=== PATIENT | female | born 1955 | race Caucasian/White ===

== ENCOUNTER 2018-05-09 02:55 | Inpatient (IN) ==
[2018-05-09] MEDS ORDERED: RAPID SEQUENCE INDUCTION BAG ONE (02:59)
[2018-05-09] MEDS ORDERED: ETOMIDATE 2 MG/ML 20 ML VIAL IV ONE (03:02)
[2018-05-09] MEDS ORDERED: SODIUM CHLORIDE 0.9% 1000ML 2,000 ML IV ONE (03:28)
[2018-05-09] MEDS ORDERED: DKA GOAL RANGE 150-250 mg/dl ONE (03:32)
[2018-05-09] MEDS ORDERED: NYSTATIN CR 15 GM TUBE EXT STA (03:35)
[2018-05-09 03:44] LABS: iSTAT Hemoglobin 11.9 g/dl (12.0-16.0); iSTAT Ionized Calcium 1.22 mmol/l (1.12-1.32)
[2018-05-09 03:47] LABS: INR 1.3 (0.9-1.1); Partial Thromboplastin Ratio 0.8; Partial Thromboplastin Time 21.5 Seconds (21.0-31.0); Prothrombin Time 12.6 Seconds (9.0-12.0)
[2018-05-09] MEDS: INSULIN REGULAR 250 UNITS in SODIUM CHLORIDE 0.9% 247.5 ML IV SCH (03:59)
[2018-05-09 04:00] LABS: Appearance Urine Turbid (Clear); Color Urine Dark Yellow; Epithelial Cell Urine Auto >30 /lpf (0-5); Glucose Urine UA 1+ (Negative); Ketones Urine Trace (Negative); Leukocyte Esterase Urine 1+ (Negative); Nitrite Urine Negative (Negative); Protein Urine 3+ (Negative); Specific Gravity Urine 1.024 (1.000-1.030); Urobilinogen Urine Negative (Negative)
[2018-05-09] MEDS ORDERED: NovoLIN-R BOLUS FROM BAG IV ONE (04:00)
[2018-05-09 04:04] LABS: Alanine Aminotransferase 19 U/L (12-78); Albumin Globulin Ratio 0.5 (0.9-2); Albumin Level 2.2 gm/dl (3.4-5.0); Alkaline Phosphatase 94 U/L (45-117); Aspartate Aminotransferase 27 U/L (15-37); BUN Creatinine Ratio 33.6 (10-20); Bilirubin,Total 0.5 mg/dl (0.2-1); Blood Urea Nitrogen 69 mg/dl (7-18); Calcium 8.6 mg/dl (8.5-10.1); Carbon Dioxide 31 mmol/L (21-32); Chloride 106 mmol/L (98-107); Creatine Kinase 245 U/L (26-192); Est GFR (African American) 29.2; Est GFR (Non-African American) 25.2; Globulin 4.4 gm/dl (2.5-4.0); Glucose 469 mg/dl (70-99); Potassium 5.3 mmol/L (3.5-5.1); Sodium 138 mmol/L (136-145); Total Protein 6.6 gm/dl (6.4-8.2)
[2018-05-09 04:11] LABS: Hematocrit (blood only) 37.2 % (37-47); Hemoglobin 10.5 g/dL (12.0-16.0); Mean Corpuscular Hgb Conc 28.2 g/dL (32-36); Mean Corpuscular Volume 86.5 fL (80-100); Nucleated RBC # (auto) 0.11 K/uL (0-0); Nucleated RBC % (auto) 1.4 %; Platelet Count 27 K/uL (130-400); RDW Coefficient of Variation 18.2 % (11.5-14.5); RDW Standard Deviation 56.9 fL (36.4-46.3); White Blood Count 7.68 K/uL (4.8-10.8)
[2018-05-09 04:12] LABS: Basophils # (auto) 0.01 K/uL (0-0.2); Basophils % (auto) 0.1 %; Eosinophils # (auto) 0.03 K/uL (0-0.5); Eosinophils % (auto) 0.4 %; Hypochromasia Present; Immature Granulocytes # (auto) 0.05 K/uL (0.00-0.02); Immature Granulocytes % (auto) 0.7 %; Lymphocytes # (auto) 0.51 K/uL (1.2-3.4); Lymphocytes % (auto) 6.6 %; Monocytes # (auto) 0.54 K/uL (0.11-0.59); Neutrophils # (auto) 6.54 K/uL (1.4-6.5); Neutrophils % (auto) 85.2 %; Polychromasia 1+
[2018-05-09] MEDS: PROPOFOL 1,000 MG/100 ML VIAL IV SCH ×3 (04:20→17:24)
[2018-05-09 04:24] LABS: Creatine Kinase MB 6.7 ng/ml (0.5-3.6); NT Pro B Type Natriuretic Pept 8775 pg/ml (0-900); Troponin I 0.911 ng/ml (0-0.045)
[2018-05-09 04:39] LABS: Bilirubin Urine Negative (Negative); Ictotest Urine Negative (Negative)
[2018-05-09 04:40] LABS: Calcium Oxalate Crystals Urine Present (None Prsent); Cast Urine Automated >30 /lpf (0-5)
[2018-05-09 04:41] LABS: Bacteria Urine Automated 1+ (Negative)
[2018-05-09] MEDS ORDERED: PIPERACILLIN/TAZOBACTAM 4.5 GM/120 ML BAG IV ONE (04:42)
[2018-05-09] MEDS ORDERED: PIPERACILL/TAZOBAC CONSULT ACTIVE PRN ×2 (04:42→06:23)
[2018-05-09] MEDS ORDERED: DAPTOmycin 600 MG in SYRINGE 0 ML IV ONE (04:42)
[2018-05-09] MEDS ORDERED: IOVERSOL 100ml IV PRN (05:49)
--- NOTE | 2018-05-09 06:22 | Emergency Department Note ---
Entered by Kamran Becker acting as a scribe for History of Present Illness General Chief complaint: Hyperglycemia Source: family and EMS History of Present Illness Provider complaint: Hyperglycemia Onset (ago): hour(s) (About an hour ago) Location: head Pain Consistency: + other (Episodic) Associated symptoms: + confusion and + other (Altered mental status, respiratory issues) The patient is a 62 year old female who presents to the Emergency Room via EMS with an episode of hyperglycemia and respiratory issues that started about an hour prior to arrival, per EMS. Per EMS they were called to the house because she had an altered mental status and upon arrival she had a blood sugar that was 600+. She was also confused when trying to answer questions. Her blood pressure on scene was in the 130s systolic and her pulse rate was in the 70s. En route to the hospital she started going in and out of consciousness as well as some respitatory issues. Her C02 was in the 70s and her O2 sat was in the 80s on C-PAP with 1 albuterol in it. The patient was then intubated before arriving in the ED. En route she was given 30 of Etomidate, 10 of Versed, 100 of Fentanyl, 200 of Bicarb, 10 of Calcium and 550 of fluids. The patient has a history of renal failure, stage four metastatic breast cancer, CHF, and Diabetes. Per the patient's , the patient started getting a little strange around 1999 after eating dinner. He states she checked her blood sugar, which was elevated, but he is not sure if she took her insulin. Around 2229 he reports that she was very out of it and he checked her blood sugar which was 450. He tried to give her insulin but reports when he took the needle out of her, it was bent so he is not sure if she received any of it. She is currently not getting any chemotherapy for her cancer but she is on some other drug for it. He also noted that 2 days ago her [facility] doctor took her off of her Eliquis, Lisinopril and other drugs he did not know the name of because her platelet count is low around 33. He also said that her cancer has spread to her lungs, she has blood clots in both legs, and she has fractures in her shoulder, vertebrae, and ribs. Home Medications Home Medications Medication Instructions Recorded Confirmed Type anastrozole 1 mg PO DAILY 03/05/18 05/09/18 History atenolol 50 mg PO BID 03/05/18 05/09/18 History cholecalciferol (vitamin D3) 2,000 unit PO DAILY 03/05/18 05/09/18 History [Vitamin D3] fexofenadine [Rocio Allergy] 180 mg PO DAILY 03/05/18 05/09/18 History insulin aspart U-100 0 units SUBCUT AC 03/05/18 05/09/18 History insulin glargine [Lantus U-100 22 unit SUBCUT QPM 03/05/18 05/09/18 History Insulin] lorazepam 1 mg PO BID PRN 03/05/18 05/09/18 History oxycodone 5 - 10 mg PO Q6H PRN 03/05/18 05/09/18 History tizanidine 4 mg PO BID 03/05/18 05/09/18 History apixaban [Eliquis] See Label Instructions .ROUTE 03/06/18 05/09/18 Rx .COMPLEX #74 ea dexamethasone [Decadron] 40 mg PO DIRECTED 05/09/18 05/09/18 History turmeric-turmeric root extract 450 mg PO DAILY 05/09/18 05/09/18 History Allergies Allergy/AdvReac Type Severity Reaction Status Date / Time gabapentin AdvReac Hallucinati Verified 05/09/18 03:34 ng Past Med/Surg History Medical History Thrombocytopenia (Chronic) Metastatic breast cancer (Chronic) CKD (chronic kidney disease), stage III (Chronic) ATN (acute tubular necrosis) (Resolved) DM type 2 (diabetes mellitus, type 2) (Chronic) Hyperlipidemia (Chronic) Irritable bowel syndrome (Chronic) Rheumatoid arthritis (Chronic) Osteoarthritis (Chronic) Hypertension (Chronic) Breast cancer metastasized to bone (Inactive) Chronic kidney disease (Inactive) Rheumatoid arthritis (Inactive) Surgical History History of hernia repair (Chronic) Family History Mother Stroke Social History Current Living Situation: Spouse Other Information That Helps Us Care for You: No Feels Safe at Home: Yes Smoking Status: Never smoker Do You Dip or Chew Tobacco: No Second Hand Exposure: No Tobacco Cessation Education Requested by Patient: No Hx Alcohol Use: No Hx Substance Use: No Beliefs That Will Affect Care: None Preferred Language: Kazakh Communication Ability: Effective Review of Systems Unobtainable due to reduced consciousness Physical Exam Vital Signs Vital Signs - 24 hr 05/09/18 02:55 05/09/18 03:00 05/09/18 03:02 Temperature 36.5 C Temperature Source Oral Rectal Temperature Sepsis Recent Fever Within 48 Hours No Sepsis New/Unexplained Change in Mental Status No Sepsis Action Taken by Nursing No Action Required Pulse Rate 66 56 L Pulse Rate [Apical] Pulse Rhythm [Apical] Respiratory Rate 24 Respiratory Effort / Characteristics Respiratory Depth Blood Pressure 108/65 108/65 Blood Pressure [Right Arm] Blood Pressure Mean 79 79 Blood Pressure Mean [Right Arm] Blood Pressure Position [Right Arm] Pulse Oximetry 98 98 88 L Oxygen Delivery Method Ambu-Bag Mechanical Vent Oxygen Flow Rate 15 Fraction of Inspired Oxygen SaO2/FiO2 Ratio 05/09/18 03:07 05/09/18 03:11 05/09/18 03:13 Temperature Temperature Source Rectal Temperature Sepsis Recent Fever Within 48 Hours Sepsis New/Unexplained Change in Mental Status Sepsis Action Taken by Nursing Pulse Rate 72 54 L 62 Pulse Rate [Apical] Pulse Rhythm [Apical] Respiratory Rate 20 20 Respiratory Effort / Characteristics Respiratory Depth Blood Pressure 99/53 L 90/30 L Blood Pressure [Right Arm] Blood Pressure Mean 68 50 Blood Pressure Mean [Right Arm] Blood Pressure Position [Right Arm] Pulse Oximetry 91 98 Oxygen Delivery Method Oxygen Flow Rate Fraction of Inspired Oxygen 100 SaO2/FiO2 Ratio 05/09/18 03:16 05/09/18 03:20 05/09/18 03:21 Temperature Temperature Source Rectal Temperature Sepsis Recent Fever Within 48 Hours Sepsis New/Unexplained Change in Mental Status Sepsis Action Taken by Nursing Pulse Rate 55 L 51 L 51 L Pulse Rate [Apical] Pulse Rhythm [Apical] Respiratory Rate Respiratory Effort / Characteristics Respiratory Depth Blood Pressure 96/55 L 95/59 L Blood Pressure [Right Arm] Blood Pressure Mean 68 71 Blood Pressure Mean [Right Arm] Blood Pressure Position [Right Arm] Pulse Oximetry 98 96 92 Oxygen Delivery Method Oxygen Flow Rate Fraction of Inspired Oxygen SaO2/FiO2 Ratio 05/09/18 03:26 05/09/18 03:31 05/09/18 03:36 Temperature Temperature Source Rectal Temperature Sepsis Recent Fever Within 48 Hours Sepsis New/Unexplained Change in Mental Status Sepsis Action Taken by Nursing Pulse Rate 53 L 53 L 52 L Pulse Rate [Apical] Pulse Rhythm [Apical] Respiratory Rate Respiratory Effort / Characteristics Respiratory Depth Blood Pressure 98/67 L 110/70 112/68 Blood Pressure [Right Arm] Blood Pressure Mean 77 83 82 Blood Pressure Mean [Right Arm] Blood Pressure Position [Right Arm] Pulse Oximetry 98 100 100 Oxygen Delivery Method Oxygen Flow Rate Fraction of Inspired Oxygen SaO2/FiO2 Ratio 05/09/18 03:41 05/09/18 03:46 05/09/18 03:51 Temperature Temperature Source Rectal Temperature Sepsis Recent Fever Within 48 Hours Sepsis New/Unexplained Change in Mental Status Sepsis Action Taken by Nursing Pulse Rate 61 56 L 54 L Pulse Rate [Apical] Pulse Rhythm [Apical] Respiratory Rate 20 Respiratory Effort / Characteristics Respiratory Depth Blood Pressure 135/84 136/82 121/80 Blood Pressure [Right Arm] Blood Pressure Mean 101 100 93 Blood Pressure Mean [Right Arm] Blood Pressure Position [Right Arm] Pulse Oximetry 100 100 Oxygen Delivery Method Oxygen Flow Rate Fraction of Inspired Oxygen SaO2/FiO2 Ratio 05/09/18 03:56 05/09/18 04:01 05/09/18 04:06 Temperature Temperature Source Rectal Temperature Sepsis Recent Fever Within 48 Hours Sepsis New/Unexplained Change in Mental Status Sepsis Action Taken by Nursing Pulse Rate 52 L 52 L 51 L Pulse Rate [Apical] Pulse Rhythm [Apical] Respiratory Rate Respiratory Effort / Characteristics Respiratory Depth Blood Pressure 127/79 153/78 H 131/73 Blood Pressure [Right Arm] Blood Pressure Mean 95 103 92 Blood Pressure Mean [Right Arm] Blood Pressure Position [Right Arm] Pulse Oximetry 100 100 100 Oxygen Delivery Method Oxygen Flow Rate Fraction of Inspired Oxygen SaO2/FiO2 Ratio 05/09/18 04:11 05/09/18 04:16 05/09/18 04:21 Temperature Temperature Source Rectal Temperature Sepsis Recent Fever Within 48 Hours Sepsis New/Unexplained Change in Mental Status Sepsis Action Taken by Nursing Pulse Rate 51 L 50 L 52 L Pulse Rate [Apical] Pulse Rhythm [Apical] Respiratory Rate 20 Respiratory Effort / Characteristics Respiratory Depth Blood Pressure 136/78 131/80 150/80 H Blood Pressure [Right Arm] Blood Pressure Mean 97 97 103 Blood Pressure Mean [Right Arm] Blood Pressure Position [Right Arm] Pulse Oximetry 100 100 100 Oxygen Delivery Method Oxygen Flow Rate Fraction of Inspired Oxygen SaO2/FiO2 Ratio 05/09/18 04:26 05/09/18 04:31 05/09/18 04:36 Temperature Temperature Source Rectal Temperature Sepsis Recent Fever Within 48 Hours Sepsis New/Unexplained Change in Mental Status Sepsis Action Taken by Nursing Pulse Rate 56 L 53 L 52 L Pulse Rate [Apical] Pulse Rhythm [Apical] Respiratory Rate Respiratory Effort / Characteristics Respiratory Depth Blood Pressure 149/78 H 145/86 H 164/87 H Blood Pressure [Right Arm] Blood Pressure Mean 101 105 112 Blood Pressure Mean [Right Arm] Blood Pressure Position [Right Arm] Pulse Oximetry 100 100 100 Oxygen Delivery Method Oxygen Flow Rate Fraction of Inspired Oxygen SaO2/FiO2 Ratio 05/09/18 04:41 05/09/18 04:46 05/09/18 04:51 Temperature Temperature Source Rectal Temperature Sepsis Recent Fever Within 48 Hours Sepsis New/Unexplained Change in Mental Status Sepsis Action Taken by Nursing Pulse Rate 51 L 50 L 51 L Pulse Rate [Apical] Pulse Rhythm [Apical] Respiratory Rate Respiratory Effort / Characteristics Respiratory Depth Blood Pressure 163/92 H 155/89 H 164/85 H Blood Pressure [Right Arm] Blood Pressure Mean 115 111 111 Blood Pressure Mean [Right Arm] Blood Pressure Position [Right Arm] Pulse Oximetry 100 100 100 Oxygen Delivery Method Oxygen Flow Rate Fraction of Inspired Oxygen SaO2/FiO2 Ratio 05/09/18 04:56 05/09/18 05:01 05/09/18 05:06 Temperature Temperature Source Rectal Temperature Sepsis Recent Fever Within 48 Hours Sepsis New/Unexplained Change in Mental Status Sepsis Action Taken by Nursing Pulse Rate 50 L 51 L 50 L Pulse Rate [Apical] Pulse Rhythm [Apical] Respiratory Rate Respiratory Effort / Characteristics Respiratory Depth Blood Pressure 157/85 H 149/83 H 152/85 H Blood Pressure [Right Arm] Blood Pressure Mean 109 105 107 Blood Pressure Mean [Right Arm] Blood Pressure Position [Right Arm] Pulse Oximetry 100 100 100 Oxygen Delivery Method Oxygen Flow Rate Fraction of Inspired Oxygen SaO2/FiO2 Ratio 05/09/18 05:45 05/09/18 06:01 05/09/18 06:07 Temperature 34.8 C L Temperature Source Rectal Rectal Temperature 34.8 C L Sepsis Recent Fever Within 48 Hours Sepsis New/Unexplained Change in Mental Status Sepsis Action Taken by Nursing Pulse Rate 64 51 L Pulse Rate [Apical] 52 L Pulse Rhythm [Apical] Regular Respiratory Rate 20 18 20 Respiratory Effort / Characteristics Mechanically Ventilated Respiratory Depth Normal Blood Pressure 153/99 H Blood Pressure [Right Arm] 184/93 H Blood Pressure Mean 117 Blood Pressure Mean [Right Arm] 123 Blood Pressure Position [Right Arm] Lying Pulse Oximetry 100 97 100 Oxygen Delivery Method Oxygen Flow Rate Fraction of Inspired Oxygen 100 100 SaO2/FiO2 Ratio 100 05/09/18 06:31 05/09/18 07:01 Temperature Temperature Source Rectal Temperature 35.0 C L Sepsis Recent Fever Within 48 Hours Sepsis New/Unexplained Change in Mental Status Sepsis Action Taken by Nursing Pulse Rate 48 L 49 L Pulse Rate [Apical] Pulse Rhythm [Apical] Respiratory Rate 20 Respiratory Effort / Characteristics Respiratory Depth Blood Pressure 130/87 115/75 Blood Pressure [Right Arm] Blood Pressure Mean 101 88 Blood Pressure Mean [Right Arm] Blood Pressure Position [Right Arm] Pulse Oximetry 100 100 Oxygen Delivery Method Oxygen Flow Rate Fraction of Inspired Oxygen SaO2/FiO2 Ratio GENERAL: No distress, Morbidly obese, not following commands, ET tube in place HENT: Normocephalic, atraumatic. Oropharynx unremarkable. EYES: Normal conjunctiva. Sclera non-icteric. NECK: Supple. No nuchal rigidity. FROM. No masses. RESPIRATORY: Clear to auscultation. No wheezes. No rales. Normal respiratory effort. CARDIAC: Normal rate. Normal rhythm. No murmurs. No rubs. Extremities warm and well perfused. Pulses equal. No JVD. GI: Soft, non-distended. No tenderness to palpation. No rebound or guarding. No masses. RECTAL: Deferred. MUSCULOSKELETAL: Atraumatic. Chest examination reveals no tenderness. The back is symmetrical on inspection without obvious abnormality. There is no CVA tenderness to palpation. No joint edema. LOWER EXTREMITIES: Calves are equal size bilaterally and non-tender. No edema. No discoloration. NEURO: Normal sensorium. Arrived sedated with ET tube in place. Procedures Central Line Placement Left IJ: Time Out Performed: Yes Patient Placed on Monitor/Pulse Ox: Yes Prep: mask, gown and gloves Central Line Prep: Povidone-Iodine 1%, Chlorhexidine scrub and sterile drapes applied Ultrasound Used for Placement: Yes Central Line Lumen Inserted: triple Post Procedure: sutured in place, good blood return, all ports aspirated, flushed, capped and sterile dressing applied Post Procedure X-Ray: other (CT scan) Patient Tolerated Procedure: well and no complications Complications: none Course 0255: Past medical records reviewed. The patient was evaluated in room B01, and a complete history and physical examination were performed. 0315: Central line was placed. See procedure note for more information. 0338: I spoke to Dr. Nelda Molina about the patient's case and he is accepting the patient. He said to call the facility technician and inform him on the patient's case. 0416: I spoke to Dr. Santiago Ochoa [facility] Librarian about the patient's case and he said to send her to the ICU. Consultations Consultation #1: I spoke to Dr. Nelda Molina about the patient 's case and he is going to accept the patient. He said to call the facility technician and inform him on the patient's case. Time: 03:38 Consultation #2: I spoke to Dr. Santiago Ochoa [facility] Librarian about the patient's case and he said to send her to the ICU. Time: 04:16 Administered Medications Insulin Human Regular 250 (units/ Sodium Chloride) 250 mls @ 10.1 mls/hr IV .Q24H ADEBAYO; Protocol Stop: 06/08/18 03:44 Last Titration: 05/09/18 07:04 Dose: 10.1 units/hr, 10.1 mls/hr Titration: 05/09/18 06:30 Dose: 10.1 units/hr, 10.1 mls/hr Titration: 05/09/18 05:09 Dose: 8.4 units/hr, 8.4 mls/hr Admin: 05/09/18 03:59 Dose: 6 units/hr, 6 mls/hr Propofol (Diprivan) 1,000 mg in 100 mls @ 14.292 mls/hr IV .Q7H ADEBAYO; Protocol Stop: 05/12/18 04:14 Last Titration: 05/09/18 07:04 Dose: 15 mcg/kg/min, 14.3 mls/hr Titration: 05/09/18 05:23 Dose: 10 mcg/kg/min, 9.5 mls/hr Admin: 05/09/18 04:20 Dose: 5 mcg/kg/min, 4.8 mls/hr Sodium Chloride (Nss 1000ml) 1,000 mls @ 125 mls/hr IV .Q8H ADEBAYO Stop: 06/08/18 06:22 Last Admin: 05/09/18 06:35 Dose: 125 mls/hr Ioversol (Optiray 320 100ml) 100 ml IV ONCE PRN PRN Reason: Interaction Checking Stop: 05/13/18 05:48 Last Admin: 05/09/18 05:49 Dose: 93 ml Discontinued Medications Etomidate (Amidate) Confirm Administered Dose 40 mg IV .STK-MED ONE Stop: 05/09/18 03:03 Last Admin: 05/09/18 06:28 Dose: Not Given Sodium Chloride (Nss 1000ml) 2,000 mls @ 999 mls/hr IV .Q2H1M ONE Stop: 05/09/18 05:28 Last Infusion: 05/09/18 05:44 Dose: 0 mls/hr Infusion: 05/09/18 04:56 Dose: 999 mls/hr Infusion: 05/09/18 03:50 Dose: 500 mls/hr Admin: 05/09/18 03:10 Dose: 999 mls/hr Piperacillin Sod/Tazobactam Sod (Zosyn) 4.5 gm in 120 mls @ 240 mls/hr IV NOW ONE Stop: 05/09/18 05:11 Last Admin: 05/09/18 06:32 Dose: 240 mls/hr Insulin Human Regular (Novolin R Bolus From Bag) 6 units IV ONE ONE Stop: 05/09/18 04:01 Last Admin: 05/09/18 04:05 Dose: 6 units Miscellaneous () Confirm Administered Dose 1 ea .ROUTE .STK-MED ONE Stop: 05/09/18 03:00 Last Admin: 05/09/18 03:21 Dose: 1 ea Miscellaneous (Insulin Protocol Dka Goal Range) 1 ea N/A ONE ONE Stop: 05/09/18 03:33 Last Admin: 05/09/18 04:39 Dose: Not Given Nystatin (Nystatin) 1 appln EXT NOW STA Stop: 05/09/18 03:36 Last Admin: 05/09/18 06:33 Dose: 1 appln Medical Decision Making Differential Diagnosis Differential diagnoses includes but is not limited to toxic, metabolic, infectious, traumatic, cardiac, neurologic, hematologic, psychiatric and inflammatory etiologies. Medical Records Attestation: I reviewed the patient's medical records. Home Medications Current Medication List: was personally reviewed by me Laboratory Data Attestation: I reviewed the patient's lab results. Result diagrams: 05/09/18 03:20 05/09/18 03:20 Lab Results 05/09/18 05/09/18 05/09/18 Range/Units 03:15 03:16 03:20 WBC 7.68 (4.8-10.8) K/uL RBC 4.30 (4.2-5.4) M/uL Hgb 10.5 L (12.0-16.0) g/dL POC Hgb (12.0-16.0) g/dl Hct 37.2 (37-47) % POC Hct (37-47) % MCV 86.5 (80-100) fL MCH 24.4 L (25-34) pg MCHC 28.2 L (32-36) g/dL RDW Std Deviation 56.9 H (36.4-46.3) fL RDW Coeff of Flori 18.2 H (11.5-14.5) % Plt Count 27 L* (130-400) K/uL Immature Gran % (Auto) 0.7 % Neut % (Auto) 85.2 % Lymph % (Auto) 6.6 % Pratt % (Auto) 7.0 % Eos % (Auto) 0.4 % Baso % (Auto) 0.1 % Immature Gran # (Auto) 0.05 H (0.00-0.02) K/uL Neut # (Auto) 6.54 H (1.4-6.5) K/uL Lymph # (Auto) 0.51 L (1.2-3.4) K/uL Pratt # (Auto) 0.54 (0.11-0.59) K/uL Eos # (Auto) 0.03 (0-0.5) K/uL Baso # (Auto) 0.01 (0-0.2) K/uL Absolute Nucleated RBC 0.11 H (0-0) K/uL Nucleated RBC % (auto) 1.4 % Platelet Estimate SIGNIFIC DECREASED (Normal) Polychromasia 1+ Hypochromasia Present PT (9.0-12.0) Seconds INR (0.9-1.1) APTT (21.0-31.0) Seconds PTT Ratio Sample Site POC pH (7.35-7.45) POC pCO2 (35-46) mmHg POC pO2 (80-95) mmHg POC HCO3 (19-24) julian/L POC Base Excess (-9-1.8) julian/L ABG pH (7.35-7.45) ABG pCO2 (35-46) mmHg ABG pO2 (80-95) mm/Hg ABG HCO3 (19-24) mmol/L POC ABG O2 Sat (90-95) % ABG O2 Saturation (90-95) % ABG Base Excess (-9-1.8) mEq/L Robert Test (Pos) Barometric Pressure mm/Hg Oxygen Given O2 Delivery Device POC O2 Rate Minute Ventilation POC FiO2 % Tidal Volume PEEP POC Sodium (135-144) mEq/L Sodium (136-145) mmol/L POC Potassium (3.3-5.0) mEq/L Potassium (3.5-5.1) mmol/L POC Chloride (101-112) mEq/L Chloride (98-107) mmol/L Carbon Dioxide (21-32) mmol/L POC Total CO2 (24-31) mEq/l Anion Gap (3-11) POC Anion Gap (16-25) mmol/L POC BUN (7-18) mg/dl BUN (7-18) mg/dl Creatinine (0.6-1.2) mg/dl POC Creatinine (0.6-1.3) mg/dl Est Cr Clr Drug Dosing Est GFR ( Amer) Est GFR (Non-Af Amer) BUN/Creatinine Ratio (10-20) Glucose (70-99) mg/dl POC Glucose 510 H* (70-99) POC Glucose (other) (70-99) mg/dl Lactate (0.4-2.0) mmol/L Calcium (8.5-10.1) mg/dl POC Ioniz Calcium Glory (1.12-1.32) mmol/l Total Bilirubin (0.2-1) mg/dl AST (15-37) U/L ALT (12-78) U/L Alkaline Phosphatase (45-117) U/L Total Creatine Kinase (26-192) U/L CK-MB (CK-2) (0.5-3.6) ng/ml CK/CKMB % Calc (0-3.0) POC Troponin I (0-0.045) ng/ml Troponin I (0-0.045) ng/ml NT-Pro-B Natriuret Pep (0-900) pg/ml Total Protein (6.4-8.2) gm/dl Albumin (3.4-5.0) gm/dl Globulin (2.5-4.0) gm/dl Albumin/Globulin Ratio (0.9-2) Beta-Hydroxybutyric Acd (0.2-2.81) mg/dl Procalcitonin (0-0.5) ng/ml Urine Color Dark Yellow Urine Appearance Turbid H (Clear) Urine pH 5.0 (4.5-7.5) Ur Specific [place] 1.024 (1.000-1.030) Urine Protein 3+ H (Negative) Urine Glucose (UA) 1+ H (Negative) Urine Ketones Trace H (Negative) Urine Blood 1+ H (Negative) Urine Nitrite Negative (Negative) Urine Bilirubin Negative (Negative) Urine Urobilinogen Negative (Negative) Ur Leukocyte Esterase 1+ H (Negative) Urine WBC (Auto) 10-30 H (0-5) /hpf Urine RBC (Auto) 0-4 (0-4) /hpf U Hyaline Cast (Auto) >30 H (0-5) /lpf U Epithel Cells (Auto) >30 H (0-5) /lpf Urine Bacteria (Auto) 1+ H (Negative) Ur Renal Epithelial Cell Not Reportable Calcium Oxalate Crystal Present H (None Prsent) 05/09/18 05/09/18 05/09/18 Range/Units 03:20 03:20 03:20 WBC (4.8-10.8) K/uL RBC (4.2-5.4) M/uL Hgb (12.0-16.0) g/dL POC Hgb (12.0-16.0) g/dl Hct (37-47) % POC Hct (37-47) % MCV (80-100) fL MCH (25-34) pg MCHC (32-36) g/dL RDW Std Deviation (36.4-46.3) fL RDW Coeff of Flori (11.5-14.5) % Plt Count (130-400) K/uL Immature Gran % (Auto) % Neut % (Auto) % Lymph % (Auto) % Pratt % (Auto) % Eos % (Auto) % Baso % (Auto) % Immature Gran # (Auto) (0.00-0.02) K/uL Neut # (Auto) (1.4-6.5) K/uL Lymph # (Auto) (1.2-3.4) K/uL Pratt # (Auto) (0.11-0.59) K/uL Eos # (Auto) (0-0.5) K/uL Baso # (Auto) (0-0.2) K/uL Absolute Nucleated RBC (0-0) K/uL Nucleated RBC % (auto) % Platelet Estimate (Normal) Polychromasia Hypochromasia PT 12.6 H (9.0-12.0) Seconds INR 1.3 H (0.9-1.1) APTT 21.5 (21.0-31.0) Seconds PTT Ratio 0.8 Sample Site POC pH (7.35-7.45) POC pCO2 (35-46) mmHg POC pO2 (80-95) mmHg POC HCO3 (19-24) julian/L POC Base Excess (-9-1.8) julian/L ABG pH (7.35-7.45) ABG pCO2 (35-46) mmHg ABG pO2 (80-95) mm/Hg ABG HCO3 (19-24) mmol/L POC ABG O2 Sat (90-95) % ABG O2 Saturation (90-95) % ABG Base Excess (-9-1.8) mEq/L Robert Test (Pos) Barometric Pressure mm/Hg Oxygen Given O2 Delivery Device POC O2 Rate Minute Ventilation POC FiO2 % Tidal Volume PEEP POC Sodium (135-144) mEq/L Sodium (136-145) mmol/L POC Potassium (3.3-5.0) mEq/L Potassium (3.5-5.1) mmol/L POC Chloride (101-112) mEq/L Chloride (98-107) mmol/L Carbon Dioxide (21-32) mmol/L POC Total CO2 (24-31) mEq/l Anion Gap (3-11) POC Anion Gap (16-25) mmol/L POC BUN (7-18) mg/dl BUN (7-18) mg/dl Creatinine (0.6-1.2) mg/dl POC Creatinine (0.6-1.3) mg/dl Est Cr Clr Drug Dosing Est GFR ( Amer) Est GFR (Non-Af Amer) BUN/Creatinine Ratio (10-20) Glucose (70-99) mg/dl POC Glucose (70-99) POC Glucose (other) (70-99) mg/dl Lactate 1.4 (0.4-2.0) mmol/L Calcium (8.5-10.1) mg/dl POC Ioniz Calcium Glory (1.12-1.32) mmol/l Total Bilirubin (0.2-1) mg/dl AST (15-37) U/L ALT (12-78) U/L Alkaline Phosphatase (45-117) U/L Total Creatine Kinase (26-192) U/L CK-MB (CK-2) (0.5-3.6) ng/ml CK/CKMB % Calc (0-3.0) POC Troponin I (0-0.045) ng/ml Troponin I (0-0.045) ng/ml NT-Pro-B Natriuret Pep (0-900) pg/ml Total Protein (6.4-8.2) gm/dl Albumin (3.4-5.0) gm/dl Globulin (2.5-4.0) gm/dl Albumin/Globulin Ratio (0.9-2) Beta-Hydroxybutyric Acd (0.2-2.81) mg/dl Procalcitonin 0.22 (0-0.5) ng/ml Urine Color Urine Appearance (Clear) Urine pH (4.5-7.5) Ur Specific [place] (1.000-1.030) Urine Protein (Negative) Urine Glucose (UA) (Negative) Urine Ketones (Negative) Urine Blood (Negative) Urine Nitrite (Negative) Urine Bilirubin (Negative) Urine Urobilinogen (Negative) Ur Leukocyte Esterase (Negative) Urine WBC (Auto) (0-5) /hpf Urine RBC (Auto) (0-4) /hpf U Hyaline Cast (Auto) (0-5) /lpf U Epithel Cells (Auto) (0-5) /lpf Urine Bacteria (Auto) (Negative) Ur Renal Epithelial Cell Calcium Oxalate Crystal (None Prsent) 05/09/18 05/09/1819 Range/Units 03:20 03:20 03:21 WBC (4.8-10.8) K/uL RBC (4.2-5.4) M/uL Hgb (12.0-16.0) g/dL POC Hgb 11.9 L (12.0-16.0) g/dl Hct (37-47) % POC Hct 35 L (37-47) % MCV (80-100) fL MCH (25-34) pg MCHC (32-36) g/dL RDW Std Deviation (36.4-46.3) fL RDW Coeff of Flori (11.5-14.5) % Plt Count (130-400) K/uL Immature Gran % (Auto) % Neut % (Auto) % Lymph % (Auto) % Pratt % (Auto) % Eos % (Auto) % Baso % (Auto) % Immature Gran # (Auto) (0.00-0.02) K/uL Neut # (Auto) (1.4-6.5) K/uL Lymph # (Auto) (1.2-3.4) K/uL Pratt # (Auto) (0.11-0.59) K/uL Eos # (Auto) (0-0.5) K/uL Baso # (Auto) (0-0.2) K/uL Absolute Nucleated RBC (0-0) K/uL Nucleated RBC % (auto) % Platelet Estimate (Normal) Polychromasia Hypochromasia PT (9.0-12.0) Seconds INR (0.9-1.1) APTT (21.0-31.0) Seconds PTT Ratio Sample Site POC pH (7.35-7.45) POC pCO2 (35-46) mmHg POC pO2 (80-95) mmHg POC HCO3 (19-24) julian/L POC Base Excess (-9-1.8) julian/L ABG pH (7.35-7.45) ABG pCO2 (35-46) mmHg ABG pO2 (80-95) mm/Hg ABG HCO3 (19-24) mmol/L POC ABG O2 Sat (90-95) % ABG O2 Saturation (90-95) % ABG Base Excess (-9-1.8) mEq/L Robert Test (Pos) Barometric Pressure mm/Hg Oxygen Given O2 Delivery Device POC O2 Rate Minute Ventilation POC FiO2 % Tidal Volume PEEP POC Sodium 140 (135-144) mEq/L Sodium 138 (136-145) mmol/L POC Potassium 5.3 H (3.3-5.0) mEq/L Potassium 5.3 H (3.5-5.1) mmol/L POC Chloride 104 (101-112) mEq/L Chloride 106 (98-107) mmol/L Carbon Dioxide 31 (21-32) mmol/L POC Total CO2 28 (24-31) mEq/l Anion Gap 1.0 L (3-11) POC Anion Gap 14.0 L (16-25) mmol/L POC BUN 64 H (7-18) mg/dl BUN 69 H (7-18) mg/dl Creatinine 2.06 H (0.6-1.2) mg/dl POC Creatinine 1.7 H (0.6-1.3) mg/dl Est Cr Clr Drug Dosing Not Reportable Est GFR ( Amer) 29.2 Est GFR (Non-Af Amer) 25.2 BUN/Creatinine Ratio 33.6 H (10-20) Glucose 469 H* (70-99) mg/dl POC Glucose (70-99) POC Glucose (other) 472 H* (70-99) mg/dl Lactate (0.4-2.0) mmol/L Calcium 8.6 (8.5-10.1) mg/dl POC Ioniz Calcium Glory 1.22 (1.12-1.32) mmol/l Total Bilirubin 0.5 (0.2-1) mg/dl AST 27 (15-37) U/L ALT 19 (12-78) U/L Alkaline Phosphatase 94 (45-117) U/L Total Creatine Kinase 245 H (26-192) U/L CK-MB (CK-2) 6.7 H (0.5-3.6) ng/ml CK/CKMB % Calc 2.7 (0-3.0) POC Troponin I 0.71 H (0-0.045) ng/ml Troponin I 0.911 H* (0-0.045) ng/ml NT-Pro-B Natriuret Pep 8775 H (0-900) pg/ml Total Protein 6.6 (6.4-8.2) gm/dl Albumin 2.2 L (3.4-5.0) gm/dl Globulin 4.4 H (2.5-4.0) gm/dl Albumin/Globulin Ratio 0.5 L (0.9-2) Beta-Hydroxybutyric Acd 0.98 (0.2-2.81) mg/dl Procalcitonin (0-0.5) ng/ml Urine Color Urine Appearance (Clear) Urine pH (4.5-7.5) Ur Specific [place] (1.000-1.030) Urine Protein (Negative) Urine Glucose (UA) (Negative) Urine Ketones (Negative) Urine Blood (Negative) Urine Nitrite (Negative) Urine Bilirubin (Negative) Urine Urobilinogen (Negative) Ur Leukocyte Esterase (Negative) Urine WBC (Auto) (0-5) /hpf Urine RBC (Auto) (0-4) /hpf U Hyaline Cast (Auto) (0-5) /lpf U Epithel Cells (Auto) (0-5) /lpf Urine Bacteria (Auto) (Negative) Ur Renal Epithelial Cell Calcium Oxalate Crystal (None Prsent) 05/09/18 05/09/18 05/09/18 Range/Units 03:30 04:14 05:01 WBC (4.8-10.8) K/uL RBC (4.2-5.4) M/uL Hgb (12.0-16.0) g/dL POC Hgb (12.0-16.0) g/dl Hct (37-47) % POC Hct (37-47) % MCV (80-100) fL MCH (25-34) pg MCHC (32-36) g/dL RDW Std Deviation (36.4-46.3) fL RDW Coeff of Flori (11.5-14.5) % Plt Count (130-400) K/uL Immature Gran % (Auto) % Neut % (Auto) % Lymph % (Auto) % Pratt % (Auto) % Eos % (Auto) % Baso % (Auto) % Immature Gran # (Auto) (0.00-0.02) K/uL Neut # (Auto) (1.4-6.5) K/uL Lymph # (Auto) (1.2-3.4) K/uL Pratt # (Auto) (0.11-0.59) K/uL Eos # (Auto) (0-0.5) K/uL Baso # (Auto) (0-0.2) K/uL Absolute Nucleated RBC (0-0) K/uL Nucleated RBC % (auto) % Platelet Estimate (Normal) Polychromasia Hypochromasia PT (9.0-12.0) Seconds INR (0.9-1.1) APTT (21.0-31.0) Seconds PTT Ratio Sample Site POC pH (7.35-7.45) POC pCO2 (35-46) mmHg POC pO2 (80-95) mmHg POC HCO3 (19-24) julian/L POC Base Excess (-9-1.8) julian/L ABG pH 7.25 L (7.35-7.45) ABG pCO2 67 H (35-46) mmHg ABG pO2 286 H (80-95) mm/Hg ABG HCO3 29 H (19-24) mmol/L POC ABG O2 Sat (90-95) % ABG O2 Saturation 99.6 H (90-95) % ABG Base Excess 0.4 (-9-1.8) mEq/L Robert Test POS (Pos) Barometric Pressure 728.3 mm/Hg Oxygen Given 100% O2 Delivery Device POC O2 Rate Minute Ventilation POC FiO2 % Tidal Volume PEEP POC Sodium (135-144) mEq/L Sodium (136-145) mmol/L POC Potassium (3.3-5.0) mEq/L Potassium (3.5-5.1) mmol/L POC Chloride (101-112) mEq/L Chloride (98-107) mmol/L Carbon Dioxide (21-32) mmol/L POC Total CO2 (24-31) mEq/l Anion Gap (3-11) POC Anion Gap (16-25) mmol/L POC BUN (7-18) mg/dl BUN (7-18) mg/dl Creatinine (0.6-1.2) mg/dl POC Creatinine (0.6-1.3) mg/dl Est Cr Clr Drug Dosing Est GFR ( Amer) Est GFR (Non-Af Amer) BUN/Creatinine Ratio (10-20) Glucose (70-99) mg/dl POC Glucose 445 H* 447 H* (70-99) POC Glucose (other) (70-99) mg/dl Lactate (0.4-2.0) mmol/L Calcium (8.5-10.1) mg/dl POC Ioniz Calcium Glory (1.12-1.32) mmol/l Total Bilirubin (0.2-1) mg/dl AST (15-37) U/L ALT (12-78) U/L Alkaline Phosphatase (45-117) U/L Total Creatine Kinase (26-192) U/L CK-MB (CK-2) (0.5-3.6) ng/ml CK/CKMB % Calc (0-3.0) POC Troponin I (0-0.045) ng/ml Troponin I (0-0.045) ng/ml NT-Pro-B Natriuret Pep (0-900) pg/ml Total Protein (6.4-8.2) gm/dl Albumin (3.4-5.0) gm/dl Globulin (2.5-4.0) gm/dl Albumin/Globulin Ratio (0.9-2) Beta-Hydroxybutyric Acd (0.2-2.81) mg/dl Procalcitonin (0-0.5) ng/ml Urine Color Urine Appearance (Clear) Urine pH (4.5-7.5) Ur Specific [place] (1.000-1.030) Urine Protein (Negative) Urine Glucose (UA) (Negative) Urine Ketones (Negative) Urine Blood (Negative) Urine Nitrite (Negative) Urine Bilirubin (Negative) Urine Urobilinogen (Negative) Ur Leukocyte Esterase (Negative) Urine WBC (Auto) (0-5) /hpf Urine RBC (Auto) (0-4) /hpf U Hyaline Cast (Auto) (0-5) /lpf U Epithel Cells (Auto) (0-5) /lpf Urine Bacteria (Auto) (Negative) Ur Renal Epithelial Cell Calcium Oxalate Crystal (None Prsent) 05/09/18 05/09/18 Range/Units 06:06 06:29 WBC (4.8-10.8) K/uL RBC (4.2-5.4) M/uL Hgb (12.0-16.0) g/dL POC Hgb (12.0-16.0) g/dl Hct (37-47) % POC Hct (37-47) % MCV (80-100) fL MCH (25-34) pg MCHC (32-36) g/dL RDW Std Deviation (36.4-46.3) fL RDW Coeff of Flori (11.5-14.5) % Plt Count (130-400) K/uL Immature Gran % (Auto) % Neut % (Auto) % Lymph % (Auto) % Pratt % (Auto) % Eos % (Auto) % Baso % (Auto) % Immature Gran # (Auto) (0.00-0.02) K/uL Neut # (Auto) (1.4-6.5) K/uL Lymph # (Auto) (1.2-3.4) K/uL Pratt # (Auto) (0.11-0.59) K/uL Eos # (Auto) (0-0.5) K/uL Baso # (Auto) (0-0.2) K/uL Absolute Nucleated RBC (0-0) K/uL Nucleated RBC % (auto) % Platelet Estimate (Normal) Polychromasia Hypochromasia PT (9.0-12.0) Seconds INR (0.9-1.1) APTT (21.0-31.0) Seconds PTT Ratio Sample Site R Radial POC pH 7.23 L (7.35-7.45) POC pCO2 64 H (35-46) mmHg POC pO2 123 H (80-95) mmHg POC HCO3 28 H (19-24) julian/L POC Base Excess 0.0 (-9-1.8) julian/L ABG pH (7.35-7.45) ABG pCO2 (35-46) mmHg ABG pO2 (80-95) mm/Hg ABG HCO3 (19-24) mmol/L POC ABG O2 Sat 98.0 H (90-95) % ABG O2 Saturation (90-95) % ABG Base Excess (-9-1.8) mEq/L Robert Test NA (Pos) Barometric Pressure mm/Hg Oxygen Given O2 Delivery Device Ventilator POC O2 Rate 20 Minute Ventilation 8.8 POC FiO2 100 % Tidal Volume 500 PEEP 5 POC Sodium (135-144) mEq/L Sodium (136-145) mmol/L POC Potassium (3.3-5.0) mEq/L Potassium (3.5-5.1) mmol/L POC Chloride (101-112) mEq/L Chloride (98-107) mmol/L Carbon Dioxide (21-32) mmol/L POC Total CO2 30 (24-31) mEq/l Anion Gap (3-11) POC Anion Gap (16-25) mmol/L POC BUN (7-18) mg/dl BUN (7-18) mg/dl Creatinine (0.6-1.2) mg/dl POC Creatinine (0.6-1.3) mg/dl Est Cr Clr Drug Dosing Est GFR ( Amer) Est GFR (Non-Af Amer) BUN/Creatinine Ratio (10-20) Glucose (70-99) mg/dl POC Glucose 396 H* (70-99) POC Glucose (other) (70-99) mg/dl Lactate (0.4-2.0) mmol/L Calcium (8.5-10.1) mg/dl POC Ioniz Calcium Glory (1.12-1.32) mmol/l Total Bilirubin (0.2-1) mg/dl AST (15-37) U/L ALT (12-78) U/L Alkaline Phosphatase (45-117) U/L Total Creatine Kinase (26-192) U/L CK-MB (CK-2) (0.5-3.6) ng/ml CK/CKMB % Calc (0-3.0) POC Troponin I (0-0.045) ng/ml Troponin I (0-0.045) ng/ml NT-Pro-B Natriuret Pep (0-900) pg/ml Total Protein (6.4-8.2) gm/dl Albumin (3.4-5.0) gm/dl Globulin (2.5-4.0) gm/dl Albumin/Globulin Ratio (0.9-2) Beta-Hydroxybutyric Acd (0.2-2.81) mg/dl Procalcitonin (0-0.5) ng/ml Urine Color Urine Appearance (Clear) Urine pH (4.5-7.5) Ur Specific [place] (1.000-1.030) Urine Protein (Negative) Urine Glucose (UA) (Negative) Urine Ketones (Negative) Urine Blood (Negative) Urine Nitrite (Negative) Urine Bilirubin (Negative) Urine Urobilinogen (Negative) Ur Leukocyte Esterase (Negative) Urine WBC (Auto) (0-5) /hpf Urine RBC (Auto) (0-4) /hpf U Hyaline Cast (Auto) (0-5) /lpf U Epithel Cells (Auto) (0-5) /lpf Urine Bacteria (Auto) (Negative) Ur Renal Epithelial Cell Calcium Oxalate Crystal (None Prsent) Imaging Data My Impression: X ray results are stated below per my interpretation: Chest: 1 view: No evidence of congestion, PNA, or PTX. ET tube in good position. Radiologist's Impression: Radiology results as stated below per my review and the radiologist's interpretation: CT ANGIOGRAM OF THE CHEST CLINICAL HISTORY: Shortness of breath. Respiratory failure. History of prior DVT. COMPARISON STUDY: 03/05/2018 TECHNIQUE: Following the IV administration of 93 mL of Optiray-320, CT angiogram of the thorax was performed from the thoracic inlet to the lung bases utilizing the pulmonary embolus protocol. Images are reviewed in the axial, sagittal, and coronal planes. IV contrast was administered without complication. MIP imaging was performed. A dose lowering technique was utilized adhering to the principles of ALARA. CT DOSE: FINDINGS: No pathologically enlarged axillary mediastinal or hilar lymph nodes were visualized. There was no evidence of thoracic aortic dilatation. There were no pulmonary artery filling defects to indicate acute pulmonary embolism. There is trace bilateral pleural fluid There is an endotracheal tube positioned 11 mm above the kevin. There is bilateral lower lobe atelectasis/consolidation. There is an area of left upper lobe atelectasis/consolidation. There is diffusely abnormal trabecular pattern of the bone. There is a midthoracic compression fracture. This is likely pathologic. Clinical correlation regards to osseous metastasis is recommended. IMPRESSION: 1. Study limited due to the patient's large body habitus 2. No evidence of acute pulmonary embolism 3. Bilateral lower lobe atelectasis/consolidation. Area of left upper lobe atelectasis/consolidation 4. Diffusely abnormal trabecular pattern of the bones, suspicious for diffuse osseous metastasis. Clinical correlation in this regard is advocated Electronically signed by: Mode Levi M.D. 05/09/2018 6:[address] OF THE ABDOMEN AND PELVIS WITH CONTRAST CLINICAL HISTORY: Altered mental status. COMPARISON STUDY: None. TECHNIQUE: Following IV administration of 93 mL of Optiray-320, axial images of the abdomen and pelvis were obtained from the lung bases to the proximal femurs. Images were reviewed in the axial, sagittal, and coronal planes. IV contrast was administered without complication. Automated exposure control was utilized for the study. A dose lowering technique was utilized adhering to the principles of ALARA. FINDINGS: Please note that the chest CT will be reported separately. Exam is compromised by quantum mottle artifact. No pneumatosis, free air or portal venous gas is present. There is slight nodularity of the liver surface. There is slight gallbladder wall thickening. The spleen, adrenal glands and pancreas are unremarkable. There is no biliary or ductal dilatation. Note is made of a 3.9 cm cyst within the upper pole of the left kidney. There is no evidence for a bowel obstruction. A Ta balloon is present within the bladder which is classic. Ventral hernia contains loops of bowel without resultant bowel obstruction. There is colonic diverticulosis without evidence for acute diverticulitis. The appendix is normal. There is evidence for mild volume overload. There is chronic deformity of both hips with flattening of the femoral heads and marked joint space narrowing with osteophytosis. Visualized skeletal structures are heterogeneous with innumerable sclerotic lesions. IMPRESSION: 1. No bowel obstruction. No free air. 2. Heterogeneity of visualized skeletal structures with innumerable skeletal lesions, predominantly blastic. The findings favor blastic metastatic disease. 3. Evidence for mild volume overload. 4. Colonic diverticulosis without evidence for acute diverticulitis. 5. Bowel containing ventral hernia. Electronically signed by: Raul Rivera M.D. 05/09/2018 6:[address] SCAN OF THE BRAIN WITHOUT IV CONTRAST CLINICAL HISTORY: Change in mental status. COMPARISON STUDY: No priors. TECHNIQUE: Unenhanced axial CT scan of the brain is performed from the vertex to the skull base. A dose lowering technique was utilized adhering to the principles of ALARA. 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 Brain parenchyma: The brain parenchyma is normal in appearance. There is no hemorrhage, mass effect, or evidence of acute territorial ischemia by CT criteria. Contreras-white matter differentiation is preserved. No extra-axial fluid collection is seen. Ventricles, sulci, cisterns: Normal in configuration. Intracranial vasculature: The visualized intracranial vasculature at the skull base is normal in appearance. Calvarium: Unremarkable. Sinuses and mastoids: There is near complete opacification of the left sphenoid sinus. Mild mucosal thickening seen within the frontal and maxillary sinuses with a small air-fluid level in the right. Mucosal thickening is also noted in the ethmoid sinuses. The mastoid air cells are well pneumatized. Orbits: The bony orbits are grossly intact. IMPRESSION: There is no hemorrhage, mass effect, or evidence of acute territorial ischemia by CT criteria. Electronically signed by: Tommy Walter M.D. 05/09/2018 7:07 AM ECG Data Attestation: I personally reviewed and interpreted this ECG as follows: Indication: SOB/dyspnea Rate (beats per minute): 57 Rhythm: sinus bradycardia Findings: + other (Old septal infarct), + PVC (Occasional ) and + RBBB Blood Pressure Blood Pressure Findings: Elevated blood pressure Blood Pressure Disposition: further management by hospitalist LIBORIO Molina This is a 62-year-old female who presents the emergency department after she became unresponsive at home. The patient was intubated by EMS because she was unresponsive and not responding to BiPAP. In addition the patient was hypoxic. Upon arrival to the emergency department the patient is intubated with a single mind in place. A central line was placed as above. The patient was started on antibiotics however has a white blood cell count of 9. The patient was also given 2 units of bicarb as well as calcium for her elevated blood sugar. She was given 2 L of fluid here in the emergency department. Due to the patient's extensive medical history she was sent for a CAT scan of the chest abdomen and pelvis as well as head. Impression & Plan Hyperglycemia, Altered mental status Critical Care Time I have personally spent greater than 90 minutes of critical care time in the direct management of this patient. This includes bedside care, interpretation of diagnostic studies, and testing, discussion with consultants, patient, and family members, and other required patient management activities. This 90 minutes is in excess of all separately billable procedures. Critical Care Time: Yes Total Critical Care Time: 90 Discharge Plan Visit Data *Final* Discharge Date/Time: 05/09/18 05:20 Chief Complaint: Hyperglycemia ED Provider: Celestino Clifford Discharge Problem: Hyperglycemia, Altered mental status Patient Disposition: Admitted As Inpatient Discharge Instructions Interventions: ED Discharge Assessment Last Done: 05/09/18 05:20 The scribe's documentation has been prepared under my direction and personally reviewed by me in its entirety. I confirm that the note above accurately reflects all work, treatment, procedures, and medical decision making performed by me.
[2018-05-09] MEDS ORDERED: MoRPHine SULFATE 4 MG/ML 1 ML CARP\\VIAL IV PRN (06:23)
[2018-05-09] MEDS ORDERED: DC ALL PREVIOUSLY ORDERED DIABETES MEDS ONE (06:23)
[2018-05-09] MEDS ORDERED: METOPROLOL TARTRATE 1 MG/ML VIAL IV PRN (06:23)
[2018-05-09] MEDS ORDERED: INSULIN REGULAR 250 UNITS in SODIUM CHLORIDE 0.9% 247.5 ML IV SCH (06:23)
[2018-05-09] MEDS ORDERED: ICU PROTOCOL FOR HYPERGLYCEMIA PRN (06:23)
[2018-05-09] MEDS ORDERED: LORazepam 0.5 MG/1 ML VIAL IV PRN (06:23)
[2018-05-09] MEDS ORDERED: PHARMACY GLYCEMIC MGMT CONSULT PRN (06:29)
[2018-05-09 06:34] LABS: Allen Test POS (Pos); HCO3 ABG 29 mmol/L (19-24); Oxygen Saturation ABG 99.6 % (90-95); PCO2 ABG 67 mmHg (35-46); PO2 ABG 286 mm/Hg (80-95); pH ABG 7.25 (7.35-7.45)
[2018-05-09] MEDS: SODIUM CHLORIDE 0.9% 1000ML 1,000 ML IV SCH ×2 (06:35→14:54)
--- NOTE | 2018-05-09 06:38 | CT Scan Report ---
CT OF THE ABDOMEN AND PELVIS WITH CONTRAST CLINICAL HISTORY: Altered mental status. COMPARISON STUDY: None. TECHNIQUE: Following IV administration of 93 mL of Optiray-320, axial images of the abdomen and pelvi s were obtained from the lung bases to the proximal femurs. Images were reviewed in the axial, sagitt al, and coronal planes. IV contrast was administered without complication. Automated exposure contro l was utilized for the study. A dose lowering technique was utilized adhering to the principles of A LORENZO. FINDINGS: Please note that the chest CT will be reported separately. Exam is compromised by quantum m ottle artifact. No pneumatosis, free air or portal venous gas is present. There is slight nodularity of the liver surface. There is slight gallbladder wall thickening. The spleen, adrenal glands and morales creas are unremarkable. There is no biliary or ductal dilatation. Note is made of a 3.9 cm cyst withi n the upper pole of the left kidney. There is no evidence for a bowel obstruction. A Ta balloon is present within the bladder which is classic. Ventral hernia contains loops of bowel without resultan t bowel obstruction. There is colonic diverticulosis without evidence for acute diverticulitis. The a ppendix is normal. There is evidence for mild volume overload. There is chronic deformity of both hip s with flattening of the femoral heads and marked joint space narrowing with osteophytosis. Visualize d skeletal structures are heterogeneous with innumerable sclerotic lesions. IMPRESSION: 1. No bowel obstruction. No free air. 2. Heterogeneity of visualized skeletal structures with innumerable skeletal lesions, predominantly b lastic. The findings favor blastic metastatic disease. 3. Evidence for mild volume overload. 4. Colonic diverticulosis without evidence for acute diverticulitis. 5. Bowel containing ventral hernia. Electronically signed by: Raul Rivera M.D. 05/09/2018 6:37 AM
--- NOTE | 2018-05-09 06:38 | CT Scan Report ---
CT ANGIOGRAM OF THE CHEST CLINICAL HISTORY: Shortness of breath. Respiratory failure. History of prior DVT. COMPARISON STUDY: 03/05/2018 TECHNIQUE: Following the IV administration of 93 mL of Optiray-320, CT angiogram of the thorax was pe rformed from the thoracic inlet to the lung bases utilizing the pulmonary embolus protocol. Images ar e reviewed in the axial, sagittal, and coronal planes. IV contrast was administered without complicat ion. MIP imaging was performed. A dose lowering technique was utilized adhering to the principles of ALARA. CT DOSE: FINDINGS: No pathologically enlarged axillary mediastinal or hilar lymph nodes were visualized. There was no evidence of thoracic aortic dilatation. There were no pulmonary artery filling defects to indicate acute pulmonary embolism. There is trace bilateral pleural fluid There is an endotracheal tube positioned 11 mm above the kevin. There is bilateral lower lobe atelec tasis/consolidation. There is an area of left upper lobe atelectasis/consolidation. There is diffusely abnormal trabecular pattern of the bone. There is a midthoracic compression fractu re. This is likely pathologic. Clinical correlation regards to osseous metastasis is recommended. IMPRESSION: 1. Study limited due to the patient's large body habitus 2. No evidence of acute pulmonary embolism 3. Bilateral lower lobe atelectasis/consolidation. Area of left upper lobe atelectasis/consolidation 4. Diffusely abnormal trabecular pattern of the bones, suspicious for diffuse osseous metastasis. Cli nical correlation in this regard is advocated Electronically signed by: Mode Levi M.D. 05/09/2018 6:37 AM
[2018-05-09 06:42] LABS: iSTAT Arterial Blood Gas HCO3 28 meg/L (19-24); iSTAT Carbon Dioxide 30 mEq/l (24-31); iSTAT FiO2 100 %
--- NOTE | 2018-05-09 07:01 | XRay Report ---
XR chest 1V portable CLINICAL HISTORY: Sepsis COMPARISON STUDY: No previous studies for comparison. FINDINGS: The heart is the upper limits of normal in size. There is an endotracheal tube positioned 3 cm above the kevin. There is an area of left superhilar atelectasis/consolidation. There is an area of left lower lobe atelectasis/consolidation. Arthritic changes are present within the shoulders. Th ere is no failure. There are old bilateral rib fractures, possibly pathologic. IMPRESSION: 1. Endotracheal tube 3 cm above the kevin 2. Left superhilar and left lower lung zone atelectasis/consolidation 3. Old bilateral rib fractures, possibly pathologic. 4. No evidence of failure Electronically signed by: Mode Levi M.D. 05/09/2018 7:00 AM
--- NOTE | 2018-05-09 07:08 | CT Scan Report ---
CT SCAN OF THE BRAIN WITHOUT IV CONTRAST CLINICAL HISTORY: Change in mental status. COMPARISON STUDY: No priors. TECHNIQUE: Unenhanced axial CT scan of the brain is performed from the vertex to the skull base. A d ose lowering technique was utilized adhering to the principles of ALARA. 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 Brain parenchyma: The brain parenchyma is normal in appearance. There is no hemorrhage, mass effect, or evidence of acute territorial ischemia by CT criteria. Contreras-white matter differentiation is preser la. No extra-axial fluid collection is seen. Ventricles, sulci, cisterns: Normal in configuration. Intracranial vasculature: The visualized intracranial vasculature at the skull base is normal in appe arance. Calvarium: Unremarkable. Sinuses and mastoids: There is near complete opacification of the left sphenoid sinus. Mild mucosal t hickening seen within the frontal and maxillary sinuses with a small air-fluid level in the right. Mu cosal thickening is also noted in the ethmoid sinuses. The mastoid air cells are well pneumatized. Orbits: The bony orbits are grossly intact. IMPRESSION: There is no hemorrhage, mass effect, or evidence of acute territorial ischemia by CT chi felix. Electronically signed by: Tommy Walter M.D. 05/09/2018 7:07 AM
[2018-05-09 07:19] LABS: BUN Creatinine Ratio 35.8 (10-20); Calcium 8.7 mg/dl (8.5-10.1); Creatinine Clr Calc Pharmacy 45.6 ml/min; Est GFR (African American) 30.2; Est GFR (Non-African American) 26.1; Potassium 5.2 mmol/L (3.5-5.1)
[2018-05-09 07:22] LABS: Troponin I 2.53 ng/ml (0-0.045)
--- NOTE | 2018-05-09 07:37 | History and Physical Report ---
DATE OF ADMISSION: 05/09/2018 CHIEF COMPLAINT: Altered mental status, hyperglycemia. HISTORY OF PRESENT ILLNESS: This is a 62-year-old female with past medical history significant for type 2 diabetes insulin-dependent, history of allergic rhinitis, hypertension, morbid obesity, irritable bowel syndrome, panic disorder, and endometriosis. The patient was diagnosed with metastatic breast cancer, invasive ductal carcinoma grade 1, ER and NH receptor positive on November 2017 with bony metastatic disease and hypercalcemia. She was started on Arimidex 1 mg daily from November 2017 and also started on Xgeva for hypercalcemia every 4 weeks and she was also diagnosed with bilateral lower extremity DVTs. She had a last echo in February and there was no PE on the CAT scan at the time and she was placed on Eliquis as per hematology/oncology recommendations. 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 She recently saw heme/onc on 05/01/2018. At that time, the lab work showed platelets of 43 and heme/onc advised to check labs within a week and to continue Eliquis for now until the labs next week and if the platelets drop less than 30s, to stop the Eliquis and place her on steroids.Patient got labs done in [place] on May 06 and the patient received a call on that platelets were 33 and she needs to be stopped Eliquis and take Decadron 10 mg daily for 4 days, which the patient took Decadron 10 mg daily for 2 days and also stopped the Eliquis. On 05/09/2018 in the evening, sugars were okay at 7:00 as per , but around 9:00, her sugars were running high and she was getting confused on and off. She tried to give extra insulin, but the insulin pen needle seemed to bended and does not know whether she got her insulin or not and the EMS was called and blood sugars were running high she seems to be passed out and her blood pressure was low at that time, she was intubated and brought into the ER. Currently respiration, the patient is status post intubation and sedated with Diprivan and also she was hard stick, so left IJ central line was placed. Labs showed hyperkalemia with potassium of 5.3, platelets are 27, Blood sugars in 400s, but there was no acidosis and procalcitonin level was normal. The patient is not in DKA, BNP is elevated, chest x-ray done, does not look overloaded. She also has echo done in 10/2016, which showed right heart failure with moderately dilated right ventricle and right ventricular pressure overload. She has chronic lower extremity edema since she was diagnosed with DVTs and has some weeping there and some superficial skin ulcers. Lower extremities are slightly erythematous, but her says that they are same for the last few months. says otherwise, her appetite was not that great, Can walk with help of a walker and denied any pain. Denied any chest pain. She has ongoing diarrhea. No fevers or cough. cooks food for her. Apparently, she was doing okay until this happened. Could not get any review of symptoms as the patient is currently intubated. ALLERGIES: GABAPENTIN. PAST MEDICAL HISTORY: As mentioned above. PAST SURGICAL HISTORY: Laparoscopy and hysteroscopy, repair of incisional hernia with lysis of adhesions. MEDICATIONS: The patient is on Decadron 40 mg daily for 4 days, Eliquis 5 mg b.i.d. which is on hold currently, turmeric 450 mg daily, Arimidex 1 mg daily, oxycodone IR 5 mg every 6 hours p.r.n., tizanidine 4 mg b.i.d., atenolol 50 mg b.i.d., vitamin D 2000 units p.o. daily, Rocio 180 mg p.o. daily, Lantus 20 units at bedtime, Ativan 1 mg p.o. b.i.d. p.r.n., insulin aspart 3 units t.i.d. with meals. Additional units as directed per protocol. FAMILY HISTORY: Father had diabetes, hypertension. Mother has hypertension, chronic kidney disease and diabetes. SOCIAL HISTORY: , lives with her . No smoking history. No alcohol history. No drug use. REVIEW OF SYMPTOMS: Currently unobtainable. PHYSICAL EXAMINATION: GENERAL: The patient is currently intubated and sedated, morbidly obese. VITAL SIGNS: Temperature 36.5, pulse 52, respiratory rate 20, blood pressure 150/80, oxygen 100% mechanical vent. HEENT: No pallor, no icterus. Pupils equal, round, and react to light. NECK: Status post left IJ, no neck masses seen. CARDIOVASCULAR: S1, S2 heard, regular rate and rhythm, no murmur, no gallop. RESPIRATORY SYSTEM: Normal AP diameter. No accessory muscle use. No wheezing, no crackles. ABDOMEN: Soft, bowel sounds present. No distention seen. CENTRAL NERVOUS SYSTEM: Currently status post sedation and intubated. EXTREMITIES: Bilateral lower extremity chronic skin changes present with mild erythematous changes and left superficial skin ulcers seen over the left ankle. LABS: WBC 7.6, hemoglobin 10.5, hematocrit 37.2, platelets are 27. PT 12.6, INR 1.3, APTT 21.5. Sodium 138, potassium 5.3, chloride 106, bicarbonate 31, BUN 69, creatinine 2, serum glucose 469, lactate 1.4, calcium 8.6, total bilirubin 0.5, AST 27, ALT 19, alkaline phosphatase 94, total creatine kinase 245, CK-MB 6.7. Troponin I 0.9. BNP 8700. Total protein 6.6. Beta hydroxybutyrate acid 0.9. Procalcitonin 0.2. Urinalysis, positive for leukocyte esterase and ketones. Chest x-ray, no obvious infiltrates or volume overload. ET tubes seen above the kevin. ASSESSMENT AND PLAN: This is a 62-year-old female with history of diabetes insulin-dependent, metastatic breast cancer, recent lower extremity DVTs, chronic thrombocytopenia presumed chronic ITP, recently started on Decadron for thrombocytopenia and also held Eliquis, who was brought in because of altered mental status and unresponsive episode and status post intubated by EMS. 1. Unresponsive episode, altered mental status, encephalopathy most likely secondary to hyperglycemia, possible infection, needs to rule out any brain mets or any bleeding. Await CT of the head and CT of the chest and CT abdomen and pelvis. Currently, status post intubated in the field. Hemodynamically stable, was hypotensive initially got 2 liters of fluid in the ER. Currently blood pressure improved, no elevation of the white count, but her left lower extremity ulcer seen, mild lower extremity erythema changes. Lactic acid is normal. Procalcitonin is normal. Blood sugars running high in 400, but the patient is not in DKA. We will admit to the ICU. Continue ventilator for now. Vent management as per critical care. Critical care notified. We will continue IV fluids at 125 mL per hour. ER started on dapto(not received) and Zosyn, Will continue IV Zosyn. Follow the blood cultures and urine cultures. Continue insulin drip protocol for hyperglycemia. Pharmacy consulted for hyperglycemia. Close monitor. 2. History of chronic thrombocytopenia, presumed ITP as per hematology/oncology. Outpatient labs a few days back showed platelets were 33 and her Eliquis was stopped and she was placed on Decadron 40 mg daily for 4 days, she took it for 2 days. Platelets are 27 today. We will hold the Decadron for hyperglycemia for now and consult hematology/oncology for further recommendations. No obvious signs of bleeding at this time. If there is any bleeding episode or platelets further drops, we will transfuse platelets. 3. Metastatic breast cancer with mets to the bones, diagnosed in November 2017. Currently on Arimidex daily and Xgeva every 4 weeks for hypercalcemia, recently saw heme/onc. Will follow the CT of the head to rule out any mets, may need an MRI of the brain. We will await hematology/oncology recommendations. 4. Anemia. Baseline, her hemoglobin was 12.1 on 05/01/2018, today is 10.5. Await imaging studies for any bleeding episode as the platelets are low and she was on Eliquis. When the patient is stable, we will also check for any stool sample, closely monitor the H and H. 5. Hyperkalemia. potassium 5.3Patient is on insulin, will be following the BMP q. 6 hours. 6. Acute kidney injury on chronic kidney disease stage III, baseline creatinine 1.2-1.4, presents with creatinine of 2, mostly from above, getting fluids. We will follow the labs. 7. Right-sided heart failure, acute. The patient's echo in 2016 showed moderately dilated right ventricle and the right ventricle pressure overload, not on any diuretics at home, currently was hypotensive and came in hyperglycemia, getting fluids. We will monitor for any volume overload. 8. Bilateral lower extremity DVTs, diagnosed in February 2018, on Eliquis, which is held a couple of days ago because of thrombocytopenia, currently getting CT chest to rule out PE. We will consider IVC filter placement. 9. Hypertension. Was hypotensive when came in. Holding atenolol. We will place on IV Lopressor p.r.n. 10. Possible lower extremity cellulitis or infection. Started on IV Zosyn. Follow the response. 11. Mild elevation in troponin. Mostly demand ischemia. Troponin is 0.9. We will follow the EKG, serial cardiac enzymes and echocardiogram, could be from the metabolic causes. 11. Deep venous thrombosis prophylaxis, SCDs for now. 12. Disposition: Close monitor in ICU. Level 1 full code. Total critical care time 60 minutes. MTDD
[2018-05-09 08:03] LABS: iSTAT Allen Test Pass; iSTAT Arterial Blood Gas HCO3 28 meg/L (19-24); iSTAT Carbon Dioxide 30 mEq/l (24-31); iSTAT FiO2 60 %
[2018-05-09] MEDS: INSULIN ASPART 100 UNITS/ML 3 ML PEN SC SCH ×4 (08:40→20:57)
[2018-05-09] MEDS ORDERED: INSULIN ASPART 100 UNITS/ML 3 ML PEN SC SCH (09:00)
--- NOTE | 2018-05-09 09:54 | Cardiology Consultation ---
Date of Consultation May 09, 2018 Assessment & Plan (1) Acute respiratory failure with hypoxia and hypercapnia: Respiratory failure secondary to pneumonia and acute on chronic right- sided heart failure. Ventilator management per ophthalmic technologist. CT results discussed with ophthalmic technologist who is less suspicious of pneumonia given lack of white count and fever, however, suspect mucous plugging. Bronchoscopy is planned at this time. Patient remains borderline hypotensive and bradycardic. Atenolol has been placed on hold. Hypotension also related to treatment with propofol. Patient currently receiving IV fluid at elevated rate, however, due to signs of volume overload, recommend reduction/discontinuation of IV fluid with addition of diuretic therapy as blood pressure allows to improve volume status. Will discuss further with nephrology. (2) Acute on chronic right heart failure: Patient appears volume overloaded with lower extremity as well as abdominal/pannus edema. Per discussion with , edema is a chronic finding. Echocardiogram with evidence of right ventricular pressure and volume overload. Attempt diuresis as tolerated however may consider addition of dobutamine and norepinephrine infusion to improve hemodynamics and RV output. (3) Acute on chronic renal failure: Serial BMP. Nephrology consultation requested. (4) Elevated troponin I level: Secondary to hypoxic /hypercapnic respiratory failure in the setting of possible CAP, mucous plugging, and right-sided heart failure. No left ventricular regional myocardial wall motion abnormalities on echocardiogram. Anticoagulation currently on hold in the setting of thrombocytopenia and ITP. (5) New onset right bundle branch block (RBBB): Suspect secondary to right ventricular pressure/volume overload. (6) Altered mental status: Secondary to hypoxic and hypercapnic respiratory failure, hyperglycemia, possible pneumonia/mucous plugging. (7) Hyperglycemia: Continue insulin infusion. (8) DVT of lower extremity, bilateral: Anticoagulation currently on hold. Consider vascular surgery consultation for placement of IVC filter. Await input from hematology regarding anticoagulation. (9) Thrombocytopenia: No overt signs of bleeding. Follow daily CBC. Hematology consultation pending. History of Present Illness Reason for Consultation: Elevated troponin, ECG changes Requesting Physician: Guy Hoyt MD Attending Physician: Guy Hoyt MD History of Present Illness Complex 62-year-old female presents with confusion and hyperglycemia. Due to decreased level of consciousness she was intubated in the emergency department. Subsequent blood gases demonstrate respiratory acidosis. Carries a history of metastatic breast cancer, diagnosis of bilateral deep venous thrombosis February 2018 and treated with Eliquis, ITP, morbid obesity with presumed obstructive sleep apnea, chronic renal insufficiency with history of hyperkalemia, and diabetes. CTA of the chest performed on admission negative for pulmonary embolus however demonstrating multi lobar pneumonia versus atelectasis. Patient treated with intravenous antibiotics. Recently prescribed Decadron due to drop in her platelet count. ITP managed/followed by hematology. Creatinine elevated on admission with a documented baseline of 1.4-1.6. Mild hyperkalemia noted. Her ECG demonstrates new right bundle branch block and sinus bradycardia. Her troponin is elevated at 2.50. Resting 2D transthoracic echocardiogram performed at the bedside demonstrate normal left ventricular systolic function and wall motion with moderate right ventricular dilatation and dysfunction. Indirect evidence of right ventricular pressure and volume overload. She is currently receiving multiple intravenous therapies including IV normal saline 125 cc/h. present at bedside. He offers history as patient is currently sedated and intubated. States his became confused in the evening. Noted elevated blood sugar for approximately 1 hour prior to summoning EMS. There was no history of chest discomfort or orthopnea. He states his is "full of fluid ". States this is a chronic issue with intermittent lower extremity wheezing. She is not treated with diuretic therapy in the outpatient setting. Allergies Allergy/AdvReac Type Severity Reaction Status Date / Time gabapentin AdvReac Hallucinati Verified 05/09/18 03:34 Home Medications Home Medications Medication Instructions Recorded Confirmed Type anastrozole 1 mg PO DAILY 03/05/18 05/09/18 History atenolol 50 mg PO BID 03/05/18 05/09/18 History cholecalciferol (vitamin D3) 2,000 unit PO DAILY 03/05/18 05/09/18 History [Vitamin D3] fexofenadine [Rocio Allergy] 180 mg PO DAILY 03/05/18 05/09/18 History insulin aspart U-100 0 units SUBCUT AC 03/05/18 05/09/18 History insulin glargine [Lantus U-100 22 unit SUBCUT QPM 03/05/18 05/09/18 History Insulin] lorazepam 1 mg PO BID PRN 03/05/18 05/09/18 History oxycodone 5 - 10 mg PO Q6H PRN 03/05/18 05/09/18 History tizanidine 4 mg PO BID 03/05/18 05/09/18 History apixaban [Eliquis] See Label Instructions .ROUTE 03/06/18 05/09/18 Rx .COMPLEX #74 ea dexamethasone [Decadron] 40 mg PO DIRECTED 05/09/18 05/09/18 History turmeric-turmeric root extract 450 mg PO DAILY 05/09/18 05/09/18 History Patient History Medical History Thrombocytopenia (Chronic) Metastatic breast cancer (Chronic) CKD (chronic kidney disease), stage III (Chronic) ATN (acute tubular necrosis) (Resolved) DM type 2 (diabetes mellitus, type 2) (Chronic) Hyperlipidemia (Chronic) Irritable bowel syndrome (Chronic) Rheumatoid arthritis (Chronic) Osteoarthritis (Chronic) Hypertension (Chronic) Breast cancer metastasized to bone (Inactive) Chronic kidney disease (Inactive) Rheumatoid arthritis (Inactive) Surgical History History of hernia repair (Chronic) Family History Mother Stroke Social History Current Living Situation: Spouse Other Information That Helps Us Care for You: No Feels Safe at Home: Yes Smoking Status: Never smoker Do You Dip or Chew Tobacco: No Second Hand Exposure: No Tobacco Cessation Education Requested by Patient: No Hx Alcohol Use: No Hx Substance Use: No Beliefs That Will Affect Care: None Communication Ability: Effective Review of Systems Pertinent positives noted per HPI which were taken from chart review as well as discussion with . A comprehensive 10 system review could not be pursued further as the patient is sedated and intubated per Physical Exam 2 Vital Signs (Past 24 Hours): Last Vital Signs Temp 35 C L 05/09/18 06:23 Pulse 50 L 05/09/18 08:00 Resp 20 05/09/18 08:00 BP 111/70 05/09/18 07:30 Pulse Ox 100 05/09/18 08:00 Physical Exam: General: Sedated/intubated. NAD. Morbidly obese.. HEENT: Normocephalic. Atraumatic. Conjunctiva pink, no scleral icterus. Neck: No carotid bruits, the carotid upstrokes are brisk. Unable to assess JVD secondary to body habitus. Heart: Regular, bradycardic, distant heart sounds. Normal S-1 and S-2 no S-3 or S-4 gallop. No murmurs or rub appreciated. PMI is not displaced. Lungs: Coarse breath sounds bilaterally. No rales or wheeze. Abdomen: Obese. 1-2+ pitting edema of pannus. Normal bowel sounds. Soft. Nontender. No masses or organomegaly. No abdominal bruits. Extremities: 2+ bilateral pretibial upper leg pitting edema. + Left pretibial ulcer. No clubbing, or cyanosis. Pulses: radial=2/4, posterior tibial=2/4. Neuro: sedated with propofol. Results & Data Laboratory Results Laboratory Results - last 24 hr 05/09/18 05/09/18 05/09/18 03:15 03:16 03:20 WBC 7.68 RBC 4.30 Hgb 10.5 L POC Hgb Hct 37.2 POC Hct MCV 86.5 MCH 24.4 L MCHC 28.2 L RDW Std Deviation 56.9 H RDW Coeff of Flori 18.2 H Plt Count 27 L* Immature Gran % (Auto) 0.7 Neut % (Auto) 85.2 Lymph % (Auto) 6.6 [place] % (Auto) 7.0 Eos % (Auto) 0.4 Baso % (Auto) 0.1 Immature Gran # (Auto) 0.05 H Neut # (Auto) 6.54 H Lymph # (Auto) 0.51 L [place] # (Auto) 0.54 Eos # (Auto) 0.03 Baso # (Auto) 0.01 Absolute Nucleated RBC 0.11 H Nucleated RBC % (auto) 1.4 Platelet Estimate SIGNIFIC DECREASED Polychromasia 1+ Hypochromasia Present PT INR APTT PTT Ratio Sample Site POC pH POC pCO2 POC pO2 POC HCO3 POC Base Excess ABG pH ABG pCO2 ABG pO2 ABG HCO3 POC ABG O2 Sat ABG O2 Saturation ABG Base Excess Robert Test Barometric Pressure Oxygen Given O2 Delivery Device POC O2 Rate Minute Ventilation POC FiO2 Tidal Volume PEEP POC Sodium Sodium POC Potassium Potassium POC Chloride Chloride Carbon Dioxide POC Total CO2 Anion Gap POC Anion Gap POC BUN BUN Creatinine POC Creatinine Est Cr Clr Drug Dosing Est GFR ( Amer) Est GFR (Non-Af Amer) BUN/Creatinine Ratio Glucose POC Glucose 510 H* POC Glucose (other) Lactate Calcium POC Ioniz Calcium Glory Total Bilirubin AST ALT Alkaline Phosphatase Total Creatine Kinase CK-MB (CK-2) CK/CKMB % Calc POC Troponin I Troponin I NT-Pro-B Natriuret Pep Total Protein Albumin Globulin Albumin/Globulin Ratio Beta-Hydroxybutyric Acd Procalcitonin Urine Color Dark Yellow Urine Appearance Turbid H Urine pH 5.0 Ur Specific [place] 1.024 Urine Protein 3+ H Urine Glucose (UA) 1+ H Urine Ketones Trace H Urine Blood 1+ H Urine Nitrite Negative Urine Bilirubin Negative Urine Urobilinogen Negative Ur Leukocyte Esterase 1+ H Urine WBC (Auto) 10-30 H Urine RBC (Auto) 0-4 U Hyaline Cast (Auto) >30 H U Epithel Cells (Auto) >30 H Urine Bacteria (Auto) 1+ H Ur Renal Epithelial Cell Not Reportable Calcium Oxalate Crystal Present H Hepatitis C Ab Screen 05/09/18 05/09/18 05/09/18 03:20 03:20 03:20 WBC RBC Hgb POC Hgb Hct POC Hct MCV MCH MCHC RDW Std Deviation RDW Coeff of Flori Plt Count Immature Gran % (Auto) Neut % (Auto) Lymph % (Auto) [place] % (Auto) Eos % (Auto) Baso % (Auto) Immature Gran # (Auto) Neut # (Auto) Lymph # (Auto) [place] # (Auto) Eos # (Auto) Baso # (Auto) Absolute Nucleated RBC Nucleated RBC % (auto) Platelet Estimate Polychromasia Hypochromasia PT 12.6 H INR 1.3 H APTT 21.5 PTT Ratio 0.8 Sample Site POC pH POC pCO2 POC pO2 POC HCO3 POC Base Excess ABG pH ABG pCO2 ABG pO2 ABG HCO3 POC ABG O2 Sat ABG O2 Saturation ABG Base Excess Robert Test Barometric Pressure Oxygen Given O2 Delivery Device POC O2 Rate Minute Ventilation POC FiO2 Tidal Volume PEEP POC Sodium Sodium POC Potassium Potassium POC Chloride Chloride Carbon Dioxide POC Total CO2 Anion Gap POC Anion Gap POC BUN BUN Creatinine POC Creatinine Est Cr Clr Drug Dosing Est GFR ( Amer) Est GFR (Non-Af Amer) BUN/Creatinine Ratio Glucose POC Glucose POC Glucose (other) Lactate 1.4 Calcium POC Ioniz Calcium Glory Total Bilirubin AST ALT Alkaline Phosphatase Total Creatine Kinase CK-MB (CK-2) CK/CKMB % Calc POC Troponin I Troponin I NT-Pro-B Natriuret Pep Total Protein Albumin Globulin Albumin/Globulin Ratio Beta-Hydroxybutyric Acd Procalcitonin 0.22 Urine Color Urine Appearance Urine pH Ur Specific [place] Urine Protein Urine Glucose (UA) Urine Ketones Urine Blood Urine Nitrite Urine Bilirubin Urine Urobilinogen Ur Leukocyte Esterase Urine WBC (Auto) Urine RBC (Auto) U Hyaline Cast (Auto) U Epithel Cells (Auto) Urine Bacteria (Auto) Ur Renal Epithelial Cell Calcium Oxalate Crystal Hepatitis C Ab Screen 05/09/18 05/09/18 05/09/18 03:20 03:20 03:20 WBC RBC Hgb POC Hgb 11.9 L Hct POC Hct 35 L MCV MCH MCHC RDW Std Deviation RDW Coeff of Flori Plt Count Immature Gran % (Auto) Neut % (Auto) Lymph % (Auto) [place] % (Auto) Eos % (Auto) Baso % (Auto) Immature Gran # (Auto) Neut # (Auto) Lymph # (Auto) [place] # (Auto) Eos # (Auto) Baso # (Auto) Absolute Nucleated RBC Nucleated RBC % (auto) Platelet Estimate Polychromasia Hypochromasia PT INR APTT PTT Ratio Sample Site POC pH POC pCO2 POC pO2 POC HCO3 POC Base Excess ABG pH ABG pCO2 ABG pO2 ABG HCO3 POC ABG O2 Sat ABG O2 Saturation ABG Base Excess Robert Test Barometric Pressure Oxygen Given O2 Delivery Device POC O2 Rate Minute Ventilation POC FiO2 Tidal Volume PEEP POC Sodium 140 Sodium 138 POC Potassium 5.3 H Potassium 5.3 H POC Chloride 104 Chloride 106 Carbon Dioxide 31 POC Total CO2 28 Anion Gap 1.0 L POC Anion Gap 14.0 L POC BUN 64 H BUN 69 H Creatinine 2.06 H POC Creatinine 1.7 H Est Cr Clr Drug Dosing Not Reportable Est GFR ( Amer) 29.2 Est GFR (Non-Af Amer) 25.2 BUN/Creatinine Ratio 33.6 H Glucose 469 H* POC Glucose POC Glucose (other) 472 H* Lactate Calcium 8.6 POC Ioniz Calcium Glory 1.22 Total Bilirubin 0.5 AST 27 ALT 19 Alkaline Phosphatase 94 Total Creatine Kinase 245 H CK-MB (CK-2) 6.7 H CK/CKMB % Calc 2.7 POC Troponin I Troponin I 0.911 H* NT-Pro-B Natriuret Pep 8775 H Total Protein 6.6 Albumin 2.2 L Globulin 4.4 H Albumin/Globulin Ratio 0.5 L Beta-Hydroxybutyric Acd 0.98 Procalcitonin Urine Color Urine Appearance Urine pH Ur Specific [place] Urine Protein Urine Glucose (UA) Urine Ketones Urine Blood Urine Nitrite Urine Bilirubin Urine Urobilinogen Ur Leukocyte Esterase Urine WBC (Auto) Urine RBC (Auto) U Hyaline Cast (Auto) U Epithel Cells (Auto) Urine Bacteria (Auto) Ur Renal Epithelial Cell Calcium Oxalate Crystal Hepatitis C Ab Screen Neg 05/09/18 05/09/18 05/09/18 03:21 03:30 04:14 WBC RBC Hgb POC Hgb Hct POC Hct MCV MCH MCHC RDW Std Deviation RDW Coeff of Flori Plt Count Immature Gran % (Auto) Neut % (Auto) Lymph % (Auto) [place] % (Auto) Eos % (Auto) Baso % (Auto) Immature Gran # (Auto) Neut # (Auto) Lymph # (Auto) [place] # (Auto) Eos # (Auto) Baso # (Auto) Absolute Nucleated RBC Nucleated RBC % (auto) Platelet Estimate Polychromasia Hypochromasia PT INR APTT PTT Ratio Sample Site POC pH POC pCO2 POC pO2 POC HCO3 POC Base Excess ABG pH 7.25 L ABG pCO2 67 H ABG pO2 286 H ABG HCO3 29 H POC ABG O2 Sat ABG O2 Saturation 99.6 H ABG Base Excess 0.4 Robert Test POS Barometric Pressure 728.3 Oxygen Given 100% O2 Delivery Device POC O2 Rate Minute Ventilation POC FiO2 Tidal Volume PEEP POC Sodium Sodium POC Potassium Potassium POC Chloride Chloride Carbon Dioxide POC Total CO2 Anion Gap POC Anion Gap POC BUN BUN Creatinine POC Creatinine Est Cr Clr Drug Dosing Est GFR ( Amer) Est GFR (Non-Af Amer) BUN/Creatinine Ratio Glucose POC Glucose 445 H* POC Glucose (other) Lactate Calcium POC Ioniz Calcium Glory Total Bilirubin AST ALT Alkaline Phosphatase Total Creatine Kinase CK-MB (CK-2) CK/CKMB % Calc POC Troponin I 0.71 H Troponin I NT-Pro-B Natriuret Pep Total Protein Albumin Globulin Albumin/Globulin Ratio Beta-Hydroxybutyric Acd Procalcitonin Urine Color Urine Appearance Urine pH Ur Specific [place] Urine Protein Urine Glucose (UA) Urine Ketones Urine Blood Urine Nitrite Urine Bilirubin Urine Urobilinogen Ur Leukocyte Esterase Urine WBC (Auto) Urine RBC (Auto) U Hyaline Cast (Auto) U Epithel Cells (Auto) Urine Bacteria (Auto) Ur Renal Epithelial Cell Calcium Oxalate Crystal Hepatitis C Ab Screen 05/09/18 05/09/18 05/09/18 05:01 06:06 06:29 WBC RBC Hgb POC Hgb Hct POC Hct MCV MCH MCHC RDW Std Deviation RDW Coeff of Flori Plt Count Immature Gran % (Auto) Neut % (Auto) Lymph % (Auto) [place] % (Auto) Eos % (Auto) Baso % (Auto) Immature Gran # (Auto) Neut # (Auto) Lymph # (Auto) [place] # (Auto) Eos # (Auto) Baso # (Auto) Absolute Nucleated RBC Nucleated RBC % (auto) Platelet Estimate Polychromasia Hypochromasia PT INR APTT PTT Ratio Sample Site R Radial POC pH 7.23 L POC pCO2 64 H POC pO2 123 H POC HCO3 28 H POC Base Excess 0.0 ABG pH ABG pCO2 ABG pO2 ABG HCO3 POC ABG O2 Sat 98.0 H ABG O2 Saturation ABG Base Excess Robert Test NA Barometric Pressure Oxygen Given O2 Delivery Device Ventilator POC O2 Rate 20 Minute Ventilation 8.8 POC FiO2 100 Tidal Volume 500 PEEP 5 POC Sodium Sodium POC Potassium Potassium POC Chloride Chloride Carbon Dioxide POC Total CO2 30 Anion Gap POC Anion Gap POC BUN BUN Creatinine POC Creatinine Est Cr Clr Drug Dosing Est GFR ( Amer) Est GFR (Non-Af Amer) BUN/Creatinine Ratio Glucose POC Glucose 447 H* 396 H* POC Glucose (other) Lactate Calcium POC Ioniz Calcium Glory Total Bilirubin AST ALT Alkaline Phosphatase Total Creatine Kinase CK-MB (CK-2) CK/CKMB % Calc POC Troponin I Troponin I NT-Pro-B Natriuret Pep Total Protein Albumin Globulin Albumin/Globulin Ratio Beta-Hydroxybutyric Acd Procalcitonin Urine Color Urine Appearance Urine pH Ur Specific [place] Urine Protein Urine Glucose (UA) Urine Ketones Urine Blood Urine Nitrite Urine Bilirubin Urine Urobilinogen Ur Leukocyte Esterase Urine WBC (Auto) Urine RBC (Auto) U Hyaline Cast (Auto) U Epithel Cells (Auto) Urine Bacteria (Auto) Ur Renal Epithelial Cell Calcium Oxalate Crystal Hepatitis C Ab Screen 05/09/18 05/09/18 05/09/18 06:30 07:31 07:49 WBC RBC Hgb POC Hgb Hct POC Hct MCV MCH MCHC RDW Std Deviation RDW Coeff of Flori Plt Count Immature Gran % (Auto) Neut % (Auto) Lymph % (Auto) [place] % (Auto) Eos % (Auto) Baso % (Auto) Immature Gran # (Auto) Neut # (Auto) Lymph # (Auto) [place] # (Auto) Eos # (Auto) Baso # (Auto) Absolute Nucleated RBC Nucleated RBC % (auto) Platelet Estimate Polychromasia Hypochromasia PT INR APTT PTT Ratio Sample Site R Radial POC pH 7.22 L POC pCO2 68 H POC pO2 76 L POC HCO3 28 H POC Base Excess 0.0 ABG pH ABG pCO2 ABG pO2 ABG HCO3 POC ABG O2 Sat 92.0 ABG O2 Saturation ABG Base Excess Robert Test Pass Barometric Pressure Oxygen Given O2 Delivery Device Ventilator POC O2 Rate 20 Minute Ventilation 10 POC FiO2 60 Tidal Volume 500 PEEP 5 POC Sodium Sodium 137 POC Potassium Potassium 5.2 H POC Chloride Chloride 105 Carbon Dioxide 27 POC Total CO2 30 Anion Gap 6.0 POC Anion Gap POC BUN BUN 72 H Creatinine 2.00 H POC Creatinine Est Cr Clr Drug Dosing 45.6 Est GFR ( Amer) 30.2 Est GFR (Non-Af Amer) 26.1 BUN/Creatinine Ratio 35.8 H Glucose 389 H* POC Glucose 326 H POC Glucose (other) Lactate Calcium 8.7 POC Ioniz Calcium Glory Total Bilirubin AST ALT Alkaline Phosphatase Total Creatine Kinase CK-MB (CK-2) CK/CKMB % Calc POC Troponin I Troponin I 2.530 H* NT-Pro-B Natriuret Pep Total Protein Albumin Globulin Albumin/Globulin Ratio Beta-Hydroxybutyric Acd 0.91 Procalcitonin Urine Color Urine Appearance Urine pH Ur Specific [place] Urine Protein Urine Glucose (UA) Urine Ketones Urine Blood Urine Nitrite Urine Bilirubin Urine Urobilinogen Ur Leukocyte Esterase Urine WBC (Auto) Urine RBC (Auto) U Hyaline Cast (Auto) U Epithel Cells (Auto) Urine Bacteria (Auto) Ur Renal Epithelial Cell Calcium Oxalate Crystal Hepatitis C Ab Screen 05/09/18 05/09/18 08:33 09:28 WBC RBC Hgb POC Hgb Hct POC Hct MCV MCH MCHC RDW Std Deviation RDW Coeff of Flori Plt Count Immature Gran % (Auto) Neut % (Auto) Lymph % (Auto) [place] % (Auto) Eos % (Auto) Baso % (Auto) Immature Gran # (Auto) Neut # (Auto) Lymph # (Auto) [place] # (Auto) Eos # (Auto) Baso # (Auto) Absolute Nucleated RBC Nucleated RBC % (auto) Platelet Estimate Polychromasia Hypochromasia PT INR APTT PTT Ratio Sample Site POC pH POC pCO2 POC pO2 POC HCO3 POC Base Excess ABG pH ABG pCO2 ABG pO2 ABG HCO3 POC ABG O2 Sat ABG O2 Saturation ABG Base Excess Robert Test Barometric Pressure Oxygen Given O2 Delivery Device POC O2 Rate Minute Ventilation POC FiO2 Tidal Volume PEEP POC Sodium Sodium POC Potassium Potassium POC Chloride Chloride Carbon Dioxide POC Total CO2 Anion Gap POC Anion Gap POC BUN BUN Creatinine POC Creatinine Est Cr Clr Drug Dosing Est GFR ( Amer) Est GFR (Non-Af Amer) BUN/Creatinine Ratio Glucose POC Glucose 359 H* 382 H* POC Glucose (other) Lactate Calcium POC Ioniz Calcium Glory Total Bilirubin AST ALT Alkaline Phosphatase Total Creatine Kinase CK-MB (CK-2) CK/CKMB % Calc POC Troponin I Troponin I NT-Pro-B Natriuret Pep Total Protein Albumin Globulin Albumin/Globulin Ratio Beta-Hydroxybutyric Acd Procalcitonin Urine Color Urine Appearance Urine pH Ur Specific [place] Urine Protein Urine Glucose (UA) Urine Ketones Urine Blood Urine Nitrite Urine Bilirubin Urine Urobilinogen Ur Leukocyte Esterase Urine WBC (Auto) Urine RBC (Auto) U Hyaline Cast (Auto) U Epithel Cells (Auto) Urine Bacteria (Auto) Ur Renal Epithelial Cell Calcium Oxalate Crystal Hepatitis C Ab Screen _ (1) DVT of lower extremity, bilateral Affected thrombotic vein of extremity: femoral Chronicity: acute Qualified Code(s): I82.413 - Acute embolism and thrombosis of femoral vein, bilateral (2) Altered mental status Altered mental status type: unspecified Coma depth: Coma timing: Qualified Code(s): R41.82 - Altered mental status, unspecified
[2018-05-09] MEDS ORDERED: DOBUTamine 500MG / 250ML D5W IV ONE (10:30)
[2018-05-09] MEDS ORDERED: PHARMACY GLYCEMIC MGMT CONSULT STA (10:42)
[2018-05-09] MEDS ORDERED: Heparin IV Standard *NO* Bolus SCH (10:45)
[2018-05-09] MEDS: DOBUTamine / D5W 500 MG/250 ML BAG IV SCH ×2 (10:45→21:19)
[2018-05-09] MEDS: NOREPINEPHRINE BIT INJ 8 MG in DEXTROSE 5% 500 ML IV SCH (10:45)
[2018-05-09] MEDS ORDERED: PANTOprazole 40 MG in SYRINGE 0 ML IV SCH (11:00)
--- NOTE | 2018-05-09 11:29 | Consultation ---
Date of Consultation May 09, 2018 Assessment & Plan (1) DVT of lower extremity, bilateral: At this point she has no repeat study to evaluate her lower extremities. Att this time ordered a bilateral lower extremity venous ultrasound. If she has new clot on this study then a filter to be recommended. If there is no new clot then anticoagulation should be all that is needed. This was discussed with the . He understood that if the new clots were seen in the field to be recommended. If everything was the same as the previous ultrasound and these clots that were there are fairly old and the chance of embolization is markedly decreased. Thank you very much for letting us participate in the care of this patient. Affected thrombotic vein of extremity: femoral Chronicity: acute Qualified Code(s): I82.413 - Acute embolism and thrombosis of femoral vein, bilateral History of Present Illness Reason for Consultation: History of bilateral lower extremity deep venous thrombosis. Attending Physician: Guy Hoyt MD History of Present Illness This is a 62-year-old female who developed deep venous thrombosis of both lower extremities in February of last year. She has been on Eliquis as an anticoagulant since then. She is admitted at this time with ITP and extremely low platelets. She is intubated at this time on a ventilator. She is sedated and not responsive to questions. There is been no new venous study of the lower extremities for any clot propagation done at this time. Allergies Allergy/AdvReac Type Severity Reaction Status Date / Time gabapentin AdvReac Hallucinati Verified 05/09/18 03:34 ng Home Medications Home Medications Medication Instructions Recorded Confirmed Type anastrozole 1 mg PO DAILY 03/05/18 05/09/18 History atenolol 50 mg PO BID 03/05/18 05/09/18 History cholecalciferol (vitamin D3) 2,000 unit PO DAILY 03/05/18 05/09/18 History [Vitamin D3] fexofenadine [Rocio Allergy] 180 mg PO DAILY 03/05/18 05/09/18 History insulin aspart U-100 0 units SUBCUT AC 03/05/18 05/09/18 History insulin glargine [Lantus U-100 22 unit SUBCUT QPM 03/05/18 05/09/18 History Insulin] lorazepam 1 mg PO BID PRN 03/05/18 05/09/18 History oxycodone 5 - 10 mg PO Q6H PRN 03/05/18 05/09/18 History tizanidine 4 mg PO BID 03/05/18 05/09/18 History apixaban [Eliquis] See Label Instructions .ROUTE 03/06/18 05/09/18 Rx .COMPLEX #74 ea dexamethasone [Decadron] 40 mg PO DIRECTED 05/09/18 05/09/18 History turmeric-turmeric root extract 450 mg PO DAILY 05/09/18 05/09/18 History Patient History Medical History Thrombocytopenia (Chronic) Metastatic breast cancer (Chronic) CKD (chronic kidney disease), stage III (Chronic) ATN (acute tubular necrosis) (Resolved) DM type 2 (diabetes mellitus, type 2) (Chronic) Hyperlipidemia (Chronic) Irritable bowel syndrome (Chronic) Rheumatoid arthritis (Chronic) Osteoarthritis (Chronic) Hypertension (Chronic) Breast cancer metastasized to bone (Inactive) Chronic kidney disease (Inactive) Rheumatoid arthritis (Inactive) Surgical History History of hernia repair (Chronic) Family History Mother Stroke Social History Current Living Situation: Spouse Other Information That Helps Us Care for You: No Feels Safe at Home: Yes Smoking Status: Never smoker Do You Dip or Chew Tobacco: No Second Hand Exposure: No Tobacco Cessation Education Requested by Patient: No Hx Alcohol Use: No Hx Substance Use: No Beliefs That Will Affect Care: None Communication Ability: Effective Review of Systems Unobtainable Physical Exam 2 Vital Signs (Past 24 Hours): Last Vital Signs Temp 35 C L 05/09/18 06:23 Pulse 50 L 05/09/18 10:00 Resp 20 05/09/18 08:00 BP 83/47 L 05/09/18 09:31 Pulse Ox 100 05/09/18 10:00 On exam the patient is intubated on a ventilator. She is a morbidly obese. Her lungs are clear. Heart had a regular rate and rhythm at this time. Extremities showed mild edema in the lower extremities. Pulses are intact in the upper and lower extremities.
[2018-05-09] MEDS: DEXAMETHASONE SOD PHOSPHATE 4 MG in SYRINGE 0 ML IV SCH ×2 (11:50→23:34)
[2018-05-09] MEDS: ANASTROZOLE 1 MG TAB PO SCH (12:06)
[2018-05-09] MEDS: PIPERACILLIN/TAZOBACTAM 4.5 GM in DEXTROSE 5% 100 ML IV SCH ×2 (12:41→20:56)
[2018-05-09 12:48] LABS: BUN Creatinine Ratio 39.4 (10-20); Calcium 8.7 mg/dl (8.5-10.1); Creatinine Clr Calc Pharmacy 52.4 ml/min; Est GFR (African American) 35.8; Est GFR (Non-African American) 30.9
[2018-05-09] MEDS: HEPARIN STANDARD DEXTROSE 25,000 UNITS/500 ML IV SCH (12:49)
[2018-05-09 12:56] LABS: Troponin I 3.15 ng/ml (0-0.045)
--- NOTE | 2018-05-09 13:08 | XRay Report ---
KUB CLINICAL HISTORY: Enteric tube placement. FINDINGS: An AP, portable, supine abdominal radiograph is correlated with abdominal CT dated 9. An enteric tube has been placed. The tip projects over the mid to distal stomach. No bowel obstruc tion is identified. No evidence of intraperitoneal free air is seen on this supine image. No abnormal abdominal calcifications are identified. The skeletal structures are osteopenic. Advanced spondyloti c changes noted throughout the spine. There is evidence of diffuse osteoblastic metastatic disease. IMPRESSION: 1. The enteric tube projects over the mid to distal stomach. 2. There is no evidence of bowel obstruction. 3. Changes of diffuse osteoblastic metastatic disease are again noted. Electronically signed by: Tommy Walter M.D. 05/09/2018 1:06 PM
--- NOTE | 2018-05-09 14:21 | Pharmacy Report ---
Glycemic Control Consultation - Date of Service May 09, 2018 - Scope Scope: Glycemic Pharmacist consulted by Dr Lutz on 05.09.18 for glycemic control and to write orders per [facility] inpatient glycemic control protocol - Objective Weight: 158.8 kg Accuchecks BSG (last 24hrs): 05/09/18 05/09/18 05/09/18 03:16 03:20 03:20 Glucose 469 H* POC Glucose 510 H* POC Glucose (other) 472 H* 05/09/18 05/09/18 05/09/18 04:14 05:01 06:06 Glucose POC Glucose 445 H* 447 H* 396 H* POC Glucose (other) 05/09/18 05/09/18 05/09/18 06:30 07:31 08:33 Glucose 389 H* POC Glucose 326 H 359 H* POC Glucose (other) 05/09/18 05/09/18 05/09/18 09:28 10:42 11:32 Glucose POC Glucose 382 H* 334 H 201 H POC Glucose (other) 05/09/18 05/09/18 12:14 12:40 Glucose 216 H POC Glucose 193 H POC Glucose (other) Laboratory Data (last 24hrs): 05/09/18 05/09/18 05/09/18 03:20 06:30 12:14 Potassium 5.3 H 5.2 H 5.0 Carbon Dioxide 31 27 25 Anion Gap 1.0 L 6.0 7.0 Creatinine 2.06 H 2.00 H 1.74 H Est Cr Clr Drug Dosing Not Reportable 45.6 52.4 Beta-Hydroxybutyric Acd 0.98 0.91 - Recent Pertinent Medications Outpatient Anti-diabetic Regimen: * Lantus 22 units SC qPM * Insulin aspart SC AC * A1c = 7.5 % on 03/05/18 The patient is currently receiving: * Insulin drip @ 10 units/hr Risk Factors for Insulin Resistance: * Steroids: dexamethasone 4 mg IV BID * Infection: ?PNA * Pressors: dobutamine, norepinephrine * Diet: NPO * Mechanical Ventilation: YES - Assessment & Plan Assessment & Plan: ASSESSMENT: * 62 yo F admitted unresponsive and intubated, possibly 2nd glycemic crisis. Patient not in DKA (B-OH butyric acid and anion gap wnl) although acidosis noted , likely 2nd respiratory acidosis. HHS a possibility 2nd high BSG >500 mg/dL, osmolality >320, elevated BUN/SCr ratio, and noted both decreased appetite and diarrhea - increasing risk of and data supporting possibly of profound dehydration caused by HHS * Discussed possible need for additional fluid resuscitation with healthcare management consultant ( Dr. Henderson) as patient has only received 2L bolus. He will consider, but also is hesitant to be aggressive 2nd significant right ventricle dilation, currently requiring dobutamine * Insulin drip to continue for now 2nd high rates and now also adding significant steroid dose. Will increase goal range to HHS suggested range. May need to maintain higher goal range for longer than usual 2nd limited ability to fluid resuscitate this patient (which is the best therapy for safely and effectively decreasing BSG's) PLAN FOR INPATIENT GLYCEMIC CONTROL: * IV insulin infusion per severe stress protocol * Goal Range 250 - 350 mg/dl * In the critical care setting, continuous IV insulin infusion has been shown to be the best method for achieving glycemic targets. * Please note that the plan above was derived based on current level of insulin resistance and hospital stress. These recommendations are appropriate for inpatient admission only. Plan of care upon discharge will need to be reassessed to avoid potential outpatient hypo/hyperglycemia. Thank you.
[2018-05-09 14:31] LABS: Hematocrit (blood only) 37.1 % (37-47); Hemoglobin 10.8 g/dL (12.0-16.0); Mean Corpuscular Hgb Conc 29.1 g/dL (32-36); Mean Corpuscular Volume 85.1 fL (80-100); RDW Coefficient of Variation 17.9 % (11.5-14.5); RDW Standard Deviation 55.2 fL (36.4-46.3); Red Blood Count 4.36 M/uL (4.2-5.4); White Blood Count 7.24 K/uL (4.8-10.8)
[2018-05-09 14:41] LABS: Basophils # (auto) 0.02 K/uL (0-0.2); Basophils % (auto) 0.3 %; Eosinophils # (auto) 0.08 K/uL (0-0.5); Eosinophils % (auto) 1.1 %; Immature Granulocytes # (auto) 0.03 K/uL (0.00-0.02); Immature Granulocytes % (auto) 0.4 %; Lymphocytes # (auto) 0.62 K/uL (1.2-3.4); Lymphocytes % (auto) 8.6 %; Monocytes # (auto) 0.23 K/uL (0.11-0.59); Monocytes % (auto) 3.2 %; Neutrophils # (auto) 6.26 K/uL (1.4-6.5); Neutrophils % (auto) 86.4 %; Nucleated RBC # (auto) 0.07 K/uL (0-0); Nucleated RBC % (auto) 0.9 %; Platelet Count 31 K/uL (130-400); Polychromasia 1+
--- NOTE | 2018-05-09 15:09 | Ultrasound Report ---
ULTRASOUND BILATERAL LOWER EXTREMITY VENOUS CLINICAL HISTORY: Deep venous thrombosis. COMPARISON STUDY: Bilateral lower extremity venous ultrasound dated 03/04/2018. TECHNIQUE: Real-time, grayscale, and color Doppler sonography of the deep veins of the right and left lower extremity was performed from the inguinal crease to the calf. The examination is severely degr aded by portable technique, large body habitus, and edema. Compressions could not be performed. FINDINGS: Right lower extremity: Broken flow is seen within the right common femoral vein, ventricles the proxi mal and mid superficial femoral veins. The distal superficial femoral vein and the popliteal vein stephanie wed no significant flow. No flow is identified within the calf vessels. Soft tissue edema is observed . Left lower extremity: There is broken flow seen within the common femoral, superficial femoral, and p opliteal veins. The calf vessels were not visualized due to overlying bandaging material. IMPRESSION: 1. Severely compromised examination. 2. Deep venous thrombosis is identified within both legs. See above. Electronically signed by: Tommy Walter M.D. 05/09/2018 3:08 PM
[2018-05-09] MEDS ORDERED: VECURONIUM BROMIDE 10 MG VIAL IV ONE (15:36)
[2018-05-09] MEDS ORDERED: MIDAZOLAM HCL 5 MG/ML VIAL IV ONE (15:36)
[2018-05-09] MEDS ORDERED: fentaNYL citrate 100 MCG/2 ML CARP IV ONE (15:36)
--- NOTE | 2018-05-09 16:54 | Oncology Consultation ---
Date of Consultation May 09, 2018 Assessment & Plan (1) DVT of lower extremity, bilateral: 62-year-old female, Oncology diagnosis and the treatment: - Right breast cancer, invasive ductal carcinoma, grade 1, ER and [place] receptor positive, Her2/Pauline equivocal by FISH and IHC. (11/22/2017) Bony metastatic disease Hypercalcemia at that time the diagnosis in November 2017. - Presently she is on Xgeva every monthly for hypercalcemia and bony metastases - Regarding breast cancer diagnosis, she is on anastrozole 1 mg once-a-day. As she is not on anything by mouth, we can hold anastrozole for now, we can restart in a once her clinical condition improves. - Thrombocytopenia, immature platelet fraction is around 9.6 on 03/05/2018. 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 Recently she received Decadron 40 mg once-a-day for 4 days which was started on 05/07/2018. No significant improvement of the platelet count noted with the Decadron therapy. She is on intravenous Decadron for the pulmonary problems. With the history of recent DVT and abnormal kidney cancer, I would not suggest intravenous immunoglobulin treatment for thrombocytopenia. We should consider for platelet transfusion as needed (if the platelet count is less than 15,000 or has bleeding complications) - Bilateral lower extremity DVT, noted on 03/05/2018, started her on Eliquis anticoagulant treatment. Because of low platelet count, she was advised to hold Eliquis at this time before this hospitalization. Platelet count was around 40, 000 as of 05/01/2017. Slight drop in the platelet count noted, I agree about restarting anticoagulant treatment intravenous heparin in her case and watch carefully. Will follow-up. Thanks for the considerable Christophe Light MD Hem/Onc History of Present Illness Attending Physician: Guy Hoyt MD 62-year-old female, Oncology diagnosis and the treatment: - Right breast cancer, invasive ductal carcinoma, grade 1, ER and [place] receptor positive, Her2/Pauline equivocal by FISH and IHC. (11/22/2017) Bony metastatic disease Hypercalcemia at that time the diagnosis in November 2017. - Presently she is on Xgeva every monthly for hypercalcemia and bony metastases - Regarding breast cancer diagnosis, she is on anastrozole 1 mg once-a-day. - Thrombocytopenia, immature platelet fraction is around 9.6 on 03/05/2018. 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 Recently she received Decadron 40 mg once-a-day for 4 days which was started on 2289. - Bilateral lower extremity DVT, noted on 03/05/2018, started her on Eliquis anticoagulant treatment. Because of low platelet count, she was advised to hold Eliquis at this time before this hospitalization. Platelet count was around 40, 000 as of 05/01/2017.. Other medical problems: -Hypertension, no evidence of coronary disease in the past - Ventral hernia. - Chronic kidney disease, she follows up with office agent. Serum creatinine was around 1.3 - 1.4 mg/dL. EGFR is around 44 - Severe rheumatoid arthritis and osteoarthritis. She was treated with methotrexate in the past, nowadays she is not on specific treatment for underlying rheumatoid arthritis. She follows with a industrial hire sales assistant in [place]. - Obesity. Her weight is around 260 lb. - Diabetes mellitus, on insulin therapy. - Hyperlipidemia. - History of blood transfusion the past. Now she's admitted in the hospital for altered mental status, confusional status , significantly elevated blood sugar level, acute on chronic respiratory failure , required intubation, I saw her at bedside, her son was also at bedside, reviewed her medical records , discuss the case with the marketing sales supervisor in ICU, no active bleeding from any sites, noticed to to have bilateral lower extremity DVT and so now restarted on anticoagulant treatment with intravenous heparin today. She has increasing bilateral leg edema. She is also on Pressure-support. Allergies Allergy/AdvReac Type Severity Reaction Status Date / Time gabapentin AdvReac Hallucinati Verified 05/09/18 03:34 ng Home Medications Home Medications Medication Instructions Recorded Confirmed Type anastrozole 1 mg PO DAILY 03/05/18 05/09/18 History atenolol 50 mg PO BID 03/05/18 05/09/18 History cholecalciferol (vitamin D3) 2,000 unit PO DAILY 03/05/18 05/09/18 History [Vitamin D3] fexofenadine [Rocio Allergy] 180 mg PO DAILY 03/05/18 05/09/18 History insulin aspart U-100 0 units SUBCUT AC 03/05/18 05/09/18 History insulin glargine [Lantus U-100 22 unit SUBCUT QPM 03/05/18 05/09/18 History Insulin] lorazepam 1 mg PO BID PRN 03/05/18 05/09/18 History oxycodone 5 - 10 mg PO Q6H PRN 03/05/18 05/09/18 History tizanidine 4 mg PO BID 03/05/18 05/09/18 History apixaban [Eliquis] See Label Instructions .ROUTE 03/06/18 05/09/18 Rx .COMPLEX #74 ea dexamethasone [Decadron] 40 mg PO DIRECTED 05/09/18 05/09/18 History turmeric-turmeric root extract 450 mg PO DAILY 05/09/18 05/09/18 History Patient History Medical History Thrombocytopenia (Chronic) Metastatic breast cancer (Chronic) CKD (chronic kidney disease), stage III (Chronic) ATN (acute tubular necrosis) (Resolved) DM type 2 (diabetes mellitus, type 2) (Chronic) Hyperlipidemia (Chronic) Irritable bowel syndrome (Chronic) Rheumatoid arthritis (Chronic) Osteoarthritis (Chronic) Hypertension (Chronic) Breast cancer metastasized to bone (Inactive) Chronic kidney disease (Inactive) Rheumatoid arthritis (Inactive) Surgical History History of hernia repair (Chronic) Family History Mother Stroke Social History Current Living Situation: Spouse Other Information That Helps Us Care for You: No Feels Safe at Home: Yes Smoking Status: Never smoker Do You Dip or Chew Tobacco: No Second Hand Exposure: No Tobacco Cessation Education Requested by Patient: No Hx Alcohol Use: No Hx Substance Use: No Beliefs That Will Affect Care: None Communication Ability: Effective Physical Exam 2 Vital Signs (Past 24 Hours): Last Vital Signs Temp 35.1 C L 05/09/18 16:00 Pulse 54 L 05/09/18 16:00 Resp 24 05/09/18 16:00 BP 133/72 05/09/18 16:00 Pulse Ox 99 05/09/18 16:00 On exam: - Currently intubated, hemodynamically stable,. - HEENT: no icterus, mild pallor noted, - Neck: No palpable cervical lymphadenopathy. Has left internal jugular venous access line. - Abdomen: soft, nontender, no hepatomegaly, no splenomegaly. - No focal neuro deficit. - Extremities: no finger clubbing, bilateral leg edema present.. Results & Data Laboratory Results - WBC 7600, H&H of 10.5/37.2, Platelet count of 27,000 on admission - Repeat platelet count in the afternoon > 31,000. - BUN/creatinine: 69/1.7 - Troponin level 3.1 Diagnostic Findings Bilateral lower extremity doppler evaluation (05/09/2018) - DVT identified in both legs. CT chest with PE protocol (05/09/2018) - No evidence of [place] embolism, bilateral lower lobe atelectatic changes/ consolidation noted. - Bony metastatic noted. CT scan of the abdomen and pelvis (05/09/2018) - Bony metastatic disease - Colonic diverticulosis, no intra-abdominal lymphadenopathy or liver lesions noted. _ (1) DVT of lower extremity, bilateral Affected thrombotic vein of extremity: femoral Chronicity: acute Qualified Code(s): I82.413 - Acute embolism and thrombosis of femoral vein, bilateral
--- NOTE | 2018-05-09 17:17 | Critical Care Consultation ---
Date of Consultation May 09, 2018 Assessment & Plan (1) Acute respiratory failure with hypoxia and hypercapnia: Impression: 1. Acute on chronic hypercapnic respiratory failure. 2. Morbid obesity, currently intubated. 3. Bilateral atelectasis contributing to the above. 4. 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 5. Diabetes mellitus with hyperglycemia, controlled with insulin drip. 6. Breast cancer with metastasis to the bony structures. 7. Hypercalcemia treated with Xgeva as outpatient. 8. Chronic kidney disease, worsening for the past 2 months. 9. Right ventricular failure with severe pulmonary hypertension, not estimated on the echo. 10. History of rheumatoid arthritis. 11. Bradycardia, could be iatrogenic secondary to sedation, however is most likely related to severely dilated RV. 12. Bilateral DVT involving femoral and iliac veins. Age of these DVT is indeterminant. Plan: 1. Continue with ventilator management. 2. Propofol drip for sedation. 3. Start the patient on dobutamine to support the right ventricular failure. 4. Norepinephrine for blood pressure support, in fact the blood pressure went up with dobutamine instead of going down due to improvement in the cardiac output. 5. Although the CAT scan of the chest did not show PE, the dilation in the RV could represent chronic PE which VQ scan would be the ultimate study for it. 6. Continue vap bundle. 7. Place an A-line. 8. Bronchoscopy was done, mucoid impaction noted in the subsegment of the right lower lobe and left lower lobe, sent for culture. 9. Continue broad-spectrum antibiotic, if there is no growth from the bronchoscopy specimen, antibiotics can be changed to target skin ulcers rather than pulmonary source. 10. Ventilator adjustment due to respiratory acidosis. 11. A.m. ABG. 12. Start the patient on heparin drip despite the thrombocytopenia, and ITP, platelets count should be adequate for this patient. Patient does not have a history of hit. 13. Renal consult to Dr. Hicks, family requested. 14. Vascular consult to Dr. Cobb for IVC filter. Appreciated. 15. Ultrasound of the lower extremities was repeated, the report seems comparable to the study done a few hours earlier. 16. Start the patient on heparin drip for DVT. Discussed with Dr. Cobb, agreed to it. 17. Glucose control with insulin drip, appreciate Dana Mcclure, PhD input in that regard. 18. Change IV fluid to 75 mL an hour of normal saline only. It will help her RV failure but I do not want to hyperextend the RV that is already been dilated. 19. Daily labs. 20. GI prophylaxis. 21. Discussed with the in details at the bedside, agreed to the above, patient remains full code. Discussed with the staff in details, critical care time spent with the patient was 60 minutes excluding procedure time. History of Present Illness Reason for Consultation: coma And acute respiratory failure Requesting Physician: Dr. Tamayo Attending Physician: Guy Hoyt MD History of Present Illness Dear Dr. Tamayo: Thank you for the kind referral Mrs. Kimble to critical care service. This is a 62-year-old female with history of morbid obesity, diabetes, diagnosed with metastatic breast cancer in November 2017, treated with Arimidex and Xgeva for hyperglycemia. The patient had also diagnosis of ITP, was treated with Decadron as an outpatient. Recently the patient was noted to have bilateral DVT and started on Eliquis. Which was stopped later. The patient presented 24 hours ago with altered mental status and obtundation, apparently she was DNR but it was revoked, the patient was intubated in the field and brought to the emergency room for further management. The patient was found to be hyperglycemic and started also on insulin. Patient was admitted to the ICU with acute respiratory failure. Her workup including head CT which did not show any intracranial catastrophe, chest CT which showed bilateral infiltrate with atelectasis and mucoid impaction , abdominal CT which did not reveal any catastrophe. The patient labs were noted for acute on chronic renal failure, the patient BUN and creatinine has been higher than her baseline. She did have an echocardiogram which revealed dilated RV. PA pressure was difficult to assess. Repeat ultrasound of the lower extremity showed DVT. Cannot determine the age of the bilateral clots. Review of system was not obtainable, information is obtained from the who was at the bedside. The patient lives with her no children, and according to the , she has been having difficulty ambulating due to lower extremity ulceration with diabetic foot. No fever or constitutional symptoms reported no nausea or vomiting. No diarrhea no abdominal pain. No chest pain. She has not been feeling short of breath. The rest of review of system was not obtainable. The patient is non-smoker, no secondhand exposure to smoking, lives with her . Allergies Allergy/AdvReac Type Severity Reaction Status Date / Time gabapentin AdvReac Hallucinati Verified 05/09/18 03:34 ng Home Medications Home Medications Medication Instructions Recorded Confirmed Type anastrozole 1 mg PO DAILY 03/05/18 05/09/18 History atenolol 50 mg PO BID 03/05/18 05/09/18 History cholecalciferol (vitamin D3) 2,000 unit PO DAILY 03/05/18 05/09/18 History [Vitamin D3] fexofenadine [Rocio Allergy] 180 mg PO DAILY 03/05/18 05/09/18 History insulin aspart U-100 0 units SUBCUT AC 03/05/18 05/09/18 History insulin glargine [Lantus U-100 22 unit SUBCUT QPM 03/05/18 05/09/18 History Insulin] lorazepam 1 mg PO BID PRN 03/05/18 05/09/18 History oxycodone 5 - 10 mg PO Q6H PRN 03/05/18 05/09/18 History tizanidine 4 mg PO BID 03/05/18 05/09/18 History apixaban [Eliquis] See Label Instructions .ROUTE 03/06/18 05/09/18 Rx .COMPLEX #74 ea dexamethasone [Decadron] 40 mg PO DIRECTED 05/09/18 05/09/18 History turmeric-turmeric root extract 450 mg PO DAILY 05/09/18 05/09/18 History Patient History Medical History Thrombocytopenia (Chronic) Metastatic breast cancer (Chronic) CKD (chronic kidney disease), stage III (Chronic) ATN (acute tubular necrosis) (Resolved) DM type 2 (diabetes mellitus, type 2) (Chronic) Hyperlipidemia (Chronic) Irritable bowel syndrome (Chronic) Rheumatoid arthritis (Chronic) Osteoarthritis (Chronic) Hypertension (Chronic) Breast cancer metastasized to bone (Inactive) Chronic kidney disease (Inactive) Rheumatoid arthritis (Inactive) Surgical History History of hernia repair (Chronic) Family History Mother Stroke Social History Current Living Situation: Spouse Other Information That Helps Us Care for You: No Feels Safe at Home: Yes Smoking Status: Never smoker Do You Dip or Chew Tobacco: No Second Hand Exposure: No Tobacco Cessation Education Requested by Patient: No Hx Alcohol Use: No Hx Substance Use: No Beliefs That Will Affect Care: None Communication Ability: Effective Review of Systems Review of system was not obtainable and very limited obtained only from the . Unremarkable except for the above. Physical Exam 2 Vital Signs (Past 24 Hours): Last Vital Signs Temp 35.1 C L 05/09/18 16:00 Pulse 54 L 05/09/18 16:00 Resp 24 05/09/18 16:00 BP 133/72 05/09/18 16:00 Pulse Ox 99 05/09/18 16:00 Physical Exam: The patient is morbidly obese, currently intubated and sedated , does not appear to be in any distress, S1-S2 regular rate and rhythm, bradycardic, blood pressure initially was in the range of 90 responded to dobutamine and currently back up in the range of 180 systolic. Lungs with distant breath sounds, abdomen obese but benign, edema in the periphery. Bilateral skin ulceration noted and surgically wrapped on the left. Neurologically difficult to assess. Pupils are equally reactive. Results & Data Laboratory Results Labs were reviewed including CBC which showed normal leukocytes, platelet count of 27 and down from 63 in February 2018, currently at 31. PTT is 21 and INR is 1.3. ABG of 7.2 2//76/28. CO2 of 25 and BUN/creatinine 69 and 1.74. Glucose in the range of 200. Diagnostic Findings All imaging has been reviewed as mentioned above in the first section.
--- NOTE | 2018-05-09 17:33 | Procedure Note ---
Procedure Note Date of Service May 09, 2018 Note Bronchoscopy was done at the bedside in room 4, indication is bilateral atelectasis in the lower lobes, the patient was already sedated with propofol, monitored in the ICU with ICU style of monitoring, consent obtained from the at the bedside, risk and benefit of the procedure explained in details and agreed to the procedure. The bronchoscope passed through the blue adapter through #7-1/2 ET tube. The patient did not require lidocaine or escalation of sedation. The was present throughout the entire procedure observing, findings as follows: 1. The tip of the ET tube was 3 cm above the kevin. 2. Multiple areas of submucosal hemorrhage was noted. 3. Moderate amount of secretions in the subsegment of the right lower lobe as well as left lower lobe noted. 4. Total of 40 mL of bronchial washes was used and suctioned completely, specimen was sent from the right lower lobe for cultures and Gram stain. 5. Tolerated the procedure very well no immediate complication. Thank you for all involved in the assistance.
--- NOTE | 2018-05-09 17:34 | Procedure Note ---
Procedure Note Date of Service May 09, 2018 Note A line was placed in the right radial area, due to the hypotension, using Seldinger technique, under strict sterile field, the skin was prepped with chlorhexidine, one attempt, the line was placed and secured with one suture, connected to the transducer, a waves were noted on the monitor, no immediate complication, the line was covered with surgical dressing. Tolerated very well. Capillary filling was normal in the hand and fingers post procedure.
[2018-05-09 19:49] LABS: Partial Thromboplastin Ratio 1.8
[2018-05-09 19:53] LABS: BUN Creatinine Ratio 41.4 (10-20); Calcium 8.3 mg/dl (8.5-10.1); Creatinine Clr Calc Pharmacy 58.1 ml/min; Est GFR (African American) 40.5; Potassium 5.2 mmol/L (3.5-5.1)
[2018-05-09 19:59] LABS: Partial Thromboplastin Time 47.1 Seconds (21.0-31.0)
[2018-05-09 20:05] LABS: Troponin I 2.46 ng/ml (0-0.045)
[2018-05-09] MEDS: MICONAZOLE NITRATE POWDER 43 GM EXT SCH (20:56)
[2018-05-10 00:58] LABS: Calcium 8.3 mg/dl (8.5-10.1); Creatinine Clr Calc Pharmacy 58.5 ml/min; Est GFR (African American) 41.2; Est GFR (Non-African American) 35.5; Potassium 5.1 mmol/L (3.5-5.1)
[2018-05-10 01:03] LABS: Troponin I 2.3 ng/ml (0-0.045)
[2018-05-10] MEDS: PROPOFOL 1,000 MG/100 ML VIAL IV SCH ×2 (01:30→07:04)
[2018-05-10] MEDS: HEPARIN STANDARD DEXTROSE 25,000 UNITS/500 ML IV SCH ×2 (03:42→16:52)
[2018-05-10] MEDS: INSULIN REGULAR 250 UNITS in SODIUM CHLORIDE 0.9% 247.5 ML IV SCH (03:58)
[2018-05-10] MEDS: PIPERACILLIN/TAZOBACTAM 4.5 GM in DEXTROSE 5% 100 ML IV SCH ×3 (04:00→20:18)
[2018-05-10 04:53] LABS: BUN Creatinine Ratio 38.8 (10-20); Calcium 8.2 mg/dl (8.5-10.1); Creatinine Clr Calc Pharmacy 60.1 ml/min; Est GFR (African American) 42.5; Est GFR (Non-African American) 36.7; Magnesium 1.8 mg/dl (1.8-2.4); Potassium 5.2 mmol/L (3.5-5.1)
[2018-05-10 04:57] LABS: Partial Thromboplastin Ratio 2.2
[2018-05-10 05:01] LABS: Partial Thromboplastin Time 57.6 Seconds (21.0-31.0)
[2018-05-10] MEDS: NOREPINEPHRINE BIT INJ 8 MG in DEXTROSE 5% 500 ML IV SCH (05:05)
[2018-05-10 05:27] LABS: Hematocrit (blood only) 36.2 % (37-47); Hemoglobin 10.7 g/dL (12.0-16.0); Mean Corpuscular Hgb Conc 29.6 g/dL (32-36); Mean Corpuscular Volume 81.2 fL (80-100); Platelet Count 55 K/uL (130-400); RDW Coefficient of Variation 17.6 % (11.5-14.5); RDW Standard Deviation 51.6 fL (36.4-46.3); Red Blood Count 4.46 M/uL (4.2-5.4); White Blood Count 8.45 K/uL (4.8-10.8)
[2018-05-10 05:27] LABS: iSTAT Arterial Blood Gas HCO3 26 meg/L (19-24); iSTAT Carbon Dioxide 27 mEq/l (24-31); iSTAT FiO2 50 %
[2018-05-10 05:29] LABS: Hypochromasia Present; Immature Granulocytes # (auto) 0.03 K/uL (0.00-0.02); Immature Granulocytes % (auto) 0.4 %; Lymphocytes # (auto) 0.47 K/uL (1.2-3.4); Lymphocytes % (auto) 5.6 %; Monocytes # (auto) 0.17 K/uL (0.11-0.59); Neutrophils # (auto) 7.78 K/uL (1.4-6.5); Polychromasia 1+
[2018-05-10 05:49] LABS: Estimated Average Glucose 252 mg/dl
--- NOTE | 2018-05-10 07:37 | Pharmacy Report ---
Pharmacy Glycemic Short Note 2 - Date of Service May 10, 2018 - Glycemic Short BSG Results (Last 24 hours): 05/09/18 05/09/18 05/09/18 07:31 08:33 09:28 Glucose POC Glucose 326 H 359 H* 382 H* 05/09/18 05/09/18 05/09/18 10:42 11:32 12:14 Glucose 216 H POC Glucose 334 H 201 H 05/09/18 05/09/18 05/09/18 12:40 13:41 14:48 Glucose POC Glucose 193 H 212 H 172 H 05/09/18 05/09/18 05/09/18 15:38 16:56 17:44 Glucose POC Glucose 206 H 174 H 167 H 05/09/18 05/09/18 05/09/18 18:38 19:11 20:59 Glucose 195 H POC Glucose 167 H 196 H 05/09/18 05/10/18 05/10/18 22:53 00:18 00:44 Glucose 182 H POC Glucose 173 H 162 H 05/10/18 05/10/18 05/10/18 02:47 04:21 04:59 Glucose 174 H POC Glucose 151 H 160 H Outpatient Anti-diabetic Regimen: * Lantus 22 units SC qPM * Insulin aspart SC AC * A1c = 7.5 % on 03/05/18 The patient is currently receiving: * Insulin drip @ 6.5 units/hr Risk Factors for Insulin Resistance: * Steroids: dexamethasone 4 mg IV BID * Infection: ?PNA on Zosyn * Pressors: dobutamine, norepinephrine * Diet: NPO * Mechanical Ventilation: YES Assessment & Plan: ASSESSMENT: * 62 yo F admitted unresponsive and intubated, possibly 2nd glycemic crisis. Patient not in DKA (B-OH butyric acid and anion gap wnl) although acidosis noted , likely 2nd respiratory acidosis. HHS a possibility 2nd high BSG >500 mg/dL, osmolality >320, elevated BUN/SCr ratio, and noted both decreased appetite and diarrhea - increasing risk of and data supporting possibly of profound dehydration caused by HHS * Discussed possible need for additional fluid resuscitation with liberal arts and humanities chair ( Dr. Henderson) on 05/09/18 as patient had only received 2L bolus. He will consider , but also is hesitant to be aggressive 2nd significant right ventricle dilation , still at this time requiring dobutamine * Possible surgical intervention today with Dr. Cobb for IVC filter 2nd significant DVTs noted in both legs * Will continue insulin drip at this time 2nd significant insulin requirement ( 156 units/day assuming constant rate) in addition to significant stressors and possible surgical intervention in a critically ill patient * OK to decrease goal range slightly. Will decrease slowly as possible HHS may not have yet resolved 2nd limited ability to fluid resuscitate. Plan to decrease again later today PLAN FOR INPATIENT GLYCEMIC CONTROL: * IV insulin infusion per severe stress protocol * Goal Range 150 - 250 mg/dL for now. OK to decrease goal range to 140-200 mg/ dL tonight * In the critical care setting, continuous IV insulin infusion has been shown to be the best method for achieving glycemic targets.
--- NOTE | 2018-05-10 07:52 | Hospitalist Progress Note ---
Date of Service May 10, 2018 Assessment & Plan (1) Acute respiratory failure with hypoxia and hypercapnia: Acute on chronic hypoxic and hypercapnic respiratory failure. Intubated on vent. No overt pulmonary edema on chest x-ray. No definite pulmonary infiltrates. PE ruled out by CTA. Need to review pulmonary history. May have obesity hypoventilation syndrome, sleep apnea, obstructive airway disease. Vent management / weaning per [facility]. (2) Acute on chronic right heart failure: Echo showed dilated right ventricle with reduced EF. Acute PE ruled out by CTA. (3) Elevated troponin I level: Serum troponin as high as Cardiology consulted. No left ventricular segmental wall motion abnormalities on echo. Elevated troponin could be secondary to respiratory failure or right-sided heart failure. (4) New onset right bundle branch block (RBBB): Attributed to RV strain. (5) DVT of lower extremity, bilateral: Prior history of DVT lower extremities. Had been treated with apixaban, but it was discontinued because of thrombocytopenia. Venous duplex 05/09/18 demonstrated extensive DVT in bilateral lower extremities , including proximal veins. Receiving IV heparin. IVC filter under consideration. (6) Acute kidney injury: CKD III with baseline creatinine of 0.89 on 03/06/18. Creatinine at time of admission 2.06. Acute kidney injury, probably due to respiratory failure and possible other contributing factors. Creatinine today = 1.50. (7) CKD (chronic kidney disease), stage III: As noted above. (8) Altered mental status: CT head without acute findings. Probable encephalopathy secondary to respiratory failure. Now more alert and following commands. (9) Hypertension: Managed with atenolol at home. BP's low in ED. Follow and titrate Rx. (10) DM type 2 (diabetes mellitus, type 2): Managed with insulin at home. Presented with random glucose of 469. Underlying physiologic stressors. Rule out infection. Need to clarify recent steroid use. Hgb A1C = 10.4. Managed with insulin infusion per protocol. Blood glucose this morning = 153. (11) Morbid obesity: Wt 145 kg. BMI 51.6. AHA diet when able to resume oral nutrition. 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 Platelet count at time of admission 27,000. Hematology consulted. Platelet count today = 55,000. (13) Metastatic breast cancer: Invasive ductal carcinoma right breast with skeletal mets and hypercalcemia. Management per Heme / Onc. (14) DVT prophylaxis: Management of acute DVT as discussed above. (15) Discharge planning issues: Critically ill. Discharge disposition to be determined. Primary care follow-up with Dr. Goodwin. Subjective Recheck for multiple problems. Patient seen in her room around 0800. Admitted yesterday morning with altered mental status, respiratory failure, and other problems. Remains intubated. Awake, following commands. Undergoing CPAP/PS trial. Denies any pain. Physical Exam 2 Vital Signs (Past 24 Hours): Last Vital Signs Temp 36.6 C 05/09/18 20:00 Pulse 66 05/10/18 07:00 Resp 27 H 05/10/18 05:28 BP 125/63 05/10/18 07:00 Pulse Ox 95 05/10/18 07:00 Constitutional: + morbidly obese and + mechanically ventilated; no acute distress Eyes: + anicteric sclerae ENMT: Mouth: + oropharynx abnormality (oral ETT, oral GT) Neck: left IJ cath Respiratory: no respiratory distress Auscultation: + rhonchi (few) Cardiovascular: Rate/Rhythm: regular rate and regular rhythm Heart Sounds: no gallop and no murmur Vessels: + JVD Extremities: + edema (2+ pretibial ) Gastrointestinal (Abdomen): Percussion/Palpation: abdomen soft; abdomen nontender Musculoskeletal: Extremities: + lower leg abnormality (waffle boots applied) Skin: + rash (moderate erythema bilat legs) left leg bandaged Neurologic: awake, follows commands Genitourinary: + abnormal external appearance (Ta cath) Results & Data Laboratory Results Laboratory Results - last 24 hr 05/09/18 05/09/18 05/09/18 03:20 06:20 07:49 WBC RBC Hgb Hct MCV MCH MCHC RDW Std Deviation RDW Coeff of Flori Plt Count Immature Gran % (Auto) Neut % (Auto) Lymph % (Auto) Benton % (Auto) Eos % (Auto) Baso % (Auto) Immature Gran # (Auto) Neut # (Auto) Lymph # (Auto) Benton # (Auto) Eos # (Auto) Baso # (Auto) Absolute Nucleated RBC Nucleated RBC % (auto) Platelet Estimate Polychromasia Hypochromasia APTT PTT Ratio Sample Site R Radial POC pH 7.22 L POC pCO2 68 H POC pO2 76 L POC HCO3 28 H POC Total CO2 30 POC Base Excess 0.0 POC ABG O2 Sat 92.0 Robert Test Pass O2 Delivery Device Ventilator POC O2 Rate 20 Minute Ventilation 10 POC FiO2 60 Tidal Volume 500 PEEP 5 Sodium Potassium Chloride Carbon Dioxide Anion Gap BUN Creatinine Est Cr Clr Drug Dosing Est GFR ( Amer) Est GFR (Non-Af Amer) BUN/Creatinine Ratio Glucose POC Glucose Estimat Average Glucose Hemoglobin A1c Calcium Phosphorus Magnesium Troponin I Nasal Screen MRSA (PCR) Negative Hepatitis C Ab Screen Neg 05/09/18 05/09/18 05/09/18 08:33 09:28 10:42 WBC RBC Hgb Hct MCV MCH MCHC RDW Std Deviation RDW Coeff of Lfori Plt Count Immature Gran % (Auto) Neut % (Auto) Lymph % (Auto) Benton % (Auto) Eos % (Auto) Baso % (Auto) Immature Gran # (Auto) Neut # (Auto) Lymph # (Auto) Benton # (Auto) Eos # (Auto) Baso # (Auto) Absolute Nucleated RBC Nucleated RBC % (auto) Platelet Estimate Polychromasia Hypochromasia APTT PTT Ratio Sample Site POC pH POC pCO2 POC pO2 POC HCO3 POC Total CO2 POC Base Excess POC ABG O2 Sat Robert Test O2 Delivery Device POC O2 Rate Minute Ventilation POC FiO2 Tidal Volume PEEP Sodium Potassium Chloride Carbon Dioxide Anion Gap BUN Creatinine Est Cr Clr Drug Dosing Est GFR ( Amer) Est GFR (Non-Af Amer) BUN/Creatinine Ratio Glucose POC Glucose 359 H* 382 H* 334 H Estimat Average Glucose Hemoglobin A1c Calcium Phosphorus Magnesium Troponin I Nasal Screen MRSA (PCR) Hepatitis C Ab Screen 05/09/18 05/09/18 05/09/18 11:32 12:14 12:40 WBC RBC Hgb Hct MCV MCH MCHC RDW Std Deviation RDW Coeff of Flori Plt Count Immature Gran % (Auto) Neut % (Auto) Lymph % (Auto) Benton % (Auto) Eos % (Auto) Baso % (Auto) Immature Gran # (Auto) Neut # (Auto) Lymph # (Auto) Benton # (Auto) Eos # (Auto) Baso # (Auto) Absolute Nucleated RBC Nucleated RBC % (auto) Platelet Estimate Polychromasia Hypochromasia APTT PTT Ratio Sample Site POC pH POC pCO2 POC pO2 POC HCO3 POC Total CO2 POC Base Excess POC ABG O2 Sat Robert Test O2 Delivery Device POC O2 Rate Minute Ventilation POC FiO2 Tidal Volume PEEP Sodium 139 Potassium 5.0 Chloride 107 Carbon Dioxide 25 Anion Gap 7.0 BUN 69 H Creatinine 1.74 H Est Cr Clr Drug Dosing 52.4 Est GFR ( Amer) 35.8 Est GFR (Non-Af Amer) 30.9 BUN/Creatinine Ratio 39.4 H Glucose 216 H POC Glucose 201 H 193 H Estimat Average Glucose Hemoglobin A1c Calcium 8.7 Phosphorus Magnesium Troponin I 3.150 H* Nasal Screen MRSA (PCR) Hepatitis C Ab Screen 05/09/18 05/09/18 05/09/18 13:41 13:54 14:48 WBC 7.24 RBC 4.36 Hgb 10.8 L Hct 37.1 MCV 85.1 MCH 24.8 L MCHC 29.1 L RDW Std Deviation 55.2 H RDW Coeff of Flori 17.9 H Plt Count 31 L Immature Gran % (Auto) 0.4 Neut % (Auto) 86.4 Lymph % (Auto) 8.6 Benton % (Auto) 3.2 Eos % (Auto) 1.1 Baso % (Auto) 0.3 Immature Gran # (Auto) 0.03 H Neut # (Auto) 6.26 Lymph # (Auto) 0.62 L Benton # (Auto) 0.23 Eos # (Auto) 0.08 Baso # (Auto) 0.02 Absolute Nucleated RBC 0.07 H Nucleated RBC % (auto) 0.9 Platelet Estimate SIGNIFIC DECREASED Polychromasia 1+ Hypochromasia APTT PTT Ratio Sample Site POC pH POC pCO2 POC pO2 POC HCO3 POC Total CO2 POC Base Excess POC ABG O2 Sat Robert Test O2 Delivery Device POC O2 Rate Minute Ventilation POC FiO2 Tidal Volume PEEP Sodium Potassium Chloride Carbon Dioxide Anion Gap BUN Creatinine Est Cr Clr Drug Dosing Est GFR ( Amer) Est GFR (Non-Af Amer) BUN/Creatinine Ratio Glucose POC Glucose 212 H 172 H Estimat Average Glucose Hemoglobin A1c Calcium Phosphorus Magnesium Troponin I Nasal Screen MRSA (PCR) Hepatitis C Ab Screen 05/09/18 05/09/18 05/09/18 15:38 16:56 17:44 WBC RBC Hgb Hct MCV MCH MCHC RDW Std Deviation RDW Coeff of Flori Plt Count Immature Gran % (Auto) Neut % (Auto) Lymph % (Auto) Benton % (Auto) Eos % (Auto) Baso % (Auto) Immature Gran # (Auto) Neut # (Auto) Lymph # (Auto) Benton # (Auto) Eos # (Auto) Baso # (Auto) Absolute Nucleated RBC Nucleated RBC % (auto) Platelet Estimate Polychromasia Hypochromasia APTT PTT Ratio Sample Site POC pH POC pCO2 POC pO2 POC HCO3 POC Total CO2 POC Base Excess POC ABG O2 Sat Robert Test O2 Delivery Device POC O2 Rate Minute Ventilation POC FiO2 Tidal Volume PEEP Sodium Potassium Chloride Carbon Dioxide Anion Gap BUN Creatinine Est Cr Clr Drug Dosing Est GFR ( Amer) Est GFR (Non-Af Amer) BUN/Creatinine Ratio Glucose POC Glucose 206 H 174 H 167 H Estimat Average Glucose Hemoglobin A1c Calcium Phosphorus Magnesium Troponin I Nasal Screen MRSA (PCR) Hepatitis C Ab Screen 05/09/18 05/09/18 05/09/18 18:38 19:11 19:11 WBC RBC Hgb Hct MCV MCH MCHC RDW Std Deviation RDW Coeff of Flori Plt Count Immature Gran % (Auto) Neut % (Auto) Lymph % (Auto) Benton % (Auto) Eos % (Auto) Baso % (Auto) Immature Gran # (Auto) Neut # (Auto) Lymph # (Auto) Benton # (Auto) Eos # (Auto) Baso # (Auto) Absolute Nucleated RBC Nucleated RBC % (auto) Platelet Estimate Polychromasia Hypochromasia APTT 47.1 H* PTT Ratio 1.8 Sample Site POC pH POC pCO2 POC pO2 POC HCO3 POC Total CO2 POC Base Excess POC ABG O2 Sat Robert Test O2 Delivery Device POC O2 Rate Minute Ventilation POC FiO2 Tidal Volume PEEP Sodium 138 Potassium 5.2 H Chloride 109 H Carbon Dioxide 28 Anion Gap 1.0 L BUN 65 H Creatinine 1.57 H Est Cr Clr Drug Dosing 58.1 Est GFR ( Amer) 40.5 Est GFR (Non-Af Amer) 35.0 BUN/Creatinine Ratio 41.4 H Glucose 195 H POC Glucose 167 H Estimat Average Glucose Hemoglobin A1c Calcium 8.3 L Phosphorus Magnesium Troponin I 2.460 H* Nasal Screen MRSA (PCR) Hepatitis C Ab Screen 05/09/18 05/09/18 05/10/18 20:59 22:53 00:18 WBC RBC Hgb Hct MCV MCH MCHC RDW Std Deviation RDW Coeff of Flori Plt Count Immature Gran % (Auto) Neut % (Auto) Lymph % (Auto) Benton % (Auto) Eos % (Auto) Baso % (Auto) Immature Gran # (Auto) Neut # (Auto) Lymph # (Auto) Benton # (Auto) Eos # (Auto) Baso # (Auto) Absolute Nucleated RBC Nucleated RBC % (auto) Platelet Estimate Polychromasia Hypochromasia APTT PTT Ratio Sample Site POC pH POC pCO2 POC pO2 POC HCO3 POC Total CO2 POC Base Excess POC ABG O2 Sat Robert Test O2 Delivery Device POC O2 Rate Minute Ventilation POC FiO2 Tidal Volume PEEP Sodium 139 Potassium 5.1 Chloride 109 H Carbon Dioxide 29 Anion Gap 1.0 L BUN 62 H Creatinine 1.54 H Est Cr Clr Drug Dosing 58.5 Est GFR ( Amer) 41.2 Est GFR (Non-Af Amer) 35.5 BUN/Creatinine Ratio 40.0 H Glucose 182 H POC Glucose 196 H 173 H Estimat Average Glucose Hemoglobin A1c Calcium 8.3 L Phosphorus Magnesium Troponin I 2.300 H* Nasal Screen MRSA (PCR) Hepatitis C Ab Screen 05/10/18 05/10/18 05/10/18 00:44 02:47 04:21 WBC 8.45 RBC 4.46 Hgb 10.7 L Hct 36.2 L MCV 81.2 MCH 24.0 L MCHC 29.6 L RDW Std Deviation 51.6 H RDW Coeff of Flori 17.6 H Plt Count 55 L D Immature Gran % (Auto) 0.4 Neut % (Auto) 92.0 Lymph % (Auto) 5.6 Benton % (Auto) 2.0 Eos % (Auto) 0.0 Baso % (Auto) 0.0 Immature Gran # (Auto) 0.03 H Neut # (Auto) 7.78 H Lymph # (Auto) 0.47 L Benton # (Auto) 0.17 Eos # (Auto) 0.00 Baso # (Auto) 0.00 Absolute Nucleated RBC Nucleated RBC % (auto) Platelet Estimate Decreased Polychromasia 1+ Hypochromasia Present APTT PTT Ratio Sample Site POC pH POC pCO2 POC pO2 POC HCO3 POC Total CO2 POC Base Excess POC ABG O2 Sat Robert Test O2 Delivery Device POC O2 Rate Minute Ventilation POC FiO2 Tidal Volume PEEP Sodium Potassium Chloride Carbon Dioxide Anion Gap BUN Creatinine Est Cr Clr Drug Dosing Est GFR ( Amer) Est GFR (Non-Af Amer) BUN/Creatinine Ratio Glucose POC Glucose 162 H 151 H Estimat Average Glucose Hemoglobin A1c Calcium Phosphorus Magnesium Troponin I Nasal Screen MRSA (PCR) Hepatitis C Ab Screen 05/10/18 05/10/18 05/10/18 04:21 04:21 04:21 WBC RBC Hgb Hct MCV MCH MCHC RDW Std Deviation RDW Coeff of Flori Plt Count Immature Gran % (Auto) Neut % (Auto) Lymph % (Auto) Benton % (Auto) Eos % (Auto) Baso % (Auto) Immature Gran # (Auto) Neut # (Auto) Lymph # (Auto) Benton # (Auto) Eos # (Auto) Baso # (Auto) Absolute Nucleated RBC Nucleated RBC % (auto) Platelet Estimate Polychromasia Hypochromasia APTT 57.6 H* PTT Ratio 2.2 Sample Site POC pH POC pCO2 POC pO2 POC HCO3 POC Total CO2 POC Base Excess POC ABG O2 Sat Robert Test O2 Delivery Device POC O2 Rate Minute Ventilation POC FiO2 Tidal Volume PEEP Sodium 138 Potassium 5.2 H Chloride 108 H Carbon Dioxide 27 Anion Gap 3.0 BUN 58 H Creatinine 1.50 H Est Cr Clr Drug Dosing 60.1 Est GFR ( Amer) 42.5 Est GFR (Non-Af Amer) 36.7 BUN/Creatinine Ratio 38.8 H Glucose 174 H POC Glucose Estimat Average Glucose 252 Hemoglobin A1c 10.4 H Calcium 8.2 L Phosphorus 3.0 Magnesium 1.8 Troponin I Nasal Screen MRSA (PCR) Hepatitis C Ab Screen 05/10/18 05/10/18 04:59 05:12 WBC RBC Hgb Hct MCV MCH MCHC RDW Std Deviation RDW Coeff of Flori Plt Count Immature Gran % (Auto) Neut % (Auto) Lymph % (Auto) Benton % (Auto) Eos % (Auto) Baso % (Auto) Immature Gran # (Auto) Neut # (Auto) Lymph # (Auto) Benton # (Auto) Eos # (Auto) Baso # (Auto) Absolute Nucleated RBC Nucleated RBC % (auto) Platelet Estimate Polychromasia Hypochromasia APTT PTT Ratio Sample Site Art Line POC pH 7.40 POC pCO2 41 POC pO2 74 L POC HCO3 26 H POC Total CO2 27 POC Base Excess 1.0 POC ABG O2 Sat 95.0 Robert Test NA O2 Delivery Device Ventilator POC O2 Rate 24 Minute Ventilation 12.0 POC FiO2 50 Tidal Volume 500 PEEP 5 Sodium Potassium Chloride Carbon Dioxide Anion Gap BUN Creatinine Est Cr Clr Drug Dosing Est GFR ( Amer) Est GFR (Non-Af Amer) BUN/Creatinine Ratio Glucose POC Glucose 160 H Estimat Average Glucose Hemoglobin A1c Calcium Phosphorus Magnesium Troponin I Nasal Screen MRSA (PCR) Hepatitis C Ab Screen _ (1) DVT of lower extremity, bilateral Affected thrombotic vein of extremity: femoral Chronicity: acute Qualified Code(s): I82.413 - Acute embolism and thrombosis of femoral vein, bilateral (2) Altered mental status Altered mental status type: unspecified Coma depth: Coma timing: Qualified Code(s): R41.82 - Altered mental status, unspecified
--- NOTE | 2018-05-10 08:05 | Cardiology Progress Note ---
Date of Service May 10, 2018 Assessment & Plan (1) Acute respiratory failure with hypoxia and hypercapnia: Patient currently on CPAP trial. CO2 corrected with ventilator with continued oxygen requirement of 50% FIO2. Cultures via bronchoalveolar lavage pending at this time. Blood cultures negative times 24 hours. Empiric antibiotic therapy continued at this time. Hypotension has resolved with discontinuation of propofol. Patient currently hypertensive via arterial line. (2) Acute on chronic right heart failure: Fluid balance remains positive with 700 cc urine output overnight and 200 cc over the past 2 hours. Urine output improved with intravenous dobutamine infusion. Patient is receiving significant intravenous fluids with multiple infusions at this time. Renal function improving. Recommend begin diuretic therapy, Lasix 40 mg IV every 12. Continue to follow fluid balance, GFR, electrolytes closely. Continue dobutamine for an additional 24 hours however, may reduce dosing to 2.5 mcg/h pending hemodynamic response to diuretic therapy. (3) Acute on chronic renal failure: Creatinine trending downward. Nephrology input appreciated. Assess BMP daily. (4) Elevated troponin I level: Secondary to hypoxic /hypercapnic respiratory failure in the setting of possible CAP, mucous plugging, and right-sided heart failure. No left ventricular regional myocardial wall motion abnormalities on echocardiogram. Troponin trending downward. Patient currently receiving intravenous anticoagulation for bilateral DVT. No evidence of PE per CTA of the chest. (5) New onset right bundle branch block (RBBB): Suspect secondary to right ventricular pressure/volume overload. (6) Altered mental status: Secondary to hypoxic and hypercapnic respiratory failure, hyperglycemia, possible pneumonia/mucous plugging. (7) Hyperglycemia: Continue insulin infusion. (8) DVT of lower extremity, bilateral: Hematology input appreciated. Continue intravenous heparin. Will discuss possible transition to Lovenox secondary to DVT in the presence of malignancy. (9) Thrombocytopenia: Did this morning. No overt signs of bleeding. Follow daily CBC. Subjective Patient seen and examined at the bedside. 700 cc urine output overnight. 200 cc over the past 2 hours. She is on a dobutamine infusion at 5 mcg/hr. awake on CPAP trial. Respiratory rate of 25. She is anxious. Denies pain. No change in peripheral or abdominal edema overnight. Hypertensive currently per arterial line. Troponins trending downward yesterday. Blood cultures negative times 24 hours. Cultures via bronchoalveolar lavage pending peer. PCO2 corrected via ventilator, however, continues to require 50% FiO2. No signs/ symptoms of GI/ blood loss. Hemoglobin stable. Creatinine trending downward. Patient denies pain however cannot offer additional history as she is intubated. No family present at bedside. Review of Systems Unobtainable due to endotracheal tube Physical Exam 2 Vital Signs (Past 24 Hours): Last Vital Signs Temp 36.6 C 05/09/18 20:00 Pulse 66 05/10/18 07:00 Resp 27 H 05/10/18 05:28 BP 125/63 05/10/18 07:00 Pulse Ox 95 05/10/18 07:00 Physical Exam: General: intubated, awake and anxious. NAD. Morbidly obese. HEENT: Normocephalic. Atraumatic. Conjunctiva pink, no scleral icterus. Neck: No carotid bruits, the carotid upstrokes are brisk. Unable to assess JVD secondary to body habitus. Heart: Regular, bradycardic, distant heart sounds. Normal S-1 and S-2 no S-3 or S-4 gallop. No murmurs or rub appreciated. PMI is not displaced. Lungs: Coarse breath sounds bilaterally. No rales or wheeze. Abdomen: Obese. 1-2+ pitting edema of pannus. Normal bowel sounds. Soft. Nontender. No masses or organomegaly. No abdominal bruits. Extremities: 2+ bilateral pretibial upper leg pitting edema. + Left pretibial ulcer. No clubbing, or cyanosis. Pulses: radial=2/4, posterior tibial=2/4. Neuro: Awake and agitated. Moves all extremities. _ (1) Altered mental status Altered mental status type: unspecified Coma depth: Coma timing: Qualified Code(s): R41.82 - Altered mental status, unspecified (2) DVT of lower extremity, bilateral Affected thrombotic vein of extremity: femoral Chronicity: acute Qualified Code(s): I82.413 - Acute embolism and thrombosis of femoral vein, bilateral
--- NOTE | 2018-05-10 08:56 | Communication Note ---
Date of Service: Adam ultrasound of the both lower extremity venous systems were done yesterday. The study is very limited study. However looking at the pictures compared to the previous study of February there does not seem to be a significant difference. The left leg has scattered flow through the femoral veins but there does not appear to be any venous distention. Right lower extremity basically appears to be unchanged from previous. On the CT abdomen pelvis I cannot appreciate any iliac thrombus noted. At this point I would continue anticoagulation. There is no indications for filter placement at the present time. Please call if needed. Thank you very much for letting us participate in the care of this patient.
[2018-05-10] MEDS ORDERED: FUROSEMIDE 60 MG in SYRINGE 0 ML IV ONE (09:00)
--- NOTE | 2018-05-10 09:01 | Nephrology Consultation ---
Date of Consultation May 10, 2018 Assessment & Plan (1) Acute on chronic renal failure: her baseline is hard to quantify w/ the changes in her health and fluid status recently. Had had a baseline 1.3-1.5 creatinine when I last saw her 11/2017 just as BRCA dx 'd; more recently has been 1.0-1.1 but this in status of 20 lb wt gain most of which is likely water; I suspect her baseline euvolemic renal function remains 1.3-1.5 creatinine. diuresing well w/ dobutamine and one lasix dose; fortunately not oliguric; mild hyperkalemia noted; glucose w/ acceptable control ; other chemistries acceptable for now -high risk for worsening renal failure given IV contrast, critical illness, obligate diuretics -monitor mag, calcium, phos, bmp bid -- ordered 1600 chemistries -started lasix 20 mg IV qid and will adjust dose based on vol status, labs Present on Admission?: Yes (2) Acute on chronic right heart failure: in setting of acute on chronic hypercapnic respiratory failure -appreciate cardiology, critical care recs; slight troponin bump noted -follow on dobutamine, lasix Present on Admission?: Yes (3) Metastatic breast cancer: w/ bony mets, hypercalcemia, chronic thrombocytopenia, and chronic volume overload, BL DVT Present on Admission?: Yes (4) Thrombocytopenia: Outpt plts range Present on Admission?: Yes (5) Hypertension: elevated on art line in 200s systolic; goal would be 150s systolic -lasix as above -agree w/ hydralazine and metoprolol as ordered -ensure pain is controlled/addressed Present on Admission?: Yes History of Present Illness Reason for Consultation: KARLIE Requesting Physician: Dr Henderson Attending Physician: Guy Hoyt MD History of Present Illness 63 y/o F whom I'm asked to see for KARLIE. PMH includes CKD 3, BRCA dx'd 11/2017 and w/ bony mets at that time, hypercalcemia managed w/ Xgeva monthly, rheumatoid arthritis and osteoarthritis, DM on insulin, HTN, obesity, DVT dx'd 02/2018, chronic thrombocytopenia possibly chronic ITP. In summer 2016, she did have [facility] admission w/ watery diarrhea, chronic nsaid use and had prerenal KARLEI and presenting creatinine 9.9, managed conservatively. Generally her creatinine had run 1.1-1.4 in early 2018; after BRCA dx, it dropped more to 1.0- 1.1 range, though on 05/01/18 was 1.4. Of note she gained about 20 lb as her creatinine trended down; had 2+ edema at 05/01/18 heme eval. She was admitted here for hyperglycemia (BG at home in 600s) w/ confusion, then LOC, and was intubated en route to hospital. in the ER d/t CA hx, acute respiratory failure she had CT c/a/p w/ IV contrast > no PE seen. She had recently been started on decadron for ITP. her plts at admission were 27; up to 55 this am. Hematology is following. NO DKA at admission; maintained on insulin gtt. currently Her presenting creatinine was 2.1; improved to 1.5 today>> has made 3.7 L urine today. She was found to have acute on chronic R heart failure >> managed on dobutamine gtt and intermittent lasix; had 60 mg IV today x 1. Pt found to have BL DVT of femoral/iliac veins, age indeterminate; vascular does not feel IVC filter indicated. She was extubated earlier today Allergies Allergy/AdvReac Type Severity Reaction Status Date / Time gabapentin AdvReac Hallucinati Verified 05/09/18 03:34 ng Home Medications Home Medications Medication Instructions Recorded Confirmed Type anastrozole 1 mg PO DAILY 03/05/18 05/09/18 History atenolol 50 mg PO BID 03/05/18 05/09/18 History cholecalciferol (vitamin D3) 2,000 unit PO DAILY 03/05/18 05/09/18 History [Vitamin D3] fexofenadine [Rocio Allergy] 180 mg PO DAILY 03/05/18 05/09/18 History insulin aspart U-100 0 units SUBCUT AC 03/05/18 05/09/18 History insulin glargine [Lantus U-100 22 unit SUBCUT QPM 03/05/18 05/09/18 History Insulin] lorazepam 1 mg PO BID PRN 03/05/18 05/09/18 History oxycodone 5 - 10 mg PO Q6H PRN 03/05/18 05/09/18 History tizanidine 4 mg PO BID 03/05/18 05/09/18 History apixaban [Eliquis] See Label Instructions .ROUTE 03/06/18 05/09/18 Rx .COMPLEX #74 ea dexamethasone [Decadron] 40 mg PO DIRECTED 05/09/18 05/09/18 History turmeric-turmeric root extract 450 mg PO DAILY 05/09/18 05/09/18 History Patient History Medical History Thrombocytopenia (Chronic) Metastatic breast cancer (Chronic) CKD (chronic kidney disease), stage III (Chronic) ATN (acute tubular necrosis) (Resolved) DM type 2 (diabetes mellitus, type 2) (Chronic) Hyperlipidemia (Chronic) Irritable bowel syndrome (Chronic) Rheumatoid arthritis (Chronic) Osteoarthritis (Chronic) Hypertension (Chronic) Breast cancer metastasized to bone (Inactive) Chronic kidney disease (Inactive) Rheumatoid arthritis (Inactive) Surgical History History of hernia repair (Chronic) Family History Mother Stroke Social History Current Living Situation: Spouse Other Information That Helps Us Care for You: No Feels Safe at Home: Yes Smoking Status: Never smoker Do You Dip or Chew Tobacco: No Second Hand Exposure: No Tobacco Cessation Education Requested by Patient: No Hx Alcohol Use: No Hx Substance Use: No Beliefs That Will Affect Care: None Communication Ability: Effective Review of Systems Constitutional: + body aches (T spine she states from mets), + fatigue and + weakness Eyes: no worsening vision Ear, Nose, Mouth, Throat: + dry mouth Respiratory: as per Subjective / HPI; no dyspnea Cardiovascular: as per Subjective / HPI and + edema; no chest pain and no syncope Gastrointestinal: no abdominal pain, no vomiting and no diarrhea/loose stools Genitourinary (Female): + urinary frequency and + urinary urgency; no dysuria Musculoskeletal: + joint pain and + myalgia Integumentary: + non-healing lesions (BLE, L >R from tight edema); no rash Neurologic: as per Subjective / HPI, + unsteadiness and + generalized weakness; no confusion (currently) Psychiatric: as per Subjective / HPI; no irritability and no anxiety Endocrine: + fatigue Hematologic / Lymphatic: + easy bleeding and + easy bruising Physical Exam 2 Vital Signs (Past 24 Hours): Last Vital Signs Temp 37.3 C 05/10/18 08:00 Pulse 69 05/10/18 08:30 Resp 22 05/10/18 08:30 BP 136/65 05/10/18 08:30 Pulse Ox 96 05/10/18 08:30 Results & Data Laboratory Results Abnormal lab results 05/09/18 05/09/18 05/09/18 Range/Units 09:28 10:42 11:32 Hgb (12.0-16.0) g/dL Hct (37-47) % MCH (25-34) pg MCHC (32-36) g/dL RDW Std Deviation (36.4-46.3) fL RDW Coeff of Flori (11.5-14.5) % Plt Count (130-400) K/uL Immature Gran # (Auto) (0.00-0.02) K/uL Neut # (Auto) (1.4-6.5) K/uL Lymph # (Auto) (1.2-3.4) K/uL Absolute Nucleated RBC (0-0) K/uL APTT (21.0-31.0) Seconds POC pO2 (80-95) mmHg POC HCO3 (19-24) julian/L Potassium (3.5-5.1) mmol/L Chloride (98-107) mmol/L Anion Gap (3-11) BUN (7-18) mg/dl Creatinine (0.6-1.2) mg/dl BUN/Creatinine Ratio (10-20) Glucose (70-99) mg/dl POC Glucose 382 H* 334 H 201 H (70-99) Hemoglobin A1c (4.5-5.6) % Calcium (8.5-10.1) mg/dl Troponin I (0-0.045) ng/ml 05/09/18 05/09/18 05/09/18 Range/Units 12:14 12:40 13:41 Hgb (12.0-16.0) g/dL Hct (37-47) % MCH (25-34) pg MCHC (32-36) g/dL RDW Std Deviation (36.4-46.3) fL RDW Coeff of Flori (11.5-14.5) % Plt Count (130-400) K/uL Immature Gran # (Auto) (0.00-0.02) K/uL Neut # (Auto) (1.4-6.5) K/uL Lymph # (Auto) (1.2-3.4) K/uL Absolute Nucleated RBC (0-0) K/uL APTT (21.0-31.0) Seconds POC pO2 (80-95) mmHg POC HCO3 (19-24) julian/L Potassium (3.5-5.1) mmol/L Chloride (98-107) mmol/L Anion Gap (3-11) BUN 69 H (7-18) mg/dl Creatinine 1.74 H (0.6-1.2) mg/dl BUN/Creatinine Ratio 39.4 H (10-20) Glucose 216 H (70-99) mg/dl POC Glucose 193 H 212 H (70-99) Hemoglobin A1c (4.5-5.6) % Calcium (8.5-10.1) mg/dl Troponin I 3.150 H* (0-0.045) ng/ml 05/09/18 05/09/18 05/09/18 Range/Units 13:54 14:48 15:38 Hgb 10.8 L (12.0-16.0) g/dL Hct (37-47) % MCH 24.8 L (25-34) pg MCHC 29.1 L (32-36) g/dL RDW Std Deviation 55.2 H (36.4-46.3) fL RDW Coeff of Flori 17.9 H (11.5-14.5) % Plt Count 31 L (130-400) K/uL Immature Gran # (Auto) 0.03 H (0.00-0.02) K/uL Neut # (Auto) (1.4-6.5) K/uL Lymph # (Auto) 0.62 L (1.2-3.4) K/uL Absolute Nucleated RBC 0.07 H (0-0) K/uL APTT (21.0-31.0) Seconds POC pO2 (80-95) mmHg POC HCO3 (19-24) julian/L Potassium (3.5-5.1) mmol/L Chloride (98-107) mmol/L Anion Gap (3-11) BUN (7-18) mg/dl Creatinine (0.6-1.2) mg/dl BUN/Creatinine Ratio (10-20) Glucose (70-99) mg/dl POC Glucose 172 H 206 H (70-99) Hemoglobin A1c (4.5-5.6) % Calcium (8.5-10.1) mg/dl Troponin I (0-0.045) ng/ml 05/09/18 05/09/18 05/09/18 Range/Units 16:56 17:44 18:38 Hgb (12.0-16.0) g/dL Hct (37-47) % MCH (25-34) pg MCHC (32-36) g/dL RDW Std Deviation (36.4-46.3) fL RDW Coeff of Flori (11.5-14.5) % Plt Count (130-400) K/uL Immature Gran # (Auto) (0.00-0.02) K/uL Neut # (Auto) (1.4-6.5) K/uL Lymph # (Auto) (1.2-3.4) K/uL Absolute Nucleated RBC (0-0) K/uL APTT (21.0-31.0) Seconds POC pO2 (80-95) mmHg POC HCO3 (19-24) julian/L Potassium (3.5-5.1) mmol/L Chloride (98-107) mmol/L Anion Gap (3-11) BUN (7-18) mg/dl Creatinine (0.6-1.2) mg/dl BUN/Creatinine Ratio (10-20) Glucose (70-99) mg/dl POC Glucose 174 H 167 H 167 H (70-99) Hemoglobin A1c (4.5-5.6) % Calcium (8.5-10.1) mg/dl Troponin I (0-0.045) ng/ml 05/09/18 05/09/18 05/09/18 Range/Units 19:11 19:11 20:59 Hgb (12.0-16.0) g/dL Hct (37-47) % MCH (25-34) pg MCHC (32-36) g/dL RDW Std Deviation (36.4-46.3) fL RDW Coeff of Flori (11.5-14.5) % Plt Count (130-400) K/uL Immature Gran # (Auto) (0.00-0.02) K/uL Neut # (Auto) (1.4-6.5) K/uL Lymph # (Auto) (1.2-3.4) K/uL Absolute Nucleated RBC (0-0) K/uL APTT 47.1 H* (21.0-31.0) Seconds POC pO2 (80-95) mmHg POC HCO3 (19-24) julian/L Potassium 5.2 H (3.5-5.1) mmol/L Chloride 109 H (98-107) mmol/L Anion Gap 1.0 L (3-11) BUN 65 H (7-18) mg/dl Creatinine 1.57 H (0.6-1.2) mg/dl BUN/Creatinine Ratio 41.4 H (10-20) Glucose 195 H (70-99) mg/dl POC Glucose 196 H (70-99) Hemoglobin A1c (4.5-5.6) % Calcium 8.3 L (8.5-10.1) mg/dl Troponin I 2.460 H* (0-0.045) ng/ml 05/09/18 05/10/18 05/10/18 Range/Units 22:53 00:18 00:44 Hgb (12.0-16.0) g/dL Hct (37-47) % MCH (25-34) pg MCHC (32-36) g/dL RDW Std Deviation (36.4-46.3) fL RDW Coeff of Flori (11.5-14.5) % Plt Count (130-400) K/uL Immature Gran # (Auto) (0.00-0.02) K/uL Neut # (Auto) (1.4-6.5) K/uL Lymph # (Auto) (1.2-3.4) K/uL Absolute Nucleated RBC (0-0) K/uL APTT (21.0-31.0) Seconds POC pO2 (80-95) mmHg POC HCO3 (19-24) julian/L Potassium (3.5-5.1) mmol/L Chloride 109 H (98-107) mmol/L Anion Gap 1.0 L (3-11) BUN 62 H (7-18) mg/dl Creatinine 1.54 H (0.6-1.2) mg/dl BUN/Creatinine Ratio 40.0 H (10-20) Glucose 182 H (70-99) mg/dl POC Glucose 173 H 162 H (70-99) Hemoglobin A1c (4.5-5.6) % Calcium 8.3 L (8.5-10.1) mg/dl Troponin I 2.300 H* (0-0.045) ng/ml 05/10/18 05/10/18 05/10/18 Range/Units 02:47 04:21 04:21 Hgb 10.7 L (12.0-16.0) g/dL Hct 36.2 L (37-47) % MCH 24.0 L (25-34) pg MCHC 29.6 L (32-36) g/dL RDW Std Deviation 51.6 H (36.4-46.3) fL RDW Coeff of Flori 17.6 H (11.5-14.5) % Plt Count 55 L D (130-400) K/uL Immature Gran # (Auto) 0.03 H (0.00-0.02) K/uL Neut # (Auto) 7.78 H (1.4-6.5) K/uL Lymph # (Auto) 0.47 L (1.2-3.4) K/uL Absolute Nucleated RBC (0-0) K/uL APTT (21.0-31.0) Seconds POC pO2 (80-95) mmHg POC HCO3 (19-24) julian/L Potassium 5.2 H (3.5-5.1) mmol/L Chloride 108 H (98-107) mmol/L Anion Gap (3-11) BUN 58 H (7-18) mg/dl Creatinine 1.50 H (0.6-1.2) mg/dl BUN/Creatinine Ratio 38.8 H (10-20) Glucose 174 H (70-99) mg/dl POC Glucose 151 H (70-99) Hemoglobin A1c (4.5-5.6) % Calcium 8.2 L (8.5-10.1) mg/dl Troponin I (0-0.045) ng/ml 05/10/18 05/10/18 05/10/18 Range/Units 04:21 04:21 04:59 Hgb (12.0-16.0) g/dL Hct (37-47) % MCH (25-34) pg MCHC (32-36) g/dL RDW Std Deviation (36.4-46.3) fL RDW Coeff of Flori (11.5-14.5) % Plt Count (130-400) K/uL Immature Gran # (Auto) (0.00-0.02) K/uL Neut # (Auto) (1.4-6.5) K/uL Lymph # (Auto) (1.2-3.4) K/uL Absolute Nucleated RBC (0-0) K/uL APTT 57.6 H* (21.0-31.0) Seconds POC pO2 (80-95) mmHg POC HCO3 (19-24) julian/L Potassium (3.5-5.1) mmol/L Chloride (98-107) mmol/L Anion Gap (3-11) BUN (7-18) mg/dl Creatinine (0.6-1.2) mg/dl BUN/Creatinine Ratio (10-20) Glucose (70-99) mg/dl POC Glucose 160 H (70-99) Hemoglobin A1c 10.4 H (4.5-5.6) % Calcium (8.5-10.1) mg/dl Troponin I (0-0.045) ng/ml 05/10/18 05/10/18 Range/Units 05:12 07:53 Hgb (12.0-16.0) g/dL Hct (37-47) % MCH (25-34) pg MCHC (32-36) g/dL RDW Std Deviation (36.4-46.3) fL RDW Coeff of Flori (11.5-14.5) % Plt Count (130-400) K/uL Immature Gran # (Auto) (0.00-0.02) K/uL Neut # (Auto) (1.4-6.5) K/uL Lymph # (Auto) (1.2-3.4) K/uL Absolute Nucleated RBC (0-0) K/uL APTT (21.0-31.0) Seconds POC pO2 74 L (80-95) mmHg POC HCO3 26 H (19-24) julian/L Potassium (3.5-5.1) mmol/L Chloride (98-107) mmol/L Anion Gap (3-11) BUN (7-18) mg/dl Creatinine (0.6-1.2) mg/dl BUN/Creatinine Ratio (10-20) Glucose (70-99) mg/dl POC Glucose 153 H (70-99) Hemoglobin A1c (4.5-5.6) % Calcium (8.5-10.1) mg/dl Troponin I (0-0.045) ng/ml Diagnostic Findings Chest CT PE protocol 1. Study limited due to the patient's large body habitus 2. No evidence of acute pulmonary embolism 3. Bilateral lower lobe atelectasis/consolidation. Area of left upper lobe atelectasis/consolidation 4. Diffusely abnormal trabecular pattern of the bones, suspicious for diffuse osseous metastasis. Clinical correlation in this regard is advocated CT abd/pelvis w/ con 1. No bowel obstruction. No free air. 2. Heterogeneity of visualized skeletal structures with innumerable skeletal lesions, predominantly blastic. The findings favor blastic metastatic disease. 3. Evidence for mild volume overload. 4. Colonic diverticulosis without evidence for acute diverticulitis. 5. Bowel containing ventral hernia. BLE doppler 1. Severely compromised examination. 2. Deep venous thrombosis is identified within both legs. head ct>> There is no hemorrhage, mass effect, or evidence of acute territorial ischemia by CT criteria. _ (1) Acute on chronic renal failure Acute renal failure type: unspecified Chronic kidney disease stage: stage 3 ( moderate) Qualified Code(s): N17.9 - Acute kidney failure, unspecified; N18.3 - Chronic kidney disease, stage 3 (moderate)
[2018-05-10] MEDS ORDERED: [UNRECOGNIZED DRUG - OTHER] STA (09:11)
--- NOTE | 2018-05-10 09:19 | Critical Care Progress Note ---
Date of Service May 10, 2018 Assessment & Plan (1) Acute respiratory failure with hypoxia and hypercapnia: Impression: 1. Acute on chronic hypercapnic respiratory failure. 2. Morbid obesity, currently intubated. 3. Bilateral atelectasis contributing to the above. 4. 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 5. Diabetes mellitus with hyperglycemia, controlled with insulin drip. 6. Breast cancer with metastasis to the bony structures. 7. Hypercalcemia treated with Xgeva as outpatient. 8. Chronic kidney disease, worsening for the past 2 months. 9. Right ventricular failure with severe pulmonary hypertension, not estimated on the echo. 10. History of rheumatoid arthritis. 11. Bradycardia, could be iatrogenic secondary to sedation, however is most likely related to severely dilated RV. 12. Bilateral DVT involving femoral and iliac veins. Age of these DVT is indeterminant. Plan: 1. Extubate the patient. 2. Discontinue propofol. 3. Continue dobutamine at 5 mics per KG per minute. 4. Discontinue norepinephrine. 5. In review of the venous duplex, and discussed with Dr. Cobb, felt that IVC filter is not needed at this point. We will continue with heparin drip. 6. Continue vap bundle. 7. Keep the A-line for today. 8. Follow the results of bronchoscopy culture. 9. Continue Zosyn. 10. ABG was reviewed and acceptable for extubation. 11. Core measures for ICU stay, patient is already on heparin drip, PPI as well. 12. Thrombocytopenia has been stable. 13. Renal consult to Dr. Hicks, family requested, awaiting input. Renal function is improving. 14. Lasix 1 dose given at 60 mg. 15. Due to severely dilated RV, with dobutamine, likely the forward flow and decrease in PVR with increased the chance for pulmonary edema. 16. Attempts swallow testing at the bedside. 17. Glucose control with insulin drip, appreciate Dana Mcclure, PhD input in that regard. 18. Discontinue IV fluid. 19. Daily labs. 20. Appreciate Dr. Light input from oncology regarding her thrombocytopenia. 21. Discussed with the in details at the bedside, agreed to the above, patient remains full code. 22. Appreciate wound care consult. Discussed with the staff in details, critical care time spent with the patient was 45 minutes excluding procedure time. Subjective The patient was awake, following commands, she tolerated CPAP trial over 2 hours , she denies any pain, no shortness of breath, bothered with the ET tube. Review of system was limited as the patient was still intubated. Physical Exam 2 Vital Signs (Past 24 Hours): Last Vital Signs Temp 37.3 C 05/10/18 08:00 Pulse 69 05/10/18 08:30 Resp 22 05/10/18 08:30 BP 136/65 05/10/18 08:30 Pulse Ox 96 05/10/18 08:30 Physical Exam: Her vital signs are stable, S1-S2 regular rate and rhythm, blood pressure is elevated, lungs are distant breath sounds, abdomen is obese but benign, lower extremity skin changes surgically wrapped. Neurologically appeared nonfocal. Results & Data Laboratory Results Labs showed normal white count, hematocrit of 36 and platelets of 55. Mild left shift. Her PTT was 57 and her ABG was 7.4 0/41/74/20 6/95%. CO2 of 27 and BUN/creatinine 58 and 1.5. Troponin is 2.3. Diagnostic Findings Repeat venous Doppler results were noted, discussed with Dr. Cobb, feels the changes are chronic.
[2018-05-10] MEDS: DOBUTamine / D5W 500 MG/250 ML BAG IV SCH ×2 (09:28→20:31)
[2018-05-10] MEDS ORDERED: INSULIN GLARGINE SOLOSTAR 100 UNITS/ML 3 ML PEN SC ONE ×2 (09:30→21:00)
[2018-05-10] MEDS: INSULIN ASPART 100 UNITS/ML 3 ML PEN SC SCH ×4 (10:21→20:12)
[2018-05-10] MEDS: MICONAZOLE NITRATE POWDER 43 GM EXT SCH ×2 (10:22→20:21)
[2018-05-10] MEDS: [UNRECOGNIZED DRUG - REMARK] SCH ×2 (10:22→16:19)
[2018-05-10] MEDS: HydrALAZINE HCL 20 MG/ML VIAL IV SCH ×4 (11:17→22:47)
[2018-05-10] MEDS ORDERED: dexAMETHasone 4 MG TAB PO SCH (12:00)
[2018-05-10] MEDS: dexAMETHasone 4 MG TAB PO SCH ×2 (13:18→20:19)
[2018-05-10] MEDS: PANTOprazole 40 MG TAB PO SCH (13:18)
[2018-05-10] MEDS: ANASTROZOLE 1 MG TAB PO SCH (13:18)
[2018-05-10] MEDS: METOPROLOL SUCC 25MG EXT REL TAB PO SCH ×2 (13:18→20:20)
[2018-05-10] MEDS: FUROSEMIDE 20 MG in SYRINGE 0 ML IV SCH ×3 (15:18→22:47)
[2018-05-10 16:21] LABS: BUN Creatinine Ratio 33.6 (10-20); Calcium 8.3 mg/dl (8.5-10.1); Creatinine Clr Calc Pharmacy 51.2 ml/min; Est GFR (African American) 37.6; Est GFR (Non-African American) 32.5; Magnesium 1.7 mg/dl (1.8-2.4); Potassium 4.8 mmol/L (3.5-5.1)
[2018-05-10 16:23] LABS: Phosphorus 3.4 mg/dl (2.5-4.9)
[2018-05-10] MEDS ORDERED: [UNRECOGNIZED DRUG - OTHER] ONE (20:00)
[2018-05-10] MEDS: OXYCODONE HCL IR 5 MG TAB (IMMEDIATE RELEASE) PO PRN (23:22)
[2018-05-10] MEDS ORDERED: LORazepam 0.5 MG TAB PO PRN (23:45)
[2018-05-10] MEDS ORDERED: LORazepam 0.5 MG TAB ONE (23:54)
[2018-05-11] MEDS: [UNRECOGNIZED DRUG - REMARK] SCH ×3 (00:59→16:08)
[2018-05-11] MEDS: INSULIN ASPART 100 UNITS/ML 3 ML PEN SC SCH ×6 (02:54→21:41)
[2018-05-11] MEDS: FUROSEMIDE 20 MG in SYRINGE 0 ML IV SCH ×4 (03:40→21:44)
[2018-05-11] MEDS: PIPERACILLIN/TAZOBACTAM 4.5 GM in DEXTROSE 5% 100 ML IV SCH (03:47)
[2018-05-11] MEDS: HydrALAZINE HCL 20 MG/ML VIAL IV SCH ×6 (03:47→21:44)
[2018-05-11] MEDS: OXYCODONE HCL IR 5 MG TAB (IMMEDIATE RELEASE) PO PRN ×2 (04:58→12:07)
[2018-05-11 05:25] LABS: Partial Thromboplastin Ratio 4.5
[2018-05-11 05:27] LABS: BUN Creatinine Ratio 32.8 (10-20); Calcium 8.5 mg/dl (8.5-10.1); Creatinine Clr Calc Pharmacy 49.7 ml/min; Est GFR (African American) 36.3; Est GFR (Non-African American) 31.3; Magnesium 1.7 mg/dl (1.8-2.4); Phosphorus 3.1 mg/dl (2.5-4.9); Potassium 4.3 mmol/L (3.5-5.1)
[2018-05-11 05:45] LABS: Hematocrit (blood only) 36.5 % (37-47); Hemoglobin 10.8 g/dL (12.0-16.0); Mean Corpuscular Hgb Conc 29.6 g/dL (32-36); Mean Corpuscular Volume 79.2 fL (80-100); Platelet Count 71 K/uL (130-400); RDW Coefficient of Variation 17.9 % (11.5-14.5); RDW Standard Deviation 51.1 fL (36.4-46.3); Red Blood Count 4.61 M/uL (4.2-5.4); White Blood Count 7.79 K/uL (4.8-10.8)
[2018-05-11 05:49] LABS: Immature Granulocytes # (auto) 0.04 K/uL (0.00-0.02); Immature Granulocytes % (auto) 0.5 %; Lymphocytes # (auto) 0.42 K/uL (1.2-3.4); Lymphocytes % (auto) 5.4 %; Monocytes # (auto) 0.28 K/uL (0.11-0.59); Monocytes % (auto) 3.6 %; Neutrophils # (auto) 7.05 K/uL (1.4-6.5); Neutrophils % (auto) 90.5 %
[2018-05-11] MEDS ORDERED: INSULIN REGULAR 250 UNITS in SODIUM CHLORIDE 0.9% 247.5 ML IV SCH (06:28)
[2018-05-11] MEDS: INSULIN REGULAR 250 UNITS in SODIUM CHLORIDE 0.9% 247.5 ML IV SCH (06:37)
[2018-05-11] MEDS: DOBUTamine / D5W 500 MG/250 ML BAG IV SCH (06:40)
[2018-05-11] MEDS: HEPARIN STANDARD DEXTROSE 25,000 UNITS/500 ML IV SCH (06:41)
[2018-05-11 06:52] LABS: Partial Thromboplastin Time 117.8 Seconds (21.0-31.0)
[2018-05-11] MEDS: FEXOFENADINE HCL 180 MG TAB PO SCH (07:47)
[2018-05-11] MEDS: dexAMETHasone 4 MG TAB PO SCH ×2 (07:47→20:36)
[2018-05-11] MEDS: ANASTROZOLE 1 MG TAB PO SCH (07:47)
[2018-05-11] MEDS: PANTOprazole 40 MG TAB PO SCH (07:47)
[2018-05-11] MEDS: METOPROLOL SUCC 25MG EXT REL TAB PO SCH ×2 (07:47→20:36)
[2018-05-11] MEDS: MICONAZOLE NITRATE POWDER 43 GM EXT SCH ×2 (07:51→20:36)
[2018-05-11] MEDS ORDERED: INSULIN GLARGINE SOLOSTAR 100 UNITS/ML 3 ML PEN SC ONE (08:00)
--- NOTE | 2018-05-11 08:11 | Pharmacy Report ---
Pharmacy Glycemic Short Note 2 - Date of Service May 11, 2018 - Glycemic Short BSG Results (Last 24 hours): 05/10/18 05/10/18 05/10/18 07:53 10:13 11:06 Glucose POC Glucose 153 H 134 H 123 H 05/10/18 05/10/18 05/10/18 11:57 13:01 14:13 Glucose POC Glucose 117 H 139 H 130 H 05/10/18 05/10/18 05/10/18 15:05 15:48 16:10 Glucose 188 H POC Glucose 162 H 160 H 05/10/18 05/10/18 05/10/18 17:09 17:58 18:57 Glucose POC Glucose 209 H 243 H 276 H 05/10/18 05/10/18 05/10/18 20:02 21:06 22:15 Glucose POC Glucose 287 H 248 H 246 H 05/10/18 05/11/18 05/11/18 23:17 00:02 01:03 Glucose POC Glucose 223 H 217 H 199 H 05/11/18 05/11/18 05/11/18 02:02 03:03 04:06 Glucose POC Glucose 207 H 184 H 189 H 05/11/18 05/11/18 05/11/18 04:48 05:15 06:08 Glucose 163 H POC Glucose 150 H 129 H 05/11/18 07:09 Glucose POC Glucose 145 H Outpatient Anti-diabetic Regimen: * Lantus 22 units SC qPM * Insulin aspart SC AC * A1c = 7.5 % on 03/05/18, increased to 10.4% on 05/10/18 The patient is currently receiving: * Insulin drip @ 6.8 units/hr Risk Factors for Insulin Resistance: * Steroids: dexamethasone 4 mg PO BID * Infection: ?PNA on Zosyn * Pressors: dobutamine * IVF: heparin drip * Diet: T2DM * Mechanical Ventilation: extubated 05/10 AM ASSESSMENT: * 62 yo F admitted on 05/09/18 unresponsive and intubated, possibly 2nd glycemic crisis. Patient not in DKA but HHS a possibility. * Attempted to transition off drip yesterday - Lantus 50 units in AM successfully caused decrease in insulin drip rate from 6.5 to 2.7 units/hr over ~4-5 hours. However, patient was then ordered a diet. She consumed lunch but calculator did not indicate to cover CHO. A significant amount of CHO (61 g) consumed with dinner and was covered with Novolog, but only at a ratio of 8 g CHO/unit per insulin drip calculator. Patient had a small snack overnight of 13 g CHO - covered with 13 units Novolog. * Therefore, do not think the transition from IV to basal/bolus failed 2nd insufficiency of Lantus dosing, but rather insufficient CHO coverage in a patient on dexamethasone 4 mg po BID. * Will continue Lantus at previous dose yesterday * Will pre-select tighter CHO ratio (insulin drip calculator will go to a max of 5 g CHO/unit and this patient likely requires more) * Of note, A1c increased significantly over the last 3 months - per RN (Nikole) , patient's noted significant issues in the previous few weeks prior to admission, likely attributed to initiation of steroids for ITP. A1c is a reflection of BSG control over the previous 3 months, however, the most recent 2 weeks have a more significant impact on the value and therefore this suggests the profound impact of steroids on BSG for this patient * No surgical intervention anticipated with Dr. Cobb for IVC filter despite DVTs noted in both legs as these are considered stable and this time and therefore anticoagulation should be sufficient PLAN FOR INPATIENT GLYCEMIC CONTROL: * Continue insulin drip for now, goal range 140-180 mg/dL * Lantus 50 units SC x1 now. Additional Lantus tonight based on insulin drip rate as follows: * 0 units for drip less than 4 units/hr * 20 units for drip 4 units/hr or greater * Continue Novolog ACHS to cover CHO consumption - ratio *not* determined by calculator but pre-selected as 3 g CHO/unit * Criteria for insulin drip transition (must meet all) * BSG less than 180 mg/dL x2 consecutive checks * Insulin drip rate less than 2 units/hr
[2018-05-11] MEDS: MAGNESIUM OXIDE 400 MG TAB PO SCH ×2 (09:20→20:36)
[2018-05-11] MEDS: APIXABAN 5 MG TABLET PO SCH ×2 (10:50→20:36)
--- NOTE | 2018-05-11 13:01 | Cardiology Progress Note ---
Date of Service May 11, 2018 Assessment & Plan (1) Acute respiratory failure with hypoxia and hypercapnia: Initial respiratory failure likely related to benzodiazepines / narcotic medications, mucous plugging with subsequent hypoxia and CO2 retention. Patient successfully extubated and recovering well. (2) Acute on chronic right heart failure: Negative fluid balance with approximately 6.5 L of urine output. Recommend reducing Lasix to 20 mg every 8 hours. May consider low-dose Aldactone in the future, however, I would not currently during active intravenous diuresis. Wean dobutamine over the next 12 hours. Continue p.o. metoprolol. She will require oral diuretic therapy at the time of discharge to maintain adequate fluid balance. Appreciate nephrology input regarding diuretic therapy. (3) Acute on chronic renal failure: Creatinine mildly elevated today in the setting of significant diuresis. Reduce Lasix as noted above. Nephrology input appreciated. Assess BMP daily. (4) Elevated troponin I level: Secondary to hypoxic /hypercapnic respiratory failure in the setting of possible CAP, mucous plugging, and right-sided heart failure. No left ventricular regional myocardial wall motion abnormalities on echocardiogram. Patient currently receiving intravenous anticoagulation for bilateral DVT. No evidence of PE per CTA of the chest. (5) New onset right bundle branch block (RBBB): Suspect secondary to right ventricular pressure/volume overload. (6) Altered mental status: Secondary to hypoxic and hypercapnic respiratory failure, hyperglycemia, possible pneumonia/mucous plugging. (7) Hyperglycemia: Continue insulin infusion. (8) DVT of lower extremity, bilateral: Hematology input appreciated. IV heparin discontinued and Eliquis restarted. (9) Thrombocytopenia: No overt signs of bleeding. Follow daily CBC. Subjective Patient seen and examined at the bedside. Extubated yesterday without difficulty. She is awake and alert. Fluid balance negative approximately 6.5 L over the past 24 hours. Creatinine trending upward slightly. Is been is present at bedside. Patient denies chest pain or shortness of breath. Chronic back pain controlled however, she is somewhat uncomfortable in her hospital bed. No orthopnea or PND. In general she sleeps in a recliner. She offers no concerns at this time. Eliquis restarted. No signs/symptoms of GI/ blood loss per Review of Systems All systems reviewed & are unremarkable except as noted in HPI & below Physical Exam 2 Vital Signs (Past 24 Hours): Last Vital Signs Temp 36.5 C 01/27/19 08:01 Pulse 65 05/11/18 11:00 Resp 20 05/11/18 11:00 BP 137/65 05/11/18 11:00 Pulse Ox 93 05/11/18 11:00 Physical Exam: General: awake and alert. NAD. Oriented x3. Morbidly obese. HEENT: Normocephalic. Atraumatic. Conjunctiva pink, no scleral icterus. Neck: No carotid bruits, the carotid upstrokes are brisk. Unable to assess JVD secondary to body habitus. Heart: Regular, bradycardic, distant heart sounds. Normal S-1 and S-2 no S-3 or S-4 gallop. No murmurs or rub appreciated. PMI is not displaced. Lungs: Coarse breath sounds bilaterally. No rales or wheeze. Abdomen: Obese. 1-2+ pitting edema of pannus. Normal bowel sounds. Soft. Nontender. No masses or organomegaly. No abdominal bruits. Extremities: 1+ bilateral pretibial upper leg pitting edema. + Left pretibial ulcer. No clubbing, or cyanosis. Pulses: radial=2/4, posterior tibial=2/4. Neuro: Cranial nerves grossly intact. No focal motor deficit. _ (1) DVT of lower extremity, bilateral Affected thrombotic vein of extremity: femoral Chronicity: acute Qualified Code(s): I82.413 - Acute embolism and thrombosis of femoral vein, bilateral (2) Altered mental status Altered mental status type: unspecified Coma depth: Coma timing: Qualified Code(s): R41.82 - Altered mental status, unspecified (3) Acute on chronic renal failure Acute renal failure type: unspecified Chronic kidney disease stage: stage 3 ( moderate) Qualified Code(s): N17.9 - Acute kidney failure, unspecified; N18.3 - Chronic kidney disease, stage 3 (moderate)
--- NOTE | 2018-05-11 13:55 | Nephrology Progress Note ---
Date of Service May 11, 2018 Assessment & Plan (1) Acute on chronic renal failure: her baseline is hard to quantify w/ the changes in her health and fluid status recently. Had had a baseline 1.3-1.5 creatinine when I last saw her 11/2017 just as BRCA dx 'd; more recently has been 1.0-1.1 but this in status of 20 lb wt gain most of which is likely water; I suspect her baseline euvolemic renal function remains 1.3-1.5 creatinine. diuresing VERY well w/ dobutamine and frequent low dose IV lasix>> agree w/ cutting back to 20 mg IV tid now; fortunately not oliguric; mild hyperkalemia noted; glucose w/ acceptable control; other chemistries acceptable for now -creatinine up to 1.7 from 1.5 yesterday AM has been running 1.5-1.7 for 72 hrs ; chemistries acceptable -still remains high risk for worsening renal failure given IV contrast, critical illness, obligate aggressive diuretics -monitor mag, calcium, phos, bmp daily (2) Acute on chronic right heart failure: in setting of acute on chronic hypercapnic respiratory failure -appreciate cardiology, critical care recs; slight troponin bump noted -follow on dobutamine, lasix>> improved today and dobutamine titrated to off through the day (3) Metastatic breast cancer: w/ bony mets, hypercalcemia, chronic thrombocytopenia, and chronic volume overload, BL DVT (4) Thrombocytopenia: Outpt plts range (5) Hypertension: elevated on art line in 200s systolic; goal would be 150s systolic -lasix as above -agree w/ hydralazine and metoprolol as ordered -ensure pain is controlled/addressed Subjective down about 10 kg (bedscales); and down about 8L net negative as of this am. renal function holding steady. seen on rounds this afternoon 1515; pt was improved, up in chair; on RA, gearing up for transfer out of ICU sob improved; ongoing back pain; c/o ongoing poor sleep; no F; tolerating po; no courtney concerns; edema perhaps a bit improved. no palpitations. no n/v/d/c. no rash; LLE wound unchanged. no focal numbness/weakness. Physical Exam 2 Vital Signs (Past 24 Hours): Last Vital Signs Temp 36.5 C 05/11/18 08:01 Pulse 65 05/11/18 11:00 Resp 20 05/11/18 11:00 BP 137/65 05/11/18 11:00 Pulse Ox 93 05/11/18 11:00 Constitutional: well developed, well nourished and + morbidly obese up in chair on RA A& 0 x 3 Eyes: EOM intact bilaterally ENMT: Ears: no external ear abnormality Nose: no external nose abnormality Mouth: + dry oral mucous membranes Neck: no nuchal rigidity Respiratory: normal respiratory effort Auscultation: + diminished lung sounds (but slightly more air mvt today than yesterday on exam) Cardiovascular: Rate/Rhythm: regular rate (HS distant) and regular rhythm Extremities: + edema (2+ distal BLE) Gastrointestinal (Abdomen): Inspection/Auscultation: normal bowel sounds Percussion/Palpation: abdomen soft; abdomen nontender Musculoskeletal: no cyanosis or clubbing, extremities motor strength 5/5 Extremities: strength 5/5 throughout Skin: no rashes, warm and dry + ulcer (LLE wrapped) Neurologic: rios, fluent speech, no tremor Psychiatric: A+Ox3, euthymic affect Genitourinary: courtney present w/ ample light urine Results & Data Laboratory Results Abnormal lab results 05/10/18 05/10/18 05/10/18 Range/Units 21:06 22:15 23:17 Hgb (12.0-16.0) g/dL Hct (37-47) % MCV (80-100) fL MCH (25-34) pg MCHC (32-36) g/dL RDW Std Deviation (36.4-46.3) fL RDW Coeff of Flori (11.5-14.5) % Plt Count (130-400) K/uL Immature Gran # (Auto) (0.00-0.02) K/uL Neut # (Auto) (1.4-6.5) K/uL Lymph # (Auto) (1.2-3.4) K/uL APTT (21.0-31.0) Seconds BUN (7-18) mg/dl Creatinine (0.6-1.2) mg/dl BUN/Creatinine Ratio (10-20) Glucose (70-99) mg/dl POC Glucose 248 H 246 H 223 H (70-99) Magnesium (1.8-2.4) mg/dl 05/11/18 05/11/18 05/11/18 Range/Units 00:02 01:03 02:02 Hgb (12.0-16.0) g/dL Hct (37-47) % MCV (80-100) fL MCH (25-34) pg MCHC (32-36) g/dL RDW Std Deviation (36.4-46.3) fL RDW Coeff of [place] (11.5-14.5) % Plt Count (130-400) K/uL Immature Gran # (Auto) (0.00-0.02) K/uL Neut # (Auto) (1.4-6.5) K/uL Lymph # (Auto) (1.2-3.4) K/uL APTT (21.0-31.0) Seconds BUN (7-18) mg/dl Creatinine (0.6-1.2) mg/dl BUN/Creatinine Ratio (10-20) Glucose (70-99) mg/dl POC Glucose 217 H 199 H 207 H (70-99) Magnesium (1.8-2.4) mg/dl 05/11/18 05/11/18 05/11/18 Range/Units 03:03 04:06 04:48 Hgb 10.8 L (12.0-16.0) g/dL Hct 36.5 L (37-47) % MCV 79.2 L (80-100) fL MCH 23.4 L (25-34) pg MCHC 29.6 L (32-36) g/dL RDW Std Deviation 51.1 H (36.4-46.3) fL RDW Coeff of [place] 17.9 H (11.5-14.5) % Plt Count 71 L (130-400) K/uL Immature Gran # (Auto) 0.04 H (0.00-0.02) K/uL Neut # (Auto) 7.05 H (1.4-6.5) K/uL Lymph # (Auto) 0.42 L (1.2-3.4) K/uL APTT (21.0-31.0) Seconds BUN (7-18) mg/dl Creatinine (0.6-1.2) mg/dl BUN/Creatinine Ratio (10-20) Glucose (70-99) mg/dl POC Glucose 184 H 189 H (70-99) Magnesium (1.8-2.4) mg/dl 05/11/18 05/11/18 05/11/18 Range/Units 04:48 04:48 05:15 Hgb (12.0-16.0) g/dL Hct (37-47) % MCV (80-100) fL MCH (25-34) pg MCHC (32-36) g/dL RDW Std Deviation (36.4-46.3) fL RDW Coeff of [place] (11.5-14.5) % Plt Count (130-400) K/uL Immature Gran # (Auto) (0.00-0.02) K/uL Neut # (Auto) (1.4-6.5) K/uL Lymph # (Auto) (1.2-3.4) K/uL APTT 117.8 H* (21.0-31.0) Seconds BUN 56 H (7-18) mg/dl Creatinine 1.71 H (0.6-1.2) mg/dl BUN/Creatinine Ratio 32.8 H (10-20) Glucose 163 H (70-99) mg/dl POC Glucose 150 H (70-99) Magnesium 1.7 L (1.8-2.4) mg/dl 05/11/18 05/11/18 05/11/18 Range/Units 06:08 07:09 08:06 Hgb (12.0-16.0) g/dL Hct (37-47) % MCV (80-100) fL MCH (25-34) pg MCHC (32-36) g/dL RDW Std Deviation (36.4-46.3) fL RDW Coeff of [place] (11.5-14.5) % Plt Count (130-400) K/uL Immature Gran # (Auto) (0.00-0.02) K/uL Neut # (Auto) (1.4-6.5) K/uL Lymph # (Auto) (1.2-3.4) K/uL APTT (21.0-31.0) Seconds BUN (7-18) mg/dl Creatinine (0.6-1.2) mg/dl BUN/Creatinine Ratio (10-20) Glucose (70-99) mg/dl POC Glucose 129 H 145 H 167 H (70-99) Magnesium (1.8-2.4) mg/dl 05/11/18 05/11/18 05/11/18 Range/Units 09:15 10:17 11:44 Hgb (12.0-16.0) g/dL Hct (37-47) % MCV (80-100) fL MCH (25-34) pg MCHC (32-36) g/dL RDW Std Deviation (36.4-46.3) fL RDW Coeff of [place] (11.5-14.5) % Plt Count (130-400) K/uL Immature Gran # (Auto) (0.00-0.02) K/uL Neut # (Auto) (1.4-6.5) K/uL Lymph # (Auto) (1.2-3.4) K/uL APTT (21.0-31.0) Seconds BUN (7-18) mg/dl Creatinine (0.6-1.2) mg/dl BUN/Creatinine Ratio (10-20) Glucose (70-99) mg/dl POC Glucose 223 H 144 H 128 H (70-99) Magnesium (1.8-2.4) mg/dl 05/11/18 05/11/18 05/11/18 Range/Units 12:46 13:51 15:03 Hgb (12.0-16.0) g/dL Hct (37-47) % MCV (80-100) fL MCH (25-34) pg MCHC (32-36) g/dL RDW Std Deviation (36.4-46.3) fL RDW Coeff of [place] (11.5-14.5) % Plt Count (130-400) K/uL Immature Gran # (Auto) (0.00-0.02) K/uL Neut # (Auto) (1.4-6.5) K/uL Lymph # (Auto) (1.2-3.4) K/uL APTT (21.0-31.0) Seconds BUN (7-18) mg/dl Creatinine (0.6-1.2) mg/dl BUN/Creatinine Ratio (10-20) Glucose (70-99) mg/dl POC Glucose 141 H 153 H 145 H (70-99) Magnesium (1.8-2.4) mg/dl 05/11/18 05/11/18 05/11/18 Range/Units 16:28 17:39 18:28 Hgb (12.0-16.0) g/dL Hct (37-47) % MCV (80-100) fL MCH (25-34) pg MCHC (32-36) g/dL RDW Std Deviation (36.4-46.3) fL RDW Coeff of [place] (11.5-14.5) % Plt Count (130-400) K/uL Immature Gran # (Auto) (0.00-0.02) K/uL Neut # (Auto) (1.4-6.5) K/uL Lymph # (Auto) (1.2-3.4) K/uL APTT (21.0-31.0) Seconds BUN (7-18) mg/dl Creatinine (0.6-1.2) mg/dl BUN/Creatinine Ratio (10-20) Glucose (70-99) mg/dl POC Glucose 124 H 145 H 138 H (70-99) Magnesium (1.8-2.4) mg/dl 05/11/18 05/11/18 05/11/18 Range/Units 19:26 20:05 20:26 Hgb (12.0-16.0) g/dL Hct (37-47) % MCV (80-100) fL MCH (25-34) pg MCHC (32-36) g/dL RDW Std Deviation (36.4-46.3) fL RDW Coeff of [place] (11.5-14.5) % Plt Count (130-400) K/uL Immature Gran # (Auto) (0.00-0.02) K/uL Neut # (Auto) (1.4-6.5) K/uL Lymph # (Auto) (1.2-3.4) K/uL APTT (21.0-31.0) Seconds BUN (7-18) mg/dl Creatinine (0.6-1.2) mg/dl BUN/Creatinine Ratio (10-20) Glucose (70-99) mg/dl POC Glucose 175 H 136 H 122 H (70-99) Magnesium (1.8-2.4) mg/dl 01/27/19 01/27/19 Range/Units 20:43 21:00 Hgb (12.0-16.0) g/dL Hct (37-47) % MCV (80-100) fL MCH (25-34) pg MCHC (32-36) g/dL RDW Std Deviation (36.4-46.3) fL RDW Coeff of [place] (11.5-14.5) % Plt Count (130-400) K/uL Immature Gran # (Auto) (0.00-0.02) K/uL Neut # (Auto) (1.4-6.5) K/uL Lymph # (Auto) (1.2-3.4) K/uL APTT (21.0-31.0) Seconds BUN (7-18) mg/dl Creatinine (0.6-1.2) mg/dl BUN/Creatinine Ratio (10-20) Glucose (70-99) mg/dl POC Glucose 135 H 131 H (70-99) Magnesium (1.8-2.4) mg/dl _ (1) Acute on chronic renal failure Acute renal failure type: unspecified Chronic kidney disease stage: stage 3 ( moderate) Qualified Code(s): N17.9 - Acute kidney failure, unspecified; N18.3 - Chronic kidney disease, stage 3 (moderate)
[2018-05-11] MEDS ORDERED: SILVER NITR/POTASSIUM NITRATE APPLICATOR EXT SCH (14:00)
[2018-05-11] MEDS ORDERED: SILVER NITR/POTASSIUM NITRATE APPLICATOR ONE ×2 (14:27→14:29)
[2018-05-11] MEDS: AMOXICILLIN/CLAVULANATE 875 MG TAB PO SCH (16:32)
--- NOTE | 2018-05-11 17:42 | Hospitalist Progress Note ---
Date of Service May 11, 2018 Assessment & Plan (1) Acute respiratory failure with hypoxia and hypercapnia: Acute on chronic hypoxic and hypercapnic respiratory failure. Intubated on vent. No overt pulmonary edema on chest x-ray. No definite pulmonary infiltrates. PE ruled out by CTA. Nonsmoker. Denies history of COPD or asthma. May have obesity hypoventilation syndrome, sleep apnea, obstructive airway disease. Extubated. Continue trials of BiPAP as tolerated. (2) Acute on chronic right heart failure: Echo showed dilated right ventricle with reduced EF. Acute PE ruled out by CTA. Consider hypoventilation syndrome, sleep apnea, obstructive airway disease, chronic thromboembolic disease. (3) Elevated troponin I level: Serum troponin as high as Cardiology consulted. No left ventricular segmental wall motion abnormalities on echo. Elevated troponin could be secondary to respiratory failure or right-sided heart failure. (4) New onset right bundle branch block (RBBB): Attributed to RV strain. (5) DVT of lower extremity, bilateral: Prior history of DVT lower extremities. Had been treated with apixaban, but it was discontinued because of thrombocytopenia. Venous duplex 05/09/18 demonstrated extensive DVT in bilateral lower extremities , including proximal veins. Received IV heparin; transitioned to apixaban. Vascular Surgery consulted re: consideration of IVC filter. (6) Acute kidney injury: CKD III with baseline creatinine of 0.89 on 03/06/18. Creatinine at time of admission 2.06. Acute kidney injury, probably due to respiratory failure and possible other contributing factors. Nephrology consulted. Creatinine today = 1.71. (7) CKD (chronic kidney disease), stage III: As noted above. (8) Altered mental status: CT head without acute findings. Probable encephalopathy secondary to respiratory failure. Resolved. (9) Hypertension: Managed with atenolol at home. BP's low in ED. Now on metoprolol succinate. Follow and titrate Rx. (10) DM type 2 (diabetes mellitus, type 2): Managed with insulin at home. Presented with random glucose of 469. Underlying physiologic stressors. Rule out infection. Need to clarify recent steroid use. Hgb A1C = 10.4. Pharmacy consulted for glycemic management. Managed with insulin infusion per protocol. (11) Morbid obesity: Wt 145 kg. BMI 51.6. AHA diet when able to resume oral nutrition. 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 Platelet count at time of admission 27,000. Hematology consulted. Platelet count today = 71,000. (13) Metastatic breast cancer: Invasive ductal carcinoma right breast with skeletal mets and hypercalcemia. Management per Heme / Onc. (14) DVT prophylaxis: Management of acute DVT as discussed above. (15) Discharge planning issues: Discharge disposition to be determined. Primary care follow-up with Dr. Goodwin. Subjective Recheck for multiple problems. Patient seen in her room around 1700. Doing much better. Extubated. Tried BiPAP, but did not tolerate it. Weaned of dobutamine. Heparin stopped. Still on insulin drip. No fever. Occasional cough. No chest pain. No nausea or vomiting. No melena or hematochezia. Physical Exam 2 Vital Signs (Past 24 Hours): Last Vital Signs Temp 36.9 C 05/11/18 16:01 Pulse 71 05/11/18 16:01 Resp 23 05/11/18 16:01 BP 130/80 05/11/18 16:01 Pulse Ox 93 05/11/18 16:01 Constitutional: + morbidly obese; no acute distress Eyes: + anicteric sclerae Respiratory: no respiratory distress Auscultation: + rhonchi (few) Cardiovascular: Rate/Rhythm: regular rate and regular rhythm Heart Sounds: no gallop and no murmur Vessels: + JVD Extremities: + edema (2-3+ pretibial) Gastrointestinal (Abdomen): Percussion/Palpation: abdomen soft; abdomen nontender Skin: + rash (moderate erythema bilat legs) Genitourinary: + abnormal external appearance (Ta cath) Results & Data Laboratory Results Laboratory Results - last 24 hr 05/10/18 05/10/18 05/10/18 17:58 18:57 20:02 WBC RBC Hgb Hct MCV MCH MCHC RDW Std Deviation RDW Coeff of Flori Plt Count Immature Gran % (Auto) Neut % (Auto) Lymph % (Auto) [place] % (Auto) Eos % (Auto) Baso % (Auto) Immature Gran # (Auto) Neut # (Auto) Lymph # (Auto) [place] # (Auto) Eos # (Auto) Baso # (Auto) Platelet Estimate APTT PTT Ratio Sodium Potassium Chloride Carbon Dioxide Anion Gap BUN Creatinine Est Cr Clr Drug Dosing Est GFR ( Amer) Est GFR (Non-Af Amer) BUN/Creatinine Ratio Glucose POC Glucose 243 H 276 H 287 H Calcium Phosphorus Magnesium 05/10/18 05/10/18 05/10/18 21:06 22:15 23:17 WBC RBC Hgb Hct MCV MCH MCHC RDW Std Deviation RDW Coeff of Flori Plt Count Immature Gran % (Auto) Neut % (Auto) Lymph % (Auto) [place] % (Auto) Eos % (Auto) Baso % (Auto) Immature Gran # (Auto) Neut # (Auto) Lymph # (Auto) [place] # (Auto) Eos # (Auto) Baso # (Auto) Platelet Estimate APTT PTT Ratio Sodium Potassium Chloride Carbon Dioxide Anion Gap BUN Creatinine Est Cr Clr Drug Dosing Est GFR ( Amer) Est GFR (Non-Af Amer) BUN/Creatinine Ratio Glucose POC Glucose 248 H 246 H 223 H Calcium Phosphorus Magnesium 05/11/18 05/11/18 05/11/18 00:02 01:03 02:02 WBC RBC Hgb Hct MCV MCH MCHC RDW Std Deviation RDW Coeff of Flori Plt Count Immature Gran % (Auto) Neut % (Auto) Lymph % (Auto) [place] % (Auto) Eos % (Auto) Baso % (Auto) Immature Gran # (Auto) Neut # (Auto) Lymph # (Auto) [place] # (Auto) Eos # (Auto) Baso # (Auto) Platelet Estimate APTT PTT Ratio Sodium Potassium Chloride Carbon Dioxide Anion Gap BUN Creatinine Est Cr Clr Drug Dosing Est GFR ( Amer) Est GFR (Non-Af Amer) BUN/Creatinine Ratio Glucose POC Glucose 217 H 199 H 207 H Calcium Phosphorus Magnesium 05/11/18 05/11/18 05/11/18 03:03 04:06 04:48 WBC 7.79 RBC 4.61 Hgb 10.8 L Hct 36.5 L MCV 79.2 L MCH 23.4 L MCHC 29.6 L RDW Std Deviation 51.1 H RDW Coeff of Flori 17.9 H Plt Count 71 L Immature Gran % (Auto) 0.5 Neut % (Auto) 90.5 Lymph % (Auto) 5.4 [place] % (Auto) 3.6 Eos % (Auto) 0.0 Baso % (Auto) 0.0 Immature Gran # (Auto) 0.04 H Neut # (Auto) 7.05 H Lymph # (Auto) 0.42 L [place] # (Auto) 0.28 Eos # (Auto) 0.00 Baso # (Auto) 0.00 Platelet Estimate Decreased APTT PTT Ratio Sodium Potassium Chloride Carbon Dioxide Anion Gap BUN Creatinine Est Cr Clr Drug Dosing Est GFR ( Amer) Est GFR (Non-Af Amer) BUN/Creatinine Ratio Glucose POC Glucose 184 H 189 H Calcium Phosphorus Magnesium 05/11/18 05/11/18 05/11/18 04:48 04:48 05:15 WBC RBC Hgb Hct MCV MCH MCHC RDW Std Deviation RDW Coeff of Flori Plt Count Immature Gran % (Auto) Neut % (Auto) Lymph % (Auto) [place] % (Auto) Eos % (Auto) Baso % (Auto) Immature Gran # (Auto) Neut # (Auto) Lymph # (Auto) [place] # (Auto) Eos # (Auto) Baso # (Auto) Platelet Estimate APTT 117.8 H* PTT Ratio 4.5 Sodium 138 Potassium 4.3 Chloride 104 Carbon Dioxide 29 Anion Gap 5.0 BUN 56 H Creatinine 1.71 H Est Cr Clr Drug Dosing 49.7 Est GFR ( Amer) 36.3 Est GFR (Non-Af Amer) 31.3 BUN/Creatinine Ratio 32.8 H Glucose 163 H POC Glucose 150 H Calcium 8.5 Phosphorus 3.1 Magnesium 1.7 L 05/11/18 05/11/18 05/11/18 06:08 07:09 08:06 WBC RBC Hgb Hct MCV MCH MCHC RDW Std Deviation RDW Coeff of Flori Plt Count Immature Gran % (Auto) Neut % (Auto) Lymph % (Auto) [place] % (Auto) Eos % (Auto) Baso % (Auto) Immature Gran # (Auto) Neut # (Auto) Lymph # (Auto) [place] # (Auto) Eos # (Auto) Baso # (Auto) Platelet Estimate APTT PTT Ratio Sodium Potassium Chloride Carbon Dioxide Anion Gap BUN Creatinine Est Cr Clr Drug Dosing Est GFR ( Amer) Est GFR (Non-Af Amer) BUN/Creatinine Ratio Glucose POC Glucose 129 H 145 H 167 H Calcium Phosphorus Magnesium 05/11/18 05/11/18 05/11/18 09:15 10:17 11:44 WBC RBC Hgb Hct MCV MCH MCHC RDW Std Deviation RDW Coeff of Flori Plt Count Immature Gran % (Auto) Neut % (Auto) Lymph % (Auto) [place] % (Auto) Eos % (Auto) Baso % (Auto) Immature Gran # (Auto) Neut # (Auto) Lymph # (Auto) [place] # (Auto) Eos # (Auto) Baso # (Auto) Platelet Estimate APTT PTT Ratio Sodium Potassium Chloride Carbon Dioxide Anion Gap BUN Creatinine Est Cr Clr Drug Dosing Est GFR ( Amer) Est GFR (Non-Af Amer) BUN/Creatinine Ratio Glucose POC Glucose 223 H 144 H 128 H Calcium Phosphorus Magnesium 05/11/18 05/11/18 05/11/18 12:46 13:51 15:03 WBC RBC Hgb Hct MCV MCH MCHC RDW Std Deviation RDW Coeff of Flori Plt Count Immature Gran % (Auto) Neut % (Auto) Lymph % (Auto) [place] % (Auto) Eos % (Auto) Baso % (Auto) Immature Gran # (Auto) Neut # (Auto) Lymph # (Auto) [place] # (Auto) Eos # (Auto) Baso # (Auto) Platelet Estimate APTT PTT Ratio Sodium Potassium Chloride Carbon Dioxide Anion Gap BUN Creatinine Est Cr Clr Drug Dosing Est GFR ( Amer) Est GFR (Non-Af Amer) BUN/Creatinine Ratio Glucose POC Glucose 141 H 153 H 145 H Calcium Phosphorus Magnesium 05/11/18 05/11/18 16:28 17:39 WBC RBC Hgb Hct MCV MCH MCHC RDW Std Deviation RDW Coeff of Flori Plt Count Immature Gran % (Auto) Neut % (Auto) Lymph % (Auto) [place] % (Auto) Eos % (Auto) Baso % (Auto) Immature Gran # (Auto) Neut # (Auto) Lymph # (Auto) [place] # (Auto) Eos # (Auto) Baso # (Auto) Platelet Estimate APTT PTT Ratio Sodium Potassium Chloride Carbon Dioxide Anion Gap BUN Creatinine Est Cr Clr Drug Dosing Est GFR ( Amer) Est GFR (Non-Af Amer) BUN/Creatinine Ratio Glucose POC Glucose 124 H 145 H Calcium Phosphorus Magnesium _ (1) DVT of lower extremity, bilateral Affected thrombotic vein of extremity: femoral Chronicity: acute Qualified Code(s): I82.413 - Acute embolism and thrombosis of femoral vein, bilateral (2) Altered mental status Altered mental status type: unspecified Coma depth: Coma timing: Qualified Code(s): R41.82 - Altered mental status, unspecified
--- NOTE | 2018-05-11 18:04 | Critical Care Progress Note ---
Date of Service May 11, 2018 Assessment & Plan (1) Acute respiratory failure with hypoxia and hypercapnia: Impression: 1. Acute on chronic hypercapnic respiratory failure. 2. Morbid obesity, currently intubated. 3. Bilateral atelectasis contributing to the above. 4. 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 5. Diabetes mellitus with hyperglycemia, controlled with insulin drip. 6. Breast cancer with metastasis to the bony structures. 7. Hypercalcemia treated with Xgeva as outpatient. 8. Chronic kidney disease, worsening for the past 2 months. 9. Right ventricular failure with severe pulmonary hypertension, not estimated on the echo. 10. History of rheumatoid arthritis. 11. Bradycardia, could be iatrogenic secondary to sedation, however is most likely related to severely dilated RV. 12. Bilateral DVT involving femoral and iliac veins. Age of these DVT is indeterminant. Plan: 1. Continue supportive care. 2. Continue with oxycodone. 3. Taper dobutamine to off. 4. Avoid Ativan. Xanax can be used as needed if necessary. 5. In review of the venous duplex, and discussed with Dr. Cobb, felt that IVC filter is not needed at this point. We will continue with heparin drip. 6. Discontinue A-line. 7. Discontinue Zosyn. 8. Start Augmentin 875 mg p.o. twice daily for total of 7 days including previous days of Zosyn. 9. Occupational and physical therapy. 10. Replace magnesium. 11. Core measures for ICU stay, patient is already on heparin drip, PPI as well. 12. Thrombocytopenia has been stable, decrease the dose of dexamethasone to 2 mg p.o. twice daily.. 13. Renal consult to Dr. Hicks, appreciate their input. Patient was diuresed gently due to her exposure recently to IV contrast. 14. The patient urine output was 7100- balance of about the past 24 hours and tolerated well. 15. Watch for signs of RV failure after stopping dobutamine. The patient has been diuresed appropriately. 16. Oral intake. 17. Glucose control with insulin drip, appreciate Dana Mcclure, PhD input in that regard. 18. Daily labs. 19. Appreciate all consults involved. 20. Discussed with the staff on rounds and details. 21. Discussed with the in details at the bedside, agreed to the above, patient remains full code. 22. Appreciate wound care consult. 23. Appreciate Dr. Hoyt input, acceptance of the patient to regular floor. We will transfer the patient. CCM time was 35 minutes. Subjective Feeling better, urine output is adequate, her BUN and creatinine remained stable , the patient was 7100 mL in negative balance overnight. Overall improving. No new issues and no issues overnight. Physical Exam 2 Vital Signs (Past 24 Hours): Last Vital Signs Temp 36.9 C 05/11/18 16:01 Pulse 71 05/11/18 16:01 Resp 23 05/11/18 16:01 BP 130/80 05/11/18 16:01 Pulse Ox 93 05/11/18 16:01 Physical Exam: Morbidly obese, does not appear to be in any distress, vital signs are stable, 93% on room air, left IJ central line, S1-S2 regular rate and rhythm, distant breath sounds bilaterally, abdomen is obese but benign, edema in the periphery with skin changes noted. Neurologically she is intact. Results & Data Laboratory Results Labs were reviewed which showed normal white count, hematocrit of 36, platelets of 71 improving, PTT of 117. BUN and creatinine 56 and 1.7. Diagnostic Findings No new imaging.
[2018-05-11] MEDS ORDERED: GLUCAGON FOR INJ 1 MG VIAL IM PRN (21:37)
[2018-05-11] MEDS ORDERED: GLUCOSE 40% GEL 15 GM TUBE PO PRN (21:37)
[2018-05-11] MEDS ORDERED: DEXTROSE 50% 50 ML SYRINGE IV PRN (21:37)
[2018-05-11] MEDS ORDERED: CARBOHYDRATES FOR HYPOGLYCEMIA PO PRN (21:37)
[2018-05-11] MEDS ORDERED: GLUCOSE 10 TABS/TUBE PO PRN (21:37)
[2018-05-12] MEDS: INSULIN ASPART 100 UNITS/ML 3 ML PEN SC SCH ×6 (00:05→20:19)
[2018-05-12] MEDS: HydrALAZINE HCL 20 MG/ML VIAL IV SCH ×5 (04:06→20:18)
[2018-05-12] MEDS: FUROSEMIDE 20 MG in SYRINGE 0 ML IV SCH (05:50)
[2018-05-12] MEDS: OXYCODONE HCL IR 5 MG TAB (IMMEDIATE RELEASE) PO PRN (05:51)
[2018-05-12 06:42] LABS: Mean Corpuscular Hgb Conc 30.2 g/dL (32-36)
[2018-05-12 06:51] LABS: Hematocrit (blood only) 35.1 % (37-47); Hemoglobin 10.6 g/dL (12.0-16.0); Mean Corpuscular Volume 79.6 fL (80-100); RDW Coefficient of Variation 17.9 % (11.5-14.5); RDW Standard Deviation 51.4 fL (36.4-46.3); Red Blood Count 4.41 M/uL (4.2-5.4); White Blood Count 7.88 K/uL (4.8-10.8)
--- NOTE | 2018-05-12 07:11 | Nephrology Progress Note ---
Date of Service May 12, 2018 Assessment & Plan (1) Acute on chronic renal failure: her baseline is hard to quantify w/ the changes in her health and fluid status recently. Had had a baseline 1.3-1.5 creatinine when I last saw her 11/2017 just as BRCA dx 'd; more recently has been 1.0-1.1 but this in status of 20 lb wt gain most of which is likely water; I suspect her baseline euvolemic renal function remains 1.3-1.5 creatinine. diuresing VERY well w/ dobutamine and frequent low dose IV lasix>> agree w/ cutting back to 20 mg IV tid now; fortunately not oliguric; mild hyperkalemia noted; glucose w/ acceptable control; other chemistries acceptable for now -creatinine up to 1.7 yesterday; has been running 1.5-1.7 for 72 hrs; chemistries acceptable >> today's labs pending when I saw her and again show creat 1.7 -mag on lower side and will start po mag -still remains high risk for worsening renal failure given IV contrast, critical illness, obligate aggressive diuretics -monitor mag, bmp daily (2) Acute on chronic right heart failure: in setting of acute on chronic hypercapnic respiratory failure -appreciate cardiology recs -lowered iv lasix to 10 mg iv bid (3) Metastatic breast cancer: w/ bony mets, hypercalcemia, chronic thrombocytopenia, and chronic volume overload, BL DVT - pain control per primary svc Subjective seen on rounds this am 0740; ongoing issues w/ pain control lewis T spine. no sob , remains on RA. eating well; no f/c. no sob, no further confusion. edema better. large uop. Physical Exam 2 Vital Signs (Past 24 Hours): Last Vital Signs Temp 37.1 C 05/12/18 04:08 Pulse 58 L 05/12/18 04:08 Resp 19 05/12/18 04:08 BP 150/72 H 05/12/18 04:08 Pulse Ox 95 05/12/18 04:08 Constitutional: well developed, well nourished and + morbidly obese on RA A & 0 x3 Eyes: EOM intact bilaterally ENMT: Ears: no external ear abnormality Nose: no external nose abnormality Mouth: + dry oral mucous membranes Neck: no nuchal rigidity Respiratory: normal respiratory effort Auscultation: + diminished lung sounds (but slightly more air mvt today than yesterday on admission) Cardiovascular: Rate/Rhythm: regular rate (HS distant) and regular rhythm Extremities: + edema (trace distal BLE) Gastrointestinal (Abdomen): Inspection/Auscultation: normal bowel sounds Percussion/Palpation: abdomen soft; abdomen nontender Musculoskeletal: no cyanosis or clubbing, extremities motor strength 5/5 Extremities: strength 5/5 throughout Skin: no rashes, warm and dry + ulcer (LLE wrapped) Neurologic: rios, fluent speech Psychiatric: A+Ox3, euthymic affect Genitourinary: courtney present Results & Data Laboratory Results Abnormal lab results 05/11/18 05/11/18 05/11/18 Range/Units 19:26 20:05 20:26 Hgb (12.0-16.0) g/dL Hct (37-47) % MCV (80-100) fL MCH (25-34) pg MCHC (32-36) g/dL RDW Std Deviation (36.4-46.3) fL RDW Coeff of Flori (11.5-14.5) % Plt Count (130-400) K/uL Immature Gran # (Auto) (0.00-0.02) K/uL Neut # (Auto) (1.4-6.5) K/uL Lymph # (Auto) (1.2-3.4) K/uL BUN (7-18) mg/dl Creatinine (0.6-1.2) mg/dl BUN/Creatinine Ratio (10-20) Glucose (70-99) mg/dl POC Glucose 175 H 136 H 122 H (70-99) Calcium (8.5-10.1) mg/dl Magnesium (1.8-2.4) mg/dl 05/11/18 05/11/18 05/11/18 Range/Units 20:43 21:00 21:19 Hgb (12.0-16.0) g/dL Hct (37-47) % MCV (80-100) fL MCH (25-34) pg MCHC (32-36) g/dL RDW Std Deviation (36.4-46.3) fL RDW Coeff of Flori (11.5-14.5) % Plt Count (130-400) K/uL Immature Gran # (Auto) (0.00-0.02) K/uL Neut # (Auto) (1.4-6.5) K/uL Lymph # (Auto) (1.2-3.4) K/uL BUN (7-18) mg/dl Creatinine (0.6-1.2) mg/dl BUN/Creatinine Ratio (10-20) Glucose (70-99) mg/dl POC Glucose 135 H 131 H 128 H (70-99) Calcium (8.5-10.1) mg/dl Magnesium (1.8-2.4) mg/dl 05/12/18 05/12/18 05/12/18 Range/Units 00:03 04:03 06:07 Hgb 10.6 L (12.0-16.0) g/dL Hct 35.1 L (37-47) % MCV 79.6 L (80-100) fL MCH 24.0 L (25-34) pg MCHC 30.2 L (32-36) g/dL RDW Std Deviation 51.4 H (36.4-46.3) fL RDW Coeff of Flori 17.9 H (11.5-14.5) % Plt Count 83 L (130-400) K/uL Immature Gran # (Auto) 0.03 H (0.00-0.02) K/uL Neut # (Auto) 6.55 H (1.4-6.5) K/uL Lymph # (Auto) 0.88 L (1.2-3.4) K/uL BUN (7-18) mg/dl Creatinine (0.6-1.2) mg/dl BUN/Creatinine Ratio (10-20) Glucose (70-99) mg/dl POC Glucose 147 H 146 H (70-99) Calcium (8.5-10.1) mg/dl Magnesium (1.8-2.4) mg/dl 05/12/18 05/12/18 05/12/18 Range/Units 06:07 07:17 11:39 Hgb (12.0-16.0) g/dL Hct (37-47) % MCV (80-100) fL MCH (25-34) pg MCHC (32-36) g/dL RDW Std Deviation (36.4-46.3) fL RDW Coeff of Flori (11.5-14.5) % Plt Count (130-400) K/uL Immature Gran # (Auto) (0.00-0.02) K/uL Neut # (Auto) (1.4-6.5) K/uL Lymph # (Auto) (1.2-3.4) K/uL BUN 59 H (7-18) mg/dl Creatinine 1.74 H (0.6-1.2) mg/dl BUN/Creatinine Ratio 34.1 H (10-20) Glucose 134 H (70-99) mg/dl POC Glucose 128 H 112 H (70-99) Calcium 7.8 L (8.5-10.1) mg/dl Magnesium 1.6 L (1.8-2.4) mg/dl _ (1) Acute on chronic renal failure Acute renal failure type: unspecified Chronic kidney disease stage: stage 3 ( moderate) Qualified Code(s): N17.9 - Acute kidney failure, unspecified; N18.3 - Chronic kidney disease, stage 3 (moderate)
[2018-05-12 07:14] LABS: BUN Creatinine Ratio 34.1 (10-20); Calcium 7.8 mg/dl (8.5-10.1); Creatinine Clr Calc Pharmacy 49.1 ml/min; Est GFR (African American) 35.5; Est GFR (Non-African American) 30.7; Magnesium 1.6 mg/dl (1.8-2.4); Phosphorus 3.1 mg/dl (2.5-4.9); Potassium 3.9 mmol/L (3.5-5.1)
[2018-05-12 07:15] LABS: Eosinophils # (auto) 0.01 K/uL (0-0.5); Eosinophils % (auto) 0.1 %; Immature Granulocytes # (auto) 0.03 K/uL (0.00-0.02); Immature Granulocytes % (auto) 0.4 %; Lymphocytes # (auto) 0.88 K/uL (1.2-3.4); Lymphocytes % (auto) 11.2 %; Monocytes # (auto) 0.41 K/uL (0.11-0.59); Monocytes % (auto) 5.2 %; Neutrophils # (auto) 6.55 K/uL (1.4-6.5); Neutrophils % (auto) 83.1 %; Platelet Count 83 K/uL (130-400); Tear Drop Cells Occasional
[2018-05-12] MEDS: APIXABAN 5 MG TABLET PO SCH ×2 (08:49→20:15)
[2018-05-12] MEDS: ANASTROZOLE 1 MG TAB PO SCH (08:49)
[2018-05-12] MEDS: PANTOprazole 40 MG TAB PO SCH (08:49)
[2018-05-12] MEDS: FEXOFENADINE HCL 180 MG TAB PO SCH (08:49)
[2018-05-12] MEDS: AMOXICILLIN/CLAVULANATE 875 MG TAB PO SCH ×2 (08:49→17:28)
[2018-05-12] MEDS: dexAMETHasone 4 MG TAB PO SCH ×2 (08:50→20:16)
[2018-05-12] MEDS: METOPROLOL SUCC 25MG EXT REL TAB PO SCH ×2 (08:50→20:17)
[2018-05-12] MEDS: LOPERAMIDE HCL 2 MG CAP PO SCH ×4 (08:58→20:15)
[2018-05-12] MEDS: MICONAZOLE NITRATE POWDER 43 GM EXT SCH ×2 (08:59→22:37)
[2018-05-12] MEDS ORDERED: INSULIN GLARGINE SOLOSTAR 100 UNITS/ML 3 ML PEN SC SCH (09:00)
[2018-05-12] MEDS: MAGNESIUM OXIDE 400 MG TAB PO SCH ×2 (09:18→20:16)
--- NOTE | 2018-05-12 09:58 | Pharmacy Report ---
Pharmacy Glycemic Short Note 2 - Date of Service May 12, 2018 - Glycemic Short BSG Results (Last 24 hours): 05/11/18 05/11/18 05/11/18 10:17 11:44 12:46 Glucose POC Glucose 144 H 128 H 141 H 05/11/18 05/11/18 05/11/18 13:51 15:03 16:28 Glucose POC Glucose 153 H 145 H 124 H 05/11/18 05/11/18 05/11/18 17:39 18:28 19:26 Glucose POC Glucose 145 H 138 H 175 H 05/11/18 05/11/18 05/11/18 20:05 20:26 20:43 Glucose POC Glucose 136 H 122 H 135 H 05/11/18 05/11/18 05/12/18 21:00 21:19 00:03 Glucose POC Glucose 131 H 128 H 147 H 05/12/18 05/12/18 05/12/18 04:03 06:07 07:17 Glucose 134 H POC Glucose 146 H 128 H Outpatient Anti-diabetic Regimen: * Lantus 22 units SC qPM * Insulin aspart SC 3 units with each meal + 2 units for CF 50 once BSG > 150 * A1c = 7.5 % on 03/05/18, increased to 10.4% on 05/10/18 ASSESSMENT: 05/12/18: * Risk factors for insulin resistance have significantly decreased over the past 24 hours; patient extubated, dobutamine drip off, heparin drip off, and dexamethasone dose has been decreased to 2mg PO BID * IV insulin infusion was discontinued yesterday evening. BSG has been well controlled since that time. * Despite improvement in patients clinical condition, I anticipate continued need for aggressive insulin dosing due to continuation of dexamethasone. I will decrease basal insulin ~ 25% to 36 units qAM. This is similar to home dose + stress of 2. * Continue tight control with Novolog. May need to loosen slightly depending on lunch BSG. 04/2718: * 62 yo F admitted on 05/09/18 unresponsive and intubated, possibly 2nd glycemic crisis. Patient not in DKA but HHS a possibility. * Attempted to transition off drip yesterday - Lantus 50 units in AM successfully caused decrease in insulin drip rate from 6.5 to 2.7 units/hr over ~4-5 hours. However, patient was then ordered a diet. She consumed lunch but calculator did not indicate to cover CHO. A significant amount of CHO (61 g) consumed with dinner and was covered with Novolog, but only at a ratio of 8 g CHO/unit per insulin drip calculator. Patient had a small snack overnight of 13 g CHO - covered with 13 units Novolog. * Therefore, do not think the transition from IV to basal/bolus failed 2nd insufficiency of Lantus dosing, but rather insufficient CHO coverage in a patient on dexamethasone 4 mg po BID. * Will continue Lantus at previous dose yesterday * Will pre-select tighter CHO ratio (insulin drip calculator will go to a max of 5 g CHO/unit and this patient likely requires more) * Of note, A1c increased significantly over the last 3 months - per RN (Nikole) , patient's noted significant issues in the previous few weeks prior to admission, likely attributed to initiation of steroids for ITP. A1c is a reflection of BSG control over the previous 3 months, however, the most recent 2 weeks have a more significant impact on the value and therefore this suggests the profound impact of steroids on BSG for this patient * No surgical intervention anticipated with Dr. Cobb for IVC filter despite DVTs noted in both legs as these are considered stable and this time and therefore anticoagulation should be sufficient PLAN FOR INPATIENT GLYCEMIC CONTROL: * Basal Insulin - decrease * Lantus 36 units SQ qAM * Bolus Insulin * Novolog ACHS or q6 for NPO * Goal range: 120 to 160 mg/dL * Correction factor: 10 mg/dL/unit * Carb ratio: 1 unit for every 4 grams of CHO consumed PLAN FOR DISCHARGE: * Significant increase in A1c recently; 7.5 (03/05/18) -> 10.4 % (05/10/18) - likely due to starting steroid therapy for ITP * Outpatient regimen will be dependent on if patient is discharged on steroids
--- NOTE | 2018-05-12 10:58 | Cardiology Progress Note ---
Date of Service May 12, 2018 Assessment & Plan (1) Acute respiratory failure with hypoxia and hypercapnia: Initial respiratory failure likely related to benzodiazepines and narcotic medications in conjunction with mucous plugging with subsequent hypoxia and CO2 retention. Patient successfully extubated and recovering well. She is actively attempting to utilize CPAP at night. Working with respiratory therapy. (2) Acute on chronic right heart failure: Reduce IV Lasix to 20 mg twice daily. Repeat basic metabolic panel in a.m. Dobutamine infusion discontinued. Tolerating low-dose beta-juan therapy. Encouraged patient to attempt to utilize CPAP on a nightly basis. Indications for therapy reviewed. She also require oral diuretic therapy the time of discharge. Likely 10-20 mg of torsemide. Nephrology input appreciated. (3) Acute on chronic renal failure: Creatinine remained stable. Reduce Lasix as noted above. Nephrology input appreciated. Assess BMP daily. (4) Elevated troponin I level: Secondary to hypoxic /hypercapnic respiratory failure in the setting of possible CAP, mucous plugging, and right-sided heart failure. No left ventricular regional myocardial wall motion abnormalities on echocardiogram. (5) New onset right bundle branch block (RBBB): Suspect secondary to right ventricular pressure/volume overload. (6) Altered mental status: Secondary to hypoxic and hypercapnic respiratory failure, hyperglycemia, possible pneumonia/mucous plugging. 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 IV heparin discontinued and Eliquis restarted. (8) Thrombocytopenia: No overt signs of bleeding. Follow daily CBC. Subjective Patient seen and examined at the bedside. Diuresing significantly with IV Lasix. Creatinine remained stable today. Denies chest pain or shortness of breath. No dysrhythmias on telemetry. Edema improved. No signs/symptoms of GI / blood loss. Review of Systems All systems reviewed & are unremarkable except as noted in HPI & below Physical Exam 2 Vital Signs (Past 24 Hours): Last Vital Signs Temp 36.8 C 05/12/18 07:39 Pulse 66 05/12/18 07:39 Resp 20 05/12/18 07:39 BP 146/69 H 05/12/18 07:39 Pulse Ox 93 05/12/18 07:39 Physical Exam: General: awake and alert. NAD. Oriented x3. Morbidly obese. HEENT: Normocephalic. Atraumatic. Conjunctiva pink, no scleral icterus. Neck: No carotid bruits, the carotid upstrokes are brisk. Unable to assess JVD secondary to body habitus. Heart: Regular, bradycardic, distant heart sounds. Normal S-1 and S-2 no S-3 or S-4 gallop. No murmurs or rub appreciated. PMI is not displaced. Lungs: Clear bilateral. No rales, rhonchi, or wheeze. Abdomen : Obese. Normal bowel sounds. Soft. Nontender. No masses or organomegaly. No abdominal bruits. Extremities: Trace to mild bilateral pretibial pitting edema. + Left pretibial ulcer. No clubbing, or cyanosis. Pulses: radial=2/4, posterior tibial=2/4. Neuro: Cranial nerves grossly intact. No focal motor deficit. _ (1) DVT of lower extremity, bilateral Affected thrombotic vein of extremity: femoral Chronicity: acute Qualified Code(s): I82.413 - Acute embolism and thrombosis of femoral vein, bilateral (2) Altered mental status Altered mental status type: unspecified Coma depth: Coma timing: Qualified Code(s): R41.82 - Altered mental status, unspecified (3) Acute on chronic renal failure Acute renal failure type: unspecified Chronic kidney disease stage: stage 3 ( moderate) Qualified Code(s): N17.9 - Acute kidney failure, unspecified; N18.3 - Chronic kidney disease, stage 3 (moderate)
[2018-05-12] MEDS ORDERED: OXYCODONE HCL IR 5 MG TAB (IMMEDIATE RELEASE) PO PRN (11:36)
--- NOTE | 2018-05-12 12:17 | Hospitalist Progress Note ---
Date of Service May 12, 2018 Assessment & Plan (1) Acute respiratory failure with hypoxia and hypercapnia: Acute on chronic hypoxic and hypercapnic respiratory failure. Required intubation and mechanical ventilation. No overt pulmonary edema on chest x-ray. No definite pulmonary infiltrates. PE ruled out by CTA. Nonsmoker. Denies history of COPD or asthma. May have obesity hypoventilation syndrome, sleep apnea, obstructive airway disease. Extubated. Continue trials of BiPAP as tolerated. (2) Acute on chronic right heart failure: Echo showed dilated right ventricle with reduced EF. Acute PE ruled out by CTA. Acute on chronic right ventricular heart failure with reduced EF. Consider hypoventilation syndrome, sleep apnea, obstructive airway disease, chronic thromboembolic disease. (3) Elevated troponin I level: Serum troponin as high as Cardiology consulted. No left ventricular segmental wall motion abnormalities on echo. Elevated troponin could be secondary to respiratory failure or right-sided heart failure. (4) New onset right bundle branch block (RBBB): Attributed to RV strain. (5) DVT of lower extremity, bilateral: Prior history of DVT lower extremities. Had been treated with apixaban, but it was discontinued because of thrombocytopenia. Venous duplex 05/09/18 demonstrated extensive DVT in bilateral lower extremities , including proximal veins. Received IV heparin; transitioned to apixaban. Vascular Surgery consulted re: consideration of IVC filter. It was not recommended. (6) Acute kidney injury: CKD III with baseline creatinine of 0.89 on 03/06/18. Creatinine at time of admission 2.06. Acute kidney injury, probably due to respiratory failure and possible other contributing factors. Nephrology consulted. Creatinine today = 1.74. (7) CKD (chronic kidney disease), stage III: As noted above. (8) Altered mental status: CT head without acute findings. Probable encephalopathy secondary to respiratory failure and metabolic abnormalities. Resolved. (9) Hypertension: Managed with atenolol at home. BP's low in ED. Now on metoprolol succinate. Follow and titrate Rx. (10) DM type 2 (diabetes mellitus, type 2): Managed with insulin at home. Presented with random glucose of 469. Underlying physiologic stressors. Rule out infection. Need to clarify recent steroid use. Hgb A1C = 10.4. Pharmacy consulted for glycemic management. Managed with insulin infusion per protocol and transitioned to SQ insulin. (11) Morbid obesity: Wt 145 kg. BMI 51.6. AHA diet when able to resume oral nutrition. 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 Platelet count at time of admission 27,000. Hematology consulted. Platelet count today = 81,000. (13) Metastatic breast cancer: Invasive ductal carcinoma right breast with skeletal mets and hypercalcemia. Management per Heme / Onc. Severe back pain from skeletal mets. Patient concerned about side efffects from meds, but needs relief of pain. Options discussed. Try oxycodone SR 10 mg BID + oxy IR 5 q 6 hrs PRN + duloxetine 30 mg daily. (14) DVT prophylaxis: Management of acute DVT as discussed above. (15) Discharge planning issues: Discharge disposition to be determined. Primary care follow-up with Dr. Goodwin. Subjective Recheck for multiple problems. Patient seen in her room around 1120. Overall, doing much better. Did not try BiPAP last night. Ongoing severe back pain from metastatic breast Ca. Wants relief of pain, but does not want to be doped up. No fever. Occasional cough. No chest pain. No nausea or vomiting. No melena or hematochezia. Physical Exam 2 Vital Signs (Past 24 Hours): Last Vital Signs Temp 36.8 C 05/12/18 07:39 Pulse 66 05/12/18 07:39 Resp 20 05/12/18 07:39 BP 146/69 H 05/12/18 07:39 Pulse Ox 92 05/12/18 10:45 Constitutional: + morbidly obese; no acute distress Eyes: + anicteric sclerae Respiratory: no respiratory distress Auscultation: + rhonchi (few) Cardiovascular: Rate/Rhythm: regular rate and regular rhythm Heart Sounds: no gallop and no murmur Vessels: + JVD Extremities: + edema (2-3+ pretibial) Gastrointestinal (Abdomen): Percussion/Palpation: abdomen soft; abdomen nontender Skin: + rash (moderate erythema bilat legs) Genitourinary: + abnormal external appearance (Ta cath) Results & Data Laboratory Results Short CBC 05/12/18 Range/Units 06:07 WBC 7.88 (4.8-10.8) K/uL Hgb 10.6 L (12.0-16.0) g/dL Hct 35.1 L (37-47) % Plt Count 83 L (130-400) K/uL BMP 05/12/18 06:07 Sodium 139 Potassium 3.9 Chloride 101 Carbon Dioxide 32 BUN 59 H Creatinine 1.74 H Glucose 134 H Calcium 7.8 L _ (1) DVT of lower extremity, bilateral Affected thrombotic vein of extremity: femoral Chronicity: acute Qualified Code(s): I82.413 - Acute embolism and thrombosis of femoral vein, bilateral (2) Altered mental status Altered mental status type: unspecified Coma depth: Coma timing: Qualified Code(s): R41.82 - Altered mental status, unspecified
[2018-05-12] MEDS: DULOXETINE HCL 30 MG CAP PO SCH (12:46)
[2018-05-12] MEDS: OXYCODONE HCL 10 MG TABCR (OXYCONTIN) PO SCH (12:46)
[2018-05-12] MEDS ORDERED: FUROSEMIDE 20 MG in SYRINGE 0 ML IV SCH (17:00)
[2018-05-12] MEDS: MAGNESIUM CHLORIDE 64MG DELAYED REL TAB PO SCH (20:25)
[2018-05-13] MEDS: HydrALAZINE HCL 20 MG/ML VIAL IV SCH ×5 (00:03→13:16)
[2018-05-13] MEDS: OXYCODONE HCL 10 MG TABCR (OXYCONTIN) PO SCH ×3 (00:05→21:21)
[2018-05-13 07:10] LABS: BUN Creatinine Ratio 41.1 (10-20); Calcium 7.7 mg/dl (8.5-10.1); Creatinine Clr Calc Pharmacy 55.3 ml/min; Est GFR (African American) 42.9; Potassium 4.2 mmol/L (3.5-5.1)
[2018-05-13] MEDS: MAGNESIUM CHLORIDE 64MG DELAYED REL TAB PO SCH ×2 (08:13→21:16)
[2018-05-13] MEDS: dexAMETHasone 4 MG TAB PO SCH ×2 (08:13→21:15)
[2018-05-13] MEDS: FEXOFENADINE HCL 180 MG TAB PO SCH (08:14)
[2018-05-13] MEDS: ANASTROZOLE 1 MG TAB PO SCH (08:14)
[2018-05-13] MEDS: AMOXICILLIN/CLAVULANATE 875 MG TAB PO SCH ×2 (08:14→17:18)
[2018-05-13] MEDS: PANTOprazole 40 MG TAB PO SCH (08:15)
[2018-05-13] MEDS: DULOXETINE HCL 30 MG CAP PO SCH (08:15)
[2018-05-13] MEDS: MICONAZOLE NITRATE POWDER 43 GM EXT SCH ×2 (08:15→21:17)
[2018-05-13] MEDS: METOPROLOL SUCC 25MG EXT REL TAB PO SCH ×2 (08:16→21:21)
[2018-05-13] MEDS: INSULIN ASPART 100 UNITS/ML 3 ML PEN SC SCH ×4 (08:18→21:21)
[2018-05-13] MEDS: APIXABAN 5 MG TABLET PO SCH ×2 (08:19→21:16)
[2018-05-13] MEDS: LOPERAMIDE HCL 2 MG CAP PO SCH ×4 (08:19→21:16)
[2018-05-13] MEDS ORDERED: FUROSEMIDE 10 MG in SYRINGE 0 ML IV SCH ×2 (09:00→17:00)
[2018-05-13] MEDS ORDERED: INSULIN GLARGINE SOLOSTAR 100 UNITS/ML 3 ML PEN SC ONE (09:00)
[2018-05-13] MEDS: SODIUM CHLORIDE 0.65% NA SOLN 45 ML (OCEAN) SCH ×3 (12:44→21:21)
--- NOTE | 2018-05-13 12:57 | Cardiology Progress Note ---
Date of Service May 13, 2018 Assessment & Plan (1) Acute respiratory failure with hypoxia and hypercapnia: s/ VDRF. Clinically improving. Working with respiratory therapy to utilize CPAP. (2) Acute on chronic right heart failure: Appreciate nephrology input. Creatinine down to 1.49 today. Lasix reduced to 10 mg twice daily. We will continue to follow fluid balance, daily weight, GFR, and electrolytes daily. Likely transition to oral torsemide or furosemide for maintenance therapy in the outpatient setting. Continue low- dose beta-juan. (3) Acute on chronic renal failure: Creatinine down to 1.49 today. Reduce Lasix as noted above. Nephrology input appreciated. Assess BMP daily. (4) Elevated troponin I level: Secondary to hypoxic /hypercapnic respiratory failure in the setting of possible CAP, mucous plugging, and right-sided heart failure. No left ventricular regional myocardial wall motion abnormalities on echocardiogram. (5) New onset right bundle branch block (RBBB): Suspect secondary to right ventricular pressure/volume overload. (6) Altered mental status: Secondary to hypoxic and hypercapnic respiratory failure, hyperglycemia, possible pneumonia/mucous plugging. 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 IV heparin discontinued and Eliquis restarted. (8) Thrombocytopenia: No overt signs of bleeding. Platelet count trending upward. Follow daily CBC. Subjective Patient seen and examined at the bedside. Reports an episode of epistaxis overnight. Episode was self-limiting. Notes mild nausea attributed to postnasal drip. Denies chest pain or shortness of breath. Edema improved. Fluid balance markedly negative with significant weight loss since admission. Remains in sinus rhythm on telemetry. Review of Systems All systems reviewed & are unremarkable except as noted in HPI & below Physical Exam 2 Vital Signs (Past 24 Hours): Last Vital Signs Temp 36.5 C 05/13/18 12:20 Pulse 62 05/13/18 12:20 Resp 16 05/13/18 12:20 BP 128/72 05/13/18 12:20 Pulse Ox 95 05/13/18 12:20 Physical Exam: General: awake and alert. NAD. Oriented x3. Morbidly obese. HEENT: Normocephalic. Atraumatic. Conjunctiva pink, no scleral icterus. Neck: No carotid bruits, the carotid upstrokes are brisk. Unable to assess JVD secondary to body habitus. Heart: Regular, bradycardic, distant heart sounds. Normal S-1 and S-2 no S-3 or S-4 gallop. No murmurs or rub appreciated. PMI is not displaced. Lungs: Clear bilateral. No rales, rhonchi, or wheeze. Abdomen : Obese. Normal bowel sounds. Soft. Nontender. No masses or organomegaly. No abdominal bruits. Extremities: Trace to mild bilateral pretibial pitting edema. + Left pretibial ulcer. No clubbing, or cyanosis. Pulses: radial=2/4, posterior tibial=2/4. Neuro: Cranial nerves grossly intact. No focal motor deficit. _ (1) DVT of lower extremity, bilateral Affected thrombotic vein of extremity: femoral Chronicity: acute Qualified Code(s): I82.413 - Acute embolism and thrombosis of femoral vein, bilateral (2) Altered mental status Altered mental status type: unspecified Coma depth: Coma timing: Qualified Code(s): R41.82 - Altered mental status, unspecified (3) Acute on chronic renal failure Acute renal failure type: unspecified Chronic kidney disease stage: stage 3 ( moderate) Qualified Code(s): N17.9 - Acute kidney failure, unspecified; N18.3 - Chronic kidney disease, stage 3 (moderate)
--- NOTE | 2018-05-13 14:22 | Pharmacy Report ---
Pharmacy Glycemic Short Note 2 - Date of Service May 13, 2018 - Glycemic Short BSG Results (Last 24 hours): 05/12/18 05/12/18 05/12/18 16:29 20:18 21:32 Glucose POC Glucose 91 80 118 H 05/13/18 05/13/18 05/13/18 00:04 06:20 07:35 Glucose 129 H POC Glucose 115 H 138 H 05/13/18 11:42 Glucose POC Glucose 119 H Outpatient Anti-diabetic Regimen: * Lantus 22 units SC qPM * Insulin aspart SC 3 units with each meal + 2 units for CF 50 once BSG > 150 * A1c = 7.5 % on 03/05/18, increased to 10.4% on 05/10/18 ASSESSMENT: 05/13/18: * Ms. Kimble continues to take dexamethasone 2mg BID. * She received a total of 68 units of insulin yesterday (36 units of basal) * Pt's fasting bsg is within goal range today. Loosened CF and CR for lunchtime bsg checks to prevent hypoglycemic episode since a few of her bsg's over the past 24 hours have been below goal range. 05/12/18: * Risk factors for insulin resistance have significantly decreased over the past 24 hours; patient extubated, dobutamine drip off, heparin drip off, and dexamethasone dose has been decreased to 2mg PO BID * IV insulin infusion was discontinued yesterday evening. BSG has been well controlled since that time. * Despite improvement in patients clinical condition, I anticipate continued need for aggressive insulin dosing due to continuation of dexamethasone. I will decrease basal insulin ~ 25% to 36 units qAM. This is similar to home dose + stress of 2. * Continue tight control with Novolog. May need to loosen slightly depending on lunch BSG. 04/2718: * 62 yo F admitted on 05/09/18 unresponsive and intubated, possibly 2nd glycemic crisis. Patient not in DKA but HHS a possibility. * Attempted to transition off drip yesterday - Lantus 50 units in AM successfully caused decrease in insulin drip rate from 6.5 to 2.7 units/hr over ~4-5 hours. However, patient was then ordered a diet. She consumed lunch but calculator did not indicate to cover CHO. A significant amount of CHO (61 g) consumed with dinner and was covered with Novolog, but only at a ratio of 8 g CHO/unit per insulin drip calculator. Patient had a small snack overnight of 13 g CHO - covered with 13 units Novolog. * Therefore, do not think the transition from IV to basal/bolus failed 2nd insufficiency of Lantus dosing, but rather insufficient CHO coverage in a patient on dexamethasone 4 mg po BID. * Will continue Lantus at previous dose yesterday * Will pre-select tighter CHO ratio (insulin drip calculator will go to a max of 5 g CHO/unit and this patient likely requires more) * Of note, A1c increased significantly over the last 3 months - per RN (Nikole) , patient's noted significant issues in the previous few weeks prior to admission, likely attributed to initiation of steroids for ITP. A1c is a reflection of BSG control over the previous 3 months, however, the most recent 2 weeks have a more significant impact on the value and therefore this suggests the profound impact of steroids on BSG for this patient * No surgical intervention anticipated with Dr. Cobb for IVC filter despite DVTs noted in both legs as these are considered stable and this time and therefore anticoagulation should be sufficient PLAN FOR INPATIENT GLYCEMIC CONTROL: * Basal Insulin * Lantus 36 units SQ qAM * Bolus Insulin - loosened CF and CR * Novolog ACHS or q6 for NPO * Goal range: 120 to 160 mg/dL * Correction factor: 15 mg/dL/unit * Carb ratio: 1 unit for every 5 grams of CHO consumed PLAN FOR DISCHARGE: * Significant increase in A1c recently; 7.5 (03/05/18) -> 10.4 % (05/10/18) - likely due to starting steroid therapy for ITP * Outpatient regimen will be dependent on if patient is discharged on steroids
--- NOTE | 2018-05-13 16:14 | Nephrology Progress Note ---
Date of Service May 13, 2018 Assessment & Plan (1) Acute on chronic renal failure: her baseline is hard to quantify w/ the changes in her health and fluid status recently. Had had a baseline 1.3-1.5 creatinine when I last saw her 11/2017 just as BRCA dx 'd; more recently has been 1.0-1.1 but this in status of 20 lb wt gain most of which is likely water; I suspect her baseline euvolemic renal function remains 1.3-1.5 creatinine. diuresed VERY well w/ dobutamine and frequent low dose IV lasix -chemistries acceptable for now > cont po mag -daily bmp and mag pls -creatinine has been running 1.5-1.7 for several days; chemistries acceptable > > today's labs at 1.5 creat -wrote tomorrow change to torsemide 20 mg daily from iv lasix bid -remove courtney next 24-48 hrs (2) Acute on chronic right heart failure: in setting of acute on chronic hypercapnic respiratory failure -appreciate cardiology recs - see above re diuretics (3) Metastatic breast cancer: w/ bony mets, hypercalcemia, chronic thrombocytopenia, and chronic volume overload, BL DVT - pain control per primary svc Subjective seen on rounds 1600; on ra, pain better controlled, no sob. feels edema cont to improve, no n, no d; remains w/ courtney Physical Exam 2 Vital Signs (Past 24 Hours): Last Vital Signs Temp 36.6 C 05/13/18 15:38 Pulse 51 L 05/13/18 15:38 Resp 18 05/13/18 15:38 BP 145/73 H 05/13/18 15:38 Pulse Ox 92 05/13/18 15:38 Constitutional: well developed, well nourished and + morbidly obese on RA sitting in bed Eyes: EOM intact bilaterally ENMT: Ears: no external ear abnormality Nose: no external nose abnormality Mouth: + dry oral mucous membranes Neck: no nuchal rigidity Respiratory: normal respiratory effort Auscultation: + diminished lung sounds Cardiovascular: Rate/Rhythm: regular rate (HS distant) and regular rhythm Extremities: + edema (trace distal BLE) Gastrointestinal (Abdomen): Inspection/Auscultation: normal bowel sounds Percussion/Palpation: abdomen soft; abdomen nontender Musculoskeletal: no cyanosis or clubbing, extremities motor strength 5/5 Extremities: strength 5/5 throughout Skin: no rashes, warm and dry + ulcer (LLE wrapped) Neurologic: rios, fluent speech Psychiatric: A+Ox3, euthymic affect Genitourinary: courtney w/ ample light yellow urine Results & Data Laboratory Results Abnormal lab results 05/12/18 05/13/18 05/13/18 Range/Units 21:32 00:04 06:20 BUN 61 H (7-18) mg/dl Creatinine 1.49 H (0.6-1.2) mg/dl BUN/Creatinine Ratio 41.1 H (10-20) Glucose 129 H (70-99) mg/dl POC Glucose 118 H 115 H (70-99) Calcium 7.7 L (8.5-10.1) mg/dl 05/13/18 05/13/18 Range/Units 07:35 11:42 BUN (7-18) mg/dl Creatinine (0.6-1.2) mg/dl BUN/Creatinine Ratio (10-20) Glucose (70-99) mg/dl POC Glucose 138 H 119 H (70-99) Calcium (8.5-10.1) mg/dl _ (1) Acute on chronic renal failure Acute renal failure type: unspecified Chronic kidney disease stage: stage 3 ( moderate) Qualified Code(s): N17.9 - Acute kidney failure, unspecified; N18.3 - Chronic kidney disease, stage 3 (moderate)
--- NOTE | 2018-05-14 03:54 | Hospitalist Progress Note ---
Date of Service May 13, 2018 Assessment & Plan (1) Acute respiratory failure with hypoxia and hypercapnia: Acute on chronic hypoxic and hypercapnic respiratory failure. Required intubation and mechanical ventilation. No overt pulmonary edema on chest x-ray. No definite pulmonary infiltrates. PE ruled out by CTA. Nonsmoker. Denies history of COPD or asthma. May have obesity hypoventilation syndrome, sleep apnea, obstructive airway disease. Extubated. Continue trials of BiPAP as tolerated. (2) Acute on chronic right heart failure: Echo showed dilated right ventricle with reduced EF. Acute PE ruled out by CTA. Acute on chronic right ventricular heart failure with reduced EF. Consider hypoventilation syndrome, sleep apnea, obstructive airway disease, chronic thromboembolic disease. (3) Elevated troponin I level: Serum troponin as high as Cardiology consulted. No left ventricular segmental wall motion abnormalities on echo. Elevated troponin could be secondary to respiratory failure or right-sided heart failure. (4) New onset right bundle branch block (RBBB): Attributed to RV strain. (5) DVT of lower extremity, bilateral: Prior history of DVT lower extremities. Had been treated with apixaban, but it was discontinued because of thrombocytopenia. Venous duplex 05/09/18 demonstrated extensive DVT in bilateral lower extremities , including proximal veins. Received IV heparin; transitioned to apixaban. (6) Acute kidney injury: CKD III with baseline creatinine of 0.89 on 03/06/18. Creatinine at time of admission 2.06. Acute kidney injury, probably due to respiratory failure and possible other contributing factors. Nephrology consulted. Creatinine today = 1.49. (7) CKD (chronic kidney disease), stage III: As noted above. (8) Altered mental status: CT head without acute findings. Probable encephalopathy secondary to respiratory failure and metabolic abnormalities (hyperglycemia, etc). Resolved. (9) Hypertension: Managed with atenolol at home. BP's low in ED. Now on metoprolol succinate. Follow and titrate Rx. (10) DM type 2 (diabetes mellitus, type 2): Managed with insulin at home. Presented with random glucose of 469. Underlying physiologic stressors. Rule out infection. Need to clarify recent steroid use. Hgb A1C = 10.4. Pharmacy consulted for glycemic management. Managed with insulin infusion per protocol and transitioned to SQ insulin. FBS today = 138. (11) Morbid obesity: Wt 145 kg. BMI 51.6. AHA diet when able to resume oral nutrition. 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 Platelet count at time of admission 27,000. Hematology consulted. Platelet count yesterday = 83,000. (13) Metastatic breast cancer: Invasive ductal carcinoma right breast with skeletal mets and hypercalcemia. Management per Heme / Onc. Severe back pain from skeletal mets. Patient concerned about side efffects from meds, but needs relief of pain. Options discussed. Started oxycodone SR 10 mg BID + oxy IR 5 q 6 hrs PRN + duloxetine 30 mg daily. Pain improved. (14) DVT prophylaxis: Management of acute DVT as discussed above. (15) Discharge planning issues: Discharge disposition to be determined. Primary care follow-up with Dr. Goodwin. Heme / Onc follow-up with Dr. Christophe Light. Subjective Recheck for multiple problems. Patient seen in her room around 0935. Back pain better on new regimen. Got some rest last night. No fever. Occasional cough. No SOB. No chest pain. No nausea or vomiting. Chronic loose stools. No melena or hematochezia. Physical Exam 2 Vital Signs (Past 24 Hours): Last Vital Signs Temp 36.4 C L 05/13/18 23:42 Pulse 56 L 05/14/18 00:00 Resp 21 05/13/18 23:42 BP 148/79 H 05/13/18 23:42 Pulse Ox 97 05/13/18 23:42 Constitutional: + morbidly obese; no acute distress Eyes: + anicteric sclerae Respiratory: no respiratory distress Cardiovascular: Rate/Rhythm: regular rate and regular rhythm Heart Sounds: no gallop and no murmur Vessels: + JVD Extremities: + edema (2-3+ pretibial) Gastrointestinal (Abdomen): Percussion/Palpation: abdomen soft; abdomen nontender Skin: + rash (moderate erythema bilat legs) Genitourinary: + abnormal external appearance (Ta cath) Results & Data Laboratory Results [facility] 05/13/18 06:20 Sodium 139 Potassium 4.2 Chloride 103 Carbon Dioxide 31 BUN 61 H Creatinine 1.49 H Glucose 129 H Calcium 7.7 L _ (1) DVT of lower extremity, bilateral Affected thrombotic vein of extremity: femoral Chronicity: acute Qualified Code(s): I82.413 - Acute embolism and thrombosis of femoral vein, bilateral (2) Altered mental status Altered mental status type: unspecified Coma depth: Coma timing: Qualified Code(s): R41.82 - Altered mental status, unspecified
[2018-05-14 05:47] LABS: Mean Corpuscular Hgb Conc 29.5 g/dL (32-36)
[2018-05-14 05:50] LABS: Hematocrit (blood only) 38.6 % (37-47); Hemoglobin 11.4 g/dL (12.0-16.0); Mean Corpuscular Volume 80.9 fL (80-100); RDW Coefficient of Variation 17.7 % (11.5-14.5); RDW Standard Deviation 52.1 fL (36.4-46.3); Red Blood Count 4.77 M/uL (4.2-5.4); White Blood Count 7.28 K/uL (4.8-10.8)
[2018-05-14 06:24] LABS: BUN Creatinine Ratio 42.2 (10-20); Calcium 7.5 mg/dl (8.5-10.1); Creatinine Clr Calc Pharmacy 57.5 ml/min; Est GFR (African American) 45.1; Est GFR (Non-African American) 38.9; Potassium 4.4 mmol/L (3.5-5.1)
[2018-05-14 06:41] LABS: Platelet Count 98 K/uL (130-400)
[2018-05-14] MEDS: INSULIN ASPART 100 UNITS/ML 3 ML PEN SC SCH ×4 (08:22→21:30)
[2018-05-14] MEDS: LOPERAMIDE HCL 2 MG CAP PO SCH ×4 (08:23→21:29)
[2018-05-14] MEDS: PANTOprazole 40 MG TAB PO SCH (08:23)
[2018-05-14] MEDS: METOPROLOL SUCC 25MG EXT REL TAB PO SCH ×2 (08:23→21:32)
[2018-05-14] MEDS: dexAMETHasone 4 MG TAB PO SCH ×2 (08:24→21:31)
[2018-05-14] MEDS: AMOXICILLIN/CLAVULANATE 875 MG TAB PO SCH ×2 (08:24→17:24)
[2018-05-14] MEDS: MAGNESIUM CHLORIDE 64MG DELAYED REL TAB PO SCH ×2 (08:24→21:30)
[2018-05-14] MEDS: APIXABAN 5 MG TABLET PO SCH ×2 (08:24→21:31)
[2018-05-14] MEDS: DULOXETINE HCL 30 MG CAP PO SCH (08:24)
[2018-05-14] MEDS: TORSEMIDE 20 MG TAB PO SCH (08:26)
[2018-05-14] MEDS: FEXOFENADINE HCL 180 MG TAB PO SCH (08:26)
[2018-05-14] MEDS: MICONAZOLE NITRATE POWDER 43 GM EXT SCH ×2 (08:26→21:33)
[2018-05-14] MEDS: ANASTROZOLE 1 MG TAB PO SCH (08:26)
[2018-05-14] MEDS: SODIUM CHLORIDE 0.65% NA SOLN 45 ML (OCEAN) SCH ×4 (08:28→21:29)
[2018-05-14] MEDS: OXYCODONE HCL 10 MG TABCR (OXYCONTIN) PO SCH ×2 (08:30→21:30)
[2018-05-14] MEDS ORDERED: INSULIN GLARGINE SOLOSTAR 100 UNITS/ML 3 ML PEN SC ONE (09:00)
--- NOTE | 2018-05-14 09:13 | Nephrology Progress Note ---
Date of Service May 14, 2018 Assessment & Plan (1) Acute on chronic renal failure: her baseline is hard to quantify w/ the changes in her health and fluid status recently. Had had a baseline 1.3-1.5 creatinine when I last saw her 11/2017 just as BRCA dx 'd; more recently has been 1.0-1.1 but this in status of 20 lb wt gain most of which is likely water; I suspect her baseline euvolemic renal function remains 1.3-1.5 creatinine. diuresed VERY well w/ dobutamine and frequent low dose IV lasix >>at thsi point consider KARLIE resolved and CKD at baseline -chemistries acceptable for now > cont po mag -daily bmp and mag pls -creatinine has been running 1.5-1.7 for several days; chemistries acceptable > > today's labs at 1.4 creat -today started torsemide 20 mg daily -remove courtney next 24-48 hrs -will sign off -would d/c on above torsemide -am working at setting up f/u w/ me in CKD clinic in 4 wks in [facility] [place] or [place] -recommend daily wt, cont FR 1.8L, low Na diet at d/c -recommend weekly bmp x 4 wks after d/c >> pt states will do these at [facility] >>>recommend HF teaching re wts (not sure she can do those at home but pls facilitate if possible), FR, low Na Subjective changed to po diuretics today; courtney still in but to come out soon. no sob, feels edema markedly better willing to get labs as [facility] [place] Physical Exam 2 Vital Signs (Past 24 Hours): Last Vital Signs Temp 36.8 C 05/14/18 04:04 Pulse 63 05/14/18 04:04 Resp 20 05/14/18 04:04 BP 145/82 H 05/14/18 04:04 Pulse Ox 95 05/14/18 04:04 Constitutional: well developed, well nourished and + morbidly obese A&0 x 3 morbidly obese Eyes: EOM intact bilaterally ENMT: Ears: no external ear abnormality Nose: no external nose abnormality Mouth: + dry oral mucous membranes Neck: no nuchal rigidity Respiratory: normal respiratory effort Auscultation: + diminished lung sounds Cardiovascular: Rate/Rhythm: regular rate (HS distant) and regular rhythm Extremities: + edema (trace distal BLE) Gastrointestinal (Abdomen): Inspection/Auscultation: normal bowel sounds Percussion/Palpation: abdomen soft; abdomen nontender Musculoskeletal: no cyanosis or clubbing, extremities motor strength 5/5 Extremities: strength 5/5 throughout Skin: no rashes, warm and dry + ulcer (LLE wrapped) Neurologic: rios fluent speech Psychiatric: A+Ox3, euthymic affect Results & Data Laboratory Results Abnormal lab results 05/13/18 05/13/18 05/13/18 Range/Units 11:42 16:26 20:25 Hgb (12.0-16.0) g/dL MCH (25-34) pg MCHC (32-36) g/dL RDW Std Deviation (36.4-46.3) fL RDW Coeff of Flori (11.5-14.5) % Plt Count (130-400) K/uL BUN (7-18) mg/dl Creatinine (0.6-1.2) mg/dl BUN/Creatinine Ratio (10-20) Glucose (70-99) mg/dl POC Glucose 119 H 281 H 138 H (70-99) Calcium (8.5-10.1) mg/dl 05/14/18 05/14/18 05/14/18 Range/Units 05:32 05:32 07:18 Hgb 11.4 L (12.0-16.0) g/dL MCH 23.9 L (25-34) pg MCHC 29.5 L (32-36) g/dL RDW Std Deviation 52.1 H (36.4-46.3) fL RDW Coeff of Flori 17.7 H (11.5-14.5) % Plt Count 98 L (130-400) K/uL BUN 60 H (7-18) mg/dl Creatinine 1.43 H (0.6-1.2) mg/dl BUN/Creatinine Ratio 42.2 H (10-20) Glucose 130 H (70-99) mg/dl POC Glucose 145 H (70-99) Calcium 7.5 L (8.5-10.1) mg/dl _ (1) Acute on chronic renal failure Acute renal failure type: unspecified Chronic kidney disease stage: stage 3 ( moderate) Qualified Code(s): N17.9 - Acute kidney failure, unspecified; N18.3 - Chronic kidney disease, stage 3 (moderate)
--- NOTE | 2018-05-14 10:37 | Cardiology Progress Note ---
Date of Service May 14, 2018 Assessment & Plan (1) Acute respiratory failure with hypoxia and hypercapnia: s/ VDRF. Clinically improving. Working with respiratory therapy to utilize CPAP QHS. (2) Acute on chronic right heart failure: Creatinine trending downward. Patient transition to oral torsemide. Edema improved with negative fluid balance since admission. Encouraged compliance with CPAP. Continue low-dose beta-juan. Lasix reduced to 10 mg twice daily. We will continue to follow fluid balance, daily weight, GFR, and electrolytes daily. Likely transition to oral torsemide or furosemide for maintenance therapy in the outpatient setting. Continue low-dose beta-juan. (3) Acute on chronic renal failure: Creatinine trending downward. Patient transition to oral diuretic therapy. Nephrology input appreciated. Assess BMP daily. (4) Elevated troponin I level: Secondary to hypoxic /hypercapnic respiratory failure in the setting of possible CAP, mucous plugging, and right-sided heart failure. No left ventricular regional myocardial wall motion abnormalities on echocardiogram. (5) New onset right bundle branch block (RBBB): Suspect secondary to right ventricular pressure/volume overload. (6) DVT of lower extremity, bilateral: Management as per hematology in setting of ITP. IV heparin discontinued and Eliquis restarted. (7) Thrombocytopenia: No overt signs of bleeding. Platelet count trending upward. Follow daily CBC. Subjective Patient seen and examined at the bedside. Voices frustration with her lack of mobility. Ta catheter remains in place. Reports history of urinary incontinence at home. Typically wears absorbent pads. Denies chest pain or shortness of breath. No dysrhythmias on telemetry. No recurrent epistaxis overnight. Tolerating diet and medications. Diuretics transition to oral formulation. Renal function improving. Platelet count trending upward. Review of Systems All systems reviewed & are unremarkable except as noted in HPI & below Physical Exam 2 Vital Signs (Past 24 Hours): Last Vital Signs Temp 36.7 C 05/14/18 10:17 Pulse 71 05/14/18 10:17 Resp 16 05/14/18 10:17 BP 151/73 H 05/14/18 10:17 Pulse Ox 94 05/14/18 10:17 Physical Exam: General: awake and alert. NAD. Oriented x3. Morbidly obese. HEENT: Normocephalic. Atraumatic. Conjunctiva pink, no scleral icterus. Neck: No carotid bruits, the carotid upstrokes are brisk. Unable to assess JVD secondary to body habitus. Heart: Regular, bradycardic, distant heart sounds. Normal S-1 and S-2 no S-3 or S-4 gallop. No murmurs or rub appreciated. PMI is not displaced. Lungs: Clear bilateral. No rales, rhonchi, or wheeze. Abdomen : Obese. Normal bowel sounds. Soft. Nontender. No masses or organomegaly. No abdominal bruits. Extremities: Trace to mild bilateral pretibial pitting edema. + Left pretibial ulcer. No clubbing, or cyanosis. Pulses: radial=2/4, posterior tibial=2/4. Neuro: Cranial nerves grossly intact. No focal motor deficit. _ (1) DVT of lower extremity, bilateral Affected thrombotic vein of extremity: femoral Chronicity: acute Qualified Code(s): I82.413 - Acute embolism and thrombosis of femoral vein, bilateral (2) Acute on chronic renal failure Acute renal failure type: unspecified Chronic kidney disease stage: stage 3 ( moderate) Qualified Code(s): N17.9 - Acute kidney failure, unspecified; N18.3 - Chronic kidney disease, stage 3 (moderate)
--- NOTE | 2018-05-14 20:24 | Hospitalist Progress Note ---
Date of Service May 14, 2018 Assessment & Plan (1) Acute respiratory failure with hypoxia and hypercapnia: Acute on chronic hypoxic and hypercapnic respiratory failure. Required intubation and mechanical ventilation. No overt pulmonary edema on chest x-ray. No definite pulmonary infiltrates. PE ruled out by CTA. Nonsmoker. Denies history of COPD or asthma. May have obesity hypoventilation syndrome, sleep apnea, obstructive airway disease. Extubated. Continue trials of BiPAP as tolerated. (2) Acute on chronic right heart failure: Echo showed dilated right ventricle with reduced EF. Acute PE ruled out by CTA. Acute on chronic right ventricular heart failure with reduced EF. Consider hypoventilation syndrome, sleep apnea, obstructive airway disease, chronic thromboembolic disease. (3) Elevated troponin I level: Serum troponin as high as Cardiology consulted. No left ventricular segmental wall motion abnormalities on echo. Elevated troponin could be secondary to respiratory failure or right-sided heart failure. (4) New onset right bundle branch block (RBBB): Attributed to RV strain. (5) DVT of lower extremity, bilateral: Prior history of DVT lower extremities. Had been treated with apixaban, but it was discontinued because of thrombocytopenia. Venous duplex 05/09/18 demonstrated extensive DVT in bilateral lower extremities , including proximal veins. Received IV heparin; transitioned to apixaban. (6) Acute kidney injury: CKD III with baseline creatinine of 0.89 on 03/06/18. Creatinine at time of admission 2.06. Acute kidney injury, probably due to respiratory failure and possible other contributing factors. Nephrology consulted. Creatinine today = 1.43. (7) CKD (chronic kidney disease), stage III: As noted above. (8) Altered mental status: CT head without acute findings. Probable encephalopathy secondary to respiratory failure and metabolic abnormalities (hyperglycemia, etc). Resolved. (9) Hypertension: Managed with atenolol at home. BP's low in ED. Now on metoprolol succinate. Follow and titrate Rx. (10) DM type 2 (diabetes mellitus, type 2): Managed with insulin at home. Presented with random glucose of 469. Underlying physiologic stressors. Rule out infection. Need to clarify recent steroid use. Hgb A1C = 10.4. Pharmacy consulted for glycemic management. Managed with insulin infusion per protocol and transitioned to SQ insulin. FBS today = 145. (11) Morbid obesity: Wt 145 kg. BMI 51.6. AHA diet when able to resume oral nutrition. 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 Platelet count at time of admission 27,000. Hematology consulted. Platelet count today = 98,000. (13) Metastatic breast cancer: Invasive ductal carcinoma right breast with skeletal mets and hypercalcemia. Management per Heme / Onc. Severe back pain from skeletal mets. Patient concerned about side efffects from meds, but needs relief of pain. Options discussed. Started oxycodone SR 10 mg BID + oxy IR 5 q 6 hrs PRN + duloxetine 30 mg daily. Pain improved. (14) DVT prophylaxis: Management of acute DVT as discussed above. (15) Discharge planning issues: Discharge disposition to be determined. Primary care follow-up with Dr. Goodwin. Heme / Onc follow-up with Dr. Christophe Light. Subjective Recheck for multiple problems. Patient seen in her room around 1640. No new problems. No fever. Occasional cough. No SOB. No chest pain. No nausea or vomiting. Chronic loose stools. No melena or hematochezia. Back pain improved. Physical Exam 2 Vital Signs (Past 24 Hours): Last Vital Signs Temp 36.6 C 05/14/18 19:17 Pulse 66 05/14/18 19:17 Resp 20 05/14/18 19:17 BP 140/75 05/14/18 19:17 Pulse Ox 93 05/14/18 19:17 Constitutional: + morbidly obese; no acute distress Eyes: + anicteric sclerae Respiratory: normal respiratory effort, lungs clear to auscultation no respiratory distress Cardiovascular: Rate/Rhythm: regular rate and regular rhythm Heart Sounds: no gallop and no murmur Vessels: + JVD Extremities: + edema (2-3+ pretibial) Gastrointestinal (Abdomen): Percussion/Palpation: abdomen soft; abdomen nontender Skin: + rash (moderate erythema bilat legs) Genitourinary: + abnormal external appearance (Ta cath) Results & Data Laboratory Results Short CBC 05/14/18 Range/Units 05:32 WBC 7.28 (4.8-10.8) K/uL Hgb 11.4 L (12.0-16.0) g/dL Hct 38.6 (37-47) % Plt Count 98 L (130-400) K/uL BMP 05/14/18 05:32 Sodium 138 Potassium 4.4 Chloride 103 Carbon Dioxide 30 BUN 60 H Creatinine 1.43 H Glucose 130 H Calcium 7.5 L _ (1) DVT of lower extremity, bilateral Affected thrombotic vein of extremity: femoral Chronicity: acute Qualified Code(s): I82.413 - Acute embolism and thrombosis of femoral vein, bilateral (2) Altered mental status Altered mental status type: unspecified Coma depth: Coma timing: Qualified Code(s): R41.82 - Altered mental status, unspecified
[2018-05-15 06:29] LABS: Mean Corpuscular Hgb Conc 29.4 g/dL (32-36)
[2018-05-15 06:33] LABS: Hematocrit (blood only) 39.1 % (37-47); Hemoglobin 11.5 g/dL (12.0-16.0); Mean Corpuscular Volume 82.5 fL (80-100); RDW Coefficient of Variation 17.5 % (11.5-14.5); Red Blood Count 4.74 M/uL (4.2-5.4); White Blood Count 8.96 K/uL (4.8-10.8)
[2018-05-15 07:02] LABS: Platelet Count 111 K/uL (130-400)
[2018-05-15 07:06] LABS: BUN Creatinine Ratio 41.3 (10-20); Calcium 8.1 mg/dl (8.5-10.1); Creatinine Clr Calc Pharmacy 55.2 ml/min; Est GFR (African American) 43.6; Est GFR (Non-African American) 37.6
[2018-05-15] MEDS: INSULIN ASPART 100 UNITS/ML 3 ML PEN SC SCH ×4 (08:13→22:27)
[2018-05-15] MEDS: ANASTROZOLE 1 MG TAB PO SCH (08:14)
[2018-05-15] MEDS: PANTOprazole 40 MG TAB PO SCH (08:14)
[2018-05-15] MEDS: DULOXETINE HCL 30 MG CAP PO SCH (08:14)
[2018-05-15] MEDS: METOPROLOL SUCC 25MG EXT REL TAB PO SCH ×2 (08:14→22:26)
[2018-05-15] MEDS: FEXOFENADINE HCL 180 MG TAB PO SCH (08:15)
[2018-05-15] MEDS: dexAMETHasone 4 MG TAB PO SCH ×2 (08:15→22:26)
[2018-05-15] MEDS: APIXABAN 5 MG TABLET PO SCH ×2 (08:16→22:27)
[2018-05-15] MEDS: MAGNESIUM CHLORIDE 64MG DELAYED REL TAB PO SCH ×2 (08:16→22:27)
[2018-05-15] MEDS: AMOXICILLIN/CLAVULANATE 875 MG TAB PO SCH ×2 (08:16→17:50)
[2018-05-15] MEDS: SODIUM CHLORIDE 0.65% NA SOLN 45 ML (OCEAN) SCH ×4 (08:17→22:28)
[2018-05-15] MEDS: MICONAZOLE NITRATE POWDER 43 GM EXT SCH ×2 (08:17→22:28)
[2018-05-15] MEDS: LOPERAMIDE HCL 2 MG CAP PO SCH ×4 (08:17→22:25)
[2018-05-15] MEDS: TORSEMIDE 20 MG TAB PO SCH (08:17)
[2018-05-15] MEDS: OXYCODONE HCL 10 MG TABCR (OXYCONTIN) PO SCH ×2 (08:18→22:25)
[2018-05-15] MEDS ORDERED: INSULIN GLARGINE SOLOSTAR 100 UNITS/ML 3 ML PEN SC ONE (09:45)
--- NOTE | 2018-05-15 13:50 | Pharmacy Report ---
Pharmacy Glycemic Short Note 2 - Date of Service May 15, 2018 - Glycemic Short BSG Results (Last 24 hours): 05/14/18 05/14/18 05/15/18 16:27 20:37 06:08 Glucose 130 H POC Glucose 120 H 121 H 05/15/18 05/15/18 07:08 11:09 Glucose POC Glucose 123 H 150 H Outpatient Anti-diabetic Regimen: * Lantus 22 units SC qPM * Insulin aspart SC 3 units with each meal + 2 units for CF 50 once BSG > 150 * A1c = 7.5 % on 03/05/18, increased to 10.4% on 05/10/18 ASSESSMENT: BSGs over the previous 24hrs largely euglycemic, [id number]/dL. She required 62 units of insulin yesterday, 05/14/18. Roughly 60/40 basal/bolus. DXM 2mg PO BID continues. Will continue with standing insulin orders. PLAN FOR INPATIENT GLYCEMIC CONTROL: * Basal Insulin * Lantus 36 units SQ qAM * Bolus Insulin - * Novolog ACHS or q6 for NPO * Goal range: 120 to 160 mg/dL * Correction factor: 15 mg/dL/unit * Carb ratio: 1 unit for every 5 grams of CHO consumed PLAN FOR DISCHARGE: * Significant increase in A1c recently; 7.5 (03/05/18) -> 10.4 % (05/10/18) - likely due to starting steroid therapy for ITP * Outpatient regimen will be dependent on if patient is discharged on steroids
--- NOTE | 2018-05-15 20:13 | Hospitalist Progress Note ---
Date of Service May 15, 2018 Assessment & Plan (1) Acute respiratory failure with hypoxia and hypercapnia: Acute on chronic hypoxic and hypercapnic respiratory failure. Required intubation and mechanical ventilation. No overt pulmonary edema on chest x-ray. No definite pulmonary infiltrates. PE ruled out by CTA. Nonsmoker. Denies history of COPD or asthma. May have obesity hypoventilation syndrome, sleep apnea, obstructive airway disease. Extubated. BiPAP attempted, but not tolerated. (2) Acute on chronic right heart failure: Echo showed dilated right ventricle with reduced EF. Acute PE ruled out by CTA. Acute on chronic right ventricular heart failure with reduced EF. Consider hypoventilation syndrome, sleep apnea, obstructive airway disease, chronic thromboembolic disease. Check nocturnal pulse oximetry. Outpatient sleep study recommended. (3) Elevated troponin I level: Serum troponin as high as Cardiology consulted. No left ventricular segmental wall motion abnormalities on echo. Elevated troponin could be secondary to respiratory failure or right-sided heart failure. (4) New onset right bundle branch block (RBBB): Attributed to RV strain. (5) DVT of lower extremity, bilateral: Prior history of DVT lower extremities. Had been treated with apixaban, but it was discontinued because of thrombocytopenia. Venous duplex 05/09/18 demonstrated extensive DVT in bilateral lower extremities , including proximal veins. Received IV heparin; transitioned to apixaban. (6) Acute kidney injury: CKD III with baseline creatinine of 0.89 on 03/06/18. Creatinine at time of admission 2.06. Acute kidney injury, probably due to respiratory failure and possible other contributing factors. Nephrology consulted. Creatinine today = 1.47. (7) CKD (chronic kidney disease), stage III: As noted above. (8) Altered mental status: CT head without acute findings. Probable encephalopathy secondary to respiratory failure and metabolic abnormalities (hyperglycemia, etc). Resolved. (9) Hypertension: Managed with atenolol at home. BP's low in ED. Now on metoprolol succinate. Follow and titrate Rx. (10) DM type 2 (diabetes mellitus, type 2): Managed with insulin at home. Presented with random glucose of 469. Underlying physiologic stressors. Rule out infection. Need to clarify recent steroid use. Hgb A1C = 10.4. Pharmacy consulted for glycemic management. Managed with insulin infusion per protocol and transitioned to SQ insulin. FBS today = 123. (11) Morbid obesity: Wt 145 kg. BMI 51.6. AHA diet when able to resume oral nutrition. 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 Platelet count at time of admission 27,000. Hematology consulted. Platelet count today = 111,000. (13) Metastatic breast cancer: Invasive ductal carcinoma right breast with skeletal mets and hypercalcemia. Management per Heme / Onc. Severe back pain from skeletal mets. Patient concerned about side efffects from meds, but needs relief of pain. Options discussed. Started oxycodone SR 10 mg BID + oxy IR 5 q 6 hrs PRN + duloxetine 30 mg daily. Pain improved. (14) Sinusitis: Noted on CT head. Received IV antibiotics. Transitioned to oral therapy with amoxicillin / clavulanic acid. (15) DVT prophylaxis: Management of acute DVT as discussed above. (16) Discharge planning issues: Discharge disposition to be determined. Primary care follow-up with Dr. Goodwin. Heme / Onc follow-up with Dr. Christophe Light. Subjective Recheck for multiple problems. Patient seen in her room around 1630. Her was visiting. Didn't get much sleep last night. Anxious to go home tomorrow. No fever. Occasional cough. No SOB. No chest pain. No nausea or vomiting. Chronic loose stools. No melena or hematochezia. Back pain improved. Physical Exam 2 Vital Signs (Past 24 Hours): Last Vital Signs Temp 37.0 C 05/15/18 19:37 Pulse 66 05/15/18 19:37 Resp 18 05/15/18 19:37 BP 175/90 H 05/15/18 19:37 Pulse Ox 92 05/15/18 19:37 Constitutional: + morbidly obese; no acute distress Eyes: + anicteric sclerae Respiratory: normal respiratory effort, lungs clear to auscultation no respiratory distress Cardiovascular: Rate/Rhythm: regular rate and regular rhythm Heart Sounds: no gallop and no murmur Vessels: + JVD Extremities: + edema (2-3+ pretibial) Gastrointestinal (Abdomen): Percussion/Palpation: abdomen soft; abdomen nontender Skin: + rash (moderate erythema bilat legs) Genitourinary: + abnormal external appearance (Ta cath) _ (1) DVT of lower extremity, bilateral Affected thrombotic vein of extremity: femoral Chronicity: acute Qualified Code(s): I82.413 - Acute embolism and thrombosis of femoral vein, bilateral (2) Altered mental status Altered mental status type: unspecified Coma depth: Coma timing: Qualified Code(s): R41.82 - Altered mental status, unspecified
[2018-05-16 07:09] LABS: Mean Corpuscular Hgb Conc 29.6 g/dL (32-36)
[2018-05-16 07:30] LABS: Hematocrit (blood only) 37.1 % (37-47); Mean Corpuscular Volume 82.4 fL (80-100); RDW Coefficient of Variation 17.7 % (11.5-14.5); RDW Standard Deviation 52.7 fL (36.4-46.3); White Blood Count 9.37 K/uL (4.8-10.8)
[2018-05-16 07:33] LABS: Platelet Count 107 K/uL (130-400)
[2018-05-16 07:48] LABS: BUN Creatinine Ratio 46.6 (10-20); Calcium 7.4 mg/dl (8.5-10.1); Creatinine Clr Calc Pharmacy 61.2 ml/min; Est GFR (African American) 50.6; Est GFR (Non-African American) 43.6
[2018-05-16] MEDS: MAGNESIUM CHLORIDE 64MG DELAYED REL TAB PO SCH (08:40)
[2018-05-16] MEDS: APIXABAN 5 MG TABLET PO SCH (08:40)
[2018-05-16] MEDS: METOPROLOL SUCC 25MG EXT REL TAB PO SCH (08:40)
[2018-05-16] MEDS: dexAMETHasone 4 MG TAB PO SCH (08:40)
[2018-05-16] MEDS: PANTOprazole 40 MG TAB PO SCH (08:40)
[2018-05-16] MEDS: DULOXETINE HCL 30 MG CAP PO SCH (08:40)
[2018-05-16] MEDS: LOPERAMIDE HCL 2 MG CAP PO SCH ×2 (08:41→13:17)
[2018-05-16] MEDS: FEXOFENADINE HCL 180 MG TAB PO SCH (08:41)
[2018-05-16] MEDS: TORSEMIDE 20 MG TAB PO SCH (08:41)
[2018-05-16] MEDS: AMOXICILLIN/CLAVULANATE 875 MG TAB PO SCH (08:42)
[2018-05-16] MEDS: ANASTROZOLE 1 MG TAB PO SCH (08:42)
[2018-05-16] MEDS: INSULIN ASPART 100 UNITS/ML 3 ML PEN SC SCH ×2 (08:43→13:07)
[2018-05-16] MEDS ORDERED: INSULIN GLARGINE SOLOSTAR 100 UNITS/ML 3 ML PEN SC SCH (09:00)
[2018-05-16] MEDS: SODIUM CHLORIDE 0.65% NA SOLN 45 ML (OCEAN) SCH ×2 (09:20→13:17)
[2018-05-16] MEDS: OXYCODONE HCL 10 MG TABCR (OXYCONTIN) PO SCH (09:20)
[2018-05-16] MEDS: MICONAZOLE NITRATE POWDER 43 GM EXT SCH (09:20)
--- NOTE | 2018-05-16 14:25 | Cardiology Progress Note ---
Date of Service May 16, 2018 Assessment & Plan (1) Acute on chronic right heart failure: Creatinine trending downward. Continue oral torsemide. Consider addition of Aldactone possibly in the outpatient setting pending review of follow-up lab studies. Patient working with respiratory therapy to utilize CPAP. (2) Acute respiratory failure with hypoxia and hypercapnia: Patient admitted with acute hypoxic and hypercapnic respiratory failure in the setting of right heart failure. She has improved significantly with diuretic therapy and medical management. Discussed importance of utilizing CPAP consistently. (3) Acute on chronic renal failure: Creatinine trending downward. (4) Elevated troponin I level: Secondary to hypoxic /hypercapnic respiratory failure in the setting of possible CAP, mucous plugging, and right-sided heart failure. No left ventricular regional myocardial wall motion abnormalities on echocardiogram. (5) DVT of lower extremity, bilateral: Management as per hematology in setting of ITP. IV heparin discontinued and Eliquis restarted. (6) Thrombocytopenia: No overt signs of bleeding. Platelet count remains stable. Appreciate hematology input. Subjective Patient seen and examined at the bedside. Ta catheter remains in place. Patient agreeable to removal of Ta catheter at the time of discharge. Notes a history of urinary incontinence. Denies chest pain or shortness of breath. Continues to diurese. Participating in physical therapy. Offers no new concerns/complaints at this time. Review of Systems All systems reviewed & are unremarkable except as noted in HPI & below Physical Exam 2 Vital Signs (Past 24 Hours): Last Vital Signs Temp 36.6 C 05/16/18 13:25 Pulse 106 H 05/16/18 13:25 Resp 16 05/16/18 13:25 BP 142/75 H 05/16/18 13:25 Pulse Ox 91 05/16/18 13:25 Physical Exam: General: awake and alert. NAD. Oriented x3. Morbidly obese. HEENT: Normocephalic. Atraumatic. Conjunctiva pink, no scleral icterus. Neck: No carotid bruits, the carotid upstrokes are brisk. Unable to assess JVD secondary to body habitus. Heart: Regular, bradycardic, distant heart sounds. Normal S-1 and S-2 no S-3 or S-4 gallop. No murmurs or rub appreciated. PMI is not displaced. Lungs: Clear bilateral. No rales, rhonchi, or wheeze. Abdomen : Obese. Normal bowel sounds. Soft. Nontender. No masses or organomegaly. No abdominal bruits. Extremities: Trace to mild bilateral pretibial pitting edema. + Left pretibial ulcer. No clubbing, or cyanosis. Pulses: radial=2/4, posterior tibial=2/4. Neuro: Cranial nerves grossly intact. No focal motor deficit. _ (1) Acute on chronic renal failure Acute renal failure type: unspecified Chronic kidney disease stage: stage 3 ( moderate) Qualified Code(s): N17.9 - Acute kidney failure, unspecified; N18.3 - Chronic kidney disease, stage 3 (moderate) (2) DVT of lower extremity, bilateral Affected thrombotic vein of extremity: femoral Chronicity: acute Qualified Code(s): I82.413 - Acute embolism and thrombosis of femoral vein, bilateral
--- NOTE | 2018-05-16 15:45 | Hospitalist Progress Note ---
Date of Service May 16, 2018 Assessment & Plan (1) Acute respiratory failure with hypoxia and hypercapnia: Acute on chronic hypoxic and hypercapnic respiratory failure. Required intubation and mechanical ventilation. No overt pulmonary edema on chest x-ray. No definite pulmonary infiltrates. PE ruled out by CTA. Nonsmoker. Denies history of COPD or asthma. May have obesity hypoventilation syndrome, sleep apnea, obstructive airway disease. Extubated. BiPAP attempted, but not tolerated. Nocturnal pulse oximetry demonstrated significant hypoxia- started on O2 2 LPM at night. Outpatient sleep study with CPAP or BiPAP trial recommended. (2) Acute on chronic right heart failure: Echo showed dilated right ventricle with reduced EF. Acute PE ruled out by CTA. Acute on chronic right ventricular heart failure with reduced EF. Consider hypoventilation syndrome, sleep apnea, obstructive airway disease, chronic thromboembolic disease. Nocturnal pulse oximetry demonstrated significant hypoxia- started on O2 2 LPM at night. Outpatient sleep study recommended. (3) Elevated troponin I level: Serum troponin as high as Cardiology consulted. No left ventricular segmental wall motion abnormalities on echo. Elevated troponin could be secondary to respiratory failure or right-sided heart failure. (4) New onset right bundle branch block (RBBB): Attributed to RV strain. (5) DVT of lower extremity, bilateral: Prior history of DVT lower extremities. Had been treated with apixaban, but it was discontinued because of thrombocytopenia. Venous duplex 05/09/18 demonstrated extensive DVT in bilateral lower extremities , including proximal veins. Different perspectives whether or not DVT's at this time were stable or with extension. Vascular Surgery felt that IVC filter not indicated. Received IV heparin; transitioned to apixaban. (6) Acute kidney injury: CKD III with baseline creatinine of 0.89 on 03/06/18. Creatinine at time of admission 2.06. Acute kidney injury, probably due to respiratory failure and possible other contributing factors. Nephrology consulted. Creatinine day of discharge 1.30. (7) CKD (chronic kidney disease), stage III: As noted above. (8) Altered mental status: CT head without acute findings. Probable encephalopathy secondary to respiratory failure and metabolic abnormalities (hyperglycemia, etc). Resolved. (9) Hypertension: Managed with atenolol at home. BP's low in ED. Now on metoprolol succinate. Follow and titrate Rx. (10) DM type 2 (diabetes mellitus, type 2): Managed with insulin at home. Presented with random glucose of 469. Underlying physiologic stressors. Rule out infection. Need to clarify recent steroid use. Hgb A1C = 10.4. Pharmacy consulted for glycemic management. Managed with insulin infusion per protocol and transitioned to SQ insulin. FBS day of discharge 122. (11) Morbid obesity: Wt 145 kg. BMI 51.6. AHA / diabetic diet. 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 Platelet count at time of admission 27,000. Hematology consulted. Platelet count today = 107,000. Discharge on dexamethasone 2 mg daily x 7 days. Follow. (13) Metastatic breast cancer: Invasive ductal carcinoma right breast with skeletal mets and hypercalcemia. Management per Heme / Onc. Severe back pain from skeletal mets. Patient concerned about side efffects from meds, but needs relief of pain. Options discussed. Started oxycodone SR 10 mg BID + oxy IR 5 q 6 hrs PRN + duloxetine 30 mg daily. Pain improved. (14) Sinusitis: Noted on CT head. Received IV antibiotics. Transitioned to oral therapy with amoxicillin / clavulanic acid and completed course of therapy. (15) DVT prophylaxis: Management of acute DVT as discussed above. (16) Discharge planning issues: Discharge to home with home health nursing. Patient requested primary care follow-up with Dr. Larry. Heme / Onc follow-up with Dr. Christophe Light. Follow-up with [facility]. Subjective Recheck for multiple problems. Anxious to go home. No fever. No cough. No SOB. No chest pain. No nausea or vomiting. Chronic loose stools. No melena or hematochezia. Back pain improved. Physical Exam 2 Vital Signs (Past 24 Hours): Last Vital Signs Temp 36.6 C 05/16/18 13:25 Pulse 106 H 05/16/18 13:25 Resp 16 05/16/18 13:25 BP 142/75 H 05/16/18 13:25 Pulse Ox 91 05/16/18 13:25 Constitutional: + morbidly obese; no acute distress Eyes: + anicteric sclerae Respiratory: normal respiratory effort, lungs clear to auscultation no respiratory distress Cardiovascular: Rate/Rhythm: regular rate and regular rhythm Heart Sounds: no gallop and no murmur Vessels: + JVD Extremities: + edema (2-3+ pretibial) Gastrointestinal (Abdomen): Percussion/Palpation: abdomen soft; abdomen nontender _ (1) DVT of lower extremity, bilateral Affected thrombotic vein of extremity: femoral Chronicity: acute Qualified Code(s): I82.413 - Acute embolism and thrombosis of femoral vein, bilateral (2) Altered mental status Altered mental status type: unspecified Coma depth: Coma timing: Qualified Code(s): R41.82 - Altered mental status, unspecified
--- NOTE | 2018-05-19 05:02 | Discharge Summary ---
Date of Service Date of admission: 05/09/18 Date of discharge: 05/16/18 Admission HPI Per Admitting Provider This is a 62-year-old female with past medical history significant for type 2 diabetes insulin-dependent, history of allergic rhinitis, hypertension, morbid obesity, irritable bowel syndrome, panic disorder, and endometriosis. The patient was diagnosed with metastatic breast cancer, invasive ductal carcinoma grade 1, ER and WI receptor positive on November 2017 with bony metastatic disease and hypercalcemia. She was started on Arimidex 1 mg daily from November 2017 and also started on Xgeva for hypercalcemia every 4 weeks and she was also diagnosed with bilateral lower extremity DVTs. She had a last echo in February and there was no PE on the CAT scan at the time and she was placed on Eliquis as per hematology/oncology recommendations. 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 She recently saw heme/onc on 05/01/2018. At that time, the lab work showed platelets of 43 and heme/onc advised to check labs within a week and to continue Eliquis for now until the labs next week and if the platelets drop less than 30s, to stop the Eliquis and place her on steroids.Patient got labs done in [place] on May 06 and the patient received a call on that platelets were 33 and she needs to be stopped Eliquis and take Decadron 10 mg daily for 4 days, which the patient took Decadron 10 mg daily for 2 days and also stopped the Eliquis. On 05/09/2018 in the evening, sugars were okay at 7:00 as per , but around 9:00, her sugars were running high and she was getting confused on and off. She tried to give extra insulin, but the insulin pen needle seemed to bended and does not know whether she got her insulin or not and the EMS was called and blood sugars were running high she seems to be passed out and her blood pressure was low at that time, she was intubated and brought into the ER. Currently respiration, the patient is status post intubation and sedated with Diprivan and also she was hard stick, so left IJ central line was placed. Labs showed hyperkalemia with potassium of 5.3, platelets are 27, Blood sugars in 400s, but there was no acidosis and procalcitonin level was normal. The patient is not in DKA, BNP is elevated, chest x-ray done, does not look overloaded. She also has echo done in 10/2016, which showed right heart failure with moderately dilated right ventricle and right ventricular pressure overload. She has chronic lower extremity edema since she was diagnosed with DVTs and has some weeping there and some superficial skin ulcers. Lower extremities are slightly erythematous, but her says that they are same for the last few months. says otherwise, her appetite was not that great, Can walk with help of a walker and denied any pain. Denied any chest pain. She has ongoing diarrhea. No fevers or cough. cooks food for her. Apparently, she was doing okay until this happened. Could not get any review of symptoms as the patient is currently intubated. Admission Exam Per Admitting Provider GENERAL: The patient is currently intubated and sedated, morbidly obese. VITAL SIGNS: Temperature 36.5, pulse 52, respiratory rate 20, blood pressure 150/80, oxygen 100% mechanical vent. HEENT: No pallor, no icterus. Pupils equal, round, and react to light. NECK: Status post left IJ, no neck masses seen. CARDIOVASCULAR: S1, S2 heard, regular rate and rhythm, no murmur, no gallop. RESPIRATORY SYSTEM: Normal AP diameter. No accessory muscle use. No wheezing, no crackles. ABDOMEN: Soft, bowel sounds present. No distention seen. CENTRAL NERVOUS SYSTEM: Currently status post sedation and intubated. EXTREMITIES: Bilateral lower extremity chronic skin changes present with mild erythematous changes and left superficial skin ulcers seen over the left ankle. Principal Diagnosis acute hypoxic and hypercapneic respiratory failure acute on chronic right-sided CHF altered mental status, metabolic encephalopathy sinusitis possible lower respiratory tract infection DM type 2 with hyperglycemia acute kidney injury metastatic breast Ca with mets to spine DVT bilat lower extremities- present on admission thrombocytopenia nocturnal hypoxia Discharge Data Allergies Allergy/AdvReac Type Severity Reaction Status Date / Time gabapentin AdvReac Hallucinati Verified 05/09/18 03:34 ng Consultations 05/09/18 03:34 ED Decision to Admit Stat 05/09/18 04:17 Consult [employer] Stat 05/09/18 06:23 Consult Case Management - Discharge Planning Routine Consult [employer] Routine 05/09/18 07:41 Consult Cardiology Routine 05/09/18 10:18 Consult Hematology Routine 05/09/18 10:42 Consult Nephrology Routine 05/09/18 11:05 Consult Vascular Surgery Routine Procedures Performed Operation Date: 05/09/18 11:30 <No data on this case meets the specified criteria> Ordered Studies 05/09/18 03:58 CT abd pelvis IV con only Urgent CT angio chest PE protocol Urgent CT head/brain wo con Urgent 05/09/18 11:31 US venous doppler LE Urgent Hospital Course (1) Acute respiratory failure with hypoxia and hypercapnia: Acute on chronic hypoxic and hypercapnic respiratory failure. Required intubation and mechanical ventilation. No overt pulmonary edema on chest x-ray. No definite pulmonary infiltrates. PE ruled out by CTA. Extubated. BiPAP attempted, but not tolerated. Nonsmoker. No history of COPD or asthma. May have obesity hypoventilation syndrome, sleep apnea, obstructive airway disease. Nocturnal pulse oximetry demonstrated significant hypoxia- started on O2 2 LPM at night. Outpatient sleep study with CPAP or BiPAP trial recommended. (2) Acute on chronic right heart failure: Echo showed dilated right ventricle with reduced EF. Acute PE ruled out by CTA. Acute on chronic right ventricular heart failure with reduced EF. Consider hypoventilation syndrome, sleep apnea, obstructive airway disease, chronic thromboembolic disease. Nocturnal pulse oximetry demonstrated significant hypoxia- started on O2 2 LPM at night. Outpatient sleep study recommended. (3) Elevated troponin I level: Serum troponin as high as Cardiology consulted. No left ventricular segmental wall motion abnormalities on echo. Elevated troponin could be secondary to respiratory failure or right-sided heart failure. (4) New onset right bundle branch block (RBBB): Attributed to RV strain. (5) DVT of lower extremity, bilateral: Prior history of DVT lower extremities. Had been treated with apixaban, but it was discontinued because of thrombocytopenia. Venous duplex 05/09/18 demonstrated extensive DVT in bilateral lower extremities , including proximal veins. Different perspectives whether or not DVT's at this time were stable or with extension. Vascular Surgery felt that IVC filter not indicated. Received IV heparin; transitioned to apixaban. (6) Acute kidney injury: CKD III with baseline creatinine of 0.89 on 03/06/18. Creatinine at time of admission 2.06. Acute kidney injury, probably due to respiratory failure and possible other contributing factors. Nephrology consulted. Creatinine day of discharge 1.30. (7) CKD (chronic kidney disease), stage III: As noted above. (8) Altered mental status: CT head without acute findings. Probable encephalopathy secondary to respiratory failure and metabolic abnormalities (hyperglycemia, etc). Resolved. (9) Hypertension: Managed with atenolol at home. BP's low in ED. Now on metoprolol succinate. Follow and titrate Rx. (10) DM type 2 (diabetes mellitus, type 2): Managed with insulin at home. Presented with random glucose of 469. Underlying physiologic stressors. Rule out infection. Need to clarify recent steroid use. Hgb A1C = 10.4. Pharmacy consulted for glycemic management. Managed with insulin infusion per protocol and transitioned to SQ insulin. FBS day of discharge 122. (11) Morbid obesity: Wt 145 kg. BMI 51.6. AHA / diabetic diet. 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 Platelet count at time of admission 27,000. Hematology consulted. Platelet count today = 107,000. Discharge on dexamethasone 2 mg daily x 7 days. Follow. (13) Metastatic breast cancer: Invasive ductal carcinoma right breast with skeletal mets and hypercalcemia. Management per Heme / Onc. Severe back pain from skeletal mets. Patient concerned about side efffects from meds, but needs relief of pain. Options discussed. Started oxycodone SR 10 mg BID + oxy IR 5 q 6 hrs PRN + duloxetine 30 mg daily. Pain improved. (14) Sinusitis: Noted on CT head. Received IV antibiotics. Transitioned to oral therapy with amoxicillin / clavulanic acid and completed course of therapy. (15) DVT prophylaxis: Management of acute DVT as discussed above. (16) Discharge planning issues: Discharge to home with home health nursing. Patient requested primary care follow-up with Dr. Larry. Heme / Onc follow-up with Dr. Christophe Light. Follow-up with [facility]. Total Time Total Time Spent Total Time Spent (In Minutes): 60 Discharge Plan Discharge Items Patient Disposition: Home - Home Health Services Reason For Visit: high blood sugars, confusion, difficulty breathing Discharge Diagnosis: diabetes with high blood sugars from dexamethasone right-sided congestive heart failure breast cancer with back pain low platelet count sinus infection blood clots in legs low oxygen levels while sleeping Condition: Fair Discharge Goals: Decrease discomfort, Improve disease control and Improve function Activity: Resume your previous activity Non-emergency contact: Primary Care Provider and Oncologist Call non-emergency contact if: you have any medication questions, your symptoms worsen and your pain is not controlled Follow-up/Referrals: Kylah Madsen MD, PhD [Physician] - Lucio Larry MD [Physician] - (05/22/2018 11:20 AM Lucio Larry MD General Internal Medicine [facility]) Azael Vallejo DO [Clinical Applications Specialist] - (Office will contact you with appointment.) Christophe Light MD [Family Provider] - Diet: Carb Consistent or DM2 and Heart Healthy Fluids: 1800ml (7 cups) Addtl Provider Instructions: OTHER INSTRUCTIONS: Wear oxygen 2 liters/minute while sleeping. New instructions for Lantus: Take it it the morning. BLOOD SUGAR LANTUS DOSE under 81 none 81-150 24 units 151-200 30 units above 200 36 units Seek medical attention if you have: * temperature above 101 * chest pain or trouble breathing * abdominal pain, nausea, vomiting * diarrhea, dark stools or bloody stools * any unanswered questions or concerns Call 911 if symptoms are severe. Call if you have any questions or problems. My cell # is [phone]. You can also reach a [facility] hospitalist on duty at [facility] 24 hours a day by calling [phone]. INSTRUCTIONS FOR DVT (blood clots in legs): Call your Doctor if you experience any of the following: * Swelling or Pain in your leg * Sudden, continuous pain deep in a muscle * Pain that worsens when you are active or when you stand still for a long time * Chest Pain * Sudden Shortness of Breath * Rapid or pounding heart beat * Fainting * Dizziness * Cough with blood or bloody sputum * Sweating more than normal * Bruises * heavy or uncontrolled bleeding * Blood in your urine, stool or vomit * Black or tarry stools Caring for Your Self at Home: * Avoid sitting, standing or lying down for long periods without moving your legs and feet * When traveling by car, stop to get out and move around at least once every 3 hours * On long airplane, train or bus rides, get up and move around when possible * If you can't get up, wiggle your toes and tighten your calves to keep your blood moving Follow Up: * It is important for you to keep your follow up appointments with your medical provider. Prescriptions: New torsemide 20 mg tablet 20 mg PO DAILY Qty: 30 RF: 5 dexamethasone 2 mg tablet 2 mg PO DAILY Qty: 7 RF: 0 pantoprazole 40 mg tablet,delayed release (DR/EC) 40 mg PO DAILY Qty: 30 RF: 5 duloxetine 30 mg capsule,delayed release(DR/EC) 30 mg PO DAILY Qty: 30 RF: 5 insulin glargine [Lantus Solostar U-100 Insulin] 100 unit/mL (3 mL) insulin pen See Label Instructions .ROUTE .COMPLEX Qty: 15 RF: 5 metoprolol succinate 25 mg capsule,sprinkle,ER 24hr 25 mg PO BID Qty: 60 RF: 5 oxycodone [OxyContin] 10 mg tablet,oral only,ext.rel.12 hr 10 mg PO BID Qty: 60 RF: 0 oxycodone 5 mg tablet 5 mg PO Q6H PRN (Reason: pain, severe) Qty: 60 RF: 0 Continue anastrozole 1 mg tablet 1 mg PO DAILY RF: 0 fexofenadine [Rocio Allergy] 180 mg Tablet 180 mg PO DAILY RF: 0 cholecalciferol (vitamin D3) [Vitamin D3] 2,000 unit Tablet 2,000 unit PO DAILY RF: 0 insulin aspart U-100 100 unit/mL insulin pen subcut AC RF: 0 lorazepam 1 mg Tablet 1 mg PO BID PRN (Reason: Anxiety) RF: 0 apixaban [Eliquis] 5 mg (74 tabs) tablets,dose pack See Label Instructions .ROUTE .COMPLEX Qty: 74 RF: 0 turmeric-turmeric root extract 450-50 mg Capsule 450 mg PO DAILY RF: 0 Discontinued atenolol 50 mg tablet 50 mg PO BID RF: 0 oxycodone 5 mg Tablet 5 - 10 mg PO Q6H PRN (Reason: Pain) RF: 0 tizanidine 4 mg capsule 4 mg PO BID RF: 0 insulin glargine [Lantus U-100 Insulin] 100 unit/mL Solution 22 unit SUBCUT QPM RF: 0 dexamethasone [Decadron] 4 mg Tablet 40 mg PO DIRECTED RF: 0 Stand-Alone Forms: [facility] Discharge Orders: Discharge Order (Routine); Ordered 05/16/18 Ordered By: Guy Hoyt Admission Data Admit Date/Time: 05/09/18 04:50 Attending Provider: Guy Hoyt Admit Provider: Donny Lutz Primary Care Provider: Jean Carlos Goodwin Other Providers: Nicole Henderson ; Donny Lutz ; Sathish Pete ; Christophe Light ; Kylah Madsen ; Jeferson Cobb Service: Telemetry Other Interventions: Discharge Summary Assessment (RN) Last Done: 05/16/18 16:39 DC Date/Time DO NOT enter until pt leaves facility: 05/16/18 17:45
== END 2018-05-16 17:45 | disposition home or self-care (01) | DRG 208 ==
LOC: ED 02:55 → 1E 04:50 → 2S 05-11 20:10
DX: I13.0 Hypertensive heart and chronic kidney disease with heart failure and stage 1 through stage 4 chronic kidney disease, or unspecified chronic kidney disease; R79.89 Other specified abnormal findings of blood chemistry; Z79.4 Long term (current) use of insulin; N18.3 Chronic kidney disease, stage 3 (moderate); E11.65 Type 2 diabetes mellitus with hyperglycemia; J18.9 Pneumonia, unspecified organism; E11.22 Type 2 diabetes mellitus with diabetic chronic kidney disease; I45.10 Unspecified right bundle-branch block; M06.9 Rheumatoid arthritis, unspecified; Z79.899 Other long term (current) drug therapy; J98.11 Atelectasis; J32.9 Chronic sinusitis, unspecified; I50.813 Acute on chronic right heart failure; Z79.01 Long term (current) use of anticoagulants; N17.9 Acute kidney failure, unspecified; J96.22 Acute and chronic respiratory failure with hypercapnia; D64.9 Anemia, unspecified; D69.3 Immune thrombocytopenic purpura; E66.01 Morbid (severe) obesity due to excess calories; I82.413 Acute embolism and thrombosis of femoral vein, bilateral; C50.911 Malignant neoplasm of unspecified site of right female breast; J96.01 Acute respiratory failure with hypoxia; I82.432 Acute embolism and thrombosis of left popliteal vein; G93.41 Metabolic encephalopathy; C79.51 Secondary malignant neoplasm of bone; E87.5 Hyperkalemia; R21 Rash and other nonspecific skin eruption; Z68.42 Body mass index [BMI] 45.0-49.9, adult

== ENCOUNTER 2019-01-06 11:07 | Inpatient (IN) ==
[2019-01-06] MEDS ORDERED: ONDANSETRON INJ 2 MG/ML 2 ML VIAL IV STA (11:52)
[2019-01-06] MEDS ORDERED: HYDROmorphone INJ 0.5 MG/0.5 ML SYR IV ONE (11:52)
[2019-01-06] MEDS ORDERED: ALBUT/IPRATROP 3MG/0.5MG NEB 3 ML VIAL NEB ONE (11:53)
--- NOTE | 2019-01-06 12:09 | XRay Report ---
SINGLE VIEW CHEST CLINICAL HISTORY: Dyspnea. FINDINGS: An AP, portable, upright chest radiograph is compared to chest x-ray and chest CT dated 04/16. The examination is degraded by portable technique and patient rotation. The heart is enlarg ed. The pulmonary vasculature is noncongested. There is chronic elevation of the right hemidiaphragm. Scarring/atelectasis is seen at both lung bases. Is no evidence of superimposed airspace consolidati on or large pleural effusion. No pneumothorax is seen. The skeletal structures are osteopenic. There are are numerous healed bilateral rib fractures. Advanced arthritic change is seen in the shoulders. IMPRESSION: Cardiomegaly with no acute cardiopulmonary abnormality. Electronically signed by: Tommy Walter M.D. 01/06/2019 12:08 PM
[2019-01-06 13:01] LABS: INR 1.1 (0.9-1.1); Partial Thromboplastin Ratio 0.8; Partial Thromboplastin Time 21.1 Seconds (21.0-31.0); Prothrombin Time 11.4 Seconds (9.0-12.0)
[2019-01-06 13:11] LABS: Alanine Aminotransferase 10 U/L (12-78); Aspartate Aminotransferase 17 U/L (15-37); BUN Creatinine Ratio 35.5 (10-20); Blood Urea Nitrogen 53 mg/dl (7-18); Calcium 9.6 mg/dl (8.5-10.1); Carbon Dioxide 25 mmol/L (21-32); Chloride 110 mmol/L (98-107); Est GFR (African American) 43.2; Est GFR (Non-African American) 37.3; Glucose 108 mg/dl (70-99); Potassium 4.4 mmol/L (3.5-5.1); Sodium 142 mmol/L (136-145)
[2019-01-06 13:16] LABS: Albumin Globulin Ratio 0.6 (0.9-2); Alkaline Phosphatase 198 U/L (45-117); Bilirubin,Total 0.5 mg/dl (0.2-1); Creatine Kinase 75 U/L (26-192); Creatine Kinase MB 3.3 ng/ml (0.5-3.6); Globulin 5.4 gm/dl (2.5-4.0); Total Protein 8.4 gm/dl (6.4-8.2); Troponin I < 0.015 ng/ml (0-0.045)
[2019-01-06 13:17] LABS: Basophils # (auto) 0.01 K/uL (0-0.2); Basophils % (auto) 0.3 %; Eosinophils % (auto) 2.9 %; Hematocrit (blood only) 30.1 % (37-47); Hemoglobin 9.3 g/dL (12.0-16.0); Hypochromasia Present; Immature Granulocytes # (auto) 0.12 K/uL (0.00-0.02); Immature Granulocytes % (auto) 3.4 %; Lymphocytes # (auto) 0.71 K/uL (1.2-3.4); Lymphocytes % (auto) 20.4 %; Mean Corpuscular Hemoglobin 24.7 pg (25-34); Mean Corpuscular Hgb Conc 30.9 g/dL (32-36); Mean Corpuscular Volume 79.8 fL (80-100); Monocytes # (auto) 0.19 K/uL (0.11-0.59); Monocytes % (auto) 5.5 %; Neutrophils # (auto) 2.35 K/uL (1.4-6.5); Neutrophils % (auto) 67.5 %; Nucleated RBC # (auto) 0.18 K/uL (0-0); Nucleated RBC % (auto) 5.1 %; Platelet Count 21 K/uL (130-400); Platelet Estimate SIGNIFIC DECREASED (Normal); RDW Coefficient of Variation 19.4 % (11.5-14.5); RDW Standard Deviation 52.2 fL (36.4-46.3); Red Blood Count 3.77 M/uL (4.2-5.4); White Blood Count 3.48 K/uL (4.8-10.8)
[2019-01-06 13:25] LABS: iSTAT Creatinine 1.4 mg/dl (0.6-1.3); iSTAT Hemoglobin 10.5 g/dl (12.0-16.0); iSTAT Ionized Calcium 1.28 mmol/l (1.12-1.32); iSTAT Potassium 4.5 mEq/L (3.3-5.0)
[2019-01-06] MEDS ORDERED: methylPREDNISolone 125 MG/2 ML VIAL IV STA (13:29)
[2019-01-06 14:46] LABS: Reticulocyte % 2.8 % (0.5-2.0); Reticulocytes # 0.11 10^6/uL (0.02-0.10)
--- NOTE | 2019-01-06 15:43 | History & Physical Report ---
Date of Service January 06, 2019 Assessment & Plan (1) Pancytopenia: (2) Metastatic breast cancer: -admit to med/surg -patient sent from Dr. Christophe Light's office for evaluation of pancytopenia -patient with history of metastatic breast cancer; On 12/08, patient was placed on Faslodex injections every 2 weeks and PO Abemaciclib. Unfortunately she did not tolerate the Abemaciclib causing GI complaints. This was discontinued one week ago. -At Dr. Light's office today, labs were checked and hgb 8.8 (down from 12.0), platelets 10K (down from 134k), creat 1.4 (mildly elevated from baseline). Repeat labs in the ED show hgb 9.3, platelets 21K, creat 1.4 -patient not neutropenic -patient also with history of ITP, was discussed with Dr. Light who feels as though pancytopenia is drug induced from recent medication changes, no need for steroids at this time -peripheral smear completed by Dr. Light in his office negative for schistocytes, therefore does not seem to be TTP -given improvement in labs obtained in the ED, no role for PRBC or platelet transfusions; monitor labs closely and provide transfusions if platelets < 10K or if hgb is nearing 7.0 -patient is on Eliquis for history of BLLE DVT, will hold tonight's dose per Dr. Light and reassess after morning labs -CXR negative for actue findings, will rule out other sources of infection with blood cultures, U/A and urine culture; however patient does not appear toxic at this time (3) Hypoxia: (4) Obesity hypoventilation syndrome: (5) TYE (obstructive sleep apnea): -on arrival to the ED, patient was found to be hypoxic on room air at 86% and was placed on 4L via NC -when I entered the room, patient was on room air saturating in the low 90s. Once she began to speak, she occasionally dropped down to the high 80s. Oxygen was reapplied at 2L and patient maintained sats > 92% -CXR clear -patient reports exertional shortness of breath recently and states breathing currently feels "quivery"; she attributes most of this to underlying anxiety and panic -no cough or sputum production, denies chest pain -does not appear volume overloaded on exam -suspect mild hypoxia is due to general deconditioning and underlying TYE and obesity hypoventilation; PE could be considered however patient is on Eliquis for history of BLLE DVT and reports compliance. If she does not improve, CTA chest could be obtained (6) History of DVT (deep vein thrombosis): -holding Eliquis due to pancytopenia (7) Right-sided heart failure: -currently appears euvolemic -only takes torsemide on a PRN basis (8) CKD (chronic kidney disease), stage III: -recent baseline creat ~ 1.2-1.3, labs today show a mild increase to 1.4 -possibly prerenal in nature due to recent vomiting and diarrhea -will hold on IVF for now as patient has had history of profound volume overload in the past -monitor renal functions, avoid nephrotoxic agents when able (9) DM type 2 (diabetes mellitus, type 2): -hgb a1c 7.9 09/2018 -Lantus/Novolog per protocol while hospitalized (10) Hypertension: -BP controlled, continue metoprolol (11) DVT prophylaxis: -SCDs while off Eliquis History of Present Illness Chief Complaint: Sent by oncologist for evaluation of thrombocytopenia Primary Care Provider: Lucio Larry MD 63 year old female who was sent to the ED by outpatient oncologist for evaluation of thrombocytopenia. Patient has history of metastatic breast cancer. On 12/08, patient was placed on Faslodex injections every 2 weeks and PO Abemaciclib. Unfortunately she did not tolerate the Abemaciclib causing GI complaints. This was discontinued one week ago. Patient had severe nausea, vomiting, and diarrhea. Since stopping the medication, these symptoms have resolved. She presented to Dr. Light's office today with complaints of generalized fatigue and shortness of breath. She reports these symptoms started at the same time she started the new medications. She describes her shortness of breath as a "quivering" sensation. She denies chest pain. She attributes some of her shortness of breath to panic and anxiety. She has chronic lower extremity edema and redness which is unchanged from baseline. She does not weigh herself on a daily basis. She chronically sleeps in a recliner. A few days ago she had one nosebleed. This was self limiting. No lightheadedness, dizziness, diaphoresis, or syncopal events. When she was having the vomiting and diarrhea, she was having some BRBPR however attributes that to hemorrhoids. She denies hematemesis, coffee ground emesis, or dark tarry stools. No fevers or chills. She denies urinary symptoms. At Dr. Light's office today, labs were checked and hgb 8.8 (down from 12.0), platelets 10K (down from 134k), creat 1.4 (mildly elevated from baseline). Patient was then sent to the ED for further evaluation. Repeat labs in the ED show hgb 9.3, platelets 21K, creat 1.4. Patient was also found to be hypoxic on room air at 86%. This improved with 4L via NC. When I entered the room, patient was on room air saturating in the low 90s. Once she began to speak, she occasionally dropped down to the high 80s. Oxygen was reapplied at 2L and patient maintained sats > 92%. CXR is clear. Patient was given neb tx, IV Dilaudid, IV solumedrol, and IV Zofran. Allergies Allergy/AdvReac Type Severity Reaction Status Date / Time gabapentin AdvReac Hallucinati Verified 01/06/19 12:34 ng Home Medications Home Medications Medication Instructions Recorded Confirmed Type cholecalciferol (vitamin D3) 2,000 unit PO DAILY 03/05/18 01/06/19 History [Vitamin D3] fexofenadine [Rocio Allergy] 180 mg PO QAM 03/05/18 01/06/19 History insulin aspart U-100 0 units SUBCUT AC 03/05/18 01/06/19 History lorazepam 1 mg PO BID PRN 03/05/18 01/06/19 History insulin glargine [Lantus Solostar See Rx Instructions .ROUTE 05/16/18 01/06/19 Rx U-100 Insulin] .COMPLEX #15 ml metoprolol succinate 25 mg PO BID #60 ea 05/16/18 01/06/19 Rx apixaban [Eliquis] 5 mg PO BID 01/06/19 01/06/19 History denosumab [Xgeva] 120 mg SUBCUT MONTHLY 01/06/19 01/06/19 History duloxetine 60 mg PO DAILY 01/06/19 01/06/19 History fulvestrant [Faslodex] 250 mg IM Q14D 01/06/19 01/06/19 History hydromorphone 2 mg PO Q6H PRN 01/06/19 01/06/19 History hydroxyzine HCl 25 mg PO BID 01/06/19 01/06/19 History omeprazole 20 mg PO BID 01/06/19 01/06/19 History ondansetron HCl 8 mg PO Q8H PRN 01/06/19 01/06/19 History oxycodone [OxyContin] 10 mg PO Q12H 01/06/19 01/06/19 History tizanidine 4 mg PO BID PRN 01/06/19 01/06/19 History topiramate 25 mg PO BID 01/06/19 01/06/19 History torsemide 20 mg PO DAILY PRN 01/06/19 01/06/19 History Past Med/Surg History Medical History TYE (obstructive sleep apnea) (Chronic) Obesity hypoventilation syndrome (Chronic) History of DVT (deep vein thrombosis) (Chronic) Right-sided heart failure (Chronic) Thrombocytopenia (Chronic) Metastatic breast cancer (Chronic) CKD (chronic kidney disease), stage III (Chronic) ATN (acute tubular necrosis) (Resolved) DM type 2 (diabetes mellitus, type 2) (Chronic) Hyperlipidemia (Chronic) Irritable bowel syndrome (Chronic) Rheumatoid arthritis (Chronic) Osteoarthritis (Chronic) Hypertension (Chronic) Breast cancer metastasized to bone (Inactive) Chronic kidney disease (Inactive) Rheumatoid arthritis (Inactive) Surgical History History of hernia repair (Chronic) Family History Mother Stroke Social History Preferred Language: Turkmen Communication Ability: Effective Visual Impairment: No Limitations 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 Beliefs That Will Affect Care: Amish Amish Beliefs: Latter Day Current Living Situation: Spouse Other Information That Helps Us Care for You: No Feels Safe at Home: Yes Safety Concerns: Feels Safe At This Time Smoking Status: Never smoker Second Hand Exposure: No ; Hx Alcohol Use: No Hx Substance Use: No Review of Systems Review of Systems: ROS per HPI, all other systems reviewed and negative Physical Exam Constitutional: WD/WN, vitals as above + obese; no acute distress Eyes: PERRL, conjunctivae normal, anicteric sclerae ENMT: external ear and nose normal, oropharynx normal Respiratory: normal respiratory effort; no respiratory distress Auscultation: + diminished lung sounds Cardiovascular: Rate/Rhythm: regular rate and regular rhythm Vessels: normal peripheral pulses Extremities: + edema (+1-2 pitting edema BLLE (chronic per patient)) Gastrointestinal (Abdomen): normal bowel sounds, soft, nontender, no hepatosplenomegaly Musculoskeletal: no cyanosis or clubbing, extremities motor strength 5/5 Skin: no rashes, warm and dry chronic BLLE erythema noted, no open areas or drainage noted Neurologic: PERRL, EOMI, accommodation nl, no face palsy, no dysarthria Psychiatric: A+Ox3, euthymic affect Results & Data Vital Signs (Past 12 Hours) Vital Signs Temp Pulse Pulse Resp BP BP Pulse Ox 01/06/19 15:00 104 H 22 122/61 95 01/06/19 13:08 78 20 100 01/06/19 12:11 78 18 100 01/06/19 11:52 100 01/06/19 11:13 36.8 C 80 20 157/76 H 96 01/06/19 11:08 86 L Laboratory Results Short CBC 01/06/19 Range/Units 12:10 WBC 3.48 L (4.8-10.8) K/uL Hgb 9.3 L (12.0-16.0) g/dL Hct 30.1 L (37-47) % Plt Count 21 L* (130-400) K/uL BMP 01/06/19 12:10 Sodium 142 Potassium 4.4 Chloride 110 H Carbon Dioxide 25 BUN 53 H Creatinine 1.48 H Glucose 108 H Calcium 9.6 Cardiac Enzymes 01/06/19 Range/Units 12:10 Total Creatine Kinase 75 (26-192) U/L CK-MB (CK-2) 3.3 (0.5-3.6) ng/ml Troponin I < 0.015 (0-0.045) ng/ml Liver Function 01/06/19 Range/Units 12:10 Total Bilirubin 0.5 (0.2-1) mg/dl AST 17 (15-37) U/L ALT 10 L (12-78) U/L Alkaline Phosphatase 198 H (45-117) U/L Albumin 3.0 L (3.4-5.0) gm/dl Diagnostic Findings CXR IMPRESSION: Cardiomegaly with no acute cardiopulmonary abnormality. Code Status & VTE Plan Code Status Patient is a full code as per my discussion with her. VTE Prophylaxis Plan VTE Prophylaxis will be ordered: Yes Supervising Physician Co-Signing Physician Notes I have seen and examined the patient and have discussed the case with the provider above. I agree with the assessment and plan as stated with the following exceptions. Mrs. Kimble has no active bleeding at this time. Exam reveals a stable patient who is mentating well and has no respiratory distress. While in the ER today she had a full on panic attack when laid on her back. She developed some respiratory distress that improved with oxygen, which she uses at night. However, she was quickly able to wean off the oxygen and is doing well. Agree with physical exam findings as listed as above. Cont to monitor overnight and trend CBC in am. Appears well clinically. [place], DO
[2019-01-06] MEDS ORDERED: GLUCOSE 10 TABS/TUBE PO PRN (16:10)
[2019-01-06] MEDS ORDERED: DEXTROSE 50% 50 ML SYRINGE IV PRN (16:10)
[2019-01-06] MEDS ORDERED: GLUCOSE 40% GEL 15 GM TUBE PO PRN (16:10)
[2019-01-06] MEDS ORDERED: GLUCAGON FOR INJ 1 MG VIAL SQ PRN (16:10)
[2019-01-06] MEDS ORDERED: ACETAMINOPHEN 325 MG TAB PO PRN (16:10)
[2019-01-06] MEDS ORDERED: CARBOHYDRATES FOR HYPOGLYCEMIA PO PRN (16:10)
[2019-01-06] MEDS ORDERED: PATIENT'S HEIGHT AND/OR WEIGHT NEEDED SCH (16:45)
[2019-01-06] MEDS: INSULIN ASPART 100 UNITS/ML 3 ML PEN SC SCH ×2 (17:30→21:09)
[2019-01-06] MEDS ORDERED: INFLUENZA ADMINISTRATION CHARGE ONE (18:00)
[2019-01-06 18:26] LABS: Appearance Urine Cloudy (Clear); Bacteria Urine Automated Negative (Negative); Bilirubin Urine Negative (Negative); Blood Urine 3+ (Negative); Color Urine Yellow; Glucose Urine UA Negative (Negative); Ketones Urine Negative (Negative); Leukocyte Esterase Urine 2+ (Negative); Nitrite Urine Negative (Negative); Protein Urine 2+ (Negative); RBC Urine Automated >30 /hpf (0-4); Specific Gravity Urine 1.023 (1.000-1.030); Urobilinogen Urine Negative (Negative); WBC Urine Automated >30 /hpf (0-5)
[2019-01-06] MEDS ORDERED: INSULIN GLARGINE SOLOSTAR 100 UNITS/ML 3 ML PEN SC SCH (21:00)
[2019-01-06] MEDS: cefTRIAXone SODIUM 2,000 MG in DEXTROSE 5% 50 ML IV SCH (21:03)
[2019-01-06] MEDS: OXYCODONE HCL 10 MG TABCR (OXYCONTIN) PO SCH (21:04)
[2019-01-06] MEDS: PANTOprazole 40 MG TAB PO SCH (21:05)
[2019-01-06] MEDS ORDERED: PHARMACY GLYCEMIC MGMT CONSULT PRN (21:05)
[2019-01-06] MEDS: TOPIRAMATE 25 MG TAB PO SCH (21:05)
[2019-01-06] MEDS: METOPROLOL SUCC 25MG EXT REL TAB PO SCH (21:06)
[2019-01-06] MEDS ORDERED: INSULIN GLARGINE SOLOSTAR 100 UNITS/ML 3 ML PEN SC ONE (21:15)
[2019-01-06] MEDS: LORazepam 1 MG TAB PO PRN (23:28)
[2019-01-06] MEDS ORDERED: MICONAZOLE NITRATE POWDER 43 GM EXT PRN (23:33)
[2019-01-07] MEDS: HYDROmorphone HCL 2 MG TAB PO PRN ×2 (00:08→09:06)
[2019-01-07] MEDS: INSULIN ASPART 100 UNITS/ML 3 ML PEN SC SCH ×7 (00:13→23:45)
[2019-01-07] MEDS: TOPIRAMATE 25 MG TAB PO SCH ×2 (07:18→20:37)
[2019-01-07] MEDS: DULOXETINE HCL 60 MG CAP PO SCH (07:18)
[2019-01-07] MEDS: PANTOprazole 40 MG TAB PO SCH ×2 (07:18→20:37)
[2019-01-07] MEDS: METOPROLOL SUCC 25MG EXT REL TAB PO SCH ×2 (07:18→20:37)
[2019-01-07] MEDS: CHOLECALCIFEROL 1,000 UNITS TAB PO SCH (07:18)
[2019-01-07] MEDS: FEXOFENADINE HCL 180 MG TAB PO SCH (07:19)
[2019-01-07] MEDS: OXYCODONE HCL 10 MG TABCR (OXYCONTIN) PO SCH ×2 (07:24→20:37)
[2019-01-07 07:35] LABS: Estimated Average Glucose 217 mg/dl; Hemoglobin A1C 9.2 % (4.5-5.6)
[2019-01-07 07:39] LABS: Hematocrit (blood only) 28.9 % (37-47); Hemoglobin 8.9 g/dL (12.0-16.0); Mean Corpuscular Hemoglobin 24.7 pg (25-34); Mean Corpuscular Hgb Conc 30.8 g/dL (32-36); Mean Corpuscular Volume 80.3 fL (80-100); Nucleated RBC # (auto) 0.24 K/uL (0-0); Nucleated RBC % (auto) 5.2 %; Platelet Count 12 K/uL (130-400); RDW Coefficient of Variation 19.5 % (11.5-14.5); RDW Standard Deviation 51.7 fL (36.4-46.3); White Blood Count 4.69 K/uL (4.8-10.8)
[2019-01-07 07:40] LABS: Basophils # (auto) 0.01 K/uL (0-0.2); Basophils % (auto) 0.2 %; Eosinophils # (auto) 0.02 K/uL (0-0.5); Eosinophils % (auto) 0.4 %; Giant Platelets 2+; Hypochromasia Present; Immature Granulocytes # (auto) 0.11 K/uL (0.00-0.02); Immature Granulocytes % (auto) 2.3 %; Lymphocytes # (auto) 0.52 K/uL (1.2-3.4); Lymphocytes % (auto) 11.1 %; Monocytes # (auto) 0.22 K/uL (0.11-0.59); Monocytes % (auto) 4.7 %; Neutrophils # (auto) 3.81 K/uL (1.4-6.5); Neutrophils % (auto) 81.3 %; Platelet Estimate SIGNIFIC DECREASED (Normal)
[2019-01-07 07:50] LABS: BUN Creatinine Ratio 34.8 (10-20); Calcium 9.1 mg/dl (8.5-10.1); Creatinine Clr Calc Pharmacy 50.4 ml/min; Est GFR (African American) 45.1; Est GFR (Non-African American) 38.9; Potassium 5.2 mmol/L (3.5-5.1)
[2019-01-07 08:25] LABS: Immature Platelet Fraction 20.5 % (0.9-8.3)
[2019-01-07] MEDS ORDERED: PHARMACY GLYCEMIC MGMT CONSULT STA (11:43)
[2019-01-07] MEDS ORDERED: dexAMETHasone 4 MG TAB PO SCH (11:45)
[2019-01-07] MEDS ORDERED: INSULIN GLARGINE SOLOSTAR 100 UNITS/ML 3 ML PEN SC SCH (12:00)
[2019-01-07] MEDS ORDERED: INSULIN GLARGINE SOLOSTAR 100 UNITS/ML 3 ML PEN SC ONE (12:00)
[2019-01-07] MEDS: dexAMETHasone 4 MG TAB PO SCH (12:39)
--- NOTE | 2019-01-07 14:08 | Pharmacy Report ---
Glycemic Control Consultation - Date of Service January 07, 2019 - Scope Scope: Glycemic Pharmacist consulted by Violet MENDOZA on 01/06/19 for glycemic control and to write orders per [facility] inpatient glycemic control protocol - Objective Weight: 119.5 kg Accuchecks BSG (last 24hrs): 01/06/19 01/06/19 01/07/19 20:09 20:12 00:11 Glucose POC Glucose 333 H* 369 H* 296 H 01/07/19 01/07/19 01/07/19 04:50 07:01 07:31 Glucose 183 H POC Glucose 184 H 166 H 01/07/19 11:14 Glucose POC Glucose 177 H Laboratory Data (last 24hrs): 01/07/19 01/07/19 07:01 08:26 Potassium 5.2 H D 4.8 Carbon Dioxide 25 Anion Gap 5.0 Creatinine 1.43 H Est Cr Clr Drug Dosing 50.4 HbA1c: Hemoglobin A1c 9.2 % (4.5-5.6) H 01/07/19 07:01 - Recent Pertinent Medications Outpatient Anti-diabetic Regimen: * Lantus 0-36 units qhs (based on sliding scale) * Novolog 3 units AC + sliding scale insulin for BSG > 150 mg/dL * A1c = 9.2 % (01/07/19) * May be somewhat unreliable due to chronic anemia Risk Factors for Insulin Resistance: * Steroids: Solu-medrol 125 mg IV x 1 given yesterday at 1300. Patient now on dexamethasone 20 mg PO daily. * Infection: Ceftriaxone 2 g IV q24h for UTI - Assessment & Plan Assessment & Plan: ASSESSMENT: * Patient admitted on 01/06/19 for evaluation of pancytopenia * Past medical history includes metastatic breast cancer (receives Faslodex injections q2 weeks), Type 2 DM, obesity, history of DVT, CKD stage 3, right- sided HF, HTN, and TYE. * Patient seemed very unsure of her current Lantus scale that she uses at home and I would say that the numbers she gave us were unreliable - will use previous admission data and weight-based/stressed dosing for now * BSGs elevated yesterday (as high as 369 mg/dL after receiving 125 mg IV methylprednisolone) * Fasting BSG this morning of 166 mg/dL * Dexamethasone 20 mg PO daily x 4 days - expecting BSGs to rise considerably (will cover appropriately) PLAN FOR INPATIENT GLYCEMIC CONTROL: * Basal insulin * Lantus 30 units SQ given with dose of dexamethasone around noon today * Lantus scale for this evening (10 units - <110 mg/dL, 20 units: 110-200 mg/dL, 30 units > 200 mg/dL) * Bolus insulin - will tighten CF and CR while dexamethasone on board and add on overnight checks for tonight * NovoLog per scale ACHS or Q6hrs while NPO * Goal Range: Low 100 mg/dL - High 140 mg/dL * Correction Factor: 15 mg/dL/unit * Nutritional / Prandial insulin per carb ratio of 1 unit per 4 grams CHO consumed * Please note that the plan above was derived based on current level of insulin resistance and hospital stress. These recommendations are appropriate for inpatient admission only. Plan of care upon discharge will need to be reassessed to avoid potential outpatient hypo/hyperglycemia. Thank you.
--- NOTE | 2019-01-07 15:30 | Emergency Department Note ---
Entered by Leonor Tanner acting as a scribe for Celestino Clifford MD History of Present Illness General Chief complaint: Shortness of Breath/Dyspnea Stated complaint: CAN'T BREATHE, BLOOD PLATELETS PROBLEM Time Seen by Provider: 01/06/19 11:44 Source: patient History of Present Illness Provider complaint: shortness of breath Onset (ago): hour(s) (this morning ) Location: chest Maximum Pain Intensity: 7 Relieved By: + other (sitting up ) Exacerbated By: + other (laying down ) Associated symptoms: + other (platelet count of 10,000, purplish sores on her buttocks ) The patient is a 63 year old female who presents to the ED with complaints of an episode of shortness of breath that began this morning. The patient states that she has cancer and was told this morning that her platelet count was 10,000. The patient states that Dr. Light, [facility], told the patient to come to the ED today because of her shortness of breath and platelet count. The patient states that she cannot lay down because she won't be able to breath, so she has to sit straight up. The patient states that she has purplish sores on her buttocks from her new cancer medication that she started 3weeks ago. Home Medications Home Medications Medication Instructions Recorded Confirmed Type cholecalciferol (vitamin D3) 2,000 unit PO DAILY 03/05/18 01/06/19 History [Vitamin D3] fexofenadine [Rocio Allergy] 180 mg PO QAM 03/05/18 01/06/19 History insulin aspart U-100 0 units SUBCUT AC 03/05/18 01/06/19 History lorazepam 1 mg PO BID PRN 03/05/18 01/06/19 History insulin glargine [Lantus Solostar See Rx Instructions .ROUTE 05/16/18 01/06/19 Rx U-100 Insulin] .COMPLEX #15 ml metoprolol succinate 25 mg PO BID #60 ea 05/16/18 01/06/19 Rx apixaban [Eliquis] 5 mg PO BID 01/06/19 01/06/19 History denosumab [Xgeva] 120 mg SUBCUT MONTHLY 01/06/19 01/06/19 History duloxetine 60 mg PO DAILY 01/06/19 01/06/19 History fulvestrant [Faslodex] 250 mg IM Q14D 01/06/19 01/06/19 History hydromorphone 2 mg PO Q6H PRN 01/06/19 01/06/19 History hydroxyzine HCl 25 mg PO BID 01/06/19 01/06/19 History omeprazole 20 mg PO BID 01/06/19 01/06/19 History ondansetron HCl 8 mg PO Q8H PRN 01/06/19 01/06/19 History oxycodone [OxyContin] 10 mg PO Q12H 01/06/19 01/06/19 History tizanidine 4 mg PO BID PRN 01/06/19 01/06/19 History topiramate 25 mg PO BID 01/06/19 01/06/19 History torsemide 20 mg PO DAILY PRN 01/06/19 01/06/19 History Allergies Allergy/AdvReac Type Severity Reaction Status Date / Time gabapentin AdvReac Hallucinati Verified 01/06/19 12:34 ng Past Med/Surg History Medical History TYE (obstructive sleep apnea) (Chronic) Obesity hypoventilation syndrome (Chronic) History of DVT (deep vein thrombosis) (Chronic) Right-sided heart failure (Chronic) Thrombocytopenia (Chronic) Metastatic breast cancer (Chronic) CKD (chronic kidney disease), stage III (Chronic) ATN (acute tubular necrosis) (Resolved) DM type 2 (diabetes mellitus, type 2) (Chronic) Hyperlipidemia (Chronic) Irritable bowel syndrome (Chronic) Rheumatoid arthritis (Chronic) Osteoarthritis (Chronic) Hypertension (Chronic) Breast cancer metastasized to bone (Inactive) Chronic kidney disease (Inactive) Rheumatoid arthritis (Inactive) Surgical History History of hernia repair (Chronic) Family History Mother Stroke Social History Preferred Language: Urdu Communication Ability: Effective Visual Impairment: No Limitations Micro Photographer Required: No Beliefs That Will Affect Care: Roman Catholic Roman Catholic Beliefs: Adventism marital status: Current Living Situation: Spouse Other Information That Helps Us Care for You: No Feels Safe at Home: Yes Safety Concerns: Feels Safe At This Time Smoking Status: Never smoker Second Hand Exposure: No ; Hx Alcohol Use: No Hx Substance Use: No Review of Systems See HPI for pertinent positives & negatives. and A total of 10 systems reviewed and were otherwise negative Physical Exam Vital Signs Vital Signs - 24 hr 01/06/19 11:08 01/06/19 11:13 01/06/19 11:52 Temperature 36.8 C Temperature Source Oral Sepsis Recent Fever Within 48 Hours No Sepsis New/Unexplained Change in Mental Status No Sepsis Action Taken by Nursing No Action Required Oxygen Flow Rate - Titration 4 Pulse Oximetry Post Tiitration 96 Pulse Rate 80 Pulse Rate [Finger] Respiratory Rate 20 Respiratory Effort / Characteristics Non-Labored Spontaneous Respiratory Depth Normal Blood Pressure 157/76 H Blood Pressure Mean 103 Pulse Oximetry 86 L 96 100 Oxygen Delivery Method Room Air Room Air Nasal Cannula Oxygen Flow Rate 0 01/06/19 12:11 Temperature Temperature Source Sepsis Recent Fever Within 48 Hours Sepsis New/Unexplained Change in Mental Status Sepsis Action Taken by Nursing Oxygen Flow Rate - Titration Pulse Oximetry Post Tiitration Pulse Rate Pulse Rate [Finger] 78 Respiratory Rate 18 Respiratory Effort / Characteristics Non-Labored Spontaneous Respiratory Depth Blood Pressure Blood Pressure Mean Pulse Oximetry 100 Oxygen Delivery Method Nasal Cannula Oxygen Flow Rate 4 GENERAL: Awake, alert, well-appearing, in no acute distress HENT: Normocephalic, atraumatic. Oropharynx unremarkable. EYES: Normal conjunctiva. Sclera non-icteric. NECK: Supple. No nuchal rigidity. FROM. No JVD. RESPIRATORY: Wheezes bilaterally. CARDIAC: Regular rate, normal rhythm. Extremities warm and well perfused. Pulses equal. ABDOMEN: Soft, non-distended. No tenderness to palpation. No rebound or guarding. No masses. RECTAL: Deferred. MUSCULOSKELETAL: Chest examination reveals no tenderness. The back is symmetrical on inspection without obvious abnormality. There is no CVA tenderness to palpation. No joint edema. LOWER EXTREMITIES: Calves are equal size bilaterally and non-tender. No edema. No discoloration. NEURO: Normal sensorium. No sensory or motor deficits noted. SKIN: No rash or jaundice noted. Course 1146: Past medical records reviewed. The patient was evaluated in room B2. A complete history and physical exam was performed. 1250: I reevaluated the patient at this time and she stated that she is resting comfortably. I discussed the test results and treatment plan with the patient. She verbally agreed and understood. 1329: I discussed the patient's case with Jacinda Deleon PA-C. She recommended that the patient start steroids and [facility] for further management. 1335: I reevaluated the patient at this time and updated her on the treatment plan. Consultations Consultation #1: I discussed the patient's case with Jacinda Deleon PA-C. She recommended that the patient start steroids and informed me that [facility] to evaluate the patient for further management. Time: 13:29 Administered Medications Dexamethasone (Decadron) 20 mg PO DAILY [facility] Stop: 01/10/19 09:01 Last Admin: 01/07/19 12:39 Dose: 20 mg Documented by: [id number] Duloxetine HCl (Cymbalta) 60 mg PO DAILY [facility] Stop: 02/06/19 08:59 Last Admin: 01/07/19 07:18 Dose: 60 mg Documented by: [id number] Fexofenadine HCl (Rocio) 180 mg PO QAM [facility] Stop: 02/06/19 08:59 Last Admin: 01/07/19 07:19 Dose: 180 mg Documented by: [id number] Hydromorphone HCl (Dilaudid) 2 mg PO Q6H PRN PRN Reason: Pain Stop: 01/20/19 16:09 Last Admin: 01/07/19 09:06 Dose: 2 mg Documented by: [id number] Admin: 01/07/19 00:08 Dose: 2 mg Documented by: [id number] Hydroxyzine HCl (Vistaril) 25 mg PO BID [facility] Stop: 02/05/19 20:59 Last Admin: 01/07/19 07:17 Dose: 25 mg Documented by: [id number] Admin: 01/06/19 21:07 Dose: 25 mg Documented by: [id number] Ceftriaxone Sodium 2,000 mg/ (Dextrose) 70 mls @ 100 mls/hr IV Q24H [facility]; Protocol Stop: 01/11/19 20:59 Last Infusion: 01/06/19 21:50 Dose: 0 mls/hr Documented by: [id number] Admin: 01/06/19 21:03 Dose: 100 mls/hr Documented by: [id number] Insulin Aspart (Novolog Flexpen) 0 units SC ACHS [facility] Stop: 02/05/19 16:29 Last Admin: 01/07/19 12:40 Dose: 10 units Documented by: [id number] Cosigned by: [id number] Admin: 01/07/19 08:04 Dose: 9 units Documented by: [id number] Cosigned by: [id number] Admin: 01/06/19 21:09 Dose: 12 units Documented by: [id number] Cosigned by: [id number] Admin: 01/06/19 17:30 Dose: 6 units Documented by: [id number] Cosigned by: [id number] Lorazepam (Ativan) 1 mg PO BID PRN PRN Reason: Anxiety Stop: 02/05/19 16:09 Last Admin: 01/06/19 23:28 Dose: 1 mg Documented by: [id number] Metoprolol Succinate (Toprol Xl) 25 mg PO BID [facility] Stop: 02/05/19 20:59 Last Admin: 01/07/19 07:18 Dose: 25 mg Documented by: [id number] Admin: 01/06/19 21:06 Dose: 25 mg Documented by: [id number] Miconazole Nitrate (Desenex) 1 appln EXT PRN PRN PRN Reason: Affected Skin Folds Stop: 02/05/19 23:32 Last Admin: 01/07/19 05:06 Dose: 1 appln Documented by: [id number] Oxycodone HCl (Oxycontin) 10 mg PO Q12 [facility] Stop: 01/20/19 20:59 Last Admin: 01/07/19 07:24 Dose: 10 mg Documented by: [id number] Admin: 01/06/19 21:04 Dose: 10 mg Documented by: [id number] Pantoprazole Sodium (Protonix) 40 mg PO BID [facility] Stop: 02/05/19 20:59 Last Admin: 01/07/19 07:18 Dose: 40 mg Documented by: [id number] Admin: 01/06/19 21:05 Dose: 40 mg Documented by: [id number] Topiramate (Topamax) 25 mg PO BID [facility] Stop: 02/05/19 20:59 Last Admin: 01/07/19 07:18 Dose: 25 mg Documented by: [id number] Admin: 01/06/19 21:05 Dose: 25 mg Documented by: [id number] Vitamin D (Vitamin D3) 2,000 units PO DAILY [facility] Stop: 02/06/19 08:59 Last Admin: 01/07/19 07:18 Dose: 2,000 units Documented by: [id number] Discontinued Medications Albuterol (Duoneb) 12 ml NEB ONE ONE Stop: 01/06/19 11:54 Last Admin: 01/06/19 12:08 Dose: 12 ml Documented by: [id number] Dexamethasone (Decadron) 40 mg PO DAILY [facility] Stop: 01/10/19 09:01 Last Admin: 01/07/19 11:58 Dose: Not Given Documented by: [id number] Hydromorphone HCl (Dilaudid) 0.5 mg IV ONE ONE Stop: 01/06/19 11:53 Last Admin: 01/06/19 13:50 Dose: 0.5 mg Documented by: [id number] Insulin Aspart (Novolog Flexpen) 0 units SC TODAY@0000,0400 [facility] Stop: 01/07/19 04:01 Last Admin: 01/07/19 05:06 Dose: 3 units Documented by: [id number] Cosigned by: [id number] Admin: 01/07/19 00:13 Dose: 8 units Documented by: [id number] Cosigned by: [id number] Insulin Glargine (Lantus Solostar Pen) 0 - 15 units SC BID [facility] Stop: 02/05/19 20:59 Last Admin: 01/06/19 21:54 Dose: Not Given Documented by: [id number] Cosigned by: [id number] Insulin Glargine (Lantus Solostar Pen) 40 units SC NOW ONE Stop: 01/06/19 21:16 Last Admin: 01/06/19 21:12 Dose: 40 units Documented by: [id number] Cosigned by: [id number] Insulin Glargine (Lantus Solostar Pen) 30 units SC ONE ONE; Protocol Stop: 01/07/19 12:01 Last Admin: 01/07/19 12:40 Dose: 30 units Documented by: [id number] Cosigned by: [id number] Methylprednisolone (Solumedrol) 125 mg IV NOW STA Stop: 01/06/19 13:30 Last Admin: 01/06/19 13:51 Dose: 125 mg Documented by: [id number] Ondansetron HCl (Zofran) 4 mg IV NOW STA Stop: 01/06/19 11:53 Last Admin: 01/06/19 13:51 Dose: 4 mg Documented by: [id number] Medical Decision Making Differential Diagnosis Differential diagnosis: Etiologies such as infections, reactive airway disease, COPD, pneumonia, pleural effusion, pulmonary edema, ARDS, pneumothorax, CHF, cardiac ischemia, cardiac tamponade, dysrhythmia, anemia, pulmonary embolism, musculoskeletal, gastr ointestinal process, as well as others were entertained. Medical Records Attestation: I reviewed the patient's medical records. Home Medications Current Medication List: was personally reviewed by me Laboratory Data Attestation: I reviewed the patient's lab results. Result diagrams: 01/07/19 07:01 01/07/19 08:26 Lab Results 01/06/19 01/06/19 01/06/19 Range/Units 12:10 12:10 12:10 WBC 3.48 L (4.8-10.8) K/uL RBC 3.77 L (4.2-5.4) M/uL Hgb 9.3 L (12.0-16.0) g/dL POC Hgb (12.0-16.0) g/dl Hct 30.1 L (37-47) % POC Hct (37-47) % MCV 79.8 L (80-100) fL MCH 24.7 L (25-34) pg MCHC 30.9 L (32-36) g/dL RDW Std Deviation 52.2 H (36.4-46.3) fL RDW Coeff of Flori 19.4 H (11.5-14.5) % Plt Count 21 L* (130-400) K/uL Immature Gran % (Auto) 3.4 % Neut % (Auto) 67.5 % Lymph % (Auto) 20.4 % [place] % (Auto) 5.5 % Eos % (Auto) 2.9 % Baso % (Auto) 0.3 % Reticulocyte % (Auto) (0.5-2.0) % Immature Gran # (Auto) 0.12 H (0.00-0.02) K/uL Neut # (Auto) 2.35 (1.4-6.5) K/uL Lymph # (Auto) 0.71 L (1.2-3.4) K/uL [place] # (Auto) 0.19 (0.11-0.59) K/uL Eos # (Auto) 0.10 (0-0.5) K/uL Baso # (Auto) 0.01 (0-0.2) K/uL Reticulocyte # (0.02-0.10) 10^6/uL Absolute Nucleated RBC 0.18 H (0-0) K/uL Nucleated RBC % (auto) 5.1 % Platelet Estimate SIGNIFIC DECREASED (Normal) Hypochromasia Present PT 11.4 (9.0-12.0) Seconds INR 1.1 (0.9-1.1) APTT 21.1 (21.0-31.0) Seconds PTT Ratio 0.8 POC Sodium (135-144) mEq/L Sodium 142 (136-145) mmol/L POC Potassium (3.3-5.0) mEq/L Potassium 4.4 (3.5-5.1) mmol/L POC Chloride (101-112) mEq/L Chloride 110 H (98-107) mmol/L Carbon Dioxide 25 (21-32) mmol/L POC Total CO2 (24-31) mEq/l Anion Gap 7.0 (3-11) POC Anion Gap (16-25) mmol/L POC BUN (7-18) mg/dl BUN 53 H (7-18) mg/dl Creatinine 1.48 H (0.6-1.2) mg/dl POC Creatinine (0.6-1.3) mg/dl Est Cr Clr Drug Dosing Not Reportable Est GFR ( Amer) 43.2 Est GFR (Non-Af Amer) 37.3 BUN/Creatinine Ratio 35.5 H (10-20) Glucose 108 H (70-99) mg/dl POC Glucose (other) (70-99) mg/dl Calcium 9.6 (8.5-10.1) mg/dl POC Ioniz Calcium Glory (1.12-1.32) mmol/l Total Bilirubin 0.5 (0.2-1) mg/dl AST 17 (15-37) U/L ALT 10 L (12-78) U/L Alkaline Phosphatase 198 H (45-117) U/L Total Creatine Kinase 75 (26-192) U/L CK-MB (CK-2) 3.3 (0.5-3.6) ng/ml CK/CKMB % Calc 4.4 H (0-3.0) Troponin I < 0.015 (0-0.045) ng/ml Total Protein 8.4 H (6.4-8.2) gm/dl Albumin 3.0 L (3.4-5.0) gm/dl Globulin 5.4 H (2.5-4.0) gm/dl Albumin/Globulin Ratio 0.6 L (0.9-2) Blood Type Antibody Screen 01/06/19 01/06/19 01/06/19 Range/Units 12:10 12:10 12:54 WBC (4.8-10.8) K/uL RBC (4.2-5.4) M/uL Hgb (12.0-16.0) g/dL POC Hgb 10.5 L (12.0-16.0) g/dl Hct (37-47) % POC Hct 31 L (37-47) % MCV (80-100) fL MCH (25-34) pg MCHC (32-36) g/dL RDW Std Deviation (36.4-46.3) fL RDW Coeff of Flori (11.5-14.5) % Plt Count (130-400) K/uL Immature Gran % (Auto) % Neut % (Auto) % Lymph % (Auto) % [place] % (Auto) % Eos % (Auto) % Baso % (Auto) % Reticulocyte % (Auto) 2.8 H (0.5-2.0) % Immature Gran # (Auto) (0.00-0.02) K/uL Neut # (Auto) (1.4-6.5) K/uL Lymph # (Auto) (1.2-3.4) K/uL [place] # (Auto) (0.11-0.59) K/uL Eos # (Auto) (0-0.5) K/uL Baso # (Auto) (0-0.2) K/uL Reticulocyte # 0.11 H (0.02-0.10) 10^6/uL Absolute Nucleated RBC (0-0) K/uL Nucleated RBC % (auto) % Platelet Estimate (Normal) Hypochromasia PT (9.0-12.0) Seconds INR (0.9-1.1) APTT (21.0-31.0) Seconds PTT Ratio POC Sodium 143 (135-144) mEq/L Sodium (136-145) mmol/L POC Potassium 4.5 (3.3-5.0) mEq/L Potassium (3.5-5.1) mmol/L POC Chloride 108 (101-112) mEq/L Chloride (98-107) mmol/L Carbon Dioxide (21-32) mmol/L POC Total CO2 25 (24-31) mEq/l Anion Gap (3-11) POC Anion Gap 16.0 (16-25) mmol/L POC BUN 48 H (7-18) mg/dl BUN (7-18) mg/dl Creatinine (0.6-1.2) mg/dl POC Creatinine 1.4 H (0.6-1.3) mg/dl Est Cr Clr Drug Dosing Est GFR ( Amer) Est GFR (Non-Af Amer) BUN/Creatinine Ratio (10-20) Glucose (70-99) mg/dl POC Glucose (other) 109 H (70-99) mg/dl Calcium (8.5-10.1) mg/dl POC Ioniz Calcium Glory 1.28 (1.12-1.32) mmol/l Total Bilirubin (0.2-1) mg/dl AST (15-37) U/L ALT (12-78) U/L Alkaline Phosphatase (45-117) U/L Total Creatine Kinase (26-192) U/L CK-MB (CK-2) (0.5-3.6) ng/ml CK/CKMB % Calc (0-3.0) Troponin I (0-0.045) ng/ml Total Protein (6.4-8.2) gm/dl Albumin (3.4-5.0) gm/dl Globulin (2.5-4.0) gm/dl Albumin/Globulin Ratio (0.9-2) Blood Type B Positive Antibody Screen NEGATIVE Imaging Data Radiologist's Impression: Radiology results as stated below per my review and the radiologist's interpretation: SINGLE VIEW CHEST CLINICAL HISTORY: Dyspnea. FINDINGS: An AP, portable, upright chest radiograph is compared to chest x-ray and chest CT dated 05/09/2018. The examination is degraded by portable technique and patient rotation. The heart is enlarged. The pulmonary vasculature is noncongested. There is chronic elevation of the right hemidiaphragm. Scarring/atelectasis is seen at both lung bases. Is no evidence of superimposed airspace consolidation or large pleural effusion. No pneumothorax is seen. The skeletal structures are osteopenic. There are are numerous healed bilateral rib fractures. Advanced arthritic change is seen in the shoulders. IMPRESSION: Cardiomegaly with no acute cardiopulmonary abnormality. Electronically signed by: Tommy Walter M.D. 01/06/2019 12:08 PM ECG Data Attestation: I personally reviewed and interpreted this ECG as follows: Indication: SOB/dyspnea Rate (beats per minute): 72 Rhythm: normal sinus Findings: + RBBB; no ST depression, no ST elevation and no acute ischemic change Blood Pressure Blood Pressure Findings: Elevated blood pressure Blood Pressure Disposition: further management by hospitalist MDM Narrative This is a 63-year-old female who presents emergency department complaining of hypoxia. The patient was sent by her oncologist over concerns this patient is hypoxic. She was pancytopenic. She get received an hour-long breathing treatment here in the emergency department. I did discuss her case with the hospitalist service who agreed to admit the patient. Patient was in agreement with the treatment plan. Impression & Plan CKD (chronic kidney disease), stage III, Pancytopenia, Hypoxia Discharge Plan Visit Data *Final* Discharge Date/Time: 01/06/19 16:06 Chief Complaint: Shortness of Breath/Dyspnea Stated Complaint: CAN'T BREATHE, BLOOD PLATELETS PROBLEM ED Provider: Celestino Clifford Discharge Problem: CKD (chronic kidney disease), stage III, Pancytopenia, Hypoxia Patient Disposition: Admitted As Inpatient Discharge Instructions Interventions: ED Discharge Assessment Last Done: 01/06/19 16:06 The scribe's documentation has been prepared under my direction and personally reviewed by me in its entirety. I confirm that the note above accurately reflects all work, treatment, procedures, and medical decision making performed by me.
--- NOTE | 2019-01-07 17:38 | Hospitalist Progress Note ---
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 Patient did not tolerate Abemaciclib causing GI complaints--discontinued Immature platelet fraction: High Started on Decadron 20 mg daily for 4 days as per oncology Peripheral smear completed by Dr. Light in his office negative for schistocytes, therefore does not seem to be TTP Transfuse PRBCs, platelets as needed Monitor for nosebleed Eliquis for H/O B/L LE DVT--held UTI-POA Urine Cx:E.coli Continue Ceftriaxone Follow-up final cultures (3) Hypoxia: Resolved (4) Obesity hypoventilation syndrome: (5) TYE (obstructive sleep apnea): CXR:Cardiomegaly with no acute cardiopulmonary abnormality. Patient reports exertional shortness of breath recently and states breathing currently feels "quivery"; she attributes most of this to underlying anxiety and panic Hypoxia resolved (6) History of DVT (deep vein thrombosis): holding Eliquis due to pancytopenia, nose bleeding (7) Right-sided heart failure: currently euvolemic Is on Torsemide PRN (8) CKD (chronic kidney disease), stage III: Baseline creatinine ~ 1.2-1.3 Creatinine near baseline Monitor renal function Avoid nephrotoxic agents when able (9) DM type 2 (diabetes mellitus, type 2): hgb a1c 7.9 09/2018 Lantus/Novolog per protocol while hospitalized (10) Hypertension: Stable continue metoprolol (11) DVT prophylaxis: SCDs Re: Nose bleeds, Pancytopenia Subjective Patient is seen and examined at bedside Shortness of breath much improved Had nosebleeds this morning after bumping her nose Discussed with oncology today Plan to give 1 unit platelets today and start her on steroids for ITP Offers no other complaints Review of Systems Review of Systems: All systems reviewed & are unremarkable except as noted in HPI & below Physical Exam Physical Exam: Physical Exam: Vitals signs as noted above General Appearance:Obese, no apparent distress Head: normocephalic, Atraumatic Eyes: normal inspection, EOMI Neck: supple, Trachea midline Respiratory/Chest: Normal breath sounds, CTA Cardiovascular: S1, S2, No murmur Abdomen/GI:Soft, Non tender, Bowel sounds present Extremities/Musculoskelatal:normal inspection, + Leg edema Neurologic/Psych:AAOX3, grossly no focal neurological deficits Skin: normal color, warm Results & Data Vital Signs (Past 12 Hours) Vital Signs Temp Pulse Pulse Resp BP BP BP 01/07/19 15:18 36.5 C 81 18 144/80 H 01/07/19 10:40 36.5 C 78 20 148/81 H 01/07/19 09:30 36.6 C 78 18 164/82 H 01/07/19 09:15 36.6 C 78 20 163/85 H 01/07/19 09:00 36.5 C 73 22 170/72 H 01/07/19 08:42 36.9 C 69 20 176/76 H 01/07/19 07:03 36.7 C 81 18 165/85 H Pulse Ox 01/07/19 15:18 90 01/07/19 10:40 92 01/07/19 09:30 92 01/07/19 09:15 90 01/07/19 09:00 92 01/07/19 08:42 94 01/07/19 07:03 91 Laboratory Results Short CBC 01/07/19 Range/Units 07:01 WBC 4.69 L (4.8-10.8) K/uL Hgb 8.9 L (12.0-16.0) g/dL Hct 28.9 L (37-47) % Plt Count 12 L* (130-400) K/uL BMP 01/07/19 01/07/19 07:01 08:26 Sodium 139 Potassium 5.2 H D 4.8 Chloride 109 H Carbon Dioxide 25 BUN 50 H Creatinine 1.43 H Glucose 183 H Calcium 9.1 Urine 01/06/19 Range/Units 17:53 Urine Color Yellow Urine Appearance Cloudy A (Clear) Urine pH 5.0 (4.5-7.5) Ur Specific [place] 1.023 (1.000-1.030) Urine Protein 2+ H (Negative) Urine Glucose (UA) Negative (Negative)
[2019-01-07] MEDS: cefTRIAXone SODIUM 2,000 MG in DEXTROSE 5% 50 ML IV SCH (20:37)
[2019-01-07] MEDS: INSULIN GLARGINE SOLOSTAR 100 UNITS/ML 3 ML PEN SC SCH (20:38)
[2019-01-07] MEDS: LORazepam 1 MG TAB PO PRN (23:54)
[2019-01-07] MEDS: INFLUENZA VIRUS QUAD VACCINE 0.5 ML SYR IM ONE (23:55)
[2019-01-08] MEDS: INSULIN ASPART 100 UNITS/ML 3 ML PEN SC SCH ×6 (03:46→21:08)
[2019-01-08] MEDS: TOPIRAMATE 25 MG TAB PO SCH ×2 (07:12→20:48)
[2019-01-08] MEDS: METOPROLOL SUCC 25MG EXT REL TAB PO SCH ×2 (07:12→20:48)
[2019-01-08 08:12] LABS: BUN Creatinine Ratio 34.6 (10-20); Est GFR (African American) 44.7; Est GFR (Non-African American) 38.6
[2019-01-08 08:24] LABS: Hemoglobin 9.5 g/dL (12.0-16.0); Mean Corpuscular Hemoglobin 24.5 pg (25-34); Mean Corpuscular Hgb Conc 30.6 g/dL (32-36); Mean Corpuscular Volume 80.1 fL (80-100); Nucleated RBC # (auto) 0.39 K/uL (0-0); Nucleated RBC % (auto) 5.9 %; Platelet Count 17 K/uL (130-400); Platelet Estimate SIGNIFIC DECREASED (Normal); RDW Coefficient of Variation 19.7 % (11.5-14.5); RDW Standard Deviation 52.5 fL (36.4-46.3); Red Blood Count 3.87 M/uL (4.2-5.4); White Blood Count 6.68 K/uL (4.8-10.8)
[2019-01-08] MEDS: dexAMETHasone 4 MG TAB PO SCH (08:25)
[2019-01-08] MEDS: FEXOFENADINE HCL 180 MG TAB PO SCH (08:26)
[2019-01-08] MEDS: CHOLECALCIFEROL 1,000 UNITS TAB PO SCH (08:26)
[2019-01-08] MEDS: PANTOprazole 40 MG TAB PO SCH ×2 (08:26→20:48)
[2019-01-08] MEDS: DULOXETINE HCL 60 MG CAP PO SCH (08:26)
[2019-01-08] MEDS ORDERED: INSULIN GLARGINE SOLOSTAR 100 UNITS/ML 3 ML PEN SC SCH (09:00)
[2019-01-08] MEDS: OXYCODONE HCL 10 MG TABCR (OXYCONTIN) PO SCH ×2 (09:04→20:50)
[2019-01-08] MEDS ORDERED: TIZANIDINE HCL 4 MG TABLET PO PRN (09:05)
[2019-01-08] MEDS ORDERED: TORSEMIDE 10 MG TAB PO PRN (09:05)
--- NOTE | 2019-01-08 09:17 | Pharmacy Report ---
Glycemic Control Progress Note - Date of Service January 08, 2019 - Scope Glycemic Pharmacist consulted for glycemic control to write orders per [facility] inpatient glycemic control protocol. - Objective Accuchecks BSG(last 24 hours):: 01/06/19 01/06/19 01/07/19 16:28 20:04 11:14 Glucose POC Glucose 195 H 400 H* 177 H 01/07/19 01/07/19 01/07/19 16:59 20:08 23:43 Glucose POC Glucose 172 H 211 H 252 H 01/08/19 01/08/19 01/08/19 03:25 07:28 07:33 Glucose 171 H POC Glucose 173 H 181 H HbA1c:: Hemoglobin A1c 9.2 % (4.5-5.6) H 01/07/19 07:01 - Recent Pertinent Medications The patient is currently receiving: * Basal insulin: Lantus 30 units every 12 hours * Correctional Insulin: Novolog Correction per scale ACHS Goal Range: Low 100 mg/dL - High 140 mg/dL Correction Factor: 15 mg/dL/unit * Prandial insulin: Per carb ratio of 1 unit per 4 grams CHO consumed - Outpatient Anti-Diabetic Meds * Lantus 24-36 units qhs (based on sliding scale) (B-150: 24 units,151- 200: 30 units, > 200: 36 units) * Novolog 3 units AC + sliding scale insulin for BSG > 150 mg/dL * A1c = 9.2 % (01/07/19) * May be somewhat unreliable due to chronic anemia - Assessment & Plan ASSESSMENT: * See progress note from 01/07 for more background info, in short: * Pt receiving SQ basal bolus insulin regimen for hyperglycemia secondary to baseline DM (outpatient regimen on hold),stress/infection (EColi UTI on Rocephin IV), steroids (Dexamethasone 20mg PO daily x4 days per oncology, metastatic breast CA). * Patient is currently receiving an average of 114 units of insulin per day * 60 units of basal insulin * 54 units of prandial/correctional insulin * BSGs ranging 166 - 252 mg/dl over the past 24hrs * Changes needed to insulin regimen: * AM Fasting BSG = 181 mg/dl. This is in slightly above goal range for patient based on inpatient targets and co-morbidities, but mostly d/t steroid induced hyperglycemia. Basal dose already doubled from home dose, so no changes in basal at this time. * Post-prandial BSGs are elevated/BSGs rise throughout the day d/t steroids therefore need to tighten CF/CR * Additional notes / comments: Will need to significantly decrease insulin doses as needs decrease after steroids alex off PLAN FOR INPATIENT GLYCEMIC CONTROL: * Basal insulin * Lantus 30 units SQ QAM + 10-30 units HS based on BSG * Bolus insulin * NovoLog per scale ACHS or Q6hrs while NPO * Goal Range: Low 100 mg/dL - High 140 mg/dL * tighten: Correction Factor: 10 mg/dL/unit * tighten: Nutritional / Prandial insulin per carb ratio of 1 unit per 3 grams CHO consumed RECOMMENDATIONS FOR DISCHARGE: * unable to suggest any changes at this time with increased insulin needs on steroids as inpatient. * Please note that the plan above was derived based on current level of insulin resistance and hospital stress. These recommendations are appropriate for inpatient admission only. Plan of care upon discharge will need to be reassessed to avoid potential outpatient hypo/hyperglycemia. Thank you.
[2019-01-08] MEDS: HydrALAZINE 10 MG TAB PO PRN (10:10)
[2019-01-08] MEDS: INFLUENZA VIRUS QUAD VACCINE 0.5 ML SYR IM ONE (12:14)
--- NOTE | 2019-01-08 15:55 | Hospitalist Progress Note ---
Date of Service January 08, 2019 Assessment & Plan (1) Pancytopenia: Antineoplastic chemotherapy induced pancytopenia Monitor CBC Transfuse PRN (2) Metastatic breast cancer: Pancytopenia likely secondary to chemotherapy, ITP H/O metastatic breast cancer On 12/08, patient was started on Faslodex injections every 2 weeks and PO Abemaciclib. Patient did not tolerate Abemaciclib causing GI complaints--discontinued Immature platelet fraction: High Continue Decadron 20 mg daily # 2/4 as per oncology Peripheral smear completed by Dr. Light in his office negative for schistocytes, therefore does not seem to be TTP Transfuse PRBCs, platelets as needed Monitor for nosebleed Eliquis for H/O B/L LE DVT--held UTI-POA Urine Cx: Pansensitive E.coli Continue Ceftriaxone Day#3 Blood cultures: No growth to date (3) Hypoxia: Resolved (4) Obesity hypoventilation syndrome: (5) TYE (obstructive sleep apnea): CXR:Cardiomegaly with no acute cardiopulmonary abnormality. Patient reports exertional shortness of breath recently and states breathing currently feels "quivery"; she attributes most of this to underlying anxiety and panic Hypoxia resolved (6) History of DVT (deep vein thrombosis): holding Eliquis due to pancytopenia, nose bleeding (7) Right-sided heart failure: currently euvolemic Is on Torsemide PRN (8) CKD (chronic kidney disease), stage III: Baseline creatinine ~ 1.2-1.3 Creatinine near baseline Monitor renal function Avoid nephrotoxic agents when able (9) DM type 2 (diabetes mellitus, type 2): hgb a1c 7.9 09/2018 Lantus/Novolog per protocol while hospitalized (10) Hypertension: Stable continue metoprolol (11) DVT prophylaxis: SCDs Re: Nose bleeds, Pancytopenia Subjective Patient is seen and examined at bedside "I feel Gassy" No epistaxis today Platelets improved to 17 K Denies any chest pain, shortness of breath, dizziness, nausea, abdominal pain Offers no other complaints Review of Systems Review of Systems: All systems reviewed & are unremarkable except as noted in HPI & below Physical Exam Physical Exam: Physical Exam: Vitals signs as noted above General Appearance:Obese, no apparent distress Head: normocephalic, Atraumatic Eyes: normal inspection, EOMI Neck: supple, Trachea midline Respiratory/Chest: Normal breath sounds, CTA Cardiovascular: S1, S2, No murmur Abdomen/GI:Soft, Non tender, Bowel sounds present Extremities/Musculoskelatal:normal inspection, + Leg edema Neurologic/Psych:AAOX3, grossly no focal neurological deficits Skin: normal color, warm Results & Data Vital Signs (Past 12 Hours) Vital Signs Temp Pulse Resp BP BP Pulse Ox 01/08/19 15:11 36.6 C 65 18 160/81 H 90 01/08/19 12:19 65 176/81 H 01/08/19 10:10 54 L 191/87 H 01/08/19 07:15 36.3 C L 54 L 20 198/104 H 92 01/08/19 07:11 192/98 H Laboratory Results Short CBC 01/08/19 Range/Units 07:28 WBC 6.68 (4.8-10.8) K/uL Hgb 9.5 L (12.0-16.0) g/dL Hct 31.0 L (37-47) % Plt Count 17 L* (130-400) K/uL BMP 01/08/19 07:28 Sodium 140 Potassium 5.0 Chloride 108 H Carbon Dioxide 27 BUN 50 H Creatinine 1.44 H Glucose 171 H Calcium 9.0
[2019-01-08] MEDS: LORazepam 1 MG TAB PO PRN (20:50)
[2019-01-08] MEDS: INSULIN GLARGINE SOLOSTAR 100 UNITS/ML 3 ML PEN SC SCH ×2 (20:51→21:07)
[2019-01-08] MEDS: cefTRIAXone SODIUM 2,000 MG in DEXTROSE 5% 50 ML IV SCH (20:54)
[2019-01-09 07:10] LABS: Hematocrit (blood only) 30.6 % (37-47); Hemoglobin 9.4 g/dL (12.0-16.0); Mean Corpuscular Hemoglobin 24.9 pg (25-34); Mean Corpuscular Hgb Conc 30.7 g/dL (32-36); Nucleated RBC # (auto) 0.64 K/uL (0-0); Nucleated RBC % (auto) 7.4 %; Platelet Count 17 K/uL (130-400); RDW Coefficient of Variation 19.9 % (11.5-14.5); RDW Standard Deviation 54.3 fL (36.4-46.3); Red Blood Count 3.78 M/uL (4.2-5.4); White Blood Count 8.69 K/uL (4.8-10.8)
[2019-01-09 07:14] LABS: BUN Creatinine Ratio 37.8 (10-20); Calcium 8.7 mg/dl (8.5-10.1); Creatinine Clr Calc Pharmacy 45.9 ml/min; Est GFR (African American) 40.2; Est GFR (Non-African American) 34.7; Potassium 5.3 mmol/L (3.5-5.1)
[2019-01-09] MEDS: INSULIN ASPART 100 UNITS/ML 3 ML PEN SC SCH ×4 (08:20→20:13)
[2019-01-09] MEDS: NovoLIN-N (NPH) PER UNIT CHARGE SQ SCH (08:21)
[2019-01-09] MEDS: DULOXETINE HCL 60 MG CAP PO SCH (08:37)
[2019-01-09] MEDS: OXYCODONE HCL 10 MG TABCR (OXYCONTIN) PO SCH ×2 (08:37→20:17)
[2019-01-09] MEDS: dexAMETHasone 4 MG TAB PO SCH (08:38)
[2019-01-09] MEDS: CHOLECALCIFEROL 1,000 UNITS TAB PO SCH (08:40)
[2019-01-09] MEDS: TOPIRAMATE 25 MG TAB PO SCH ×2 (08:41→20:18)
[2019-01-09] MEDS: FEXOFENADINE HCL 180 MG TAB PO SCH (08:41)
[2019-01-09] MEDS: METOPROLOL SUCC 25MG EXT REL TAB PO SCH ×2 (08:42→20:19)
[2019-01-09] MEDS: PANTOprazole 40 MG TAB PO SCH ×2 (08:42→20:19)
--- NOTE | 2019-01-09 12:08 | Pharmacy Report ---
Glycemic Control Progress Note - Date of Service January 09, 2019 - Scope Glycemic Pharmacist consulted for glycemic control to write orders per [facility] inpatient glycemic control protocol. - Objective Accuchecks BSG(last 24 hours):: 01/08/19 01/08/19 01/09/19 16:24 21:02 06:15 Glucose 146 H POC Glucose 214 H 278 H 01/09/19 07:40 Glucose POC Glucose 140 H HbA1c:: Hemoglobin A1c 9.2 % (4.5-5.6) H 01/07/19 07:01 - Recent Pertinent Medications The patient is currently receiving: * Basal insulin: Lantus 30 units every 12 hours * Correctional Insulin: Novolog Correction per scale ACHS Goal Range: Low 100 mg/dL - High 140 mg/dL Correction Factor: 10 mg/dL/unit * Prandial insulin: Per carb ratio of 1 unit per 3 grams CHO consumed - Outpatient Anti-Diabetic Meds * Lantus 24-36 units qhs (based on sliding scale) (B-150: 24 units,151- 200: 30 units, > 200: 36 units) * Novolog 3 units AC + sliding scale insulin for BSG > 150 mg/dL * A1c = 9.2 % (01/07/19) * May be somewhat unreliable due to chronic anemia - Assessment & Plan ASSESSMENT: * See progress note from 01/07 for more background info, in short: * Pt receiving SQ basal bolus insulin regimen for hyperglycemia secondary to baseline DM (outpatient regimen on hold), stress/infection (E. coli UTI on IV Rocephin), and steroids (Dexamethasone 20mg PO daily x4 days per oncology, metastatic breast CA). * Patient is currently received a total of 136 units of insulin yesterday * 60 units of basal insulin * 76 units of prandial/correctional insulin * BSGs ranging 173 - 278 mg/dl over the past 24hrs * Changes needed to insulin regimen: * AM Fasting BSG at goal = 140 mg/dl. * Post-prandial BSGs are elevated/BSGs rise throughout the day despite tightening CF/CR yesterday. This is most likely secondary to steroid- induced hyperglycemia aligning with the kinetics of dexamethasone * Additional notes / comments: Given elevated BSGs and consistent rise throughout the day, will change AM Lantus to NPH 48 units (0.4 units/kg) given with dexamethasone until the steroid is discontinued PLAN FOR INPATIENT GLYCEMIC CONTROL: * Basal insulin * Add NPH 48 units daily (to be given with dexamethasone) * Continue Lantus 10-30 units SQ HS based on BSG * Bolus insulin * NovoLog per scale ACHS * Goal Range: Low 100 mg/dL - High 140 mg/dL * Continue Correction Factor: 10 mg/dL/unit * Continue Nutritional / Prandial insulin per carb ratio of 1 unit per 3 grams CHO consumed RECOMMENDATIONS FOR DISCHARGE: * unable to suggest any changes at this time with increased insulin needs on steroids as inpatient * Please note that the plan above was derived based on current level of insulin resistance and hospital stress. These recommendations are appropriate for inpatient admission only. Plan of care upon discharge will need to be reassessed to avoid potential outpatient hypo/hyperglycemia. Thank you.
--- NOTE | 2019-01-09 15:24 | Hospitalist Progress Note ---
Date of Service January 09, 2019 Assessment & Plan (1) Pancytopenia: Antineoplastic chemotherapy induced pancytopenia Monitor CBC Transfuse PRN (2) Metastatic breast cancer: Pancytopenia likely secondary to chemotherapy, ITP H/O metastatic breast cancer On 12/08, patient was started on Faslodex injections every 2 weeks and PO Abemaciclib. Patient did not tolerate Abemaciclib causing GI complaints--discontinued Immature platelet fraction: High Continue Decadron 20 mg daily # 3/4 as per oncology Peripheral smear completed by Dr. Light in his office negative for schistocytes, therefore does not seem to be TTP S/P 1 unit platelets treansfusion No recurrence of nosebleed Eliquis for H/O B/L LE DVT--held UTI-POA Urine Cx: Pansensitive E.coli Continue Ceftriaxone Day#4/5 Blood cultures: No growth to date (3) Hypoxia: Resolved (4) Obesity hypoventilation syndrome: (5) TYE (obstructive sleep apnea): CXR:Cardiomegaly with no acute cardiopulmonary abnormality. Patient reports exertional shortness of breath recently and states breathing currently feels "quivery"; she attributes most of this to underlying anxiety and panic Hypoxia resolved (6) History of DVT (deep vein thrombosis): holding Eliquis due to pancytopenia, nose bleeding (7) Right-sided heart failure: currently euvolemic Is on Torsemide PRN (8) CKD (chronic kidney disease), stage III: Baseline creatinine ~ 1.2-1.3 Creatinine near baseline Monitor renal function Avoid nephrotoxic agents when able (9) DM type 2 (diabetes mellitus, type 2): hgb a1c 7.9 09/2018 Lantus/Novolog per protocol while hospitalized (10) Hypertension: Stable continue metoprolol (11) DVT prophylaxis: SCDs Re: Nose bleeds, Pancytopenia Subjective Patient is seen and examined at bedside No significant change from yesterday No recurrence of bleeding Platelets stable at 17 K Discussed with oncology Dr. Light today No plan for platelet transfusion Denies any chest pain, shortness of breath, dizziness, nausea, abdominal pain Review of Systems Review of Systems: All systems reviewed & are unremarkable except as noted in HPI & below Physical Exam Physical Exam: Physical Exam: Vitals signs as noted above General Appearance:Obese, no apparent distress Head: normocephalic, Atraumatic Eyes: normal inspection, EOMI Neck: supple, Trachea midline Respiratory/Chest: Normal breath sounds, CTA Cardiovascular: S1, S2, No murmur Abdomen/GI:Soft, Non tender, Bowel sounds present Extremities/Musculoskelatal:normal inspection, + Leg edema Neurologic/Psych:AAOX3, grossly no focal neurological deficits Skin: normal color, warm Results & Data Vital Signs (Past 12 Hours) Vital Signs Temp Pulse Resp BP BP Pulse Ox 01/09/19 15:02 36.7 C 63 20 165/85 H 93 01/09/19 07:09 36.7 C 65 20 162/83 H 93 Laboratory Results Short CBC 01/09/19 Range/Units 06:15 WBC 8.69 (4.8-10.8) K/uL Hgb 9.4 L (12.0-16.0) g/dL Hct 30.6 L (37-47) % Plt Count 17 L* (130-400) K/uL BMP 01/09/19 01/09/19 06:15 09:52 Sodium 141 Potassium 5.3 H 4.5 D Chloride 108 H Carbon Dioxide 30 BUN 59 H Creatinine 1.57 H Glucose 146 H Calcium 8.7
[2019-01-09] MEDS: INSULIN GLARGINE SOLOSTAR 100 UNITS/ML 3 ML PEN SC SCH (20:12)
[2019-01-09] MEDS: cefTRIAXone SODIUM 2,000 MG in DEXTROSE 5% 50 ML IV SCH (20:26)
[2019-01-09] MEDS: LORazepam 1 MG TAB PO PRN (23:37)
[2019-01-10 07:40] LABS: Calcium 8.7 mg/dl (8.5-10.1); Creatinine Clr Calc Pharmacy 49.7 ml/min; Est GFR (African American) 44.3; Est GFR (Non-African American) 38.2; Potassium 4.5 mmol/L (3.5-5.1)
[2019-01-10] MEDS: METOPROLOL SUCC 25MG EXT REL TAB PO SCH ×2 (07:49→20:54)
[2019-01-10 07:50] LABS: Hematocrit (blood only) 31.9 % (37-47); Hemoglobin 9.7 g/dL (12.0-16.0); Mean Corpuscular Hemoglobin 24.3 pg (25-34); Mean Corpuscular Hgb Conc 30.4 g/dL (32-36); Mean Corpuscular Volume 79.9 fL (80-100); Nucleated RBC # (auto) 0.83 K/uL (0-0); Nucleated RBC % (auto) 9.9 %; Platelet Count 16 K/uL (130-400); Platelet Estimate SIGNIFIC DECREASED (Normal); RDW Coefficient of Variation 20.2 % (11.5-14.5); RDW Standard Deviation 53.8 fL (36.4-46.3); Red Blood Count 3.99 M/uL (4.2-5.4); White Blood Count 8.46 K/uL (4.8-10.8)
[2019-01-10] MEDS: LORazepam 1 MG TAB PO PRN ×2 (07:52→19:45)
[2019-01-10] MEDS: INSULIN ASPART 100 UNITS/ML 3 ML PEN SC SCH ×4 (08:55→20:57)
[2019-01-10] MEDS: CHOLECALCIFEROL 1,000 UNITS TAB PO SCH (08:56)
[2019-01-10] MEDS: dexAMETHasone 4 MG TAB PO SCH (08:56)
[2019-01-10] MEDS: NovoLIN-N (NPH) PER UNIT CHARGE SQ SCH (08:56)
[2019-01-10] MEDS: PANTOprazole 40 MG TAB PO SCH ×2 (08:57→20:53)
[2019-01-10] MEDS: DULOXETINE HCL 60 MG CAP PO SCH (08:57)
[2019-01-10] MEDS: TOPIRAMATE 25 MG TAB PO SCH ×2 (08:57→20:53)
[2019-01-10] MEDS: FEXOFENADINE HCL 180 MG TAB PO SCH (08:58)
[2019-01-10] MEDS ORDERED: NovoLIN-N (NPH) PER UNIT CHARGE SQ SCH (09:00)
[2019-01-10] MEDS: OXYCODONE HCL 10 MG TABCR (OXYCONTIN) PO SCH ×2 (09:02→20:52)
--- NOTE | 2019-01-10 14:25 | Pharmacy Report ---
Pharmacy Glycemic Short Note 2 - Date of Service January 10, 2019 - Glycemic Short BSG Results (Last 24 hours): 01/09/19 01/09/19 01/10/19 16:32 19:53 06:37 Glucose 93 POC Glucose 160 H 177 H 01/10/19 01/10/19 07:33 11:26 Glucose POC Glucose 91 125 H The patient is currently receiving: * Basal insulin: Lantus 10-30 units qHS + NPH 48 units qAM * Correctional Insulin: Novolog Correction per scale ACHS Goal Range: Low 100 mg/dL - High 140 mg/dL Correction Factor: 10 mg/dL/unit * Prandial insulin: Per carb ratio of 1 unit per 3 grams CHO consumed - Outpatient Anti-Diabetic Meds * Lantus 24-36 units qhs (based on sliding scale) (B-150: 24 units,151- 200: 30 units, > 200: 36 units) * Novolog 3 units AC + sliding scale insulin for BSG > 150 mg/dL * A1c = 9.2 % (01/07/19) * May be somewhat unreliable due to chronic anemia ASSESSMENT: * See progress note from 01/07 for more background info, in short: * Pt receiving SQ basal bolus insulin regimen for hyperglycemia secondary to baseline DM (outpatient regimen on hold), stress/infection (E. coli UTI), and steroids (Dexamethasone 20mg PO daily x4 days per oncology, metastatic breast CA). * Patient received a total of 98 units of insulin yesterday * 68 units of basal insulin * 30 units of prandial/correctional insulin * BSGs ranging 140 - 177 mg/dl over the past 24hrs * Changes needed to insulin regimen: * AM Fasting BSG at goal = 91 mg/dl. NPH will be discontinued since patient received last dose of dexamethasone today. May be able to resume home dose of Lantus on 01/11. Will work on transitioning Lantus administration from HS to AM to mimic home regimen. * Post-prandial BSGs have significantly improved over the past 24 hours. I anticipate this trend to continue since dexamethasone therapy is complete. PLAN FOR INPATIENT GLYCEMIC CONTROL: * Basal insulin * Discontinue NPH - last dose given 01/10 AM * Continue Lantus 10-30 units SQ HS based on BSG - will begin transition to qAM dosing on 01/11 * Bolus insulin * NovoLog per scale ACHS * Goal Range: Low 100 mg/dL - High 140 mg/dL * Continue Correction Factor: 10 mg/dL/unit - change to 15 mg/dL/unit on 01/11 * Continue Nutritional / Prandial insulin per carb ratio of 1 unit per 3 grams CHO consumed- change to 1 unit per 5 grams CHO on 01/11 RECOMMENDATIONS FOR DISCHARGE: * unable to suggest any changes at this time with increased insulin needs on steroids as inpatient Thank you.
--- NOTE | 2019-01-10 16:19 | Hospitalist Progress Note ---
Date of Service January 10, 2019 Assessment & Plan (1) Pancytopenia: Antineoplastic chemotherapy induced pancytopenia Monitor CBC Transfuse PRN (2) Metastatic breast cancer: Pancytopenia likely secondary to chemotherapy, ITP H/O metastatic breast cancer On 12/08, patient was started on Faslodex injections every 2 weeks and PO Abemaciclib. Patient did not tolerate Abemaciclib causing GI complaints--discontinued Immature platelet fraction: High Continue Decadron 20 mg daily # 4/ as per oncology Peripheral smear completed by Dr. Light in his office negative for schistocytes, therefore does not seem to be TTP S/P 1 unit platelets transfusion No bleeding issues currently Eliquis for H/O B/L LE DVT--held Monitor CBC UTI-POA Urine Cx: Pansensitive E.coli Continue Ceftriaxone Day#5 Blood cultures: No growth to date (3) Hypoxia: Resolved (4) Obesity hypoventilation syndrome: (5) TYE (obstructive sleep apnea): CXR:Cardiomegaly with no acute cardiopulmonary abnormality. Patient reports exertional shortness of breath recently and states breathing currently feels "quivery"; she attributes most of this to underlying anxiety and panic Hypoxia resolved (6) History of DVT (deep vein thrombosis): holding Eliquis due to pancytopenia, nose bleeding (7) Right-sided heart failure: currently euvolemic Is on Torsemide PRN (8) CKD (chronic kidney disease), stage III: Baseline creatinine ~ 1.2-1.3 Creatinine near baseline Monitor renal function Avoid nephrotoxic agents when able (9) DM type 2 (diabetes mellitus, type 2): hgb a1c 7.9 09/2018 Lantus/Novolog per protocol while hospitalized (10) Hypertension: Stable continue metoprolol (11) DVT prophylaxis: SCDs Re: Nose bleeds, Pancytopenia Code Status Full Code Disposition Patient prefers to be discharged home Subjective Patient is seen and examined at bedside No new complaints No bleeding issues Platelets 16 K today Denies any chest pain, shortness of breath, dizziness, nausea, abdominal pain Had BM today Review of Systems Review of Systems: All systems reviewed & are unremarkable except as noted in HPI & below Physical Exam Physical Exam: Physical Exam: Vitals signs as noted above General Appearance:Obese, no apparent distress Head: normocephalic, Atraumatic Eyes: normal inspection, EOMI Neck: supple, Trachea midline Respiratory/Chest: Normal breath sounds, CTA Cardiovascular: S1, S2, No murmur Abdomen/GI:Soft, Non tender, Bowel sounds present Extremities/Musculoskelatal:normal inspection, + Leg edema Neurologic/Psych:AAOX3, grossly no focal neurological deficits Skin: normal color, warm Results & Data Vital Signs (Past 12 Hours) Vital Signs Temp Pulse Resp BP BP Pulse Ox 01/10/19 14:46 36.7 C 72 20 154/77 H 91 01/10/19 09:09 156/83 H 01/10/19 07:00 36.7 C 65 22 180/91 H 93 Laboratory Results Short CBC 01/10/19 Range/Units 06:37 WBC 8.46 (4.8-10.8) K/uL Hgb 9.7 L (12.0-16.0) g/dL Hct 31.9 L (37-47) % Plt Count 16 L* (130-400) K/uL BMP 01/10/19 06:37 Sodium 141 Potassium 4.5 Chloride 108 H Carbon Dioxide 29 BUN 62 H Creatinine 1.45 H Glucose 93 Calcium 8.7
[2019-01-10] MEDS: cefTRIAXone SODIUM 2,000 MG in DEXTROSE 5% 50 ML IV SCH (20:49)
[2019-01-10] MEDS: INSULIN GLARGINE SOLOSTAR 100 UNITS/ML 3 ML PEN SC SCH (20:55)
[2019-01-11 07:28] LABS: Hemoglobin 10.2 g/dL (12.0-16.0); Mean Corpuscular Hemoglobin 25.1 pg (25-34); Mean Corpuscular Hgb Conc 30.9 g/dL (32-36); Mean Corpuscular Volume 81.1 fL (80-100); Nucleated RBC # (auto) 0.88 K/uL (0-0); Nucleated RBC % (auto) 10.9 %; Platelet Count 12 K/uL (130-400); Platelet Estimate SIGNIFIC DECREASED (Normal); RDW Coefficient of Variation 20.4 % (11.5-14.5); Red Blood Count 4.07 M/uL (4.2-5.4); White Blood Count 8.08 K/uL (4.8-10.8)
[2019-01-11] MEDS: HydrALAZINE 10 MG TAB PO PRN ×2 (07:44→15:01)
[2019-01-11] MEDS: PANTOprazole 40 MG TAB PO SCH ×2 (07:46→20:43)
[2019-01-11] MEDS: DULOXETINE HCL 60 MG CAP PO SCH (09:15)
[2019-01-11] MEDS: METOPROLOL SUCC 25MG EXT REL TAB PO SCH ×2 (09:15→20:43)
[2019-01-11] MEDS: CHOLECALCIFEROL 1,000 UNITS TAB PO SCH (09:15)
[2019-01-11] MEDS: OXYCODONE HCL 10 MG TABCR (OXYCONTIN) PO SCH ×2 (09:15→20:50)
[2019-01-11] MEDS: TOPIRAMATE 25 MG TAB PO SCH ×2 (09:15→20:43)
[2019-01-11] MEDS: FEXOFENADINE HCL 180 MG TAB PO SCH (09:15)
[2019-01-11] MEDS: INSULIN ASPART 100 UNITS/ML 3 ML PEN SC SCH ×4 (09:46→20:42)
[2019-01-11] MEDS: IMMUNE GLOB-GAMUNEX HUMAN 200 ML IV SCH ×3 (12:29→19:05)
[2019-01-11] MEDS ORDERED: GAMUNEX C IV ONE (13:57)
--- NOTE | 2019-01-11 15:10 | Pharmacy Report ---
Pharmacy Glycemic Short Note 2 - Date of Service January 11, 2019 - Glycemic Short BSG Results (Last 24 hours): 01/10/19 01/10/19 01/11/19 16:31 19:51 07:36 POC Glucose 170 H 187 H 68 L* 01/11/19 01/11/19 01/11/19 07:37 08:04 11:56 POC Glucose 64 L* 84 94 The patient is currently receiving: * Basal insulin: Lantus 20 units qHS * Correctional Insulin: Novolog Correction per scale ACHS Goal Range: Low 100 mg/dL - High 140 mg/dL Correction Factor: 15 mg/dL/unit * Prandial insulin: Per carb ratio of 1 unit per 5 grams CHO consumed - Outpatient Anti-Diabetic Meds * Lantus 24-36 units qhs (based on sliding scale) (B-150: 24 units,151- 200: 30 units, > 200: 36 units) * Novolog 3 units AC + sliding scale insulin for BSG > 150 mg/dL * A1c = 9.2 % (01/07/19) * May be somewhat unreliable due to chronic anemia ASSESSMENT: * See progress note from 01/07 for more background info, in short: * Pt receiving SQ basal bolus insulin regimen for hyperglycemia secondary to baseline DM (outpatient regimen on hold), stress/infection (E. coli UTI). Last dose of dexamethasone was administered on 01/10. * Patient received a total of 135 units of insulin yesterday * 68 units of basal insulin * 67 units of prandial/correctional insulin * BSGs ranging 91 - 187 mg/dl over the past 24hrs * Changes needed to insulin regimen: * AM Fasting BSG at goal = 68 mg/dl. Lantus scale will be decreased by ~25%. I held off on transitioning Lantus administration from HS to AM due to morning hypoglycemia. * Post-prandial BSGs remain below goal despite loosening Novolog CF/CR to 27/08 starting this AM. I will further loosen. PLAN FOR INPATIENT GLYCEMIC CONTROL: * Basal insulin * Lantus per scale SQ HS: * 10 units for BSG < 110 * 15 units for BSG 110-180 * 20 units for BSG > 180 * Bolus insulin * NovoLog per scale ACHS * Goal Range: Low 100 mg/dL - High 140 mg/dL * Continue Correction Factor: 20 mg/dL/unit * Continue Nutritional / Prandial insulin per carb ratio of 1 unit per 6 grams CHO consumed * I will add a check at midnight per I suspect BSGs will start to rebound at some point Thank you.
--- NOTE | 2019-01-11 16:21 | Hospitalist Progress Note ---
Date of Service January 11, 2019 Assessment & Plan (1) Pancytopenia: Antineoplastic chemotherapy induced pancytopenia Monitor CBC Transfuse PRN WBC, RBC count improved Platelet count trending down (2) Metastatic breast cancer: Pancytopenia likely secondary to chemotherapy, ITP H/O metastatic breast cancer On 12/08, patient was started on Faslodex injections every 2 weeks and PO Abemaciclib. Patient did not tolerate Abemaciclib causing GI complaints--discontinued Immature platelet fraction: High Decadron 20 mg daily # 4/ as per oncology Peripheral smear completed by Dr. Light in his office negative for schistocytes, therefore does not seem to be TTP S/P 1 unit platelets transfusion No bleeding issues currently Eliquis for H/O B/L LE DVT--held Monitor CBC No improvement of platelet count with steroids Started on IVIGs Day # 1/2 as per Oncology monitor renal function UTI-POA Urine Cx: Pansensitive E.coli Completed Ceftriaxone Day#5/ Blood cultures: No growth to date (3) Hypoxia: Resolved (4) Obesity hypoventilation syndrome: (5) TYE (obstructive sleep apnea): CXR:Cardiomegaly with no acute cardiopulmonary abnormality. Patient reports exertional shortness of breath recently and states breathing currently feels "quivery"; she attributes most of this to underlying anxiety and panic Hypoxia resolved (6) History of DVT (deep vein thrombosis): holding Eliquis due to Thrombocytopenia, anemia, nose bleeding (7) Right-sided heart failure: currently euvolemic Is on Torsemide PRN (8) CKD (chronic kidney disease), stage III: Baseline creatinine ~ 1.2-1.3 Creatinine near baseline Monitor renal function Avoid nephrotoxic agents when able (9) DM type 2 (diabetes mellitus, type 2): hgb a1c 7.9 09/2018 Lantus/Novolog per protocol while hospitalized (10) Hypertension: Stable continue metoprolol (11) DVT prophylaxis: SCDs Re: Nose bleeds, Pancytopenia Code Status Full Code Disposition Patient prefers to be discharged home when stable Subjective Patient is seen and examined at bedside States feeling tired Platelet count trending down No bleeding issues Discussed with Dr.Nilesh Light today --Recommended 2 day course of IVIGs Denies any chest pain, shortness of breath, dizziness, nausea, abdominal pain Review of Systems Review of Systems: All systems reviewed & are unremarkable except as noted in HPI & below Physical Exam Physical Exam: Physical Exam: Vitals signs as noted above General Appearance:Obese, no apparent distress Head: normocephalic, Atraumatic Eyes: normal inspection, EOMI Neck: supple, Trachea midline Respiratory/Chest: Normal breath sounds, CTA Cardiovascular: S1, S2, No murmur Abdomen/GI:Soft, Non tender, Bowel sounds present Extremities/Musculoskelatal:normal inspection, + Leg edema Neurologic/Psych:AAOX3, grossly no focal neurological deficits Skin: normal color, warm Results & Data Vital Signs (Past 12 Hours) Vital Signs Temp Pulse Resp BP BP Pulse Ox 01/11/19 15:43 154/88 H 01/11/19 15:00 36.4 C L 66 20 181/90 H 96 01/11/19 11:33 36.8 C 67 20 165/88 H 94 01/11/19 07:17 36.8 C 66 20 171/90 H 167/79 H 92 Laboratory Results Short CBC 01/11/19 Range/Units 06:20 WBC 8.08 (4.8-10.8) K/uL Hgb 10.2 L (12.0-16.0) g/dL Hct 33.0 L (37-47) % Plt Count 12 L* (130-400) K/uL
[2019-01-11] MEDS: INSULIN GLARGINE SOLOSTAR 100 UNITS/ML 3 ML PEN SC SCH (20:44)
[2019-01-11] MEDS: LORazepam 1 MG TAB PO PRN (22:06)
[2019-01-12] MEDS: HYDROmorphone HCL 2 MG TAB PO PRN (05:00)
[2019-01-12 07:09] LABS: BUN Creatinine Ratio 38.9 (10-20); Calcium 8.2 mg/dl (8.5-10.1); Est GFR (African American) 50.1; Est GFR (Non-African American) 43.2; Potassium 4.3 mmol/L (3.5-5.1)
[2019-01-12 07:13] LABS: Hematocrit (blood only) 30.9 % (37-47); Hemoglobin 9.6 g/dL (12.0-16.0); Mean Corpuscular Hemoglobin 25.1 pg (25-34); Mean Corpuscular Hgb Conc 31.1 g/dL (32-36); Mean Corpuscular Volume 80.9 fL (80-100); Nucleated RBC # (auto) 0.41 K/uL (0-0); Nucleated RBC % (auto) 8.1 %; Platelet Count 19 K/uL (130-400); Platelet Estimate SIGNIFIC DECREASED (Normal); RDW Coefficient of Variation 20.8 % (11.5-14.5); RDW Standard Deviation 56.9 fL (36.4-46.3); Red Blood Count 3.82 M/uL (4.2-5.4)
[2019-01-12] MEDS: TOPIRAMATE 25 MG TAB PO SCH ×2 (08:33→20:33)
[2019-01-12] MEDS: PANTOprazole 40 MG TAB PO SCH ×2 (08:33→20:33)
[2019-01-12] MEDS: DULOXETINE HCL 60 MG CAP PO SCH (08:33)
[2019-01-12] MEDS: OXYCODONE HCL 10 MG TABCR (OXYCONTIN) PO SCH ×2 (08:33→20:30)
[2019-01-12] MEDS: METOPROLOL SUCC 25MG EXT REL TAB PO SCH ×2 (08:33→20:33)
[2019-01-12] MEDS: FEXOFENADINE HCL 180 MG TAB PO SCH (08:33)
[2019-01-12] MEDS: CHOLECALCIFEROL 1,000 UNITS TAB PO SCH (08:33)
[2019-01-12] MEDS: INSULIN ASPART 100 UNITS/ML 3 ML PEN SC SCH ×4 (08:35→21:16)
--- NOTE | 2019-01-12 10:35 | Pharmacy Report ---
Pharmacy Glycemic Short Note 2 - Date of Service January 12, 2019 - Glycemic Short BSG Results (Last 24 hours): 01/11/19 01/11/19 01/11/19 11:56 15:55 20:18 Glucose POC Glucose 94 104 H 99 01/12/19 01/12/19 06:16 07:40 Glucose 62 L POC Glucose 72 The patient is currently receiving: * Basal insulin: Lantus 20 units qHS * Correctional Insulin: Novolog Correction per scale ACHS Goal Range: Low 100 mg/dL - High 140 mg/dL Correction Factor: 15 mg/dL/unit * Prandial insulin: Per carb ratio of 1 unit per 5 grams CHO consumed - Outpatient Anti-Diabetic Meds * Lantus 24-36 units qhs (based on sliding scale) (B-150: 24 units,151- 200: 30 units, > 200: 36 units) * Novolog 3 units AC + sliding scale insulin for BSG > 150 mg/dL * A1c = 9.2 % (01/07/19) * May be somewhat unreliable due to chronic anemia ASSESSMENT: * See progress note from 01/07 for more background info, in short: * Recently finished course of ceftriaxone for UTI (last dose 01/11/19) * Last dose of dexamethasone 20 mg PO daily on 01/10/19 * Insulin needs significantly reduced since discontinuation of dexamethasone * Patient received a total of 24 units of insulin yesterday * 10 units of basal insulin * 14 units of prandial/correctional insulin * BSGs ranging 62-104 mg/dl over the past 24hrs * Changes needed to insulin regimen: * AM Fasting BSG at goal = 72 mg/dl. Received 10 units of Lantus last evening. * Post-prandial BSGs remain below goal despite loosening Novolog CF/CR to 20/6. Will further loosen. PLAN FOR INPATIENT GLYCEMIC CONTROL: * Basal insulin: Lantus per scale SQ HS * BSG < 110 MG/DL: 5 units * BSG 110 MG/DL OR ABOVE: 10 units * Bolus insulin - loosen * NovoLog per scale ACHS * Goal Range: Low 100 mg/dL - High 140 mg/dL * Continue Correction Factor: 25 mg/dL/unit * Continue Nutritional / Prandial insulin per carb ratio of 1 unit per 8 grams CHO consumed Thank you.
[2019-01-12] MEDS: IMMUNE GLOB-GAMUNEX HUMAN 200 ML IV SCH ×3 (13:08→18:21)
[2019-01-12] MEDS ORDERED: GAMUNEX C IV ONE (13:57)
--- NOTE | 2019-01-12 17:45 | Hospitalist Progress Note ---
Date of Service January 12, 2019 Assessment & Plan (1) Pancytopenia: Antineoplastic chemotherapy induced pancytopenia Monitor CBC Transfuse PRN WBC, RBC count improved Platelet count slowly improving after starting IVIG's (2) Metastatic breast cancer: Pancytopenia likely secondary to chemotherapy, ITP H/O metastatic breast cancer On 12/08, patient was started on Faslodex injections every 2 weeks and PO Abemaciclib. Patient did not tolerate Abemaciclib causing GI complaints--discontinued Immature platelet fraction: High Decadron 20 mg daily # 4/4 as per oncology Peripheral smear completed by Dr. Light in his office negative for schistocytes, therefore does not seem to be TTP S/P 1 unit platelets transfusion No bleeding issues currently Eliquis for H/O B/L LE DVT--held No improvement of platelet count with steroids Continue IVIGs Day # 2/2 as per Oncology monitor renal function--stable Continue to monitor CBC UTI-POA Urine Cx: Pansensitive E.coli Completed Ceftriaxone Day#5/ Blood cultures: No growth to date (3) Hypoxia: Resolved (4) Obesity hypoventilation syndrome: (5) TYE (obstructive sleep apnea): CXR:Cardiomegaly with no acute cardiopulmonary abnormality. Patient reports exertional shortness of breath recently and states breathing currently feels "quivery"; she attributes most of this to underlying anxiety and panic Hypoxia resolved (6) History of DVT (deep vein thrombosis): holding Eliquis due to Thrombocytopenia, anemia, nose bleeding (7) Right-sided heart failure: currently euvolemic Is on Torsemide PRN (8) CKD (chronic kidney disease), stage III: Baseline creatinine ~ 1.2-1.3 Creatinine near baseline Monitor renal function Avoid nephrotoxic agents when able (9) DM type 2 (diabetes mellitus, type 2): hgb a1c 7.9 09/2018 Lantus/Novolog per protocol while hospitalized (10) Hypertension: Stable continue metoprolol (11) DVT prophylaxis: SCDs Re: Nose bleeds, Pancytopenia Code Status Full Code Disposition Patient prefers to be discharged home when stable Subjective Patient is seen and examined at bedside Feels much better today Platelet count slowly improving Plan to give immunoglobulins today No new complaints No bleeding issues Denies any chest pain, shortness of breath, dizziness, nausea, abdominal pain Review of Systems Review of Systems: All systems reviewed & are unremarkable except as noted in HPI & below Physical Exam Physical Exam: Physical Exam: Vitals signs as noted above General Appearance:Obese, no apparent distress Head: normocephalic, Atraumatic Eyes: normal inspection, EOMI Neck: supple, Trachea midline Respiratory/Chest: Normal breath sounds, CTA Cardiovascular: S1, S2, No murmur Abdomen/GI:Soft, Non tender, Bowel sounds present Extremities/Musculoskelatal:normal inspection, + Leg edema Neurologic/Psych:AAOX3, grossly no focal neurological deficits Skin: normal color, warm Results & Data Vital Signs (Past 12 Hours) Vital Signs Temp Pulse Resp BP Pulse Ox 01/12/19 15:00 36.4 C L 66 18 149/82 H 96 01/12/19 07:46 36.8 C 60 16 160/84 H 91 Laboratory Results Short CBC 01/12/19 Range/Units 06:16 WBC 5.00 (4.8-10.8) K/uL Hgb 9.6 L (12.0-16.0) g/dL Hct 30.9 L (37-47) % Plt Count 19 L* D (130-400) K/uL BMP 01/12/19 06:16 Sodium 139 Potassium 4.3 Chloride 104 Carbon Dioxide 28 BUN 51 H Creatinine 1.31 H Glucose 62 L Calcium 8.2 L
[2019-01-12] MEDS: LORazepam 1 MG TAB PO PRN (19:46)
[2019-01-12] MEDS ORDERED: INSULIN GLARGINE SOLOSTAR 100 UNITS/ML 3 ML PEN SC SCH (21:00)
[2019-01-12 23:54] VITALS: O2SAT 94
[2019-01-13 07:13] VITALS: BP 134/77; PULSE 65; TEMP 98.4
[2019-01-13 07:17] LABS: Mean Corpuscular Hgb Conc 31.2 g/dL (32-36); Nucleated RBC % (auto) 8.5 %
[2019-01-13 07:20] LABS: BUN Creatinine Ratio 39.1 (10-20); Calcium 8.3 mg/dl (8.5-10.1); Est GFR (African American) 47.9; Est GFR (Non-African American) 41.3; Potassium 4.8 mmol/L (3.5-5.1)
[2019-01-13 07:23] LABS: Hematocrit (blood only) 31.1 % (37-47); Hemoglobin 9.7 g/dL (12.0-16.0); Mean Corpuscular Hemoglobin 25.4 pg (25-34); Mean Corpuscular Volume 81.4 fL (80-100); Platelet Count 24 K/uL (130-400); Platelet Estimate SIGNIFIC DECREASED (Normal); RDW Coefficient of Variation 20.9 % (11.5-14.5); RDW Standard Deviation 57.5 fL (36.4-46.3); Red Blood Count 3.82 M/uL (4.2-5.4); White Blood Count 3.58 K/uL (4.8-10.8)
[2019-01-13] MEDS: DULOXETINE HCL 60 MG CAP PO SCH (08:53)
[2019-01-13] MEDS: METOPROLOL SUCC 25MG EXT REL TAB PO SCH (08:53)
[2019-01-13] MEDS: INSULIN ASPART 100 UNITS/ML 3 ML PEN SC SCH ×2 (08:53→12:29)
[2019-01-13] MEDS: CHOLECALCIFEROL 1,000 UNITS TAB PO SCH (08:54)
[2019-01-13] MEDS: TOPIRAMATE 25 MG TAB PO SCH (08:54)
[2019-01-13] MEDS: FEXOFENADINE HCL 180 MG TAB PO SCH (08:54)
[2019-01-13] MEDS: PANTOprazole 40 MG TAB PO SCH (08:54)
[2019-01-13] MEDS: OXYCODONE HCL 10 MG TABCR (OXYCONTIN) PO SCH (09:00)
[2019-01-13] MEDS ORDERED: APIXABAN 5 MG TABLET PO SCH (11:30)
--- NOTE | 2019-01-13 12:36 | Hospitalist Progress Note ---
Date of Service January 13, 2019 Assessment & Plan (1) Pancytopenia: Antineoplastic chemotherapy induced pancytopenia Monitor CBC Transfuse PRN WBC, RBC count improved Platelet count improved to 24K after IVIG's (2) Metastatic breast cancer: Pancytopenia likely secondary to chemotherapy, ITP H/O metastatic breast cancer On 12/08, patient was started on Faslodex injections every 2 weeks and PO Abemaciclib. Patient did not tolerate Abemaciclib causing GI complaints--discontinued Immature platelet fraction: High Decadron 20 mg daily # 4/ as per oncology Peripheral smear completed by Dr. Light in his office negative for schistocytes, therefore does not seem to be TTP S/P 1 unit platelets transfusion No bleeding issues currently Eliquis for H/O B/L LE DVT--held No improvement of platelet count with steroids Completed IVIGs Day # 2/ as per Oncology monitor renal function--stable Continue to monitor CBC Ok to resume Anticoagulation as per Oncology UTI-POA Urine Cx: Pansensitive E.coli Completed Ceftriaxone Day#5/ Blood cultures: No growth to date (3) Hypoxia: Resolved (4) Obesity hypoventilation syndrome: (5) TYE (obstructive sleep apnea): CXR:Cardiomegaly with no acute cardiopulmonary abnormality. Patient reports exertional shortness of breath recently and states breathing currently feels "quivery"; she attributes most of this to underlying anxiety and panic Hypoxia resolved (6) History of DVT (deep vein thrombosis): Resume Eliquis today (7) Right-sided heart failure: currently euvolemic Is on Torsemide PRN (8) CKD (chronic kidney disease), stage III: Baseline creatinine ~ 1.2-1.3 Creatinine near baseline Monitor renal function Avoid nephrotoxic agents when able (9) DM type 2 (diabetes mellitus, type 2): hgb a1c 7.9 09/2018 Lantus/Novolog per protocol while hospitalized (10) Hypertension: Stable continue metoprolol (11) DVT prophylaxis: Eliquis resumed Code Status Full Code Disposition Plan to discharge home today Subjective Patient is seen and examined at bedside No new complaints Platelet count improved to 24K Discussed with Oncology Dr.Nilesh Light Today--Ok to discharge, can resume anticoagulation Completed immunoglobulins therapy No bleeding issues Denies any chest pain, shortness of breath, dizziness, nausea, abdominal pain Review of Systems Review of Systems: All systems reviewed & are unremarkable except as noted in HPI & below Physical Exam Physical Exam: Physical Exam: Vitals signs as noted above General Appearance:Obese, no apparent distress Head: normocephalic, Atraumatic Eyes: normal inspection, EOMI Neck: supple, Trachea midline Respiratory/Chest: Normal breath sounds, CTA Cardiovascular: S1, S2, No murmur Abdomen/GI:Soft, Non tender, Bowel sounds present Extremities/Musculoskelatal:normal inspection, + Leg edema Neurologic/Psych:AAOX3, grossly no focal neurological deficits Skin: normal color, warm Results & Data Vital Signs (Past 12 Hours) Vital Signs Temp Pulse Resp BP Pulse Ox 01/13/19 07:12 36.9 C 65 16 134/77 94 Laboratory Results Short CBC 01/13/19 Range/Units 06:08 WBC 3.58 L (4.8-10.8) K/uL Hgb 9.7 L (12.0-16.0) g/dL Hct 31.1 L (37-47) % Plt Count 24 L* (130-400) K/uL BMP 01/13/19 06:08 Sodium 139 Potassium 4.8 Chloride 103 Carbon Dioxide 29 BUN 53 H Creatinine 1.36 H Glucose 120 H Calcium 8.3 L
--- NOTE | 2019-01-13 12:48 | Pharmacy Report ---
Pharmacy Glycemic Short Note 2 - Date of Service January 13, 2019 - Glycemic Short BSG Results (Last 24 hours): 01/12/19 01/12/19 01/13/19 16:24 20:49 06:08 Glucose 120 H POC Glucose 112 H 113 H 01/13/19 01/13/19 07:41 11:45 Glucose POC Glucose 112 H 145 H The patient is currently receiving: * Basal insulin: Lantus 10 units qHS * Correctional Insulin: Novolog Correction per scale ACHS Goal Range: Low 100 mg/dL - High 140 mg/dL Correction Factor: 25 mg/dL/unit * Prandial insulin: Per carb ratio of 1 unit per 8 grams CHO consumed - Outpatient Anti-Diabetic Meds * Lantus 24-36 units qhs (based on sliding scale) (B-150: 24 units,151- 200: 30 units, > 200: 36 units) * Novolog 3 units AC + sliding scale insulin for BSG > 150 mg/dL * A1c = 9.2 % (01/07/19) * May be somewhat unreliable due to chronic anemia ASSESSMENT: 01/13 * Maite received 10 units of basal (2nd daily dose of this) and 10 units of bolus insulin yesterday * No changes to causes of insulin resistance * AM fasting improved but may be trending upwards now. Will adjust scale for Lantus to provide additional if BSGs remain above goal. * Postprandial BSGs in range. No adjustments to bolus insulin indicated. 01/12 * See progress note from 01/07 for more background info, in short: * Recently finished course of ceftriaxone for UTI (last dose 01/11/19) * Last dose of dexamethasone 20 mg PO daily on 01/10/19 * Insulin needs significantly reduced since discontinuation of dexamethasone * Patient received a total of 24 units of insulin yesterday * 10 units of basal insulin * 14 units of prandial/correctional insulin * BSGs ranging 62-104 mg/dl over the past 24hrs * Changes needed to insulin regimen: * AM Fasting BSG at goal = 72 mg/dl. Received 10 units of Lantus last evening. * Post-prandial BSGs remain below goal despite loosening Novolog CF/CR to 20/6. Will further loosen. PLAN FOR INPATIENT GLYCEMIC CONTROL: * Basal insulin: Lantus per scale SQ HS * BSG < 110 MG/DL: 5 units * BSG 110 - 140 MG/DL: 10 units * BSG ABOVE 140 MG/DL: 13 units * Bolus insulin - no change * NovoLog per scale ACHS * Goal Range: Low 100 mg/dL - High 140 mg/dL * Continue Correction Factor: 25 mg/dL/unit * Continue Nutritional / Prandial insulin per carb ratio of 1 unit per 8 grams CHO consumed Discharge Recommendations: * If patient will not be discharged on steroids, recommend for patient to cont inue with outpatient regimen * A1c = 9.2% on 01/07/19 is somewhat unreliable d/t anemia. Patient reported to CDE that BSG values on meter are typically in range. Thank you.
--- NOTE | 2019-01-13 12:50 | Discharge Summary ---
Date of Service January 13, 2019 Admission HPI Per Admitting Provider 63 year old female who was sent to the ED by outpatient oncologist for evaluation of thrombocytopenia. Patient has history of metastatic breast cancer. On 12/08, patient was placed on Faslodex injections every 2 weeks and PO Abemaciclib. Unfortunately she did not tolerate the Abemaciclib causing GI complaints. This was discontinued one week ago. Patient had severe nausea, vomiting, and diarrhea. Since stopping the medication, these symptoms have resolved. She presented to Dr. Light's office today with complaints of generalized fatigue and shortness of breath. She reports these symptoms started at the same time she started the new medications. She describes her shortness of breath as a "quivering" sensation. She denies chest pain. She attributes some of her shortness of breath to panic and anxiety. She has chronic lower extremity edema and redness which is unchanged from baseline. She does not weigh herself on a daily basis. She chronically sleeps in a recliner. A few days ago she had one nosebleed. This was self limiting. No lightheadedness, dizziness, diaphoresis, or syncopal events. When she was having the vomiting and diarrhea, she was having some BRBPR however attributes that to hemorrhoids. She denies hematemesis, coffee ground emesis, or dark tarry stools. No fevers or chills. She denies urinary symptoms. At Dr. Light's office today, labs were checked and hgb 8.8 (down from 12.0), platelets 10K (down from 134k), creat 1.4 (mildly elevated from baseline). Patient was then sent to the ED for further evaluation. Repeat labs in the ED show hgb 9.3, platelets 21K, creat 1.4. Patient was also found to be hypoxic on room air at 86%. This improved with 4L via NC. When I entered the room, patient was on room air saturating in the low 90s. Once she began to speak, she occasionally dropped down to the high 80s. Oxygen was reapplied at 2L and patient maintained sats > 92%. CXR is clear. Patient was given neb tx, IV Dilaudid, IV solumedrol, and IV Zofran. Admission Exam Per Admitting Provider Constitutional: WD/WN, vitals as above + obese; no acute distress Eyes: PERRL, conjunctivae normal, anicteric sclerae ENMT: external ear and nose normal, oropharynx normal Respiratory: normal respiratory effort; no respiratory distress Auscultation: + diminished lung sounds Cardiovascular: Rate/Rhythm: regular rate and regular rhythm Vessels: normal peripheral pulses Extremities: + edema (+1-2 pitting edema BLLE (chronic per patient)) Gastrointestinal (Abdomen): normal bowel sounds, soft, nontender, no hepatosplenomegaly Musculoskeletal: no cyanosis or clubbing, extremities motor strength 5/5 Skin: no rashes, warm and dry chronic BLLE erythema noted, no open areas or drainage noted Neurologic: PERRL, EOMI, accommodation nl, no face palsy, no dysarthria Psychiatric: A+Ox3, euthymic affect Principal Diagnosis Pancytopenia Urinary tract infection Metastatic breast cancer Discharge Data Allergies Allergy/AdvReac Type Severity Reaction Status Date / Time gabapentin AdvReac Hallucinati Verified 01/06/19 12:34 ng Consultations 01/06/19 13:29 ED Decision to Admit Stat 01/06/19 16:10 Consult Case Management - Discharge Planning Routine Procedures Performed CXR: Cardiomegaly with no acute cardiopulmonary abnormality. Hospital Course (1) Pancytopenia: Antineoplastic chemotherapy induced pancytopenia Monitor CBC Transfuse PRN WBC, RBC count improved Platelet count improved to 24K after IVIG's (2) Metastatic breast cancer: Pancytopenia likely secondary to chemotherapy, ITP H/O metastatic breast cancer On 12/08, patient was started on Faslodex injections every 2 weeks and PO Abemaciclib. Patient did not tolerate Abemaciclib causing GI complaints--discontinued Immature platelet fraction: High Decadron 20 mg daily # 4/4 as per oncology Peripheral smear completed by Dr. Light in his office negative for schistocytes, therefore does not seem to be TTP S/P 1 unit platelets transfusion No bleeding issues currently Eliquis for H/O B/L LE DVT--held No improvement of platelet count with steroids Completed IVIGs Day # 2/2 as per Oncology monitor renal function--stable Continue to monitor CBC Ok to resume Anticoagulation as per Oncology UTI-POA Urine Cx: Pansensitive E.coli Completed Ceftriaxone Day#5/ Blood cultures: No growth to date (3) Hypoxia: Resolved (4) Obesity hypoventilation syndrome: (5) TYE (obstructive sleep apnea): CXR:Cardiomegaly with no acute cardiopulmonary abnormality. Patient reports exertional shortness of breath recently and states breathing currently feels "quivery"; she attributes most of this to underlying anxiety and panic Hypoxia resolved (6) History of DVT (deep vein thrombosis): Resume Eliquis today (7) Right-sided heart failure: currently euvolemic Is on Torsemide PRN (8) CKD (chronic kidney disease), stage III: Baseline creatinine ~ 1.2-1.3 Creatinine near baseline Monitor renal function Avoid nephrotoxic agents when able (9) DM type 2 (diabetes mellitus, type 2): hgb a1c 7.9 09/2018 Lantus/Novolog per protocol while hospitalized (10) Hypertension: Stable continue metoprolol (11) DVT prophylaxis: Eliquis resumed Code Status Full Code Disposition Plan to discharge home today Total Time Total Time Spent Total Time Spent (In Minutes): 40 minutes Total Time Includes: Examination of the Patient, Discharge Planning, Medication Reconciliation, Communication With Other Providers and Other Discharge Plan Discharge Items Patient Disposition: Home - Self-Care Reason For Visit: PANCYTOPENIA,HYPOXIA Discharge Diagnosis: Pancytopenia Urinary tract infection Metastatic breast cancer Activity: Resume your previous activity Exercise/Sports: Gradually increase as tolerated Non-emergency contact: Primary Care Provider and Oncologist Call non-emergency contact if: you have any medication questions, your symptoms worsen, your pain is not controlled, your pain is worsening, your pain is unusual for you, your pain is concerning for you and you have a fever Follow-up/Referrals: Lucio Larry MD [Primary Care Provider] - Diet: Carb Consistent or DM2 and Heart Healthy Addtl Attending Provider Instructions: Follow-up with your primary care physician Dr. Larry on January 19, 2019 11:45 AM Follow-up with your oncologist Dr. Christophe Light in 1 week with blood test as advised Seek immediate medical attention if your symptoms reoccur or worsen Pending Studies at Discharge: No Stand-Alone Forms: My [employer] Medications and DC Order Prescriptions: Continued fexofenadine [Rocio Allergy] 180 mg Tablet 180 mg PO QAM RF: 0 cholecalciferol (vitamin D3) [Vitamin D3] 2,000 unit Tablet 2,000 unit PO DAILY RF: 0 insulin aspart U-100 100 unit/mL insulin pen subcut AC RF: 0 lorazepam 1 mg Tablet 1 mg PO BID PRN (Reason: Anxiety) RF: 0 ondansetron HCl 8 mg tablet 8 mg PO Q8H PRN (Reason: Nausea) RF: 0 hydromorphone 2 mg tablet 2 mg PO Q6H PRN (Reason: Pain) RF: 0 omeprazole 20 mg capsule,delayed release(DR/EC) 20 mg PO BID RF: 0 tizanidine 4 mg capsule 4 mg PO BID PRN (Reason: Muscle Spasm) RF: 0 oxycodone [OxyContin] 10 mg tablet,oral only,ext.rel.12 hr 10 mg PO Q12H RF: 0 topiramate 25 mg tablet 25 mg PO BID RF: 0 hydroxyzine HCl 25 mg tablet 25 mg PO BID RF: 0 Eliquis 5 mg tablet 5 mg PO BID RF: 0 duloxetine 60 mg capsule,delayed release(DR/EC) 60 mg PO DAILY RF: 0 Xgeva 120 mg/1.7 mL (70 mg/mL) Solution 120 mg SUBCUT MONTHLY RF: 0 torsemide 20 mg tablet 20 mg PO DAILY PRN (Reason: Edema) RF: 0 fulvestrant [Faslodex] 250 mg/5 mL Syringe 250 mg IM Q14D RF: 0 Lantus Solostar U-100 Insulin 100 unit/mL (3 mL) insulin pen See Rx Instructions .ROUTE .COMPLEX Qty: 15 RF: 5 metoprolol succinate 25 mg capsule,sprinkle,ER 24hr 25 mg PO BID Qty: 60 RF: 5 Discharge Orders: Discharge Order (Routine); Ordered 01/13/19 Ordered By: Dylan Sam Admission Data Admit Date/Time: 01/06/19 14:21 Attending Provider: Dylan Sam Admit Provider: Sandi Kat Primary Care Provider: Lucio Larry Other Providers: Sandi Kat Other Interventions: Discharge Summary Assessment (RN) Last Done: 01/13/19 12:53 DC Date/Time DO NOT enter until pt leaves facility: 01/13/19 13:58
== END 2019-01-13 13:58 | disposition home or self-care (01) | DRG 809 ==
LOC: ED 11:07 → SUATTDRO 14:21 → 2W 14:21

== ENCOUNTER 2019-02-05 16:02 | Inpatient (IN) ==
--- NOTE | 2019-02-05 16:38 | XRay Report ---
XR chest 1V portable CLINICAL HISTORY: 63 years-old Female presenting with Dyspnea. TECHNIQUE: Portable upright AP view of the chest was obtained. COMPARISON: 01/06/2019. FINDINGS: Atherosclerosis of the aortic arch. Cardiac silhouette enlarged. Elevated right hemidiaphragm as on p rior. Coarsened lung markings with mildly prominent pulmonary vasculature. Chronic blunting of the ri ght costophrenic angle. No new focal opacity. No pneumothorax. Multiple old rib fractures noted bilat erally. Advanced degenerative changes of the glenohumeral joints. Suspected bilateral chronic rotator cuff tears. Upper abdomen normal. IMPRESSION: 1. Cardiomegaly with mild volume overload. No advanced congestive change or pulmonary edema. 2. Chronically low lung volume on the right with elevated right hemidiaphragm. 3. Possible trace right pleural effusion or chronic change. This is similar to prior exam. 4. Chronic bilateral rib fractures. Electronically signed by: Adithya Simeon M.D. 02/05/2019 4:36 PM
[2019-02-05 17:40] LABS: INR 1.1 (0.9-1.1); Partial Thromboplastin Ratio 0.9; Partial Thromboplastin Time 23.6 Seconds (21.0-31.0)
[2019-02-05 17:47] LABS: Alanine Aminotransferase 11 U/L (12-78); Albumin Level 2.6 gm/dl (3.4-5.0); Aspartate Aminotransferase 30 U/L (15-37); BUN Creatinine Ratio 24.1 (10-20); Blood Urea Nitrogen 32 mg/dl (7-18); Calcium 8.6 mg/dl (8.5-10.1); Carbon Dioxide 29 mmol/L (21-32); Chloride 109 mmol/L (98-107); Est GFR (African American) 49.6; Est GFR (Non-African American) 42.8; Glucose 125 mg/dl (70-99); Magnesium 1.9 mg/dl (1.8-2.4); Sodium 141 mmol/L (136-145)
[2019-02-05 17:56] LABS: Albumin Globulin Ratio 0.5 (0.9-2); Alkaline Phosphatase 118 U/L (45-117); Bilirubin,Total 0.5 mg/dl (0.2-1); Hematocrit (blood only) 27.6 % (37-47); Hemoglobin 7.8 g/dL (12.0-16.0); Mean Corpuscular Hemoglobin 25.3 pg (25-34); Mean Corpuscular Hgb Conc 28.3 g/dL (32-36); Mean Corpuscular Volume 89.6 fL (80-100); NT Pro B Type Natriuretic Pept 4339 pg/ml (0-900); Nucleated RBC # (auto) 1.01 K/uL (0-0); Nucleated RBC % (auto) 17.5 %; Platelet Count 25 K/uL (130-400); RDW Coefficient of Variation 24.5 % (11.5-14.5); RDW Standard Deviation 77.7 fL (36.4-46.3); Red Blood Count 3.08 M/uL (4.2-5.4); Total Protein 7.6 gm/dl (6.4-8.2); Troponin I 0.016 ng/ml (0-0.045); White Blood Count 5.79 K/uL (4.8-10.8)
[2019-02-05 17:57] LABS: Anisocytosis Present; Basophilic Stippling 1+; Basophils % (auto) 3.5 %; Eosinophils # (auto) 0.19 K/uL (0-0.5); Eosinophils % (auto) 3.3 %; Hypochromasia Present; Immature Granulocytes # (auto) 0.15 K/uL (0.00-0.02); Immature Granulocytes % (auto) 2.6 %; Lymphocytes # (auto) 0.58 K/uL (1.2-3.4); Monocytes % (auto) 6.9 %; Neutrophils # (auto) 4.27 K/uL (1.4-6.5); Neutrophils % (auto) 73.7 %; Platelet Estimate SIGNIFIC DECREASED (Normal); Polychromasia 1+
[2019-02-05] MEDS ORDERED: FUROSEMIDE 60 MG in SYRINGE 0 ML IV ONE (19:27)
[2019-02-05 19:56] LABS: Base Excess ABG 0.3 mEq/L (-9-1.8); HCO3 ABG 28 mmol/L (19-24); Oxygen Saturation ABG 89.9 % (90-95); PCO2 ABG 67 mmHg (35-46); PO2 ABG 77 mm/Hg (80-95); pH ABG 7.24 (7.35-7.45)
[2019-02-05 19:58] LABS: Allen Test POS (Pos)
[2019-02-05] MEDS ORDERED: ALBUT/IPRATROP 3MG/0.5MG NEB 3 ML VIAL NEB STA (20:03)
--- NOTE | 2019-02-05 20:03 | History & Physical Report ---
Date of Service February 05, 2019 Assessment & Plan (1) Encephalopathy: Encephalopathy at home Patient currently mentating better at the ER as per . Multifactorial : Hypoxemic, hypercapnic respiratory failure secondary to probable OHS (patient still has to go for a sleep study) and pulmonary congestion, hx chronic right- sided heart failure Complicated UTI possible sepsis Hyperammonemia ? Undiagnosed NAFLD cirrhosis Home narcotics, antihistaminics contributory hypertension, stable DM 2 insulin requiring, suboptimal control as of recent hemoglobin A1c of 9.2 last December 2018 metastatic right breast cancer ongoing chemotherapy, some progression on recent outpatient PET scans chronic ITP as per records Acute on chronic anemia, patient denies overt bleed history DVT on Eliquis rheumatoid arthritis as per records PCU BIPAP (patient willing to try) Diuretic Rx Strict I/Os, daily weights, CHF education Cardio consult RE right-sided heart failure Pulmonary consult RE hypercapnic respiratory failure, prob OHS Outpatient sleep study Follow urine cultures, IV Ceftriaxone Transfuse PRBC if hemoglobin less than 7 and/or patient still short of breath post Lasix administration Lactulose, liver ultrasound, GI consult for hyperammonemia Hold [id number] narcotics, antihistaminics, neuropsychotropic meds for sedation confusion basal insulin, ISS BG goal 142 and 18 PT OT eval DVT prophylaxis. Eliquis Full code Total critical care time was 45 minutes. History of Present Illness Chief Complaint: Confusion, shortness of breath Primary Care Provider: Lucio Larry MD History obtained from patient, family, and records. Medical history significant for chronic right-sided heart failure, nocturnal hypoxemia as per records (prob OHS, BIPAP intolerance as per records), hypertension, hyperlipidemia, DM 2 insulin requiring, metastatic right breast cancer ongoing chemotherapy, chronic ITP as per records, history DVT on Eliquis, chronic anemia (baseline hemoglobin 8-9), rheumatoid arthritis as per records, chronic pain on narcotics. Recent confinement last month for pancytopenia, E. coli UTI. This morning patient noted by to be confused. Using the TV remote control as a telephone as per . Patient noted to be disoriented. Patient complaining of shortness of breath, fluid retention. Denies headache. No chest pain. Patient with dry cough, chills. Denies abdominal pain. No dysuria symptoms. At the ER, O2 sats noted to be 80s on room air. Patient mentation currently improved as per . 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 Allergies Allergy/AdvReac Type Severity Reaction Status Date / Time gabapentin AdvReac Hallucinati Verified 02/05/19 17:00 ng Home Medications Home Medications Medication Instructions Recorded Confirmed Type cholecalciferol (vitamin D3) 2,000 unit PO QAM 03/05/18 02/05/19 History [Vitamin D3] fexofenadine [Rocio Allergy] 180 mg PO QAM 03/05/18 02/05/19 History insulin aspart U-100 0 units SUBCUT AC 03/05/18 02/05/19 History lorazepam 1 mg PO BID PRN 03/05/18 02/05/19 History Lantus Solostar U-100 Insulin See Rx Instructions .ROUTE 05/16/18 02/05/19 Rx .COMPLEX #15 ml metoprolol succinate 25 mg PO BID #60 ea 05/16/18 02/05/19 Rx Eliquis 5 mg PO BID 01/06/19 02/05/19 History Xgeva 120 mg SUBCUT MONTHLY 01/06/19 02/05/19 History duloxetine 60 mg PO QAM 01/06/19 02/05/19 History fulvestrant [Faslodex] 250 mg IM Q14D 01/06/19 02/05/19 History hydromorphone 2 mg PO Q6H PRN 01/06/19 02/05/19 History hydroxyzine HCl 25 mg PO BID 01/06/19 02/05/19 History omeprazole 20 mg PO BID 01/06/19 02/05/19 History ondansetron HCl 8 mg PO Q8H PRN 01/06/19 02/05/19 History oxycodone [OxyContin] 10 mg PO Q12H 01/06/19 02/05/19 History tizanidine 4 mg PO BID PRN 01/06/19 02/05/19 History topiramate 25 mg PO BID 01/06/19 02/05/19 History torsemide 20 mg PO DAILY PRN 01/06/19 02/05/19 History Past Med/Surg History Medical History TYE (obstructive sleep apnea) (Chronic) Obesity hypoventilation syndrome (Chronic) History of DVT (deep vein thrombosis) (Chronic) Right-sided heart failure (Chronic) Thrombocytopenia (Chronic) Metastatic breast cancer (Chronic) CKD (chronic kidney disease), stage III (Chronic) ATN (acute tubular necrosis) (Resolved) DM type 2 (diabetes mellitus, type 2) (Chronic) Hyperlipidemia (Chronic) Irritable bowel syndrome (Chronic) Rheumatoid arthritis (Chronic) Osteoarthritis (Chronic) Hypertension (Chronic) Breast cancer metastasized to bone (Inactive) Chronic kidney disease (Inactive) Rheumatoid arthritis (Inactive) Surgical History History of hernia repair (Chronic) Family History Mother Stroke Social History Preferred Language: [place] Communication Ability: Effective Visual Impairment: No Limitations Control Valve Technician Required: No Beliefs That Will Affect Care: None marital status: Current Living Situation: Spouse Other Information That Helps Us Care for You: No Feels Safe at Home: Yes Safety Concerns: Feels Safe At This Time Smoking Status: Never smoker Second Hand Exposure: No ; Hx Alcohol Use: No Hx Substance Use: No Review of Systems Review of Systems: As per HPI, all 10 systems reviewed, all other ROS negative Physical Exam Physical Exam: GENERAL: uncomfortable, min respiratory distress, episodic abdominal breathing, obese, sitting on a wheelchair SKIN: Pallor, warm, ecchymosis right forearm HEENT: Pale palpebral conjunctivae, no ptosis, dry buccal mucosa, nasal cannula in place NECK : Supple, short neck, no tenderness CHEST : Decreased breath sounds, bibasilar crackles, no tenderness HEART : RRR, no obvious murmurs ABDOMEN: Marked distention, nontender EXTREMITIES : Bilateral LE swelling, minimal LE tenderness, no other conspicuous deformities noted NEUROLOGIC : Coherent, no facial asymmetry, no other gross focality Results & Data Vital Signs (Past 12 Hours) Vital Signs Temp Pulse Pulse Resp BP BP Pulse Ox 02/05/19 20:00 79 18 101/79 94 02/05/19 18:30 77 19 122/59 L 93 02/05/19 18:00 74 20 122/68 95 02/05/19 17:30 73 33 H 123/70 98 02/05/19 17:17 86 25 H 128/55 L 98 02/05/19 17:05 99 H 26 H 97 02/05/19 16:07 36.8 C 99 H 26 H 133/55 L 84 L Laboratory Results Laboratory Results WBC 5.79 K/uL (4.8-10.8) 02/05/19 17:15 RBC 3.08 M/uL (4.2-5.4) L 02/05/19 17:15 Hgb 7.8 g/dL (12.0-16.0) L 02/05/19 17:15 Hct 27.6 % (37-47) L 02/05/19 17:15 MCV 89.6 fL (80-100) 02/05/19 17:15 MCH 25.3 pg (25-34) 02/05/19 17:15 MCHC 28.3 g/dL (32-36) L 02/05/19 17:15 RDW Std Deviation 77.7 fL (36.4-46.3) H 02/05/19 17:15 RDW Coeff of [place]i 24.5 % (11.5-14.5) H 02/05/19 17:15 Plt Count 25 K/uL (130-400) L* 02/05/19 17:15 Immature Gran % (Auto) 2.6 % 02/05/19 17:15 Neut % (Auto) 73.7 % 02/05/19 17:15 Lymph % (Auto) 10.0 % 02/05/19 17:15 [place] % (Auto) 6.9 % 02/05/19 17:15 Eos % (Auto) 3.3 % 02/05/19 17:15 Baso % (Auto) 3.5 % 02/05/19 17:15 Immature Gran # (Auto) 0.15 K/uL (0.00-0.02) H 02/05/19 17:15 Neut # (Auto) 4.27 K/uL (1.4-6.5) 02/05/19 17:15 Lymph # (Auto) 0.58 K/uL (1.2-3.4) L 02/05/19 17:15 [place] # (Auto) 0.40 K/uL (0.11-0.59) 02/05/19 17:15 Eos # (Auto) 0.19 K/uL (0-0.5) 02/05/19 17:15 Baso # (Auto) 0.20 K/uL (0-0.2) 02/05/19 17:15 Absolute Nucleated RBC 1.01 K/uL (0-0) H 02/05/19 17:15 Nucleated RBC % (auto) 17.5 % 02/05/19 17:15 Platelet Estimate SIGNIFIC DECREASED (Normal) 02/05/19 17:15 Polychromasia 1+ 02/05/19 17:15 Hypochromasia Present 02/05/19 17:15 Basophilic Stippling 1+ 02/05/19 17:15 Anisocytosis Present 02/05/19 17:15 PT 11.0 Seconds (9.0-12.0) 02/05/19 17:15 INR 1.1 (0.9-1.1) 02/05/19 17:15 APTT 23.6 Seconds (21.0-31.0) 02/05/19 17:15 PTT Ratio 0.9 02/05/19 17:15 ABG pH 7.24 (7.35-7.45) L 02/05/19 19:37 ABG pCO2 67 mmHg (35-46) H 02/05/19 19:37 ABG pO2 77 mm/Hg (80-95) L 02/05/19 19:37 ABG HCO3 28 mmol/L (19-24) H 02/05/19 19:37 ABG O2 Saturation 89.9 % (90-95) L 02/05/19 19:37 ABG Base Excess 0.3 mEq/L (-9-1.8) 02/05/19 19:37 Robert Test POS (Pos) 02/05/19 19:37 Barometric Pressure 737.7 mm/Hg 02/05/19 19:37 Oxygen Given 4L O2 02/05/19 19:37 Sodium 141 mmol/L (136-145) 02/05/19 17:15 Potassium 5.0 mmol/L (3.5-5.1) 02/05/19 17:15 Chloride 109 mmol/L (98-107) H 02/05/19 17:15 Carbon Dioxide 29 mmol/L (21-32) 02/05/19 17:15 Anion Gap 3.0 (3-11) 02/05/19 17:15 BUN 32 mg/dl (7-18) H 02/05/19 17:15 Creatinine 1.32 mg/dl (0.6-1.2) H 02/05/19 17:15 Est Cr Clr Drug Dosing Not Reportable 02/05/19 17:15 Est GFR ( Amer) 49.6 02/05/19 17:15 Est GFR (Non-Af Amer) 42.8 02/05/19 17:15 BUN/Creatinine Ratio 24.1 (10-20) H 02/05/19 17:15 Glucose 125 mg/dl (70-99) H 02/05/19 17:15 Calcium 8.6 mg/dl (8.5-10.1) 02/05/19 17:15 Magnesium 1.9 mg/dl (1.8-2.4) 02/05/19 17:15 Total Bilirubin 0.5 mg/dl (0.2-1) 02/05/19 17:15 AST 30 U/L (15-37) 02/05/19 17:15 ALT 11 U/L (12-78) L 02/05/19 17:15 Alkaline Phosphatase 118 U/L (45-117) H 02/05/19 17:15 Troponin I 0.016 ng/ml (0-0.045) 02/05/19 17:15 NT-Pro-B Natriuret Pep 4339 pg/ml (0-900) H 02/05/19 17:15 Total Protein 7.6 gm/dl (6.4-8.2) 02/05/19 17:15 Albumin 2.6 gm/dl (3.4-5.0) L 02/05/19 17:15 Globulin 5.0 gm/dl (2.5-4.0) H 02/05/19 17:15 Albumin/Globulin Ratio 0.5 (0.9-2) L 02/05/19 17:15 Specimen Hemolysis 02/05/19 17:15 Diagnostic Findings Chest x-ray : 1. Cardiomegaly with mild volume overload. No advanced congestive change or pulmonary edema. 2. Chronically low lung volume on the right with elevated right hemidiaphragm. 3. Possible trace right pleural effusion or chronic change. This is similar to prior exam. 4. Chronic bilateral rib fractures. EKG as per my interpretation : Rate 90, NSR, normal axis, RBBB, T wave inversion inferior leads
[2019-02-05] MEDS ORDERED: FUROSEMIDE 40 MG/4 ML VIAL IV ONE (20:30)
[2019-02-05] MEDS ORDERED: GLUCAGON FOR INJ 1 MG VIAL SQ PRN (20:57)
[2019-02-05] MEDS ORDERED: GLUCOSE 40% GEL 15 GM TUBE PO PRN (20:57)
[2019-02-05] MEDS ORDERED: PROMETHAZINE HCL 12.5 MG in SODIUM CHLORIDE 0.9% 50 ML IV PRN (20:57)
[2019-02-05] MEDS ORDERED: HYDROmorphone HCL 2 MG TAB PO PRN (20:57)
[2019-02-05] MEDS ORDERED: CARBOHYDRATES FOR HYPOGLYCEMIA PO PRN (20:57)
[2019-02-05] MEDS ORDERED: NITROGLYCERIN SL 0.4 MG/TAB TAB SL PRN (20:57)
[2019-02-05] MEDS ORDERED: DEXTROSE 50% 50 ML SYRINGE IV PRN (20:57)
[2019-02-05] MEDS ORDERED: ACETAMINOPHEN 325 MG TAB PO PRN (20:57)
[2019-02-05] MEDS ORDERED: GLUCOSE 10 TABS/TUBE PO PRN (20:57)
[2019-02-05 21:48] LABS: Influenza A virus by PCR Neg for Influ A (Neg); Influenza B virus by PCR Neg for Influ B (Neg)
[2019-02-05 22:12] LABS: Appearance Urine Cloudy (Clear); Bacteria Urine Automated 4+ (Negative); Bilirubin Urine Negative (Negative); Blood Urine Trace (Negative); Color Urine Yellow; Glucose Urine UA Negative (Negative); Ketones Urine Negative (Negative); Leukocyte Esterase Urine 1+ (Negative); Nitrite Urine Negative (Negative); Protein Urine 1+ (Negative); RBC Urine Automated 0-4 /hpf (0-4); Specific Gravity Urine 1.017 (1.000-1.030); Urobilinogen Urine Negative (Negative); WBC Urine Automated >30 /hpf (0-5)
[2019-02-05] MEDS: TOPIRAMATE 25 MG TAB PO SCH (22:13)
[2019-02-05] MEDS: OXYCODONE HCL 10 MG TABCR (OXYCONTIN) PO SCH (22:13)
[2019-02-05] MEDS: guaiFENesin 600 MG TABCR PO SCH (22:14)
[2019-02-05] MEDS: APIXABAN 5 MG TABLET PO SCH (22:14)
[2019-02-05] MEDS: METOPROLOL SUCC 25MG EXT REL TAB PO SCH (22:14)
[2019-02-05] MEDS: PANTOprazole 40 MG TAB PO SCH (22:15)
--- NOTE | 2019-02-05 22:16 | Ultrasound Report ---
US abdomen ltd ascites CLINICAL HISTORY: Abdominal distention. Evaluate for ascites. COMPARISON STUDY: PET/CT May 21, 2018. FINDINGS: No ascites was identified within the abdomen or pelvis. Evaluation was suboptimal due to di fficulty positioning. IMPRESSION: Technically difficult exam but no ascites identified within the abdomen or pelvis. Electronically signed by: Raul Rivera M.D. 02/05/2019 10:15 PM
[2019-02-05] MEDS: INSULIN ASPART 100 UNITS/ML 3 ML PEN SC SCH (22:23)
[2019-02-05] MEDS ORDERED: LACTULOSE SYRUP 30 GM/45 ML UDP PO ONE (22:30)
--- NOTE | 2019-02-05 22:30 | Emergency Department Note ---
Entered by Latoya Craft acting as a scribe for History of Present Illness General Chief complaint: Confusion Stated complaint: CONFUSED Source: patient and family History of Present Illness Onset (ago): hour(s) 8 Location: head (Confusion) Pain Consistency: + intermittent Maximum Pain Intensity: 8 Quality: + other (Confusion) Relieved By: not by rest Exacerbated By: + other ( low platelet count ) Associated symptoms: + confusion, + shortness of breath and + other (Positive edema to lower extremities. Negative slurred speech.); no cough and no weakness Treatments prior to arrival: other (oxygen 2L nasal cannula) The patient is a 63 year old female presenting to the Emergency Department complaining of intermittent confusion starting 8 hours ago. The patients reports that the patient woke up this morning and was very confused. He states that the patient did not know she was confused and was using the television remote as a phone. He explains that the patient took a nap which didnt help as she woke up still confused. He notes that the patients confusion occurred while her platelet count was low. He adds that the patient has stage 4 breast cancer. The patient reports that she was confused earlier today. She states that she has been short of breath. She explains that she normally uses 2L supplemental oxygen via nasal cannula at night but that she has been using it during the day. She notes that her legs are more swelled than normal. She adds that she regularly takes Eliquis. The patient reports that she was diagnosed with breast cancer 1.5 years ago. She states that she has not received any chemotherapy treatments because her platelet counts have been consistently low. She notes that she has been experiencing these symptoms for about 1 year which has been preventing her from beginning chemotherapy. She adds that she follows with Dr. Kuldeep Otero Oncologist. The patients denies that the patient was slurring her speech. The patient denies extremity weakness, cough and rhinorrhea. Home Medications Home Medications Medication Instructions Recorded Confirmed Type cholecalciferol (vitamin D3) 2,000 unit PO QAM 03/05/18 02/05/19 History [Vitamin D3] fexofenadine [Rocio Allergy] 180 mg PO QAM 03/05/18 02/05/19 History insulin aspart U-100 0 units SUBCUT AC 03/05/18 02/05/19 History lorazepam 1 mg PO BID PRN 03/05/18 02/05/19 History Lantus Solostar U-100 Insulin See Rx Instructions .ROUTE 05/16/18 02/05/19 Rx .COMPLEX #15 ml metoprolol succinate 25 mg PO BID #60 ea 05/16/18 02/05/19 Rx Eliquis 5 mg PO BID 01/06/19 02/05/19 History Xgeva 120 mg SUBCUT MONTHLY 01/06/19 02/05/19 History duloxetine 60 mg PO QAM 01/06/19 02/05/19 History fulvestrant [Faslodex] 250 mg IM Q14D 01/06/19 02/05/19 History hydromorphone 2 mg PO Q6H PRN 01/06/19 02/05/19 History hydroxyzine HCl 25 mg PO BID 01/06/19 02/05/19 History omeprazole 20 mg PO BID 01/06/19 02/05/19 History ondansetron HCl 8 mg PO Q8H PRN 01/06/19 02/05/19 History oxycodone [OxyContin] 10 mg PO Q12H 01/06/19 02/05/19 History tizanidine 4 mg PO BID PRN 01/06/19 02/05/19 History topiramate 25 mg PO BID 01/06/19 02/05/19 History torsemide 20 mg PO DAILY PRN 01/06/19 02/05/19 History Allergies Allergy/AdvReac Type Severity Reaction Status Date / Time gabapentin AdvReac Hallucinati Verified 02/05/19 17:00 ng Past Med/Surg History Medical History TYE (obstructive sleep apnea) (Chronic) Obesity hypoventilation syndrome (Chronic) History of DVT (deep vein thrombosis) (Chronic) Right-sided heart failure (Chronic) Thrombocytopenia (Chronic) Metastatic breast cancer (Chronic) CKD (chronic kidney disease), stage III (Chronic) ATN (acute tubular necrosis) (Resolved) DM type 2 (diabetes mellitus, type 2) (Chronic) Hyperlipidemia (Chronic) Irritable bowel syndrome (Chronic) Rheumatoid arthritis (Chronic) Osteoarthritis (Chronic) Hypertension (Chronic) Breast cancer metastasized to bone (Inactive) Chronic kidney disease (Inactive) Rheumatoid arthritis (Inactive) Surgical History History of hernia repair (Chronic) Family History Mother Stroke Social History Preferred Language: Mauritian Communication Ability: Effective Visual Impairment: No Limitations Campus Monitor Required: No Beliefs That Will Affect Care: None marital status: Current Living Situation: Spouse Other Information That Helps Us Care for You: No Feels Safe at Home: Yes Safety Concerns: Feels Safe At This Time Smoking Status: Never smoker Second Hand Exposure: No ; Hx Alcohol Use: No Hx Substance Use: No Review of Systems See HPI for pertinent positives & negatives. and A total of 10 systems reviewed and were otherwise negative Physical Exam Vital Signs Vital Signs - 24 hr 02/05/19 16:07 02/05/19 17:05 02/05/19 17:17 Temperature 36.8 C Temperature Source Oral Sepsis Recent Fever Within 48 Hours No Sepsis New/Unexplained Change in Mental Status No Sepsis Action Taken by Nursing No Action Required Pulse Rate 99 H 99 H 86 Pulse Rate [Apical] Pulse Rate from SpO2 Sensor 86 Pulse Rhythm Regular Respiratory Rate 26 H 26 H 25 H Respiratory Effort / Characteristics Non-Labored Spontaneous Blood Pressure 133/55 L 128/55 L Blood Pressure [Left Arm] Blood Pressure Mean 81 79 Blood Pressure Mean [Left Arm] Blood Pressure Position Sitting Pulse Oximetry 84 L 97 98 Oxygen Delivery Method Room Air Nasal Cannula Nasal Cannula Oxygen Flow Rate 4 02/05/19 17:30 02/05/19 18:00 02/05/19 18:30 Temperature Temperature Source Sepsis Recent Fever Within 48 Hours Sepsis New/Unexplained Change in Mental Status Sepsis Action Taken by Nursing Pulse Rate 73 74 77 Pulse Rate [Apical] Pulse Rate from SpO2 Sensor 74 74 75 Pulse Rhythm Respiratory Rate 33 H 20 19 Respiratory Effort / Characteristics Blood Pressure 123/70 122/68 122/59 L Blood Pressure [Left Arm] Blood Pressure Mean 87 86 80 Blood Pressure Mean [Left Arm] Blood Pressure Position Pulse Oximetry 98 95 93 Oxygen Delivery Method Nasal Cannula Nasal Cannula Nasal Cannula Oxygen Flow Rate 02/05/19 20:00 Temperature Temperature Source Sepsis Recent Fever Within 48 Hours Sepsis New/Unexplained Change in Mental Status Sepsis Action Taken by Nursing Pulse Rate Pulse Rate [Apical] 79 Pulse Rate from SpO2 Sensor Pulse Rhythm Respiratory Rate 18 Respiratory Effort / Characteristics Blood Pressure Blood Pressure [Left Arm] 101/79 Blood Pressure Mean Blood Pressure Mean [Left Arm] 86 Blood Pressure Position Pulse Oximetry 94 Oxygen Delivery Method Nasal Cannula Oxygen Flow Rate 3 GENERAL: Morbidly obese, sitting up in chair. Dyspnic at conversation. Currently on 4L supplemental oxygen. Alert, no distress, non-toxic. EYE EXAM: normal conjunctiva. OROPHARYNX: no exudate, no erythema, lips, buccal mucosa, and tongue normal and mucous membranes are moist NECK: supple, no nuchal rigidity, no adenopathy, non-tender LUNGS: Poor air movement, diminished bilaterally. Distant sounds. Clear to auscultation. Normal chest wall mechanics HEART: no murmurs, S1 normal and S2 normal ABDOMEN: abdomen soft, non-tender, normo-active bowel sounds, no masses, no rebound or guarding. BACK: Back is symmetrical on inspection and there is no deformity, no midline tenderness, no CVA tenderness. SKIN: no rashes and no bruising UPPER EXTREMITIES: upper extremities are grossly normal. LOWER EXTREMITIES: Pitting edema bilaterally, left leg larger than right. NEURO EXAM: Normal sensorium, cranial nerves II-XII grossly intact, normal speech, no gross weakness of arms, no gross weakness of legs. Course ED COURSE: Vital signs were reviewed and showed hypoxia, hypotension. The patients medical record was reviewed The above diagnostic studies were performed and reviewed. ED treatments and interventions as stated above. 1618: The patient was evaluated in room C5. A complete history and physical examination was performed. 1857: I reevaluated the patient at this time. I updated her. 1901: I discussed the patients case with Dr. Nereida JOHN hospitalist. She will evaluated the patient for further management. 1909: Upon reevaluation, I discussed my findings with the patient and her who both understand and agrees with the treatment plan. Based on the patients age, coexisting illnesses, exam and lab findings the decision to treat as an inpatient was made. The patient remained stable while under my care. The patient will be evaluated for further management. Administered Medications Apixaban (Eliquis) 5 mg PO BID [facility] Stop: 03/07/19 21:44 Last Admin: 02/05/19 22:14 Dose: 5 mg Documented by: [id number] Guaifenesin (Mucinex) 600 mg PO Q12 [facility] Stop: 03/07/19 21:44 Last Admin: 02/05/19 22:14 Dose: 600 mg Documented by: [id number] Hydroxyzine HCl (Vistaril) 25 mg PO BID [facility] Stop: 03/07/19 20:59 Last Admin: 02/05/19 22:14 Dose: 25 mg Documented by: [id number] Insulin Aspart (Novolog Flexpen) 0 units SC ACHS [facility] Stop: 03/07/19 20:59 Last Admin: 02/05/19 22:23 Dose: Not Given Documented by: [id number] Cosigned by: [id number] Metoprolol Succinate (Toprol Xl) 25 mg PO BID [facility] Stop: 03/07/19 21:44 Last Admin: 02/05/19 22:14 Dose: 25 mg Documented by: [id number] Oxycodone HCl (Oxycontin) 10 mg PO Q12 [facility] Stop: 02/19/19 21:29 Last Admin: 02/05/19 22:13 Dose: 10 mg Documented by: [id number] Pantoprazole Sodium (Protonix) 40 mg PO BID [facility]; Protocol Stop: 03/07/19 21:44 Last Admin: 02/05/19 22:15 Dose: Not Given Documented by: [id number] Topiramate (Topamax) 25 mg PO BID [facility] Stop: 03/07/19 21:44 Last Admin: 02/05/19 22:13 Dose: 25 mg Documented by: [id number] Discontinued Medications Albuterol (Duoneb) 3 ml NEB NOW STA Stop: 02/05/19 20:04 Last Admin: 02/05/19 20:24 Dose: 3 ml Documented by: [id number] Furosemide (Lasix) 60 mg IV ONE ONE Stop: 02/05/19 20:31 Last Admin: 02/05/19 21:38 Dose: 60 mg Documented by: [id number] Medical Decision Making Differential Diagnosis Differential diagnoses includes but is not limited to pneumonia, bronchitis, COPD/Asthma exacerbation, pneumothorax, pulmonary embolism, congestive heart failure, acute coronary syndrome Medical Records Attestation: I reviewed the patient's medical records. Home Medications Current Medication List: was personally reviewed by me Laboratory Data Attestation: I reviewed the patient's lab results. Result diagrams: 02/05/19 17:15 02/05/19 17:15 Lab Results 02/05/19 02/05/19 02/05/19 Range/Units 17:15 17:15 17:15 WBC 5.79 (4.8-10.8) K/uL RBC 3.08 L (4.2-5.4) M/uL Hgb 7.8 L (12.0-16.0) g/dL Hct 27.6 L (37-47) % MCV 89.6 (80-100) fL MCH 25.3 (25-34) pg MCHC 28.3 L (32-36) g/dL RDW Std Deviation 77.7 H (36.4-46.3) fL RDW Coeff of Flori 24.5 H (11.5-14.5) % Plt Count 25 L* (130-400) K/uL Immature Gran % (Auto) 2.6 % Neut % (Auto) 73.7 % Lymph % (Auto) 10.0 % [place] % (Auto) 6.9 % Eos % (Auto) 3.3 % Baso % (Auto) 3.5 % Immature Gran # (Auto) 0.15 H (0.00-0.02) K/uL Neut # (Auto) 4.27 (1.4-6.5) K/uL Lymph # (Auto) 0.58 L (1.2-3.4) K/uL [place] # (Auto) 0.40 (0.11-0.59) K/uL Eos # (Auto) 0.19 (0-0.5) K/uL Baso # (Auto) 0.20 (0-0.2) K/uL Absolute Nucleated RBC 1.01 H (0-0) K/uL Nucleated RBC % (auto) 17.5 % Platelet Estimate SIGNIFIC DECREASED (Normal) Polychromasia 1+ Hypochromasia Present Basophilic Stippling 1+ Anisocytosis Present PT 11.0 (9.0-12.0) Seconds INR 1.1 (0.9-1.1) APTT 23.6 (21.0-31.0) Seconds PTT Ratio 0.9 ABG pH (7.35-7.45) ABG pCO2 (35-46) mmHg ABG pO2 (80-95) mm/Hg ABG HCO3 (19-24) mmol/L ABG O2 Saturation (90-95) % ABG Base Excess (-9-1.8) mEq/L Robert Test (Pos) Barometric Pressure mm/Hg Oxygen Given Sodium 141 (136-145) mmol/L Potassium 5.0 (3.5-5.1) mmol/L Chloride 109 H (98-107) mmol/L Carbon Dioxide 29 (21-32) mmol/L Anion Gap 3.0 (3-11) BUN 32 H (7-18) mg/dl Creatinine 1.32 H (0.6-1.2) mg/dl Est Cr Clr Drug Dosing Not Reportable Est GFR ( Amer) 49.6 Est GFR (Non-Af Amer) 42.8 BUN/Creatinine Ratio 24.1 H (10-20) Glucose 125 H (70-99) mg/dl Calcium 8.6 (8.5-10.1) mg/dl Magnesium 1.9 (1.8-2.4) mg/dl Total Bilirubin 0.5 (0.2-1) mg/dl AST 30 (15-37) U/L ALT 11 L (12-78) U/L Alkaline Phosphatase 118 H (45-117) U/L Ammonia (11-32) umol/L Troponin I 0.016 (0-0.045) ng/ml NT-Pro-B Natriuret Pep 4339 H (0-900) pg/ml Total Protein 7.6 (6.4-8.2) gm/dl Albumin 2.6 L (3.4-5.0) gm/dl Globulin 5.0 H (2.5-4.0) gm/dl Albumin/Globulin Ratio 0.5 L (0.9-2) Specimen Hemolysis Blood Type Antibody Screen 02/05/19 02/05/19 02/05/19 Range/Units 19:37 19:37 19:37 WBC (4.8-10.8) K/uL RBC (4.2-5.4) M/uL Hgb (12.0-16.0) g/dL Hct (37-47) % MCV (80-100) fL MCH (25-34) pg MCHC (32-36) g/dL RDW Std Deviation (36.4-46.3) fL RDW Coeff of Flori (11.5-14.5) % Plt Count (130-400) K/uL Immature Gran % (Auto) % Neut % (Auto) % Lymph % (Auto) % [place] % (Auto) % Eos % (Auto) % Baso % (Auto) % Immature Gran # (Auto) (0.00-0.02) K/uL Neut # (Auto) (1.4-6.5) K/uL Lymph # (Auto) (1.2-3.4) K/uL [place] # (Auto) (0.11-0.59) K/uL Eos # (Auto) (0-0.5) K/uL Baso # (Auto) (0-0.2) K/uL Absolute Nucleated RBC (0-0) K/uL Nucleated RBC % (auto) % Platelet Estimate (Normal) Polychromasia Hypochromasia Basophilic Stippling Anisocytosis PT (9.0-12.0) Seconds INR (0.9-1.1) APTT (21.0-31.0) Seconds PTT Ratio ABG pH 7.24 L (7.35-7.45) ABG pCO2 67 H (35-46) mmHg ABG pO2 77 L (80-95) mm/Hg ABG HCO3 28 H (19-24) mmol/L ABG O2 Saturation 89.9 L (90-95) % ABG Base Excess 0.3 (-9-1.8) mEq/L Robert Test POS (Pos) Barometric Pressure 737.7 mm/Hg Oxygen Given 4L O2 Sodium (136-145) mmol/L Potassium (3.5-5.1) mmol/L Chloride (98-107) mmol/L Carbon Dioxide (21-32) mmol/L Anion Gap (3-11) BUN (7-18) mg/dl Creatinine (0.6-1.2) mg/dl Est Cr Clr Drug Dosing Est GFR ( Amer) Est GFR (Non-Af Amer) BUN/Creatinine Ratio (10-20) Glucose (70-99) mg/dl Calcium (8.5-10.1) mg/dl Magnesium (1.8-2.4) mg/dl Total Bilirubin (0.2-1) mg/dl AST (15-37) U/L ALT (12-78) U/L Alkaline Phosphatase (45-117) U/L Ammonia 78.0 H (11-32) umol/L Troponin I (0-0.045) ng/ml NT-Pro-B Natriuret Pep (0-900) pg/ml Total Protein (6.4-8.2) gm/dl Albumin (3.4-5.0) gm/dl Globulin (2.5-4.0) gm/dl Albumin/Globulin Ratio (0.9-2) Specimen Hemolysis Blood Type B Positive Antibody Screen NEGATIVE Imaging Data Radiologist's Impression: Radiology results as stated below per my review and the radiologist's interpretation: XR chest 1V portable CLINICAL HISTORY: 63 years-old Female presenting with Dyspnea. TECHNIQUE: Portable upright AP view of the chest was obtained. COMPARISON: 01/06/2019. FINDINGS: Atherosclerosis of the aortic arch. Cardiac silhouette enlarged. Elevated right hemidiaphragm as on prior. Coarsened lung markings with mildly prominent pulmonary vasculature. Chronic blunting of the right costophrenic angle. No new focal opacity. No pneumothorax. Multiple old rib fractures noted bilaterally. Advanced degenerative changes of the glenohumeral joints. Suspected bilateral chronic rotator cuff tears. Upper abdomen normal. IMPRESSION: 1. Cardiomegaly with mild volume overload. No advanced congestive change or pulmonary edema. 2. Chronically low lung volume on the right with elevated right hemidiaphragm. 3. Possible trace right pleural effusion or chronic change. This is similar to prior exam. 4. Chronic bilateral rib fractures. Electronically signed by: Adithya Simeon M.D. 02/05/2019 4:36 PM ECG Data Attestation: I personally reviewed and interpreted this ECG as follows: Indication: SOB/dyspnea Rate (beats per minute): 87 Rhythm: sinus rhythm Findings: + other (Normal axis.), + RBBB, + ST depression (in septal leads.) and + T-wave inversion Comparison ECG Date: from (01/06/19) Change: no significant change Blood Pressure Blood Pressure Findings: Low blood pressure Blood Pressure Disposition: further management by hospitalist LIBORIO Narrative Patient is a 63-year-old female who presents the ER with a past medical history of stage IV breast cancer and ITP followed by Dr. Light for confusion. Family member notes that the patient has been intermittently confused for about 20 to 30 minutes following sleeping twice today. On my exam patient is completely neurologically intact and appropriate. Significant other notes that she is at her baseline. Vital show that she is hypoxic at 84% on room air. She is instructed to wear oxygen just at night. She does take her 10 a inhibitor and has not forgot any doses. IV was established blood work was obtained showed a hemoglobin of 7.8 which is close to previous of 9. Platelet count was low at 25 consistent with previous and slightly improved. INR was unremarkable. BMP with mild acidosis. LFTs were unremarkable. BNP was slightly elevated at 4000. UA was negative. Discussed with patient BiPAP but she notes that she will not wear anything with a mask over her face. Patient will not wear CPAP at night. Did not perform a CT of her head as she is completely neurologically intact and oriented I do favor this secondary to hypoxia. Did not pursue PE any further as she is taking 10 a inhibitor. Chest x-ray appears to be not significantly changed from previous without any focal infiltrate. Patient was updated bedside discussed with hospitalist for observation. Impression & Plan Hypoxia, Thrombocytopenia, AMS (altered mental status), Anemia Critical Care Time Critical Care Time: Yes Total Critical Care Time: 30 I have personally spent 30 minutes of critical care time in the direct management of this patient. This includes bedside care, interpretation of diagnostic studies, and testing, discussion with consultants, patient, and family members, and other required patient management activities. This 30 minutes is in excess of all separately billable procedures. Discharge Plan Visit Data *Final* Discharge Date/Time: 02/05/19 20:30 Chief Complaint: Confusion Stated Complaint: CONFUSED ED Provider: Ifeanyi Cope Discharge Problem: Hypoxia, Thrombocytopenia, AMS (altered mental status), Anemia Patient Disposition: Admitted As Inpatient Discharge Instructions Interventions: ED Discharge Assessment Last Done: 02/05/19 20:30 Discharge Problem: AMS (altered mental status) Qualifiers: Altered mental status type: unspecified Qualified Code(s): R41.82 - Altered mental status, unspecified Anemia Qualifiers: Anemia type: unspecified type Qualified Code(s): D64.9 - Anemia, unspecified The scribe's documentation has been prepared under my direction and personally reviewed by me in its entirety. I confirm that the note above accurately reflects all work, treatment, procedures, and medical decision making performed by me.
[2019-02-05] MEDS: LORazepam 1 MG TAB PO PRN (22:49)
[2019-02-06 00:06] LABS: iSTAT Allen Test Pass; iSTAT Arterial Blood Gas HCO3 28 meg/L (19-24); iSTAT Arterial Blood Gas pCO2 61 mmHg (35-46); iSTAT Arterial Blood Gas pH 7.27 (7.35-7.45); iSTAT Arterial Blood Gas pO2 60 mmHg (80-95); iSTAT Carbon Dioxide 30 mEq/l (24-31); iSTAT Site R Radial
[2019-02-06 00:15] LABS: BUN Creatinine Ratio 23.4 (10-20); Calcium 8.6 mg/dl (8.5-10.1); Creatinine Clr Calc Pharmacy 58.3 ml/min; Est GFR (African American) 50.1; Est GFR (Non-African American) 43.2; Potassium 3.9 mmol/L (3.5-5.1)
[2019-02-06 06:19] LABS: Hematocrit (blood only) 25.5 % (37-47); Hemoglobin 7.3 g/dL (12.0-16.0); Mean Corpuscular Hemoglobin 25.7 pg (25-34); Mean Corpuscular Hgb Conc 28.6 g/dL (32-36); Mean Corpuscular Volume 89.8 fL (80-100); Nucleated RBC # (auto) 0.77 K/uL (0-0); Nucleated RBC % (auto) 15.5 %; Platelet Count 19 K/uL (130-400); RDW Coefficient of Variation 24.3 % (11.5-14.5); RDW Standard Deviation 77.4 fL (36.4-46.3); Red Blood Count 2.84 M/uL (4.2-5.4); White Blood Count 4.96 K/uL (4.8-10.8)
[2019-02-06 06:22] LABS: Anisocytosis Present; Basophilic Stippling 1+; Basophils # (auto) 0.12 K/uL (0-0.2); Basophils % (auto) 2.4 %; Eosinophils # (auto) 0.15 K/uL (0-0.5); Giant Platelets 2+; Hypochromasia Present; Immature Granulocytes # (auto) 0.17 K/uL (0.00-0.02); Immature Granulocytes % (auto) 3.4 %; Lymphocytes # (auto) 0.62 K/uL (1.2-3.4); Lymphocytes % (auto) 12.5 %; Monocytes # (auto) 0.44 K/uL (0.11-0.59); Monocytes % (auto) 8.9 %; Neutrophils # (auto) 3.46 K/uL (1.4-6.5); Neutrophils % (auto) 69.8 %; Platelet Estimate SIGNIFIC DECREASED (Normal); Polychromasia 1+; Tear Drop Cells 1+
[2019-02-06] MEDS ORDERED: FUROSEMIDE 60 MG in SYRINGE 0 ML IV ONE ×2 (06:32→08:00)
[2019-02-06] MEDS: cefTRIAXone SODIUM 2,000 MG in DEXTROSE 5% 50 ML IV SCH (08:20)
[2019-02-06] MEDS: LACTULOSE SYRUP 30 GM/45 ML UDP PO SCH ×3 (08:21→21:04)
[2019-02-06] MEDS: APIXABAN 5 MG TABLET PO SCH ×2 (08:21→21:04)
[2019-02-06] MEDS: DULOXETINE HCL 60 MG CAP PO SCH (08:21)
[2019-02-06] MEDS: PANTOprazole 40 MG TAB PO SCH ×2 (08:21→21:05)
[2019-02-06] MEDS: FEXOFENADINE HCL 180 MG TAB PO SCH (08:22)
[2019-02-06] MEDS: METOPROLOL SUCC 25MG EXT REL TAB PO SCH ×2 (08:22→21:05)
[2019-02-06] MEDS: TOPIRAMATE 25 MG TAB PO SCH ×2 (08:22→21:06)
[2019-02-06] MEDS: guaiFENesin 600 MG TABCR PO SCH ×2 (08:22→21:05)
[2019-02-06] MEDS: OXYCODONE HCL 10 MG TABCR (OXYCONTIN) PO SCH ×2 (08:24→21:10)
[2019-02-06] MEDS: INSULIN GLARGINE SOLOSTAR 100 UNITS/ML 3 ML PEN SQ SCH ×2 (08:25→21:13)
--- NOTE | 2019-02-06 11:59 | Cardiology Consultation ---
Date of Consultation February 06, 2019 Assessment & Plan (1) Respiratory failure with hypoxia and hypercapnia: (2) Hypoxia: (3) Thrombocytopenia: (4) AMS (altered mental status): (5) Anemia: (6) TYE (obstructive sleep apnea): (7) Obesity hypoventilation syndrome: (8) Metastatic breast cancer: I do not believe there is clear or any immediate cardiac problems that need evaluation or treatment. The patient is currently hemodynamically stable. Today during my interview she was alert and oriented in no acute distress. History of Present Illness Attending Physician: Dylan Sam MD History of Present Illness This is a 63-year-old female with a history of obesity, sleep apnea and chronic right heart failure who is being treated for metastatic breast cancer. She had mental status changes and was brought to the hospital where she was found to have a low blood counts with pancytopenia and hypoxia.. Her symptoms as well as blood dyscrasia are most likely due to the antineoplastic treatment. She has no current cardiac complaints. She denies progressive shortness of breath. She said no chest pain she has had no heart palpitations or tachycardia. Past medical history: 1. Chronic compensated diastolic and right-sided heart failure 2. Obesity with TYE 3. Chronic renal insufficiency 4. Right-sided breast cancer with bony metastatic disease 5. 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 DM-2 Allergies Allergy/AdvReac Type Severity Reaction Status Date / Time gabapentin AdvReac Hallucinati Verified 02/05/19 17:00 ng Home Medications Home Medications Medication Instructions Recorded Confirmed Type cholecalciferol (vitamin D3) 2,000 unit PO QAM 03/05/18 02/05/19 History [Vitamin D3] fexofenadine [Rocio Allergy] 180 mg PO QAM 03/05/18 02/05/19 History insulin aspart U-100 0 units SUBCUT AC 03/05/18 02/05/19 History lorazepam 1 mg PO BID PRN 03/05/18 02/05/19 History Lantus Solostar U-100 Insulin See Rx Instructions .ROUTE 05/16/18 02/05/19 Rx .COMPLEX #15 ml metoprolol succinate 25 mg PO BID #60 ea 05/16/18 02/05/19 Rx Eliquis 5 mg PO BID 01/06/19 02/05/19 History Xgeva 120 mg SUBCUT MONTHLY 01/06/19 02/05/19 History duloxetine 60 mg PO QAM 01/06/19 02/05/19 History fulvestrant [Faslodex] 250 mg IM Q14D 01/06/19 02/05/19 History hydromorphone 2 mg PO Q6H PRN 01/06/19 02/05/19 History hydroxyzine HCl 25 mg PO BID 01/06/19 02/05/19 History omeprazole 20 mg PO BID 01/06/19 02/05/19 History ondansetron HCl 8 mg PO Q8H PRN 01/06/19 02/05/19 History oxycodone [OxyContin] 10 mg PO Q12H 01/06/19 02/05/19 History tizanidine 4 mg PO BID PRN 01/06/19 02/05/19 History topiramate 25 mg PO BID 01/06/19 02/05/19 History torsemide 20 mg PO DAILY PRN 01/06/19 02/05/19 History Patient History Medical History TYE (obstructive sleep apnea) (Chronic) Obesity hypoventilation syndrome (Chronic) History of DVT (deep vein thrombosis) (Chronic) Right-sided heart failure (Chronic) Thrombocytopenia (Chronic) Metastatic breast cancer (Chronic) CKD (chronic kidney disease), stage III (Chronic) ATN (acute tubular necrosis) (Resolved) DM type 2 (diabetes mellitus, type 2) (Chronic) Hyperlipidemia (Chronic) Irritable bowel syndrome (Chronic) Rheumatoid arthritis (Chronic) Osteoarthritis (Chronic) Hypertension (Chronic) Breast cancer metastasized to bone (Inactive) Chronic kidney disease (Inactive) Rheumatoid arthritis (Inactive) Surgical History History of hernia repair (Chronic) Family History Mother Stroke Social History Preferred Language: Latvian Communication Ability: Effective Visual Impairment: No Limitations Automobile Accessories Installer Required: No Beliefs That Will Affect Care: None marital status: Current Living Situation: Spouse Other Information That Helps Us Care for You: No Feels Safe at Home: Yes Safety Concerns: Feels Safe At This Time Smoking Status: Never smoker Second Hand Exposure: No ; Hx Alcohol Use: No Hx Substance Use: No Review of Systems Review of Systems: All systems reviewed & are unremarkable except as noted in HPI & below Nothing additional to add Physical Exam Physical Exam: General: no acute distress and stated age Head: normocephalic, no masses, lesions, tenderness or abnormalities Eyes: conjunctiva are pink and non-injected, sclera clear Neck: supple, no adenopathy, no bruits, normal jugular venous pulse, no hepatojugular reflux Chest: normal shape and normal respiratory effort Lungs: clear to auscultation and percussion Cardiac Exam: - regular rate & rhythm, no murmurs gallops or rubs - normal S1, normal S2 Pulses: 2(+) throughout Abdomen: abdomen soft, non-tender, no abnormal masses and no hepatosplenomegaly Musculoskeletal: no gait disturbance, no joint inflammation, no deforming arthritis Extremities: no edema and no cyanosis Neuro: grossly normal exam Results & Data Vital Signs (Past 12 Hours) Vital Signs Temp Pulse Pulse Resp BP Pulse Ox 02/06/19 07:30 36.4 C L 71 22 136/80 91 02/06/19 03:34 36.4 C L 67 24 144/81 H 100 02/06/19 03:00 64 20 99 Laboratory Results Laboratory Results - last 24 hr 02/05/19 02/05/19 02/05/19 17:15 17:15 17:15 WBC 5.79 RBC 3.08 L Hgb 7.8 L Hct 27.6 L MCV 89.6 MCH 25.3 MCHC 28.3 L RDW Std Deviation 77.7 H RDW Coeff of Flori 24.5 H Plt Count 25 L* Immature Gran % (Auto) 2.6 Neut % (Auto) 73.7 Lymph % (Auto) 10.0 Alexander % (Auto) 6.9 Eos % (Auto) 3.3 Baso % (Auto) 3.5 Immature Gran # (Auto) 0.15 H Neut # (Auto) 4.27 Lymph # (Auto) 0.58 L Alexander # (Auto) 0.40 Eos # (Auto) 0.19 Baso # (Auto) 0.20 Absolute Nucleated RBC 1.01 H Nucleated RBC % (auto) 17.5 Platelet Estimate SIGNIFIC DECREASED Giant Platelets Polychromasia 1+ Hypochromasia Present Basophilic Stippling 1+ Anisocytosis Present Tear Drop Cells PT 11.0 INR 1.1 APTT 23.6 PTT Ratio 0.9 Sample Site POC pH POC pCO2 POC pO2 POC HCO3 POC Total CO2 POC Base Excess ABG pH ABG pCO2 ABG pO2 ABG HCO3 POC ABG O2 Sat ABG O2 Saturation ABG Base Excess Robert Test Barometric Pressure Oxygen Given O2 Delivery Device Sodium 141 Potassium 5.0 Chloride 109 H Carbon Dioxide 29 Anion Gap 3.0 BUN 32 H Creatinine 1.32 H Est Cr Clr Drug Dosing Not Reportable Est GFR ( Amer) 49.6 Est GFR (Non-Af Amer) 42.8 BUN/Creatinine Ratio 24.1 H Glucose 125 H POC Glucose Calcium 8.6 Magnesium 1.9 Total Bilirubin 0.5 AST 30 ALT 11 L Alkaline Phosphatase 118 H Ammonia Troponin I 0.016 NT-Pro-B Natriuret Pep 4339 H Total Protein 7.6 Albumin 2.6 L Globulin 5.0 H Albumin/Globulin Ratio 0.5 L Specimen Hemolysis Urine Color Urine Appearance Urine pH Ur Specific [place] Urine Protein Urine Glucose (UA) Urine Ketones Urine Blood Urine Nitrite Urine Bilirubin Urine Urobilinogen Ur Leukocyte Esterase Urine WBC (Auto) Urine RBC (Auto) U Hyaline Cast (Auto) U Epithel Cells (Auto) Urine Bacteria (Auto) Hepatitis C Ab Screen Influenza Type A (PCR) Influenza Type B (PCR) Blood Type Antibody Screen 02/05/19 02/05/19 02/05/19 19:37 19:37 19:37 WBC RBC Hgb Hct MCV MCH MCHC RDW Std Deviation RDW Coeff of Flori Plt Count Immature Gran % (Auto) Neut % (Auto) Lymph % (Auto) Alexander % (Auto) Eos % (Auto) Baso % (Auto) Immature Gran # (Auto) Neut # (Auto) Lymph # (Auto) Alexander # (Auto) Eos # (Auto) Baso # (Auto) Absolute Nucleated RBC Nucleated RBC % (auto) Platelet Estimate Giant Platelets Polychromasia Hypochromasia Basophilic Stippling Anisocytosis Tear Drop Cells PT INR APTT PTT Ratio Sample Site POC pH POC pCO2 POC pO2 POC HCO3 POC Total CO2 POC Base Excess ABG pH 7.24 L ABG pCO2 67 H ABG pO2 77 L ABG HCO3 28 H POC ABG O2 Sat ABG O2 Saturation 89.9 L ABG Base Excess 0.3 Robert Test POS Barometric Pressure 737.7 Oxygen Given 4L O2 O2 Delivery Device Sodium Potassium Chloride Carbon Dioxide Anion Gap BUN Creatinine Est Cr Clr Drug Dosing Est GFR ( Amer) Est GFR (Non-Af Amer) BUN/Creatinine Ratio Glucose POC Glucose Calcium Magnesium Total Bilirubin AST ALT Alkaline Phosphatase Ammonia 78.0 H Troponin I NT-Pro-B Natriuret Pep Total Protein Albumin Globulin Albumin/Globulin Ratio Specimen Hemolysis Urine Color Urine Appearance Urine pH Ur Specific [place] Urine Protein Urine Glucose (UA) Urine Ketones Urine Blood Urine Nitrite Urine Bilirubin Urine Urobilinogen Ur Leukocyte Esterase Urine WBC (Auto) Urine RBC (Auto) U Hyaline Cast (Auto) U Epithel Cells (Auto) Urine Bacteria (Auto) Hepatitis C Ab Screen Influenza Type A (PCR) Influenza Type B (PCR) Blood Type B Positive Antibody Screen NEGATIVE 02/05/19 02/05/19 02/05/19 20:58 21:05 21:40 WBC RBC Hgb Hct MCV MCH MCHC RDW Std Deviation RDW Coeff of Flori Plt Count Immature Gran % (Auto) Neut % (Auto) Lymph % (Auto) Alexander % (Auto) Eos % (Auto) Baso % (Auto) Immature Gran # (Auto) Neut # (Auto) Lymph # (Auto) Alexander # (Auto) Eos # (Auto) Baso # (Auto) Absolute Nucleated RBC Nucleated RBC % (auto) Platelet Estimate Giant Platelets Polychromasia Hypochromasia Basophilic Stippling Anisocytosis Tear Drop Cells PT INR APTT PTT Ratio Sample Site POC pH POC pCO2 POC pO2 POC HCO3 POC Total CO2 POC Base Excess ABG pH ABG pCO2 ABG pO2 ABG HCO3 POC ABG O2 Sat ABG O2 Saturation ABG Base Excess Robert Test Barometric Pressure Oxygen Given O2 Delivery Device Sodium Potassium Chloride Carbon Dioxide Anion Gap BUN Creatinine Est Cr Clr Drug Dosing Est GFR ( Amer) Est GFR (Non-Af Amer) BUN/Creatinine Ratio Glucose POC Glucose 112 H Calcium Magnesium Total Bilirubin AST ALT Alkaline Phosphatase Ammonia Troponin I NT-Pro-B Natriuret Pep Total Protein Albumin Globulin Albumin/Globulin Ratio Specimen Hemolysis Urine Color Yellow Urine Appearance Cloudy A Urine pH 5.0 Ur Specific [place] 1.017 Urine Protein 1+ H Urine Glucose (UA) Negative Urine Ketones Negative Urine Blood Trace H Urine Nitrite Negative Urine Bilirubin Negative Urine Urobilinogen Negative Ur Leukocyte Esterase 1+ H Urine WBC (Auto) >30 H Urine RBC (Auto) 0-4 U Hyaline Cast (Auto) 5-10 H U Epithel Cells (Auto) 10-20 H Urine Bacteria (Auto) 4+ H Hepatitis C Ab Screen Influenza Type A (PCR) Neg for Influ A Influenza Type B (PCR) Neg for Influ B Blood Type Antibody Screen 02/05/19 02/05/19 02/05/19 23:36 23:36 23:55 WBC RBC Hgb Hct MCV MCH MCHC RDW Std Deviation RDW Coeff of Flori Plt Count Immature Gran % (Auto) Neut % (Auto) Lymph % (Auto) Alexander % (Auto) Eos % (Auto) Baso % (Auto) Immature Gran # (Auto) Neut # (Auto) Lymph # (Auto) Alexander # (Auto) Eos # (Auto) Baso # (Auto) Absolute Nucleated RBC Nucleated RBC % (auto) Platelet Estimate Giant Platelets Polychromasia Hypochromasia Basophilic Stippling Anisocytosis Tear Drop Cells PT INR APTT PTT Ratio Sample Site R Radial POC pH 7.27 L POC pCO2 61 H POC pO2 60 L POC HCO3 28 H POC Total CO2 30 POC Base Excess 1.0 ABG pH ABG pCO2 ABG pO2 ABG HCO3 POC ABG O2 Sat 86.0 L ABG O2 Saturation ABG Base Excess Robert Test Pass Barometric Pressure Oxygen Given O2 Delivery Device Cannula Sodium 144 Potassium 3.9 D Chloride 109 H Carbon Dioxide 30 Anion Gap 5.0 BUN 31 H Creatinine 1.31 H Est Cr Clr Drug Dosing 58.3 Est GFR ( Amer) 50.1 Est GFR (Non-Af Amer) 43.2 BUN/Creatinine Ratio 23.4 H Glucose 157 H POC Glucose Calcium 8.6 Magnesium Total Bilirubin AST ALT Alkaline Phosphatase Ammonia Troponin I NT-Pro-B Natriuret Pep Total Protein Albumin Globulin Albumin/Globulin Ratio Specimen Hemolysis Urine Color Urine Appearance Urine pH Ur Specific [place] Urine Protein Urine Glucose (UA) Urine Ketones Urine Blood Urine Nitrite Urine Bilirubin Urine Urobilinogen Ur Leukocyte Esterase Urine WBC (Auto) Urine RBC (Auto) U Hyaline Cast (Auto) U Epithel Cells (Auto) Urine Bacteria (Auto) Hepatitis C Ab Screen Neg Influenza Type A (PCR) Influenza Type B (PCR) Blood Type Antibody Screen 02/06/19 02/06/19 02/06/19 05:37 05:37 05:37 WBC 4.96 RBC 2.84 L Hgb 7.3 L Hct 25.5 L MCV 89.8 MCH 25.7 MCHC 28.6 L RDW Std Deviation 77.4 H RDW Coeff of Flori 24.3 H Plt Count 19 L* Immature Gran % (Auto) 3.4 Neut % (Auto) 69.8 Lymph % (Auto) 12.5 Alexander % (Auto) 8.9 Eos % (Auto) 3.0 Baso % (Auto) 2.4 Immature Gran # (Auto) 0.17 H Neut # (Auto) 3.46 Lymph # (Auto) 0.62 L Alexander # (Auto) 0.44 Eos # (Auto) 0.15 Baso # (Auto) 0.12 Absolute Nucleated RBC 0.77 H Nucleated RBC % (auto) 15.5 Platelet Estimate SIGNIFIC DECREASED Giant Platelets 2+ Polychromasia 1+ Hypochromasia Present Basophilic Stippling 1+ Anisocytosis Present Tear Drop Cells 1+ PT INR APTT PTT Ratio Sample Site POC pH POC pCO2 POC pO2 POC HCO3 POC Total CO2 POC Base Excess ABG pH ABG pCO2 ABG pO2 ABG HCO3 POC ABG O2 Sat ABG O2 Saturation ABG Base Excess Robert Test Barometric Pressure Oxygen Given O2 Delivery Device Sodium Potassium Chloride Carbon Dioxide Anion Gap BUN Creatinine Est Cr Clr Drug Dosing Est GFR ( Amer) Est GFR (Non-Af Amer) BUN/Creatinine Ratio Glucose POC Glucose Calcium Magnesium Total Bilirubin AST ALT Alkaline Phosphatase Ammonia 76.0 H Troponin I < 0.015 NT-Pro-B Natriuret Pep Total Protein Albumin Globulin Albumin/Globulin Ratio Specimen Hemolysis Urine Color Urine Appearance Urine pH Ur Specific [place] Urine Protein Urine Glucose (UA) Urine Ketones Urine Blood Urine Nitrite Urine Bilirubin Urine Urobilinogen Ur Leukocyte Esterase Urine WBC (Auto) Urine RBC (Auto) U Hyaline Cast (Auto) U Epithel Cells (Auto) Urine Bacteria (Auto) Hepatitis C Ab Screen Influenza Type A (PCR) Influenza Type B (PCR) Blood Type Antibody Screen 02/06/19 07:26 WBC RBC Hgb Hct MCV MCH MCHC RDW Std Deviation RDW Coeff of Flori Plt Count Immature Gran % (Auto) Neut % (Auto) Lymph % (Auto) Alexander % (Auto) Eos % (Auto) Baso % (Auto) Immature Gran # (Auto) Neut # (Auto) Lymph # (Auto) Alexander # (Auto) Eos # (Auto) Baso # (Auto) Absolute Nucleated RBC Nucleated RBC % (auto) Platelet Estimate Giant Platelets Polychromasia Hypochromasia Basophilic Stippling Anisocytosis Tear Drop Cells PT INR APTT PTT Ratio Sample Site POC pH POC pCO2 POC pO2 POC HCO3 POC Total CO2 POC Base Excess ABG pH ABG pCO2 ABG pO2 ABG HCO3 POC ABG O2 Sat ABG O2 Saturation ABG Base Excess Robert Test Barometric Pressure Oxygen Given O2 Delivery Device Sodium Potassium Chloride Carbon Dioxide Anion Gap BUN Creatinine Est Cr Clr Drug Dosing Est GFR ( Amer) Est GFR (Non-Af Amer) BUN/Creatinine Ratio Glucose POC Glucose 149 H Calcium Magnesium Total Bilirubin AST ALT Alkaline Phosphatase Ammonia Troponin I NT-Pro-B Natriuret Pep Total Protein Albumin Globulin Albumin/Globulin Ratio Specimen Hemolysis Urine Color Urine Appearance Urine pH Ur Specific [place] Urine Protein Urine Glucose (UA) Urine Ketones Urine Blood Urine Nitrite Urine Bilirubin Urine Urobilinogen Ur Leukocyte Esterase Urine WBC (Auto) Urine RBC (Auto) U Hyaline Cast (Auto) U Epithel Cells (Auto) Urine Bacteria (Auto) Hepatitis C Ab Screen Influenza Type A (PCR) Influenza Type B (PCR) Blood Type Antibody Screen Medications Administered Current Inpatient Medications Acetaminophen (Tylenol) 650 mg PO Q4H PRN PRN Reason: Pain or Fever Stop: 03/07/19 20:56 Apixaban (Eliquis) 5 mg PO BID [facility] Stop: 03/07/19 21:44 Last Admin: 02/06/19 08:21 Dose: 5 mg Documented by: Dextrose (Dextrose 50%) 25 - 50 ml IV UD PRN; Protocol PRN Reason: Hypoglycemia Protocol Stop: 03/07/19 20:56 Duloxetine HCl (Cymbalta) 60 mg PO QAM [facility] Stop: 03/08/19 08:59 Last Admin: 02/06/19 08:21 Dose: 60 mg Documented by: Fexofenadine HCl (Rocio) 180 mg PO QAM [facility] Stop: 03/08/19 08:59 Last Admin: 02/06/19 08:22 Dose: 180 mg Documented by: Glucagon (Glucagen) 1 mg SQ UD PRN; Protocol PRN Reason: Hypoglycemia Protocol Stop: 03/07/19 20:56 Glucose (Glucose 40%) 15 - 30 gm PO UD PRN; Protocol PRN Reason: Hypoglycemia Protocol Stop: 03/07/19 20:56 Glucose (Dex4 Glucose) 4 - 8 tabs PO UD PRN; Protocol PRN Reason: Hypoglycemia Protocol Stop: 03/07/19 20:56 Guaifenesin (Mucinex) 600 mg PO Q12 [facility] Stop: 03/07/19 21:44 Last Admin: 02/06/19 08:22 Dose: 600 mg Documented by: Hydromorphone HCl (Dilaudid) 2 mg PO Q6H PRN PRN Reason: Pain Stop: 02/19/19 20:56 Hydroxyzine HCl (Vistaril) 25 mg PO BID [facility] Stop: 03/07/19 20:59 Last Admin: 02/06/19 08:21 Dose: 25 mg Documented by: Promethazine HCl 12.5 mg/ (Sodium Chloride) 50.5 mls @ 202 mls/hr IV Q6H PRN PRN Reason: Nausea And Vomiting Stop: 03/07/19 20:56 Ceftriaxone Sodium 2,000 mg/ (Dextrose) 70 mls @ 100 mls/hr IV Q24H [facility]; Protocol Stop: 02/16/19 06:59 Last Infusion: 02/06/19 09:02 Dose: Infused Documented by: Insulin Aspart (Novolog Flexpen) 0 units SC ACHS [facility] Stop: 03/07/19 20:59 Last Admin: 02/05/19 22:23 Dose: Not Given Documented by: Insulin Glargine (Lantus Solostar Pen) 5 units SQ BID [facility] Stop: 03/08/19 08:59 Last Admin: 02/06/19 08:25 Dose: 5 units Documented by: Lactulose (Chronulac) 30 gm PO TID [facility] Stop: 03/08/19 08:59 Last Admin: 02/06/19 08:21 Dose: 30 gm Documented by: Lorazepam (Ativan) 1 mg PO BID PRN PRN Reason: Anxiety Stop: 03/07/19 20:56 Last Admin: 02/05/19 22:49 Dose: 1 mg Documented by: Metoprolol Succinate (Toprol Xl) 25 mg PO BID [facility] Stop: 03/07/19 21:44 Last Admin: 02/06/19 08:22 Dose: 25 mg Documented by: Miscellaneous (Carbohydrates For Hypoglycemia) 15 - 30 gm PO UD PRN PRN Reason: Hypoglycemia Treatment Stop: 03/07/19 20:56 Nitroglycerin (Nitrostat) 0.4 mg SL UD PRN PRN Reason: Chest Pain Stop: 03/07/19 20:56 Oxycodone HCl (Oxycontin) 10 mg PO Q12 [facility] Stop: 02/19/19 21:29 Last Admin: 02/06/19 08:24 Dose: 10 mg Documented by: Pantoprazole Sodium (Protonix) 40 mg PO BID [facility]; Protocol Stop: 03/07/19 21:44 Last Admin: 02/06/19 08:21 Dose: 40 mg Documented by: Topiramate (Topamax) 25 mg PO BID [facility] Stop: 03/07/19 21:44 Last Admin: 02/06/19 08:22 Dose: 25 mg Documented by: (1) Anemia Anemia type: unspecified type Qualified Code(s): D64.9 - Anemia, unspecified (2) AMS (altered mental status) Altered mental status type: unspecified Qualified Code(s): R41.82 - Altered mental status, unspecified
--- NOTE | 2019-02-06 13:13 | Gastrointestinal Consultation ---
Date of Consultation February 06, 2019 Assessment & Plan (1) AMS (altered mental status): (2) Metastatic breast cancer: (3) Hyperammonemia: Pt is a 63 y/o female admitted for confusion now resolved noted to have mildly elevated ammonia level. Hx of R breast ca w bony and possibly liver mets. Previous CT showed nodularity of liver, LFTs and INR normal. She has ITP (plt in 20s) and had been started recently on Rituxan. On exam she is AAOx 3, and cites that she had mild confusion at times w Rituxan previously. ? elevated ammonia related to mild cirrhosis vs renal insufficiency vs med (Topamax). Discussed at length w her about possible workup including obtaining serologies, further imaging studies to r/o cirrhosis; and additional maintenance for liver disease care. She is however not interested in pursuing any further workup for possible liver disease and wants to focus on her breast ca treatment at this time. GI to sign off; pls recall prn Supervising Physician Co-Signing Physician Notes I have personally seen and examined the patient with REJI Pate. Her note reflects my exam and findings. I agree with her impression and plan. I do not think liver disease is significantly contributing to her current disease state given metastatic disease. Discussed with as well at bedside. Rashid Yeager M.D. History of Present Illness Reason for Consultation: Hyperammonemia Requesting Physician: Dr. Baldomero Merino Attending Physician: Dr. Rashid Yeager History of Present Illness Pt is a 63 y/o female who was admitted yesterday for confusion and also noted to have elevated ammonia level of 78. She is AAOx3 today, able to provide me full history. She has R breast ca w bony and possible now liver mets based on her latest PET scan. She had been on Xgeva and Abemaciclib, and recently started on Rituxam for ITP. She does report intermittent confusion at times following Rituxan administration. Her current platelets are around 20. H/H 7/25, Hgb baseline 9. She had some nose bleeds which had resolved but denies any other signs of bleeds including hematoma, hematuria, rectal bleeding, black tarry stools. Previous CT abd/pelvis done in April that her liver appear slightly nodular. LFTs normal. INR 1.1 Allergies Allergy/AdvReac Type Severity Reaction Status Date / Time gabapentin AdvReac Hallucinati Verified 02/05/19 17:00 ng Home Medications Home Medications Medication Instructions Recorded Confirmed Type cholecalciferol (vitamin D3) 2,000 unit PO QAM 03/05/18 02/05/19 History [Vitamin D3] fexofenadine [Rocio Allergy] 180 mg PO QAM 03/05/18 02/05/19 History insulin aspart U-100 0 units SUBCUT AC 03/05/18 02/05/19 History lorazepam 1 mg PO BID PRN 03/05/18 02/05/19 History Lantus Solostar U-100 Insulin See Rx Instructions .ROUTE 05/16/18 02/05/19 Rx .COMPLEX #15 ml metoprolol succinate 25 mg PO BID #60 ea 05/16/18 02/05/19 Rx Eliquis 5 mg PO BID 01/06/19 02/05/19 History Xgeva 120 mg SUBCUT MONTHLY 01/06/19 02/05/19 History duloxetine 60 mg PO QAM 01/06/19 02/05/19 History fulvestrant [Faslodex] 250 mg IM Q14D 01/06/19 02/05/19 History hydromorphone 2 mg PO Q6H PRN 01/06/19 02/05/19 History hydroxyzine HCl 25 mg PO BID 01/06/19 02/05/19 History omeprazole 20 mg PO BID 01/06/19 02/05/19 History ondansetron HCl 8 mg PO Q8H PRN 01/06/19 02/05/19 History oxycodone [OxyContin] 10 mg PO Q12H 01/06/19 02/05/19 History tizanidine 4 mg PO BID PRN 01/06/19 02/05/19 History topiramate 25 mg PO BID 01/06/19 02/05/19 History torsemide 20 mg PO DAILY PRN 01/06/19 02/05/19 History Patient History Medical History TYE (obstructive sleep apnea) (Chronic) Obesity hypoventilation syndrome (Chronic) History of DVT (deep vein thrombosis) (Chronic) Right-sided heart failure (Chronic) Thrombocytopenia (Chronic) Metastatic breast cancer (Chronic) CKD (chronic kidney disease), stage III (Chronic) ATN (acute tubular necrosis) (Resolved) DM type 2 (diabetes mellitus, type 2) (Chronic) Hyperlipidemia (Chronic) Irritable bowel syndrome (Chronic) Rheumatoid arthritis (Chronic) Osteoarthritis (Chronic) Hypertension (Chronic) Breast cancer metastasized to bone (Inactive) Chronic kidney disease (Inactive) Rheumatoid arthritis (Inactive) Surgical History History of hernia repair (Chronic) Family History Mother Stroke Social History Preferred Language: Turkish Communication Ability: Effective Visual Impairment: No Limitations Blood Bank Technologist Required: No Beliefs That Will Affect Care: None marital status: Current Living Situation: Spouse Other Information That Helps Us Care for You: No Feels Safe at Home: Yes Safety Concerns: Feels Safe At This Time Smoking Status: Never smoker Second Hand Exposure: No ; Hx Alcohol Use: No Hx Substance Use: No Review of Systems Review of Systems: All systems reviewed & are unremarkable except as noted in HPI & below Physical Exam Constitutional: + obese, well groomed, cooperative and comfortable Eyes: PERRL, conjunctivae normal, anicteric sclerae ENMT: external ear and nose normal, oropharynx normal Respiratory: no respiratory distress and does not use accessory muscles Auscultation: + diminished lung sounds Cardiovascular: RRR, no murmur, no edema Gastrointestinal (Abdomen): Percussion/Palpation: abdomen soft; abdomen nontender large pannus Skin: no rashes, warm and dry no jaundice Neurologic: Motor/Sensory: no asterixis Psychiatric: A+Ox3, euthymic affect Lymphatic: Generalized leg edema Results & Data Vital Signs (Past 12 Hours) Vital Signs Temp Pulse Pulse Resp BP Pulse Ox 02/06/19 11:59 36.9 C 66 22 145/75 H 94 02/06/19 07:30 36.4 C L 71 22 136/80 91 02/06/19 03:34 36.4 C L 67 24 144/81 H 100 02/06/19 03:00 64 20 99 (1) AMS (altered mental status) Altered mental status type: unspecified Qualified Code(s): R41.82 - Altered mental status, unspecified
[2019-02-06] MEDS: INSULIN ASPART 100 UNITS/ML 3 ML PEN SC SCH ×4 (14:43→21:13)
--- NOTE | 2019-02-06 15:19 | Pulmonary Consultation ---
Date of Consultation February 06, 2019 Assessment & Plan (1) Respiratory failure with hypoxia and hypercapnia: 63yo female with a PMHx significant for morbid obesity with possible TYE/obesity hypoventilation syndrome, metastatic breast cancer, CHF with pulmonary hypertension, idiopathic thrombocytopenic purpura (ITP) on Rituxan therapy, chronic DVT on Eliquis, RA and DMII currently treated with insulin. Pulmonology was consulted for her acute hypercapnic respiratory failure. Acute hypercapnic respiratory failure -ABG with what appears to be an acute on chronic respiratory acidosis -Pt morbidly obese, no definite dx of TYE/Obesity hypoventilation syndrome which is likely contributing. -uses O2 at night, no Hx of CPAP/BiPAP use at night as pt states she is claustrophobic -currently on opiates and benzos chronically for Hx of metastatic breast cancer which can cause a decrease in respiratory drive. -can consider CT scan of the head for possible metastatic disease to the brain or an intracerebral bleed/subdural hematoma that can also cause the hypercapnic respiratory failure. -can benefit from CPAP/BiPAP at night given chronic component CHF with Pulmonary Hypertension -currently appears to be volume overloaded secondary to diastolic heart failure -can consider IV diuresis with strict Is &Os Hyperammonemia -Ammonia levels increased with normal liver enzymes -could be a possible sideeffect of her Rituxan use (published reports) -Or could be due to nutmeg liver or possible cardiac cirrhosis -It is noted that GI is consulted as well. Thank you for this consult. Please see my attending physician's addendum for further instructions. (2) Hyperammonemia: (3) Encephalopathy: (4) Acute hypercapnic respiratory failure: (5) Acute hypoxemic respiratory failure: Supervising Physician Co-Signing Physician Notes Patient seen and examined with resident/physician Dr. Sher and I agree with her assessment and plan aside for any additions/exceptions noted: Patient has a history of stage IV metastatic breast cancer, morbid obesity, likely obesity hypoventilation syndrome and sleep apnea, secondary pulmonary hypertension (due to WHO class II and III pulmonary hypertension), CKD, chronic DVT on apixaban and history of ITP on Rituxan therapy who presented to the hospital with acute hypercapnic respiratory failure and hypoxemia. She does note that she wears oxygen at night. She appears to have severe volume overload likely related to diastolic heart failure and secondary pulmonary hypertension. Recommend IV diuresis with close monitoring of input and output. She also appears to have an elevated ammonia and I wonder if she has an underlying cirrhosis. There are published studies of Rituxan causing hyperammonemia. Although, I think the more likely culprit in her case may be a cardiac cirrhosis. Gastroenterology is involved and apparently the patient declined further work-up of her hyperammonemia at this time. Certainly the current opiates, benzos and metabolic issues that she has may have caused a decrease in her respiratory drive and a subsequent hypercapnic respiratory failure. I would also recommend a possible CT scan to evaluate for metastatic disease and to rule out any chronic subdural hematoma which can lead to altered sensorium. However, I do think this is less likely given that she is nonfocal on exam. She likely does have a chronic component of hypercapnia given her chronically elevated bicarb of 30 and she would benefit from BiPAP. She says she is extremely claustrophobic and would not want to wear CPAP or BiPAP at this present time. I offered her the option of wearing a mask during the day to help her get acquainted with noninvasive ventilation and she said that she will consider this. Lastly, but perhaps most importantly, she is severely morbidly obese and I think many of her issues are exacerbated by her underlying obesity. Certainly her respiratory failure is multifactorial as well given her underlying anemia, stage IV metastatic cancer, morbid obesity and underlying heart failure. Pulmonary will follow patient peripherally. Thank you for the consult. History of Present Illness Attending Physician: Dylan Sam MD History of Present Illness Pt is a 63yo female with a PMHx significant for metastatic breast cancer, idiopathic thrombocytopenic purpura (ITP), RA and DMII currently treated with insulin who had hypoxia and hypercapnia. States she was diagnosed with breast cancer last year, and has been on Rituxan and hormone therapy. States she has never been diagnosed with TYE but used CPAP for the first time last night after being sedated, as she would not be able to tolerate it otherwise as she is claustrophobic. States she has always been obese, with recent weight loss since being diagnosed with breast cancer. Has never smoked, denies chronic alcoholic use. Has a history of DVT currently on Eliquis. States she has used steroids in the past for her ITP but it put her in a diabetic coma. Allergies Allergy/AdvReac Type Severity Reaction Status Date / Time gabapentin AdvReac Hallucinati Verified 02/05/19 17:00 ng Home Medications Home Medications Medication Instructions Recorded Confirmed Type cholecalciferol (vitamin D3) 2,000 unit PO QAM 03/05/18 02/05/19 History [Vitamin D3] fexofenadine [Rocio Allergy] 180 mg PO QAM 03/05/18 02/05/19 History insulin aspart U-100 0 units SUBCUT AC 03/05/18 02/05/19 History lorazepam 1 mg PO BID PRN 03/05/18 02/05/19 History Lantus Solostar U-100 Insulin See Rx Instructions .ROUTE 05/16/18 02/05/19 Rx .COMPLEX #15 ml metoprolol succinate 25 mg PO BID #60 ea 05/16/18 02/05/19 Rx Eliquis 5 mg PO BID 01/06/19 02/05/19 History Xgeva 120 mg SUBCUT MONTHLY 01/06/19 02/05/19 History duloxetine 60 mg PO QAM 01/06/19 02/05/19 History fulvestrant [Faslodex] 250 mg IM Q14D 01/06/19 02/05/19 History hydromorphone 2 mg PO Q6H PRN 01/06/19 02/05/19 History hydroxyzine HCl 25 mg PO BID 01/06/19 02/05/19 History omeprazole 20 mg PO BID 01/06/19 02/05/19 History ondansetron HCl 8 mg PO Q8H PRN 01/06/19 02/05/19 History oxycodone [OxyContin] 10 mg PO Q12H 01/06/19 02/05/19 History tizanidine 4 mg PO BID PRN 01/06/19 02/05/19 History topiramate 25 mg PO BID 01/06/19 02/05/19 History torsemide 20 mg PO DAILY PRN 01/06/19 02/05/19 History Patient History Medical History TYE (obstructive sleep apnea) (Chronic) Obesity hypoventilation syndrome (Chronic) History of DVT (deep vein thrombosis) (Chronic) Right-sided heart failure (Chronic) Thrombocytopenia (Chronic) Metastatic breast cancer (Chronic) CKD (chronic kidney disease), stage III (Chronic) ATN (acute tubular necrosis) (Resolved) DM type 2 (diabetes mellitus, type 2) (Chronic) Hyperlipidemia (Chronic) Irritable bowel syndrome (Chronic) Rheumatoid arthritis (Chronic) Osteoarthritis (Chronic) Hypertension (Chronic) Breast cancer metastasized to bone (Inactive) Chronic kidney disease (Inactive) Rheumatoid arthritis (Inactive) Surgical History History of hernia repair (Chronic) Family History Mother Stroke Social History Preferred Language: [place] Communication Ability: Effective Visual Impairment: No Limitations 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: No Beliefs That Will Affect Care: None marital status: Current Living Situation: Spouse Other Information That Helps Us Care for You: No Feels Safe at Home: Yes Safety Concerns: Feels Safe At This Time Smoking Status: Never smoker Second Hand Exposure: No ; Hx Alcohol Use: No Hx Substance Use: No Review of Systems Constitutional: + chills, + fatigue, + anorexia, + weight loss and + insomnia; no fever Eyes: no worsening vision Ear, Nose, Mouth, Throat: + sore throat; no nasal congestion Respiratory: + dyspnea on exertion and + snoring; no cough and no dyspnea Cardiovascular: + edema; no chest pain and no palpitations Gastrointestinal: no abdominal pain, no nausea, no vomiting and no constipation Genitourinary: + dysuria Musculoskeletal: + back pain, + joint pain and + stiffness Integumentary: no rash Neurologic: + tingling and + numbness; no headache(s) and no confusion Endocrine: + fatigue Hematologic / Lymphatic: + easy bruising Physical Exam Physical Exam: General: Alert, oriented. No acute distress, sitting up in chair. Skin: scratch noted on upper abdomen from cat Psych: Appropriate mood and affect Neuro: No gross deficits, CN II-XII grossly intact, some UE weakness. HEENT: NC/AT Chest: Nontender to palpation. CV: RRR, Normal s1, s2. No murmurs appreciated Resp: Breath sounds clear bilaterally but decreased, no increased effort of breathing. No crackles/rhonchi/rales. Abdomen: Soft, nontender. No guarding. Extremities: ++ edema in lower extremities bilaterally. Results & Data Vital Signs (Past 12 Hours) Vital Signs Temp Pulse Resp BP BP Pulse Ox 02/06/19 15:16 36.5 C 68 23 117/70 94 02/06/19 11:59 36.9 C 66 22 145/75 H 94 02/06/19 07:30 36.4 C L 71 22 136/80 91 02/06/19 03:34 36.4 C L 67 24 144/81 H 100 Laboratory Results Laboratory Results - last 24 hr 02/05/19 02/05/19 02/05/19 17:15 17:15 17:15 WBC 5.79 RBC 3.08 L Hgb 7.8 L Hct 27.6 L MCV 89.6 MCH 25.3 MCHC 28.3 L RDW Std Deviation 77.7 H RDW Coeff of Flori 24.5 H Plt Count 25 L* Immature Gran % (Auto) 2.6 Neut % (Auto) 73.7 Lymph % (Auto) 10.0 [place] % (Auto) 6.9 Eos % (Auto) 3.3 Baso % (Auto) 3.5 Immature Gran # (Auto) 0.15 H Neut # (Auto) 4.27 Lymph # (Auto) 0.58 L [place] # (Auto) 0.40 Eos # (Auto) 0.19 Baso # (Auto) 0.20 Absolute Nucleated RBC 1.01 H Nucleated RBC % (auto) 17.5 Platelet Estimate SIGNIFIC DECREASED Giant Platelets Polychromasia 1+ Hypochromasia Present Basophilic Stippling 1+ Anisocytosis Present Tear Drop Cells PT 11.0 INR 1.1 APTT 23.6 PTT Ratio 0.9 Sample Site POC pH POC pCO2 POC pO2 POC HCO3 POC Total CO2 POC Base Excess ABG pH ABG pCO2 ABG pO2 ABG HCO3 POC ABG O2 Sat ABG O2 Saturation ABG Base Excess Robert Test Barometric Pressure Oxygen Given O2 Delivery Device Sodium 141 Potassium 5.0 Chloride 109 H Carbon Dioxide 29 Anion Gap 3.0 BUN 32 H Creatinine 1.32 H Est Cr Clr Drug Dosing Not Reportable Est GFR ( Amer) 49.6 Est GFR (Non-Af Amer) 42.8 BUN/Creatinine Ratio 24.1 H Glucose 125 H POC Glucose Calcium 8.6 Magnesium 1.9 Total Bilirubin 0.5 AST 30 ALT 11 L Alkaline Phosphatase 118 H Ammonia Troponin I 0.016 NT-Pro-B Natriuret Pep 4339 H Total Protein 7.6 Albumin 2.6 L Globulin 5.0 H Albumin/Globulin Ratio 0.5 L Specimen Hemolysis Urine Color Urine Appearance Urine pH Ur Specific Thompson Urine Protein Urine Glucose (UA) Urine Ketones Urine Blood Urine Nitrite Urine Bilirubin Urine Urobilinogen Ur Leukocyte Esterase Urine WBC (Auto) Urine RBC (Auto) U Hyaline Cast (Auto) U Epithel Cells (Auto) Urine Bacteria (Auto) Hepatitis C Ab Screen Influenza Type A (PCR) Influenza Type B (PCR) Blood Type Antibody Screen 02/05/19 02/05/19 02/05/19 19:37 19:37 19:37 WBC RBC Hgb Hct MCV MCH MCHC RDW Std Deviation RDW Coeff of Flori Plt Count Immature Gran % (Auto) Neut % (Auto) Lymph % (Auto) [place] % (Auto) Eos % (Auto) Baso % (Auto) Immature Gran # (Auto) Neut # (Auto) Lymph # (Auto) [place] # (Auto) Eos # (Auto) Baso # (Auto) Absolute Nucleated RBC Nucleated RBC % (auto) Platelet Estimate Giant Platelets Polychromasia Hypochromasia Basophilic Stippling Anisocytosis Tear Drop Cells PT INR APTT PTT Ratio Sample Site POC pH POC pCO2 POC pO2 POC HCO3 POC Total CO2 POC Base Excess ABG pH 7.24 L ABG pCO2 67 H ABG pO2 77 L ABG HCO3 28 H POC ABG O2 Sat ABG O2 Saturation 89.9 L ABG Base Excess 0.3 Robert Test POS Barometric Pressure 737.7 Oxygen Given 4L O2 O2 Delivery Device Sodium Potassium Chloride Carbon Dioxide Anion Gap BUN Creatinine Est Cr Clr Drug Dosing Est GFR ( Amer) Est GFR (Non-Af Amer) BUN/Creatinine Ratio Glucose POC Glucose Calcium Magnesium Total Bilirubin AST ALT Alkaline Phosphatase Ammonia 78.0 H Troponin I NT-Pro-B Natriuret Pep Total Protein Albumin Globulin Albumin/Globulin Ratio Specimen Hemolysis Urine Color Urine Appearance Urine pH Ur Specific Thompson Urine Protein Urine Glucose (UA) Urine Ketones Urine Blood Urine Nitrite Urine Bilirubin Urine Urobilinogen Ur Leukocyte Esterase Urine WBC (Auto) Urine RBC (Auto) U Hyaline Cast (Auto) U Epithel Cells (Auto) Urine Bacteria (Auto) Hepatitis C Ab Screen Influenza Type A (PCR) Influenza Type B (PCR) Blood Type B Positive Antibody Screen NEGATIVE 1002/05/19 02/05/19 20:58 21:05 21:40 WBC RBC Hgb Hct MCV MCH MCHC RDW Std Deviation RDW Coeff of Flori Plt Count Immature Gran % (Auto) Neut % (Auto) Lymph % (Auto) [place] % (Auto) Eos % (Auto) Baso % (Auto) Immature Gran # (Auto) Neut # (Auto) Lymph # (Auto) [place] # (Auto) Eos # (Auto) Baso # (Auto) Absolute Nucleated RBC Nucleated RBC % (auto) Platelet Estimate Giant Platelets Polychromasia Hypochromasia Basophilic Stippling Anisocytosis Tear Drop Cells PT INR APTT PTT Ratio Sample Site POC pH POC pCO2 POC pO2 POC HCO3 POC Total CO2 POC Base Excess ABG pH ABG pCO2 ABG pO2 ABG HCO3 POC ABG O2 Sat ABG O2 Saturation ABG Base Excess Robert Test Barometric Pressure Oxygen Given O2 Delivery Device Sodium Potassium Chloride Carbon Dioxide Anion Gap BUN Creatinine Est Cr Clr Drug Dosing Est GFR ( Amer) Est GFR (Non-Af Amer) BUN/Creatinine Ratio Glucose POC Glucose 112 H Calcium Magnesium Total Bilirubin AST ALT Alkaline Phosphatase Ammonia Troponin I NT-Pro-B Natriuret Pep Total Protein Albumin Globulin Albumin/Globulin Ratio Specimen Hemolysis Urine Color Yellow Urine Appearance Cloudy A Urine pH 5.0 Ur Specific Thompson 1.017 Urine Protein 1+ H Urine Glucose (UA) Negative Urine Ketones Negative Urine Blood Trace H Urine Nitrite Negative Urine Bilirubin Negative Urine Urobilinogen Negative Ur Leukocyte Esterase 1+ H Urine WBC (Auto) >30 H Urine RBC (Auto) 0-4 U Hyaline Cast (Auto) 5-10 H U Epithel Cells (Auto) 10-20 H Urine Bacteria (Auto) 4+ H Hepatitis C Ab Screen Influenza Type A (PCR) Neg for Influ A Influenza Type B (PCR) Neg for Influ B Blood Type Antibody Screen 02/05/19 02/05/19 02/05/19 23:36 23:36 23:55 WBC RBC Hgb Hct MCV MCH MCHC RDW Std Deviation RDW Coeff of Flori Plt Count Immature Gran % (Auto) Neut % (Auto) Lymph % (Auto) [place] % (Auto) Eos % (Auto) Baso % (Auto) Immature Gran # (Auto) Neut # (Auto) Lymph # (Auto) [place] # (Auto) Eos # (Auto) Baso # (Auto) Absolute Nucleated RBC Nucleated RBC % (auto) Platelet Estimate Giant Platelets Polychromasia Hypochromasia Basophilic Stippling Anisocytosis Tear Drop Cells PT INR APTT PTT Ratio Sample Site R Radial POC pH 7.27 L POC pCO2 61 H POC pO2 60 L POC HCO3 28 H POC Total CO2 30 POC Base Excess 1.0 ABG pH ABG pCO2 ABG pO2 ABG HCO3 POC ABG O2 Sat 86.0 L ABG O2 Saturation ABG Base Excess Robert Test Pass Barometric Pressure Oxygen Given O2 Delivery Device Cannula Sodium 144 Potassium 3.9 D Chloride 109 H Carbon Dioxide 30 Anion Gap 5.0 BUN 31 H Creatinine 1.31 H Est Cr Clr Drug Dosing 58.3 Est GFR ( Amer) 50.1 Est GFR (Non-Af Amer) 43.2 BUN/Creatinine Ratio 23.4 H Glucose 157 H POC Glucose Calcium 8.6 Magnesium Total Bilirubin AST ALT Alkaline Phosphatase Ammonia Troponin I NT-Pro-B Natriuret Pep Total Protein Albumin Globulin Albumin/Globulin Ratio Specimen Hemolysis Urine Color Urine Appearance Urine pH Ur Specific [place] Urine Protein Urine Glucose (UA) Urine Ketones Urine Blood Urine Nitrite Urine Bilirubin Urine Urobilinogen Ur Leukocyte Esterase Urine WBC (Auto) Urine RBC (Auto) U Hyaline Cast (Auto) U Epithel Cells (Auto) Urine Bacteria (Auto) Hepatitis C Ab Screen Neg Influenza Type A (PCR) Influenza Type B (PCR) Blood Type Antibody Screen 02/06/19 02/06/19 02/06/19 05:37 05:37 05:37 WBC 4.96 RBC 2.84 L Hgb 7.3 L Hct 25.5 L MCV 89.8 MCH 25.7 MCHC 28.6 L RDW Std Deviation 77.4 H RDW Coeff of Flori 24.3 H Plt Count 19 L* Immature Gran % (Auto) 3.4 Neut % (Auto) 69.8 Lymph % (Auto) 12.5 [place] % (Auto) 8.9 Eos % (Auto) 3.0 Baso % (Auto) 2.4 Immature Gran # (Auto) 0.17 H Neut # (Auto) 3.46 Lymph # (Auto) 0.62 L [place] # (Auto) 0.44 Eos # (Auto) 0.15 Baso # (Auto) 0.12 Absolute Nucleated RBC 0.77 H Nucleated RBC % (auto) 15.5 Platelet Estimate SIGNIFIC DECREASED Giant Platelets 2+ Polychromasia 1+ Hypochromasia Present Basophilic Stippling 1+ Anisocytosis Present Tear Drop Cells 1+ PT INR APTT PTT Ratio Sample Site POC pH POC pCO2 POC pO2 POC HCO3 POC Total CO2 POC Base Excess ABG pH ABG pCO2 ABG pO2 ABG HCO3 POC ABG O2 Sat ABG O2 Saturation ABG Base Excess Robert Test Barometric Pressure Oxygen Given O2 Delivery Device Sodium Potassium Chloride Carbon Dioxide Anion Gap BUN Creatinine Est Cr Clr Drug Dosing Est GFR ( Amer) Est GFR (Non-Af Amer) BUN/Creatinine Ratio Glucose POC Glucose Calcium Magnesium Total Bilirubin AST ALT Alkaline Phosphatase Ammonia 76.0 H Troponin I < 0.015 NT-Pro-B Natriuret Pep Total Protein Albumin Globulin Albumin/Globulin Ratio Specimen Hemolysis Urine Color Urine Appearance Urine pH Ur Specific [place] Urine Protein Urine Glucose (UA) Urine Ketones Urine Blood Urine Nitrite Urine Bilirubin Urine Urobilinogen Ur Leukocyte Esterase Urine WBC (Auto) Urine RBC (Auto) U Hyaline Cast (Auto) U Epithel Cells (Auto) Urine Bacteria (Auto) Hepatitis C Ab Screen Influenza Type A (PCR) Influenza Type B (PCR) Blood Type Antibody Screen 02/06/19 02/06/19 07:26 11:16 WBC RBC Hgb Hct MCV MCH MCHC RDW Std Deviation RDW Coeff of Flori Plt Count Immature Gran % (Auto) Neut % (Auto) Lymph % (Auto) [place] % (Auto) Eos % (Auto) Baso % (Auto) Immature Gran # (Auto) Neut # (Auto) Lymph # (Auto) [place] # (Auto) Eos # (Auto) Baso # (Auto) Absolute Nucleated RBC Nucleated RBC % (auto) Platelet Estimate Giant Platelets Polychromasia Hypochromasia Basophilic Stippling Anisocytosis Tear Drop Cells PT INR APTT PTT Ratio Sample Site POC pH POC pCO2 POC pO2 POC HCO3 POC Total CO2 POC Base Excess ABG pH ABG pCO2 ABG pO2 ABG HCO3 POC ABG O2 Sat ABG O2 Saturation ABG Base Excess Robert Test Barometric Pressure Oxygen Given O2 Delivery Device Sodium Potassium Chloride Carbon Dioxide Anion Gap BUN Creatinine Est Cr Clr Drug Dosing Est GFR ( Amer) Est GFR (Non-Af Amer) BUN/Creatinine Ratio Glucose POC Glucose 149 H 184 H Calcium Magnesium Total Bilirubin AST ALT Alkaline Phosphatase Ammonia Troponin I NT-Pro-B Natriuret Pep Total Protein Albumin Globulin Albumin/Globulin Ratio Specimen Hemolysis Urine Color Urine Appearance Urine pH Ur Specific [place] Urine Protein Urine Glucose (UA) Urine Ketones Urine Blood Urine Nitrite Urine Bilirubin Urine Urobilinogen Ur Leukocyte Esterase Urine WBC (Auto) Urine RBC (Auto) U Hyaline Cast (Auto) U Epithel Cells (Auto) Urine Bacteria (Auto) Hepatitis C Ab Screen Influenza Type A (PCR) Influenza Type B (PCR) Blood Type Antibody Screen Medications Administered Home Medications cholecalciferol (vitamin D3) [Vitamin D3] 2,000 unit PO QAM 03/05/18 [History Confirmed 02/05/19] fexofenadine [Rocio Allergy] 180 mg PO QAM 03/05/18 [History Confirmed 02/05/19] insulin aspart U-100 0 units SUBCUT AC 03/05/18 [History Confirmed 02/05/19] lorazepam 1 mg PO BID PRN 03/05/18 [History Confirmed 02/05/19] Lantus Solostar U-100 Insulin See Rx Instructions .ROUTE .COMPLEX #15 ml 05/16/18 [Rx Confirmed 02/05/19] metoprolol succinate 25 mg PO BID #60 ea 05/16/18 [Rx Confirmed 02/05/19] Eliquis 5 mg PO BID 01/06/19 [History Confirmed 02/05/19] Xgeva 120 mg SUBCUT MONTHLY 01/06/19 [History Confirmed 02/05/19] duloxetine 60 mg PO QAM 01/06/19 [History Confirmed 02/05/19] fulvestrant [Faslodex] 250 mg IM Q14D 01/06/19 [History Confirmed 02/05/19] hydromorphone 2 mg PO Q6H PRN 01/06/19 [History Confirmed 02/05/19] hydroxyzine HCl 25 mg PO BID 01/06/19 [History Confirmed 02/05/19] omeprazole 20 mg PO BID 01/06/19 [History Confirmed 02/05/19] ondansetron HCl 8 mg PO Q8H PRN 01/06/19 [History Confirmed 02/05/19] oxycodone [OxyContin] 10 mg PO Q12H 01/06/19 [History Confirmed 02/05/19] tizanidine 4 mg PO BID PRN 01/06/19 [History Confirmed 02/05/19] topiramate 25 mg PO BID 01/06/19 [History Confirmed 02/05/19] torsemide 20 mg PO DAILY PRN 01/06/19 [History Confirmed 02/05/19] Active Medications Acetaminophen (Tylenol) 650 mg PO Q4H PRN PRN Reason: Pain or Fever Stop: 03/07/19 20:56 Apixaban (Eliquis) 5 mg PO BID [facility] Stop: 03/07/19 21:44 Last Admin: 02/06/19 08:21 Dose: 5 mg Documented by: Dextrose (Dextrose 50%) 25 - 50 ml IV UD PRN; Protocol PRN Reason: Hypoglycemia Protocol Stop: 03/07/19 20:56 Duloxetine HCl (Cymbalta) 60 mg PO QAM [facility] Stop: 03/08/19 08:59 Last Admin: 02/06/19 08:21 Dose: 60 mg Documented by: Fexofenadine HCl (Rocio) 180 mg PO QAM [facility] Stop: 03/08/19 08:59 Last Admin: 02/06/19 08:22 Dose: 180 mg Documented by: Glucagon (Glucagen) 1 mg SQ UD PRN; Protocol PRN Reason: Hypoglycemia Protocol Stop: 03/07/19 20:56 Glucose (Glucose 40%) 15 - 30 gm PO UD PRN; Protocol PRN Reason: Hypoglycemia Protocol Stop: 03/07/19 20:56 Glucose (Dex4 Glucose) 4 - 8 tabs PO UD PRN; Protocol PRN Reason: Hypoglycemia Protocol Stop: 03/07/19 20:56 Guaifenesin (Mucinex) 600 mg PO Q12 [facility] Stop: 03/07/19 21:44 Last Admin: 02/06/19 08:22 Dose: 600 mg Documented by: Hydromorphone HCl (Dilaudid) 2 mg PO Q6H PRN PRN Reason: Pain Stop: 02/19/19 20:56 Hydroxyzine HCl (Vistaril) 25 mg PO BID [facility] Stop: 03/07/19 20:59 Last Admin: 02/06/19 08:21 Dose: 25 mg Documented by: Promethazine HCl 12.5 mg/ (Sodium Chloride) 50.5 mls @ 202 mls/hr IV Q6H PRN PRN Reason: Nausea And Vomiting Stop: 03/07/19 20:56 Ceftriaxone Sodium 2,000 mg/ (Dextrose) 70 mls @ 100 mls/hr IV Q24H [facility]; Protocol Stop: 02/16/19 06:59 Last Infusion: 02/06/19 09:02 Dose: Infused Documented by: Insulin Aspart (Novolog Flexpen) 0 units SC ACHS [facility] Stop: 03/07/19 20:59 Last Admin: 02/06/19 14:44 Dose: Not Given Documented by: Insulin Glargine (Lantus Solostar Pen) 5 units SQ BID [facility] Stop: 03/08/19 08:59 Last Admin: 02/06/19 08:25 Dose: 5 units Documented by: Lactulose (Chronulac) 30 gm PO TID [facility] Stop: 03/08/19 08:59 Last Admin: 02/06/19 14:44 Dose: Not Given Documented by: Lorazepam (Ativan) 1 mg PO BID PRN PRN Reason: Anxiety Stop: 03/07/19 20:56 Last Admin: 02/05/19 22:49 Dose: 1 mg Documented by: Metoprolol Succinate (Toprol Xl) 25 mg PO BID [facility] Stop: 03/07/19 21:44 Last Admin: 02/06/19 08:22 Dose: 25 mg Documented by: Miscellaneous (Carbohydrates For Hypoglycemia) 15 - 30 gm PO UD PRN PRN Reason: Hypoglycemia Treatment Stop: 03/07/19 20:56 Nitroglycerin (Nitrostat) 0.4 mg SL UD PRN PRN Reason: Chest Pain Stop: 03/07/19 20:56 Oxycodone HCl (Oxycontin) 10 mg PO Q12 [facility] Stop: 02/19/19 21:29 Last Admin: 02/06/19 08:24 Dose: 10 mg Documented by: Pantoprazole Sodium (Protonix) 40 mg PO BID [facility]; Protocol Stop: 03/07/19 21:44 Last Admin: 02/06/19 08:21 Dose: 40 mg Documented by: Topiramate (Topamax) 25 mg PO BID [facility] Stop: 03/07/19 21:44 Last Admin: 02/06/19 08:22 Dose: 25 mg Documented by: PG Care Time/CCT Total # of Minutes Spent Total Time Spent with Patient: Total time spent is greater than 50% in coordination of care (as documented) at patient's floor/unit and/or counseling patient: Resident Activity Tracking Resident Involvement: Resident Care Provided Care Provided: Adult Hospital Medicine
--- NOTE | 2019-02-06 16:34 | Hospitalist Progress Note ---
Date of Service February 06, 2019 Assessment & Plan (1) Encephalopathy: Metabolic encephalopathy Likely multifactorial--hypercapnia/Hypoxia, hyperammonemia, rule out UTI Mental status improved Hold narcotic medications for exacerbation Acute respiratory failure with hypoxia, hypercapnia Acute on chronic respiratory acidosis Likely muti-factorial: Acute Diastolic heart failure, pulmonary hypertension, likely has sleep apnea, OHS --CXR:Cardiomegaly with mild volume overload. No advanced congestive change or pulmonary edema. Chronically low lung volume on the right with elevated right hemidiaphragm. Possible trace right pleural effusion or chronic change. This is similar to prior exam. Chronic bilateral rib fractures. -Given IV diuretics -Monitor volume status -Appreciate pulmonology, cardiology input -Supplemental oxygen as needed -Use BIPAP/CPAP QHS if patient tolerates -Needs outpatient sleep study Complicated UTI Possible sepsis Urine Culture:Pending Continue Ceftriaxone Patient denies dysuria Hyperammonemia DD: Cirrhosis, Secondary to Topomax, ? due to Rituxan therapy Continue lactulose LFTs within normal limits Appreciate GI Input Patient currently not interested in further evaluation for possible liver disease Hypertension Stable Continue Metoprolol DM II Hb A1C: 9.2 Dec 2018 Continue ISS, Glargine Monitor BGs Metastatic breast cancer: Anemia of chronic disease Thrombocytopenia, H/O ITP Ongoing chemotherapy No active bleeding Transfuse PRBC, platelets as needed Discussed with oncology Dr. Light today LDH, reticulocyte count, anemia work-up ordered H/O DVT: On Eliquis CKD III Baseline creatinine ~ 1.2-1.3 Creatinine at baseline Renal function Avoid nephrotoxic agents as able DVT Px: On Eliquis Code Status Full code Disposition PT/OT prior to discharge Subjective Patient is seen and examined at bedside More alert, awake this morning Reports diarrhea secondary to lactulose States shortness of breath is better Denies any chest pain, nausea, abdominal pain, dizziness, dysuria Offers no other complaints Review of Systems Review of Systems: All systems reviewed & are unremarkable except as noted in HPI & below Physical Exam Physical Exam: Physical Exam: Vitals signs as noted above General Appearance:Obese, no apparent distress Head: normocephalic, Atraumatic Eyes: normal inspection, EOMI Neck: supple, Trachea midline Respiratory/Chest: Normal breath sounds, CTA Cardiovascular: S1, S2, No murmur Abdomen/GI:Soft, Non tender, Bowel sounds present Extremities/Musculoskelatal:normal inspection, B/L LE edema Neurologic/Psych:AAOX3, grossly no focal neurological deficits Skin: normal color, warm Results & Data Vital Signs (Past 12 Hours) Vital Signs Temp Pulse Resp BP BP Pulse Ox 02/06/19 15:16 36.5 C 68 23 117/70 94 02/06/19 11:59 36.9 C 66 22 145/75 H 94 02/06/19 07:30 36.4 C L 71 22 136/80 91 Laboratory Results Short CBC 02/05/19 02/06/19 Range/Units 17:15 05:37 WBC 5.79 4.96 (4.8-10.8) K/uL Hgb 7.8 L 7.3 L (12.0-16.0) g/dL Hct 27.6 L 25.5 L (37-47) % Plt Count 25 L* 19 L* (130-400) K/uL BMP 02/05/19 02/05/19 17:15 23:36 Sodium 141 144 Potassium 5.0 3.9 D Chloride 109 H 109 H Carbon Dioxide 29 30 BUN 32 H 31 H Creatinine 1.32 H 1.31 H Glucose 125 H 157 H Calcium 8.6 8.6 Cardiac Enzymes 02/05/19 02/06/19 Range/Units 17:15 05:37 Troponin I 0.016 < 0.015 (0-0.045) ng/ml Liver Function 02/05/19 Range/Units 17:15 Total Bilirubin 0.5 (0.2-1) mg/dl AST 30 (15-37) U/L ALT 11 L (12-78) U/L Alkaline Phosphatase 118 H (45-117) U/L Albumin 2.6 L (3.4-5.0) gm/dl Urine 02/05/19 Range/Units 21:40 Urine Color Yellow Urine Appearance Cloudy A (Clear) Urine pH 5.0 (4.5-7.5) Ur Specific [place] 1.017 (1.000-1.030) Urine Protein 1+ H (Negative) Urine Glucose (UA) Negative (Negative)
[2019-02-06] MEDS: LORazepam 1 MG TAB PO PRN (21:19)
[2019-02-07] MEDS ORDERED: CALCIUM CARBONATE 500 MG CHEWABLE TAB PO PRN (02:05)
[2019-02-07 07:33] LABS: BUN Creatinine Ratio 25.1 (10-20); Calcium 8.5 mg/dl (8.5-10.1); Creatinine Clr Calc Pharmacy 53.1 ml/min; Est GFR (African American) 45.1; Est GFR (Non-African American) 38.9; Potassium 4.4 mmol/L (3.5-5.1)
[2019-02-07 07:37] LABS: Ferritin 338.6 ng/ml (8-388)
[2019-02-07 07:46] LABS: Hematocrit (blood only) 26.3 % (37-47); Hemoglobin 7.5 g/dL (12.0-16.0); Mean Corpuscular Hemoglobin 25.7 pg (25-34); Mean Corpuscular Hgb Conc 28.5 g/dL (32-36); Mean Corpuscular Volume 90.1 fL (80-100); Nucleated RBC # (auto) 0.58 K/uL (0-0); Nucleated RBC % (auto) 11.6 %; Platelet Count 23 K/uL (130-400); RDW Coefficient of Variation 23.8 % (11.5-14.5); RDW Standard Deviation 76.1 fL (36.4-46.3); Red Blood Count 2.92 M/uL (4.2-5.4); White Blood Count 5.01 K/uL (4.8-10.8)
[2019-02-07 07:47] LABS: Platelet Estimate SIGNIFIC DECREASED (Normal); Reticulocyte % 4.9 % (0.5-2.0); Reticulocytes # 0.14 10^6/uL (0.02-0.10)
[2019-02-07 08:22] LABS: Folate (Folic Acid) 6.75 ng/ml (>5.38)
[2019-02-07] MEDS: FEXOFENADINE HCL 180 MG TAB PO SCH (08:33)
[2019-02-07] MEDS: cefTRIAXone SODIUM 2,000 MG in DEXTROSE 5% 50 ML IV SCH (08:33)
[2019-02-07] MEDS: PANTOprazole 40 MG TAB PO SCH ×2 (08:33→21:15)
[2019-02-07] MEDS: OXYCODONE HCL 10 MG TABCR (OXYCONTIN) PO SCH ×2 (08:33→21:15)
[2019-02-07] MEDS: METOPROLOL SUCC 25MG EXT REL TAB PO SCH ×2 (08:33→21:15)
[2019-02-07] MEDS: LACTULOSE SYRUP 30 GM/45 ML UDP PO SCH ×3 (08:34→21:14)
[2019-02-07] MEDS: TOPIRAMATE 25 MG TAB PO SCH ×2 (08:34→21:17)
[2019-02-07] MEDS: DULOXETINE HCL 60 MG CAP PO SCH (08:34)
[2019-02-07] MEDS: guaiFENesin 600 MG TABCR PO SCH ×2 (08:34→21:15)
[2019-02-07] MEDS: APIXABAN 5 MG TABLET PO SCH ×2 (08:34→21:14)
[2019-02-07] MEDS: INSULIN ASPART 100 UNITS/ML 3 ML PEN SC SCH ×4 (08:38→21:18)
[2019-02-07] MEDS: INSULIN GLARGINE SOLOSTAR 100 UNITS/ML 3 ML PEN SQ SCH ×2 (08:45→21:18)
--- NOTE | 2019-02-07 13:57 | Cardiology Progress Note ---
Date of Service February 07, 2019 Assessment & Plan (1) Respiratory failure with hypoxia and hypercapnia: (2) Hypoxia: (3) Thrombocytopenia: (4) AMS (altered mental status): (5) Anemia: (6) TYE (obstructive sleep apnea): (7) Obesity hypoventilation syndrome: (8) Metastatic breast cancer: The patient is comfortable and stable. On telemetry her rhythm is stable. From a cardiac standpoint I do not believe any additional cardiac testing is indicated. Subjective The patient is sleeping comfortably in a chair. Her is there today and I answered all questions. Review of Systems Review of Systems: Unobtainable due to cognitive status Physical Exam Physical Exam: General: no acute distress and stated age Head: normocephalic, no masses, lesions, tenderness or abnormalities Eyes: conjunctiva are pink and non-injected, sclera clear Neck: supple, no adenopathy, no bruits, normal jugular venous pulse, no hepatojugular reflux Chest: normal shape and normal respiratory effort Lungs: clear to auscultation and percussion Cardiac Exam: - regular rate & rhythm, no murmurs gallops or rubs - normal S1, normal S2 Pulses: 2(+) throughout Abdomen: abdomen soft, non-tender, no abnormal masses and no hepatosplenomegaly Musculoskeletal: no gait disturbance, no joint inflammation, no deforming arthritis Extremities: no edema and no cyanosis Neuro: grossly normal exam Results & Data Vital Signs (Past 12 Hours) Vital Signs Temp Pulse Pulse Resp BP BP Pulse Ox 02/07/19 11:38 36.5 C 64 20 117/68 90 02/07/19 08:00 56 L 02/07/19 07:37 36.4 C L 67 18 108/61 96 02/07/19 05:05 36.4 C L 56 L 18 109/62 96 Laboratory Results Laboratory Results - last 24 hr 02/06/19 02/06/19 02/06/19 11:16 16:41 21:13 WBC RBC Hgb Hct MCV MCH MCHC RDW Std Deviation RDW Coeff of Flori Plt Count Reticulocyte % (Auto) Reticulocyte # Absolute Nucleated RBC Nucleated RBC % (auto) Platelet Estimate Sodium Potassium Chloride Carbon Dioxide Anion Gap BUN Creatinine Est Cr Clr Drug Dosing Est GFR ( Amer) Est GFR (Non-Af Amer) BUN/Creatinine Ratio Glucose POC Glucose 184 H 155 H 145 H Calcium Iron Ferritin Ammonia Lactate Dehydrogenase Vitamin B12 Folate 02/07/19 02/07/19 02/07/19 07:06 07:06 07:06 WBC 5.01 RBC 2.92 L Hgb 7.5 L Hct 26.3 L MCV 90.1 MCH 25.7 MCHC 28.5 L RDW Std Deviation 76.1 H RDW Coeff of Flori 23.8 H Plt Count 23 L* Reticulocyte % (Auto) 4.9 H Reticulocyte # 0.14 H Absolute Nucleated RBC 0.58 H Nucleated RBC % (auto) 11.6 Platelet Estimate SIGNIFIC DECREASED Sodium 142 Potassium 4.4 Chloride 107 Carbon Dioxide 33 H Anion Gap 2.0 L BUN 36 H Creatinine 1.43 H Est Cr Clr Drug Dosing 53.1 Est GFR ( Amer) 45.1 Est GFR (Non-Af Amer) 38.9 BUN/Creatinine Ratio 25.1 H Glucose 139 H POC Glucose Calcium 8.5 Iron 77 Ferritin 338.6 Ammonia Lactate Dehydrogenase 443 H Vitamin B12 Folate 02/07/19 02/07/19 02/07/19 07:06 07:06 07:40 WBC RBC Hgb Hct MCV MCH MCHC RDW Std Deviation RDW Coeff of Flori Plt Count Reticulocyte % (Auto) Reticulocyte # Absolute Nucleated RBC Nucleated RBC % (auto) Platelet Estimate Sodium Potassium Chloride Carbon Dioxide Anion Gap BUN Creatinine Est Cr Clr Drug Dosing Est GFR ( Amer) Est GFR (Non-Af Amer) BUN/Creatinine Ratio Glucose POC Glucose 146 H Calcium Iron Ferritin Ammonia 50.0 H Lactate Dehydrogenase Vitamin B12 817 Folate 6.75 02/07/19 11:25 WBC RBC Hgb Hct MCV MCH MCHC RDW Std Deviation RDW Coeff of Flori Plt Count Reticulocyte % (Auto) Reticulocyte # Absolute Nucleated RBC Nucleated RBC % (auto) Platelet Estimate Sodium Potassium Chloride Carbon Dioxide Anion Gap BUN Creatinine Est Cr Clr Drug Dosing Est GFR ( Amer) Est GFR (Non-Af Amer) BUN/Creatinine Ratio Glucose POC Glucose 170 H Calcium Iron Ferritin Ammonia Lactate Dehydrogenase Vitamin B12 Folate Medications Administered Current Inpatient Medications Acetaminophen (Tylenol) 650 mg PO Q4H PRN PRN Reason: Pain or Fever Stop: 03/07/19 20:56 Apixaban (Eliquis) 5 mg PO BID [facility] Stop: 03/07/19 21:44 Last Admin: 02/07/19 08:34 Dose: 5 mg Documented by: Calcium Carbonate (Tums) 500 mg PO Q6H PRN PRN Reason: Heartburn Stop: 03/09/19 02:04 Last Admin: 02/07/19 02:11 Dose: 500 mg Documented by: Dextrose (Dextrose 50%) 25 - 50 ml IV UD PRN; Protocol PRN Reason: Hypoglycemia Protocol Stop: 03/07/19 20:56 Duloxetine HCl (Cymbalta) 60 mg PO QAM [facility] Stop: 03/08/19 08:59 Last Admin: 02/07/19 08:34 Dose: 60 mg Documented by: Fexofenadine HCl (Rocio) 180 mg PO QAM [facility] Stop: 03/08/19 08:59 Last Admin: 02/07/19 08:33 Dose: 180 mg Documented by: Glucagon (Glucagen) 1 mg SQ UD PRN; Protocol PRN Reason: Hypoglycemia Protocol Stop: 03/07/19 20:56 Glucose (Glucose 40%) 15 - 30 gm PO UD PRN; Protocol PRN Reason: Hypoglycemia Protocol Stop: 03/07/19 20:56 Glucose (Dex4 Glucose) 4 - 8 tabs PO UD PRN; Protocol PRN Reason: Hypoglycemia Protocol Stop: 03/07/19 20:56 Guaifenesin (Mucinex) 600 mg PO Q12 [facility] Stop: 03/07/19 21:44 Last Admin: 02/07/19 08:34 Dose: 600 mg Documented by: Hydromorphone HCl (Dilaudid) 2 mg PO Q6H PRN PRN Reason: Pain Stop: 02/19/19 20:56 Hydroxyzine HCl (Vistaril) 25 mg PO BID [facility] Stop: 03/07/19 20:59 Last Admin: 02/07/19 08:34 Dose: 25 mg Documented by: Promethazine HCl 12.5 mg/ (Sodium Chloride) 50.5 mls @ 202 mls/hr IV Q6H PRN PRN Reason: Nausea And Vomiting Stop: 03/07/19 20:56 Ceftriaxone Sodium 2,000 mg/ (Dextrose) 70 mls @ 100 mls/hr IV Q24H [facility]; Protocol Stop: 02/16/19 06:59 Last Infusion: 02/07/19 09:45 Dose: Infused Documented by: Insulin Aspart (Novolog Flexpen) 0 units SC ACHS [facility] Stop: 03/07/19 20:59 Last Admin: 02/07/19 12:12 Dose: 4 units Documented by: Insulin Glargine (Lantus Solostar Pen) 5 units SQ BID [facility] Stop: 03/08/19 08:59 Last Admin: 02/07/19 08:45 Dose: 5 units Documented by: Lactulose (Chronulac) 30 gm PO TID [facility] Stop: 03/08/19 08:59 Last Admin: 02/07/19 13:27 Dose: Not Given Documented by: Lorazepam (Ativan) 1 mg PO BID PRN PRN Reason: Anxiety Stop: 03/07/19 20:56 Last Admin: 02/06/19 21:19 Dose: 1 mg Documented by: Metoprolol Succinate (Toprol Xl) 25 mg PO BID [facility] Stop: 03/07/19 21:44 Last Admin: 02/07/19 08:33 Dose: 25 mg Documented by: Miscellaneous (Carbohydrates For Hypoglycemia) 15 - 30 gm PO UD PRN PRN Reason: Hypoglycemia Treatment Stop: 03/07/19 20:56 Nitroglycerin (Nitrostat) 0.4 mg SL UD PRN PRN Reason: Chest Pain Stop: 03/07/19 20:56 Oxycodone HCl (Oxycontin) 10 mg PO Q12 [facility] Stop: 02/19/19 21:29 Last Admin: 02/07/19 08:33 Dose: 10 mg Documented by: Pantoprazole Sodium (Protonix) 40 mg PO BID [facility]; Protocol Stop: 03/07/19 21:44 Last Admin: 02/07/19 08:33 Dose: 40 mg Documented by: Topiramate (Topamax) 25 mg PO BID [facility] Stop: 03/07/19 21:44 Last Admin: 02/07/19 08:34 Dose: 25 mg Documented by: (1) AMS (altered mental status) Altered mental status type: unspecified Qualified Code(s): R41.82 - Altered mental status, unspecified (2) Anemia Anemia type: unspecified type Qualified Code(s): D64.9 - Anemia, unspecified
--- NOTE | 2019-02-07 17:10 | Hospitalist Progress Note ---
Date of Service February 07, 2019 Assessment & Plan (1) Encephalopathy: Metabolic encephalopathy Likely multifactorial--hypercapnia/Hypoxia, hyperammonemia, rule out UTI Hold narcotic medications for excess sedation Mental status seems to be back to baseline Acute respiratory failure with hypoxia, hypercapnia Acute on chronic respiratory acidosis Likely muti-factorial: Acute Diastolic heart failure, pulmonary hypertension, likely has sleep apnea, OHS --CXR:Cardiomegaly with mild volume overload. No advanced congestive change or pulmonary edema. Chronically low lung volume on the right with elevated right hemidiaphragm. Possible trace right pleural effusion or chronic change. This is similar to prior exam. Chronic bilateral rib fractures. -Received IV diuretics -Monitor volume status -Appreciate pulmonology, cardiology input -Supplemental oxygen as needed -Use BIPAP/CPAP QHS if patient tolerates -Resume home p.o. diuretics -Needs outpatient sleep study -Appreciate cardiology input Complicated UTI Possible sepsis Urine Culture: E. coli, sensitivities pending Continue Ceftriaxone Patient denies dysuria Hyperammonemia DD: Cirrhosis, Secondary to Topomax, ? due to Rituxan therapy Continue lactulose LFTs within normal limits Appreciate GI Input Patient currently not interested in further evaluation for possible liver disease Ammonia levels trending down Hypertension Stable Continue Metoprolol DM II Hb A1C: 9.2 Dec 2018 Continue ISS, Glargine Monitor BGs Metastatic breast cancer: Anemia of chronic disease Thrombocytopenia, H/O ITP Ongoing chemotherapy No active bleeding Transfuse PRBC, platelets as needed Discussed with oncology Dr. Light LDH, reticulocyte count mildly elevated Normal folate, vitamin B levels No transfusion or steroids needed currently as per oncology H/O DVT: On Eliquis CKD III Baseline creatinine ~ 1.2-1.3 Creatinine at baseline Renal function Avoid nephrotoxic agents as able DVT Px: On Eliquis Code Status Full code Disposition PT/OT prior to discharge Subjective Patient is seen and examined at bedside Mental status seems to be back to baseline Offers no new complaints today Ammonia levels trending down Discussed with oncology Dr. Light today Denies any chest pain, SOB, nausea, abdominal pain, dizziness, dysuria Review of Systems Review of Systems: All systems reviewed & are unremarkable except as noted in HPI & below Physical Exam Physical Exam: Physical Exam: Vitals signs as noted above General Appearance:Obese, no apparent distress Head: normocephalic, Atraumatic Eyes: normal inspection, EOMI Neck: supple, Trachea midline Respiratory/Chest: Normal breath sounds, CTA Cardiovascular: S1, S2, No murmur Abdomen/GI:Soft, Non tender, Bowel sounds present Extremities/Musculoskelatal:normal inspection, B/L LE edema Neurologic/Psych:AAOX3, grossly no focal neurological deficits Skin: normal color, warm Results & Data Vital Signs (Past 12 Hours) Vital Signs Temp Pulse Pulse Resp BP Pulse Ox 02/07/19 16:00 36.3 C L 60 20 119/77 96 02/07/19 11:38 36.5 C 64 20 117/68 90 02/07/19 08:00 56 L 02/07/19 07:37 36.4 C L 67 18 108/61 96 Laboratory Results Short CBC 02/07/19 Range/Units 07:06 WBC 5.01 (4.8-10.8) K/uL Hgb 7.5 L (12.0-16.0) g/dL Hct 26.3 L (37-47) % Plt Count 23 L* (130-400) K/uL BMP 02/07/19 07:06 Sodium 142 Potassium 4.4 Chloride 107 Carbon Dioxide 33 H BUN 36 H Creatinine 1.43 H Glucose 139 H Calcium 8.5
[2019-02-07] MEDS: LORazepam 1 MG TAB PO PRN (21:15)
[2019-02-08 07:22] LABS: Hematocrit (blood only) 27.1 % (37-47); Hemoglobin 7.8 g/dL (12.0-16.0); Mean Corpuscular Hemoglobin 25.6 pg (25-34); Mean Corpuscular Hgb Conc 28.8 g/dL (32-36); Mean Corpuscular Volume 88.9 fL (80-100); Nucleated RBC # (auto) 0.82 K/uL (0-0); Platelet Count 25 K/uL (130-400); Platelet Estimate Decreased (Normal); RDW Coefficient of Variation 23.5 % (11.5-14.5); RDW Standard Deviation 74.8 fL (36.4-46.3); Red Blood Count 3.05 M/uL (4.2-5.4); White Blood Count 5.11 K/uL (4.8-10.8)
[2019-02-08 07:24] LABS: Calcium 8.5 mg/dl (8.5-10.1); Creatinine Clr Calc Pharmacy 54.6 ml/min; Est GFR (African American) 46.6; Est GFR (Non-African American) 40.2; Potassium 4.3 mmol/L (3.5-5.1)
[2019-02-08] MEDS: FEXOFENADINE HCL 180 MG TAB PO SCH (08:22)
[2019-02-08] MEDS: guaiFENesin 600 MG TABCR PO SCH ×2 (08:23→21:06)
[2019-02-08] MEDS: DULOXETINE HCL 60 MG CAP PO SCH (08:23)
[2019-02-08] MEDS: LACTULOSE SYRUP 30 GM/45 ML UDP PO SCH ×3 (08:23→21:03)
[2019-02-08] MEDS: APIXABAN 5 MG TABLET PO SCH (08:23)
[2019-02-08] MEDS: METOPROLOL SUCC 25MG EXT REL TAB PO SCH ×2 (08:23→21:04)
[2019-02-08] MEDS: TOPIRAMATE 25 MG TAB PO SCH ×2 (08:24→21:04)
[2019-02-08] MEDS: TORSEMIDE 10 MG TAB PO SCH (08:24)
[2019-02-08] MEDS: PANTOprazole 40 MG TAB PO SCH ×2 (08:24→21:05)
[2019-02-08] MEDS: INSULIN GLARGINE SOLOSTAR 100 UNITS/ML 3 ML PEN SQ SCH ×2 (08:25→21:06)
[2019-02-08] MEDS: INSULIN ASPART 100 UNITS/ML 3 ML PEN SC SCH ×4 (08:27→21:07)
[2019-02-08] MEDS: cefTRIAXone SODIUM 2,000 MG in DEXTROSE 5% 50 ML IV SCH (08:30)
[2019-02-08] MEDS: OXYCODONE HCL 10 MG TABCR (OXYCONTIN) PO SCH ×2 (08:30→21:03)
--- NOTE | 2019-02-08 17:05 | Hospitalist Progress Note ---
Date of Service February 08, 2019 Assessment & Plan (1) Encephalopathy: Metabolic encephalopathy Likely multifactorial--hypercapnia/Hypoxia, hyperammonemia, rule out UTI Hold narcotic medications for excess sedation Mental status seems to be back to baseline We will check nocturnal oximetry to assess oxygen requirement Needs 2 step prior to discharge Acute respiratory failure with hypoxia, hypercapnia Acute on chronic respiratory acidosis Likely muti-factorial: Acute Diastolic heart failure, pulmonary hypertension, likely has sleep apnea, OHS --CXR:Cardiomegaly with mild volume overload. No advanced congestive change or pulmonary edema. Chronically low lung volume on the right with elevated right hemidiaphragm. Possible trace right pleural effusion or chronic change. This is similar to prior exam. Chronic bilateral rib fractures. -Received IV diuretics -Monitor volume status -Appreciate pulmonology, cardiology input -Supplemental oxygen as needed -Use BIPAP/CPAP QHS if patient tolerates -Resumed home p.o. diuretics -Needs outpatient sleep study -Appreciate cardiology input Complicated UTI Possible sepsis Urine Culture: Pansensitive E. coli Continue Ceftriaxone Patient denies dysuria Hyperammonemia DD: Cirrhosis, Secondary to Topomax, ? due to Rituxan therapy Continue lactulose LFTs within normal limits Appreciate GI Input Patient currently not interested in further evaluation for possible liver disease Ammonia levels trending down Recheck ammonia levels in a.m. Hypertension Stable Continue Metoprolol DM II Hb A1C: 9.2 Dec 2018 Continue ISS, Glargine Monitor BGs Metastatic breast cancer: Anemia of chronic disease Thrombocytopenia, H/O ITP Ongoing chemotherapy No active bleeding Transfuse PRBC, platelets as needed Discussed with oncology Dr. Light LDH, reticulocyte count mildly elevated Normal folate, vitamin B levels No transfusion or steroids needed currently as per oncology Monitor CBC H/O DVT: On Eliquis CKD III Baseline creatinine ~ 1.2-1.3 Creatinine at baseline Renal function Avoid nephrotoxic agents as able DVT Px: On Eliquis Code Status Full code Disposition PT/OT prior to discharge Subjective Patient is seen and examined at bedside " I feel Raspy" No confusion today Denies any chest pain, SOB, nausea, abdominal pain, dizziness, dysuria States sleeping better while hospitalized when compared at home due to unclear reasons Review of Systems Review of Systems: All systems reviewed & are unremarkable except as noted in HPI & below Physical Exam Physical Exam: Physical Exam: Vitals signs as noted above General Appearance:Obese, no apparent distress Head: normocephalic, Atraumatic Eyes: normal inspection, EOMI Neck: supple, Trachea midline Respiratory/Chest: Normal breath sounds, CTA Cardiovascular: S1, S2, No murmur Abdomen/GI:Soft, Non tender, Bowel sounds present Extremities/Musculoskelatal:normal inspection, B/L LE edema Neurologic/Psych:AAOX3, grossly no focal neurological deficits Skin: normal color, warm Results & Data Vital Signs (Past 12 Hours) Vital Signs Temp Pulse Resp BP BP Pulse Ox 02/08/19 15:25 36.7 C 63 20 109/70 96 02/08/19 11:43 36.7 C 95 H 20 117/64 92 02/08/19 07:54 36.6 C 68 20 106/63 91 Laboratory Results Short CBC 02/08/19 Range/Units 06:16 WBC 5.11 (4.8-10.8) K/uL Hgb 7.8 L (12.0-16.0) g/dL Hct 27.1 L (37-47) % Plt Count 25 L* (130-400) K/uL BMP 02/08/19 06:16 Sodium 142 Potassium 4.3 Chloride 106 Carbon Dioxide 31 BUN 35 H Creatinine 1.39 H Glucose 125 H Calcium 8.5
[2019-02-08] MEDS: APIXABAN 2.5 MG TAB PO SCH (21:03)
[2019-02-09] MEDS: cefTRIAXone SODIUM 2,000 MG in DEXTROSE 5% 50 ML IV SCH (06:21)
[2019-02-09 07:45] LABS: Hemoglobin 7.5 g/dL (12.0-16.0); Mean Corpuscular Hemoglobin 25.6 pg (25-34); Mean Corpuscular Hgb Conc 28.8 g/dL (32-36); Mean Corpuscular Volume 88.7 fL (80-100); Nucleated RBC # (auto) 1.21 K/uL (0-0); Nucleated RBC % (auto) 18.2 %; Platelet Count 28 K/uL (130-400); RDW Coefficient of Variation 23.2 % (11.5-14.5); RDW Standard Deviation 73.5 fL (36.4-46.3); Red Blood Count 2.93 M/uL (4.2-5.4); White Blood Count 6.67 K/uL (4.8-10.8)
[2019-02-09 07:47] LABS: Platelet Estimate SIGNIFIC DECREASED (Normal)
[2019-02-09] MEDS: INSULIN ASPART 100 UNITS/ML 3 ML PEN SC SCH ×4 (07:51→20:27)
[2019-02-09] MEDS: FEXOFENADINE HCL 180 MG TAB PO SCH (07:52)
[2019-02-09] MEDS: TOPIRAMATE 25 MG TAB PO SCH ×2 (07:52→20:26)
[2019-02-09] MEDS: INSULIN GLARGINE SOLOSTAR 100 UNITS/ML 3 ML PEN SQ SCH ×2 (07:52→20:26)
[2019-02-09] MEDS: guaiFENesin 600 MG TABCR PO SCH ×2 (07:52→20:27)
[2019-02-09] MEDS: PANTOprazole 40 MG TAB PO SCH ×2 (07:53→20:27)
[2019-02-09] MEDS: DULOXETINE HCL 60 MG CAP PO SCH (07:53)
[2019-02-09] MEDS: METOPROLOL SUCC 25MG EXT REL TAB PO SCH ×2 (07:53→20:26)
[2019-02-09] MEDS: TORSEMIDE 10 MG TAB PO SCH (07:53)
[2019-02-09] MEDS: APIXABAN 2.5 MG TAB PO SCH (07:53)
[2019-02-09] MEDS: OXYCODONE HCL 10 MG TABCR (OXYCONTIN) PO SCH ×2 (07:55→20:26)
[2019-02-09] MEDS: LACTULOSE SYRUP 30 GM/45 ML UDP PO SCH ×3 (07:56→20:25)
--- NOTE | 2019-02-09 11:02 | Pulmonology Progress Note ---
Date of Service February 09, 2019 Assessment & Plan (1) Acute on chronic respiratory failure with hypoxia and hypercapnia: Multifactorial which includes underlying TYE/ OHS undiagnosed and patient on Chronic opioides for her metastatic breast Ca Patient doing better after using BiPAP. Although the patient is not compliant with BiPAP. The reason she gives that she is claustrophobic. She is willing to use BiPAP when I explained the importance of using it. Looking at the bicarb of 31 and arterial PaCO2 of 61 patient likely has TYE with a component of OHS, patient's BMI is 42. Patient needs outpatient sleep study. Patient is on home O2. Keep O2 saturation between 88 to 92%. Needs to lose weight with diet and exercise. Importance of doing it expanded the patient. No further recommendations from pulmonary perspective. Needs sleep study as an outpatient set up as soon as possible. Pulmonary follow-up. Recall if needed. Present on Admission?: Yes (2) Pulmonary hypertension: Type II - III with underlying diastolic CHF Diuresis as tolerated. (3) Obesity hypoventilation syndrome: Treatment as above (4) TYE (obstructive sleep apnea): Treatment as above (5) Encephalopathy: Resolved Present on Admission?: Yes (6) Thrombocytopenia: Patient has history of chronic ITP on rituximab (7) Metastatic breast cancer: (8) History of DVT (deep vein thrombosis): History of chronic DVT on apixaban Subjective Patient seen and examined at bedside. No acute distress, no adverse events overnight. Patient is awake alert oriented x3. Answering all the questions appropriately. Denies any shortness of breath, no chest pain, no cough, no headache, no nausea or vomiting. Tolerating diet. Patient has not been using BiPAP overnight. Was saturating 97% on 2 L nasal cannula at rest. Went down to 1 L. Maintain O2 saturation between 90 to 92%. Importance of using BiPAP whenever she is asleep explained to the patient. Review of Systems Review of Systems: All systems reviewed & are unremarkable except as noted in HPI & below Physical Exam Physical Exam: Constitutional: No acute distress HEENT: EOMI, PERRLA Respiratory system: Minimally decreased air entry bilaterally, mild crackles lower lobes, no wheeze, no rhonchi CVS: S1-S2 positive, no murmurs or gallops, Accentuated P2 Abdomen: Soft, nontender, nondistended, positive bowel sounds x4, Obese Extremities: +2 pulses bilaterally radialis/ dorsalis pedis, +1 pitting bilater al lower extremity edema, no cyanosis Neuro: Awake alert oriented x3 Psych: Normal mood and affect ENMT: Mallampati Class: IV Lymphatic: no cervical or axillary lymphadenopathy Results & Data Vital Signs (Past 12 Hours) Vital Signs Temp Pulse Pulse Resp BP BP Pulse Ox 02/09/19 07:46 36.8 C 57 L 20 114/69 99 02/09/19 05:15 55 L 02/09/19 04:35 36.5 C 58 L 20 107/61 95 02/08/19 23:46 36.6 C 57 L 18 119/76 96 Pulse Ox 02/09/19 07:46 02/09/19 05:15 98 02/09/19 04:35 02/08/19 23:46 Laboratory Results 02/09/19 07:13 02/08/19 06:16 PG Care Time/CCT Total # of Minutes Spent Total Time Spent with Patient: Total time spent is greater than 50% in coordination of care (as documented) at patient's floor/unit and/or counseling patient:
--- NOTE | 2019-02-09 17:50 | Hospitalist Progress Note ---
Date of Service February 09, 2019 Assessment & Plan (1) Encephalopathy: Metabolic encephalopathy--Resolved Likely multifactorial--hypercapnia/Hypoxia, hyperammonemia, UTI Hold narcotic medications for excess sedation Mental status seems to be back to baseline On Home O2L 2 liters at bedtime Nocturnal oximetry on 2 liters: No desaturation Titrate oxygen to keep sats between 88 to 92% Needs outpatient sleep study Continue BiPAP if patient tolerates (As patient is claustrophobic) Acute respiratory failure with hypoxia, hypercapnia Acute on chronic respiratory acidosis Likely muti-factorial: Acute Diastolic heart failure, pulmonary hypertension, likely has sleep apnea, OHS --CXR:Cardiomegaly with mild volume overload. No advanced congestive change or pulmonary edema. Chronically low lung volume on the right with elevated right hemidiaphragm. Possible trace right pleural effusion or chronic change. This is similar to prior exam. Chronic bilateral rib fractures. -Received IV diuretics -Monitor volume status -Appreciate pulmonology, cardiology input -Supplemental oxygen as needed -Use BIPAP/CPAP QHS if patient tolerates -Resumed home p.o. diuretics -Needs outpatient sleep study -Appreciate cardiology input Complicated UTI Possible sepsis Urine Culture: Pansensitive E. coli Continue Ceftriaxone Patient denies dysuria Hyperammonemia DD: Cirrhosis, Secondary to [place], ? due to Rituxan therapy Continue lactulose LFTs within normal limits Appreciate GI Input Patient currently not interested in further evaluation for possible liver disease Ammonia levels trended down May need Liver MRI as outpatient (Claustrophobic--Needs Open MRI) if patient agrees Hypertension Stable Continue Metoprolol DM II Hb A1C: 9.2 Dec 2018 Continue ISS, Glargine Monitor BGs Metastatic breast cancer: Anemia of chronic disease Thrombocytopenia, H/O ITP Ongoing chemotherapy No active bleeding Transfuse PRBC, platelets as needed Discussed with oncology Dr. Light LDH, reticulocyte count mildly elevated Normal folate, vitamin B levels No transfusion or steroids needed currently as per oncology Monitor CBC Needs FU with Oncology upon discharge Depression Worsening as per family Request psychiatry evaluation Continue Cymbalta, Topiramate Consulted psychiatry for input H/O DVT: On Eliquis CKD III Baseline creatinine ~ 1.2-1.3 Creatinine at baseline Renal function Avoid nephrotoxic agents as able DVT Px: On Eliquis Code Status Full code Disposition Refuses rehab placement Subjective Patient is seen and examined at bedside States feeling depressed secondary to cancer diagnosis Discussed in detail with patient and family at bedside Denies any chest pain, shortness of breath, cough, nausea, vomiting, abdominal pain Did not desaturate on 2 L of nasal cannula on nocturnal oximetry study Mental status back to baseline Titrate oxygen to keep sats between 80 to 92% Review of Systems Review of Systems: All systems reviewed & are unremarkable except as noted in HPI & below Physical Exam Physical Exam: Physical Exam: Vitals signs as noted above General Appearance:Obese, no apparent distress Head: normocephalic, Atraumatic Eyes: normal inspection, EOMI Neck: supple, Trachea midline Respiratory/Chest: Normal breath sounds, CTA Cardiovascular: S1, S2, No murmur Abdomen/GI:Soft, Non tender, Bowel sounds present Extremities/Musculoskelatal:normal inspection, B/L LE edema Neurologic/Psych:AAOX3, grossly no focal neurological deficits Skin: normal color, warm Results & Data Vital Signs (Past 12 Hours) Vital Signs Temp Pulse Pulse Resp BP BP Pulse Ox 02/09/19 11:54 36.7 C 61 20 99/65 L 92 02/09/19 07:46 36.8 C 57 L 20 114/69 99 02/09/19 05:15 55 L 02/09/19 04:35 36.5 C 58 L 20 107/61 95 Pulse Ox 02/09/19 11:54 02/09/19 07:46 02/09/19 05:15 98 02/09/19 04:35 Laboratory Results Short CBC 02/09/19 Range/Units 07:13 WBC 6.67 (4.8-10.8) K/uL Hgb 7.5 L (12.0-16.0) g/dL Hct 26.0 L (37-47) % Plt Count 28 L* (130-400) K/uL
[2019-02-09] MEDS: APIXABAN 5 MG TABLET PO SCH (20:26)
[2019-02-10 06:03] LABS: Mean Corpuscular Hgb Conc 29.8 g/dL (32-36)
[2019-02-10 06:12] LABS: Hematocrit (blood only) 25.5 % (37-47); Hemoglobin 7.6 g/dL (12.0-16.0); Mean Corpuscular Hemoglobin 25.8 pg (25-34); Mean Corpuscular Volume 86.4 fL (80-100); Nucleated RBC # (auto) 0.94 K/uL (0-0); Nucleated RBC % (auto) 14.5 %; Platelet Count 27 K/uL (130-400); RDW Coefficient of Variation 22.6 % (11.5-14.5); RDW Standard Deviation 70.2 fL (36.4-46.3); Red Blood Count 2.95 M/uL (4.2-5.4); White Blood Count 6.47 K/uL (4.8-10.8)
[2019-02-10 06:32] LABS: Platelet Estimate Decreased (Normal)
[2019-02-10] MEDS: cefTRIAXone SODIUM 2,000 MG in DEXTROSE 5% 50 ML IV SCH (06:36)
[2019-02-10] MEDS: FEXOFENADINE HCL 180 MG TAB PO SCH (08:13)
[2019-02-10] MEDS: DULOXETINE HCL 60 MG CAP PO SCH (08:14)
[2019-02-10] MEDS: LACTULOSE SYRUP 30 GM/45 ML UDP PO SCH (08:14)
[2019-02-10] MEDS: TORSEMIDE 10 MG TAB PO SCH (08:15)
[2019-02-10] MEDS: APIXABAN 5 MG TABLET PO SCH (08:15)
[2019-02-10] MEDS: guaiFENesin 600 MG TABCR PO SCH (08:16)
[2019-02-10] MEDS: PANTOprazole 40 MG TAB PO SCH (08:16)
[2019-02-10] MEDS: TOPIRAMATE 25 MG TAB PO SCH (08:17)
[2019-02-10] MEDS: METOPROLOL SUCC 25MG EXT REL TAB PO SCH (08:17)
--- NOTE | 2019-02-10 08:22 | Psychiatric Consultation ---
Date of Consultation February 10, 2019 Impression / Recommendations Impression 63-year-old female admitted medically on 02/05/2019 after presenting to the ED upon recommendation from family. Patient was reportedly confused and complaining of shortness of breath. Medical admission was recommended for treatment of encephalopathy, complicated UTI with possible sepsis, and other complicated medical concerns. Psychiatric consultation is requested to evaluate patient for worsening depression, in context of multiple situational stressors and diagnosis of metastatic breast cancer. Patient admits to worsening mood and increased anxiety over what she reports today the last month. She is able to verbalize multiple situational stressors she feels may be contributing to her current mood. Patient denies significant psychiatric history, and has no prior inpatient psychiatric admissions. She is on multiple medications for anxiety including hydroxyzine and lorazepam. Patient is also prescribed duloxetine 60 mg daily, which she states was initiated for management of chronic pain. Reviewed recommendations for outpatient therapy as well as consideration to make medication adjustments to target mood and anxiety. Patient is agreeable with our service initiating referrals for outpatient therapy, but states she is not interested in medication adjustments at this time. She verbalizes concern about interactions with her complex medication regimen, and feels that titration of multiple medications may have contributed to her confusion and presentation. Patient is agreeable to initiating outpatient treatment with therapy, and will consider medications to target mood and anxiety if necessary in the future. Patient denies suicidal ideation, hallucinations, and other signs of acute psychosis. Inpatient psychiatric admission is not indicated at this time. Patient denies other acute needs from our service. We appreciate the opportunity to participate in the care of this patient. Dr. Shahana Pat was directly involved in review and discussion of the patient's case and participated in medical decision making regarding treatment recommendations. PLAN: 02/10 - Continue current medication regimen with regard to psychiatric medications; pt declines medication adjustments at this time - Would discourage routine use of lorazepam given known drug-drug interactions with narcotic pain medications, and risk of respiratory depression and confusion in the elderly population, this concern should be communicated to outpatient providers as well - Will initiate referrals for outpatient therapy, patient willing to have counseling to discuss her mood-related concerns and situational stressors - Pt denies SI/HI, A/V hallucinations, acute psychosis; no criteria to suggest inpatient psychiatric admission is warranted - Discharge planning per primary team Risk Factors Assessment Do You Have Access To A Gun?: No Psych History Identifying Data 63-year-old female admitted medically on 02/05/2019 after presenting to the ED with confusion and shortness of breath. Patient was admitted medically for treatment of multifactorial encephalopathy likely related to complicated UTI, hypoxemia, and metastatic breast cancer with reported changes in treatment regimen. Psychiatric consultation was requested to evaluate patient for "depression, H/O metastatic cancer." Information is gathered from hospital documentation and the patient herself, the combination of which is considered to be reliable. Chief Complaint "Why am I here...? Good questions..." History of Present Illness Maite Kimble (Sandy) is a 63-year-old female admitted medically on 02/05/2019 due to concerns of confusion and shortness of breath. Hospital documentation suggests the patient was brought to the emergency room after her was concerned that she was using the TV remote as a telephone, and demonstrating other bizarre behaviors. Past medical history significant for right-sided heart failure, hypoxemia, hypertension, hyperlipidemia, history of DVT, chronic anemia, chronic ITP, rheumatoid arthritis, other chronic pain, type 2 diabetes, and breast cancer with reported metastasis. Patient is being treated medically for multifactorial encephalopathy, with other findings consistent with complicated UTI. Psychiatric consultation was requested to evaluate patient for depression, given history of cancer diagnosis. Patient's case was reviewed and discussed with psychiatric nurse liaison and supervising psychiatrist. Patient is cooperative with psychiatric evaluation. She admits that she had been demonstrating confusion prior to her admission, and when asked what brought her to the hospital she states "good question..." According to the patient's report, she had been "getting a little goofy" at home after new chemotherapy medications were implemented. Patient states that her platelets were low and she was still having "issues." The patient admits that when confusion returned, her got concerned and "noticed I was talking goofy and brought me here." The patient admits that she feels her condition has been improving drastically over the course of her admission. It was reviewed with the patient that we were asked to evaluate mood and anxiety, to determine if there were any recommendations we could make in her treatment. Patient admits that her mood has been "not good, and had a lot of things going on." She shares with this provider that she is in a significant amount of pain due to multiple spinal fractures and history of rheumatoid arthritis. She states she was diagnosed with breast cancer "a year ago in November." Other situational stressors since that time include placing her mother, who has been diagnosed with Alzheimer's, and a nursing facility. Her mother passing in March 2018, the of her dog, and water damage to her property resulting in a drawn out lawsuit. Patient states that she feels as though she has not processed the of her mother, and has been pushing off grieving certain stressors due to the busyness of her current life. Patient states "I am fighting a lot of little demons here on and off." The patient also confides in this provider that she, personally, does not wish to continue with treatment for her cancer diagnosis. Patient states that she has a living and supportive , "we are each other's every things." The patient states that if it were up to her she would decline ongoing treatment; however, she continues to fight for her . Patient states, "being in the hospital is just a bump in the road, I get that. But to me this is a pain in the a. It is just something I have to do." The patient shares with this provider that she has not previously received counseling on an outpatient basis, but would be highly interested in considering this at this time. She states that her current prescription for duloxetine was initiated in order to treat chronic pain, and that she has not noticed considerable benefit in mood or anxiety since initiating the medication back in May. Patient states that while the stressors have been difficult, she is not interested in medication adjustments to target her mood or anxiety at this time. Patient states "I do not want any more drugs, and happy being where I met with medications." Patient was encouraged to consider medication adjustments if mood does not improve after she initiates outpatient therapy. She is willing to consider medication options at that time, but not presently. Depressive symptoms reported by the patient include low mood, decreased energy, anhedonia, guilt related to her mother's passing, and occasional feelings of helplessness. Patient denies suicidal ideation or any history thereof. She states she has not had significant psychiatric treatment in the past, and denies inpatient psychiatric admissions previously. Patient denies any prior suicide attempts or self-injurious behaviors. Pt denies HI, A/V hallucinations, paranoia, yesica/hypomania, other symptoms more suggestive of a bipolar presentation, OCD, PTSD, eating disorder, and other specific psychiatric symptoms. Past Psychiatric History Previous Psych History: Denies Current Psychiatric Diagnosis: Recent depressed mood Outpatient Services: No current outpatient psychiatric providers. As needed anxiety medications are reportedly prescribed by her PCP. Previous Psych Admissions: Denies Do You Have Access To A Gun?: No History of Previous Suicide Attempt: No Past Medication Trials: Per hospital documentation: 1. Cymbalta - initiated for pain 2. Ativan 3. Vistaril 4. Gabapentin Allergies Allergy/AdvReac Type Severity Reaction Status Date / Time gabapentin AdvReac Hallucinati Verified 02/05/19 17:00 ng Home Medications Home Medications Medication Instructions Recorded Confirmed Type cholecalciferol (vitamin D3) 2,000 unit PO QAM 03/05/18 02/05/19 History [Vitamin D3] fexofenadine [Rocio Allergy] 180 mg PO QAM 03/05/18 02/05/19 History insulin aspart U-100 0 units SUBCUT AC 03/05/18 02/05/19 History lorazepam 1 mg PO BID PRN 03/05/18 02/05/19 History Lantus Solostar U-100 Insulin See Rx Instructions .ROUTE 05/16/18 02/05/19 Rx .COMPLEX #15 ml metoprolol succinate 25 mg PO BID #60 ea 05/16/18 02/05/19 Rx Eliquis 5 mg PO BID 01/06/19 02/05/19 History Xgeva 120 mg SUBCUT MONTHLY 01/06/19 02/05/19 History duloxetine 60 mg PO QAM 01/06/19 02/05/19 History fulvestrant [Faslodex] 250 mg IM Q14D 01/06/19 02/05/19 History hydromorphone 2 mg PO Q6H PRN 01/06/19 02/05/19 History hydroxyzine HCl 25 mg PO BID 01/06/19 02/05/19 History omeprazole 20 mg PO BID 01/06/19 02/05/19 History ondansetron HCl 8 mg PO Q8H PRN 01/06/19 02/05/19 History oxycodone [OxyContin] 10 mg PO Q12H 01/06/19 02/05/19 History tizanidine 4 mg PO BID PRN 01/06/19 02/05/19 History topiramate 25 mg PO BID 01/06/19 02/05/19 History torsemide 20 mg PO DAILY PRN 01/06/19 02/05/19 History Family History Patient denies known family history of mental health conditions. Substance Abuse History Patient denies any significant use of tobacco products or alcohol. Denies use of illicit substances. 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) Marital Status: Number Of Children: None Beliefs That Will Affect Care: Tenriism (Restorationism) History of Legal Problems: Denies Psychological Trauma History Comment: Denies Patient History Medical History TYE (obstructive sleep apnea) (Chronic) Obesity hypoventilation syndrome (Chronic) History of DVT (deep vein thrombosis) (Chronic) Right-sided heart failure (Chronic) Thrombocytopenia (Chronic) Metastatic breast cancer (Chronic) CKD (chronic kidney disease), stage III (Chronic) ATN (acute tubular necrosis) (Resolved) DM type 2 (diabetes mellitus, type 2) (Chronic) Hyperlipidemia (Chronic) Irritable bowel syndrome (Chronic) Rheumatoid arthritis (Chronic) Osteoarthritis (Chronic) Hypertension (Chronic) Breast cancer metastasized to bone (Inactive) Chronic kidney disease (Inactive) Rheumatoid arthritis (Inactive) Surgical History History of hernia repair (Chronic) Family History Mother Stroke Social History Preferred Language: Indonesian Communication Ability: Effective Visual Impairment: No Limitations Business Analyst Required: No Beliefs That Will Affect Care: Tenriism (Restorationism) Tenriism Beliefs: Baptist marital status: Current Living Situation: Spouse Other Information That Helps Us Care for You: No Feels Safe at Home: Yes Safety Concerns: Feels Safe At This Time Smoking Status: Never smoker Second Hand Exposure: No ; Hx Alcohol Use: No Hx Substance Use: No Physical Exam Psychiatric: Orientation: alert, oriented x 3 and cooperative Apperance: appropriately dressed, appropriately groomed and appeared stated age Obese appearing female, seated in no acute distress. Patient is appropriately dressed for setting, wearing a hospital gown. Hair is mildly unkempt, but styled in a bun with a black hair accessory. Patient mildly malodorous; however, level of hygiene and grooming appear adequate. Eye Contact: good eye contact Motor Behavior: no abnormal motor movements and + psychomotor agitation (Shaking leg for most of encounter, observed while sitting in chair) Speech: normal rate/rhythm/volume of speech Affect: euthymic affect (Not appearing overtly depressed, smiling and brightening appropriately) Mood: + depressed mood ("Not good, I have had a lot going on") and + anxious mood Thought Process: goal directed thought process, clear/coherent thought process and thought association intact Thought Content: reality based without delusions; no hopelessness (Episodic hopelessness related to physical deterioration) Suicidal Thoughts: denies suicidal thoughts, denies suicidal plan and denies suicidal intent Homicidal Thoughts: denies homicidal thoughts Hallucinations: no auditory hallucinations and no visual hallucinations Cognition: remote memory grossly intact, attention grossly intact and language grossly intact Insight: good insight Judgement: good judgement Vital Signs (Past 24 Hours): Last Vital Signs Temp 36.7 C 02/10/19 07:38 Pulse 63 02/10/19 07:38 Resp 18 02/10/19 07:38 BP 130/74 02/10/19 07:38 Pulse Ox 96 02/10/19 07:38 Review of Systems Constitutional: denied Cardiovascular: denied Respiratory: denied Gastrointestinal: reports nausea, recent episodes of diarrhea Neurological: denied Musculoskeletal: reports diffuse muscular and joint pain; significant back pain Psychiatric: denies symptoms other than stated above Total of at least 10 systems reviewed, pertinent positives as above and in HPI. Results & Data Medications Administered Apixaban (Eliquis) 5 mg PO BID [facility] Stop: 03/11/19 20:59 Last Admin: 02/10/19 08:15 Dose: 5 mg Documented by: [id number] Admin: 02/09/19 20:26 Dose: 5 mg Documented by: [id number] Calcium Carbonate (Tums) 500 mg PO Q6H PRN PRN Reason: Heartburn Stop: 03/09/19 02:04 Last Admin: 02/07/19 02:11 Dose: 500 mg Documented by: [id number] Duloxetine HCl (Cymbalta) 60 mg PO QAM [facility] Stop: 03/08/19 08:59 Last Admin: 02/10/19 08:14 Dose: 60 mg Documented by: [id number] Admin: 02/09/19 07:53 Dose: 60 mg Documented by: [id number] Admin: 02/08/19 08:23 Dose: 60 mg Documented by: [id number] Admin: 02/07/19 08:34 Dose: 60 mg Documented by: [id number] Admin: 02/06/19 08:21 Dose: 60 mg Documented by: [id number] Fexofenadine HCl (Rocio) 180 mg PO QAM [facility] Stop: 03/08/19 08:59 Last Admin: 02/10/19 08:13 Dose: 180 mg Documented by: [id number] Admin: 02/09/19 07:52 Dose: 180 mg Documented by: [id number] Admin: 02/08/19 08:22 Dose: 180 mg Documented by: [id number] Admin: 02/07/19 08:33 Dose: 180 mg Documented by: [id number] Admin: 02/06/19 08:22 Dose: 180 mg Documented by: [id number] Guaifenesin (Mucinex) 600 mg PO Q12 [facility] Stop: 03/07/19 21:44 Last Admin: 02/10/19 08:16 Dose: 600 mg Documented by: [id number] Admin: 02/09/19 20:27 Dose: 600 mg Documented by: [id number] Admin: 02/09/19 07:52 Dose: 600 mg Documented by: [id number] Admin: 02/08/19 21:06 Dose: 600 mg Documented by: [id number] Admin: 02/08/19 08:23 Dose: 600 mg Documented by: [id number] Admin: 02/07/19 21:15 Dose: 600 mg Documented by: [id number] Admin: 02/07/19 08:34 Dose: 600 mg Documented by: [id number] Admin: 02/06/19 21:05 Dose: 600 mg Documented by: [id number] Admin: 02/06/19 08:22 Dose: 600 mg Documented by: [id number] Admin: 02/05/19 22:14 Dose: 600 mg Documented by: [id number] Hydroxyzine HCl (Vistaril) 25 mg PO BID [facility] Stop: 03/07/19 20:59 Last Admin: 02/10/19 08:17 Dose: 25 mg Documented by: [id number] Admin: 02/09/19 20:26 Dose: 25 mg Documented by: [id number] Admin: 02/09/19 07:52 Dose: 25 mg Documented by: [id number] Admin: 02/08/19 21:04 Dose: 25 mg Documented by: [id number] Admin: 02/08/19 08:25 Dose: 25 mg Documented by: [id number] Admin: 02/07/19 21:18 Dose: 25 mg Documented by: [id number] Admin: 02/07/19 08:34 Dose: 25 mg Documented by: [id number] Admin: 02/06/19 21:07 Dose: 25 mg Documented by: [id number] Admin: 02/06/19 08:21 Dose: 25 mg Documented by: [id number] Admin: 02/05/19 22:14 Dose: 25 mg Documented by: [id number] Ceftriaxone Sodium 2,000 mg/ (Dextrose) 70 mls @ 100 mls/hr IV Q24H [facility]; Protocol Stop: 02/16/19 06:59 Last Infusion: 02/10/19 07:18 Dose: 0 mls/hr Documented by: [id number] Admin: 02/10/19 06:36 Dose: 100 mls/hr Documented by: [id number] Infusion: 02/09/19 07:17 Dose: 0 mls/hr Documented by: [id number] Admin: 02/09/19 06:21 Dose: 100 mls/hr Documented by: [id number] Infusion: 02/08/19 09:20 Dose: 0 mls/hr Documented by: [id number] Admin: 02/08/19 08:30 Dose: 100 mls/hr Documented by: [id number] Infusion: 02/07/19 09:45 Dose: 0 mls/hr Documented by: [id number] Admin: 02/07/19 08:33 Dose: 100 mls/hr Documented by: [id number] Infusion: 02/06/19 09:02 Dose: 0 mls/hr Documented by: [id number] Admin: 02/06/19 08:20 Dose: 100 mls/hr Documented by: [id number] Insulin Aspart (Novolog Flexpen) 0 units SC ACHS [facility] Stop: 03/07/19 20:59 Last Admin: 02/09/19 20:27 Dose: Not Given Documented by: [id number] Cosigned by: [id number] Admin: 02/09/19 17:07 Dose: Not Given Documented by: [id number] Cosigned by: [id number] Admin: 02/09/19 12:04 Dose: 1 units Documented by: [id number] Cosigned by: [id number] Admin: 02/09/19 07:51 Dose: 4 units Documented by: [id number] Cosigned by: [id number] Admin: 02/08/19 21:07 Dose: Not Given Documented by: [id number] Cosigned by: [id number] Admin: 02/08/19 17:22 Dose: 4 units Documented by: [id number] Cosigned by: [id number] Admin: 02/08/19 12:17 Dose: 1 units Documented by: [id number] Cosigned by: [id number] Admin: 02/08/19 08:27 Dose: 3 units Documented by: [id number] Cosigned by: [id number] Admin: 02/07/19 21:18 Dose: Not Given Documented by: [id number] Cosigned by: [id number] Admin: 02/07/19 17:11 Dose: 4 units Documented by: [id number] Cosigned by: [id number] Admin: 02/07/19 12:12 Dose: 4 units Documented by: [id number] Cosigned by: [id number] Admin: 02/07/19 08:38 Dose: 3 units Documented by: [id number] Cosigned by: [id number] Admin: 02/06/19 21:13 Dose: Not Given Documented by: [id number] Cosigned by: [id number] Admin: 02/06/19 17:20 Dose: 3 units Documented by: [id number] Cosigned by: [id number] Admin: 02/06/19 14:44 Dose: Not Given Documented by: [id number] Admin: 02/06/19 14:43 Dose: Not Given Documented by: [id number] Cosigned by: [id number] Admin: 02/05/19 22:23 Dose: Not Given Documented by: [id number] Cosigned by: [id number] Insulin Glargine (Lantus Solostar Pen) 5 units SQ BID [facility] Stop: 03/08/19 08:59 Last Admin: 02/09/19 20:26 Dose: 5 units Documented by: [id number] Cosigned by: [id number] Admin: 02/09/19 07:52 Dose: 5 units Documented by: [id number] Cosigned by: [id number] Admin: 02/08/19 21:06 Dose: 5 units Documented by: [id number] Cosigned by: [id number] Admin: 02/08/19 08:25 Dose: 5 units Documented by: [id number] Cosigned by: [id number] Admin: 02/07/19 21:18 Dose: 5 units Documented by: [id number] Cosigned by: [id number] Admin: 02/07/19 08:45 Dose: 5 units Documented by: [id number] Cosigned by: [id number] Admin: 02/06/19 21:13 Dose: 5 units Documented by: [id number] Cosigned by: [id number] Admin: 02/06/19 08:25 Dose: 5 units Documented by: [id number] Cosigned by: [id number] Lactulose (Chronulac) 30 gm PO TID [facility] Stop: 03/08/19 08:59 Last Admin: 02/10/19 08:14 Dose: Not Given Documented by: [id number] Admin: 02/09/19 20:25 Dose: 30 gm Documented by: [id number] Admin: 02/09/19 13:34 Dose: Not Given Documented by: [id number] Admin: 02/09/19 07:56 Dose: Not Given Documented by: [id number] Admin: 02/08/19 21:03 Dose: Not Given Documented by: [id number] Admin: 02/08/19 13:24 Dose: Not Given Documented by: [id number] Admin: 02/08/19 08:23 Dose: Not Given Documented by: [id number] Admin: 02/07/19 21:14 Dose: Not Given Documented by: [id number] Admin: 02/07/19 13:27 Dose: Not Given Documented by: [id number] Admin: 02/07/19 08:34 Dose: Not Given Documented by: [id number] Admin: 02/06/19 21:04 Dose: Not Given Documented by: [id number] Admin: 02/06/19 14:44 Dose: Not Given Documented by: [id number] Admin: 02/06/19 08:21 Dose: 30 gm Documented by: [id number] Lorazepam (Ativan) 1 mg PO BID PRN PRN Reason: Anxiety Stop: 03/07/19 20:56 Last Admin: 02/07/19 21:15 Dose: 1 mg Documented by: [id number] Admin: 02/06/19 21:19 Dose: 1 mg Documented by: [id number] Admin: 02/05/19 22:49 Dose: 1 mg Documented by: [id number] Metoprolol Succinate (Toprol Xl) 25 mg PO BID [facility] Stop: 03/07/19 21:44 Last Admin: 02/10/19 08:17 Dose: 25 mg Documented by: [id number] Admin: 02/09/19 20:26 Dose: 25 mg Documented by: [id number] Admin: 02/09/19 07:53 Dose: 25 mg Documented by: [id number] Admin: 02/08/19 21:04 Dose: 25 mg Documented by: [id number] Admin: 02/08/19 08:23 Dose: 25 mg Documented by: [id number] Admin: 02/07/19 21:15 Dose: 25 mg Documented by: [id number] Admin: 02/07/19 08:33 Dose: 25 mg Documented by: [id number] Admin: 02/06/19 21:05 Dose: 25 mg Documented by: [id number] Admin: 02/06/19 08:22 Dose: 25 mg Documented by: [id number] Admin: 02/05/19 22:14 Dose: 25 mg Documented by: [id number] Oxycodone HCl (Oxycontin) 10 mg PO Q12 [facility] Stop: 02/19/19 21:29 Last Admin: 02/09/19 20:26 Dose: 10 mg Documented by: [id number] Admin: 02/09/19 07:55 Dose: 10 mg Documented by: [id number] Admin: 02/08/19 21:03 Dose: 10 mg Documented by: [id number] Admin: 02/08/19 08:30 Dose: 10 mg Documented by: [id number] Admin: 02/07/19 21:15 Dose: 10 mg Documented by: [id number] Admin: 02/07/19 08:33 Dose: 10 mg Documented by: [id number] Admin: 02/06/19 21:10 Dose: 10 mg Documented by: [id number] Admin: 02/06/19 08:24 Dose: 10 mg Documented by: [id number] Admin: 02/05/19 22:13 Dose: 10 mg Documented by: [id number] Pantoprazole Sodium (Protonix) 40 mg PO BID [facility]; Protocol Stop: 03/07/19 21:44 Last Admin: 02/10/19 08:16 Dose: 40 mg Documented by: [id number] Admin: 02/09/19 20:27 Dose: 40 mg Documented by: [id number] Admin: 02/09/19 07:53 Dose: 40 mg Documented by: [id number] Admin: 02/08/19 21:05 Dose: 40 mg Documented by: [id number] Admin: 02/08/19 08:24 Dose: 40 mg Documented by: [id number] Admin: 02/07/19 21:15 Dose: 40 mg Documented by: [id number] Admin: 02/07/19 08:33 Dose: 40 mg Documented by: [id number] Admin: 02/06/19 21:05 Dose: 40 mg Documented by: [id number] Admin: 02/06/19 08:21 Dose: 40 mg Documented by: [id number] Admin: 02/05/19 22:15 Dose: Not Given Documented by: [id number] Topiramate (Topamax) 25 mg PO BID [facility] Stop: 03/07/19 21:44 Last Admin: 02/10/19 08:17 Dose: 25 mg Documented by: [id number] Admin: 02/09/19 20:26 Dose: 25 mg Documented by: [id number] Admin: 02/09/19 07:52 Dose: 25 mg Documented by: [id number] Admin: 02/08/19 21:04 Dose: 25 mg Documented by: [id number] Admin: 02/08/19 08:24 Dose: 25 mg Documented by: [id number] Admin: 02/07/19 21:17 Dose: 25 mg Documented by: [id number] Admin: 02/07/19 08:34 Dose: 25 mg Documented by: [id number] Admin: 02/06/19 21:06 Dose: 25 mg Documented by: [id number] Admin: 02/06/19 08:22 Dose: 25 mg Documented by: [id number] Admin: 02/05/19 22:13 Dose: 25 mg Documented by: [id number] Torsemide (Demadex) 20 mg PO DAILY [facility] Stop: 03/10/19 08:59 Last Admin: 02/10/19 08:15 Dose: 20 mg Documented by: [id number] Admin: 02/09/19 07:53 Dose: 20 mg Documented by: [id number] Admin: 02/08/19 08:24 Dose: 20 mg Documented by: [id number] Vitamin D (Vitamin D3) 2,000 units PO QAM [facility] Stop: 03/12/19 08:59 Last Admin: 02/10/19 08:17 Dose: 2,000 units Documented by: [id number] Coding Level of Care Code 12664 [facility] Intl Hosp Care Lvl 3
[2019-02-10] MEDS: OXYCODONE HCL 10 MG TABCR (OXYCONTIN) PO SCH (08:23)
[2019-02-10] MEDS: INSULIN ASPART 100 UNITS/ML 3 ML PEN SC SCH ×2 (08:23→12:56)
[2019-02-10] MEDS: INSULIN GLARGINE SOLOSTAR 100 UNITS/ML 3 ML PEN SQ SCH (08:26)
[2019-02-10] MEDS ORDERED: CHOLECALCIFEROL 1,000 UNITS TAB PO SCH (09:00)
--- NOTE | 2019-02-10 10:22 | Pulmonology Progress Note ---
Date of Service February 10, 2019 Assessment & Plan (1) Acute on chronic respiratory failure with hypoxia and hypercapnia: Multifactorial which includes underlying TYE/ OHS undiagnosed and patient on Chronic opioides for her metastatic breast Ca Patient doing better after using BiPAP. She is tolerating it well now. Patient is claustrophobic but she is willing to use BiPAP when I explained the importance of using it. Looking at the bicarb of 31 and arterial PaCO2 of 61 patient likely has TYE with a component of OHS, patient's BMI is 42. Patient needs outpatient sleep study. Patient is on home O2. Keep O2 saturation between 88 to 92%. Needs to lose weight with diet and exercise. Importance of doing it expanded the patient. No further recommendations from pulmonary perspective. Needs sleep study as an outpatient set up as soon as possible. Pulmonary follow-up. (2) Pulmonary hypertension: Type II - III with underlying diastolic CHF Diuresis as tolerated. (3) Obesity hypoventilation syndrome: Treatment as above (4) TYE (obstructive sleep apnea): Treatment as above (5) Encephalopathy: Resolved (6) Thrombocytopenia: Patient has history of chronic ITP on rituximab (7) Metastatic breast cancer: (8) History of DVT (deep vein thrombosis): History of chronic DVT on apixaban Subjective Patient seen and examined at bedside. No acute distress. Awake alert oriented x3. Complaint of diarrhea overnight. Denies any chest pain, no shortness of breath, no cough, no headache, no nausea or vomiting. Patient used BiPAP overnight. Says that she was able to tolerate it well. Review of Systems Review of Systems: All systems reviewed & are unremarkable except as noted in HPI & below Physical Exam Physical Exam: Constitutional: No acute distress HEENT: EOMI, PERRLA, Mallampati 4 Respiratory system: Minimally decreased air entry bilaterally, mild crackles lower lobes, no wheeze, no rhonchi CVS: S1-S2 positive, no murmurs or gallops, Accentuated P2 Abdomen: Soft, nontender, nondistended, positive bowel sounds x4, Obese Extremities: +2 pulses bilaterally radialis/ dorsalis pedis, +1 pitting bilateral lower extremity edema, no cyanosis Neuro: Awake alert oriented x3 Psych: Normal mood and affect ENMT: Mallampati Class: IV Lymphatic: no cervical or axillary lymphadenopathy Results & Data Vital Signs (Past 12 Hours) Vital Signs Temp Pulse Pulse Resp BP Pulse Ox 10/29/19 07:38 36.7 C 63 18 130/74 96 02/09/19 22:49 62 12 92 02/10/19 05:42 02/08/19 06:16 PG Care Time/CCT Total # of Minutes Spent Total Time Spent with Patient: Total time spent is greater than 50% in coordination of care (as documented) at patient's floor/unit and/or counseling patient:
[2019-02-10] MEDS ORDERED: LACTOBACILLUS ACIDOPHILUS (FLORANEX) TAB PO SCH (12:00)
--- NOTE | 2019-02-10 15:15 | Hospitalist Progress Note ---
Date of Service February 10, 2019 Assessment & Plan (1) Encephalopathy: Metabolic encephalopathy--Resolved Likely multifactorial--hypercapnia/Hypoxia, hyperammonemia, UTI Hold narcotic medications for excess sedation Mental status seems to be back to baseline On Home O2L 2 liters at bedtime Nocturnal oximetry on 2 liters: No desaturation Titrate oxygen to keep sats between 88 to 92% Needs outpatient sleep study Continue BiPAP if patient tolerates (As patient is claustrophobic) Acute respiratory failure with hypoxia, hypercapnia Acute on chronic respiratory acidosis Likely muti-factorial: Acute Diastolic heart failure, pulmonary hypertension, likely has sleep apnea, OHS --CXR:Cardiomegaly with mild volume overload. No advanced congestive change or pulmonary edema. Chronically low lung volume on the right with elevated right hemidiaphragm. Possible trace right pleural effusion or chronic change. This is similar to prior exam. Chronic bilateral rib fractures. -Received IV diuretics -Monitor volume status -Appreciate pulmonology, cardiology input -Supplemental oxygen as needed -Use BIPAP/CPAP QHS if patient tolerates -Continue home diuretics -Needs outpatient sleep study -Appreciate cardiology input Complicated UTI Possible sepsis Urine Culture: Pansensitive E. coli Completed Ceftriaxone course Patient denies dysuria Hyperammonemia DD: Cirrhosis, Secondary to Topomax, ? due to Rituxan therapy Continue lactulose LFTs within normal limits Appreciate GI Input Patient currently not interested in further evaluation for possible liver disease Ammonia levels trended down May need Liver MRI as outpatient (Claustrophobic--Needs Open MRI) if patient agrees Hypertension Stable Continue Metoprolol DM II Hb A1C: 9.2 Dec 2018 Continue ISS, Glargine Monitor BGs Metastatic breast cancer: Anemia of chronic disease Thrombocytopenia, H/O ITP Ongoing chemotherapy No active bleeding Transfuse PRBC, platelets as needed Discussed with oncology Dr. Light LDH, reticulocyte count mildly elevated Normal folate, vitamin B levels No transfusion or steroids needed currently as per oncology Monitor CBC Needs FU with Oncology upon discharge Depression Worsening as per family Continue Cymbalta, Topiramate Appreciate psychiatry input And to discontinue benzos given risk for respiratory depression (Patient is off benzos while hospitalization) Patient currently prefers not to adjust home antipsychotics Needs follow-up with psychiatry upon discharge H/O DVT: On Eliquis CKD III Baseline creatinine ~ 1.2-1.3 Creatinine at baseline Renal function Avoid nephrotoxic agents as able DVT Px: On Eliquis Code Status Full code Disposition Refuses rehab placement Plan to discharge home today Subjective Patient is seen and examined at bedside Reports having diarrhea overnight secondary to her lactulose Weaned her off off oxygen--saturating 92% on room air Eager to get discharged Denies any chest pain, shortness of breath, cough, nausea, vomiting, abdominal pain Review of Systems Review of Systems: All systems reviewed & are unremarkable except as noted in HPI & below Physical Exam Physical Exam: Physical Exam: Vitals signs as noted above General Appearance:Obese, no apparent distress Head: normocephalic, Atraumatic Eyes: normal inspection, EOMI Neck: supple, Trachea midline Respiratory/Chest: Normal breath sounds, CTA Cardiovascular: S1, S2, No murmur Abdomen/GI:Soft, Non tender, Bowel sounds present Extremities/Musculoskelatal:normal inspection, B/L LE edema Neurologic/Psych:AAOX3, grossly no focal neurological deficits Skin: normal color, warm Results & Data Vital Signs (Past 12 Hours) Vital Signs Temp Pulse Resp BP Pulse Ox 02/10/19 11:27 96 02/10/19 07:38 36.7 C 63 18 130/74 96 Laboratory Results Short CBC 02/10/19 Range/Units 05:42 WBC 6.47 (4.8-10.8) K/uL Hgb 7.6 L (12.0-16.0) g/dL Hct 25.5 L (37-47) % Plt Count 27 L* (130-400) K/uL
[2019-02-10 15:31] VITALS: BP 129/83; PULSE 79; TEMP 98.2; O2SAT 93
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
== END 2019-02-10 17:06 | disposition home or self-care (01) | DRG 871 ==
LOC: ED 16:02 → 2S 20:12 → 4W 02-09 15:46

== ENCOUNTER 2019-03-24 11:17 | Inpatient (IN) ==
[~2019-03-24 11:17] MED LIST: KETAMINE HCL INJ 50 MG/ML 10 ML VIAL IV ONE; SUCCINYLCHOLINE CHLORIDE 20 MG/ML 10 ML VIAL IV ONE
[2019-03-24 12:48] LABS: INR 1.2 (0.9-1.1); Partial Thromboplastin Time 27.6 Seconds (21.0-31.0); Prothrombin Time 11.7 Seconds (9.0-12.0)
[2019-03-24] MEDS ORDERED: SODIUM CHLORIDE 0.9% 250 ML IV PRN ×2 (12:49→13:14)
[2019-03-24 12:54] LABS: Alanine Aminotransferase 9 U/L (12-78); Albumin Level 2.4 gm/dl (3.4-5.0); Aspartate Aminotransferase 23 U/L (15-37); BUN Creatinine Ratio 35.5 (10-20); Blood Urea Nitrogen 41 mg/dl (7-18); Calcium 9.7 mg/dl (8.5-10.1); Carbon Dioxide 28 mmol/L (21-32); Chloride 108 mmol/L (98-107); Creatinine Clr Calc Pharmacy 65.2 ml/min; Est GFR (African American) 58.6; Est GFR (Non-African American) 50.6; Glucose 184 mg/dl (70-99); Magnesium 1.6 mg/dl (1.8-2.4); Sodium 142 mmol/L (136-145)
[2019-03-24] MEDS ORDERED: MoRPHine SULFATE 4 MG/ML 1 ML CARP\\VIAL IV STA (12:54)
[2019-03-24] MEDS ORDERED: ACETAMINOPHEN 1,000 MG/100 ML VIAL IV STA (12:54)
[2019-03-24] MEDS ORDERED: MAGNESIUM SULFATE / D5W 1 GM/100 ML BAG IV ONE (12:56)
[2019-03-24 12:59] LABS: Albumin Globulin Ratio 0.5 (0.9-2); Alkaline Phosphatase 121 U/L (45-117); Bilirubin,Total 0.5 mg/dl (0.2-1); Globulin 4.6 gm/dl (2.5-4.0); Mean Corpuscular Hgb Conc 29.9 g/dL (32-36); Phosphorus 3.5 mg/dl (2.5-4.9); Troponin I < 0.015 ng/ml (0-0.045)
[2019-03-24 13:01] LABS: Hematocrit (blood only) 18.7 % (37-47); Hemoglobin 5.6 g/dL (12.0-16.0); Mean Corpuscular Hemoglobin 25.1 pg (25-34); Mean Corpuscular Volume 83.9 fL (80-100); Nucleated RBC # (auto) 0.65 K/uL (0-0); Nucleated RBC % (auto) 9.6 %; Platelet Count 15 K/uL (130-400); RDW Coefficient of Variation 20.2 % (11.5-14.5); RDW Standard Deviation 61.4 fL (36.4-46.3); Red Blood Count 2.23 M/uL (4.2-5.4); White Blood Count 6.75 K/uL (4.8-10.8)
[2019-03-24 13:02] LABS: Anisocytosis Present; Basophils # (auto) 0.04 K/uL (0-0.2); Basophils % (auto) 0.6 %; Eosinophils # (auto) 0.13 K/uL (0-0.5); Eosinophils % (auto) 1.9 %; Immature Granulocytes # (auto) 0.37 K/uL (0.00-0.02); Immature Granulocytes % (auto) 5.5 %; Lymphocytes # (auto) 0.67 K/uL (1.2-3.4); Lymphocytes % (auto) 9.9 %; Monocytes # (auto) 0.33 K/uL (0.11-0.59); Monocytes % (auto) 4.9 %; Neutrophils # (auto) 5.21 K/uL (1.4-6.5); Neutrophils % (auto) 77.2 %; Platelet Estimate SIGNIFIC DECREASED (Normal); Polychromasia 1+; Spherocytes 1+; Tear Drop Cells 1+
[2019-03-24 13:22] LABS: Fibrinogen 717 mg/dl (184-400)
[2019-03-24] MEDS ORDERED: TXA 10% Non-IV Routes 100 MG/ML VIAL ONE (13:28)
[2019-03-24] MEDS ORDERED: ONDANSETRON INJ 2 MG/ML 2 ML VIAL ONE (13:41)
[2019-03-24] MEDS ORDERED: PROCHLORPERAZINE 1 ML IV ONE (13:44)
[2019-03-24] MEDS ORDERED: ONDANSETRON INJ 2 MG/ML 2 ML VIAL IV STA (13:47)
[2019-03-24] MEDS ORDERED: AMPICILLIN/SULBACTAM SOD 3,000 MG in 0.9 % SODIUM CHLORIDE 100 ML IV STA (16:42)
--- NOTE | 2019-03-24 17:31 | History & Physical Report ---
Date of Service March 24, 2019 Assessment & Plan (1) Acute on chronic respiratory failure with hypoxia and hypercapnia: (2) Epistaxis: (3) Severe anemia: (4) Thrombocythemia: This is a 63-year-old female who has significant past medical history of metastatic breast cancer to bone, T2 DM, HLD, obesity hypoventilation syndrome, right heart failure, chronic ITP, history of DVT anticoagulated on Eliquis, rheumatoid arthritis, depression who presents to ED at the recommendation of Dr. Light hematology oncology secondary to abnormal labs and epistaxis. In ED a nasal packing was placed trans-examic acid and bleeding has ceased. She did have a posterior pharynx blood clot that was removed by ENT. In ED patient remained hemodynamically stable. Her H&H was 5.6 and 18.7 with platelet count of 15 BUN/creatinine 41 and 1.15, glucose 184, alk phos 121, albumin 2.4, corrected calcium 11.2, mag 1.7 She is currently being transfused 2 units PRBC. admit to PCU Transfuse PRBC and pack of platelets trend cbc monitor volume status closely Per ENT DO NOT REMOVE NASAL PACKING until Hct > 30L and PLT > 100 at that time ENT will remove dressing and determine next course of action Hold Eliquis continue IV unasyn for prophylaxis (5) CKD (chronic kidney disease), stage III: Baseline creatinine 1.4 BUN/creatinine 41 and 1.15 Prerenal likely in setting of hypovolemia Follow BMP (6) Metastatic breast cancer: Metastatic breast cancer to bone, lung Follows Dr. Light Receiving Xgeva and Faslodex -treatments held today given thrombocytopenia oxycodone for metastatic pain - verified in pdmp (7) Right-sided heart failure: Chronic right sided heart failure Echo 09/04/2018 revealed normal LVEF, grade 1 diastolic dysfunction, right ventricular cavity dilated with diffuse right ventricular hypokinesis Monitor volume status closely given transfusion Patient prescribed O2 2 L at home daily weight strict I and O (8) TYE (obstructive sleep apnea): CPAP/BiPAP at bedtime Currently unable to tolerate given nasal packing Continue oxygen via oxygen mask (9) DM type 2 (diabetes mellitus, type 2): 01/07/19 A1c 9.2 Lantus/NovoLog per protocol Repeat A1c in a.m. (10) History of DVT (deep vein thrombosis): History of DVT and also with hypercoagulable state given metastatic carcinoma Hold Eliquis in setting of severe anemia and thrombocytopenia (11) Rheumatoid arthritis: Patient takes oxycodone 5 mg every 4 hours Verified with PDMP (12) DVT prophylaxis: SCD/TEDS Contraindicated in setting of severe anemia, thrombocytopenia Hold Eliquis Disposition: Admit to PCU Follow-up: PCP Dr. Larry upon discharge Patient was seen and examined in collaboration with Dr. Kat, please see addendum History of Present Illness Chief Complaint: Referred by hematology/oncology secondary to epistaxis and abnormal labs. Primary Care Provider: Lucio Larry MD This is a 63-year-old female who has significant past medical history of metastatic breast cancer to bone, T2 DM, HLD, obesity hypoventilation syndrome, right heart failure, chronic ITP, history of DVT anticoagulated on Eliquis, rheumatoid arthritis, depression who presents to ED at the recommendation of Dr. Light hematology oncology secondary to abnormal labs and epistaxis. For the past 2 weeks she has been having off and on nose bleeds, one lasting for 5 hours. She sought tx at [facility] and was able to get bleeding to stop. Further complains of SOB at rest, TOMAS on exertion, dizziness, nausea. Denies fever but is always cold. Denies sweats, syncope, chest pain, hemoptysis, emesis, diarrhea, melena, hematochezia. Complains of chronic arthralgias. She was seen today at Dr. Light's office and was found to be hypoxic in the 70s. She required oxygen at 3 L via NC. Because of hypoxia and low platelets she was referred to ED. Her last nosebleed was yesterday. In ED a nasal packing was placed trans-examined acid and bleeding has ceased. She did have a posterior pharynx blood clot that was removed by ENT. In ED patient remained hemodynamically stable. Her H&H was 5.6 and 18.7 with platelet count of 15 BUN/creatinine 41 and 1.15, glucose 184, alk phos 121, albumin 2.4, corrected calcium 11.2, mag 1.7 She is currently being transfused 2 units PRBC. Allergies Allergy/AdvReac Type Severity Reaction Status Date / Time gabapentin AdvReac Hallucinati Verified 03/24/19 14:13 ng Home Medications Home Medications Medication Instructions Recorded Confirmed Type fexofenadine [Rocio Allergy] 180 mg PO QAM 03/05/18 03/24/19 History Lantus Solostar U-100 Insulin See Rx Instructions .ROUTE 05/16/18 03/24/19 Rx .COMPLEX #15 ml metoprolol succinate 25 mg PO BID #60 ea 05/16/18 03/24/19 Rx Eliquis 5 mg PO BID 01/06/19 03/24/19 History Xgeva 120 mg SUBCUT MONTHLY 01/06/19 03/24/19 History fulvestrant [Faslodex] 250 mg IM Q14D 01/06/19 03/24/19 History hydroxyzine HCl 25 mg PO BID 01/06/19 03/24/19 History omeprazole 20 mg PO BID 01/06/19 03/24/19 History torsemide 20 mg PO DAILY PRN 01/06/19 03/24/19 History insulin aspart U-100 [Novolog 0 unit SUBCUT UD 03/24/19 03/24/19 History Flexpen U-100 Insulin] oxycodone 5 mg PO Q4 03/24/19 03/24/19 History Past Med/Surg History Medical History ATN (acute tubular necrosis) (Resolved) Breast cancer metastasized to bone (Inactive) Chronic kidney disease (Inactive) CKD (chronic kidney disease), stage III (Chronic) DM type 2 (diabetes mellitus, type 2) (Chronic) History of DVT (deep vein thrombosis) (Chronic) Hyperlipidemia (Chronic) Hypertension (Chronic) Irritable bowel syndrome (Chronic) Metastatic breast cancer (Chronic) Obesity hypoventilation syndrome (Chronic) TYE (obstructive sleep apnea) (Chronic) Osteoarthritis (Chronic) Rheumatoid arthritis (Inactive) Rheumatoid arthritis (Chronic) Right-sided heart failure (Chronic) Thrombocytopenia (Chronic) Surgical History History of hernia repair (Chronic) Family History Mother Stroke Diabetes Father Diabetes Social History Preferred Language: Slovak Communication Ability: Effective Visual Impairment: No Limitations Hatchery Man Required: No Beliefs That Will Affect Care: Faith Faith Beliefs: Christianity marital status: Current Living Situation: Spouse Other Information That Helps Us Care for You: No Feels Safe at Home: Yes Safety Concerns: Feels Safe At This Time Smoking Status: Never smoker Second Hand Exposure: No ; Hx Alcohol Use: No Hx Substance Use: No Review of Systems Review of Systems: All systems reviewed & are unremarkable except as noted in HPI & below Physical Exam Physical Exam: Constitutional: WD/WN, unkempt, vitals as above, NAD, sitting up in bed, pleasant, conversing easily Head: Normocephalic, Atraumatic Eyes: PERRL, conjunctivae normal, anicteric sclerae ENMT: external ear WN, Nose with nasal packing in place, oxymask in place due to unable to place NC, oropharynx normal Neck: trachea midline, no thyromegaly normal visual inspection Respiratory: normal respiratory effort, lungs clear to auscultation, no wheeze, rales, rhonchi. Normal insp/exp effort, no accessory muscle use Cardiovascular: RRR, no murmur, trace lower ext edema with venous stasis changes Vessels: no JVD or carotid bruit Chest: normal inspection of chest Abdomen: normal bowel sounds, soft, nontender, no hepatosplenomegaly Musculoskeletal: no cyanosis or clubbing, extremities motor strength 5/5 Skin: no rashes, warm and dry normal turgor Neurologic: PERRL, EOMI, accommodation nl, no face palsy, no dysarthria CN's II-XI intact bilaterally and moves all extremities Psychiatric: A+Ox3, euthymic affect Lymphatic: no cervical or axillary lymphadenopathy : deferred Results & Data Vital Signs (Past 12 Hours) Vital Signs Temp Pulse Pulse Resp BP BP Pulse Ox 03/24/19 17:20 36.6 C 76 25 H 135/85 98 03/24/19 17:15 36.5 C 82 22 136/76 98 03/24/19 17:10 72 22 100 03/24/19 17:01 83 20 136/76 98 03/24/19 17:00 36.4 C L 73 25 H 136/76 99 03/24/19 16:59 36.4 C L 72 22 136/76 98 03/24/19 16:50 78 22 99 03/24/19 16:47 79 27 H 135/74 98 03/24/19 16:44 36.7 C 99 H 25 H 135/74 98 03/24/19 16:40 72 25 H 100 03/24/19 16:30 74 18 99 03/24/19 16:29 36.5 C 80 20 127/77 100 03/24/19 16:27 36.5 C 76 21 129/77 100 03/24/19 16:20 80 18 99 03/24/19 16:12 36.5 C 84 18 132/73 98 03/24/19 16:10 80 20 100 03/24/19 16:01 86 19 132/73 94 03/24/19 16:00 86 17 92 03/24/19 15:50 80 23 100 03/24/19 15:40 83 25 H 99 03/24/19 15:33 36.5 C 83 20 125/68 100 03/24/19 15:32 36.5 C 82 22 125/68 100 03/24/19 15:31 85 22 97 03/24/19 15:30 85 20 125/68 96 03/24/19 15:20 80 15 100 03/24/19 15:10 78 22 99 03/24/19 15:03 36.5 C 83 19 154/76 H 96 03/24/19 15:01 90 19 98 03/24/19 15:00 83 16 154/76 H 03/24/19 14:50 92 H 23 03/24/19 14:48 36.6 C 93 H 20 125/70 96 03/24/19 14:46 93 H 19 03/24/19 14:45 36.5 C 89 19 125/70 97 03/24/19 14:40 91 H 18 03/24/19 14:33 82 22 127/67 97 03/24/19 14:31 103 H 17 90 03/24/19 14:30 36.6 C 93 H 20 125/70 97 03/24/19 14:25 97 H 23 135/67 93 03/24/19 14:24 36.6 C 95 H 20 135/67 99 03/24/19 14:20 108 H 21 92 03/24/19 14:13 36.6 C 88 16 138/82 98 03/24/19 14:10 89 25 H 95 03/24/19 14:01 94 H 21 03/24/19 14:00 87 22 138/82 97 03/24/19 13:50 88 22 96 03/24/19 13:40 81 20 90 03/24/19 13:30 87 14 88 L 03/24/19 13:20 83 25 H 95 03/24/19 13:10 86 23 96 03/24/19 13:01 79 26 H 100 03/24/19 13:00 83 19 156/78 H 100 03/24/19 12:50 84 15 03/24/19 12:42 87 23 132/107 H 99 03/24/19 12:40 86 20 03/24/19 12:37 95 03/24/19 12:30 87 31 H 03/24/19 12:20 84 26 H 03/24/19 12:10 86 27 H 03/24/19 12:07 94 03/24/19 12:01 86 26 H 134/65 100 03/24/19 12:00 83 22 96 03/24/19 11:50 86 23 99 03/24/19 11:40 88 26 H 98 03/24/19 11:31 36.5 C 87 20 137/61 93 03/24/19 11:30 85 18 158/77 H 95 03/24/19 11:25 84 24 137/61 96 Laboratory Results Short CBC 03/24/19 Range/Units 12:13 WBC 6.75 (4.8-10.8) K/uL Hgb 5.6 L* (12.0-16.0) g/dL Hct 18.7 L* (37-47) % Plt Count 15 L* (130-400) K/uL BMP 03/24/19 12:13 Sodium 142 Potassium 4.0 Chloride 108 H Carbon Dioxide 28 BUN 41 H Creatinine 1.15 Glucose 184 H Calcium 9.7 Cardiac Enzymes 03/24/19 Range/Units 12:13 Troponin I < 0.015 (0-0.045) ng/ml Liver Function 03/24/19 Range/Units 12:13 Total Bilirubin 0.5 (0.2-1) mg/dl AST 23 (15-37) U/L ALT 9 L (12-78) U/L Alkaline Phosphatase 121 H (45-117) U/L Albumin 2.4 L (3.4-5.0) gm/dl ECG Rate (beats per minute): 80 Rhythm: normal sinus Code Status & VTE Plan Code Status Full Code VTE Prophylaxis Plan VTE Prophylaxis will be ordered: No Reason for no VTE drug order: Contraindicated Supervising Physician Co-Signing Physician Notes I have seen and examined the patient and have discussed the case with the provider above. I agree with the assessment and plan as stated with the following exceptions. 63 yo F with metastatic breast cancer presents with acute blood loss anemia 2/2 severe epistaxis with recurrence today. She was seen by Dr. Marcelino today in the ER and she said he pulled a large blood clot from the back of her nose. She is currently packed in the R nare with a TXA-soaked rocket and has no active bleeding with some blood on the gauze. She is feeling less short of breath than on arrival after 3 units of blood and 1 pack of platelets, however, still isn't breathing at baseline with the packing in place. She does report feeling better generally. She is requesting a courtney and some food which was ordered. On exam she is obese and in NAD, oriented and mentating clearly. Lungs are CTAB with no increased respiratory effort. CV exam reveals normal S1/2 without murmurs. No pitting edema. Regular rate and rhythm. Abdomen is protuberant but soft and nontender. Extremities are warm and well- perfused. Repeat H/H is 8.7/28 and her repeat PLT count is 15. Will plan to transfuse two more packs of platelets overnight for goal >100K. Watch closely for volume overload. She has a h/o heart failure and is on torsemide which has been held in setting of acute bleed. Would consider updated her Oncologist, Dr. Christophe Light [place], [place]
--- NOTE | 2019-03-24 19:47 | Emergency Department Note ---
Entered by Courtney Ramsay acting as a scribe for Faisal Navarro MD History of Present Illness General Chief complaint: Abnormal Labs/Diagnostic Testing Time Seen by Provider: 03/24/19 12:11 Source: patient History of Present Illness Provider complaint: low blood count Onset (ago): day(s) 1 Pain Consistency: + constant Maximum Pain Intensity: 4 Quality: + other (low levels ) Relieved By: + none Exacerbated By: + other (cancer ) Associated symptoms: + denies other symptoms The patient is a 63 y/o female who presents to the emergency department for alize luation of constant low blood level that began a day ago. The patient states that she has been turning black and blue very easily recently. She notes that she is on Eliquis for blood clots for metastatic stage 4 cancer. They note that the patient is currently a little short of breath because she wears oxygen at home but did not have any for the drive over. The family notes that blood platelet levels are at 16 currently. The patient reports that she believes this is normal with her cancer and she is used to the symptoms. The patient denies hematemesis, and any other symptoms. Home Medications Home Medications Medication Instructions Recorded Confirmed Type fexofenadine [Rocio Allergy] 180 mg PO QAM 03/05/18 03/24/19 History Lantus Solostar U-100 Insulin See Rx Instructions .ROUTE 05/16/18 03/24/19 Rx .COMPLEX #15 ml metoprolol succinate 25 mg PO BID #60 ea 05/16/18 03/24/19 Rx Eliquis 5 mg PO BID 01/06/19 03/24/19 History Xgeva 120 mg SUBCUT MONTHLY 01/06/19 03/24/19 History fulvestrant [Faslodex] 250 mg IM Q14D 01/06/19 03/24/19 History hydroxyzine HCl 25 mg PO BID 01/06/19 03/24/19 History omeprazole 20 mg PO BID 01/06/19 03/24/19 History torsemide 20 mg PO DAILY PRN 01/06/19 03/24/19 History insulin aspart U-100 [Novolog 0 unit SUBCUT UD 03/24/19 03/24/19 History Flexpen U-100 Insulin] oxycodone 5 mg PO Q4 03/24/19 03/24/19 History Allergies Allergy/AdvReac Type Severity Reaction Status Date / Time gabapentin AdvReac Hallucinati Verified 03/24/19 14:13 ng Past Med/Surg History Medical History ATN (acute tubular necrosis) (Resolved) Breast cancer metastasized to bone (Inactive) Chronic kidney disease (Inactive) CKD (chronic kidney disease), stage III (Chronic) DM type 2 (diabetes mellitus, type 2) (Chronic) History of DVT (deep vein thrombosis) (Chronic) Hyperlipidemia (Chronic) Hypertension (Chronic) Irritable bowel syndrome (Chronic) Metastatic breast cancer (Chronic) Obesity hypoventilation syndrome (Chronic) TYE (obstructive sleep apnea) (Chronic) Osteoarthritis (Chronic) Rheumatoid arthritis (Inactive) Rheumatoid arthritis (Chronic) Right-sided heart failure (Chronic) Thrombocytopenia (Chronic) Surgical History History of hernia repair (Chronic) Family History Mother Stroke Diabetes Father Diabetes Social History Preferred Language: Kyrgyz Communication Ability: Effective Visual Impairment: No Limitations Keysmith Required: No Beliefs That Will Affect Care: Oriental Orthodox Oriental Orthodox Beliefs: Gnosticism marital status: Current Living Situation: Spouse Other Information That Helps Us Care for You: No Feels Safe at Home: Yes Safety Concerns: Feels Safe At This Time Smoking Status: Never smoker Second Hand Exposure: No ; Hx Alcohol Use: No Hx Substance Use: No Review of Systems See HPI for pertinent positives & negatives. and A total of 10 systems reviewed and were otherwise negative Physical Exam Vital Signs Vital Signs - 24 hr 03/24/19 14:40 03/24/19 14:45 03/24/19 14:46 Temperature 36.5 C Temperature Source Oral Pulse Rate 91 H 89 93 H Pulse Rate [Apical] Pulse Rate from SpO2 Sensor Respiratory Rate 18 19 19 Respiratory Effort / Characteristics Respiratory Depth Blood Pressure 125/70 Blood Pressure [Right Arm] Blood Pressure Mean 90 Blood Pressure Mean [Right Arm] Blood Pressure Position Pulse Oximetry 97 Oxygen Delivery Method Oxygen Flow Rate 03/24/19 14:48 03/24/19 14:50 03/24/19 15:00 Temperature 36.6 C Temperature Source Oral Pulse Rate 93 H 92 H 83 Pulse Rate [Apical] Pulse Rate from SpO2 Sensor Respiratory Rate 20 23 16 Respiratory Effort / Characteristics Respiratory Depth Blood Pressure 125/70 154/76 H Blood Pressure [Right Arm] Blood Pressure Mean 88 96 Blood Pressure Mean [Right Arm] Blood Pressure Position Pulse Oximetry 96 Oxygen Delivery Method Oxygen Flow Rate 03/24/19 15:01 03/24/19 15:03 03/24/19 15:10 Temperature 36.5 C Temperature Source Oral Pulse Rate 90 83 78 Pulse Rate [Apical] Pulse Rate from SpO2 Sensor 88 77 Respiratory Rate 19 19 22 Respiratory Effort / Characteristics Respiratory Depth Blood Pressure 154/76 H Blood Pressure [Right Arm] Blood Pressure Mean 102 Blood Pressure Mean [Right Arm] Blood Pressure Position Pulse Oximetry 98 96 99 Oxygen Delivery Method Oxygen Flow Rate 4 03/24/19 15:20 03/24/19 15:30 03/24/19 15:31 Temperature Temperature Source Pulse Rate 80 85 85 Pulse Rate [Apical] Pulse Rate from SpO2 Sensor 80 84 83 Respiratory Rate 15 20 22 Respiratory Effort / Characteristics Respiratory Depth Blood Pressure 125/68 Blood Pressure [Right Arm] Blood Pressure Mean 80 Blood Pressure Mean [Right Arm] Blood Pressure Position Pulse Oximetry 100 96 97 Oxygen Delivery Method Oxygen Flow Rate 03/24/19 15:32 03/24/19 15:33 03/24/19 15:40 Temperature 36.5 C 36.5 C Temperature Source Oral Oral Pulse Rate 82 83 83 Pulse Rate [Apical] Pulse Rate from SpO2 Sensor 84 Respiratory Rate 22 20 25 H Respiratory Effort / Characteristics Respiratory Depth Blood Pressure 125/68 125/68 Blood Pressure [Right Arm] Blood Pressure Mean 87 87 Blood Pressure Mean [Right Arm] Blood Pressure Position Sitting Pulse Oximetry 100 100 99 Oxygen Delivery Method Oxygen Flow Rate 03/24/19 15:50 03/24/19 16:00 03/24/19 16:01 Temperature Temperature Source Pulse Rate 80 86 86 Pulse Rate [Apical] Pulse Rate from SpO2 Sensor 80 87 84 Respiratory Rate 23 17 19 Respiratory Effort / Characteristics Respiratory Depth Blood Pressure 132/73 Blood Pressure [Right Arm] Blood Pressure Mean 103 Blood Pressure Mean [Right Arm] Blood Pressure Position Pulse Oximetry 100 92 94 Oxygen Delivery Method Oxygen Flow Rate 03/24/19 16:10 03/24/19 16:12 03/24/19 16:20 Temperature 36.5 C Temperature Source Oral Pulse Rate 80 80 Pulse Rate [Apical] 84 Pulse Rate from SpO2 Sensor 80 79 Respiratory Rate 20 18 18 Respiratory Effort / Characteristics Non-Labored Respiratory Depth Normal Blood Pressure Blood Pressure [Right Arm] 132/73 Blood Pressure Mean Blood Pressure Mean [Right Arm] 92 Blood Pressure Position Pulse Oximetry 100 98 99 Oxygen Delivery Method Oxymask Oxygen Flow Rate 03/24/19 16:27 03/24/19 16:29 03/24/19 16:30 Temperature 36.5 C 36.5 C Temperature Source Oral Oral Pulse Rate 76 80 74 Pulse Rate [Apical] Pulse Rate from SpO2 Sensor 77 79 Respiratory Rate 21 20 18 Respiratory Effort / Characteristics Respiratory Depth Blood Pressure 129/77 127/77 Blood Pressure [Right Arm] Blood Pressure Mean 90 93 Blood Pressure Mean [Right Arm] Blood Pressure Position Pulse Oximetry 100 100 99 Oxygen Delivery Method Oxygen Flow Rate 03/24/19 16:40 Temperature Temperature Source Pulse Rate 72 Pulse Rate [Apical] Pulse Rate from SpO2 Sensor 73 Respiratory Rate 25 H Respiratory Effort / Characteristics Respiratory Depth Blood Pressure Blood Pressure [Right Arm] Blood Pressure Mean Blood Pressure Mean [Right Arm] Blood Pressure Position Pulse Oximetry 100 Oxygen Delivery Method Oxygen Flow Rate GENERAL: Awake, alert, chronically ill-appearing, in no distress. bmi 41.9. HENT: Normocephalic, atraumatic. Oropharynx with dry mucous membranes and otherwise unremarkable. On initial exam no epistaxis or evidence thereof. During ED observation developed active epistaxis of right nare. Upon removal of clots, brisk bleeding resumed from right nare from unidentifiable source with drainage posteriorly in pharynx. EYES: Normal conjunctiva. Sclera non-icteric. NECK: Supple. No nuchal rigidity. FROM. No JVD. RESPIRATORY: Diminished breath sounds at the bases. otherwise clear. CARDIAC: Regular rate, normal rhythm. Extremities warm and well perfused. Pulses equal. ABDOMEN: Soft, non-distended. No tenderness to palpation. No rebound or guarding. No masses. Scant ecchymosis of abdominal wall without significant tend erness. No palpable large hematomas though limited by body habits. RECTAL: Deferred. MUSCULOSKELETAL: Chest examination reveals no tenderness. The back is symmetrical on inspection without obvious abnormality. There is no CVA tenderness to palpation. No joint edema. LOWER EXTREMITIES: Calves are equal size bilaterally and non-tender. No edema. No discoloration. NEURO: Normal sensorium. No sensory or motor deficits noted. SKIN: Mild pallor. No rash or jaundice noted. Procedures Epistaxis Control Time Out Performed: Yes Nostril: right Nose Prepped With: other (TXA) Direct Inspection: yes and unable to visualize Clots Removed by: blowing nose, suction and manually Cautery Used: none Device Inserted: nasal tampon (soaked with TXA.) Patient Tolerated Procedure: well Complications: other (none) Course Course 1220: Past medical records reviewed. The patient was evaluated in room B09. A complete history and physical exam was performed. We discussed the risks and benefits of a blood transfusion and the patient verbally agreed. 1415: The patient is experiencing another nose bleed. After throughout suctions and remove in the clots, the right nostril is still bleeding. Seems at hemostasis after a TXA soaked rhino rocket. 1551: I spoke with Dr. Viv JOHN ENT. 1605: I spoke with the blood bank. 1436: I spoke with Dr. De Santiago hospitalist. She will evaluate for further management. Administered Medications Fexofenadine HCl (Rocio) 180 mg PO QAM ADEBAYO Stop: 04/24/19 08:59 Last Admin: 03/25/19 10:44 Dose: 180 mg Documented by: [id number] Hydroxyzine HCl (Vistaril) 25 mg PO BID ADEBAYO Stop: 04/23/19 20:59 Last Admin: 03/25/19 10:44 Dose: 25 mg Documented by: [id number] Admin: 03/24/19 21:45 Dose: 25 mg Documented by: [id number] Ampicillin Sodium/Sulbactam Sodium 3,000 mg/ Sodium Chloride 108 mls @ 216 mls/hr IV Q6H ADEBAYO Stop: 03/27/19 01:59 Last Admin: 03/25/19 14:27 Dose: 216 mls/hr Documented by: [id number] Infusion: 03/25/19 09:10 Dose: 0 mls/hr Documented by: [id number] Admin: 03/25/19 08:39 Dose: 216 mls/hr Documented by: [id number] Infusion: 03/25/19 02:05 Dose: 0 mls/hr Documented by: [id number] Admin: 03/25/19 01:35 Dose: 216 mls/hr Documented by: [id number] Insulin Aspart (Novolog Flexpen) 0 units SC ACHS ADEBAYO Stop: 04/23/19 20:59 Last Admin: 03/25/19 12:58 Dose: 4 units Documented by: [id number] Cosigned by: [id number] Admin: 03/25/19 09:46 Dose: 1 units Documented by: [id number] Cosigned by: [id number] Admin: 03/24/19 21:45 Dose: 4 units Documented by: [id number] Cosigned by: [id number] Insulin Glargine (Lantus Solostar Pen) 0 - 20 units SC BID [facility]; Protocol Stop: 04/23/19 20:59 Last Admin: 03/25/19 08:42 Dose: 20 units Documented by: [id number] Cosigned by: [id number] Admin: 03/24/19 21:47 Dose: Not Given Documented by: [id number] Cosigned by: [id number] Metoprolol Succinate (Toprol Xl) 25 mg PO BID [facility] Stop: 04/23/19 20:59 Last Admin: 03/25/19 10:44 Dose: 25 mg Documented by: [id number] Admin: 03/24/19 21:45 Dose: 25 mg Documented by: [id number] Ondansetron HCl (Zofran) 4 mg IV Q6H PRN PRN Reason: Nausea Stop: 04/23/19 19:56 Last Admin: 03/25/19 07:59 Dose: 4 mg Documented by: [id number] Oxycodone HCl (Roxicodone Immediate Rel) 5 mg PO Q4H PRN PRN Reason: Pain Stop: 04/07/19 20:27 Last Admin: 03/25/19 01:34 Dose: 5 mg Documented by: [id number] Admin: 03/24/19 20:46 Dose: 5 mg Documented by: [id number] Pantoprazole Sodium (Protonix) 40 mg PO BID [facility] Stop: 04/23/19 20:59 Last Admin: 03/25/19 10:44 Dose: 40 mg Documented by: [id number] Admin: 03/24/19 21:45 Dose: 40 mg Documented by: [id number] Discontinued Medications Acetaminophen (Ofirmev) 1,000 mg in 100 mls @ 400 mls/hr IV NOW STA Stop: 03/24/19 13:08 Last Infusion: 03/24/19 13:27 Dose: 0 mls/hr Documented by: [id number] Admin: 03/24/19 13:11 Dose: 400 mls/hr Documented by: [id number] Magnesium Sulfate/Dextrose (Magnesium Sulfate / D5w) 1 gm in 100 mls @ 100 mls/hr IV ONE ONE Stop: 03/24/19 13:55 Last Infusion: 03/24/19 14:32 Dose: 0 mls/hr Documented by: [id number] Admin: 03/24/19 13:11 Dose: 100 mls/hr Documented by: [id number] Prochlorperazine (Compazine) 1 mls @ 1 mls/min IV ONE ONE Stop: 03/24/19 13:45 Last Admin: 03/24/19 13:48 Dose: Not Given Documented by: [id number] Ampicillin Sodium/Sulbactam Sodium 3,000 mg/ Sodium Chloride 108 mls @ 200 mls/hr IV NOW STA; Protocol Stop: 03/24/19 17:14 Last Infusion: 03/24/19 21:52 Dose: 0 mls/hr Documented by: [id number] Admin: 03/24/19 20:18 Dose: 200 mls/hr Documented by: [id number] Morphine Sulfate (Morphine Sulfate) 4 mg IV NOW STA Stop: 03/24/19 12:55 Last Admin: 03/24/19 13:43 Dose: 4 mg Documented by: [id number] Ondansetron HCl (Zofran) Confirm Administered Dose 4 mg .ROUTE .STK-MED ONE Stop: 03/24/19 13:42 Last Admin: 03/24/19 13:42 Dose: 4 mg Documented by: [id number] Ondansetron HCl (Zofran) 4 mg IV NOW STA Stop: 03/24/19 13:48 Last Admin: 03/24/19 13:48 Dose: 4 mg Documented by: [id number] Oxymetazoline HCl (Afrin 0.05%) 2 sprays KORTNEY NOW ONE Stop: 03/25/19 08:32 Last Admin: 03/25/19 09:08 Dose: 2 sprays Documented by: [id number] Oxymetazoline HCl (Afrin 0.05%) 1 sprays NA NOW ONE Stop: 03/25/19 09:13 Last Admin: 03/25/19 10:44 Dose: 1 sprays Documented by: [id number] Tranexamic Acid (Tranexamic Acid 10% Non-Iv Routes) 500 mg NA ONE ONE Stop: 03/24/19 13:29 Last Admin: 03/24/19 14:11 Dose: 500 mg Documented by: [id number] Critical Care Time Critical Care Time: Yes Total Critical Care Time: 95 I have personally spent greater than 95 minutes of critical care time in the direct management of this patient. This includes bedside care, interpretation of diagnostic studies, and testing, discussion with consultants, patient, and family members, and other required patient management activities. This 95 minutes is in excess of all separately billable procedures. Medical Decision Making Differential Diagnosis Differential includes acute coronary syndrome, myocardial infarction, CVA, TIA, anemia, infection, pneumonia, UTI, pyelonephritis, poor nutrition, dehydration, electrolyte disturbance,hypoglycemia. Medical Records Attestation: I reviewed the patient's medical records. Home Medications Current Medication List: was personally reviewed by me Laboratory Data Attestation: I reviewed the patient's lab results. Result diagrams: 03/25/19 06:32 03/25/19 09:52 Lab Results 03/24/19 03/24/19 03/24/19 Range/Units 12:13 12:13 12:13 WBC 6.75 (4.8-10.8) K/uL RBC 2.23 L (4.2-5.4) M/uL Hgb 5.6 L* (12.0-16.0) g/dL Hct 18.7 L* (37-47) % MCV 83.9 (80-100) fL MCH 25.1 (25-34) pg MCHC 29.9 L (32-36) g/dL RDW Std Deviation 61.4 H (36.4-46.3) fL RDW Coeff of [place] 20.2 H (11.5-14.5) % Plt Count 15 L* (130-400) K/uL Immature Gran % (Auto) 5.5 % Neut % (Auto) 77.2 % Lymph % (Auto) 9.9 % [place] % (Auto) 4.9 % Eos % (Auto) 1.9 % Baso % (Auto) 0.6 % Immature Gran # (Auto) 0.37 H (0.00-0.02) K/uL Neut # (Auto) 5.21 (1.4-6.5) K/uL Lymph # (Auto) 0.67 L (1.2-3.4) K/uL [place] # (Auto) 0.33 (0.11-0.59) K/uL Eos # (Auto) 0.13 (0-0.5) K/uL Baso # (Auto) 0.04 (0-0.2) K/uL Absolute Nucleated RBC 0.65 H (0-0) K/uL Nucleated RBC % (auto) 9.6 % Platelet Estimate SIGNIFIC DECREASED (Normal) Polychromasia 1+ Anisocytosis Present Spherocytes 1+ Tear Drop Cells 1+ PT 11.7 (9.0-12.0) Seconds INR 1.2 H (0.9-1.1) APTT 27.6 (21.0-31.0) Seconds PTT Ratio 1.0 Fibrinogen (184-400) mg/dl Sodium 142 (136-145) mmol/L Potassium 4.0 (3.5-5.1) mmol/L Chloride 108 H (98-107) mmol/L Carbon Dioxide 28 (21-32) mmol/L Anion Gap 7.0 (3-11) BUN 41 H (7-18) mg/dl Creatinine 1.15 (0.6-1.2) mg/dl Est Cr Clr Drug Dosing 65.2 ml/min Est GFR ( Amer) 58.6 Est GFR (Non-Af Amer) 50.6 BUN/Creatinine Ratio 35.5 H (10-20) Glucose 184 H (70-99) mg/dl Calcium 9.7 (8.5-10.1) mg/dl Phosphorus 3.5 (2.5-4.9) mg/dl Magnesium 1.6 L (1.8-2.4) mg/dl Total Bilirubin 0.5 (0.2-1) mg/dl AST 23 (15-37) U/L ALT 9 L (12-78) U/L Alkaline Phosphatase 121 H (45-117) U/L Troponin I < 0.015 (0-0.045) ng/ml Total Protein 7.0 (6.4-8.2) gm/dl Albumin 2.4 L (3.4-5.0) gm/dl Globulin 4.6 H (2.5-4.0) gm/dl Albumin/Globulin Ratio 0.5 L (0.9-2) Hepatitis C Ab Screen (Neg) Blood Type Antibody Screen Crossmatch 03/24/19 03/24/19 03/24/19 Range/Units 12:13 12:13 12:15 WBC (4.8-10.8) K/uL RBC (4.2-5.4) M/uL Hgb (12.0-16.0) g/dL Hct (37-47) % MCV (80-100) fL MCH (25-34) pg MCHC (32-36) g/dL RDW Std Deviation (36.4-46.3) fL RDW Coeff of Flori (11.5-14.5) % Plt Count (130-400) K/uL Immature Gran % (Auto) % Neut % (Auto) % Lymph % (Auto) % [place] % (Auto) % Eos % (Auto) % Baso % (Auto) % Immature Gran # (Auto) (0.00-0.02) K/uL Neut # (Auto) (1.4-6.5) K/uL Lymph # (Auto) (1.2-3.4) K/uL [place] # (Auto) (0.11-0.59) K/uL Eos # (Auto) (0-0.5) K/uL Baso # (Auto) (0-0.2) K/uL Absolute Nucleated RBC (0-0) K/uL Nucleated RBC % (auto) % Platelet Estimate (Normal) Polychromasia Anisocytosis Spherocytes Tear Drop Cells PT (9.0-12.0) Seconds INR (0.9-1.1) APTT (21.0-31.0) Seconds PTT Ratio Fibrinogen 717 H (184-400) mg/dl Sodium (136-145) mmol/L Potassium (3.5-5.1) mmol/L Chloride (98-107) mmol/L Carbon Dioxide (21-32) mmol/L Anion Gap (3-11) BUN (7-18) mg/dl Creatinine (0.6-1.2) mg/dl Est Cr Clr Drug Dosing ml/min Est GFR ( Amer) Est GFR (Non-Af Amer) BUN/Creatinine Ratio (10-20) Glucose (70-99) mg/dl Calcium (8.5-10.1) mg/dl Phosphorus Cancelled (2.5-4.9) mg/dl Magnesium Cancelled (1.8-2.4) mg/dl Total Bilirubin (0.2-1) mg/dl AST (15-37) U/L ALT (12-78) U/L Alkaline Phosphatase (45-117) U/L Troponin I (0-0.045) ng/ml Total Protein (6.4-8.2) gm/dl Albumin (3.4-5.0) gm/dl Globulin (2.5-4.0) gm/dl Albumin/Globulin Ratio (0.9-2) Hepatitis C Ab Screen (Neg) Blood Type B Positive Antibody Screen NEGATIVE Crossmatch See Detail 03/24/19 Range/Units 12:24 WBC (4.8-10.8) K/uL RBC (4.2-5.4) M/uL Hgb (12.0-16.0) g/dL Hct (37-47) % MCV (80-100) fL MCH (25-34) pg MCHC (32-36) g/dL RDW Std Deviation (36.4-46.3) fL RDW Coeff of Flori (11.5-14.5) % Plt Count (130-400) K/uL Immature Gran % (Auto) % Neut % (Auto) % Lymph % (Auto) % [place] % (Auto) % Eos % (Auto) % Baso % (Auto) % Immature Gran # (Auto) (0.00-0.02) K/uL Neut # (Auto) (1.4-6.5) K/uL Lymph # (Auto) (1.2-3.4) K/uL [place] # (Auto) (0.11-0.59) K/uL Eos # (Auto) (0-0.5) K/uL Baso # (Auto) (0-0.2) K/uL Absolute Nucleated RBC (0-0) K/uL Nucleated RBC % (auto) % Platelet Estimate (Normal) Polychromasia Anisocytosis Spherocytes Tear Drop Cells PT (9.0-12.0) Seconds INR (0.9-1.1) APTT (21.0-31.0) Seconds PTT Ratio Fibrinogen (184-400) mg/dl Sodium (136-145) mmol/L Potassium (3.5-5.1) mmol/L Chloride (98-107) mmol/L Carbon Dioxide (21-32) mmol/L Anion Gap (3-11) BUN (7-18) mg/dl Creatinine (0.6-1.2) mg/dl Est Cr Clr Drug Dosing ml/min Est GFR ( Amer) Est GFR (Non-Af Amer) BUN/Creatinine Ratio (10-20) Glucose (70-99) mg/dl Calcium (8.5-10.1) mg/dl Phosphorus (2.5-4.9) mg/dl Magnesium (1.8-2.4) mg/dl Total Bilirubin (0.2-1) mg/dl AST (15-37) U/L ALT (12-78) U/L Alkaline Phosphatase (45-117) U/L Troponin I (0-0.045) ng/ml Total Protein (6.4-8.2) gm/dl Albumin (3.4-5.0) gm/dl Globulin (2.5-4.0) gm/dl Albumin/Globulin Ratio (0.9-2) Hepatitis C Ab Screen Neg (Neg) Blood Type Antibody Screen Crossmatch ECG Data Attestation: I personally reviewed and interpreted this ECG as follows: Indication: + weakness Rate (beats per minute): 80 Rhythm: + normal sinus ECG Intervals/blocks: + Right Bundle branch block ECG ST segments: no ST elevation ECG Findings: + Other (no acute ischemia, QTC 468, QRS 138 ); no PACs and no PVCs Comparison ECG Date: from (02/06/19) Change: no significant change Blood Pressure Blood Pressure Findings: Elevated blood pressure Blood Pressure Disposition: Referred to patients primary care provider MDM Narrative The patient is a pleasant 63-year-old woman with a past medical history of metastatic breast cancer, stage IV on Faslodex, history of PE/DVT on Eliquis, history of thrombocytopenia possibly related to bone marrow infiltrative process versus ITP with recent baseline of platelets 10-30K presents emergency department for evaluation after having outpatient blood work showing severe anemia with hemoglobin of 5 in the setting of having epistaxis several days ago where she reports she was seen at [place] emergency department and was treated conservatively with nasal clamp and subsequent resolution of her nosebleed per HPI. Patient reports she did not have blood work at that time but was instructed to follow-up to get her blood work checked. Arrival the patient is chronically ill-appearing but no acute distress, afebrile stable vital signs. The patient does appear fatigued and pale. Initially the patient had no epistaxis however during her ED observation she spontaneously did develop a recurrence of her epistaxis in her right nare. Evaluation after clearing of clots with suction did not reveal a source that was visible anteriorly. The patient was treated with atomized TXA followed by TXA saturated rhino rocket with subsequent good effect and slow intermittent bloody use eventually resolving upon treatment with 3 units PRBCs and 1 unit platelets. EKG without overt acute ischemia. WBC within normal limits. H/H5 0.6/18.7 and platelets 15 in the setting of the patient's metastatic disease and recent epistaxis. INR 1.2. Fibrinogen 700. Chemistry without acidosis. Creatinine within normal limits however BUN is elevated at 41 similar to prior. Troponin negative/undetectable. Case was discussed with ENT on-call, Dr. Nam. Given patient's epistaxis is likely related to her TCP in the setting of her Elquis, reason for transfer would be if we did not have available blood products if patient were to need them. I did discuss with her blood bank and while we are currently without available platelets after the patient's use of her first unit ordered and use of the a second available unit for another patient -an order was confirmed to be delivered at 8 PM tonight. Moreover the blood bank can obtain platelets emergently if needed within 2 hours. Thus, given the patient has been steadily improving and is hemodynamically stable we did agree to admit the patient here for further management. Viv did arrive to evaluate the patient at the bedside. Eliquis to be held and Rhinorocket to remain until H/H and TCP improved. Unasyn ordered for abx ppx. Case was discussed with Dr. Kat, [facility] hospitalist, who will evaluate the patient for admission. Impression & Plan Epistaxis, Severe anemia, Thrombocythemia, Metastatic disease Discharge Plan Visit Data *Final* Discharge Date/Time: 03/24/19 18:18 Chief Complaint: Abnormal Labs/Diagnostic Testing ED Provider: Faisal Navarro Discharge Problem: Epistaxis, Severe anemia, Thrombocythemia, Metastatic disease Patient Disposition: Admitted As Inpatient Discharge Instructions Interventions: ED Discharge Assessment Last Done: 03/24/19 18:18 The scribe's documentation has been prepared under my direction and personally reviewed by me in its entirety. I confirm that the note above accurately reflects all work, treatment, procedures, and medical decision making performed by me.
[2019-03-24] MEDS ORDERED: CONSULT PHARMACY STA (19:57)
[2019-03-24] MEDS ORDERED: DEXTROSE 50% 50 ML SYRINGE IV PRN (19:57)
[2019-03-24] MEDS ORDERED: GLUCOSE 40% GEL 15 GM TUBE PO PRN (19:57)
[2019-03-24] MEDS ORDERED: GLUCOSE 10 TABS/TUBE PO PRN (19:57)
[2019-03-24] MEDS ORDERED: ONDANSETRON INJ 2 MG/ML 2 ML VIAL IV PRN (19:57)
[2019-03-24] MEDS ORDERED: CARBOHYDRATES FOR HYPOGLYCEMIA PO PRN (19:57)
[2019-03-24] MEDS ORDERED: GLUCAGON FOR INJ 1 MG VIAL SQ PRN (19:57)
[2019-03-24 20:31] LABS: Hematocrit (blood only) 27.8 % (37-47); Hemoglobin 8.7 g/dL (12.0-16.0); Mean Corpuscular Hemoglobin 26.8 pg (25-34); Mean Corpuscular Hgb Conc 31.3 g/dL (32-36); Mean Corpuscular Volume 85.5 fL (80-100); Nucleated RBC # (auto) 0.62 K/uL (0-0); Nucleated RBC % (auto) 9.9 %; Platelet Count 16 K/uL (130-400); Platelet Estimate SIGNIFIC DECREASED (Normal); RDW Coefficient of Variation 17.3 % (11.5-14.5); RDW Standard Deviation 53.7 fL (36.4-46.3); Red Blood Count 3.25 M/uL (4.2-5.4); White Blood Count 6.31 K/uL (4.8-10.8)
[2019-03-24] MEDS ORDERED: AMPICILLIN/SULBACTAM CONSULT ACTIVE PRN ×2 (20:45→21:00)
[2019-03-24] MEDS: OXYCODONE HCL IR 5 MG TAB (IMMEDIATE RELEASE) PO PRN (20:46)
[2019-03-24] MEDS: PANTOprazole 40 MG TAB PO SCH (21:45)
[2019-03-24] MEDS: INSULIN ASPART 100 UNITS/ML 3 ML PEN SC SCH (21:45)
[2019-03-24] MEDS: METOPROLOL SUCC 25MG EXT REL TAB PO SCH (21:45)
[2019-03-24] MEDS: INSULIN GLARGINE SOLOSTAR 100 UNITS/ML 3 ML PEN SC SCH (21:47)
--- NOTE | 2019-03-24 22:38 | Consultation Report ---
DATE OF CONSULTATION: 03/24/2019 OTOLARYNGOLOGY HEAD AND NECK SURGERY EMERGENCY ROOM CONSULTATION I have been asked by Dr. Faisal Navarro in the Emergency Room to evaluate this patient with severe right-sided epistaxis. The patient has a history of metastatic breast carcinoma to the lungs, bone, and possibly the liver and has had a several-week history of intermittent right greater than left, epistaxis and in fact went to the [facility] last week with severe epistaxis and she reports that she did not receive any meaningful care and did not have any laboratory examinations performed at that time. She was noted today to have severe thrombocytopenia with a platelet count of 15 and anemic with a hematocrit of 18.7. In addition, she has a history of ITP and is also on Eliquis for history of pulmonary emboli, likely related to her underlying malignancy. Dr. Navarro was able to stop the bleeding with what he said was a Rapid Rhino balloon soaked in TXA, but it does not look like a balloon, but rather a pack that might be Merocel. She states that the bleeding has improved, but she is still oozing and also feels as if there is a large clot within the back of her throat. She also has a history of morbid obesity and pickwickian syndrome, type 2 diabetes mellitus, dyslipidemia, right heart failure, deep venous thrombosis, rheumatoid arthritis, and depression. She is followed by Dr. Christophe Light in hematology/oncology. She was typed and crossed for 3 units of packed red blood cells as well as 1 pack of platelets and these are hanging while I am seeing her. She currently denies any lightheadedness, dizziness, shortness of breath, or chest pain. She is fatigued and is also asking when she can eat because she has not eaten since yesterday. ALLERGIES: GABAPENTIN WHICH CAUSES HALLUCINATIONS. MEDICATIONS: Eliquis, Rocio, Faslodex, hydroxyzine, insulin, metoprolol, omeprazole, oxycodone, torsemide, Xgeva, vitamin D3, duloxetine, hydromorphone p.r.n., Zofran p.r.n., OxyContin ER, tizanidine, and topiramate. PAST MEDICAL HISTORY: As above. PAST SURGICAL HISTORY: Status post ventral hernia repair x2. FAMILY HISTORY: Noncontributory. No bleeding disorders or malignant hyperthermia. SOCIAL HISTORY: The patient is accompanied by her . She denies any smoking history. She denies any alcohol abuse or illicit drug use. REVIEW OF SYSTEMS: The patient has had the above-mentioned right greater than left, epistaxis. She has some fatigue. She denies any lightheadedness, shortness of breath, or chest pain. She does have some gagging and feels as if she is choking on a blood clot. PHYSICAL EXAMINATION: GENERAL: This is a morbidly obese white elderly female in no acute distress who is very pale in her appearance. HEENT: She has what appears to be a Merocel pack in place with a string hanging down in front of her mouth. The pack is in place and there is only mild oozing, but no active bleeding. The left nasal cavity shows no bleeding. Bilateral external auditory canals and tympanic membranes are clear. Oral cavity and oropharyngeal examination reveals a large clot that is hanging down into the hypopharynx and abutting the base of her tongue and this was removed using a bayonet forceps. After removal of the large blood clot, she did not have any further bleeding posteriorly. NECK: Reveals no neck lymphadenopathy or thyroid nodularity, although it is difficult due to her obesity. Her trachea is midline. NEUROLOGIC: She is awake and alert and oriented x3. Cranial nerves II-XII are grossly intact. LABORATORY DATA: Laboratory examinations revealed the above-mentioned thrombocytopenia with a platelet count of 15 and anemia with a hematocrit of 18.7. IMPRESSION AND RECOMMENDATIONS: A 63-year-old female with metastatic breast cancer and thrombocytopenia related to her chemotherapy treatment as well as her ITP, who is also on anticoagulation for deep venous thrombosis and possible pulmonary emboli, whose right-sided epistaxis is currently controlled with some sort of packed mix with TXA. I have discussed this with Sandra Coppola, a physician embroidery assistant with [facility] and recommend that they try to get her hematocrit to 30 and her platelet count to 100,000 if possible and also hold her Eliquis. Once she meets these parameters, then I will likely remove the right-sided nasal packing and see if there is anything else I can do to stop the epistaxis. The patient and her as well as Valeria Coppola are in agreement with this plan. I will continue to monitor this patient with her blood work daily and then come back in to remove the once she meets the above-mentioned parameters or gets close to those parameters. If you have any questions regarding this consultation, if you need any further assistance, please do not hesitate to contact me.
[2019-03-25] MEDS: OXYCODONE HCL IR 5 MG TAB (IMMEDIATE RELEASE) PO PRN ×3 (01:34→22:48)
[2019-03-25] MEDS: AMPICILLIN/SULBACTAM SOD 3,000 MG in 0.9 % SODIUM CHLORIDE 100 ML IV SCH ×4 (01:35→20:02)
[2019-03-25 07:39] LABS: BUN Creatinine Ratio 31.1 (10-20); Calcium 9.8 mg/dl (8.5-10.1); Creatinine Clr Calc Pharmacy 67.1 ml/min; Est GFR (African American) 60.5; Est GFR (Non-African American) 52.2; Magnesium 1.9 mg/dl (1.8-2.4); Potassium 4.6 mmol/L (3.5-5.1)
[2019-03-25] MEDS ORDERED: OXYMETAZOLINE 0.05% 30 ML BTL NAE ONE (08:31)
[2019-03-25] MEDS: INSULIN GLARGINE SOLOSTAR 100 UNITS/ML 3 ML PEN SC SCH ×2 (08:42→20:58)
--- NOTE | 2019-03-25 09:08 | Hospitalist Progress Note ---
Date of Service March 25, 2019 Assessment & Plan (1) Acute on chronic respiratory failure with hypoxia and hypercapnia: (2) Epistaxis: (3) Severe anemia: (4) Thrombocythemia: This is a 63-year-old female who has significant past medical history of metastatic breast cancer to bone, T2 DM, HLD, obesity hypoventilation syndrome, right heart failure, chronic ITP, history of DVT anticoagulated on Eliquis, rheumatoid arthritis, depression who presents to ED at the recommendation of Dr. Light hematology oncology secondary to abnormal labs and epistaxis. In ED a nasal packing was placed trans-examic acid and bleeding has ceased. She did have a posterior pharynx blood clot that was removed by ENT. RN reported another clot today-Rec notifying ENT In ED patient remained hemodynamically stable. Her H&H was 5.6 and 18.7 with platelet count of 15 BUN/creatinine 41 and 1.15, glucose 184, alk phos 121, albumin 2.4, corrected calcium 11.2, mag 1.7 She was transfused 2 units PRBC. Keep in PCU Transfuse PRBC and pack of platelets trend cbc monitor volume status closely Per ENT DO NOT REMOVE NASAL PACKING until Hct > 30L and PLT > 100 at that time ENT will remove dressing and determine next course of action Hold Eliquis continue IV unasyn for prophylaxis (5) CKD (chronic kidney disease), stage III: Follow BMP (6) Metastatic breast cancer: Metastatic breast cancer to bone, lung Follows Dr. Light Receiving Xgeva and Faslodex -treatments held given thrombocytopenia oxycodone for metastatic pain - verified in pdmp (7) Right-sided heart failure: Chronic right sided heart failure Echo 09/04/2018 revealed normal LVEF, grade 1 diastolic dysfunction, right ventricular cavity dilated with diffuse right ventricular hypokinesis Monitor volume status closely given transfusion Patient prescribed O2 2 L at home daily weight strict I and O (8) TYE (obstructive sleep apnea): CPAP/BiPAP at bedtime Currently unable to tolerate given nasal packing Continue oxygen via oxygen mask (9) DM type 2 (diabetes mellitus, type 2): 01/07/19 A1c 9.2 Lantus/NovoLog per protocol Repeat A1c in a.m. (10) History of DVT (deep vein thrombosis): History of DVT and also with hypercoagulable state given metastatic carcinoma Hold Eliquis in setting of severe anemia and thrombocytopenia (11) Rheumatoid arthritis: Patient takes oxycodone 5 mg every 4 hours Verified with PDMP (12) DVT prophylaxis: SCD/TEDS Contraindicated in setting of severe anemia, thrombocytopenia Hold Eliquis Disposition: PCU Follow-up: PCP Dr. Larry upon discharge labs checked ROS-No Headache, No Visual Changes, No Nausea, No Vomiting, No Fever, No Chills, No Neck Pain or Stiffness, No Chest Pain, No Palpitations, No SOB, No TOMAS, No Cough, No Sputum, No Wheezing, No Abdominal Pain, No Diarrhea, No Hematemesis, No Hemoptysis, No Unexpected Weight Loss, No Flank pain, No Melena, No Hematochezia, No Frequency, No Urgency, No Burning, No Hematuria, No Rashes, No Diaphoresis. Appetite is Normal Physical Exam Gen-AAO x 3, NAD, Afebrile, Obese Head-NCAT, EOMI, PERRLA, Anicteric Sclera, No Posterior Pharyngeal Erythema, nasal Packing in Place Neck-Supple, No JVD, No Thyromegaly, No Masses, No LAD, No Bruits Lungs-Clear to Auscultation Bilaterally, No Rales, No Rhonchi, No Wheezing, No Crepitus Chest-No S4, +S1, +S2, No S3, No Murmurs, No Rubs, No Gallops, No Ectopy Abdomen-Soft, Bowel Sounds Present, Non Tender, Non Distended, No Hepatomegaly, No Splenomegaly, No Palpable Masses, No Rebound, No Rigidity, No Guarding Musculoskeletal-Full Range of Motion Bilaterally, No CVAT Extremities-No Cyanosis, No Clubbing, No Edema Nuero-Cranial Nerves II-XII grossly intact, Motor WNL, DTRs WNL, Strength WNL, Non Focal Psych-Normal Mood Results & Data Vital Signs (Past 12 Hours) Vital Signs Temp Pulse Pulse Resp BP BP Pulse Ox 03/25/19 04:38 36.8 C 84 18 149/79 H 89 L 03/25/19 01:23 36.4 C L 78 20 135/76 96 03/25/19 00:25 36.6 C 78 18 129/61 95 03/25/19 00:00 84 03/24/19 23:55 36.8 C 86 20 124/62 96 03/24/19 23:42 36.8 C 78 20 121/71 97 03/24/19 23:15 36.8 C 82 20 123/74 97 03/24/19 22:00 36.6 C 86 23 143/75 H 100 03/24/19 21:45 36.7 C 90 18 132/77 97 03/24/19 21:27 36.5 C 86 22 134/75 100
[2019-03-25] MEDS ORDERED: OXYMETAZOLINE 0.05% 30 ML BTL ONE (09:12)
[2019-03-25 09:43] LABS: Hematocrit (blood only) 28.8 % (37-47); Hemoglobin 8.8 g/dL (12.0-16.0); Mean Corpuscular Hemoglobin 26.9 pg (25-34); Mean Corpuscular Hgb Conc 30.6 g/dL (32-36); Mean Corpuscular Volume 88.1 fL (80-100); Nucleated RBC # (auto) 0.94 K/uL (0-0); Nucleated RBC % (auto) 13.3 %; Platelet Count 32 K/uL (130-400); RDW Coefficient of Variation 17.8 % (11.5-14.5); RDW Standard Deviation 57.1 fL (36.4-46.3); Red Blood Count 3.27 M/uL (4.2-5.4); White Blood Count 7.05 K/uL (4.8-10.8)
[2019-03-25 09:46] LABS: Anisocytosis Present; Basophilic Stippling 1+; Basophils # (auto) 0.07 K/uL (0-0.2); Eosinophils # (auto) 0.21 K/uL (0-0.5); Immature Granulocytes # (auto) 0.45 K/uL (0.00-0.02); Immature Granulocytes % (auto) 6.4 %; Lymphocytes # (auto) 0.34 K/uL (1.2-3.4); Lymphocytes % (auto) 4.8 %; Monocytes # (auto) 0.34 K/uL (0.11-0.59); Monocytes % (auto) 4.8 %; Neutrophils # (auto) 5.64 K/uL (1.4-6.5); Platelet Estimate SIGNIFIC DECREASED (Normal); Polychromasia 1+
[2019-03-25] MEDS: INSULIN ASPART 100 UNITS/ML 3 ML PEN SC SCH ×4 (09:46→20:59)
[2019-03-25 10:31] LABS: Albumin Level 2.4 gm/dl (3.4-5.0); BUN Creatinine Ratio 30.1 (10-20); Calcium 9.1 mg/dl (8.5-10.1); Creatinine Clr Calc Pharmacy 63.2 ml/min; Est GFR (African American) 56.3; Est GFR (Non-African American) 48.5; Potassium 5.1 mmol/L (3.5-5.1)
[2019-03-25 10:34] LABS: Albumin Globulin Ratio 0.5 (0.9-2); Bilirubin,Total 0.5 mg/dl (0.2-1); Globulin 4.9 gm/dl (2.5-4.0); Total Protein 7.3 gm/dl (6.4-8.2)
[2019-03-25] MEDS: PANTOprazole 40 MG TAB PO SCH ×2 (10:44→19:57)
[2019-03-25] MEDS: METOPROLOL SUCC 25MG EXT REL TAB PO SCH ×2 (10:44→19:57)
[2019-03-25] MEDS: FEXOFENADINE HCL 180 MG TAB PO SCH (10:44)
[2019-03-25 11:40] LABS: Estimated Average Glucose 120 mg/dl; Hemoglobin A1C 5.8 % (4.5-5.6)
--- NOTE | 2019-03-25 11:56 | Progress Note ---
DATE: 03/25/2019 HISTORY OF PRESENT ILLNESS: I saw this patient yesterday in the Emergency Room in consultation for severe right-sided epistaxis associated with thrombocytopenia. She was doing well up until this morning where her nurse called me and stated that she started to have some more bleeding with an estimated blood loss of 5-10 mL. I was in the middle of operating at our surgery center and I asked the nurse to administer Afrin nasal spray 2 sprays in each nostril and hold pressure until I could get there. As soon as I was done with my case, I went to go see the patient. Upon coming to the patient's room, she had a large clot within her oral cavity and oropharynx, which was suctioned and removed using bayonet forceps. This clot was approximately 1-2 cups in volume. Her previous placed packed by Dr. Navarro in the Emergency Room was shelter out and therefore this was removed. Direct pressure was applied to the nasal cavity for 5 minutes. After allowing adequate time for hemostasis, the pressure was relieved and the patient's right nasal cavity was suctioned. It appeared that the patient was bleeding from the right anterior septum briskly. Topical lidocaine and Afrin were administered to the right nasal cavity and pressure applied. After allowing adequate time for vasoconstriction and anesthesia, attempts at cauterizing the anterior septum were undertaken, but because of the patient's thrombocytopenia, hemostasis could not be achieved. Therefore, an 8 cm Merocel sponge was placed into the right nasal cavity and then expanded using topical lidocaine and Afrin. This resulted in cessation of the bleeding. Her oral cavity and oropharynx were inspected after this place of this pack and there was no further bloody postnasal drip. The patient tolerated the procedure well and the total estimated blood loss was 50 mL. I did discuss this case with Dr. Sena who is the hospitalist of the day. I recommended that he needs to further administer platelets to get her platelet count hopefully above 100,000 and also consider another 1 unit of packed red blood cells to try to get her hematocrit to 30. Once these parameters are met, I will try to take out this pack. Anticipated total time of the pack being in place will be 2-5 days, depending on her blood counts. If you need any further assistance regarding this patient, please do not hesitate to contact me.
[2019-03-25] MEDS ORDERED: MoRPHine SULFATE 2 MG/ML CARP IV PRN (15:59)
[2019-03-25 17:21] LABS: Hematocrit (blood only) 28.9 % (37-47); Hemoglobin 8.7 g/dL (12.0-16.0)
[2019-03-26 00:54] LABS: Hematocrit (blood only) 28.5 % (37-47); Hemoglobin 8.5 g/dL (12.0-16.0)
[2019-03-26] MEDS: AMPICILLIN/SULBACTAM SOD 3,000 MG in 0.9 % SODIUM CHLORIDE 100 ML IV SCH ×4 (01:57→19:52)
[2019-03-26 04:27] LABS: Base Excess ABG -1.8 mEq/L (-9-1.8); HCO3 ABG 32 mmol/L (19-24); PCO2 ABG 131 mmHg (35-46); PO2 ABG 83 mm/Hg (80-95)
[2019-03-26 04:31] LABS: Allen Test POS (Pos)
[2019-03-26] MEDS ORDERED: RAPID SEQUENCE INDUCTION BAG ONE (04:38)
[2019-03-26 04:40] LABS: Mean Corpuscular Hgb Conc 29.3 g/dL (32-36)
[2019-03-26] MEDS ORDERED: KETAMINE HCL INJ 50 MG/ML 10 ML VIAL ONE (04:46)
[2019-03-26 04:48] LABS: Alanine Aminotransferase 14 U/L (12-78); Albumin Level 2.6 gm/dl (3.4-5.0); Aspartate Aminotransferase 36 U/L (15-37); BUN Creatinine Ratio 28.2 (10-20); Blood Urea Nitrogen 41 mg/dl (7-18); Calcium 8.7 mg/dl (8.5-10.1); Carbon Dioxide 35 mmol/L (21-32); Chloride 107 mmol/L (98-107); Creatinine Clr Calc Pharmacy 51.8 ml/min; Est GFR (African American) 44.3; Est GFR (Non-African American) 38.2; Glucose 191 mg/dl (70-99); Magnesium 2.1 mg/dl (1.8-2.4); Potassium 5.3 mmol/L (3.5-5.1); Sodium 141 mmol/L (136-145)
[2019-03-26 04:53] LABS: Albumin Globulin Ratio 0.5 (0.9-2); Alkaline Phosphatase 136 U/L (45-117); Bilirubin,Total 0.5 mg/dl (0.2-1); Total Protein 7.6 gm/dl (6.4-8.2); Troponin I < 0.015 ng/ml (0-0.045)
[2019-03-26] MEDS ORDERED: ALBUT/IPRATROP 3MG/0.5MG NEB 3 ML VIAL NEB STA (04:53)
[2019-03-26] MEDS ORDERED: PROPOFOL 1,000 MG/100 ML VIAL IV PRN (04:56)
[2019-03-26 05:00] LABS: Hematocrit (blood only) 28.3 % (37-47); Hemoglobin 8.3 g/dL (12.0-16.0); Mean Corpuscular Hemoglobin 26.3 pg (25-34); Mean Corpuscular Volume 89.6 fL (80-100); RDW Standard Deviation 59.4 fL (36.4-46.3); Red Blood Count 3.16 M/uL (4.2-5.4); White Blood Count 9.07 K/uL (4.8-10.8)
[2019-03-26 05:01] LABS: Basophils # (auto) 0.05 K/uL (0-0.2); Basophils % (auto) 0.6 %; Eosinophils % (auto) 2.2 %; Hypochromasia Present; Immature Granulocytes # (auto) 0.65 K/uL (0.00-0.02); Immature Granulocytes % (auto) 7.2 %; Lymphocytes # (auto) 0.43 K/uL (1.2-3.4); Lymphocytes % (auto) 4.7 %; Monocytes % (auto) 6.6 %; Neutrophils # (auto) 7.14 K/uL (1.4-6.5); Neutrophils % (auto) 78.7 %; Nucleated RBC # (auto) 0.88 K/uL (0-0); Nucleated RBC % (auto) 9.7 %; Platelet Count 36 K/uL (130-400); Platelet Estimate SIGNIFIC DECREASED (Normal); Polychromasia 1+
--- NOTE | 2019-03-26 05:13 | Emergency Department Note ---
ED Visit Note Was called emergently to bedside by Dr. linette chamberlain and adán from the ICU for intubation. Patient has thrombocytopenia with platelets of 7 and epistaxis with packing in place and was found to be unresponsive. CO2 was 130. Recent potassium was slightly elevated at 5.5. EXAM: GENERAL: Ill-appearing lying in bed, nasal packing in place BiPAP in place EYE EXAM: normal conjunctiva OROPHARYNX: Dry blood in posterior pharynx with poor dentition NECK: supple, no nuchal rigidity, no adenopathy, non-tender LUNGS: Coarse bilaterally normal chest wall mechanics HEART: no murmurs, S1 normal and S2 normal ABDOMEN: Obese and nontender UPPER EXTREMITIES: upper extremities are grossly normal. NEURO EXAM: Awakens to loud voice and soft sternal rub oriented to person not place and falls asleep extremely quickly Patient does awake to sternal rub she falls back asleep quickly and becomes fairly obtunded. With her CO2 of 130 pH 7.0 and her being a full code per report decision was made at bedside emergently to intubate her. Chose ketamine in light of the recent epistaxis as she was already packed for GERD any additi onal bleeding would not occur and due to her body habitus this would give me a partial look at the airway without paralyzation. Succs was used in light of the potassium at 5.3 in case we ran into any significant difficulty with bleeding secondary to the low platelets although I favor unlikely with the packing. EM PROCEDURE NOTE - Endotracheal Intubation PROCEDURE NOTE: Informed consent was not obtained by the patient as she was obtunded. Verify Correct Patient: yes Procedure: Endotracheal intubation Indication: Airway protection/hypercarbic respiratory failure The procedure was done emergently. Description of the Procedure: The patient was seen and properly identified. The patient was pre-oxygenated and intubated after rapid sequence induction with meds: Succinylcholine and ketamine. Intubation was performed using a curved blade and a 8.0 cuffed endotracheal tube. The tube was visualized going through the cords and secured with the 25cm rosibel at the lips. The patient had good bilateral breath sounds in the axillae with good chest rise. Proper ET tube placement was confirmed by end tidal CO2 detector. The patient tolerated the procedure well. Chest x-ray confirmed positioning and tube was pulled back to 25 cm. .
--- NOTE | 2019-03-26 05:25 | Critical Care Consultation ---
Date of Consultation March 26, 2019 Assessment & Plan (1) Acute on chronic respiratory failure with hypoxia and hypercapnia: Reason Critically Ill: 63-year-old female initially admitted for epistaxis who developed hypoxic hypercapnic respiratory failure requiring intubation Epistaxispatient currently has bilateral nasal packings, no longer bleeding -Received platelet and RBC infusions -ENT managing, will follow up recs -Per ENT do not remove nasal packing until hematocrit greater than 30 and platelet greater than 100 -Holding Eliquis Neuro - Altered mental statuslikely attributed to hypercapnia versus hyperammonemia, CO2 130 on blood gas, ammonia 120 -CT head negative for acute process -Patient mental status improved with correction of CO2 and now following commands, see respiratory management below -Started on lactulose 4 times daily -Continue to monitor Cardiac - Chronic right-sided heart failureecho on 09/04 showed normal EF with grade 1 diastolic dysfunction right ventricular cavity dilated with diffuse right ventricular hypokinesis -Patient currently subsequently moved (from -Is on 2 L O2 at home -Strict I's and O's, daily weights -Avoid volume overload History of DVT, was on Eliquis now holding for epistaxis Respiratory - Hypoxic hypercapnic respiratory failurepatient became significantly hypercapnic with CO2 of 130 and pH of 7.00 and was obtunded, was intubated -Per history, patient wears BiPAP at night for OHS and TYE and is chronically on 2 L O2, was unable to wear on this admission due to nasal packing and epistaxis -CXR showed no obvious infiltrates -Vent settings AC VC 24/380/5/60 percent, repeat AB.23/73/108/30; we will continue to trend ABGs and adjust vent -Continue nebs, pulmonary toilet GI - N.p.o. RENAL/LYTES - KARLIE on CKDcreatinine elevated 1.45 this a.m., baseline 1.12 -Would caution with fluid resuscitation given diagnosis of heart failure in the setting of acute respiratory failure Avoid nephrotoxins -Monitor creatinine with routine BMPs -Strict I's and O's - Foleystrict I's and O's ENDO - DM type IIcontinue glargine/aspart -ICU hyperglycemic protocol Metastatic breast cancermetastatic breast cancer to bone and lung -patient follows Dr. Light, receiving Xgeva and Faslodex but currently holding due to thrombocytopenia HEME - Thrombocytopenialast platelet count 36, patient received multiple platelet transfusions -Patient not currently bleeding, will trend and transfuse if necessary Anemialikely attributed to cancer versus acute blood loss in the setting of epistaxis -H&H stable this a.m., continue to trend and transfuse if necessary ID - Prophylactic IV Unasyn LINES/IV ACCESS - Peripheral IVs, ETT DVT PROPHYLAXIS - SCDs, holding anticoagulation for epistaxis I have personally spent 60 minutes of critical care time in the direct management of this patient. This is a life/limb threatening event. This includes time spent evaluating patient, direct bedside care, chart review, placing orders, interpretation of diagnostic studies, discussion with consultants, thaddeus gar, and family members, as well as other required patient management activities. This time is exclusive of all separately billable procedures, and teaching time and separate from and in addition to any other critical care service time. Thank you for allowing us to participate in the care of this patient. Please refer to my attending physician's documentation for any further recommendations. (2) Hyperammonemia: (3) Thrombocytopenia: (4) Anemia: (5) Obesity hypoventilation syndrome: (6) Metastatic breast cancer: (7) CKD (chronic kidney disease), stage III: (8) DM type 2 (diabetes mellitus, type 2): (9) Epistaxis: Supervising Physician Co-Signing Physician Notes Dr. Meléndez was the resident-physician during care of patient. I separately evaluated patient for crook portions of the history and the exam. I was present during the critical portion of medical decision making, and I discussed the case with the resident. I generally agree with the findings and plan except for any additions/exceptions noted. This is a 63-year-old female with a past complex medical history including OHS/TYE, metastatic breast cancer to the bone, idiopathic thrombocytopenic purpura, CKD and secondary pulmonary hypertension (WHO group II and III) who is here in the hospital due to epistaxis and subsequent hypercapnic respiratory failure. This morning she was extremely agitated on a short trial of spontaneous breathing trial and began to desaturate. We will diurese her today with 40 mg of twice daily IV Lasix as her BNP was profoundly elevated and she is giving the appearance of volume overload. We will keep an eye on her kidney function as she does have CKD and her creatinine has creeped up a little bit. Continue her on Unasyn for the nasal packing that she had earlier in the admission related to her epistaxis and thrombocytopenia. She is status post platelet transfusion. Appreciate ENTs assistance. She does have a mildly elevated pro-Donnie as well which will repeat tomorrow. Urine and blood cultures have been ordered as well. She is to continue on the ventilator at this time with a repeat spontaneous breathing trial tomorrow. If we extubate her, we will likely extubate her to BiPAP directly. I have personally spent 35 minutes of critical care time in the direct management of this patient. This is a life/limb threatening event. This includes time spent evaluating patient, direct bedside care, chart review, placing orders, interpretation of diagnostic studies, discussion with consultants, patient, and/or family members regarding treatment decisions, as well as other required patient management activities. This time is exclusive of all separately billable procedures, and teaching time and separate from and in addition to any other critical care service time. History of Present Illness Attending Physician: Frandy Sena DO History of Present Illness Patient is a 63-year-old female with history of metastatic breast cancer to bones and lung, chronic right-sided heart failure, OHS, CKD, DM type II who presented on 03/24 for epistaxis requiring packing. She was thrombocytopenic and anemic and was transfused with platelets and RBCs. Patient was unable to wear her BiPAP due to nasal packing and risk for rebleeding. Last night I was contacted by the primary team was concerned that the patient was no longer arousing to stimulation. An ABG revealed that the patient's CO2 was 130 with pH of 7.00. Patient was temporarily placed on a BiPAP and transported to the ICU where she was intubated. Repeat gas following intubation was significantly improved and patient has since begun to arouse and follows commands. She was taken for CT of head which was negative for acute process. Ammonia level was found to be elevated at 120 patient started on lactulose. Patient to remain in ICU for now for further management. Allergies Allergy/AdvReac Type Severity Reaction Status Date / Time gabapentin AdvReac Hallucinati Verified 03/24/19 14:13 ng Home Medications Home Medications Medication Instructions Recorded Confirmed Type fexofenadine [Rocio Allergy] 180 mg PO QAM 03/05/18 03/24/19 History Lantus Solostar U-100 Insulin See Rx Instructions .ROUTE 02/01/19 12/10/19 Rx .COMPLEX #15 ml metoprolol succinate 25 mg PO BID #60 ea 05/16/18 03/24/19 Rx Eliquis 5 mg PO BID 01/06/19 03/24/19 History Xgeva 120 mg SUBCUT MONTHLY 01/06/19 03/24/19 History fulvestrant [Faslodex] 250 mg IM Q14D 01/06/19 03/24/19 History hydroxyzine HCl 25 mg PO BID 01/06/19 03/24/19 History omeprazole 20 mg PO BID 01/06/19 03/24/19 History torsemide 20 mg PO DAILY PRN 01/06/19 03/24/19 History insulin aspart U-100 [Novolog 0 unit SUBCUT UD 03/24/19 03/24/19 History Flexpen U-100 Insulin] oxycodone 5 mg PO Q4 03/24/19 03/24/19 History Patient History Medical History ATN (acute tubular necrosis) (Resolved) Breast cancer metastasized to bone (Inactive) Chronic kidney disease (Inactive) CKD (chronic kidney disease), stage III (Chronic) DM type 2 (diabetes mellitus, type 2) (Chronic) History of DVT (deep vein thrombosis) (Chronic) Hyperlipidemia (Chronic) Hypertension (Chronic) Irritable bowel syndrome (Chronic) Metastatic breast cancer (Chronic) Obesity hypoventilation syndrome (Chronic) TYE (obstructive sleep apnea) (Chronic) Osteoarthritis (Chronic) Rheumatoid arthritis (Inactive) Rheumatoid arthritis (Chronic) Right-sided heart failure (Chronic) Thrombocytopenia (Chronic) Surgical History History of hernia repair (Chronic) Family History Mother Stroke Diabetes Father Diabetes Social History Preferred Language: Nigerien Communication Ability: Effective Visual Impairment: No Limitations Contract Administrator Required: No Beliefs That Will Affect Care: Advent Advent Beliefs: Scientology marital status: Current Living Situation: Spouse Other Information That Helps Us Care for You: No Feels Safe at Home: Yes Safety Concerns: Feels Safe At This Time Smoking Status: Never smoker Second Hand Exposure: No ; Hx Alcohol Use: No Hx Substance Use: No Review of Systems Review of Systems: Unobtainable due to cognitive status and Unobtainable due to endotracheal tube Physical Exam Eyes: PERRL, conjunctivae normal, anicteric sclerae ENMT: external ear and nose normal, oropharynx normal Neck: trachea midline, no thyromegaly Respiratory: symmetric chest movement Auscultation: + rhonchi Cardiovascular: Rate/Rhythm: regular rate and regular rhythm Heart Sounds: normal S1 and normal S2 Vessels: no JVD Extremities: normal capillary refill; no edema Gastrointestinal (Abdomen): Abdomen obese, normoactive bowel sounds Neurologic: PERRLA, symmetrical movement, no facial palsy, obtunded Psychiatric: Unable to assess Genitourinary: Indwelling Ta catheter present Results & Data Vital Signs (Past 12 Hours) Vital Signs Temp Pulse Pulse Resp BP Pulse Ox 03/26/19 03:27 35.9 C L 76 22 125/68 77 L 03/25/19 22:56 36.5 C 85 26 H 126/69 91 03/25/19 19:54 36.8 C 77 18 143/77 H 92 03/25/19 18:57 94 H Coding Level of Care Code Critical Care 1st 30-74 mins Diagnoses Acute on chronic respiratory failure with hypoxia and hypercapnia J96.21; J96.22 Hyperammonemia E72.20 Thrombocytopenia D69.6 Anemia D64.9 Anemia type: unspecified type Obesity hypoventilation syndrome E66.2 Metastatic breast cancer C50.919 CKD (chronic kidney disease), stage III N18.3 DM type 2 (diabetes mellitus, type 2) E11.9 Epistaxis R04.0 Time Spent (min) 35 (1) Anemia Anemia type: unspecified type Qualified Code(s): D64.9 - Anemia, unspecified
[2019-03-26 05:34] LABS: iSTAT Arterial Blood Gas HCO3 30 meg/L (19-24); iSTAT Arterial Blood Gas pCO2 73 mmHg (35-46); iSTAT Arterial Blood Gas pH 7.23 (7.35-7.45); iSTAT Arterial Blood Gas pO2 108 mmHg (80-95); iSTAT Carbon Dioxide 32 mEq/l (24-31); iSTAT FiO2 60 %; iSTAT Site L Radial
--- NOTE | 2019-03-26 06:18 | XRay Report ---
XR KUB/Abdomen 1 view CLINICAL HISTORY: OG tube tube position COMPARISON STUDY: 05/09/2018 FINDINGS: Nasogastric tube placed in the gastric antrum. IMPRESSION: Nasogastric tube placed in the gastric antrum The above report was generated using voice recognition software. It may contain grammatical, syntax or spelling errors. Electronically signed by: Pratik Mora M.D. 03/26/2019 6:17 AM
--- NOTE | 2019-03-26 06:18 | CT Scan Report ---
CT head/brain wo con CT DOSE: 821.00 mGycm HISTORY: Mental status change Altered mental status TECHNIQUE: Multiaxial CT images of the head were performed without the use of intravenous contrast. A dose lowering technique was utilized adhering to the principles of ALARA. Comparison: 05/09/2018 Findings: Moderate mucosal thickening of the maxillary sinuses. Edematous changes the nasal turbinate s. Tubes within the oropharynx suggesting probable endotracheal tube and nasogastric tube. The calvarium and skull base are intact. The ventricles and sulci are within normal limits. There is no mass, hematoma, midline shift, or acute infarct. Impression: 1. No acute intracranial abnormality. 2. Extracranial soft tissue edema. The above report was generated using voice recognition software. It may contain grammatical, syntax or spelling errors. Electronically signed by: Pratik Mora M.D. 03/26/2019 6:16 AM
--- NOTE | 2019-03-26 06:27 | XRay Report ---
XR chest 1V portable CLINICAL HISTORY: intubation tube position COMPARISON STUDY: 02/05/2019 FINDINGS: Endotracheal tube 3 cm above the kevin. Mild cardiac enlargement. Prominent pulmonary vasculature. Probable subsegmental atelectasis right base. IMPRESSION: 1. Endotracheal tube 3 cm above the kevin. 2. Atelectasis right base. Multiple old bilateral rib fractures. The above report was generated using voice recognition software. It may contain grammatical, syntax or spelling errors. Electronically signed by: Pratik Mora M.D. 03/26/2019 6:26 AM
[2019-03-26] MEDS: INSULIN ASPART 100 UNITS/ML 3 ML PEN SC SCH ×4 (07:50→23:50)
[2019-03-26] MEDS: LACTULOSE SYRUP 30 GM/45 ML UDP PO SCH ×4 (07:52→20:25)
[2019-03-26] MEDS: FEXOFENADINE HCL 180 MG TAB PO SCH (07:52)
[2019-03-26] MEDS: PANTOprazole 40 MG TAB PO SCH (07:53)
[2019-03-26] MEDS: METOPROLOL SUCC 25MG EXT REL TAB PO SCH (07:53)
[2019-03-26] MEDS: INSULIN GLARGINE SOLOSTAR 100 UNITS/ML 3 ML PEN SC SCH ×2 (07:57→20:25)
[2019-03-26] MEDS: fentaNYL DRIP 1,250 MCG/250 ML BAG IV SCH ×2 (08:20→19:51)
[2019-03-26] MEDS ORDERED: FENTANYL BOLUS FROM BAG IV PRN (08:40)
--- NOTE | 2019-03-26 09:33 | Hospitalist Progress Note ---
Date of Service March 26, 2019 Assessment & Plan (1) Respiratory failure requiring intubation: (2) Acute on chronic respiratory failure with hypoxia and hypercapnia: (3) Epistaxis: (4) Severe anemia: (5) Thrombocythemia: This is a 63-year-old female who has significant past medical history of metastatic breast cancer to bone, T2 DM, HLD, obesity hypoventilation syndrome, right heart failure, chronic ITP, history of DVT anticoagulated on Eliquis, rheumatoid arthritis, depression who presents to ED at the recommendation of Dr. Light hematology oncology secondary to abnormal labs and epistaxis. In ED a nasal packing was placed trans-examic acid and bleeding has ceased. She did have a posterior pharynx blood clot that was removed by ENT. RN reported another clot today-Rec notifying ENT In ED patient remained hemodynamically stable. Her H&H was 5.6 and 18.7 with platelet count of 15 BUN/creatinine 41 and 1.15, glucose 184, alk phos 121, albumin 2.4, corrected calcium 11.2, mag 1.7 She was transfused 2 units PRBC. Keep in ICU-Patient was intubated this am sec to High NH3 and PCO2-Was unable to wear BIPAP sec to nasal packing so her PCO2 lexy Transfuse PRBC and pack of platelets as needed trend cbc monitor volume status closely Per ENT DO NOT REMOVE NASAL PACKING until Hct > 30L and PLT > 100 at that time ENT will remove dressing and determine next course of action Hold Eliquis continue IV unasyn for prophylaxis (6) CKD (chronic kidney disease), stage III: Follow BMP (7) Metastatic breast cancer: Metastatic breast cancer to bone, lung Follows Dr. Light Receiving Xgeva and Faslodex -treatments held given thrombocytopenia oxycodone for metastatic pain - verified in pdmp (8) Right-sided heart failure: Chronic right sided heart failure Echo 09/04/2018 revealed normal LVEF, grade 1 diastolic dysfunction, right ventricular cavity dilated with diffuse right ventricular hypokinesis Monitor volume status closely given transfusion Patient prescribed O2 2 L at home daily weight strict I and O (9) Hyperammonemia: Lactulose per critical care (10) TYE (obstructive sleep apnea): CPAP/BiPAP at bedtime if able when extubated Currently unable to tolerate given nasal packing Continue oxygen via oxygen mask (11) DM type 2 (diabetes mellitus, type 2): 01/07/19 A1c 9.2 Lantus/NovoLog per protocol Repeat A1c in a.m. (12) History of DVT (deep vein thrombosis): History of DVT and also with hypercoagulable state given metastatic carcinoma Hold Eliquis in setting of severe anemia and thrombocytopenia (13) Rheumatoid arthritis: Patient takes oxycodone 5 mg every 4 hours Verified with PDMP (14) DVT prophylaxis: SCD/TEDS Contraindicated in setting of severe anemia, thrombocytopenia Hold Eliquis Disposition: Vented in ICU Follow-up: PCP Dr. Larry upon discharge labs checked ROS-Intubate Physical Exam Gen-Awake and Alert, NAD, Afebrile, Obese Head-NCAT, EOMI, PERRLA, Anicteric Sclera, No Posterior Pharyngeal Erythema, nasal Packing in Place c blood Neck-Supple, No JVD, No Thyromegaly, No Masses, No LAD, No Bruits Lungs-Clear to Auscultation Bilaterally, No Rales, No Rhonchi, No Wheezing, No Crepitus Chest-No S4, +S1, +S2, No S3, No Murmurs, No Rubs, No Gallops, No Ectopy Abdomen-Soft, Bowel Sounds Present, Non Tender, Non Distended, No Hepatomegaly, No Splenomegaly, No Palpable Masses, No Rebound, No Rigidity, No Guarding Musculoskeletal-Full Range of Motion Bilaterally, No CVAT Extremities-No Cyanosis, No Clubbing, No Edema Nuero-Cranial Nerves II-XII grossly intact, Motor WNL, DTRs WNL, Strength WNL, Non Focal Psych-Normal Mood Results & Data Vital Signs (Past 12 Hours) Vital Signs Temp Pulse Pulse Resp BP BP Pulse Ox 03/26/19 09:10 64 97 03/26/19 09:00 68 93 03/26/19 08:50 67 95 03/26/19 08:43 67 135/77 96 03/26/19 08:40 70 95 03/26/19 08:33 71 135/77 96 03/26/19 08:30 71 97 03/26/19 08:24 70 141/82 H 96 03/26/19 08:20 66 97 03/26/19 08:14 84/56 L 96 03/26/19 08:10 91 03/26/19 08:00 69 95 03/26/19 07:50 71 95 03/26/19 07:43 71 159/85 H 94 03/26/19 07:40 37.1 C 71 98 03/26/19 07:31 71 92 03/26/19 07:29 76 122/61 93 03/26/19 07:20 66 25 H 94 03/26/19 07:13 71 93/87 L 94 03/26/19 07:10 68 92 03/26/19 07:00 66 92 03/26/19 06:32 69 72/54 L 89 L 03/26/19 06:31 66 93 03/26/19 06:29 67 65/45 L 91 03/26/19 06:20 67 72/54 L 92 03/26/19 06:15 66 92 03/26/19 06:10 66 92 03/26/19 06:03 61 90/56 L 95 03/26/19 05:54 66 03/26/19 05:20 148/83 H 98 03/26/19 05:18 133/77 99 03/26/19 05:15 63 129/83 98 03/26/19 05:10 64 24 98 03/26/19 05:05 61 108/74 99 03/26/19 05:02 60 22 119/73 99 03/26/19 05:00 62 22 114/69 99 03/26/19 04:57 60 21 106/65 99 03/26/19 04:55 58 L 13 104/58 L 99 03/26/19 04:52 63 19 105/62 100 03/26/19 04:50 29 H 107/67 99 03/26/19 04:47 71 16 149/89 H 99 03/26/19 04:46 67 03/26/19 04:30 67 03/26/19 04:15 71 03/26/19 04:00 74 03/26/19 03:45 71 03/26/19 03:30 74 03/26/19 03:27 35.9 C L 76 22 125/68 77 L 03/26/19 03:15 74 03/26/19 03:00 75 03/26/19 02:45 78 03/26/19 02:30 75 03/26/19 02:15 61 03/26/19 02:00 72 03/26/19 01:45 68 03/26/19 01:30 65 03/26/19 01:15 71 03/26/19 01:00 74 03/26/19 00:45 69 03/26/19 00:30 71 03/26/19 00:15 67 03/26/19 00:00 71 03/25/19 23:45 73 03/25/19 23:30 77 03/25/19 23:15 65 03/25/19 23:00 73 03/25/19 22:56 36.5 C 85 26 H 126/69 91 03/25/19 22:45 75 03/25/19 22:30 76 03/25/19 22:15 76 03/25/19 22:00 73 03/25/19 21:45 72 03/25/19 21:30 76
[2019-03-26 09:43] LABS: Appearance Urine Clear (Clear); Bacteria Urine Automated Negative (Negative); Bilirubin Urine Negative (Negative); Blood Urine 2+ (Negative); Color Urine Yellow; Epithelial Cell Urine Auto 20-30 /lpf (0-5); Glucose Urine UA Negative (Negative); Ketones Urine Negative (Negative); Leukocyte Esterase Urine 1+ (Negative); Nitrite Urine Negative (Negative); Protein Urine 2+ (Negative); Specific Gravity Urine 1.019 (1.000-1.030); Urobilinogen Urine Negative (Negative); pH Urine 5.5 (4.5-7.5)
[2019-03-26] MEDS: DEXMEDETOMIDINE HCL 200 MCG in SODIUM CHLORIDE 0.9% 48 ML IV SCH ×3 (09:51→23:36)
[2019-03-26] MEDS ORDERED: ICU ELECTROLYTE REPLACEMENT PROTOCOL PRN (11:28)
[2019-03-26] MEDS ORDERED: PEPTAMEN INTENSE VHP 1.0 CAL 1,000 ML BAG OG SCH (11:30)
[2019-03-26 14:20] LABS: iSTAT Allen Test Pass; iSTAT Arterial Blood Gas HCO3 28 meg/L (19-24); iSTAT Arterial Blood Gas pCO2 44 mmHg (35-46); iSTAT Arterial Blood Gas pH 7.42 (7.35-7.45); iSTAT Arterial Blood Gas pO2 52 mmHg (80-95); iSTAT Carbon Dioxide 30 mEq/l (24-31); iSTAT FiO2 60 %; iSTAT Site R Radial
--- NOTE | 2019-03-26 14:43 | XRay Report ---
XR chest 1V portable CLINICAL HISTORY: hypoxia dyspnea COMPARISON STUDY: 03/26/2019 4:50 AM FINDINGS: Endotracheal tube 1 cm above the kevin. This should be pulled back. Mild stable cardiac en largement. Persistent prominence of the pulmonary vasculature. Multiple bilateral old rib fractures. Potential small developing parenchymal infiltrate right base IMPRESSION: 1. Endotracheal tube 1 cm above the kevin. This should be pulled back. 2. Nasogastric tube placed inferior to the diaphragm within the stomach. 3. Interval small parenchymal infiltrate right base The above report was generated using voice recognition software. It may contain grammatical, syntax or spelling errors. Electronically signed by: Pratik Mora M.D. 03/26/2019 2:42 PM
[2019-03-26] MEDS: METOPROLOL TARTRATE 25 MG TAB PO SCH (20:26)
[2019-03-26] MEDS: LANSOPRAZOLE 30 MG SOLTAB NG SCH (20:26)
[2019-03-26] MEDS: FUROSEMIDE 40 MG in SYRINGE 0 ML IV SCH (20:27)
[2019-03-27] MEDS: AMPICILLIN/SULBACTAM SOD 3,000 MG in 0.9 % SODIUM CHLORIDE 100 ML IV SCH ×4 (02:10→20:58)
[2019-03-27 04:33] LABS: Mean Corpuscular Hgb Conc 30.5 g/dL (32-36); Nucleated RBC # (auto) 0.21 K/uL (0-0); Nucleated RBC % (auto) 3.7 %
[2019-03-27 04:39] LABS: Hematocrit (blood only) 23.9 % (37-47); Hemoglobin 7.3 g/dL (12.0-16.0); Mean Corpuscular Hemoglobin 26.3 pg (25-34); RDW Coefficient of Variation 17.6 % (11.5-14.5); RDW Standard Deviation 55.2 fL (36.4-46.3); Red Blood Count 2.78 M/uL (4.2-5.4); White Blood Count 5.67 K/uL (4.8-10.8)
[2019-03-27 04:46] LABS: INR 1.2 (0.9-1.1); Prothrombin Time 12.4 Seconds (9.0-12.0)
[2019-03-27 04:54] LABS: BUN Creatinine Ratio 28.6 (10-20); Calcium 9.1 mg/dl (8.5-10.1); Creatinine Clr Calc Pharmacy 52.9 ml/min; Est GFR (African American) 45.4; Est GFR (Non-African American) 39.2; Magnesium 1.8 mg/dl (1.8-2.4); Phosphorus 2.7 mg/dl (2.5-4.9); Potassium 3.4 mmol/L (3.5-5.1)
[2019-03-27] MEDS: INSULIN ASPART 100 UNITS/ML 3 ML PEN SC SCH ×4 (05:19→21:40)
[2019-03-27] MEDS ORDERED: POTASSIUM CHLORIDE 20 MEQ/15 ML UDC PO STA (05:28)
[2019-03-27 05:29] LABS: Basophils # (auto) 0.01 K/uL (0-0.2); Basophils % (auto) 0.2 %; Eosinophils # (auto) 0.07 K/uL (0-0.5); Eosinophils % (auto) 1.2 %; Giant Platelets 1+; Hypochromasia Present; Immature Granulocytes # (auto) 0.27 K/uL (0.00-0.02); Immature Granulocytes % (auto) 4.8 %; Lymphocytes # (auto) 0.58 K/uL (1.2-3.4); Lymphocytes % (auto) 10.2 %; Microcytosis Present; Monocytes # (auto) 0.32 K/uL (0.11-0.59); Monocytes % (auto) 5.6 %; Neutrophils # (auto) 4.42 K/uL (1.4-6.5); Platelet Count 31 K/uL (130-400); Platelet Estimate SIGNIFIC DECREASED (Normal); Tear Drop Cells 1+
[2019-03-27 06:01] LABS: iSTAT Arterial Blood Gas HCO3 32 meg/L (19-24); iSTAT Arterial Blood Gas pCO2 38 mmHg (35-46); iSTAT Arterial Blood Gas pH 7.53 (7.35-7.45); iSTAT Arterial Blood Gas pO2 189 mmHg (80-95); iSTAT Carbon Dioxide 33 mEq/l (24-31); iSTAT FiO2 60 %; iSTAT Site L Radial
--- NOTE | 2019-03-27 07:43 | XRay Report ---
XR chest 1V portable CLINICAL HISTORY: f/u COMPARISON STUDY: 03/26/2019 FINDINGS: There is an endotracheal tube with its tip within 1 cm above the kevin. There is a nasogas tric tube which passes into the stomach. There are old bilateral rib deformities. There is mild centr al vascular prominence. There is no lobar consolidation. Several apparent nodular foci likely corresp ond to old rib fractures. There are increased basilar markings, atelectatic versus inflammatory.[ IMPRESSION: Stable findings. The endotracheal tube remains within 1 cm above the kevin. Electronically signed by: Mode Levi M.D. 03/27/2019 7:41 AM
--- NOTE | 2019-03-27 07:43 | Critical Care Progress Note ---
Date of Service March 27, 2019 Assessment & Plan (1) Admitted to intensive care unit: Reason Critically Ill: 63-year-old female initially admitted for epistaxis who developed hypoxic hypercapnic respiratory failure requiring intubation Epistaxispatient currently has bilateral nasal packings, no longer bleeding -Received platelet and RBC infusions -hgb: 8.3-> 7.3 consider transfusion -daily cbc -PLT: 35->31 consider transfusion -ENT managing, will follow up recs -Per ENT do not remove nasal packing until hematocrit greater than 30 and platelet greater than 100 -or 3-5 days -Holding Eliquis Neuro - Altered mental statuslikely attributed to hypercapnia versus hyperammonemia, CO2 130 on blood gas, ammonia 120 -CT head negative for acute process -Patient mental status improved with correction of CO2 and now following commands, see respiratory management below -Started on lactulose 4 times daily -ammonia improving -120->52 Cardiac - Chronic right-sided heart failureecho on 09/04 showed normal EF with grade 1 diastolic dysfunction right ventricular cavity dilated with diffuse right ventricular hypokinesis -Is on 2 L O2 at home -Strict I's and O's, daily weights -Avoid volume overload - holding mtp 2/2 precedex History of DVT, was on Eliquis now holding for epistaxis Respiratory - Hypoxic hypercapnic respiratory failurepatient became significantly hypercapnic with CO2 of 130 and pH of 7.00 and was obtunded, was intubated -Per history, patient wears BiPAP at night for OHS and TYE and is chronically on 2 L O2, was unable to wear on this admission due to nasal packing and epistaxis -CXR showed no obvious infiltrates -passed sbt successfully weaned from vent -Continue nebs, pulmonary toilet -placed on precedex for agitation, wean as tolerated -IV lasix 40mg bid GI - N.p.o. RENAL/LYTES - KARLIE on CKDcreatinine elevated 1.45 this a.m., baseline 1.12 -CR: 1.45->1.42 -Would caution with fluid resuscitation given diagnosis of heart failure in the setting of acute respiratory failure Avoid nephrotoxins -Monitor creatinine with routine BMPs -Strict I's and O's - Foleystrict I's and O's ENDO - DM type IIcontinue glargine/aspart -ICU hyperglycemic protocol Metastatic breast cancermetastatic breast cancer to bone and lung -patient follows Dr. Light, receiving Xgeva and Faslodex but currently holding due to thrombocytopenia HEME - Thrombocytopenialast platelet count 36, patient received multiple platelet transfusions -Patient not currently bleeding, will trend and transfuse if necessary Anemialikely attributed to cancer versus acute blood loss in the setting of epistaxis -H&H down trending repeat at noon t/c transfusion ID - Prophylactic IV Unasyn LINES/IV ACCESS - Peripheral IVs, ETT DVT PROPHYLAXIS - SCDs, holding anticoagulation for epistaxis Thank you for allowing us to participate in the care of this patient. Please refer to my attending physician's documentation for any further recommendations. (2) Respiratory failure requiring intubation: (3) Hyperammonemia: (4) Metastatic disease: (5) Thrombocythemia: (6) Severe anemia: (7) Epistaxis: (8) Pulmonary hypertension: (9) Acute on chronic respiratory failure with hypoxia and hypercapnia: (10) TYE (obstructive sleep apnea): (11) Obesity hypoventilation syndrome: (12) Pancytopenia: (13) History of DVT (deep vein thrombosis): (14) Right-sided heart failure: (15) CKD (chronic kidney disease), stage III: (16) ATN (acute tubular necrosis): (17) DM type 2 (diabetes mellitus, type 2): Supervising Physician Co-Signing Physician Notes Dr. Meléndez was the resident-physician during care of patient. I separately evaluated patient for crook portions of the history and the exam. I was present during the critical portion of medical decision making, and I discussed the case with the resident. I generally agree with the findings and plan except for any additions/exceptions noted. Patient is doing better today after IV diuresis with Lasix twice daily. She is doing well on a spontaneous breathing trial today. She is currently on 7/5 on pressure support. We will extubate her today. We will continue diuresis. Her sodium is creeping up we will increase free water flushes if she is unable to take p.o. Her procalcitonin is improving. She is currently on Unasyn which was for prophylaxis given her ENT nasal packing. The bleeding appears to be adequately controlled. Her platelet count remains low and will continue to be low given her history of ITP and malignancy. We will discuss with ENT with regards to removing the nasal packing. Continue lactulose given her history of hyperammonemia likely cirrhosis. We are holding her metoprolol tartrate in the setting of her being on Precedex. She does have a history of DVT, but given the very recent epistaxis we will hold on anticoagulation at this time. I have personally spent 35 minutes of critical care time in the direct management of this patient. This is a life/limb threatening event. This includes time spent evaluating patient, direct bedside care, chart review, placing orders, interpretation of diagnostic studies, discussion with consultants, patient, and/or family members regarding treatment decisions, as well as other required patient management activities. This time is exclusive of all separately billable procedures, and teaching time and separate from and in addition to any other critical care service time. Subjective Patient laying in bed intubated in no acute distress. Nursing reports no acute events overnight. Patient continues to improve from a respiratory standpoint, passed spontaneous breathing trial plan to wean from ventilator later today. Patient has been receiving tube feeds, voiding, stooling, sleeping. No acute concerns at present, all questions answered. Physical Exam Physical Exam: Eyes: PERRL, conjunctivae normal, anicteric sclerae ENMT: external ear and nose normal, oropharynx normal Neck: trachea midline, no thyromegaly Respiratory: symmetric chest movement Auscultation: + rhonchi Cardiovascular: Rate/Rhythm: regular rate and regular rhythm Heart Sounds: normal S1 and normal S2 Vessels: no JVD Extremities: normal capillary refill; no edema Gastrointestinal (Abdomen): Abdomen obese, normoactive bowel sounds Neurologic: PERRLA, symmetrical movement, no facial palsy, Genitourinary: Indwelling Ta catheter present Results & Data Vital Signs (Past 12 Hours) Vital Signs Temp Pulse Resp BP Pulse Ox 03/27/19 06:00 54 L 22 136/75 99 03/27/19 05:00 57 L 138/72 100 03/27/19 04:00 36.8 C 64 134/69 100 03/27/19 03:34 22 03/27/19 02:03 55 L 03/27/19 02:00 52 L 133/71 100 03/27/19 01:00 55 L 117/65 100 03/27/19 00:00 37.7 C H 63 145/76 H 100 03/26/19 23:45 60 22 100 03/26/19 23:00 54 L 129/71 100 03/26/19 22:20 60 22 99 03/26/19 22:15 56 L 119/69 100 03/26/19 22:00 58 L 127/70 100 03/26/19 21:45 60 146/77 H 100 03/26/19 21:30 60 152/84 H 100 03/26/19 21:01 54 L 100 03/26/19 21:00 53 L 138/74 100 03/26/19 20:01 37.7 C H 54 L 100 Laboratory Results 03/27/19 03/27/19 03/27/19 Range/Units 11:45 05:48 04:25 WBC (4.8-10.8) K/uL RBC (4.2-5.4) M/uL Hgb (12.0-16.0) g/dL Hct (37-47) % MCV (80-100) fL MCH (25-34) pg MCHC (32-36) g/dL RDW Std Deviation (36.4-46.3) fL RDW Coeff of Flori (11.5-14.5) % Plt Count (130-400) K/uL Immature Gran % (Auto) % Neut % (Auto) % Lymph % (Auto) % [place] % (Auto) % Eos % (Auto) % Baso % (Auto) % Immature Gran # (Auto) (0.00-0.02) K/uL Neut # (Auto) (1.4-6.5) K/uL Lymph # (Auto) (1.2-3.4) K/uL [place] # (Auto) (0.11-0.59) K/uL Eos # (Auto) (0-0.5) K/uL Baso # (Auto) (0-0.2) K/uL Absolute Nucleated RBC (0-0) K/uL Nucleated RBC % (auto) % Platelet Estimate (Normal) Giant Platelets Hypochromasia Microcytosis Tear Drop Cells PT (9.0-12.0) Seconds INR (0.9-1.1) Sample Site L Radial POC pH 7.53 H* (7.35-7.45) POC pCO2 38 (35-46) mmHg POC pO2 189 H (80-95) mmHg POC HCO3 32 H (19-24) julian/L POC Total CO2 33 H (24-31) mEq/l POC Base Excess 9.0 H (-9-1.8) julian/L POC ABG O2 Sat 100.0 H (90-95) % Robert Test NA O2 Delivery Device Ventilator POC O2 Rate 22 Minute Ventilation 9.8 POC FiO2 60 % Tidal Volume 380 PEEP 10 Sodium (136-145) mmol/L Potassium (3.5-5.1) mmol/L Chloride (98-107) mmol/L Carbon Dioxide (21-32) mmol/L Anion Gap (3-11) BUN (7-18) mg/dl Creatinine (0.6-1.2) mg/dl Est Cr Clr Drug Dosing ml/min Est GFR ( Amer) Est GFR (Non-Af Amer) BUN/Creatinine Ratio (10-20) Glucose (70-99) mg/dl POC Glucose 185 H (70-99) Calcium (8.5-10.1) mg/dl Phosphorus (2.5-4.9) mg/dl Magnesium (1.8-2.4) mg/dl Ammonia 52.0 H (11-32) umol/L Procalcitonin (0-0.5) ng/ml Nasal Screen MRSA (PCR) (Negative) 03/27/19 03/27/19 03/27/19 Range/Units 04:25 04:25 04:25 WBC 5.67 (4.8-10.8) K/uL RBC 2.78 L (4.2-5.4) M/uL Hgb 7.3 L (12.0-16.0) g/dL Hct 23.9 L (37-47) % MCV 86.0 (80-100) fL MCH 26.3 (25-34) pg MCHC 30.5 L (32-36) g/dL RDW Std Deviation 55.2 H (36.4-46.3) fL RDW Coeff of Flori 17.6 H (11.5-14.5) % Plt Count 31 L (130-400) K/uL Immature Gran % (Auto) 4.8 % Neut % (Auto) 78.0 % Lymph % (Auto) 10.2 % [place] % (Auto) 5.6 % Eos % (Auto) 1.2 % Baso % (Auto) 0.2 % Immature Gran # (Auto) 0.27 H (0.00-0.02) K/uL Neut # (Auto) 4.42 (1.4-6.5) K/uL Lymph # (Auto) 0.58 L (1.2-3.4) K/uL [place] # (Auto) 0.32 (0.11-0.59) K/uL Eos # (Auto) 0.07 (0-0.5) K/uL Baso # (Auto) 0.01 (0-0.2) K/uL Absolute Nucleated RBC 0.21 H (0-0) K/uL Nucleated RBC % (auto) 3.7 % Platelet Estimate SIGNIFIC DECREASED (Normal) Giant Platelets 1+ Hypochromasia Present Microcytosis Present Tear Drop Cells 1+ PT 12.4 H (9.0-12.0) Seconds INR 1.2 H (0.9-1.1) Sample Site POC pH (7.35-7.45) POC pCO2 (35-46) mmHg POC pO2 (80-95) mmHg POC HCO3 (19-24) julian/L POC Total CO2 (24-31) mEq/l POC Base Excess (-9-1.8) julian/L POC ABG O2 Sat (90-95) % Robert Test O2 Delivery Device POC O2 Rate Minute Ventilation POC FiO2 % Tidal Volume PEEP Sodium (136-145) mmol/L Potassium (3.5-5.1) mmol/L Chloride (98-107) mmol/L Carbon Dioxide (21-32) mmol/L Anion Gap (3-11) BUN (7-18) mg/dl Creatinine (0.6-1.2) mg/dl Est Cr Clr Drug Dosing ml/min Est GFR ( Amer) Est GFR (Non-Af Amer) BUN/Creatinine Ratio (10-20) Glucose (70-99) mg/dl POC Glucose (70-99) Calcium (8.5-10.1) mg/dl Phosphorus (2.5-4.9) mg/dl Magnesium (1.8-2.4) mg/dl Ammonia (11-32) umol/L Procalcitonin 0.48 (0-0.5) ng/ml Nasal Screen MRSA (PCR) (Negative) 12/13/19 12/12/19 12/12/19 Range/Units 04:25 23:39 17:32 WBC (4.8-10.8) K/uL RBC (4.2-5.4) M/uL Hgb (12.0-16.0) g/dL Hct (37-47) % MCV (80-100) fL MCH (25-34) pg MCHC (32-36) g/dL RDW Std Deviation (36.4-46.3) fL RDW Coeff of Flori (11.5-14.5) % Plt Count (130-400) K/uL Immature Gran % (Auto) % Neut % (Auto) % Lymph % (Auto) % [place] % (Auto) % Eos % (Auto) % Baso % (Auto) % Immature Gran # (Auto) (0.00-0.02) K/uL Neut # (Auto) (1.4-6.5) K/uL Lymph # (Auto) (1.2-3.4) K/uL [place] # (Auto) (0.11-0.59) K/uL Eos # (Auto) (0-0.5) K/uL Baso # (Auto) (0-0.2) K/uL Absolute Nucleated RBC (0-0) K/uL Nucleated RBC % (auto) % Platelet Estimate (Normal) Giant Platelets Hypochromasia Microcytosis Tear Drop Cells PT (9.0-12.0) Seconds INR (0.9-1.1) Sample Site POC pH (7.35-7.45) POC pCO2 (35-46) mmHg POC pO2 (80-95) mmHg POC HCO3 (19-24) julian/L POC Total CO2 (24-31) mEq/l POC Base Excess (-9-1.8) julian/L POC ABG O2 Sat (90-95) % Robert Test O2 Delivery Device POC O2 Rate Minute Ventilation POC FiO2 % Tidal Volume PEEP Sodium 148 H (136-145) mmol/L Potassium 3.4 L D (3.5-5.1) mmol/L Chloride 113 H (98-107) mmol/L Carbon Dioxide 29 (21-32) mmol/L Anion Gap 6.0 (3-11) BUN 41 H (7-18) mg/dl Creatinine 1.42 H (0.6-1.2) mg/dl Est Cr Clr Drug Dosing 52.9 ml/min Est GFR ( Amer) 45.4 Est GFR (Non-Af Amer) 39.2 BUN/Creatinine Ratio 28.6 H (10-20) Glucose 158 H (70-99) mg/dl POC Glucose 171 H 143 H (70-99) Calcium 9.1 (8.5-10.1) mg/dl Phosphorus 2.7 (2.5-4.9) mg/dl Magnesium 1.8 (1.8-2.4) mg/dl Ammonia (11-32) umol/L Procalcitonin (0-0.5) ng/ml Nasal Screen MRSA (PCR) (Negative) 03/26/19 03/26/19 03/26/19 Range/Units 14:05 11:58 06:10 WBC (4.8-10.8) K/uL RBC (4.2-5.4) M/uL Hgb (12.0-16.0) g/dL Hct (37-47) % MCV (80-100) fL MCH (25-34) pg MCHC (32-36) g/dL RDW Std Deviation (36.4-46.3) fL RDW Coeff of Flori (11.5-14.5) % Plt Count (130-400) K/uL Immature Gran % (Auto) % Neut % (Auto) % Lymph % (Auto) % [place] % (Auto) % Eos % (Auto) % Baso % (Auto) % Immature Gran # (Auto) (0.00-0.02) K/uL Neut # (Auto) (1.4-6.5) K/uL Lymph # (Auto) (1.2-3.4) K/uL [place] # (Auto) (0.11-0.59) K/uL Eos # (Auto) (0-0.5) K/uL Baso # (Auto) (0-0.2) K/uL Absolute Nucleated RBC (0-0) K/uL Nucleated RBC % (auto) % Platelet Estimate (Normal) Giant Platelets Hypochromasia Microcytosis Tear Drop Cells PT (9.0-12.0) Seconds INR (0.9-1.1) Sample Site R Radial POC pH 7.42 (7.35-7.45) POC pCO2 44 (35-46) mmHg POC pO2 52 L (80-95) mmHg POC HCO3 28 H (19-24) julian/L POC Total CO2 30 (24-31) mEq/l POC Base Excess 4.0 H (-9-1.8) julian/L POC ABG O2 Sat 87.0 L (90-95) % Robert Test Pass O2 Delivery Device Ventilator POC O2 Rate 22 Minute Ventilation 8.4 POC FiO2 60 % Tidal Volume 380 PEEP 10 Sodium (136-145) mmol/L Potassium (3.5-5.1) mmol/L Chloride (98-107) mmol/L Carbon Dioxide (21-32) mmol/L Anion Gap (3-11) BUN (7-18) mg/dl Creatinine (0.6-1.2) mg/dl Est Cr Clr Drug Dosing ml/min Est GFR ( Amer) Est GFR (Non-Af Amer) BUN/Creatinine Ratio (10-20) Glucose (70-99) mg/dl POC Glucose 153 H (70-99) Calcium (8.5-10.1) mg/dl Phosphorus (2.5-4.9) mg/dl Magnesium (1.8-2.4) mg/dl Ammonia (11-32) umol/L Procalcitonin (0-0.5) ng/ml Nasal Screen MRSA (PCR) Negative (Negative) Medications Administered Current Inpatient Medications Acetaminophen (Tylenol) 650 mg PO Q4H PRN PRN Reason: Pain or Fever Stop: 04/23/19 19:56 Dextrose (Dextrose 50%) 25 - 50 ml IV UD PRN; Protocol PRN Reason: Hypoglycemia Protocol Stop: 04/23/19 19:56 Fentanyl Citrate (Fentanyl Bolus From Bag) 25 mcg IV ONE PRN PRN Reason: pain/sedation on vent Glucagon (Glucagen) 1 mg SQ UD PRN; Protocol PRN Reason: Hypoglycemia Protocol Stop: 04/23/19 19:56 Glucose (Dex4 Glucose) 4 - 8 tabs PO UD PRN; Protocol PRN Reason: Hypoglycemia Protocol Stop: 04/23/19 19:56 Glucose (Glucose 40%) 15 - 30 gm PO UD PRN; Protocol PRN Reason: Hypoglycemia Protocol Stop: 04/23/19 19:56 Ampicillin Sodium/Sulbactam Sodium 3,000 mg/ Sodium Chloride 108 mls @ 216 mls/hr IV Q6H [facility] Stop: 04/01/19 01:59 Last Infusion: 03/27/19 09:05 Dose: Infused Documented by: Fentanyl Citrate (Fentanyl Drip) 1,250 mcg in 250 mls @ 20 mls/hr IV .[id number] [facility]; Protocol Stop: 04/09/19 08:39 Last Titration: 03/27/19 10:26 Dose: Infused Documented by: Dexmedetomidine HCl 200 mcg/ (Sodium Chloride) 50 mls @ 5.89 mls/hr IV .Q8H30M [facility]; Protocol Stop: 03/30/19 09:37 Last Admin: 03/27/19 08:37 Dose: 0.2 mcg/kg/hr, 5.9 mls/hr Documented by: Furosemide 40 mg/ Syringe 4 mls @ 4 mls/min IV BID [facility] Stop: 04/25/19 20:59 Last Admin: 03/27/19 08:34 Dose: 4 mls/min Documented by: Famotidine 20 mg/ Syringe 5 mls @ 2.5 mls/min IV BID [facility] Stop: 04/26/19 09:14 Last Admin: 03/27/19 10:22 Dose: 2.5 mls/min Documented by: Insulin Aspart (Novolog Flexpen) 0 units SC Q6 [facility] Stop: 04/25/19 11:59 Last Admin: 03/27/19 05:19 Dose: Not Given Documented by: Insulin Glargine (Lantus Solostar Pen) 0 - 20 units SC BID [facility]; Protocol Stop: 04/23/19 20:59 Last Admin: 03/27/19 08:36 Dose: 10 units Documented by: Lactulose (Chronulac) 30 gm PO QID [facility] Stop: 04/25/19 08:59 Last Admin: 03/27/19 08:29 Dose: 30 gm Documented by: Lansoprazole (Prevacid) 30 mg NG BID [facility] Stop: 04/25/19 20:59 Last Admin: 03/27/19 08:30 Dose: 30 mg Documented by: Metoprolol Tartrate (Lopressor) 25 mg PO BID [facility] Stop: 04/25/19 20:59 Last Admin: 03/27/19 08:42 Dose: Not Given Documented by: Miscellaneous (Carbohydrates For Hypoglycemia) 15 - 30 gm PO UD PRN PRN Reason: Hypoglycemia Protocol Stop: 04/23/19 19:56 Miscellaneous (Icu Electrolyte Replacement Protocol) 1 ea N/A UD PRN PRN Reason: for e-lyte repletion Stop: 04/02/19 11:27 Miscellaneous Information (Ampicillin/Sulbactam Consult) 1 ea N/A UD PRN PRN Reason: Consult Stop: 04/23/19 20:59 Nutritional Formula (Peptamen Intense Vhp 1.0 Donnie) 1,000 ml OG .CONTINUOUS [facility]; Protocol Stop: 04/25/19 11:29 Last Admin: 03/26/19 16:09 Dose: 1,000 ml Documented by: Oxycodone HCl (Roxicodone) 5 mg NG Q4H PRN PRN Reason: pain Stop: 04/10/19 09:51 Resident Activity Tracking Resident Involvement: Resident Care Provided Care Provided: Adult Hospital Medicine (ICU)
[2019-03-27] MEDS: LACTULOSE SYRUP 30 GM/45 ML UDP PO SCH ×4 (08:29→20:59)
[2019-03-27] MEDS: LANSOPRAZOLE 30 MG SOLTAB NG SCH ×2 (08:30→21:00)
[2019-03-27] MEDS: METOPROLOL TARTRATE 25 MG TAB PO SCH ×4 (08:30→20:59)
[2019-03-27] MEDS: FUROSEMIDE 40 MG in SYRINGE 0 ML IV SCH ×2 (08:34→21:54)
[2019-03-27] MEDS: INSULIN GLARGINE SOLOSTAR 100 UNITS/ML 3 ML PEN SC SCH ×2 (08:36→21:39)
[2019-03-27] MEDS: DEXMEDETOMIDINE HCL 200 MCG in SODIUM CHLORIDE 0.9% 48 ML IV SCH (08:37)
[2019-03-27] MEDS: FAMOTIDINE 20 MG in SYRINGE 3 ML IV SCH ×2 (10:22→21:00)
--- NOTE | 2019-03-27 10:39 | Hospitalist Progress Note ---
Date of Service March 27, 2019 Assessment & Plan (1) Respiratory failure requiring intubation: (2) Acute on chronic respiratory failure with hypoxia and hypercapnia: (3) Epistaxis: (4) Severe anemia: (5) Thrombocythemia: This is a 63-year-old female who has significant past medical history of metastatic breast cancer to bone, T2 DM, HLD, obesity hypoventilation syndrome, right heart failure, chronic ITP, history of DVT anticoagulated on Eliquis, rheumatoid arthritis, depression who presents to ED at the recommendation of Dr. Light hematology oncology secondary to abnormal labs and epistaxis. In ED a nasal packing was placed trans-examic acid and bleeding has ceased. She did have a posterior pharynx blood clot that was removed by ENT. RN reported another clot today-Rec notifying ENT In ED patient remained hemodynamically stable. Her H&H was 5.6 and 18.7 with platelet count of 15 BUN/creatinine 41 and 1.15, glucose 184, alk phos 121, albumin 2.4, corrected calcium 11.2, mag 1.7 She was transfused 2 units PRBC. Keep in ICU-Patient still intubated. Was unable to wear BIPAP sec to nasal packing so her PCO2 lexy Transfuse PRBC and pack of platelets as needed trend cbc monitor volume status closely Per ENT DO NOT REMOVE NASAL PACKING until Hct > 30L and PLT > 100 at that time ENT will remove dressing and determine next course of action Hold Eliquis continue IV unasyn for prophylaxis (6) CKD (chronic kidney disease), stage III: Follow BMP (7) Metastatic breast cancer: Metastatic breast cancer to bone, lung Follows Dr. Light Receiving Xgeva and Faslodex -treatments held given thrombocytopenia oxycodone for metastatic pain - verified in pdmp (8) Right-sided heart failure: Chronic right sided heart failure Echo 09/04/2018 revealed normal LVEF, grade 1 diastolic dysfunction, right ventricular cavity dilated with diffuse right ventricular hypokinesis Monitor volume status closely given transfusion Patient prescribed O2 2 L at home daily weight strict I and O (9) Hyperammonemia: Lactulose per critical care (10) TYE (obstructive sleep apnea): CPAP/BiPAP at bedtime if able when extubated Currently unable to tolerate given nasal packing Continue oxygen via oxygen mask (11) DM type 2 (diabetes mellitus, type 2): 9/25/19 A1c 9.2 Lantus/NovoLog per protocol Repeat A1c in a.m. (12) History of DVT (deep vein thrombosis): History of DVT and also with hypercoagulable state given metastatic carcinoma Hold Eliquis in setting of severe anemia and thrombocytopenia (13) Rheumatoid arthritis: Patient takes oxycodone 5 mg every 4 hours Verified with PDMP (14) DVT prophylaxis: SCD/TEDS Contraindicated in setting of severe anemia, thrombocytopenia Hold Eliquis Disposition: Vented in ICU Follow-up: PCP Dr. Larry upon discharge labs checked ROS-Intubated Physical Exam Gen-Awake and Alert, NAD, Afebrile, Obese Head-NCAT, EOMI, PERRLA, Anicteric Sclera, No Posterior Pharyngeal Erythema, nasal Packing in Place c blood Neck-Supple, No JVD, No Thyromegaly, No Masses, No LAD, No Bruits Lungs-Clear to Auscultation Bilaterally, No Rales, No Rhonchi, No Wheezing, No Crepitus Chest-No S4, +S1, +S2, No S3, No Murmurs, No Rubs, No Gallops, No Ectopy Abdomen-Soft, Bowel Sounds Present, Non Tender, Non Distended, No Hepatomegaly, No Splenomegaly, No Palpable Masses, No Rebound, No Rigidity, No Guarding Musculoskeletal-Full Range of Motion Bilaterally, No CVAT Extremities-No Cyanosis, No Clubbing, No Edema Nuero-Cranial Nerves II-XII grossly intact, Motor WNL, DTRs WNL, Strength WNL, Non Focal Psych-Normal Mood Results & Data Vital Signs (Past 12 Hours) Vital Signs Temp Pulse Resp BP Pulse Ox 03/27/19 09:35 65 17 95 03/27/19 08:07 54 L 22 100 03/27/19 06:00 54 L 22 136/75 99 03/27/19 05:00 57 L 138/72 100 03/27/19 04:00 36.8 C 64 134/69 100 03/27/19 03:34 22 03/27/19 02:03 55 L 03/27/19 02:00 52 L 133/71 100 03/27/19 01:00 55 L 117/65 100 03/27/19 00:00 37.7 C H 63 145/76 H 100 03/26/19 23:45 60 22 100 03/26/19 23:00 54 L 129/71 100
--- NOTE | 2019-03-27 10:52 | Billing Data ---
Date of Service March 27, 2019 Coding Level of Care Code Critical Care 1st 30-74 mins Time Spent (min) 35
[2019-03-27 13:25] LABS: Hematocrit (blood only) 26.6 % (37-47); Hemoglobin 8.2 g/dL (12.0-16.0); Mean Corpuscular Hemoglobin 26.6 pg (25-34); Mean Corpuscular Volume 86.4 fL (80-100); RDW Coefficient of Variation 17.8 % (11.5-14.5); RDW Standard Deviation 55.2 fL (36.4-46.3); Red Blood Count 3.08 M/uL (4.2-5.4); White Blood Count 6.62 K/uL (4.8-10.8)
[2019-03-27 13:27] LABS: Anisocytosis Present; Basophils # (auto) 0.03 K/uL (0-0.2); Basophils % (auto) 0.5 %; Eosinophils # (auto) 0.11 K/uL (0-0.5); Eosinophils % (auto) 1.7 %; Lymphocytes # (auto) 0.63 K/uL (1.2-3.4); Lymphocytes % (auto) 9.5 %; Mean Corpuscular Hgb Conc 30.8 g/dL (32-36); Monocytes # (auto) 0.42 K/uL (0.11-0.59); Monocytes % (auto) 6.3 %; Neutrophils # (auto) 5.03 K/uL (1.4-6.5); Nucleated RBC # (auto) 0.18 K/uL (0-0); Nucleated RBC % (auto) 2.7 %; Platelet Count 36 K/uL (130-400); Platelet Estimate SIGNIFIC DECREASED (Normal); Polychromasia 1+; Spherocytes 1+
[2019-03-27] MEDS ORDERED: Nursing to Pharmacy Communication ONE (14:19)
--- NOTE | 2019-03-27 15:19 | Progress Note ---
DATE: 03/27/2019 HEAD AND NECK SURGERY CONSULTATION FOLLOWUP NOTE HISTORY OF PRESENT ILLNESS: I saw the patient in her ICU bed today. I last saw her on 03/25/2019 where I placed an 8 cm right Merocel sponge into her right nasal cavity after the pack that was placed in the Emergency Room by the Emergency Room physician, Dr. Faisal Navarro, was snf out and the patient started bleeding. Since she had that pack placed, she has not had any significant bleeding despite having thrombocytopenia. The next evening, she developed some shortness of breath and elevated CO2 and required intubation and ICU transfer. This is likely due to her pickwickian syndrome. She is now extubated and is accompanied by her at the bedside. I am not sure why, but several notes in the electronic medical records state that she has bilateral nasal packing. This is absolutely not the case as she has only a Merocel sponge on the right hand side. Of note, unilateral nasal packing will not result in an hypoxic event. She has received several units of packed red blood cells and platelets, but her most recent laboratory examination reveals that she is still anemic with a hematocrit of 26.6 and also thrombocytopenic with a platelet count of 36. PHYSICAL EXAMINATION: On examination, her right Merocel sponge is in place and there is no significant bleeding. She has gauze over her nose and there is only a small amount of dried blood present. Oral cavity and oropharyngeal examination does not reveal any bloody postnasal drip. She is morbidly obese and she is tachypneic. Once again, I would recommend transfusion with packed red blood cells as well as platelets. Ideally, I wanted her hematocrit to be 30 or above and her platelet count to be 100,000 or above, but I understand that her platelet count might not get to this level, I would at least like it to be 50,000 and her hematocrit 30 before entertaining removal of her current pack. I will continue to monitor her labs and we will remove her pack once these parameters are met. If you have any questions regarding this patient's care, please do not hesitate to contact me.
[2019-03-27] MEDS: OXYCODONE HCL SOLN 5 MG/5 ML UDC NG PRN ×2 (16:05→20:38)
[2019-03-27] MEDS ORDERED: METOPROLOL TARTRATE 1 MG/ML VIAL IV STA (17:22)
[2019-03-27] MEDS ORDERED: METOPROLOL TARTRATE 1 MG/ML VIAL IV ONE (17:24)
[2019-03-27 17:31] LABS: BUN Creatinine Ratio 26.8 (10-20); Calcium 10.2 mg/dl (8.5-10.1); Creatinine Clr Calc Pharmacy 52.8 ml/min; Est GFR (African American) 45.4; Est GFR (Non-African American) 39.2; Potassium 3.6 mmol/L (3.5-5.1)
[2019-03-27] MEDS ORDERED: NURSING DECISION MEDICATION ONE (19:56)
[2019-03-27] MEDS: LEVALBUTEROL HCL 0.63 MG/3 ML NEB NEB PRN (20:43)
[2019-03-28] MEDS: OXYCODONE HCL SOLN 5 MG/5 ML UDC NG PRN ×6 (00:44→20:54)
[2019-03-28] MEDS: LEVALBUTEROL HCL 0.63 MG/3 ML NEB NEB PRN ×6 (00:47→21:12)
[2019-03-28] MEDS: AMPICILLIN/SULBACTAM SOD 3,000 MG in 0.9 % SODIUM CHLORIDE 100 ML IV SCH ×4 (02:57→20:55)
[2019-03-28] MEDS: LACTULOSE SYRUP 30 GM/45 ML UDP PO SCH ×4 (07:28→20:55)
[2019-03-28] MEDS: METOPROLOL TARTRATE 25 MG TAB PO SCH ×2 (07:31→20:56)
[2019-03-28] MEDS: FAMOTIDINE 20 MG in SYRINGE 3 ML IV SCH ×2 (07:31→20:57)
[2019-03-28] MEDS: INSULIN GLARGINE SOLOSTAR 100 UNITS/ML 3 ML PEN SC SCH ×2 (07:31→20:58)
[2019-03-28] MEDS: LANSOPRAZOLE 30 MG SOLTAB NG SCH ×2 (07:31→20:56)
[2019-03-28] MEDS: INSULIN ASPART 100 UNITS/ML 3 ML PEN SC SCH ×4 (07:31→20:58)
[2019-03-28 07:32] LABS: BUN Creatinine Ratio 26.9 (10-20); Creatinine Clr Calc Pharmacy 56.8 ml/min; Est GFR (African American) 49.6; Est GFR (Non-African American) 42.8; Magnesium 1.5 mg/dl (1.8-2.4); Potassium 3.2 mmol/L (3.5-5.1)
[2019-03-28] MEDS: FUROSEMIDE 40 MG in SYRINGE 0 ML IV SCH ×2 (07:32→20:56)
[2019-03-28 07:36] LABS: Phosphorus 4.3 mg/dl (2.5-4.9)
--- NOTE | 2019-03-28 07:50 | Hospitalist Progress Note ---
Date of Service March 28, 2019 Assessment & Plan (1) Respiratory failure requiring intubation: (2) Acute on chronic respiratory failure with hypoxia and hypercapnia: (3) Epistaxis: (4) Severe anemia: (5) Thrombocythemia: This is a 63-year-old female who has significant past medical history of metastatic breast cancer to bone, T2 DM, HLD, obesity hypoventilation syndrome, right heart failure, chronic ITP, history of DVT anticoagulated on Eliquis, rheumatoid arthritis, depression who presents to ED at the recommendation of Dr. Light hematology oncology secondary to abnormal labs and epistaxis. In ED a nasal packing was placed trans-examic acid and bleeding has ceased. She did have a posterior pharynx blood clot that was removed by ENT. RN reported another clot today-Rec notifying ENT In ED patient remained hemodynamically stable. Her H&H was 5.6 and 18.7 with platelet count of 15 BUN/creatinine 41 and 1.15, glucose 184, alk phos 121, albumin 2.4, corrected calcium 11.2, mag 1.7 She was transfused 2 units PRBC. Now in PCU-Patient Extubated. Was unable to wear BIPAP sec to nasal packing so her PCO2 lexy Transfuse PRBC and pack of platelets as needed trend cbc monitor volume status closely Per ENT DO NOT REMOVE NASAL PACKING until Hct > 30L and PLT > 100 at that time ENT will remove dressing and determine next course of action Hold Eliquis continue IV unasyn for prophylaxis (6) CKD (chronic kidney disease), stage III: Follow BMP (7) Metastatic breast cancer: Metastatic breast cancer to bone, lung Follows Dr. Light Receiving Xgeva and Faslodex -treatments held given thrombocytopenia oxycodone for metastatic pain - verified in pdmp (8) Right-sided heart failure: Chronic right sided heart failure Echo 09/04/2018 revealed normal LVEF, grade 1 diastolic dysfunction, right ventricular cavity dilated with diffuse right ventricular hypokinesis Monitor volume status closely given transfusion Patient prescribed O2 2 L at home daily weight strict I and O (9) Hyperammonemia: Lactulose per critical care (10) TYE (obstructive sleep apnea): CPAP/BiPAP at bedtime if able when extubated Currently unable to tolerate given nasal packing Continue oxygen via oxygen mask (11) DM type 2 (diabetes mellitus, type 2): 01/07/19 A1c 9.2 Lantus/NovoLog per protocol Repeat A1c in a.m. (12) History of DVT (deep vein thrombosis): History of DVT and also with hypercoagulable state given metastatic carcinoma Hold Eliquis in setting of severe anemia and thrombocytopenia (13) Rheumatoid arthritis: Patient takes oxycodone 5 mg every 4 hours Verified with PDMP (14) DVT prophylaxis: SCD/TEDS Contraindicated in setting of severe anemia, thrombocytopenia Hold Eliquis Disposition: DC When Stable, ENT in office after DC Follow-up: PCP Dr. Larry upon discharge labs checked ROS-No Headache, No Visual Changes, No Nausea, No Vomiting, No Fever, No Chills, No Neck Pain or Stiffness, No Chest Pain, No Palpitations, No SOB, No TOMAS, No Cough, No Sputum, No Wheezing, No Abdominal Pain, No Diarrhea, No Hematemesis, No Hemoptysis, No Unexpected Weight Loss, No Flank pain, No Melena, No Hematochezia, No Frequency, No Urgency, No Burning, No Hematuria, No Rashes, No Diaphoresis. Appetite is Normal Physical Exam Gen-AAO x 3, NAD, Afebrile, Nasal Packed Head-NCAT, EOMI, PERRLA, Anicteric Sclera, No Posterior Pharyngeal Erythema Neck-Supple, No JVD, No Thyromegaly, No Masses, No LAD, No Bruits Lungs-Clear to Auscultation Bilaterally, No Rales, No Rhonchi, No Wheezing, No Crepitus Chest-No S4, +S1, +S2, No S3, No Murmurs, No Rubs, No Gallops, No Ectopy Abdomen-Soft, Bowel Sounds Present, Non Tender, Non Distended, No Hepatomegaly, No Splenomegaly, No Palpable Masses, No Rebound, No Rigidity, No Guarding Musculoskeletal-Full Range of Motion Bilaterally, No CVAT Extremities-No Cyanosis, No Clubbing, No Edema Nuero-Cranial Nerves II-XII grossly intact, Motor WNL, DTRs WNL, Strength WNL, Non Focal Psych-Normal Mood Results & Data Vital Signs (Past 12 Hours) Vital Signs Temp Pulse Pulse Resp BP BP Pulse Ox 03/28/19 07:09 36.4 C L 75 20 145/76 H 95 03/28/19 04:40 69 22 98 03/28/19 03:05 36.6 C 69 22 142/76 H 97 03/28/19 00:47 77 22 90 03/27/19 23:45 36.6 C 108 H 22 130/83 99 03/27/19 20:44 113 H 24 90 03/27/19 19:57 36.7 C 125 H 22 116/75 98
[2019-03-28] MEDS ORDERED: POTASSIUM CHLORIDE 20 MEQ TABCR PO STA (09:54)
[2019-03-28] MEDS: MAGNESIUM OXIDE 400 MG TAB PO SCH ×2 (12:02→20:56)
[2019-03-29] MEDS: OXYCODONE HCL SOLN 5 MG/5 ML UDC NG PRN ×6 (00:57→22:23)
[2019-03-29] MEDS: AMPICILLIN/SULBACTAM SOD 3,000 MG in 0.9 % SODIUM CHLORIDE 100 ML IV SCH ×4 (01:00→19:36)
[2019-03-29] MEDS: LEVALBUTEROL HCL 0.63 MG/3 ML NEB NEB PRN ×6 (01:03→21:52)
[2019-03-29] MEDS: LACTULOSE SYRUP 30 GM/45 ML UDP PO SCH ×4 (07:25→21:16)
[2019-03-29] MEDS: LANSOPRAZOLE 30 MG SOLTAB NG SCH ×2 (07:26→21:21)
[2019-03-29] MEDS: MAGNESIUM OXIDE 400 MG TAB PO SCH ×3 (07:26→21:20)
[2019-03-29] MEDS: METOPROLOL TARTRATE 25 MG TAB PO SCH ×2 (07:27→21:20)
[2019-03-29] MEDS: POTASSIUM CHLORIDE 20 MEQ/15 ML UDC PO SCH ×2 (07:31→21:17)
[2019-03-29] MEDS: FUROSEMIDE 40 MG in SYRINGE 0 ML IV SCH ×2 (07:58→21:20)
[2019-03-29] MEDS: INSULIN ASPART 100 UNITS/ML 3 ML PEN SC SCH ×4 (07:58→21:21)
[2019-03-29] MEDS: INSULIN GLARGINE SOLOSTAR 100 UNITS/ML 3 ML PEN SC SCH ×2 (07:59→21:18)
[2019-03-29 08:19] LABS: Calcium 9.8 mg/dl (8.5-10.1); Creatinine Clr Calc Pharmacy 59.9 ml/min; Est GFR (Non-African American) 45.7; Hematocrit (blood only) 25.6 % (37-47); Hemoglobin 7.8 g/dL (12.0-16.0); Magnesium 1.5 mg/dl (1.8-2.4); Mean Corpuscular Hemoglobin 26.5 pg (25-34); Mean Corpuscular Hgb Conc 30.5 g/dL (32-36); Mean Corpuscular Volume 87.1 fL (80-100); Nucleated RBC # (auto) 0.68 K/uL (0-0); Nucleated RBC % (auto) 11.6 %; Phosphorus 4.6 mg/dl (2.5-4.9); Platelet Count 23 K/uL (130-400); Platelet Estimate SIGNIFIC DECREASED (Normal); Potassium 3.8 mmol/L (3.5-5.1); RDW Coefficient of Variation 17.5 % (11.5-14.5); RDW Standard Deviation 55.3 fL (36.4-46.3); Red Blood Count 2.94 M/uL (4.2-5.4); White Blood Count 5.93 K/uL (4.8-10.8)
--- NOTE | 2019-03-29 08:40 | Ears,Nose,Throat Progress Note ---
Date of Service March 29, 2019 Results & Data Vital Signs (Past 12 Hours) Vital Signs Temp Pulse Resp BP Pulse Ox 03/29/19 07:00 36.5 C 69 19 153/69 H 97 03/29/19 04:59 65 18 93 03/29/19 03:59 36.7 C 68 20 146/76 H 94 03/29/19 01:05 66 20 98 03/29/19 00:12 36.6 C 65 20 155/79 H 99 03/28/19 21:14 69 18 99
--- NOTE | 2019-03-29 09:09 | Progress Note ---
DATE: 03/29/2019 This patient's laboratory examination this morning shows a hematocrit of 25.6 and a platelet count of 23. Despite asking for transfusion of packed red blood cells and platelets, I do not believe that this patient has received this in reviewing the patient's chart. Of note, I have made the recommendation that I would like the patient's hematocrit to be 30 and the platelet count to be at least 50 before consideration of removal of her right Merocel pack. I humbly asked the hospital team to transfuse this patient packed red blood cells and platelets so that this patient can have her right nasal pack removed safely.
[2019-03-29] MEDS: FAMOTIDINE 20 MG in SYRINGE 3 ML IV SCH ×2 (09:12→21:19)
[2019-03-29] MEDS ORDERED: FUROSEMIDE 80 MG in SYRINGE 0 ML IV ONE (14:45)
[2019-03-30] MEDS: AMPICILLIN/SULBACTAM SOD 3,000 MG in 0.9 % SODIUM CHLORIDE 100 ML IV SCH ×4 (02:08→20:08)
[2019-03-30] MEDS: OXYCODONE HCL SOLN 5 MG/5 ML UDC NG PRN ×4 (03:16→20:07)
[2019-03-30] MEDS: LEVALBUTEROL HCL 0.63 MG/3 ML NEB NEB PRN ×4 (03:42→18:03)
--- NOTE | 2019-03-30 07:22 | Hospitalist Progress Note ---
Date of Service March 30, 2019 Assessment & Plan (1) Respiratory failure requiring intubation: (2) Acute on chronic respiratory failure with hypoxia and hypercapnia: (3) Epistaxis: (4) Severe anemia: (5) Thrombocythemia: This is a 63-year-old female who has significant past medical history of metastatic breast cancer to bone, T2 DM, HLD, obesity hypoventilation syndrome, right heart failure, chronic ITP, history of DVT anticoagulated on Eliquis, rheumatoid arthritis, depression who presents to ED at the recommendation of Dr. Light hematology oncology secondary to abnormal labs and epistaxis. In ED a nasal packing was placed trans-examic acid and bleeding has ceased. She did have a posterior pharynx blood clot that was removed by ENT. RN reported another clot today-Rec notifying ENT In ED patient remained hemodynamically stable. Her H&H was 5.6 and 18.7 with platelet count of 15 BUN/creatinine 41 and 1.15, glucose 184, alk phos 121, albumin 2.4, corrected calcium 11.2, mag 1.7 She was transfused 2 units PRBC. Now in PCU-Patient Extubated. Was unable to wear BIPAP sec to nasal packing so her PCO2 lexy Transfuse PRBC and pack of platelets as needed trend cbc monitor volume status closely Per ENT DO NOT REMOVE NASAL PACKING until Hct > 30L and PLT > 100 at that time ENT will remove dressing and determine next course of action Hold Sharyn Need 2 units of Platelets 03/29, Became SOB and was given 80 IV Lasix continue IV Unasyn for prophylaxis stop on 03/31 (6) CKD (chronic kidney disease), stage III: Follow BMP (7) Metastatic breast cancer: Metastatic breast cancer to bone, lung Follows Dr. Light Receiving Xgeva and Faslodex -treatments held given thrombocytopenia oxycodone for metastatic pain - verified in pdmp (8) Right-sided heart failure: Chronic right sided heart failure Echo 09/04/2018 revealed normal LVEF, grade 1 diastolic dysfunction, right ventricular cavity dilated with diffuse right ventricular hypokinesis Monitor volume status closely given transfusion Patient prescribed O2 2 L at home daily weight strict I and O (9) Hyperammonemia: Lactulose per critical care (10) TYE (obstructive sleep apnea): CPAP/BiPAP at bedtime if able when extubated Currently unable to tolerate given nasal packing Continue oxygen via oxygen mask (11) DM type 2 (diabetes mellitus, type 2): 01/07/19 A1c 9.2 Lantus/NovoLog per protocol Repeat A1c in a.m. (12) History of DVT (deep vein thrombosis): History of DVT and also with hypercoagulable state given metastatic carcinoma Hold Eliquis in setting of severe anemia and thrombocytopenia (13) Rheumatoid arthritis: Patient takes oxycodone 5 mg every 4 hours Verified with PDMP (14) DVT prophylaxis: SCD/TEDS Contraindicated in setting of severe anemia, thrombocytopenia Hold Eliquis Disposition: DC When Stable, ENT in office after DC Follow-up: PCP Dr. Larry upon discharge labs checked ROS-No Headache, No Visual Changes, No Nausea, No Vomiting, No Fever, No Chills, No Neck Pain or Stiffness, No Chest Pain, No Palpitations, No SOB, No TOMAS, No Cough, No Sputum, No Wheezing, No Abdominal Pain, No Diarrhea, No Hematemesis, No Hemoptysis, No Unexpected Weight Loss, No Flank pain, No Melena, No Hematochezia, No Frequency, No Urgency, No Burning, No Hematuria, No Rashes, No Diaphoresis. Appetite is Normal Physical Exam Gen-AAO x 3, NAD, Afebrile, Nasal Packed Head-NCAT, EOMI, PERRLA, Anicteric Sclera, No Posterior Pharyngeal Erythema Neck-Supple, No JVD, No Thyromegaly, No Masses, No LAD, No Bruits Lungs-Clear to Auscultation Bilaterally, No Rales, No Rhonchi, No Wheezing, No Crepitus Chest-No S4, +S1, +S2, No S3, No Murmurs, No Rubs, No Gallops, No Ectopy Abdomen-Soft, Bowel Sounds Present, Non Tender, Non Distended, No Hepatomegaly, No Splenomegaly, No Palpable Masses, No Rebound, No Rigidity, No Guarding Musculoskeletal-Full Range of Motion Bilaterally, No CVAT Extremities-No Cyanosis, No Clubbing, No Edema Nuero-Cranial Nerves II-XII grossly intact, Motor WNL, DTRs WNL, Strength WNL, Non Focal Psych-Normal Mood Results & Data Vital Signs (Past 12 Hours) Vital Signs Temp Pulse Pulse Resp BP Pulse Ox 03/30/19 07:13 68 18 94 03/30/19 07:08 36.6 C 75 22 170/81 H 95 03/30/19 05:22 36.6 C 67 20 159/83 H 94 03/30/19 03:42 67 20 90 03/29/19 23:45 88 03/29/19 23:28 36.5 C 81 22 164/75 H 96 03/29/19 21:52 83 22 90
[2019-03-30 07:43] LABS: Nucleated RBC # (auto) 0.64 K/uL (0-0); Nucleated RBC % (auto) 9.9 %
[2019-03-30 07:55] LABS: Hematocrit (blood only) 26.3 % (37-47); Hemoglobin 7.7 g/dL (12.0-16.0); Mean Corpuscular Hemoglobin 25.9 pg (25-34); Mean Corpuscular Hgb Conc 29.3 g/dL (32-36); Mean Corpuscular Volume 88.6 fL (80-100); RDW Coefficient of Variation 17.2 % (11.5-14.5); RDW Standard Deviation 55.3 fL (36.4-46.3); Red Blood Count 2.97 M/uL (4.2-5.4); White Blood Count 6.24 K/uL (4.8-10.8)
[2019-03-30 08:05] LABS: Platelet Count 46 K/uL (130-400); Platelet Estimate Decreased (Normal)
[2019-03-30] MEDS: FUROSEMIDE 40 MG in SYRINGE 0 ML IV SCH (08:27)
[2019-03-30] MEDS: LACTULOSE SYRUP 30 GM/45 ML UDP PO SCH (08:27)
[2019-03-30 08:28] LABS: BUN Creatinine Ratio 18.1 (10-20); Calcium 10.6 mg/dl (8.5-10.1); Creatinine Clr Calc Pharmacy 54.7 ml/min; Est GFR (African American) 47.5; Est GFR (Non-African American) 40.9; Magnesium 1.7 mg/dl (1.8-2.4); Phosphorus 3.9 mg/dl (2.5-4.9); Potassium 3.8 mmol/L (3.5-5.1)
[2019-03-30] MEDS: POTASSIUM CHLORIDE 20 MEQ/15 ML UDC PO SCH ×2 (08:28→19:37)
[2019-03-30] MEDS: INSULIN ASPART 100 UNITS/ML 3 ML PEN SC SCH ×4 (08:30→21:11)
[2019-03-30] MEDS: INSULIN GLARGINE SOLOSTAR 100 UNITS/ML 3 ML PEN SC SCH ×2 (08:31→21:11)
[2019-03-30] MEDS: MAGNESIUM OXIDE 400 MG TAB PO SCH ×3 (08:31→19:38)
[2019-03-30] MEDS: LANSOPRAZOLE 30 MG SOLTAB NG SCH ×2 (08:31→19:38)
[2019-03-30] MEDS: METOPROLOL TARTRATE 25 MG TAB PO SCH ×2 (08:31→20:07)
[2019-03-30] MEDS: FAMOTIDINE 20 MG in SYRINGE 3 ML IV SCH ×2 (08:36→20:08)
[2019-03-30 09:54] LABS: Base Excess ABG 22.8 mEq/L (-9-1.8); HCO3 ABG 50 mmol/L (19-24); PCO2 ABG 72 mmHg (35-46); PO2 ABG 74 mm/Hg (80-95); pH ABG 7.46 (7.35-7.45)
[2019-03-30 09:55] LABS: Allen Test Pos (Pos)
[2019-03-30] MEDS: LACTULOSE SYRUP 30 GM/45 ML UDP PO ONE ×2 (11:19→11:28)
--- NOTE | 2019-03-30 14:02 | Consultation Report ---
DATE OF CONSULTATION: 03/30/2019 HISTORY OF PRESENT ILLNESS: The patient was seen at her bedside today. Despite numerous progress notes asking for blood transfusion, the patient did not receive any packed red blood cells, but she did receive 2 units of platelets and her platelet count went from 23-46. Her hematocrit is stable at 26.3. I made the decision to remove her right nasal pack. The dressing and pack were removed. Pressure was applied for 5 minutes and there was no bleeding. There was no bloody postnasal drip. To ensure no further bleeding, Fibrillar was placed into the right nasal cavity along the septum. This material is absorbable and will come out on its own or be absorbed over time. Since this patient is no longer bleeding, I will sign off on this consultation. I would like to see the patient back in my office in approximately 2 weeks after discharge. Please note that I am no longer dispersion mixer this week. If she has any recurrent, severe epistaxis that requires ENT attention, you will need to call the cook barbecue dispersion mixer for this week. CESAR
[2019-03-30] MEDS: LACTULOSE SYRUP 10 GM/15 ML BTL 473 ML PO SCH ×2 (15:06→19:37)
[2019-03-30] MEDS ORDERED: FUROSEMIDE 60 MG in SYRINGE 0 ML IV ONE (16:59)
[2019-03-30] MEDS: AMLODIPINE BESYLATE 5 MG TAB PO SCH (19:36)
[2019-03-30] MEDS: FUROSEMIDE 60 MG in SYRINGE 0 ML IV SCH (20:08)
[2019-03-30] MEDS: ACETAMINOPHEN 325 MG TAB PO PRN (21:20)
[2019-03-31] MEDS: OXYCODONE HCL SOLN 5 MG/5 ML UDC NG PRN ×5 (00:18→20:10)
[2019-03-31] MEDS: AMPICILLIN/SULBACTAM SOD 3,000 MG in 0.9 % SODIUM CHLORIDE 100 ML IV SCH ×2 (02:35→08:34)
[2019-03-31] MEDS: PROMETHAZINE HCL 12.5 MG in SODIUM CHLORIDE 0.9% 50 ML IV PRN ×2 (03:34→10:25)
[2019-03-31] MEDS: ACETAMINOPHEN 325 MG TAB PO PRN ×2 (04:33→20:10)
[2019-03-31 07:22] LABS: Mean Corpuscular Hgb Conc 29.8 g/dL (32-36); Nucleated RBC # (auto) 0.39 K/uL (0-0); Nucleated RBC % (auto) 6.6 %
[2019-03-31] MEDS: LEVALBUTEROL HCL 0.63 MG/3 ML NEB NEB PRN ×2 (07:25→11:09)
--- NOTE | 2019-03-31 07:29 | Hospitalist Progress Note ---
Date of Service March 31, 2019 Assessment & Plan (1) Respiratory failure requiring intubation: (2) Acute on chronic respiratory failure with hypoxia and hypercapnia: (3) Epistaxis: (4) Severe anemia: (5) Thrombocythemia: This is a 63-year-old female who has significant past medical history of metastatic breast cancer to bone, T2 DM, HLD, obesity hypoventilation syndrome, right heart failure, chronic ITP, history of DVT anticoagulated on Eliquis, rheumatoid arthritis, depression who presents to ED at the recommendation of Dr. Light hematology oncology secondary to abnormal labs and epistaxis. In ED a nasal packing was placed trans-examic acid and bleeding has ceased. She did have a posterior pharynx blood clot that was removed by ENT. RN reported another clot today-Rec notifying ENT In ED patient remained hemodynamically stable. Her H&H was 5.6 and 18.7 with platelet count of 15 BUN/creatinine 41 and 1.15, glucose 184, alk phos 121, albumin 2.4, corrected calcium 11.2, mag 1.7 She was transfused 2 units PRBC. Now in PCU-Patient Extubated. Was unable to wear BIPAP sec to nasal packing so her PCO2 lexy Transfuse PRBC and pack of platelets as needed trend cbc monitor volume status closely On 03/30 Fr Viv-ENT removed the packing, Fibrillar was placed into the right nasal cavity along the septum. This material is absorbable and will come out on its own or be absorbed over time. Since this patient is no longer bleeding, I will sign off on this consultation. I would like to see the patient back in my office in approximately 2 weeks after discharge. Hold Eliquis Needed 2 units of Platelets 03/29, Became SOB and was given 80 IV Lasix continue IV Unasyn stopped on 03/31 (6) CKD (chronic kidney disease), stage III: Follow BMP (7) Metastatic breast cancer: Metastatic breast cancer to bone, lung Follows Dr. Light Receiving Xgeva and Faslodex -treatments held given thrombocytopenia oxycodone for metastatic pain - verified in pdmp (8) Right-sided heart failure: Chronic right sided heart failure Echo 09/04/2018 revealed normal LVEF, grade 1 diastolic dysfunction, right ventricular cavity dilated with diffuse right ventricular hypokinesis Monitor volume status closely given transfusion Patient prescribed O2 2 L at home daily weight strict I and O (9) Hyperammonemia: Lactulose per critical care (10) TYE (obstructive sleep apnea): CPAP/BiPAP at bedtime if able when extubated Currently unable to tolerate given nasal packing Continue oxygen via oxygen mask (11) DM type 2 (diabetes mellitus, type 2): 01/07/19 A1c 9.2 Lantus/NovoLog per protocol Repeat A1c in a.m. (12) History of DVT (deep vein thrombosis): History of DVT and also with hypercoagulable state given metastatic carcinoma Hold Eliquis in setting of severe anemia and thrombocytopenia (13) Rheumatoid arthritis: Patient takes oxycodone 5 mg every 4 hours Verified with PDMP (14) DVT prophylaxis: SCD/TEDS Contraindicated in setting of severe anemia, thrombocytopenia Hold Eliquis Disposition: DC in 2-3 days if bleeding stopped and stable, Send home on O2, ENT in office after 2 weeks after DC with Dr Nam, call ENT director of labor relations if any issues. Follow-up: PCP Dr. Larry upon discharge labs checked ROS-No Headache, No Visual Changes, No Nausea, No Vomiting, No Fever, No Chills, No Neck Pain or Stiffness, No Chest Pain, No Palpitations, No SOB, No TOMAS, No Cough, No Sputum, No Wheezing, No Abdominal Pain, No Diarrhea, No Hematemesis, No Hemoptysis, No Unexpected Weight Loss, No Flank pain, No Melena, No Hematochezia, No Frequency, No Urgency, No Burning, No Hematuria, No Rashes, No Diaphoresis. Appetite is Normal Physical Exam Gen-AAO x 3, NAD, Afebrile, Nasal Packing out, obese Head-NCAT, EOMI, PERRLA, Anicteric Sclera, No Posterior Pharyngeal Erythema Neck-Supple, No JVD, No Thyromegaly, No Masses, No LAD, No Bruits Lungs-Clear to Auscultation Bilaterally, No Rales, No Rhonchi, No Wheezing, No Crepitus Chest-No S4, +S1, +S2, No S3, No Murmurs, No Rubs, No Gallops, No Ectopy Abdomen-Soft, Bowel Sounds Present, Non Tender, Non Distended, No Hepatomegaly, No Splenomegaly, No Palpable Masses, No Rebound, No Rigidity, No Guarding Musculoskeletal-Full Range of Motion Bilaterally, No CVAT Extremities-No Cyanosis, No Clubbing, mild Edema Nuero-Cranial Nerves II-XII grossly intact, Motor WNL, DTRs WNL, Strength WNL, Non Focal Psych-Normal Mood Results & Data Vital Signs (Past 12 Hours) Vital Signs Temp Pulse Pulse Resp BP Pulse Ox 03/31/19 07:27 83 18 90 03/31/19 02:47 75 22 98 03/31/19 00:00 36.6 C 75 20 145/76 H 92 03/30/19 23:18 36.7 C 75 20 136/82 98 03/30/19 21:48 78 22 97
[2019-03-31 07:32] LABS: Hematocrit (blood only) 29.9 % (37-47); Hemoglobin 8.9 g/dL (12.0-16.0); Mean Corpuscular Hemoglobin 26.3 pg (25-34); Mean Corpuscular Volume 88.2 fL (80-100); RDW Coefficient of Variation 17.4 % (11.5-14.5); RDW Standard Deviation 55.6 fL (36.4-46.3); Red Blood Count 3.39 M/uL (4.2-5.4); White Blood Count 5.93 K/uL (4.8-10.8)
[2019-03-31 07:33] LABS: INR 1.2 (0.9-1.1); Prothrombin Time 11.8 Seconds (9.0-12.0)
[2019-03-31 07:46] LABS: Platelet Count 44 K/uL (130-400)
[2019-03-31 07:47] LABS: Platelet Estimate SIGNIFIC DECREASED (Normal)
[2019-03-31 07:56] LABS: Albumin Globulin Ratio 0.6 (0.9-2); Albumin Level 2.7 gm/dl (3.4-5.0); BUN Creatinine Ratio 19.5 (10-20); Calcium 10.4 mg/dl (8.5-10.1); Creatinine Clr Calc Pharmacy 41.7 ml/min; Est GFR (African American) 36.6; Est GFR (Non-African American) 31.5; Globulin 4.7 gm/dl (2.5-4.0); Magnesium 1.8 mg/dl (1.8-2.4); Potassium 3.6 mmol/L (3.5-5.1); Total Protein 7.4 gm/dl (6.4-8.2)
[2019-03-31 08:06] LABS: Phosphorus 3.3 mg/dl (2.5-4.9)
[2019-03-31] MEDS: AMLODIPINE BESYLATE 5 MG TAB PO SCH (08:28)
[2019-03-31] MEDS: LANSOPRAZOLE 30 MG SOLTAB NG SCH ×2 (08:28→20:13)
[2019-03-31] MEDS: MAGNESIUM OXIDE 400 MG TAB PO SCH ×3 (08:29→20:11)
[2019-03-31] MEDS: FUROSEMIDE 60 MG in SYRINGE 0 ML IV SCH (08:29)
[2019-03-31] MEDS: INSULIN ASPART 100 UNITS/ML 3 ML PEN SC SCH ×4 (08:30→20:24)
[2019-03-31] MEDS: LACTULOSE SYRUP 10 GM/15 ML BTL 473 ML PO SCH ×3 (08:31→20:11)
[2019-03-31] MEDS: INSULIN GLARGINE SOLOSTAR 100 UNITS/ML 3 ML PEN SC SCH ×2 (08:31→20:24)
[2019-03-31] MEDS: POTASSIUM CHLORIDE 20 MEQ/15 ML UDC PO SCH ×2 (08:31→20:11)
[2019-03-31] MEDS: FAMOTIDINE 20 MG in SYRINGE 3 ML IV SCH ×2 (09:11→20:12)
[2019-03-31] MEDS: METOPROLOL TARTRATE 25 MG TAB PO SCH (09:11)
[2019-03-31 09:23] LABS: Base Excess ABG 25.1 mEq/L (-9-1.8); HCO3 ABG 50 mmol/L (19-24); Oxygen Saturation ABG 91.6 % (90-95); PCO2 ABG 54 mmHg (35-46); PO2 ABG 63 mm/Hg (80-95)
[2019-03-31 09:35] LABS: Allen Test Pos (Pos); pH ABG 7.58 (7.35-7.45)
[2019-03-31] MEDS ORDERED: dilTIAZem HCl 5 MG/ML 5 ML VIAL IV ONE (09:43)
[2019-03-31] MEDS ORDERED: SODIUM CHLORIDE 0.9% 1000ML 250 ML IV ONE (09:47)
[2019-03-31] MEDS ORDERED: dilTIAZem HCl 5 MG/ML 5 ML VIAL IV STA ×3 (09:50→10:25)
[2019-03-31] MEDS: dilTIAZem HCL 125 MG in DEXTROSE 5% 100 ML IV SCH (10:24)
--- NOTE | 2019-03-31 10:30 | Pulmonology Progress Note ---
Date of Service March 31, 2019 Assessment & Plan (1) Acute on chronic respiratory failure with hypoxia and hypercapnia: --Respiratory status patient is back at baseline. Patient has complex metabolic alkalosis likely secondary to diuretic use on top of compensation for chronic hypercapnia, chronic respiratory acidosis secondary likely OHS plus central component secondary to use of opioid for her pain. Today's ABG shows pH of 7.58/54/63/91.6% on 2 L nasal cannula Recommend holding furosemide and starting acetazolamide 250 mg twice daily for total of 6 doses which will help with the metabolic alkalosis that the patient has and improve her central drive. Can resume furosemide after acetazolamide dose has concluded Careful with diuresis given that the patient has pulmonary hypertension type II --TYE/OHS Continue with BiPAP 12/8 with 40% FiO2 nightly and as needed shortness of breath Patient is unsure of her CPAP settings at home. Patient will need a backup rate for her CPAP/BiPAP at home given that she takes opioids for her pain. 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 No acute distress, no adverse events overnight. Patient denies any shortness of breath. No chest pain, no headache, no nausea or vomiting. Patient said that she used her CPAP overnight. Eating well. Denies any epistaxis. No hemoptysis. Patient was saturating 92% on 2 L nasal cannula with heart rate of 89 at rest at the time of examination. Patient states that she was recently diagnosed with TYE and was provided with sleep apnea machine 2 weeks ago she has been using it but not as advised approximately 4 hours a day. Importance of using it more than 5 hours whenever sleep continues to be explained to the patient. Review of Systems Review of Systems: All systems reviewed & are unremarkable except as noted in HPI & below Physical Exam Physical Exam: Constitutional: No acute distress HEENT: EOMI, PERRLA Respiratory system: Decreased air entry bilaterally, mild crackles bilateral lower lobes, no wheeze, no rhonchi CVS: S1-S2 positive, no murmurs or gallops, accentuated P2 Abdomen: Soft, nontender, nondistended, positive bowel sounds x4 Extremities: +2 pulses bilaterally radialis/ dorsalis pedis, no cyanosis, no edema-pruning of the skin bilateral lower extremity appreciated Neuro: Awake alert oriented x3 Psych: Normal mood and affect G/U: No Ta Skin: no rashes, warm and dry Lymphatic: no cervical or axillary lymphadenopathy Results & Data Vital Signs (Past 12 Hours) Vital Signs Temp Pulse Pulse Resp BP Pulse Ox 03/31/19 08:00 130 H 20 03/31/19 07:27 83 18 90 03/31/19 06:58 36.7 C 74 20 154/76 H 91 03/31/19 02:47 75 22 98 03/31/19 00:00 36.6 C 75 20 145/76 H 92 03/30/19 23:18 36.7 C 75 20 136/82 98 03/31/19 07:13 03/31/19 07:13 PG Care Time/CCT Total # of Minutes Spent Total Time Spent with Patient: Total time spent is greater than 50% in coordination of care (as documented) at patient's floor/unit and/or counseling patient:
[2019-03-31] MEDS: NSS + 20MEQ KCL 20 MEQ/1,000 ML BAG IV SCH ×2 (11:24→20:00)
[2019-03-31] MEDS ORDERED: METOPROLOL SUCC 25MG EXT REL TAB PO STA (12:32)
--- NOTE | 2019-03-31 14:05 | Cardiology Consultation ---
Date of Consultation March 31, 2019 Assessment & Plan (1) Atrial fibrillation with rapid ventricular response: Patient currently hemodynamically stable but heart rates fast IV diltiazem infusing Will increase beta-juan dosing continue IV diltiazem If any hemodynamic instability or failure to control consider urgent cardioversion Patient with acute contraindications anticoagulation as noted We will review recent echocardiogram Supplement potassium and fluids as already planned (2) TYE treated with BiPAP: (3) Respiratory failure requiring intubation: (4) Thrombocythemia: (5) Epistaxis: (6) Right-sided heart failure: History of Present Illness Reason for Consultation: Atrial fibrillation with rapid response Requesting Physician: Dr Sena Attending Physician: Frandy Sena, DO History of Present Illness Patient is a complex 63-year-old female with ongoing and chronic medical issues as listed below lapsed into atrial fibrillation earlier today with rapid response. Chronic medical issues include 1. Chronic right heart failure with preserved LV systolic function 2. Obstructive sleep apnea/obesity hypoventilation treated with BiPAP 3. Chronic renal insufficiency 4. Hypertension 5. Breast carcinoma with metastases to bone and hepatic 6. Chronic thrombocytopenia 7. Past DVT previously on anticoagulation with Eliquis Patient admitted currently due to severe epistaxis and subsequently developed acute on chronic respiratory failure requiring transient intubation. Patient is an recovery phase and gradually improving however this morning lapsed into atrial fibrillation with rapid response She is referred now for further evaluation Patient notes dyspnea but is unaware of tachypalpitations. Notes no syncope or near syncope. Notes no prior history of neurologic complaints TIA or stroke. Anticoagulation currently contraindicated due to multiple issues including recent life-threatening epistaxis and thrombocytopenia Patient mildly nauseated. She has received IV diltiazem with some slowing of heart rates. Allergies Allergy/AdvReac Type Severity Reaction Status Date / Time gabapentin AdvReac Hallucinati Verified 03/24/19 14:13 ng Home Medications Home Medications Medication Instructions Recorded Confirmed Type fexofenadine [Rocio Allergy] 180 mg PO QAM 03/05/18 03/24/19 History Lantus Solostar U-100 Insulin See Rx Instructions .ROUTE 05/16/18 03/24/19 Rx .COMPLEX #15 ml metoprolol succinate 25 mg PO BID #60 ea 05/16/18 03/24/19 Rx Eliquis 5 mg PO BID 01/06/19 03/24/19 History Xgeva 120 mg SUBCUT MONTHLY 01/06/19 03/24/19 History fulvestrant [Faslodex] 250 mg IM Q14D 01/06/19 03/24/19 History hydroxyzine HCl 25 mg PO BID 01/06/19 03/24/19 History omeprazole 20 mg PO BID 01/06/19 03/24/19 History torsemide 20 mg PO DAILY PRN 01/06/19 03/24/19 History insulin aspart U-100 [Novolog 0 unit SUBCUT UD 03/24/19 03/24/19 History Flexpen U-100 Insulin] oxycodone 5 mg PO Q4 03/24/19 03/24/19 History Patient History Medical History ATN (acute tubular necrosis) (Resolved) Breast cancer metastasized to bone (Inactive) Chronic kidney disease (Inactive) CKD (chronic kidney disease), stage III (Chronic) DM type 2 (diabetes mellitus, type 2) (Chronic) History of DVT (deep vein thrombosis) (Chronic) Hyperlipidemia (Chronic) Hypertension (Chronic) Irritable bowel syndrome (Chronic) Metastatic breast cancer (Chronic) Obesity hypoventilation syndrome (Chronic) TYE (obstructive sleep apnea) (Chronic) Osteoarthritis (Chronic) Rheumatoid arthritis (Inactive) Rheumatoid arthritis (Chronic) Right-sided heart failure (Chronic) Thrombocytopenia (Chronic) Surgical History History of hernia repair (Chronic) Family History Mother Stroke Diabetes Father Diabetes Social History Preferred Language: Greek Communication Ability: Effective Visual Impairment: No Limitations Manager Integrity Required: No Beliefs That Will Affect Care: Gnosticist Gnosticist Beliefs: Restorationist marital status: Current Living Situation: Spouse Other Information That Helps Us Care for You: No Feels Safe at Home: Yes Safety Concerns: Feels Safe At This Time Smoking Status: Never smoker Second Hand Exposure: No ; Hx Alcohol Use: No Hx Substance Use: No Review of Systems Review of Systems: All systems reviewed & are unremarkable except as noted in HPI & below Physical Exam Constitutional: + ill appearing Tachycardic but in no acute distress Eyes: PERRL, conjunctivae normal, anicteric sclerae ENMT: external ear and nose normal, oropharynx normal Neck: + thick neck Respiratory: Auscultation: + diminished lung sounds Cardiovascular: Rate/Rhythm: + tachycardic and + irregularly irregular Heart Sounds: normal S1 and normal S2 Vessels: no JVD Extremities: no edema Gastrointestinal (Abdomen): normal bowel sounds, soft, nontender, no hepatosplenomegaly Skin: no rashes, warm and dry Psychiatric: A+Ox3, euthymic affect Results & Data Vital Signs (Past 12 Hours) Vital Signs Temp Pulse Pulse Resp BP Pulse Ox 03/31/19 11:36 130 H 03/31/19 11:09 105 H 20 95 03/31/19 10:51 36.5 C 96 H 24 120/74 96 03/31/19 10:25 151 H 108/71 03/31/19 08:00 130 H 20 03/31/19 07:27 83 18 90 03/31/19 06:58 36.7 C 74 20 154/76 H 91 03/31/19 02:47 75 22 98 Laboratory Results Laboratory Results - last 24 hr 03/30/19 03/30/19 03/31/19 16:12 20:35 07:05 WBC RBC Hgb Hct MCV MCH MCHC RDW Std Deviation RDW Coeff of Flori Plt Count Absolute Nucleated RBC Nucleated RBC % (auto) Platelet Estimate PT INR ABG pH ABG pCO2 ABG pO2 ABG HCO3 ABG O2 Saturation ABG Base Excess Robert Test Barometric Pressure Oxygen Given Sodium Potassium Chloride Carbon Dioxide Anion Gap BUN Creatinine Est Cr Clr Drug Dosing Est GFR ( Amer) Est GFR (Non-Af Amer) BUN/Creatinine Ratio Glucose POC Glucose 154 H 223 H 199 H Calcium Phosphorus Magnesium Total Bilirubin AST ALT Alkaline Phosphatase Ammonia Total Protein Albumin Globulin Albumin/Globulin Ratio 03/31/19 03/31/19 03/31/19 07:13 07:13 07:13 WBC 5.93 RBC 3.39 L Hgb 8.9 L Hct 29.9 L MCV 88.2 MCH 26.3 MCHC 29.8 L RDW Std Deviation 55.6 H RDW Coeff of Flori 17.4 H Plt Count 44 L Absolute Nucleated RBC 0.39 H Nucleated RBC % (auto) 6.6 Platelet Estimate SIGNIFIC DECREASED PT 11.8 INR 1.2 H ABG pH ABG pCO2 ABG pO2 ABG HCO3 ABG O2 Saturation ABG Base Excess Robert Test Barometric Pressure Oxygen Given Sodium 140 Potassium 3.6 Chloride 91 L Carbon Dioxide 48 H* Anion Gap 2.0 L BUN 33 H Creatinine 1.70 H D Est Cr Clr Drug Dosing 41.7 Est GFR ( Amer) 36.6 Est GFR (Non-Af Amer) 31.5 BUN/Creatinine Ratio 19.5 Glucose 151 H POC Glucose Calcium 10.4 H Phosphorus 3.3 Magnesium 1.8 Total Bilirubin 1.0 AST 43 H ALT 14 Alkaline Phosphatase 126 H Ammonia Total Protein 7.4 Albumin 2.7 L Globulin 4.7 H Albumin/Globulin Ratio 0.6 L 03/31/19 03/31/19 03/31/19 07:13 09:13 11:12 WBC RBC Hgb Hct MCV MCH MCHC RDW Std Deviation RDW Coeff of Flori Plt Count Absolute Nucleated RBC Nucleated RBC % (auto) Platelet Estimate PT INR ABG pH 7.58 H* ABG pCO2 54 H ABG pO2 63 L ABG HCO3 50 H ABG O2 Saturation 91.6 ABG Base Excess 25.1 H Robert Test Pos Barometric Pressure 725.8 Oxygen Given 2L Sodium Potassium Chloride Carbon Dioxide Anion Gap BUN Creatinine Est Cr Clr Drug Dosing Est GFR ( Amer) Est GFR (Non-Af Amer) BUN/Creatinine Ratio Glucose POC Glucose 173 H Calcium Phosphorus Magnesium Total Bilirubin AST ALT Alkaline Phosphatase Ammonia 47.0 H Total Protein Albumin Globulin Albumin/Globulin Ratio
[2019-03-31] MEDS: acetaZOLAMIDE 250 MG TAB PO SCH (20:11)
[2019-03-31] MEDS: METOPROLOL SUCC 25MG EXT REL TAB PO SCH (20:12)
[2019-03-31] MEDS ORDERED: acetaZOLAMIDE 250 MG in DEXTROSE 5% 100 ML IV SCH (21:00)
[2019-04-01] MEDS: OXYCODONE HCL SOLN 5 MG/5 ML UDC NG PRN ×3 (00:10→20:33)
[2019-04-01] MEDS: ACETAMINOPHEN 325 MG TAB PO PRN ×3 (00:11→20:33)
[2019-04-01] MEDS: OLANZapine 10 MG/2.1 ML SDV IM PRN (00:12)
[2019-04-01] MEDS: dilTIAZem HCL 125 MG in DEXTROSE 5% 100 ML IV SCH (03:32)
[2019-04-01] MEDS: NSS + 20MEQ KCL 20 MEQ/1,000 ML BAG IV SCH (03:33)
[2019-04-01 06:31] LABS: Albumin Level 2.5 gm/dl (3.4-5.0); BUN Creatinine Ratio 19.9 (10-20); Bilirubin,Total 0.8 mg/dl (0.2-1); Calcium 9.9 mg/dl (8.5-10.1); Creatinine Clr Calc Pharmacy 41.5 ml/min; Est GFR (African American) 36.3; Est GFR (Non-African American) 31.3; Globulin 4.6 gm/dl (2.5-4.0); Total Protein 7.1 gm/dl (6.4-8.2)
[2019-04-01 07:50] LABS: Mean Corpuscular Hgb Conc 29.5 g/dL (32-36); Nucleated RBC # (auto) 0.43 K/uL (0-0); Nucleated RBC % (auto) 6.9 %
[2019-04-01 07:55] LABS: Hematocrit (blood only) 27.5 % (37-47); Hemoglobin 8.1 g/dL (12.0-16.0); Mean Corpuscular Volume 88.1 fL (80-100); RDW Standard Deviation 56.4 fL (36.4-46.3); Red Blood Count 3.12 M/uL (4.2-5.4); White Blood Count 6.26 K/uL (4.8-10.8)
[2019-04-01 08:12] LABS: Basophils # (auto) 0.08 K/uL (0-0.2); Basophils % (auto) 1.3 %; Eosinophils # (auto) 0.29 K/uL (0-0.5); Eosinophils % (auto) 4.6 %; Immature Granulocytes # (auto) 0.27 K/uL (0.00-0.02); Immature Granulocytes % (auto) 4.3 %; Monocytes # (auto) 0.37 K/uL (0.11-0.59); Monocytes % (auto) 5.9 %; Neutrophils # (auto) 4.75 K/uL (1.4-6.5); Neutrophils % (auto) 75.9 %; Platelet Count 30 K/uL (130-400)
[2019-04-01] MEDS: INSULIN ASPART 100 UNITS/ML 3 ML PEN SC SCH ×4 (08:33→20:38)
[2019-04-01] MEDS: METOPROLOL SUCC 25MG EXT REL TAB PO SCH (08:34)
[2019-04-01] MEDS: acetaZOLAMIDE 250 MG TAB PO SCH ×2 (08:34→20:34)
[2019-04-01] MEDS: MAGNESIUM OXIDE 400 MG TAB PO SCH ×3 (08:34→20:35)
[2019-04-01] MEDS: LACTULOSE SYRUP 10 GM/15 ML BTL 473 ML PO SCH ×3 (08:35→20:32)
[2019-04-01] MEDS: POTASSIUM CHLORIDE 20 MEQ/15 ML UDC PO SCH ×2 (08:35→20:32)
[2019-04-01] MEDS: INSULIN GLARGINE SOLOSTAR 100 UNITS/ML 3 ML PEN SC SCH ×2 (08:35→20:36)
[2019-04-01] MEDS: LANSOPRAZOLE 30 MG SOLTAB NG SCH ×2 (08:36→20:35)
[2019-04-01] MEDS: FAMOTIDINE 20 MG in SYRINGE 3 ML IV SCH ×2 (08:38→20:58)
[2019-04-01] MEDS: AMLODIPINE BESYLATE 5 MG TAB PO SCH (09:36)
--- NOTE | 2019-04-01 09:59 | Pulmonology Progress Note ---
Date of Service April 01, 2019 Assessment & Plan (1) Acute on chronic respiratory failure with hypoxia and hypercapnia: --Respiratory status patient is back at baseline. Patient has complex metabolic alkalosis likely secondary to diuretic use on top of compensation for chronic hypercapnia, chronic respiratory acidosis secondary likely OHS plus central component secondary to use of opioid for her pain. Today's ABG shows pH of 7.58/54/63/91.6% on 2 L nasal cannula Furosemide on hold, currently on acetazolamide 250 mg twice daily for total of 6 doses which will help with the metabolic alkalosis that the patient has and improve her central drive. Can resume furosemide after acetazolamide dose has concluded Judicious diuresis given that the patient has pulmonary hypertension type II No further intervention from pulmonary perspective. Recall if needed. --TYE/OHS Continue with BiPAP 03/22 with 40% FiO2 nightly and as needed shortness of breath Patient is unsure of her CPAP settings at home. Patient will need a backup rate for her CPAP/BiPAP at home given that she takes opioids for her pain. Patient has nasal pillow CPAP at home. For the time being recommend full-face CPAP given that the patient had epistaxis. Use humidified oxygen. 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 No acute distress, no adverse events overnight. Patient had new onset A. fib with RVR yesterday in the afternoon. Right now is rate controlled. Cardiology following. Patient states that she is feeling much better. Shortness of breath is improved. Denies any chest pain. No palpitations. Urinating well. Patient has a Ta catheter in place. No epistaxis, no hemoptysis. Complains of stuffy nose. Used BiPAP overnight. At the time of examination patient was saturating 92% on 4 L nasal cannula with heart rate of 79 at rest. Review of Systems Review of Systems: All systems reviewed & are unremarkable except as noted in HPI & below Physical Exam Physical Exam: Constitutional: No acute distress HEENT: EOMI, PERRLA Respiratory system: Decreased air entry bilaterally, mild crackles bilateral lower lobes, no wheeze, no rhonchi CVS: S1-S2 positive, no murmurs or gallops, accentuated P2, irregular Abdomen: Soft, nontender, nondistended, positive bowel sounds x4 Extremities: +2 pulses bilaterally radialis/ dorsalis pedis, no cyanosis, no edema-pruning of the skin bilateral lower extremity appreciated Neuro: Awake alert oriented x3 Psych: Normal mood and affect G/U: Positive Ta Skin: no rashes, warm and dry Lymphatic: no cervical or axillary lymphadenopathy Results & Data Vital Signs (Past 12 Hours) Vital Signs Temp Pulse Pulse Resp BP Pulse Ox 04/01/19 07:10 36.5 C 74 26 H 190/73 H 99 04/01/19 04:02 36.6 C 71 21 135/81 98 04/01/19 03:40 72 19 98 03/31/19 23:03 36.7 C 71 18 137/77 98 03/31/19 22:19 75 26 H 98 04/01/19 07:29 04/01/19 05:38 PG Care Time/CCT Total # of Minutes Spent Total Time Spent with Patient: Total time spent is greater than 50% in coordination of care (as documented) at patient's floor/unit and/or counseling patient:
[2019-04-01 10:04] LABS: Phosphorus 3.6 mg/dl (2.5-4.9)
[2019-04-01 11:41] LABS: Albumin Globulin Ratio 0.5 (0.9-2)
[2019-04-01] MEDS ORDERED: METOPROLOL SUCC 25MG EXT REL TAB PO STA (11:42)
--- NOTE | 2019-04-01 11:50 | Hospitalist Progress Note ---
Date of Service April 01, 2019 Assessment & Plan (1) Epistaxis: (1) Respiratory failure requiring intubation: (2) Acute on chronic respiratory failure with hypoxia and hypercapnia: (3) Epistaxis: (4) Severe anemia: (5) Thrombocythemia: per Dr. Sena's notes: This is a 63-year-old female who has significant past medical history of metastatic breast cancer to bone, T2 DM, HLD, obesity hypoventilation syndrome, right heart failure, chronic ITP, history of DVT anticoagulated on Eliquis, rheumatoid arthritis, depression who presents to ED at the recommendation of Dr. Light hematology oncology secondary to abnormal labs and epistaxis. In ED a nasal packing was placed trans-examic acid and bleeding has ceased. She did have a posterior pharynx blood clot that was removed by ENT. RN reported another clot today-Rec notifying ENT In ED patient remained hemodynamically stable. Her H&H was 5.6 and 18.7 with platelet count of 15 BUN/creatinine 41 and 1.15, glucose 184, alk phos 121, albumin 2.4, corrected calcium 11.2, mag 1.7 She was transfused 2 units PRBC. On 03/30 Fr Viv-ENT removed the packing, Fibrillar was placed into the right nasal cavity along the septum. This material is absorbable and will come out on its own or be absorbed over time. Ff up approximately 2 weeks after discharge. Held Eliquis, Needed 2 units of Platelets 03/29, IV Unasyn stopped on 03/31 -- no recurrence of epistaxis -- continue to monitor New-onset atrial fibrillation --Resolved Back to sinus rhythm Diltiazem drip discontinued, continue metoprolol succinate 50 mg p.o. twice a day Anticoagulation indicated Cardiology consult appreciated (6) CKD (chronic kidney disease), stage III: Stable (7) Metastatic breast cancer: As per Dr. Sena's notes: Metastatic breast cancer to bone, lung Follows Dr. Light Receiving Xgeva and Faslodex -treatments held given thrombocytopenia oxycodone for metastatic pain - verified in pdmp (8) Right-sided heart failure: Chronic right sided heart failure Echo 09/04/2018 revealed normal LVEF, grade 1 diastolic dysfunction, right ventricular cavity dilated with diffuse right ventricular hypokinesis Monitor volume status closely given transfusion Patient prescribed O2 2 L at home --Lasix held secondary to alkalosis Acetazolamide twice a day to be given times x6 days, then resume Lasix (9) Hyperammonemia: Lactulose (10) TYE (obstructive sleep apnea): per Pulmonary SVC:Patient will need a backup rate for her CPAP/BiPAP at home given that she takes opioids for her pain. Patient has nasal pillow CPAP at home. For the time being recommend full-face CPAP given that the patient had epistaxis. Use humidified oxygen. (11) DM type 2 (diabetes mellitus, type 2): 01/07/19 A1c 9.2 Lantus/NovoLog per protocol Repeat A1c 5.8 (12) History of DVT (deep vein thrombosis): History of DVT and also with hypercoagulable state given metastatic carcinoma Hold Eliquis in setting of severe anemia and thrombocytopenia (13) Rheumatoid arthritis: Patient takes oxycodone 5 mg every 4 hours Verified with PDMP (14) DVT prophylaxis: SCD/TEDS Contraindicated in setting of severe anemia, thrombocytopenia Hold Eliquis Disposition: will need portable home on O2, ENT in office after 2 weeks after DC with Dr Nam Subjective Follow-up for epistaxis, atrial fibrillation Seen sitting up in bed, comfortable, in good spirits She feels improved Denies chest pain, palpitations, dizziness, shortness of breath No recurrence of epistaxis for the past 2 days No other symptoms Review of Systems Review of Systems: All systems reviewed & are unremarkable except as noted in HPI & below Physical Exam Physical Exam: General- oriented x 3, not in distress, speaks in sentences with no effort or accessory muscle use Head- atraumatic Nose-no signs of bleeding Eyes- PERRL, EOMI, anicteric ENT- oropharynx clear Neck- supple, no JVD, no adenopathy, no thyromegaly; carotids +2/2, no bruits appreciated Lungs- clear to auscultation bilaterally, no rales/wheezes Heart- normal rate, regular rhythm; no murmur, no gallop, no rub appreciated Abdomen- normal bowel sounds, nondistended, soft, nontender, no masses or hepatosplenomegaly Extremities- no pretibial edema, no calf tenderness; peripheral pulses intact Neuro- alert, oriented x 3; CN 2-12 grossly intact; motor 5/5 bilaterally;sensation 100% on all extremities; no other gross focal neurologic deficits Skin- warm & dry Results & Data Vital Signs (Past 12 Hours) Vital Signs Temp Pulse Pulse Resp BP Pulse Ox 04/01/19 11:21 36.5 C 72 20 156/81 H 94 04/01/19 07:10 36.5 C 74 26 H 190/73 H 99 04/01/19 04:02 36.6 C 71 21 135/81 98 04/01/19 03:40 72 19 98 Laboratory Results Laboratory Results - last 24 hr 03/31/19 04/01/19 04/01/19 20:23 05:38 05:38 WBC Cancelled RBC Cancelled Hgb Cancelled Hct Cancelled MCV Cancelled MCH Cancelled MCHC Cancelled RDW Std Deviation Cancelled RDW Coeff of Flori Cancelled Plt Count Cancelled MPV Cancelled Immature Gran % (Auto) Cancelled Neut % (Auto) Cancelled Lymph % (Auto) Cancelled [place] % (Auto) Cancelled Eos % (Auto) Cancelled Baso % (Auto) Cancelled Immature Gran # (Auto) Cancelled Neut # (Auto) Cancelled Lymph # (Auto) Cancelled [place] # (Auto) Cancelled Eos # (Auto) Cancelled Baso # (Auto) Cancelled Absolute Nucleated RBC Cancelled Nucleated RBC % (auto) Cancelled Neutrophils % (Manual) Cancelled Band Neutrophils % Cancelled Lymphocytes % (Manual) Cancelled Prolymphocyte % Cancelled Reactive Lymphs % (Man) Cancelled Monocytes % (Manual) Cancelled Eosinophils % (Manual) Cancelled Basophils % (Manual) Cancelled Metamyelocytes % (Man) Cancelled Myelocytes % (Man) Cancelled Promyelocytes % (Man) Cancelled Blast Cells % (Manual) Cancelled Plasma Cell % (Manual) Cancelled Other Cells % Cancelled Nucleated RBC % Cancelled Neutrophils # (Manual) Cancelled Band Neutrophils # Cancelled Total Absolute Neuts Cancelled Lymphocytes # (Manual) Cancelled Prolymphocyte # Cancelled Reactive Lymphs # Cancelled Total Abs Lymphocytes Cancelled Monocytes # (Manual) Cancelled Eosinophils # (Manual) Cancelled Basophils # (Manual) Cancelled Metamyelocytes # (Man) Cancelled Myelocytes # (Manual) Cancelled Promyelocytes # (Man) Cancelled Blast Cells # (Man) Cancelled Plasma Cell # (Manual) Cancelled Other Cells # Cancelled Nucleated RBCs # (Man) Cancelled Hypersegmented Neuts Cancelled Hyposegmented Neuts Cancelled Hypogranular Neuts Cancelled Large Granular Lymphs Cancelled # Lrg Granular Lymphs Cancelled Hairy Cells Cancelled Smudge Cells Cancelled Toxic Granulation Cancelled Toxic Vacuolation Cancelled Dohle Bodies Cancelled Redd Rods Cancelled Platelet Estimate Cancelled Hypogranular Platelets Cancelled Clumped Platelets Cancelled Giant Platelets Cancelled Platelet Satelliting Cancelled RBC Morphology Cancelled Polychromasia Cancelled Hypochromasia Cancelled Poikilocytosis Cancelled Basophilic Stippling Cancelled Anisocytosis Cancelled Microcytosis Cancelled Macrocytosis Cancelled Spherocytes Cancelled Pappenheimer Bodies Cancelled Sickle Cells Cancelled Target Cells Cancelled Tear Drop Cells Cancelled Ovalocytes Cancelled Stomatocytes Cancelled [place] Bodies Cancelled Echinocytes Cancelled Acanthocytes (Spur) Cancelled Rouleaux Cancelled RBC Agglutinates Cancelled Schistocytes Cancelled RBC Morph Comment Cancelled Sezary Cell Cancelled Sodium 141 Potassium 4.0 Chloride 96 L Carbon Dioxide 41 H* Anion Gap 4.0 BUN 34 H Creatinine 1.71 H Est Cr Clr Drug Dosing 41.5 Est GFR ( Amer) 36.3 Est GFR (Non-Af Amer) 31.3 BUN/Creatinine Ratio 19.9 Glucose 144 H POC Glucose 182 H Calcium 9.9 Phosphorus 3.6 Magnesium 2.0 Total Bilirubin 0.8 AST 178 H ALT 17 Alkaline Phosphatase 132 H Ammonia Total Protein 7.1 Albumin 2.5 L Globulin 4.6 H Albumin/Globulin Ratio 0.5 L 04/01/19 04/01/19 04/01/19 05:42 07:08 07:29 WBC 6.26 RBC 3.12 L Hgb 8.1 L Hct 27.5 L MCV 88.1 MCH 26.0 MCHC 29.5 L RDW Std Deviation 56.4 H RDW Coeff of Flori 18.0 H Plt Count 30 L MPV Immature Gran % (Auto) 4.3 Neut % (Auto) 75.9 Lymph % (Auto) 8.0 [place] % (Auto) 5.9 Eos % (Auto) 4.6 Baso % (Auto) 1.3 Immature Gran # (Auto) 0.27 H Neut # (Auto) 4.75 Lymph # (Auto) 0.50 L [place] # (Auto) 0.37 Eos # (Auto) 0.29 Baso # (Auto) 0.08 Absolute Nucleated RBC 0.43 H Nucleated RBC % (auto) 6.9 Neutrophils % (Manual) Band Neutrophils % Lymphocytes % (Manual) Prolymphocyte % Reactive Lymphs % (Man) Monocytes % (Manual) Eosinophils % (Manual) Basophils % (Manual) Metamyelocytes % (Man) Myelocytes % (Man) Promyelocytes % (Man) Blast Cells % (Manual) Plasma Cell % (Manual) Other Cells % Nucleated RBC % Neutrophils # (Manual) Band Neutrophils # Total Absolute Neuts Lymphocytes # (Manual) Prolymphocyte # Reactive Lymphs # Total Abs Lymphocytes Monocytes # (Manual) Eosinophils # (Manual) Basophils # (Manual) Metamyelocytes # (Man) Myelocytes # (Manual) Promyelocytes # (Man) Blast Cells # (Man) Plasma Cell # (Manual) Other Cells # Nucleated RBCs # (Man) Hypersegmented Neuts Hyposegmented Neuts Hypogranular Neuts Large Granular Lymphs # Lrg Granular Lymphs Hairy Cells Smudge Cells Toxic Granulation Toxic Vacuolation Dohle Bodies Redd Rods Platelet Estimate Hypogranular Platelets Clumped Platelets Giant Platelets Platelet Satelliting RBC Morphology Polychromasia Hypochromasia Poikilocytosis Basophilic Stippling Anisocytosis Microcytosis Macrocytosis Spherocytes Pappenheimer Bodies Sickle Cells Target Cells Tear Drop Cells Ovalocytes Stomatocytes [place] Bodies Echinocytes Acanthocytes (Spur) Rouleaux RBC Agglutinates Schistocytes RBC Morph Comment Sezary Cell Sodium Potassium Chloride Carbon Dioxide Anion Gap BUN Creatinine Est Cr Clr Drug Dosing Est GFR ( Amer) Est GFR (Non-Af Amer) BUN/Creatinine Ratio Glucose POC Glucose 162 H Calcium Phosphorus Magnesium Total Bilirubin AST ALT Alkaline Phosphatase Ammonia 33.0 H Total Protein Albumin Globulin Albumin/Globulin Ratio 04/01/19 04/01/19 11:16 16:06 WBC RBC Hgb Hct MCV MCH MCHC RDW Std Deviation RDW Coeff of Flori Plt Count MPV Immature Gran % (Auto) Neut % (Auto) Lymph % (Auto) [place] % (Auto) Eos % (Auto) Baso % (Auto) Immature Gran # (Auto) Neut # (Auto) Lymph # (Auto) [place] # (Auto) Eos # (Auto) Baso # (Auto) Absolute Nucleated RBC Nucleated RBC % (auto) Neutrophils % (Manual) Band Neutrophils % Lymphocytes % (Manual) Prolymphocyte % Reactive Lymphs % (Man) Monocytes % (Manual) Eosinophils % (Manual) Basophils % (Manual) Metamyelocytes % (Man) Myelocytes % (Man) Promyelocytes % (Man) Blast Cells % (Manual) Plasma Cell % (Manual) Other Cells % Nucleated RBC % Neutrophils # (Manual) Band Neutrophils # Total Absolute Neuts Lymphocytes # (Manual) Prolymphocyte # Reactive Lymphs # Total Abs Lymphocytes Monocytes # (Manual) Eosinophils # (Manual) Basophils # (Manual) Metamyelocytes # (Man) Myelocytes # (Manual) Promyelocytes # (Man) Blast Cells # (Man) Plasma Cell # (Manual) Other Cells # Nucleated RBCs # (Man) Hypersegmented Neuts Hyposegmented Neuts Hypogranular Neuts Large Granular Lymphs # Lrg Granular Lymphs Hairy Cells Smudge Cells Toxic Granulation Toxic Vacuolation Dohle Bodies Redd Rods Platelet Estimate Hypogranular Platelets Clumped Platelets Giant Platelets Platelet Satelliting RBC Morphology Polychromasia Hypochromasia Poikilocytosis Basophilic Stippling Anisocytosis Microcytosis Macrocytosis Spherocytes Pappenheimer Bodies Sickle Cells Target Cells Tear Drop Cells Ovalocytes Stomatocytes [place] Bodies Echinocytes Acanthocytes (Spur) Rouleaux RBC Agglutinates Schistocytes RBC Morph Comment Sezary Cell Sodium Potassium Chloride Carbon Dioxide Anion Gap BUN Creatinine Est Cr Clr Drug Dosing Est GFR ( Amer) Est GFR (Non-Af Amer) BUN/Creatinine Ratio Glucose POC Glucose 236 H 228 H Calcium Phosphorus Magnesium Total Bilirubin AST ALT Alkaline Phosphatase Ammonia Total Protein Albumin Globulin Albumin/Globulin Ratio
[2019-04-01] MEDS ORDERED: MICONAZOLE NITRATE POWDER 43 GM EXT PRN (13:08)
--- NOTE | 2019-04-01 13:24 | Cardiology Progress Note ---
Date of Service April 01, 2019 Assessment & Plan (1) Atrial fibrillation with rapid ventricular response: Patient spontaneously converted to sinus rhythm yesterday. Combination of diltiazem and oral metoprolol helpful in acute setting along with fluid and potassium replacement Anticoagulation remains contraindicated Plan: Discontinue IV diltiazem altogether Increased metoprolol succinate to 50 mg p.o. twice daily Continue to be active in treating obstructive sleep apnea Diuretics currently remain on hold appropriately (2) TYE treated with BiPAP: (3) Respiratory failure requiring intubation: (4) Thrombocythemia: (5) Epistaxis: (6) Right-sided heart failure: Subjective Patient seen and examined, chart, medications, telemetry reviewed. No acute cardiac complaints today spontaneously converted to sinus rhythm yesterday afternoon. Diltiazem drip being weaned Physical Exam Constitutional: + morbidly obese Eyes: PERRL, conjunctivae normal, anicteric sclerae ENMT: external ear and nose normal, oropharynx normal Neck: trachea midline, no thyromegaly Respiratory: Auscultation: + diminished lung sounds Cardiovascular: Rate/Rhythm: regular rate and regular rhythm Heart Sounds: normal S1 and normal S2; no gallop Vessels: normal carotid upstroke; no JVD Extremities: + edema (Minimal edema with chronic stasis changes) Gastrointestinal (Abdomen): Obese with large panniculus Results & Data Vital Signs (Past 12 Hours) Vital Signs Temp Pulse Pulse Resp BP Pulse Ox 04/01/19 11:21 36.5 C 72 20 156/81 H 94 04/01/19 07:10 36.5 C 74 26 H 190/73 H 99 04/01/19 04:02 36.6 C 71 21 135/81 98 04/01/19 03:40 72 19 98 Laboratory Results Laboratory Results - last 24 hr 03/31/19 03/31/19 04/01/19 16:39 20:23 05:38 WBC RBC Hgb Hct MCV MCH MCHC RDW Std Deviation RDW Coeff of Flori Plt Count MPV Immature Gran % (Auto) Neut % (Auto) Lymph % (Auto) [place] % (Auto) Eos % (Auto) Baso % (Auto) Immature Gran # (Auto) Neut # (Auto) Lymph # (Auto) [place] # (Auto) Eos # (Auto) Baso # (Auto) Absolute Nucleated RBC Nucleated RBC % (auto) Neutrophils % (Manual) Band Neutrophils % Lymphocytes % (Manual) Prolymphocyte % Reactive Lymphs % (Man) Monocytes % (Manual) Eosinophils % (Manual) Basophils % (Manual) Metamyelocytes % (Man) Myelocytes % (Man) Promyelocytes % (Man) Blast Cells % (Manual) Plasma Cell % (Manual) Other Cells % Nucleated RBC % Neutrophils # (Manual) Band Neutrophils # Total Absolute Neuts Lymphocytes # (Manual) Prolymphocyte # Reactive Lymphs # Total Abs Lymphocytes Monocytes # (Manual) Eosinophils # (Manual) Basophils # (Manual) Metamyelocytes # (Man) Myelocytes # (Manual) Promyelocytes # (Man) Blast Cells # (Man) Plasma Cell # (Manual) Other Cells # Nucleated RBCs # (Man) Hypersegmented Neuts Hyposegmented Neuts Hypogranular Neuts Large Granular Lymphs # Lrg Granular Lymphs Hairy Cells Smudge Cells Toxic Granulation Toxic Vacuolation Dohle Bodies Erdd Rods Platelet Estimate Hypogranular Platelets Clumped Platelets Giant Platelets Platelet Satelliting RBC Morphology Polychromasia Hypochromasia Poikilocytosis Basophilic Stippling Anisocytosis Microcytosis Macrocytosis Spherocytes Pappenheimer Bodies Sickle Cells Target Cells Tear Drop Cells Ovalocytes Stomatocytes Gonzalez-[place] Bodies Echinocytes Acanthocytes (Spur) Rouleaux RBC Agglutinates Schistocytes RBC Morph Comment Sezary Cell Sodium 141 Potassium 4.0 Chloride 96 L Carbon Dioxide 41 H* Anion Gap 4.0 BUN 34 H Creatinine 1.71 H Est Cr Clr Drug Dosing 41.5 Est GFR ( Amer) 36.3 Est GFR (Non-Af Amer) 31.3 BUN/Creatinine Ratio 19.9 Glucose 144 H POC Glucose 223 H 182 H Calcium 9.9 Phosphorus 3.6 Magnesium 2.0 Total Bilirubin 0.8 AST 178 H ALT 17 Alkaline Phosphatase 132 H Ammonia Total Protein 7.1 Albumin 2.5 L Globulin 4.6 H Albumin/Globulin Ratio 0.5 L 04/01/19 04/01/19 04/01/19 05:38 05:42 07:08 WBC Cancelled RBC Cancelled Hgb Cancelled Hct Cancelled MCV Cancelled MCH Cancelled MCHC Cancelled RDW Std Deviation Cancelled RDW Coeff of Flori Cancelled Plt Count Cancelled MPV Cancelled Immature Gran % (Auto) Cancelled Neut % (Auto) Cancelled Lymph % (Auto) Cancelled [place] % (Auto) Cancelled Eos % (Auto) Cancelled Baso % (Auto) Cancelled Immature Gran # (Auto) Cancelled Neut # (Auto) Cancelled Lymph # (Auto) Cancelled [place] # (Auto) Cancelled Eos # (Auto) Cancelled Baso # (Auto) Cancelled Absolute Nucleated RBC Cancelled Nucleated RBC % (auto) Cancelled Neutrophils % (Manual) Cancelled Band Neutrophils % Cancelled Lymphocytes % (Manual) Cancelled Prolymphocyte % Cancelled Reactive Lymphs % (Man) Cancelled Monocytes % (Manual) Cancelled Eosinophils % (Manual) Cancelled Basophils % (Manual) Cancelled Metamyelocytes % (Man) Cancelled Myelocytes % (Man) Cancelled Promyelocytes % (Man) Cancelled Blast Cells % (Manual) Cancelled Plasma Cell % (Manual) Cancelled Other Cells % Cancelled Nucleated RBC % Cancelled Neutrophils # (Manual) Cancelled Band Neutrophils # Cancelled Total Absolute Neuts Cancelled Lymphocytes # (Manual) Cancelled Prolymphocyte # Cancelled Reactive Lymphs # Cancelled Total Abs Lymphocytes Cancelled Monocytes # (Manual) Cancelled Eosinophils # (Manual) Cancelled Basophils # (Manual) Cancelled Metamyelocytes # (Man) Cancelled Myelocytes # (Manual) Cancelled Promyelocytes # (Man) Cancelled Blast Cells # (Man) Cancelled Plasma Cell # (Manual) Cancelled Other Cells # Cancelled Nucleated RBCs # (Man) Cancelled Hypersegmented Neuts Cancelled Hyposegmented Neuts Cancelled Hypogranular Neuts Cancelled Large Granular Lymphs Cancelled # Lrg Granular Lymphs Cancelled Hairy Cells Cancelled Smudge Cells Cancelled Toxic Granulation Cancelled Toxic Vacuolation Cancelled Dohle Bodies Cancelled Redd Rods Cancelled Platelet Estimate Cancelled Hypogranular Platelets Cancelled Clumped Platelets Cancelled Giant Platelets Cancelled Platelet Satelliting Cancelled RBC Morphology Cancelled Polychromasia Cancelled Hypochromasia Cancelled Poikilocytosis Cancelled Basophilic Stippling Cancelled Anisocytosis Cancelled Microcytosis Cancelled Macrocytosis Cancelled Spherocytes Cancelled Pappenheimer Bodies Cancelled Sickle Cells Cancelled Target Cells Cancelled Tear Drop Cells Cancelled Ovalocytes Cancelled Stomatocytes Cancelled Gonzalez-[place] Bodies Cancelled Echinocytes Cancelled Acanthocytes (Spur) Cancelled Rouleaux Cancelled RBC Agglutinates Cancelled Schistocytes Cancelled RBC Morph Comment Cancelled Sezary Cell Cancelled Sodium Potassium Chloride Carbon Dioxide Anion Gap BUN Creatinine Est Cr Clr Drug Dosing Est GFR ( Amer) Est GFR (Non-Af Amer) BUN/Creatinine Ratio Glucose POC Glucose 162 H Calcium Phosphorus Magnesium Total Bilirubin AST ALT Alkaline Phosphatase Ammonia 33.0 H Total Protein Albumin Globulin Albumin/Globulin Ratio 04/01/19 04/01/19 07:29 11:16 WBC 6.26 RBC 3.12 L Hgb 8.1 L Hct 27.5 L MCV 88.1 MCH 26.0 MCHC 29.5 L RDW Std Deviation 56.4 H RDW Coeff of Flori 18.0 H Plt Count 30 L MPV Immature Gran % (Auto) 4.3 Neut % (Auto) 75.9 Lymph % (Auto) 8.0 [place] % (Auto) 5.9 Eos % (Auto) 4.6 Baso % (Auto) 1.3 Immature Gran # (Auto) 0.27 H Neut # (Auto) 4.75 Lymph # (Auto) 0.50 L [place] # (Auto) 0.37 Eos # (Auto) 0.29 Baso # (Auto) 0.08 Absolute Nucleated RBC 0.43 H Nucleated RBC % (auto) 6.9 Neutrophils % (Manual) Band Neutrophils % Lymphocytes % (Manual) Prolymphocyte % Reactive Lymphs % (Man) Monocytes % (Manual) Eosinophils % (Manual) Basophils % (Manual) Metamyelocytes % (Man) Myelocytes % (Man) Promyelocytes % (Man) Blast Cells % (Manual) Plasma Cell % (Manual) Other Cells % Nucleated RBC % Neutrophils # (Manual) Band Neutrophils # Total Absolute Neuts Lymphocytes # (Manual) Prolymphocyte # Reactive Lymphs # Total Abs Lymphocytes Monocytes # (Manual) Eosinophils # (Manual) Basophils # (Manual) Metamyelocytes # (Man) Myelocytes # (Manual) Promyelocytes # (Man) Blast Cells # (Man) Plasma Cell # (Manual) Other Cells # Nucleated RBCs # (Man) Hypersegmented Neuts Hyposegmented Neuts Hypogranular Neuts Large Granular Lymphs # Lrg Granular Lymphs Hairy Cells Smudge Cells Toxic Granulation Toxic Vacuolation Dohle Bodies Redd Rods Platelet Estimate Hypogranular Platelets Clumped Platelets Giant Platelets Platelet Satelliting RBC Morphology Polychromasia Hypochromasia Poikilocytosis Basophilic Stippling Anisocytosis Microcytosis Macrocytosis Spherocytes Pappenheimer Bodies Sickle Cells Target Cells Tear Drop Cells Ovalocytes Stomatocytes Gonzalez-[place] Bodies Echinocytes Acanthocytes (Spur) Rouleaux RBC Agglutinates Schistocytes RBC Morph Comment Sezary Cell Sodium Potassium Chloride Carbon Dioxide Anion Gap BUN Creatinine Est Cr Clr Drug Dosing Est GFR ( Amer) Est GFR (Non-Af Amer) BUN/Creatinine Ratio Glucose POC Glucose 236 H Calcium Phosphorus Magnesium Total Bilirubin AST ALT Alkaline Phosphatase Ammonia Total Protein Albumin Globulin Albumin/Globulin Ratio
[2019-04-01] MEDS ORDERED: METOPROLOL SUCC 50MG EXT REL TAB PO SCH (17:00)
[2019-04-01 20:20] LABS: Allen Test Pos (Pos); Base Excess ABG 10.8 mEq/L (-9-1.8); HCO3 ABG 37 mmol/L (19-24); PCO2 ABG 58 mmHg (35-46); PO2 ABG 64 mm/Hg (80-95); pH ABG 7.42 (7.35-7.45)
[2019-04-01] MEDS: ENOXAPARIN INJ 40 MG/0.4 ML SYR SQ SCH (20:41)
[2019-04-02] MEDS ORDERED: NALOXONE HCL 0.4 MG/1 ML VIAL/CARP IV STA (00:32)
[2019-04-02 01:07] LABS: Base Excess ABG 5.9 mEq/L (-9-1.8); HCO3 ABG 31 mmol/L (19-24); PCO2 ABG 46 mmHg (35-46); PO2 ABG 82 mm/Hg (80-95); pH ABG 7.44 (7.35-7.45)
[2019-04-02 01:09] LABS: Allen Test POS (Pos)
[2019-04-02 01:25] LABS: Albumin Globulin Ratio 0.5 (0.9-2); Albumin Level 2.4 gm/dl (3.4-5.0); BUN Creatinine Ratio 20.1 (10-20); Bilirubin,Total 0.5 mg/dl (0.2-1); Calcium 9.7 mg/dl (8.5-10.1); Creatinine Clr Calc Pharmacy 41.6 ml/min; Est GFR (African American) 36.3; Est GFR (Non-African American) 31.3; Globulin 4.6 gm/dl (2.5-4.0); Magnesium 2.3 mg/dl (1.8-2.4); Phosphorus 4.1 mg/dl (2.5-4.9); Potassium 4.7 mmol/L (3.5-5.1)
[2019-04-02 01:31] LABS: Hematocrit (blood only) 27.8 % (37-47); Hemoglobin 8.2 g/dL (12.0-16.0); Mean Corpuscular Hemoglobin 26.2 pg (25-34); Mean Corpuscular Hgb Conc 29.5 g/dL (32-36); Mean Corpuscular Volume 88.8 fL (80-100); Nucleated RBC # (auto) 0.54 K/uL (0-0); Nucleated RBC % (auto) 7.1 %; Platelet Count 24 K/uL (130-400); RDW Standard Deviation 56.8 fL (36.4-46.3); Red Blood Count 3.13 M/uL (4.2-5.4); White Blood Count 7.55 K/uL (4.8-10.8)
[2019-04-02 01:33] LABS: Basophils # (auto) 0.06 K/uL (0-0.2); Basophils % (auto) 0.8 %; Eosinophils # (auto) 0.33 K/uL (0-0.5); Eosinophils % (auto) 4.4 %; Lymphocytes # (auto) 0.77 K/uL (1.2-3.4); Lymphocytes % (auto) 10.2 %; Monocytes # (auto) 0.57 K/uL (0.11-0.59); Monocytes % (auto) 7.5 %; Neutrophils # (auto) 5.52 K/uL (1.4-6.5); Neutrophils % (auto) 73.1 %; Platelet Estimate SIGNIFIC DECREASED (Normal); Polychromasia 1+; Spherocytes 1+; Tear Drop Cells Occasional
[2019-04-02 02:18] LABS: Appearance Urine Clear (Clear); Bilirubin Urine Negative (Negative); Blood Urine Negative (Negative); Glucose Urine UA Negative (Negative); Ketones Urine Negative (Negative); Leukocyte Esterase Urine Negative (Negative); Nitrite Urine Negative (Negative); Urobilinogen Urine Negative (Negative); pH Urine >= 9.0 (4.5-7.5)
[2019-04-02 02:19] LABS: Color Urine Yellow
[2019-04-02 02:20] LABS: Protein Urine Negative (Negative); Sulfosalicylic Acid Urine Negative (Negative)
[2019-04-02 02:22] LABS: Bacteria Urine Negative (Negative); Epithelial Cell Urine 0-5 /lpf (0-5); Hyaline Casts Urine 0-5 /lpf (0-5); RBC Urine 0-4 /hpf (0-4); WBC Urine 0-5 /hpf (0-5)
[2019-04-02] MEDS ORDERED: METOPROLOL SUCC 50MG EXT REL TAB PO SCH (03:00)
[2019-04-02] MEDS ORDERED: ALBUMIN 25% 50 ML IV ONE ×2 (03:18→04:48)
[2019-04-02] MEDS ORDERED: METOPROLOL TARTRATE 1 MG/ML VIAL IV STA (03:58)
[2019-04-02] MEDS: OLANZapine 10 MG/2.1 ML SDV IM PRN (04:02)
[2019-04-02] MEDS ORDERED: DIGOXIN 250 MCG in SYRINGE 9 ML IV ONE (05:00)
[2019-04-02] MEDS: LACTULOSE SYRUP 10 GM/15 ML BTL 473 ML PO SCH ×3 (08:17→20:24)
[2019-04-02] MEDS: POTASSIUM CHLORIDE 20 MEQ/15 ML UDC PO SCH ×2 (08:17→20:42)
[2019-04-02] MEDS: AMLODIPINE BESYLATE 5 MG TAB PO SCH (08:17)
[2019-04-02] MEDS: acetaZOLAMIDE 250 MG TAB PO SCH ×3 (08:17→20:35)
[2019-04-02] MEDS: MAGNESIUM OXIDE 400 MG TAB PO SCH ×3 (08:17→20:38)
[2019-04-02] MEDS: METOPROLOL SUCC 50MG EXT REL TAB PO SCH ×3 (08:18→16:32)
[2019-04-02] MEDS: LANSOPRAZOLE 30 MG SOLTAB NG SCH ×2 (08:18→20:38)
[2019-04-02] MEDS: INSULIN ASPART 100 UNITS/ML 3 ML PEN SC SCH ×4 (08:19→20:37)
[2019-04-02] MEDS: INSULIN GLARGINE SOLOSTAR 100 UNITS/ML 3 ML PEN SC SCH ×2 (08:20→20:35)
[2019-04-02] MEDS: FAMOTIDINE 20 MG in SYRINGE 3 ML IV SCH ×2 (08:29→20:41)
[2019-04-02] MEDS ORDERED: OXYCODONE HCL SOLN 5 MG/5 ML UDC NG PRN (11:35)
--- NOTE | 2019-04-02 11:54 | Hospitalist Progress Note ---
Date of Service April 02, 2019 Assessment & Plan (1) Epistaxis: (1) Respiratory failure requiring intubation: (2) Acute on chronic respiratory failure with hypoxia and hypercapnia: (3) Epistaxis: (4) Severe anemia: (5) Thrombocythemia: per Dr. Sena's notes: This is a 63-year-old female who has significant past medical history of metastatic breast cancer to bone, T2 DM, HLD, obesity hypoventilation syndrome, right heart failure, chronic ITP, history of DVT anticoagulated on Eliquis, rheumatoid arthritis, depression who presents to ED at the recommendation of Dr. Light hematology oncology secondary to abnormal labs and epistaxis. In ED a nasal packing was placed trans-examic acid and bleeding has ceased. She did have a posterior pharynx blood clot that was removed by ENT. RN reported another clot today-Rec notifying ENT In ED patient remained hemodynamically stable. Her H&H was 5.6 and 18.7 with platelet count of 15 BUN/creatinine 41 and 1.15, glucose 184, alk phos 121, albumin 2.4, corrected calcium 11.2, mag 1.7 She was transfused 2 units PRBC. On 03/30 Fr Viv-ENT removed the packing, Fibrillar was placed into the right nasal cavity along the septum. This material is absorbable and will come out on its own or be absorbed over time. Ff up approximately 2 weeks after discharge. Held Eliquis, Needed 2 units of Platelets 03/29, IV Unasyn stopped on 03/31 -- discussed with Education Diagnostician/Oncologist Dr. Light- recommend to resume anticoagulation given history of BL DVT last year and cancer discussed with ENT Dr. Coles- ok to start Lovenox 40mg SC -- no recurrence of epistaxis since starting Lovenox 04/01/19 Plt 24k -- continue to monitor New-onset atrial fibrillation --recurred overnight Back to sinus rhythm Diltiazem drip discontinued, continue metoprolol succinate 50 mg p.o. twice a day full anticoagulation contraindicated Cardiology consult appreciated Encephalopathy, secondary to Elevated Ammonia, likely from Liver Mets -- NH4 increased patient agreed to take Lactulose overnight (+) BMs ammonia improved to 44, will repeat this afternoon -- ABG: no respiratory acidosis, on Bipap -- also received Zyprexa early AM -- will continue to monitor (6) CKD (chronic kidney disease), stage III: Stable (7) Metastatic breast cancer: As per Dr. Sena's notes: Metastatic breast cancer to bone, lung Follows Dr. Light Receiving Xgeva and Faslodex -treatments held given thrombocytopenia oxycodone for metastatic pain - verified in pdmp (8) Right-sided heart failure: Chronic right sided heart failure Echo 09/04/2018 revealed normal LVEF, grade 1 diastolic dysfunction, right ventricular cavity dilated with diffuse right ventricular hypokinesis Monitor volume status closely given transfusion Patient prescribed O2 2 L at home --Lasix held secondary to alkalosis Acetazolamide twice a day to be given times x 6 days, then resume Lasix appears to be euvolemic today (9) Hyperammonemia: Lactulose management noted above (10) TYE (obstructive sleep apnea): per Pulmonary SVC: Patient will need a backup rate for her CPAP/BiPAP at home given that she takes opioids for her pain. Patient has nasal pillow CPAP at home. For the time being recommend full-face CPAP given that the patient had epistaxis. Use humidified oxygen. (11) DM type 2 (diabetes mellitus, type 2): 01/07/19 A1c 9.2 Lantus/NovoLog per protocol Repeat A1c 5.8 (12) History of DVT (deep vein thrombosis): History of DVT and also with hypercoagulable state given metastatic carcinoma Hold Eliquis in setting of severe anemia and thrombocytopenia -- discussed with Oncologist and ENT- recommend Lovenox 40mg SC daily (13) Rheumatoid arthritis: Patient takes oxycodone 5 mg every 4 hours Verified with PDMP -- decreasedto q8h for now (14) DVT prophylaxis: SCD/TEDS Contraindicated in setting of severe anemia, thrombocytopenia Hold Eliquis -- Lovenox started Disposition: pending evaluation and management of altered mental status, elevated ammonia, A fib, monitoring of epistaxis and thrombocytopenia while on lovenox: in progress will need portable home on O2, ENT in office after 2 weeks after DC with Dr Nam Subjective ff up for epistaxis, etc. events overnight noted apparently, patient was found to be lethargic, received Narcan, became restless, noted to be tachycardic, in early AM was in A fib RVR, received Metoprolol and Digoxin, also given Zyprexa patient has been on Bipap since this AM, mostly sleeping, opens eye to verbal stimuli, (+) BMs back to SR no other signs/symptoms noted Review of Systems Review of Systems: All systems reviewed & are unremarkable except as noted in HPI & below Physical Exam Physical Exam: General- drowsy, not in distress, on Bipap, no accessory muscle use Eyes- anicteric Neck- no JVD Lungs- clear breath sounds bilaterally, no rales/wheezes Heart- normal rate, regular rhythm; no murmurs Abdomen- normal bowel sounds, nondistended, soft, nontender Extremities- no pretibial edema, no calf tenderness Neuro- drowsy Skin- warm & dry Results & Data Vital Signs (Past 12 Hours) Vital Signs Temp Pulse Pulse Resp BP BP BP 04/02/19 10:51 36.8 C 62 24 134/69 04/02/19 08:24 79 24 04/02/19 07:05 36.6 C 75 20 145/80 H 04/02/19 05:57 122 H 04/02/19 04:29 123 H 105/69 04/02/19 04:10 139 H 103/66 04/02/19 04:09 139 H 103/66 04/02/19 04:04 70 26 H 04/02/19 03:53 37.2 C 04/02/19 03:46 149 H 122/85 04/02/19 03:10 120 H 98/64 L 04/02/19 00:45 36.9 C 91 H 18 129/74 Pulse Ox 04/02/19 10:51 100 04/02/19 08:24 99 04/02/19 07:05 100 04/02/19 05:57 04/02/19 04:29 04/02/19 04:10 04/02/19 04:09 04/02/19 04:04 96 04/02/19 03:53 99 04/02/19 03:46 04/02/19 03:10 04/02/19 00:45 96 Laboratory Results Laboratory Results - last 24 hr 04/01/19 04/01/19 04/01/19 11:16 16:06 18:09 WBC RBC Hgb Hct MCV MCH MCHC RDW Std Deviation RDW Coeff of Flori Plt Count Immature Gran % (Auto) Neut % (Auto) Lymph % (Auto) [place] % (Auto) Eos % (Auto) Baso % (Auto) Immature Gran # (Auto) Neut # (Auto) Lymph # (Auto) [place] # (Auto) Eos # (Auto) Baso # (Auto) Absolute Nucleated RBC Nucleated RBC % (auto) Platelet Estimate Polychromasia Spherocytes Tear Drop Cells ABG pH ABG pCO2 ABG pO2 ABG HCO3 ABG O2 Saturation ABG Base Excess Robert Test Barometric Pressure Oxygen Given Sodium Potassium Chloride Carbon Dioxide Anion Gap BUN Creatinine Est Cr Clr Drug Dosing Est GFR ( Amer) Est GFR (Non-Af Amer) BUN/Creatinine Ratio Glucose POC Glucose 236 H 228 H 205 H Calcium Phosphorus Magnesium Total Bilirubin AST ALT Alkaline Phosphatase Ammonia Total Protein Albumin Globulin Albumin/Globulin Ratio Urine Color Urine Appearance Urine pH Ur Specific [place] Urine Protein Urine Glucose (UA) Urine Ketones Urine Blood Urine Nitrite Urine Bilirubin Urine Urobilinogen Ur Leukocyte Esterase Urine RBC Urine WBC Ur Epithelial Cells Urine Bacteria Hyaline Casts 04/01/19 04/01/19 04/01/19 19:34 19:34 19:56 WBC RBC Hgb Hct MCV MCH MCHC RDW Std Deviation RDW Coeff of Flori Plt Count Immature Gran % (Auto) Neut % (Auto) Lymph % (Auto) [place] % (Auto) Eos % (Auto) Baso % (Auto) Immature Gran # (Auto) Neut # (Auto) Lymph # (Auto) [place] # (Auto) Eos # (Auto) Baso # (Auto) Absolute Nucleated RBC Nucleated RBC % (auto) Platelet Estimate Polychromasia Spherocytes Tear Drop Cells ABG pH Cancelled ABG pCO2 Cancelled ABG pO2 Cancelled ABG HCO3 Cancelled ABG O2 Saturation Cancelled ABG Base Excess Cancelled Robert Test Cancelled Barometric Pressure Cancelled Oxygen Given Cancelled Sodium Potassium Chloride Carbon Dioxide Anion Gap BUN Creatinine Est Cr Clr Drug Dosing Est GFR ( Amer) Est GFR (Non-Af Amer) BUN/Creatinine Ratio Glucose POC Glucose 231 H Calcium Phosphorus Magnesium Total Bilirubin AST ALT Alkaline Phosphatase Ammonia 55.0 H Total Protein Albumin Globulin Albumin/Globulin Ratio Urine Color Urine Appearance Urine pH Ur Specific [place] Urine Protein Urine Glucose (UA) Urine Ketones Urine Blood Urine Nitrite Urine Bilirubin Urine Urobilinogen Ur Leukocyte Esterase Urine RBC Urine WBC Ur Epithelial Cells Urine Bacteria Hyaline Casts 04/01/19 04/02/19 04/02/19 20:10 00:39 00:54 WBC 7.55 RBC 3.13 L Hgb 8.2 L Hct 27.8 L MCV 88.8 MCH 26.2 MCHC 29.5 L RDW Std Deviation 56.8 H RDW Coeff of Flori 18.0 H Plt Count 24 L* Immature Gran % (Auto) 4.0 Neut % (Auto) 73.1 Lymph % (Auto) 10.2 [place] % (Auto) 7.5 Eos % (Auto) 4.4 Baso % (Auto) 0.8 Immature Gran # (Auto) 0.30 H Neut # (Auto) 5.52 Lymph # (Auto) 0.77 L [place] # (Auto) 0.57 Eos # (Auto) 0.33 Baso # (Auto) 0.06 Absolute Nucleated RBC 0.54 H Nucleated RBC % (auto) 7.1 Platelet Estimate SIGNIFIC DECREASED Polychromasia 1+ Spherocytes 1+ Tear Drop Cells Occasional ABG pH 7.42 ABG pCO2 58 H ABG pO2 64 L ABG HCO3 37 H ABG O2 Saturation 90.0 ABG Base Excess 10.8 H Robert Test Pos Barometric Pressure 735.0 Oxygen Given 2 Sodium Potassium Chloride Carbon Dioxide Anion Gap BUN Creatinine Est Cr Clr Drug Dosing Est GFR ( Amer) Est GFR (Non-Af Amer) BUN/Creatinine Ratio Glucose POC Glucose 288 H Calcium Phosphorus Magnesium Total Bilirubin AST ALT Alkaline Phosphatase Ammonia Total Protein Albumin Globulin Albumin/Globulin Ratio Urine Color Urine Appearance Urine pH Ur Specific [place] Urine Protein Urine Glucose (UA) Urine Ketones Urine Blood Urine Nitrite Urine Bilirubin Urine Urobilinogen Ur Leukocyte Esterase Urine RBC Urine WBC Ur Epithelial Cells Urine Bacteria Hyaline Casts 04/02/19 04/02/19 04/02/19 00:54 00:54 00:54 WBC RBC Hgb Hct MCV MCH MCHC RDW Std Deviation RDW Coeff of Flori Plt Count Immature Gran % (Auto) Neut % (Auto) Lymph % (Auto) [place] % (Auto) Eos % (Auto) Baso % (Auto) Immature Gran # (Auto) Neut # (Auto) Lymph # (Auto) [place] # (Auto) Eos # (Auto) Baso # (Auto) Absolute Nucleated RBC Nucleated RBC % (auto) Platelet Estimate Polychromasia Spherocytes Tear Drop Cells ABG pH 7.44 ABG pCO2 46 ABG pO2 82 ABG HCO3 31 H ABG O2 Saturation 94.0 ABG Base Excess 5.9 H Robert Test POS Barometric Pressure 736.5 Oxygen Given 4L Sodium 139 Potassium 4.7 D Chloride 103 Carbon Dioxide 34 H Anion Gap 2.0 L BUN 34 H Creatinine 1.71 H Est Cr Clr Drug Dosing 41.6 Est GFR ( Amer) 36.3 Est GFR (Non-Af Amer) 31.3 BUN/Creatinine Ratio 20.1 H Glucose 262 H POC Glucose Calcium 9.7 Phosphorus 4.1 Magnesium 2.3 Total Bilirubin 0.5 AST 127 H ALT 15 Alkaline Phosphatase 143 H Ammonia 44.0 H Total Protein 7.0 Albumin 2.4 L Globulin 4.6 H Albumin/Globulin Ratio 0.5 L Urine Color Urine Appearance Urine pH Ur Specific [place] Urine Protein Urine Glucose (UA) Urine Ketones Urine Blood Urine Nitrite Urine Bilirubin Urine Urobilinogen Ur Leukocyte Esterase Urine RBC Urine WBC Ur Epithelial Cells Urine Bacteria Hyaline Casts 04/02/19 04/02/19 04/02/19 01:40 07:13 10:54 WBC RBC Hgb Hct MCV MCH MCHC RDW Std Deviation RDW Coeff of Flori Plt Count Immature Gran % (Auto) Neut % (Auto) Lymph % (Auto) [place] % (Auto) Eos % (Auto) Baso % (Auto) Immature Gran # (Auto) Neut # (Auto) Lymph # (Auto) [place] # (Auto) Eos # (Auto) Baso # (Auto) Absolute Nucleated RBC Nucleated RBC % (auto) Platelet Estimate Polychromasia Spherocytes Tear Drop Cells ABG pH ABG pCO2 ABG pO2 ABG HCO3 ABG O2 Saturation ABG Base Excess Robert Test Barometric Pressure Oxygen Given Sodium Potassium Chloride Carbon Dioxide Anion Gap BUN Creatinine Est Cr Clr Drug Dosing Est GFR ( Amer) Est GFR (Non-Af Amer) BUN/Creatinine Ratio Glucose POC Glucose 220 H 191 H Calcium Phosphorus Magnesium Total Bilirubin AST ALT Alkaline Phosphatase Ammonia Total Protein Albumin Globulin Albumin/Globulin Ratio Urine Color Yellow Urine Appearance Clear Urine pH >= 9.0 H Ur Specific [place] 1.010 Urine Protein Negative Urine Glucose (UA) Negative Urine Ketones Negative Urine Blood Negative Urine Nitrite Negative Urine Bilirubin Negative Urine Urobilinogen Negative Ur Leukocyte Esterase Negative Urine RBC 0-4 Urine WBC 0-5 Ur Epithelial Cells 0-5 Urine Bacteria Negative Hyaline Casts 0-5
--- NOTE | 2019-04-02 13:07 | Cardiology Progress Note ---
Date of Service April 02, 2019 Assessment & Plan (1) Atrial fibrillation with rapid ventricular response: Patient spontaneously converted to sinus rhythm yesterday. Combination of diltiazem and oral metoprolol helpful in acute setting along with fluid and potassium replacement Anticoagulation remains contraindicated Patient last evening had transient atrial fibrillation in the setting of multiple interventions as noted Remains in sinus rhythm this morning Would recommend continuing Toprol 50 mg twice per day Treat underlying medical issue (2) TYE treated with BiPAP: (3) Respiratory failure requiring intubation: (4) Thrombocythemia: (5) Epistaxis: (6) Right-sided heart failure: Subjective Patient seen and examined, chart, medications, telemetry reviewed. Events of prior evening noted. Patient last evening more somnolent and received Narcan. Shortly after arrival developed tachycardia and transient atrial fibrillation which spontaneously converted to sinus rhythm. This morning patient will arouse but very drowsy remains on BiPAP Was able to take morning medication Physical Exam Constitutional: + ill appearing and + morbidly obese BiPAP in place Eyes: PERRL, conjunctivae normal, anicteric sclerae ENMT: external ear and nose normal, oropharynx normal Neck: trachea midline, no thyromegaly + thick neck Respiratory: Auscultation: + diminished lung sounds Cardiovascular: Rate/Rhythm: regular rate and regular rhythm Heart Sounds: normal S1 and normal S2; no gallop Vessels: normal carotid upstroke; no JVD Extremities: + edema (Minimal edema with chronic stasis changes) Gastrointestinal (Abdomen): normal bowel sounds, soft, nontender, no hepatosplenomegaly Skin: no rashes, warm and dry Psychiatric: A+Ox3, euthymic affect Results & Data Vital Signs (Past 12 Hours) Vital Signs Temp Pulse Pulse Resp BP BP BP 04/02/19 11:59 71 27 H 04/02/19 10:51 36.8 C 62 24 134/69 04/02/19 08:24 79 24 04/02/19 07:05 36.6 C 75 20 145/80 H 04/02/19 05:57 122 H 04/02/19 04:29 123 H 105/69 04/02/19 04:10 139 H 103/66 04/02/19 04:09 139 H 103/66 04/02/19 04:04 70 26 H 04/02/19 03:53 37.2 C 04/02/19 03:46 149 H 122/85 04/02/19 03:10 120 H 98/64 L Pulse Ox 04/02/19 11:59 99 04/02/19 10:51 100 04/02/19 08:24 99 04/02/19 07:05 100 04/02/19 05:57 04/02/19 04:29 04/02/19 04:10 04/02/19 04:09 04/02/19 04:04 96 04/02/19 03:53 99 04/02/19 03:46 04/02/19 03:10
--- NOTE | 2019-04-02 14:49 | CT Scan Report ---
HEAD CT NONCONTRAST CT DOSE: 841.54 mGy.cm HISTORY: altered mental status, r/o bleed TECHNIQUE: Multiaxial CT images of the head were performed without the use of intravenous contrast. A utomated exposure control was utilized for this study. A dose lowering technique was utilized adheri ng to the principles of ALARA. Comparison: Head CT 03/26/2019. Findings: Mild mucosal thickening within the right maxillary sinus. The mastoid air cells are clear. Mild motion artifact. Small focus of encephalomalacia within the left occipital lobe, unchanged. This is consistent with an old infarct. The calvarium and skull base are intact. The ventricles and sulci are within normal limits. There is no mass, hematoma, midline shift, or acute infarct. Impression: Motion artifact. No definite acute intracranial abnormality. ACT 112: Negative or not required by law. Electronically signed by: Marlon Lopez M.D. 04/02/2019 2:48 PM
[2019-04-02] MEDS: OXYCODONE HCL SOLN 5 MG/5 ML UDC NG PRN (20:31)
[2019-04-02] MEDS: RIFAXIMIN 550 MG TABLET PO SCH (20:34)
[2019-04-02] MEDS: ENOXAPARIN INJ 40 MG/0.4 ML SYR SQ SCH (20:50)
[2019-04-03] MEDS: OXYCODONE HCL SOLN 5 MG/5 ML UDC NG PRN (03:17)
[2019-04-03] MEDS: LANSOPRAZOLE 30 MG SOLTAB NG SCH ×2 (08:04→22:12)
[2019-04-03] MEDS: RIFAXIMIN 550 MG TABLET PO SCH ×2 (08:04→22:11)
[2019-04-03] MEDS: acetaZOLAMIDE 250 MG TAB PO SCH (08:04)
[2019-04-03] MEDS: AMLODIPINE BESYLATE 5 MG TAB PO SCH (08:04)
[2019-04-03] MEDS: MAGNESIUM OXIDE 400 MG TAB PO SCH ×2 (08:04→12:10)
[2019-04-03] MEDS: METOPROLOL SUCC 50MG EXT REL TAB PO SCH ×2 (08:05→17:07)
[2019-04-03] MEDS: INSULIN GLARGINE SOLOSTAR 100 UNITS/ML 3 ML PEN SC SCH ×2 (08:05→22:58)
[2019-04-03] MEDS: POTASSIUM CHLORIDE 20 MEQ/15 ML UDC PO SCH (08:06)
[2019-04-03] MEDS: INSULIN ASPART 100 UNITS/ML 3 ML PEN SC SCH ×4 (08:07→22:04)
[2019-04-03] MEDS: LACTULOSE SYRUP 10 GM/15 ML BTL 473 ML PO SCH ×3 (08:08→22:01)
[2019-04-03] MEDS: FAMOTIDINE 20 MG in SYRINGE 3 ML IV SCH (08:11)
[2019-04-03 08:24] LABS: BUN Creatinine Ratio 22.6 (10-20); Calcium 10.7 mg/dl (8.5-10.1); Creatinine Clr Calc Pharmacy 40.4 ml/min; Est GFR (African American) 35.1; Est GFR (Non-African American) 30.2; Potassium 4.5 mmol/L (3.5-5.1)
[2019-04-03 09:23] LABS: Basophils # (auto) 0.04 K/uL (0-0.2); Basophils % (auto) 0.6 %; Eosinophils # (auto) 0.15 K/uL (0-0.5); Eosinophils % (auto) 2.1 %; Hematocrit (blood only) 28.2 % (37-47); Hemoglobin 8.2 g/dL (12.0-16.0); Hypochromasia Present; Immature Granulocytes # (auto) 0.15 K/uL (0.00-0.02); Immature Granulocytes % (auto) 2.1 %; Lymphocytes # (auto) 0.78 K/uL (1.2-3.4); Lymphocytes % (auto) 11.1 %; Mean Corpuscular Hemoglobin 25.5 pg (25-34); Mean Corpuscular Hgb Conc 29.1 g/dL (32-36); Mean Corpuscular Volume 87.9 fL (80-100); Monocytes # (auto) 0.54 K/uL (0.11-0.59); Monocytes % (auto) 7.7 %; Neutrophils # (auto) 5.35 K/uL (1.4-6.5); Neutrophils % (auto) 76.4 %; Nucleated RBC % (auto) 5.7 %; Platelet Count 21 K/uL (130-400); RDW Standard Deviation 56.8 fL (36.4-46.3); Red Blood Count 3.21 M/uL (4.2-5.4); White Blood Count 7.01 K/uL (4.8-10.8)
--- NOTE | 2019-04-03 09:47 | Hospitalist Progress Note ---
Date of Service April 03, 2019 Assessment & Plan (1) Epistaxis: (1) Respiratory failure requiring intubation: (2) Acute on chronic respiratory failure with hypoxia and hypercapnia: (3) Epistaxis: (4) Severe anemia: (5) Thrombocythemia: per Dr. Sena's notes: This is a 63-year-old female who has significant past medical history of metastatic breast cancer to bone, T2 DM, HLD, obesity hypoventilation syndrome, right heart failure, chronic ITP, history of DVT anticoagulated on Eliquis, rheumatoid arthritis, depression who presents to ED at the recommendation of Dr. Light hematology oncology secondary to abnormal labs and epistaxis. In ED a nasal packing was placed trans-examic acid and bleeding has ceased. She did have a posterior pharynx blood clot that was removed by ENT. RN reported another clot today-Rec notifying ENT In ED patient remained hemodynamically stable. Her H&H was 5.6 and 18.7 with platelet count of 15 BUN/creatinine 41 and 1.15, glucose 184, alk phos 121, albumin 2.4, corrected calcium 11.2, mag 1.7 She was transfused 2 units PRBC. On 03/30 Fr Viv-ENT removed the packing, Fibrillar was placed into the right nasal cavity along the septum. This material is absorbable and will come out on its own or be absorbed over time. Ff up approximately 2 weeks after discharge. Held Eliquis, Needed 2 units of Platelets 03/29, IV Unasyn stopped on 03/31 -- discussed with Basting Cleaner/Oncologist Dr. Light- recommend to resume anticoagulation given history of BL DVT last year and cancer discussed with ENT Dr. Coles- ok to start Lovenox 40mg SC -- no recurrence of epistaxis since starting Lovenox 04/01/19 Plt 21k- will continue to monitor -- continue to monitor New-onset atrial fibrillation --at around 430pm, back to a fib in RVR 120s Diltiazem IV push ordered, continue metoprolol succinate 50 mg p.o. twice a day -- K 4.5 -- continue to monitor full anticoagulation contraindicated Cardiology consult appreciated Encephalopathy, secondary to Elevated Ammonia, likely from Liver Mets -- NH4 increased Rifaximin added to Lactulose -- Nh4 improved to 30 -- ABG: no respiratory acidosis, on Bipap -- improving GI consulted (6) CKD (chronic kidney disease), stage III: Stable (7) Metastatic breast cancer: As per Dr. Sena's notes: Metastatic breast cancer to bone, lung Follows Dr. Light Receiving Xgeva and Faslodex -treatments held given thrombocytopenia oxycodone for metastatic pain - verified in pdmp (8) Right-sided heart failure: Chronic right sided heart failure Echo 09/04/2018 revealed normal LVEF, grade 1 diastolic dysfunction, right ventricular cavity dilated with diffuse right ventricular hypokinesis Monitor volume status closely given transfusion Patient prescribed O2 2 L at home --Lasix held secondary to alkalosis transitioned to Acetazolamide twice a day , received x 3 days, now discontinu ed as patient appears euvolemic continue to monitor (9) Hyperammonemia: Lactulose management noted above (10) TYE (obstructive sleep apnea): per Pulmonary SVC: Patient will need a backup rate for her CPAP/BiPAP at home given that she takes opioids for her pain. Patient has nasal pillow CPAP at home. For the time being recommend full-face CPAP given that the patient had epistaxis. Use humidified oxygen. (11) DM type 2 (diabetes mellitus, type 2): 01/07/19 A1c 9.2 Lantus/NovoLog per protocol Repeat A1c 5.8 -- Pharmacy consulted (12) History of DVT (deep vein thrombosis): History of DVT and also with hypercoagulable state given metastatic carcinoma Hold Eliquis in setting of severe anemia and thrombocytopenia -- discussed with Oncologist and ENT- recommend Lovenox 40mg SC daily (13) Rheumatoid arthritis: Patient takes oxycodone 5 mg every 4 hours Verified with PDMP -- decreased to q8h for now (14) DVT prophylaxis: SCD/TEDS Contraindicated in setting of severe anemia, thrombocytopenia Hold Eliquis -- Lovenox 40mg SC daily Disposition: pending evaluation and management of altered mental status, elevated ammonia, A fib, monitoring of epistaxis and thrombocytopenia while on lovenox: in progress will need portable home on O2, ENT in office after 2 weeks after DC with Dr Nam Subjective ff up for epistaxis, a fib seen resting in bed, comfortable alert, oriented x 2, answers most questions appropriately states she feels ok overall denies shortness of breath, palpitations, chest pain, dizziness no other symptoms Review of Systems Review of Systems: All systems reviewed & are unremarkable except as noted in HPI & below Physical Exam Physical Exam: General- oriented x 2, not in distress, speaks in sentences with no effort or accessory muscle use Eyes- anicteric Neck- no JVD Lungs- clear breath sounds bilaterally, no rales Heart- normal rate, regular rhythm; no murmurs Abdomen- normal bowel sounds, nondistended, soft, nontender Extremities- no pretibial edema, no calf tenderness Neuro- alert, oriented x 3; no gross focal neurologic deficits Skin- warm & dry Results & Data Vital Signs (Past 12 Hours) Vital Signs Temp Pulse Pulse Pulse Resp BP Pulse Ox 04/03/19 07:18 36.8 C 78 20 121/70 97 04/03/19 05:36 89 22 99 04/03/19 04:08 77 04/03/19 03:28 91 H 26 H 98 04/03/19 03:08 36.4 C L 83 24 125/72 04/03/19 00:09 81 04/02/19 23:25 37 C 83 20 123/76 95 04/02/19 23:16 88 31 H 88 L 04/02/19 23:03 89 04/02/19 22:20 87 Laboratory Results Laboratory Results - last 24 hr 04/02/19 04/03/19 04/03/19 20:25 07:22 07:45 WBC 7.01 RBC 3.21 L Hgb 8.2 L Hct 28.2 L MCV 87.9 MCH 25.5 MCHC 29.1 L RDW Std Deviation 56.8 H RDW Coeff of Flori 18.0 H Plt Count 21 L* Immature Gran % (Auto) 2.1 Neut % (Auto) 76.4 Lymph % (Auto) 11.1 [place] % (Auto) 7.7 Eos % (Auto) 2.1 Baso % (Auto) 0.6 Immature Gran # (Auto) 0.15 H Neut # (Auto) 5.35 Lymph # (Auto) 0.78 L [place] # (Auto) 0.54 Eos # (Auto) 0.15 Baso # (Auto) 0.04 Absolute Nucleated RBC 0.40 H Nucleated RBC % (auto) 5.7 Hypochromasia Present Sodium Potassium Chloride Carbon Dioxide Anion Gap BUN Creatinine Est Cr Clr Drug Dosing Est GFR ( Amer) Est GFR (Non-Af Amer) BUN/Creatinine Ratio Glucose POC Glucose 243 H 159 H Calcium Ammonia 04/03/19 04/03/19 04/03/19 07:45 07:49 11:18 WBC RBC Hgb Hct MCV MCH MCHC RDW Std Deviation RDW Coeff of Flori Plt Count Immature Gran % (Auto) Neut % (Auto) Lymph % (Auto) [place] % (Auto) Eos % (Auto) Baso % (Auto) Immature Gran # (Auto) Neut # (Auto) Lymph # (Auto) [place] # (Auto) Eos # (Auto) Baso # (Auto) Absolute Nucleated RBC Nucleated RBC % (auto) Hypochromasia Sodium 139 Potassium 4.5 Chloride 104 Carbon Dioxide 32 Anion Gap 3.0 BUN 40 H Creatinine 1.76 H Est Cr Clr Drug Dosing 40.4 Est GFR ( Amer) 35.1 Est GFR (Non-Af Amer) 30.2 BUN/Creatinine Ratio 22.6 H Glucose 141 H POC Glucose 185 H Calcium 10.7 H Ammonia 30.5 04/03/19 16:18 WBC RBC Hgb Hct MCV MCH MCHC RDW Std Deviation RDW Coeff of Flori Plt Count Immature Gran % (Auto) Neut % (Auto) Lymph % (Auto) [place] % (Auto) Eos % (Auto) Baso % (Auto) Immature Gran # (Auto) Neut # (Auto) Lymph # (Auto) [place] # (Auto) Eos # (Auto) Baso # (Auto) Absolute Nucleated RBC Nucleated RBC % (auto) Hypochromasia Sodium Potassium Chloride Carbon Dioxide Anion Gap BUN Creatinine Est Cr Clr Drug Dosing Est GFR ( Amer) Est GFR (Non-Af Amer) BUN/Creatinine Ratio Glucose POC Glucose 241 H Calcium Ammonia
--- NOTE | 2019-04-03 10:04 | Gastrointestinal Consultation ---
Date of Consultation April 03, 2019 Assessment & Plan (1) Hyperammonemia: 63 year old female w/ history of metastatic breast CA admitted w/ nose bleed to the ICU, intubated secondary to acute on chronic respiratory failure, ongoing cardiac concerns w/ transient atrial fibrillation noted to be disoriented, confused w/ elevated ammonia level. Appears she has received appropriate therapy w/ lactulose, ammonia levels downtrended and pt is awake, alert and oriented answering questions appropriately this AM. Previous CT showed nodularity of liver, LFTs and INR unremarkable, thrombocytopenia w/ known ITP. DDX discussed: elevated ammonia related to cirrhosis vs renal insufficiency vs med induced (was previously on Topamax unclear if still using). Discussed at length w her about possible workup including obtaining serologies, further imaging studies to r/o cirrhosis; and additional maintenance for liver disease care. She is however not interested in pursuing any further workup for possible liver disease and wants to focus on her breast ca treatment at this time which I find reasonable. No plan for EGD for variceal screening Can obtain MELD labs every 6 months HCC screen w/ AFP and ABD US every 6 months Low NA diet, less than 2 grams Less than 2 grams of tylenol containing products No ETOH Lactulose titrated to 2-4 BMs daily Will sign off. Please call with any acute changes, questions or concerns. Present on Admission?: Yes Supervising Physician Co-Signing Physician Notes I have personally seen and examined the patient with REJI Childress. Her note reflects my exam and findings. I agree with her impression and plan. Titrate lactulose to about 3-4 BMs daily even as out patient. Rashid Yeager M.D. History of Present Illness Reason for Consultation: elevated ammonia Requesting Physician: Sanjay Attending Physician: Randy Grace MD History of Present Illness 63 year old female w/ history of Pt is a R breast ca w bony & liver mets on Xgeva and Abemaciclib, recently started on Rituxam for ITP who presented through the ED w/ severe nose bleed and was admitted through the ICU, intubate secondary to acute on chronic respiratory failure with hypoxia and hypercapnia. GI asked to evaluate for elevated ammonia level. She is sitting upright in bed, just finished getting cleaned up by staff. She awake, alert and oriented to person, place. She had originally been disoriented to time but later corrected herself and was able to verify the corrent month, year and upcoming holidays. She denies any abd pain. No nausea, vomiting. Is hungry. Moving bowels - denies nay black or bloody stools. Previous CT abd/pelvis done in April that her liver appear slightly nodular. Ammonia 120 LFTs w/ normal Tbili but AST/ALKP elevation. INR 1.2 PLT 21 Allergies Allergy/AdvReac Type Severity Reaction Status Date / Time gabapentin AdvReac Hallucinati Verified 03/24/19 14:13 ng Home Medications Home Medications Medication Instructions Recorded Confirmed Type fexofenadine [Rocio Allergy] 180 mg PO QAM 03/05/18 03/24/19 History Lantus Solostar U-100 Insulin See Rx Instructions .ROUTE 05/16/18 03/24/19 Rx .COMPLEX #15 ml metoprolol succinate 25 mg PO BID #60 ea 05/16/18 03/24/19 Rx Eliquis 5 mg PO BID 01/06/19 03/24/19 History Xgeva 120 mg SUBCUT MONTHLY 01/06/19 03/24/19 History fulvestrant [Faslodex] 250 mg IM Q14D 01/06/19 03/24/19 History hydroxyzine HCl 25 mg PO BID 01/06/19 03/24/19 History omeprazole 20 mg PO BID 01/06/19 03/24/19 History torsemide 20 mg PO DAILY PRN 01/06/19 03/24/19 History insulin aspart U-100 [Novolog 0 unit SUBCUT UD 03/24/19 03/24/19 History Flexpen U-100 Insulin] oxycodone 5 mg PO Q4 03/24/19 03/24/19 History Patient History Medical History ATN (acute tubular necrosis) (Resolved) Breast cancer metastasized to bone (Inactive) Chronic kidney disease (Inactive) CKD (chronic kidney disease), stage III (Chronic) DM type 2 (diabetes mellitus, type 2) (Chronic) History of DVT (deep vein thrombosis) (Chronic) Hyperlipidemia (Chronic) Hypertension (Chronic) Irritable bowel syndrome (Chronic) Metastatic breast cancer (Chronic) Obesity hypoventilation syndrome (Chronic) TYE (obstructive sleep apnea) (Chronic) Osteoarthritis (Chronic) Rheumatoid arthritis (Inactive) Rheumatoid arthritis (Chronic) Right-sided heart failure (Chronic) Thrombocytopenia (Chronic) Surgical History History of hernia repair (Chronic) Family History Mother Stroke Diabetes Father Diabetes Social History Preferred Language: Macedonian Communication Ability: Effective Visual Impairment: No Limitations Financial Advisor Trainee Required: No Beliefs That Will Affect Care: Rastafarian Rastafarian Beliefs: Mandaeism marital status: Current Living Situation: Spouse Other Information That Helps Us Care for You: No Feels Safe at Home: Yes Safety Concerns: Feels Safe At This Time Smoking Status: Never smoker Second Hand Exposure: No ; Hx Alcohol Use: No Hx Substance Use: No Review of Systems Constitutional: + weakness; no chills and no fatigue Respiratory: no cough and no dyspnea Cardiovascular: no chest pain Gastrointestinal: no abdominal pain, no vomiting, no blood in stools and no melena Physical Exam Constitutional: + obese; no acute distress and not ill appearing Neck: trachea midline Respiratory: normal respiratory effort Cardiovascular: Rate/Rhythm: regular rate Gastrointestinal (Abdomen): Inspection/Auscultation: normal bowel sounds Percussion/Palpation: abdomen soft; abdomen nontender and no guarding Skin: no rashes, warm and dry Results & Data Vital Signs (Past 12 Hours) Vital Signs Temp Pulse Pulse Pulse Resp BP Pulse Ox 04/03/19 07:18 36.8 C 78 20 121/70 97 04/03/19 05:36 89 22 99 04/03/19 04:08 77 04/03/19 03:28 91 H 26 H 98 04/03/19 03:08 36.4 C L 83 24 125/72 04/03/19 00:09 81 04/02/19 23:25 37 C 83 20 123/76 95 04/02/19 23:16 88 31 H 88 L 04/02/19 23:03 89 04/02/19 22:20 87 Laboratory Results 04/03/19 04/03/19 04/03/19 Range/Units 07:49 07:45 07:45 WBC 7.01 (4.8-10.8) K/uL RBC 3.21 L (4.2-5.4) M/uL Hgb 8.2 L (12.0-16.0) g/dL Hct 28.2 L (37-47) % MCV 87.9 (80-100) fL MCH 25.5 (25-34) pg MCHC 29.1 L (32-36) g/dL RDW Std Deviation 56.8 H (36.4-46.3) fL RDW Coeff of Flori 18.0 H (11.5-14.5) % Plt Count 21 L* (130-400) K/uL Immature Gran % (Auto) 2.1 % Neut % (Auto) 76.4 % Lymph % (Auto) 11.1 % [place] % (Auto) 7.7 % Eos % (Auto) 2.1 % Baso % (Auto) 0.6 % Immature Gran # (Auto) 0.15 H (0.00-0.02) K/uL Neut # (Auto) 5.35 (1.4-6.5) K/uL Lymph # (Auto) 0.78 L (1.2-3.4) K/uL [place] # (Auto) 0.54 (0.11-0.59) K/uL Eos # (Auto) 0.15 (0-0.5) K/uL Baso # (Auto) 0.04 (0-0.2) K/uL Absolute Nucleated RBC 0.40 H (0-0) K/uL Nucleated RBC % (auto) 5.7 % Hypochromasia Present Sodium 139 (136-145) mmol/L Potassium 4.5 (3.5-5.1) mmol/L Chloride 104 (98-107) mmol/L Carbon Dioxide 32 (21-32) mmol/L Anion Gap 3.0 (3-11) BUN 40 H (7-18) mg/dl Creatinine 1.76 H (0.6-1.2) mg/dl Est Cr Clr Drug Dosing 40.4 ml/min Est GFR ( Amer) 35.1 Est GFR (Non-Af Amer) 30.2 BUN/Creatinine Ratio 22.6 H (10-20) Glucose 141 H (70-99) mg/dl POC Glucose (70-99) Calcium 10.7 H (8.5-10.1) mg/dl Ammonia 30.5 (11-32) umol/L 04/03/19 04/02/19 04/02/19 Range/Units 07:22 20:25 16:27 WBC (4.8-10.8) K/uL RBC (4.2-5.4) M/uL Hgb (12.0-16.0) g/dL Hct (37-47) % MCV (80-100) fL MCH (25-34) pg MCHC (32-36) g/dL RDW Std Deviation (36.4-46.3) fL RDW Coeff of [place]i (11.5-14.5) % Plt Count (130-400) K/uL Immature Gran % (Auto) % Neut % (Auto) % Lymph % (Auto) % [place] % (Auto) % Eos % (Auto) % Baso % (Auto) % Immature Gran # (Auto) (0.00-0.02) K/uL Neut # (Auto) (1.4-6.5) K/uL Lymph # (Auto) (1.2-3.4) K/uL [place] # (Auto) (0.11-0.59) K/uL Eos # (Auto) (0-0.5) K/uL Baso # (Auto) (0-0.2) K/uL Absolute Nucleated RBC (0-0) K/uL Nucleated RBC % (auto) % Hypochromasia Sodium (136-145) mmol/L Potassium (3.5-5.1) mmol/L Chloride (98-107) mmol/L Carbon Dioxide (21-32) mmol/L Anion Gap (3-11) BUN (7-18) mg/dl Creatinine (0.6-1.2) mg/dl Est Cr Clr Drug Dosing ml/min Est GFR ( Amer) Est GFR (Non-Af Amer) BUN/Creatinine Ratio (10-20) Glucose (70-99) mg/dl POC Glucose 159 H 243 H 229 H (70-99) Calcium (8.5-10.1) mg/dl Ammonia (11-32) umol/L 04/02/19 04/02/19 Range/Units 12:35 10:54 WBC (4.8-10.8) K/uL RBC (4.2-5.4) M/uL Hgb (12.0-16.0) g/dL Hct (37-47) % MCV (80-100) fL MCH (25-34) pg MCHC (32-36) g/dL RDW Std Deviation (36.4-46.3) fL RDW Coeff of [place]i (11.5-14.5) % Plt Count (130-400) K/uL Immature Gran % (Auto) % Neut % (Auto) % Lymph % (Auto) % [place] % (Auto) % Eos % (Auto) % Baso % (Auto) % Immature Gran # (Auto) (0.00-0.02) K/uL Neut # (Auto) (1.4-6.5) K/uL Lymph # (Auto) (1.2-3.4) K/uL [place] # (Auto) (0.11-0.59) K/uL Eos # (Auto) (0-0.5) K/uL Baso # (Auto) (0-0.2) K/uL Absolute Nucleated RBC (0-0) K/uL Nucleated RBC % (auto) % Hypochromasia Sodium (136-145) mmol/L Potassium (3.5-5.1) mmol/L Chloride (98-107) mmol/L Carbon Dioxide (21-32) mmol/L Anion Gap (3-11) BUN (7-18) mg/dl Creatinine (0.6-1.2) mg/dl Est Cr Clr Drug Dosing ml/min Est GFR ( Amer) Est GFR (Non-Af Amer) BUN/Creatinine Ratio (10-20) Glucose (70-99) mg/dl POC Glucose 191 H (70-99) Calcium (8.5-10.1) mg/dl Ammonia 44.0 H (11-32) umol/L
--- NOTE | 2019-04-03 12:28 | Cardiology Progress Note ---
Date of Service April 03, 2019 Assessment & Plan (1) Atrial fibrillation with rapid ventricular response: Patient now in sinus rhythm and maintaining sinus rhythm Would continue Toprol-XL 50 mg twice per day (metoprolol succinate) Anticoagulation contraindicated Patient improved with rehydration after aggressive diuresis. Would use caution with diuretics may ultimately need resumption of far future. Renal function is improving right heart failure appears compensated We will sign off at this time contact with any questions (2) TYE treated with BiPAP: (3) Respiratory failure requiring intubation: (4) Thrombocythemia: (5) Epistaxis: (6) Right-sided heart failure: Subjective Patient seen and examined, chart, medications, telemetry reviewed. She is remained in sinus rhythm past 24 hours no further atrial arrhythmias Today sitting out of bed in chair more alert no acute respiratory distress Physical Exam Constitutional: + morbidly obese; no acute distress Eyes: PERRL, conjunctivae normal, anicteric sclerae ENMT: external ear and nose normal, oropharynx normal Neck: trachea midline, no thyromegaly + thick neck Respiratory: Auscultation: + diminished lung sounds Cardiovascular: Rate/Rhythm: regular rate and regular rhythm Heart Sounds: normal S1 and normal S2; no gallop Vessels: normal carotid upstroke; no JVD Extremities: + edema (Minimal edema with chronic stasis changes) Gastrointestinal (Abdomen): normal bowel sounds, soft, nontender, no hepatosplenomegaly Skin: no rashes, warm and dry Psychiatric: A+Ox3, euthymic affect Results & Data Vital Signs (Past 12 Hours) Vital Signs Temp Pulse Pulse Pulse Resp BP Pulse Ox 04/03/19 10:56 36.9 C 73 19 111/67 99 04/03/19 10:00 83 04/03/19 07:18 36.8 C 78 20 121/70 97 04/03/19 05:36 89 22 99 04/03/19 04:08 77 04/03/19 03:28 91 H 26 H 98 04/03/19 03:08 36.4 C L 83 24 125/72 Laboratory Results Laboratory Results - last 24 hr 04/02/19 04/02/19 04/02/19 12:35 16:27 20:25 WBC RBC Hgb Hct MCV MCH MCHC RDW Std Deviation RDW Coeff of Flori Plt Count Immature Gran % (Auto) Neut % (Auto) Lymph % (Auto) [place] % (Auto) Eos % (Auto) Baso % (Auto) Immature Gran # (Auto) Neut # (Auto) Lymph # (Auto) [place] # (Auto) Eos # (Auto) Baso # (Auto) Absolute Nucleated RBC Nucleated RBC % (auto) Hypochromasia Sodium Potassium Chloride Carbon Dioxide Anion Gap BUN Creatinine Est Cr Clr Drug Dosing Est GFR ( Amer) Est GFR (Non-Af Amer) BUN/Creatinine Ratio Glucose POC Glucose 229 H 243 H Calcium Ammonia 44.0 H 04/03/19 04/03/19 04/03/19 07:22 07:45 07:45 WBC 7.01 RBC 3.21 L Hgb 8.2 L Hct 28.2 L MCV 87.9 MCH 25.5 MCHC 29.1 L RDW Std Deviation 56.8 H RDW Coeff of [place]i 18.0 H Plt Count 21 L* Immature Gran % (Auto) 2.1 Neut % (Auto) 76.4 Lymph % (Auto) 11.1 [place] % (Auto) 7.7 Eos % (Auto) 2.1 Baso % (Auto) 0.6 Immature Gran # (Auto) 0.15 H Neut # (Auto) 5.35 Lymph # (Auto) 0.78 L [place] # (Auto) 0.54 Eos # (Auto) 0.15 Baso # (Auto) 0.04 Absolute Nucleated RBC 0.40 H Nucleated RBC % (auto) 5.7 Hypochromasia Present Sodium 139 Potassium 4.5 Chloride 104 Carbon Dioxide 32 Anion Gap 3.0 BUN 40 H Creatinine 1.76 H Est Cr Clr Drug Dosing 40.4 Est GFR ( Amer) 35.1 Est GFR (Non-Af Amer) 30.2 BUN/Creatinine Ratio 22.6 H Glucose 141 H POC Glucose 159 H Calcium 10.7 H Ammonia 04/03/19 04/03/19 07:49 11:18 WBC RBC Hgb Hct MCV MCH MCHC RDW Std Deviation RDW Coeff of Flori Plt Count Immature Gran % (Auto) Neut % (Auto) Lymph % (Auto) [place] % (Auto) Eos % (Auto) Baso % (Auto) Immature Gran # (Auto) Neut # (Auto) Lymph # (Auto) [place] # (Auto) Eos # (Auto) Baso # (Auto) Absolute Nucleated RBC Nucleated RBC % (auto) Hypochromasia Sodium Potassium Chloride Carbon Dioxide Anion Gap BUN Creatinine Est Cr Clr Drug Dosing Est GFR ( Amer) Est GFR (Non-Af Amer) BUN/Creatinine Ratio Glucose POC Glucose 185 H Calcium Ammonia 30.5
[2019-04-03] MEDS ORDERED: dilTIAZem HCl 5 MG/ML 5 ML VIAL IV STA ×2 (16:35→18:35)
[2019-04-03] MEDS ORDERED: dilTIAZem HCl 5 MG/ML 5 ML VIAL IV ONE (16:39)
[2019-04-03] MEDS ORDERED: PHARMACY GLYCEMIC MGMT CONSULT SCH (16:47)
[2019-04-03] MEDS: ACETAMINOPHEN 325 MG TAB PO PRN (17:11)
[2019-04-03] MEDS ORDERED: dilTIAZem HCL 125 MG in DEXTROSE 5% 100 ML IV SCH (18:45)
[2019-04-03 19:22] LABS: BUN Creatinine Ratio 23.4 (10-20); Calcium 10.2 mg/dl (8.5-10.1); Creatinine Clr Calc Pharmacy 38.4 ml/min; Est GFR (Non-African American) 28.5; Magnesium 2.7 mg/dl (1.8-2.4); Potassium 4.8 mmol/L (3.5-5.1)
--- NOTE | 2019-04-03 19:48 | XRay Report ---
XR chest 1V portable HISTORY: 63 years-old Female hypoxia acute shortness of breath COMPARISON: Chest radiograph 03/27/2019 TECHNIQUE: Portable AP view of the chest FINDINGS: Cardiac silhouette is enlarged, unchanged. Interval extubation. Moderate hemidiaphragmatic elevation is new from comparison.. Linear left basilar predominant opacities suggest atelectasis. No pneumothor ax or overt pulmonary edema. No large pleural effusion. Multiple bilateral rib fractures redemonstrat ed, most of which are likely chronic. Fractures of the posterolateral left ribs possibly subacute. De generative changes of the shoulders and spine. IMPRESSION: 1. Status post extubation. 2. New moderate right hemidiaphragmatic elevation. Correlate clinically to exclude atelectasis with m ucous plugging 3. Linear left basilar predominant densities suggest atelectasis. ACT 112: Negative or not required by law. The above report was generated using voice recognition software. It may contain grammatical, syntax o r spelling errors. Electronically signed by: Vin Titus M.D. 04/03/2019 7:47 PM
[2019-04-03] MEDS: ACETYLCYSTEINE 10% INHAL SOLN 4 ML **DISPENSED BY RESP. INH SCH (20:38)
[2019-04-03] MEDS: LEVALBUTEROL HCL 0.63 MG/3 ML NEB NEB PRN (20:38)
[2019-04-03] MEDS: ENOXAPARIN INJ 40 MG/0.4 ML SYR SQ SCH (22:06)
[2019-04-04] MEDS: INSULIN ASPART 100 UNITS/ML 3 ML PEN SC SCH ×7 (00:15→20:42)
[2019-04-04 06:44] LABS: Hematocrit (blood only) 25.4 % (37-47); Hemoglobin 7.5 g/dL (12.0-16.0); Mean Corpuscular Hemoglobin 25.8 pg (25-34); Mean Corpuscular Hgb Conc 29.5 g/dL (32-36); Mean Corpuscular Volume 87.3 fL (80-100); Nucleated RBC # (auto) 0.53 K/uL (0-0); Nucleated RBC % (auto) 7.8 %; Platelet Count 17 K/uL (130-400); Red Blood Count 2.91 M/uL (4.2-5.4); White Blood Count 6.79 K/uL (4.8-10.8)
[2019-04-04] MEDS: LEVALBUTEROL HCL 0.63 MG/3 ML NEB NEB PRN ×2 (06:56→19:21)
[2019-04-04] MEDS: ACETYLCYSTEINE 10% INHAL SOLN 4 ML **DISPENSED BY RESP. INH SCH ×2 (06:57→19:20)
[2019-04-04 06:59] LABS: ALC (manual) 0.53 K/uL (1.2-3.4); Basophils # (manual) 0.12 K/uL (0-0.2); Basophils % (manual) 1.7 %; Lymphocytes # (manual) 0.53 K/uL (1.2-3.4); Lymphocytes % (manual) 7.8 %; Monocytes # (manual) 0.47 K/uL (0.11-0.59); Monocytes % (manual) 6.9 %; Myelocytes # (manual) 0.18 K/uL (0-0); Myelocytes % (manual) 2.6 %; Spherocytes 1+
[2019-04-04 07:06] LABS: BUN Creatinine Ratio 25.7 (10-20); Calcium 10.3 mg/dl (8.5-10.1); Creatinine Clr Calc Pharmacy 36.9 ml/min; Est GFR (African American) 31.4; Est GFR (Non-African American) 27.1; Potassium 4.5 mmol/L (3.5-5.1)
[2019-04-04] MEDS ORDERED: SODIUM CHLORIDE 0.9% 250 ML IV PRN ×2 (07:33→07:52)
--- NOTE | 2019-04-04 08:19 | Pulmonology Progress Note ---
Date of Service April 04, 2019 Assessment & Plan (1) Acute on chronic respiratory failure with hypoxia and hypercapnia: -- I was recalled overnight as patient was needing more oxygen. On chest x-ray from 04/03/19 it was found that patient has elevated right hemidiaphragm which was more than on previous x-rays. It has to be noted that CXR was poor inspiratory effort. Chest PT, inhaled Mucomyst and keeping patient on the left side along with incentive spirometry was ordered. Chest x-ray from today although poor inspiratory effort shows improvement in aeration on the right side. Although patient was lethargic and somnolent at the time of examination. Ordered a stat ABG and asked the nurse to put her on BiPAP. When supplying oxygen to the patient recommend keeping O2 saturation between 80 to 92% as over her oxygenation is not good for the patient given she is hyp ercapnic. Patient was given total 6 doses of Acetazolamide for her metabolic alkalosis which has significantly improved. Recommend titrating down on diuresis. --TYE/OHS Continue with BiPAP 14/10 with 40% FiO2 nightly and as needed shortness of breath Patient is unsure of her CPAP settings at home. Patient will need a backup rate for her CPAP/BiPAP at home given that she takes opioids for her pain. Patient has nasal pillow CPAP at home. For the time being recommend full-face CPAP given that the patient had epistaxis. Use humidified oxygen. 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 No acute distress. Patient is lethargic at the time of examination. She does respond to questions appropriately on awakening her. As per the nurse who was at bedside patient used BiPAP overnight. Patient denies any chest pain, no nausea or vomiting. Appetite good. No more epistaxis. Was called overnight as patient was requiring more oxygen chest x-ray was done overnight which showed elevated right hemidiaphragm. Chest x-ray from last night reviewed personally it is an expiratory film with elevation of the right hemidiaphragm appreciated more than usual. Review of Systems Review of Systems: All systems reviewed & are unremarkable except as noted in HPI & below Physical Exam Physical Exam: Constitutional: No acute distress HEENT: EOMI, PERRLA Respiratory system: Decreased air entry bilaterally, minimal crackles bilateral lower lobes, no wheeze, no rhonchi CVS: S1-S2 positive, no murmurs or gallops, accentuated P2, irregular Abdomen: Soft, nontender, nondistended, positive bowel sounds x4 Extremities: +2 pulses bilaterally radialis/ dorsalis pedis, no cyanosis, no edema-pruning of the skin bilateral lower extremity appreciated Neuro: Somnolent but answering questions on awakening her Psych: Normal mood and affect G/U: Positive Ta Skin: no rashes, warm and dry Lymphatic: no cervical or axillary lymphadenopathy Results & Data Vital Signs (Past 12 Hours) Vital Signs Temp Pulse Pulse Resp BP Pulse Ox 04/04/19 07:30 36.5 C 74 28 H 155/80 H 98 04/04/19 07:00 79 26 H 98 04/04/19 06:59 79 26 H 98 04/04/19 05:17 69 28 H 96 04/04/19 05:04 36.9 C 61 20 100/75 91 04/04/19 01:16 78 26 H 98 04/04/19 00:00 74 04/03/19 23:23 36.7 C 69 24 130/77 98 04/03/19 22:39 76 24 96 04/03/19 20:44 77 16 97 04/04/19 06:20 04/04/19 06:20 PG Care Time/CCT Total # of Minutes Spent Total Time Spent with Patient: Total time spent is greater than 50% in coordination of care (as documented) at patient's floor/unit and/or counseling patient:
[2019-04-04] MEDS: FAMOTIDINE 20 MG TAB PO SCH ×2 (08:26→09:29)
[2019-04-04] MEDS: RIFAXIMIN 550 MG TABLET PO SCH ×4 (08:26→20:35)
[2019-04-04] MEDS: LACTULOSE SYRUP 10 GM/15 ML BTL 473 ML PO SCH ×2 (08:26→12:00)
[2019-04-04] MEDS: AMLODIPINE BESYLATE 5 MG TAB PO SCH ×3 (08:28→13:13)
[2019-04-04] MEDS: METOPROLOL SUCC 50MG EXT REL TAB PO SCH ×4 (08:28→17:25)
[2019-04-04] MEDS: LANSOPRAZOLE 30 MG SOLTAB NG SCH ×3 (08:28→20:35)
--- NOTE | 2019-04-04 08:33 | XRay Report ---
XR chest 1V portable CLINICAL HISTORY: 63 years-old Female presenting with hypoxia, r hemidiaphragm elevation. TECHNIQUE: Portable upright AP view of the chest was obtained. COMPARISON: 04/03/2019. FINDINGS: Cardiac silhouette mildly enlarged. Mildly low lung volumes with persistent elevation of the right he midiaphragm. Bandlike opacity in the paramediastinal left lung base as on prior. No new focal opacity . No large effusion or pneumothorax. Advanced degenerative changes of the shoulders. Multiple old rib deformities are suspected. Several external leads overlie the left upper quadrant to grating evaluat ion in this region. IMPRESSION: 1. Stable examination. Left basilar atelectasis suspected in the setting of mildly low lung volumes. ACT 112: Negative or not required by law. Electronically signed by: Adithya Simeon M.D. 04/04/2019 8:32 AM
[2019-04-04] MEDS ORDERED: INSULIN GLARGINE SOLOSTAR 100 UNITS/ML 3 ML PEN SC ONE (09:00)
[2019-04-04 09:30] LABS: Allen Test Pos (Pos); Base Excess ABG 2.9 mEq/L (-9-1.8); HCO3 ABG 29 mmol/L (19-24); PCO2 ABG 54 mmHg (35-46); PO2 ABG 89 mm/Hg (80-95); pH ABG 7.35 (7.35-7.45)
[2019-04-04] MEDS: ACETAMINOPHEN 325 MG TAB PO PRN (13:13)
--- NOTE | 2019-04-04 13:40 | Cardiology Progress Note ---
Date of Service April 04, 2019 Assessment & Plan (1) Atrial fibrillation with rapid ventricular response: Patient now in sinus rhythm and maintaining sinus rhythm Would continue Toprol-XL 50 mg twice per day (metoprolol succinate) Anticoagulation contraindicated Patient improved with rehydration after aggressive diuresis. Would use caution with diuretics may ultimately need resumption of far future. Renal function is improving right heart failure appears compensated (2) TYE treated with BiPAP: Distant distant but patient remains a full code with underlying metastatic breast carcinoma and I believe poor overall prognosis. We will ask our palliative care team for their assistance with goal management with family. (3) Respiratory failure requiring intubation: (4) Thrombocythemia: (5) Epistaxis: (6) Right-sided heart failure: Subjective Patient seen and examined, on BiPAP and unarousable. Events of last evening reviewed transient episodes of atrial fibrillation with successful conversion to normal sinus rhythm. Telemetry reviewed: Sustained atrial fibrillation overnight, now in normal sinus rhythm. Review of Systems Review of Systems: Unobtainable due to reduced consciousness Physical Exam Physical Exam: General: Unarousable on BiPAP. No acute distress HEENT: Normocephalic, atraumatic. Pupils equal, round and reactive to light and accommodation. Extraocular muscles are intact. Anicteric sclera. Moist mucous membranes. Neck: No JVD. No bruit. Cardiovascular: Regular. Positive S-4. Normal S-1 and S-2. No S-3. No murmurs or rubs. Pulmonary: Poor air movement diffusely. Abdomen: Bowel sounds x 4, soft. No rebound, guarding or tenderness. No organomegaly. Extremities: No clubbing, cyanosis or edema. +2 pedal pulses bilaterally. Skin: Warm and dry. Results & Data Vital Signs (Past 12 Hours) Vital Signs Temp Pulse Pulse Resp BP BP Pulse Ox 04/04/19 12:50 36.7 C 80 24 128/78 98 04/04/19 12:21 36.7 C 73 24 115/72 100 04/04/19 12:02 36.7 C 74 24 115/71 100 04/04/19 11:55 36.8 C 73 24 120/74 100 04/04/19 11:47 36.8 C 66 24 119/73 98 04/04/19 11:21 36.8 C 76 24 126/77 99 04/04/19 11:04 71 30 H 99 04/04/19 10:46 76 24 131/76 99 04/04/19 10:10 36.7 C 72 24 126/75 98 04/04/19 09:35 36.7 C 62 24 133/78 98 04/04/19 09:21 36.6 C 74 22 126/76 98 04/04/19 09:06 36.4 C L 82 24 119/72 99 04/04/19 08:49 36.4 C L 80 24 105/62 98 04/04/19 08:37 77 30 H 98 04/04/19 07:30 36.5 C 74 28 H 155/80 H 98 04/04/19 07:00 79 26 H 98 04/04/19 06:59 79 26 H 98 04/04/19 05:17 69 28 H 96 04/04/19 05:04 36.9 C 61 20 100/75 91
--- NOTE | 2019-04-04 14:24 | Pharmacy Report ---
Glycemic Control Progress Note - Date of Service April 04, 2019 - Scope Glycemic Pharmacist consulted for glycemic control to write orders per [facility] inpatient glycemic control protocol. - Objective Accuchecks BSG(last 24 hours):: 04/03/19 04/03/19 04/03/19 16:18 18:53 20:15 Glucose 241 H POC Glucose 241 H 294 H 04/04/19 04/04/19 04/04/19 00:01 03:54 06:20 Glucose 192 H POC Glucose 231 H 200 H 04/04/19 04/04/19 07:32 11:19 Glucose POC Glucose 227 H 176 H HbA1c:: Hemoglobin A1c 5.8 % (4.5-5.6) H 03/25/19 06:32 - Recent Pertinent Medications The patient is currently receiving: * Basal insulin: Lantus 10-20 units every 12 hours * Correctional Insulin: Novolog Correction per scale ACHS Goal Range: Low 120 mg/dL - High 160 mg/dL Correction Factor: 20 mg/dL/unit * Prandial insulin: Per carb ratio of 1 unit per 7 grams CHO consumed - Outpatient Anti-Diabetic Meds LANTUS 0-36 UNITS DAILY + NOVOLOG - Assessment & Plan ASSESSMENT: * See progress note from 04/03/19 for more background info, in short: * Pt receiving SQ basal bolus insulin regimen for hyperglycemia secondary to baseline DM (outpatient regimen on hold). * Patient is currently receiving an average of 60 units of insulin per day * 30 units of basal insulin * 30 units of prandial/correctional insulin * BSGs ranging 159 - 294 mg/dl over the past 24hrs * Changes needed to insulin regimen: * AM Fasting BSG = 227 mg/dl. This is above goal range for patient based on inpatient targets and co-morbidities. Therefore Basal insulin will be increased. Patient received 30 units yesterday with additional 5 units overnight. Give 25 units this morning. Plan for 15 units if BSG less than 140 mg/dL (indicating concerning decrease in BSG) or 20 units if above. Total dose today range from 40-45 units. * Post-prandial BSGs are elevated. CF/CR tightened yesterday at dinner and blood sugars trended down from breakfast to lunch so monitor. * Total daily dose = 70-80 units. PLAN FOR INPATIENT GLYCEMIC CONTROL: * INCREASING Lantus to 25 units SQ x1 then 20 units SQ BID (15 units if blood sugar under 140 mg/dL) * Continuing correction factor of 20 mg/dl/unit * Continuing carb ratio of 1 unit per 7 grams CHO consumed * Continuing goal range of Low 120 mg/dL - High 160 mg/dL * Please note that the plan above was derived based on current level of insulin resistance and hospital stress. These recommendations are appropriate for inpatient admission only. Plan of care upon discharge will need to be reassessed to avoid potential outpatient hypo/hyperglycemia. Thank you.
[2019-04-04 17:20] LABS: Nucleated RBC % (auto) 7.4 %
[2019-04-04] MEDS: OXYCODONE HCL SOLN 5 MG/5 ML UDC NG PRN (17:34)
[2019-04-04 17:57] LABS: Hematocrit (blood only) 26.6 % (37-47); Hemoglobin 8.1 g/dL (12.0-16.0); Mean Corpuscular Hemoglobin 26.5 pg (25-34); Mean Corpuscular Hgb Conc 30.5 g/dL (32-36); Mean Corpuscular Volume 86.9 fL (80-100); Platelet Count 39 K/uL (130-400); RDW Coefficient of Variation 17.3 % (11.5-14.5); RDW Standard Deviation 54.2 fL (36.4-46.3); Red Blood Count 3.06 M/uL (4.2-5.4); White Blood Count 8.09 K/uL (4.8-10.8)
[2019-04-04 17:58] LABS: ALC (manual) 1.29 K/uL (1.2-3.4); ANC (manual) 6.23 K/uL (1.4-6.5); Basophils # (manual) 0.07 K/uL (0-0.2); Basophils % (manual) 0.9 %; Eosinophils # (manual) 0.07 K/uL (0-0.5); Eosinophils % (manual) 0.9 %; Lymphocytes # (manual) 1.29 K/uL (1.2-3.4); Lymphocytes % (manual) 15.9 %; Monocytes # (manual) 0.28 K/uL (0.11-0.59); Monocytes % (manual) 3.5 %; Myelocytes # (manual) 0.15 K/uL (0-0); Myelocytes % (manual) 1.8 %; Neutrophils # (manual) 6.23 K/uL (1.4-6.5); Platelet Estimate Decreased (Normal); Polychromasia 1+
--- NOTE | 2019-04-04 19:30 | Hospitalist Progress Note ---
Date of Service April 04, 2019 Assessment & Plan (1) Epistaxis: (1) Respiratory failure requiring intubation: (2) Acute on chronic respiratory failure with hypoxia and hypercapnia: (3) Epistaxis: (4) Severe anemia: (5) Thrombocythemia: per Dr. Sena's notes: This is a 63-year-old female who has significant past medical history of metastatic breast cancer to bone, T2 DM, HLD, obesity hypoventilation syndrome, right heart failure, chronic ITP, history of DVT anticoagulated on Eliquis, rheumatoid arthritis, depression who presents to ED at the recommendation of Dr. Light hematology oncology secondary to abnormal labs and epistaxis. In ED a nasal packing was placed trans-examic acid and bleeding has ceased. She did have a posterior pharynx blood clot that was removed by ENT. RN reported another clot today-Rec notifying ENT In ED patient remained hemodynamically stable. Her H&H was 5.6 and 18.7 with platelet count of 15 BUN/creatinine 41 and 1.15, glucose 184, alk phos 121, albumin 2.4, corrected calcium 11.2, mag 1.7 She was transfused 2 units PRBC. On 03/30 Fr Viv-ENT removed the packing, Fibrillar was placed into the right nasal cavity along the septum. This material is absorbable and will come out on its own or be absorbed over time. Ff up approximately 2 weeks after discharge. Held Eliquis, Needed 2 units of Platelets 03/29, IV Unasyn stopped on 03/31 -- discussed with [employer] Inspector/Oncologist Dr. Light- recommend to resume anticoagulation given history of BL DVT last year and cancer discussed with ENT Dr. Coles- ok to start Lovenox 40mg SC -- no recurrence of epistaxis since starting Lovenox 04/01/19 Plt 17k, 1 unit plt transfused -- continue to monitor Anemia -- Hg 7 -- 1 unit PRBC ordered New-onset atrial fibrillation -- converted to SR off Diltiazem drip continue metoprolol succinate 50 mg p.o. twice a day -- K 4.5 -- continue to monitor full anticoagulation contraindicated Cardiology consult appreciated Encephalopathy, secondary to Elevated Ammonia, likely from Liver Mets -- NH4 increased Rifaximin added to Lactulose -- Nh4 55 but mental status improved -- ABG: no respiratory acidosis, on Bipap -- improving GI consulted patient adamantly declines lactulose, will d/c for now and observe while on Rifaximin (6) CKD (chronic kidney disease), stage III: Stable (7) Metastatic breast cancer: As per Dr. Sena's notes: Metastatic breast cancer to bone, lung Follows Dr. Light Receiving Xgeva and Faslodex -treatments held given thrombocytopenia oxycodone for metastatic pain - verified in pdmp (8) Right-sided heart failure: Chronic right sided heart failure Echo 09/04/2018 revealed normal LVEF, grade 1 diastolic dysfunction, right ventricular cavity dilated with diffuse right ventricular hypokinesis Monitor volume status closely given transfusion Patient prescribed O2 2 L at home --Lasix held secondary to alkalosis transitioned to Acetazolamide twice a day , received x 3 days, now discontinued as patient appears euvolemic continue to monitor (9) Hyperammonemia: management noted above (10) TYE (obstructive sleep apnea): per Pulmonary SVC: Patient will need a backup rate for her CPAP/BiPAP at home given that she takes opioids for her pain. Patient has nasal pillow CPAP at home. For the time being recommend full-face CPAP given that the patient had epistaxis. Use humidified oxygen. (11) DM type 2 (diabetes mellitus, type 2): 01/07/19 A1c 9.2 Lantus/NovoLog per protocol Repeat A1c 5.8 -- Pharmacy consulted (12) History of DVT (deep vein thrombosis): History of DVT and also with hypercoagulable state given metastatic carcinoma Hold Eliquis in setting of severe anemia and thrombocytopenia -- discussed with Oncologist and ENT- recommend Lovenox 40mg SC daily (13) Rheumatoid arthritis: Patient takes oxycodone 5 mg every 4 hours Verified with PDMP -- decreased to q8h for now (14) DVT prophylaxis: SCD/TEDS Contraindicated in setting of severe anemia, thrombocytopenia Hold Eliquis -- Lovenox 40mg SC daily Disposition: pending evaluation and management of altered mental status, elevated ammonia, A fib, monitoring of epistaxis and thrombocytopenia while on lovenox: in progress will need portable home on O2, ENT in office after 2 weeks after DC with Dr Nam Subjective ff up for epistaxis, thrombocytopenia, elevated ammonia, etc. seen in AM, lethargic but not in distress re-evaluated in the afternoon, sitting up, alert, oriented x 3, answers questions appropriately denies shortness of breath, chest pain, palpitations no bleeding no other symptoms Review of Systems Review of Systems: All systems reviewed & are unremarkable except as noted in HPI & below Physical Exam Physical Exam: General- oriented x 2, not in distress, speaks in sentences with no effort or accessory muscle use Eyes- anicteric Neck- no JVD Lungs- clear breath sounds bilaterally Heart- normal rate, regular rhythm; no murmurs Abdomen- normal bowel sounds, nondistended, soft, nontender Extremities- no pretibial edema, no calf tenderness Neuro- alert, oriented x 2; no gross focal neurologic deficits Skin- warm & dry Results & Data Vital Signs (Past 12 Hours) Vital Signs Temp Pulse Pulse Resp BP BP Pulse Ox 04/04/19 19:21 87 19 99 04/04/19 18:00 93 04/04/19 14:59 36.6 C 79 20 106/66 89 L 04/04/19 14:03 90 04/04/19 13:50 36.9 C 77 20 131/51 L 90 04/04/19 12:50 36.7 C 80 24 128/78 98 04/04/19 12:21 36.7 C 73 24 115/72 100 04/04/19 12:02 36.7 C 74 24 115/71 100 04/04/19 11:55 36.8 C 73 24 120/74 100 04/04/19 11:47 36.8 C 66 24 119/73 98 04/04/19 11:21 36.8 C 76 24 126/77 99 04/04/19 11:04 71 30 H 99 04/04/19 10:46 76 24 131/76 99 04/04/19 10:10 36.7 C 72 24 126/75 98 04/04/19 09:35 36.7 C 62 24 133/78 98 04/04/19 09:21 36.6 C 74 22 126/76 98 04/04/19 09:06 36.4 C L 82 24 119/72 99 04/04/19 08:49 36.4 C L 80 24 105/62 98 04/04/19 08:37 77 30 H 98 04/04/19 07:30 36.5 C 74 28 H 155/80 H 98 Laboratory Results Laboratory Results - last 24 hr 04/03/19 04/04/19 04/04/19 20:15 00:01 03:54 WBC RBC Hgb Hct MCV MCH MCHC RDW Std Deviation RDW Coeff of Flori Plt Count Absolute Nucleated RBC Nucleated RBC % (auto) Neutrophils % (Manual) Lymphocytes % (Manual) Monocytes % (Manual) Eosinophils % (Manual) Basophils % (Manual) Myelocytes % (Man) Neutrophils # (Manual) Total Absolute Neuts Lymphocytes # (Manual) Total Abs Lymphocytes Monocytes # (Manual) Eosinophils # (Manual) Basophils # (Manual) Myelocytes # (Manual) Platelet Estimate Polychromasia Spherocytes ABG pH ABG pCO2 ABG pO2 ABG HCO3 ABG O2 Saturation ABG Base Excess Robert Test Barometric Pressure Oxygen Given Sodium Potassium Chloride Carbon Dioxide Anion Gap BUN Creatinine Est Cr Clr Drug Dosing Est GFR ( Amer) Est GFR (Non-Af Amer) BUN/Creatinine Ratio Glucose POC Glucose 294 H 231 H 200 H Calcium Ammonia Blood Type Antibody Screen Crossmatch 04/04/19 04/04/19 04/04/19 06:20 06:20 06:24 WBC 6.79 RBC 2.91 L Hgb 7.5 L Hct 25.4 L MCV 87.3 MCH 25.8 MCHC 29.5 L RDW Std Deviation 56.0 H RDW Coeff of Flori 18.0 H Plt Count 17 L* Absolute Nucleated RBC 0.53 H Nucleated RBC % (auto) 7.8 Neutrophils % (Manual) 81.0 Lymphocytes % (Manual) 7.8 Monocytes % (Manual) 6.9 Eosinophils % (Manual) Basophils % (Manual) 1.7 Myelocytes % (Man) 2.6 Neutrophils # (Manual) 5.50 Total Absolute Neuts 5.50 Lymphocytes # (Manual) 0.53 L Total Abs Lymphocytes 0.53 L Monocytes # (Manual) 0.47 Eosinophils # (Manual) Basophils # (Manual) 0.12 Myelocytes # (Manual) 0.18 H Platelet Estimate Polychromasia Spherocytes 1+ ABG pH ABG pCO2 ABG pO2 ABG HCO3 ABG O2 Saturation ABG Base Excess Robert Test Barometric Pressure Oxygen Given Sodium 138 Potassium 4.5 Chloride 107 Carbon Dioxide 29 Anion Gap 2.0 L BUN 50 H Creatinine 1.93 H Est Cr Clr Drug Dosing 36.9 Est GFR ( Amer) 31.4 Est GFR (Non-Af Amer) 27.1 BUN/Creatinine Ratio 25.7 H Glucose 192 H POC Glucose Calcium 10.3 H Ammonia 51.0 H Blood Type Antibody Screen Crossmatch 04/04/19 04/04/19 04/04/19 07:32 08:03 09:17 WBC RBC Hgb Hct MCV MCH MCHC RDW Std Deviation RDW Coeff of Flori Plt Count Absolute Nucleated RBC Nucleated RBC % (auto) Neutrophils % (Manual) Lymphocytes % (Manual) Monocytes % (Manual) Eosinophils % (Manual) Basophils % (Manual) Myelocytes % (Man) Neutrophils # (Manual) Total Absolute Neuts Lymphocytes # (Manual) Total Abs Lymphocytes Monocytes # (Manual) Eosinophils # (Manual) Basophils # (Manual) Myelocytes # (Manual) Platelet Estimate Polychromasia Spherocytes ABG pH 7.35 ABG pCO2 54 H ABG pO2 89 ABG HCO3 29 H ABG O2 Saturation 96.0 H ABG Base Excess 2.9 H Robert Test Pos Barometric Pressure 743.6 Oxygen Given 30% Sodium Potassium Chloride Carbon Dioxide Anion Gap BUN Creatinine Est Cr Clr Drug Dosing Est GFR ( Amer) Est GFR (Non-Af Amer) BUN/Creatinine Ratio Glucose POC Glucose 227 H Calcium Ammonia Blood Type B Positive Antibody Screen NEGATIVE Crossmatch See Detail 04/04/19 04/04/19 04/04/19 11:19 16:13 17:03 WBC 8.09 RBC 3.06 L Hgb 8.1 L Hct 26.6 L MCV 86.9 MCH 26.5 MCHC 30.5 L RDW Std Deviation 54.2 H RDW Coeff of Flori 17.3 H Plt Count 39 L D Absolute Nucleated RBC 0.60 H Nucleated RBC % (auto) 7.4 Neutrophils % (Manual) 77.0 Lymphocytes % (Manual) 15.9 Monocytes % (Manual) 3.5 Eosinophils % (Manual) 0.9 Basophils % (Manual) 0.9 Myelocytes % (Man) 1.8 Neutrophils # (Manual) 6.23 Total Absolute Neuts 6.23 Lymphocytes # (Manual) 1.29 Total Abs Lymphocytes 1.29 Monocytes # (Manual) 0.28 Eosinophils # (Manual) 0.07 Basophils # (Manual) 0.07 Myelocytes # (Manual) 0.15 H Platelet Estimate Decreased L Polychromasia 1+ Spherocytes ABG pH ABG pCO2 ABG pO2 ABG HCO3 ABG O2 Saturation ABG Base Excess Robert Test Barometric Pressure Oxygen Given Sodium Potassium Chloride Carbon Dioxide Anion Gap BUN Creatinine Est Cr Clr Drug Dosing Est GFR ( Amer) Est GFR (Non-Af Amer) BUN/Creatinine Ratio Glucose POC Glucose 176 H 170 H Calcium Ammonia Blood Type Antibody Screen Crossmatch Diagnostic Findings Laboratory Results - last 24 hr 04/03/19 04/04/19 04/04/19 20:15 00:01 03:54 WBC RBC Hgb Hct MCV MCH MCHC RDW Std Deviation RDW Coeff of Flori Plt Count Absolute Nucleated RBC Nucleated RBC % (auto) Neutrophils % (Manual) Lymphocytes % (Manual) Monocytes % (Manual) Eosinophils % (Manual) Basophils % (Manual) Myelocytes % (Man) Neutrophils # (Manual) Total Absolute Neuts Lymphocytes # (Manual) Total Abs Lymphocytes Monocytes # (Manual) Eosinophils # (Manual) Basophils # (Manual) Myelocytes # (Manual) Platelet Estimate Polychromasia Spherocytes ABG pH ABG pCO2 ABG pO2 ABG HCO3 ABG O2 Saturation ABG Base Excess Robert Test Barometric Pressure Oxygen Given Sodium Potassium Chloride Carbon Dioxide Anion Gap BUN Creatinine Est Cr Clr Drug Dosing Est GFR ( Amer) Est GFR (Non-Af Amer) BUN/Creatinine Ratio Glucose POC Glucose 294 H 231 H 200 H Calcium Ammonia Blood Type Antibody Screen Crossmatch 04/04/19 04/04/19 04/04/19 06:20 06:20 06:24 WBC 6.79 RBC 2.91 L Hgb 7.5 L Hct 25.4 L MCV 87.3 MCH 25.8 MCHC 29.5 L RDW Std Deviation 56.0 H RDW Coeff of Flori 18.0 H Plt Count 17 L* Absolute Nucleated RBC 0.53 H Nucleated RBC % (auto) 7.8 Neutrophils % (Manual) 81.0 Lymphocytes % (Manual) 7.8 Monocytes % (Manual) 6.9 Eosinophils % (Manual) Basophils % (Manual) 1.7 Myelocytes % (Man) 2.6 Neutrophils # (Manual) 5.50 Total Absolute Neuts 5.50 Lymphocytes # (Manual) 0.53 L Total Abs Lymphocytes 0.53 L Monocytes # (Manual) 0.47 Eosinophils # (Manual) Basophils # (Manual) 0.12 Myelocytes # (Manual) 0.18 H Platelet Estimate Polychromasia Spherocytes 1+ ABG pH ABG pCO2 ABG pO2 ABG HCO3 ABG O2 Saturation ABG Base Excess Robert Test Barometric Pressure Oxygen Given Sodium 138 Potassium 4.5 Chloride 107 Carbon Dioxide 29 Anion Gap 2.0 L BUN 50 H Creatinine 1.93 H Est Cr Clr Drug Dosing 36.9 Est GFR ( Amer) 31.4 Est GFR (Non-Af Amer) 27.1 BUN/Creatinine Ratio 25.7 H Glucose 192 H POC Glucose Calcium 10.3 H Ammonia 51.0 H Blood Type Antibody Screen Crossmatch 04/04/19 04/04/19 04/04/19 07:32 08:03 09:17 WBC RBC Hgb Hct MCV MCH MCHC RDW Std Deviation RDW Coeff of Flori Plt Count Absolute Nucleated RBC Nucleated RBC % (auto) Neutrophils % (Manual) Lymphocytes % (Manual) Monocytes % (Manual) Eosinophils % (Manual) Basophils % (Manual) Myelocytes % (Man) Neutrophils # (Manual) Total Absolute Neuts Lymphocytes # (Manual) Total Abs Lymphocytes Monocytes # (Manual) Eosinophils # (Manual) Basophils # (Manual) Myelocytes # (Manual) Platelet Estimate Polychromasia Spherocytes ABG pH 7.35 ABG pCO2 54 H ABG pO2 89 ABG HCO3 29 H ABG O2 Saturation 96.0 H ABG Base Excess 2.9 H Robert Test Pos Barometric Pressure 743.6 Oxygen Given 30% Sodium Potassium Chloride Carbon Dioxide Anion Gap BUN Creatinine Est Cr Clr Drug Dosing Est GFR ( Amer) Est GFR (Non-Af Amer) BUN/Creatinine Ratio Glucose POC Glucose 227 H Calcium Ammonia Blood Type B Positive Antibody Screen NEGATIVE Crossmatch See Detail 04/04/19 04/04/19 04/04/19 11:19 16:13 17:03 WBC 8.09 RBC 3.06 L Hgb 8.1 L Hct 26.6 L MCV 86.9 MCH 26.5 MCHC 30.5 L RDW Std Deviation 54.2 H RDW Coeff of Flori 17.3 H Plt Count 39 L D Absolute Nucleated RBC 0.60 H Nucleated RBC % (auto) 7.4 Neutrophils % (Manual) 77.0 Lymphocytes % (Manual) 15.9 Monocytes % (Manual) 3.5 Eosinophils % (Manual) 0.9 Basophils % (Manual) 0.9 Myelocytes % (Man) 1.8 Neutrophils # (Manual) 6.23 Total Absolute Neuts 6.23 Lymphocytes # (Manual) 1.29 Total Abs Lymphocytes 1.29 Monocytes # (Manual) 0.28 Eosinophils # (Manual) 0.07 Basophils # (Manual) 0.07 Myelocytes # (Manual) 0.15 H Platelet Estimate Decreased L Polychromasia 1+ Spherocytes ABG pH ABG pCO2 ABG pO2 ABG HCO3 ABG O2 Saturation ABG Base Excess Robert Test Barometric Pressure Oxygen Given Sodium Potassium Chloride Carbon Dioxide Anion Gap BUN Creatinine Est Cr Clr Drug Dosing Est GFR ( Amer) Est GFR (Non-Af Amer) BUN/Creatinine Ratio Glucose POC Glucose 176 H 170 H Calcium Ammonia Blood Type Antibody Screen Crossmatch
[2019-04-04] MEDS ORDERED: OXYCODONE HCL IR 5 MG TAB (IMMEDIATE RELEASE) PO STA ×2 (20:27→21:22)
[2019-04-04] MEDS: INSULIN GLARGINE SOLOSTAR 100 UNITS/ML 3 ML PEN SC SCH (20:39)
[2019-04-04 21:13] LABS: Calcium 9.9 mg/dl (8.5-10.1); Creatinine Clr Calc Pharmacy 45.3 ml/min; Est GFR (African American) 40.2; Est GFR (Non-African American) 34.7; Magnesium 2.2 mg/dl (1.8-2.4)
[2019-04-04] MEDS ORDERED: LIDOCAINE 5% 1 PATCH TD STA (21:22)
[2019-04-04] MEDS ORDERED: HYDROmorphone INJ 0.5 MG/0.5 ML SYR IV STA (21:36)
--- NOTE | 2019-04-04 22:15 | CT Scan Report ---
CT lumbar spine wo con CLINICAL HISTORY: 63 years-old Female presenting with worsening back pain. TECHNIQUE: Multidetector CT of the lumbar spine was performed without the use of intravenous contrast . IV contrast: None. One or more dose lowering techniques were used consistent with the principles of ALARA (as low as reasonably achievable), including automatic exposure control, mA or kV adjustment t o individual patient size, and/or use of iterative reconstruction. COMPARISON: Head CT from 05/21/2018. CT DOSE (mGy.cm): The estimated cumulative dose is 1899.89 mGy.cm. 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 Severely heterogeneous medullary bone. The patient's body habitus and the severity of the heterogeneo us bone marrow significant Limited exam. Bilateral pars defects of L5. 9 mm of grade 1-2 anterolisthe sis of L5 on S1. Trace retrolisthesis of L2 on L3. Multilevel intervertebral disc height loss to vary ing degrees, most severe from L1-2 through L3-4 and L5-S1. Vacuum disc phenomenon noted. Mild posteri or spondylitic spurring. Osseous neural foraminal narrowing. Severe degree bilaterally at L5-S1 and t o a lesser degree at the remaining levels notably on the left at L2-3 and L4-5. No acute fracture or subluxation. Deformity of the S1 is most likely chronic. Trace scoliosis. Paraspinal soft tissues wit hin normal limits. Atherosclerosis. IMPRESSION: 1. Severe heterogeneity of the medullary bone, consistent with the patient's known breast cancer met astases. 2. Allowing for limited image quality related to the severely heterogeneous bone marrow as well as b brook habitus, no convincing evidence of acute osseous injury. 3. Bilateral pars defects of L5 with grade 1-2 anterolisthesis of L5 on S1. 4. Multilevel degenerative changes with multilevel neural foraminal narrowing. ACT 112: Negative or not required by law. Electronically signed by: Adithya Simeon M.D. 04/04/2019 10:14 PM
[2019-04-04] MEDS: ENOXAPARIN INJ 40 MG/0.4 ML SYR SQ SCH (22:44)
[2019-04-04] MEDS: LIDOCAINE 5% 1 PATCH TD SCH (22:50)
[2019-04-05 06:24] LABS: BUN Creatinine Ratio 33.6 (10-20); Calcium 10.2 mg/dl (8.5-10.1); Creatinine Clr Calc Pharmacy 44.8 ml/min; Est GFR (African American) 39.6; Est GFR (Non-African American) 34.2; Potassium 3.9 mmol/L (3.5-5.1)
[2019-04-05 06:26] LABS: Basophils # (auto) 0.06 K/uL (0-0.2); Basophils % (auto) 0.9 %; Eosinophils # (auto) 0.15 K/uL (0-0.5); Eosinophils % (auto) 2.1 %; Hematocrit (blood only) 25.4 % (37-47); Hemoglobin 7.8 g/dL (12.0-16.0); Immature Granulocytes # (auto) 0.21 K/uL (0.00-0.02); Lymphocytes # (auto) 0.79 K/uL (1.2-3.4); Lymphocytes % (auto) 11.2 %; Mean Corpuscular Hemoglobin 26.6 pg (25-34); Mean Corpuscular Hgb Conc 30.7 g/dL (32-36); Mean Corpuscular Volume 86.7 fL (80-100); Monocytes # (auto) 0.66 K/uL (0.11-0.59); Monocytes % (auto) 9.4 %; Neutrophils # (auto) 5.16 K/uL (1.4-6.5); Neutrophils % (auto) 73.4 %; Nucleated RBC # (auto) 0.55 K/uL (0-0); Nucleated RBC % (auto) 7.9 %; Platelet Count 28 K/uL (130-400); Platelet Estimate SIGNIFIC DECREASED (Normal); RDW Standard Deviation 53.7 fL (36.4-46.3); Red Blood Count 2.93 M/uL (4.2-5.4); Tear Drop Cells 1+; White Blood Count 7.03 K/uL (4.8-10.8)
[2019-04-05 06:35] LABS: Thyroid Stimulating Hormone 3.27 uIu/ml (0.300-4.500)
[2019-04-05] MEDS: ACETYLCYSTEINE 10% INHAL SOLN 4 ML **DISPENSED BY RESP. INH SCH ×2 (07:02→19:31)
[2019-04-05] MEDS: LEVALBUTEROL HCL 0.63 MG/3 ML NEB NEB PRN ×2 (07:02→19:31)
--- NOTE | 2019-04-05 07:57 | XRay Report ---
XR chest 1V portable CLINICAL HISTORY: f/u COMPARISON STUDY: Chest April 04, 2019. FINDINGS: Multiple old bilateral rib fractures are noted. Low lung volumes are noted. There is no ch[place] dence for pulmonary edema. No pneumothorax or pleural effusion is noted. Cardiomediastinal silhouette is stable. Increased density of multiple skeletal structures is due to known skeletal metastases. Mi ld bibasilar opacities are present. IMPRESSION: 1. Right basilar opacity may reflect atelectasis or pneumonia. Left basilar opacity favors atelectasi s. 2. Redemonstration of skeletal metastases. 3. Low lung volumes. ACT 112: Negative or not required by law. Electronically signed by: Raul Rivera M.D. 04/05/2019 7:55 AM
[2019-04-05] MEDS ORDERED: SODIUM CHLORIDE 0.9% 250 ML IV PRN (08:31)
[2019-04-05] MEDS: ACETAMINOPHEN 325 MG TAB PO PRN (10:13)
[2019-04-05] MEDS: AMLODIPINE BESYLATE 5 MG TAB PO SCH (10:14)
[2019-04-05] MEDS: RIFAXIMIN 550 MG TABLET PO SCH ×2 (10:14→22:35)
[2019-04-05] MEDS: OXYCODONE HCL SOLN 5 MG/5 ML UDC NG PRN ×2 (10:14→15:54)
[2019-04-05] MEDS: LANSOPRAZOLE 30 MG SOLTAB NG SCH ×2 (10:14→22:35)
[2019-04-05] MEDS: METOPROLOL SUCC 50MG EXT REL TAB PO SCH ×2 (10:14→15:54)
[2019-04-05] MEDS: FAMOTIDINE 20 MG TAB PO SCH (10:14)
[2019-04-05] MEDS: INSULIN GLARGINE SOLOSTAR 100 UNITS/ML 3 ML PEN SC SCH ×2 (10:15→22:38)
[2019-04-05] MEDS: INSULIN ASPART 100 UNITS/ML 3 ML PEN SC SCH ×4 (10:17→22:37)
[2019-04-05] MEDS ORDERED: INSULIN GLARGINE SOLOSTAR 100 UNITS/ML 3 ML PEN SC ONE (13:00)
--- NOTE | 2019-04-05 13:20 | Pharmacy Report ---
Pharmacy Glycemic Short Note 2 - Date of Service April 05, 2019 - Glycemic Short BSG Results (Last 24 hours): 04/04/19 04/04/19 04/04/19 16:13 20:15 20:42 Glucose 163 H POC Glucose 170 H 200 H 04/05/19 04/05/19 04/05/19 05:23 07:10 11:50 Glucose 151 H POC Glucose 165 H 270 H OUTPATIENT ANTIDIABETIC REGIMEN: * Lantus 0-36 units/day * NovoLog per SSI ASSESSMENT: * 63yo T2DM female with unknown degree of outpatient control - A1c is not reliable secondary to severe anemia and multiple blood transfusions * Pt has been receiving an average of 60-70 units of insulin per day with near adequate control * 40-45 units of basal * 20-30 units of bolus * Pt only received 10 units of Lantus this morning - MAR had two different set of instructions listed. Pt should have received 25 units. Will give an additional 15 units with lunch and then continue 15-20 units SQ BID based on BSG * No changes needed to CF/CR - just tightened this morning. PLAN FOR INPATIENT GLYCEMIC CONTROL: * Hold outpatient oral diabetes medications * Basal insulin * Lantus 15-20 units SQ BID * 15 units for BSG < 140 * 20 units for BSG 140 or above * Bolus insulin * NovoLog per scale ACHS or Q6hrs while NPO * Goal Range: Low 120 mg/dL - High 160 mg/dL * Correction Factor: 18 mg/dL/unit * Nutritional / Prandial insulin per carb ratio of 1 unit per 6 grams CHO consumed
--- NOTE | 2019-04-05 13:53 | Hospitalist Progress Note ---
Date of Service April 05, 2019 Assessment & Plan (1) Epistaxis: (1) Epistaxis: (1) Respiratory failure requiring intubation: (2) Acute on chronic respiratory failure with hypoxia and hypercapnia: (3) Epistaxis: (4) Severe anemia: (5) Thrombocythemia: per Dr. Sena's notes: This is a 63-year-old female who has significant past medical history of metastatic breast cancer to bone, T2 DM, HLD, obesity hypoventilation syndrome, right heart failure, chronic ITP, history of DVT anticoagulated on Eliquis, rheumatoid arthritis, depression who presents to ED at the recommendation of Dr. Light hematology oncology secondary to abnormal labs and epistaxis. In ED a nasal packing was placed trans-examic acid and bleeding has ceased. She did have a posterior pharynx blood clot that was removed by ENT. RN reported another clot today-Rec notifying ENT In ED patient remained hemodynamically stable. Her H&H was 5.6 and 18.7 with platelet count of 15 BUN/creatinine 41 and 1.15, glucose 184, alk phos 121, albumin 2.4, corrected calcium 11.2, mag 1.7 She was transfused 2 units PRBC. On 03/30 Fr Viv-ENT removed the packing, Fibrillar was placed into the right nasal cavity along the septum. This material is absorbable and will come out on its own or be absorbed over time. Ff up approximately 2 weeks after discharge. Held Eliquis, Needed 2 units of Platelets 03/29, IV Unasyn stopped on 03/31 -- discussed with Map Mounter/Oncologist Dr. Light- recommend to resume anticoagulation given history of BL DVT last year and cancer discussed with ENT Dr. Coles- ok to start Lovenox 40mg SC -- no recurrence of epistaxis since starting Lovenox 04/01/19 Plt 28k -- continue to monitor Anemia -- Hg 7.8 -- 1 unit PRBC ordered goal > 8 New-onset atrial fibrillation -- converted to SR off Diltiazem drip continue metoprolol succinate 50 mg p.o. twice a day -- K 4.5 -- non sustained V tach overnight -- continue to monitor full anticoagulation contraindicated Cardiology consult appreciated Encephalopathy, secondary to Elevated Ammonia, likely from Liver Mets -- NH4 increased Rifaximin added to Lactulose -- Nh4 55 but mental status improved -- ABG: no respiratory acidosis, on Bipap -- improving GI consulted patient adamantly declines lactulose, will d/c for now and observe while on Rifaximin 0 (6) CKD (chronic kidney disease), stage III: Stable (7) Metastatic breast cancer: As per Dr. Sena's notes: Metastatic breast cancer to bone, lung Follows Dr. Light Receiving Xgeva and Faslodex -treatments held given thrombocytopenia oxycodone for metastatic pain - verified in pdmp (8) Right-sided heart failure: Chronic right sided heart failure Echo 09/04/2018 revealed normal LVEF, grade 1 diastolic dysfunction, right ventricular cavity dilated with diffuse right ventricular hypokinesis Monitor volume status closely given transfusion Patient prescribed O2 2 L at home --Lasix held secondary to alkalosis transitioned to Acetazolamide twice a day , received x 3 days, now discontinued as patient appears euvolemic continue to monitor (9) Hyperammonemia: management noted above (10) TYE (obstructive sleep apnea): per Pulmonary SVC: Patient will need a backup rate for her CPAP/BiPAP at home given that she takes opioids for her pain. Patient has nasal pillow CPAP at home. For the time being recommend full-face CPAP given that the patient had epistaxis. Use humidified oxygen. (11) DM type 2 (diabetes mellitus, type 2): 01/07/19 A1c 9.2 Lantus/NovoLog per protocol Repeat A1c 5.8 -- Pharmacy consulted (12) History of DVT (deep vein thrombosis): History of DVT and also with hypercoagulable state given metastatic carcinoma Hold Eliquis in setting of severe anemia and thrombocytopenia -- discussed with Oncologist and ENT- recommend Lovenox 40mg SC daily (13) Rheumatoid arthritis: Patient takes oxycodone 5 mg every 4 hours Verified with PDMP -- decreased to q8h for now (14) DVT prophylaxis: SCD/TEDS Contraindicated in setting of severe anemia, thrombocytopenia Hold Eliquis -- Lovenox 40mg SC daily Disposition: pending evaluation and management of altered mental status, elevated ammonia, A fib, monitoring of epistaxis and thrombocytopenia while on lovenox: in progress will need portable home on O2, ENT in office after 2 weeks after DC with Dr Nam Subjective Follow-up for epistaxis, hypoxia, A. fib Detailed episode of nonsustained V. tach yesterday, 10 seconds, asymptomatic, patient was asleep Seen sleeping in bed, BiPAP in place Not in respiratory distress Patient requested RN to let her sleep this morning No other signs or symptoms noted Review of Systems Review of Systems: All systems reviewed & are unremarkable except as noted in HPI & below Physical Exam Physical Exam: General- sleeping, not in distress, no accessory muscle use Eyes- anicteric Neck- no JVD Lungs- clear breath sounds bilaterally Heart- normal rate, regular rhythm; no murmurs Abdomen- normal bowel sounds, nondistended, soft, nontender Extremities- no pretibial edema, no calf tenderness Neuro-asleep Skin- warm & dry Results & Data Vital Signs (Past 12 Hours) Vital Signs Temp Pulse Pulse Resp BP BP Pulse Ox 04/05/19 13:25 37.0 C 79 22 111/63 89 L 04/05/19 12:29 37.1 C 82 22 111/70 88 L 04/05/19 11:48 37.0 C 81 20 105/65 88 L 04/05/19 11:18 37.0 C 70 22 106/61 90 04/05/19 11:03 71 24 95/55 L 89 L 04/05/19 10:42 36.9 C 78 22 96/60 L 92 04/05/19 10:00 82 04/05/19 07:06 81 25 H 97 04/05/19 07:05 81 25 H 97 04/05/19 07:00 36.8 C 80 28 H 124/76 98 04/05/19 03:25 78 20 99 04/05/19 03:14 36.8 C 84 24 122/78 97 Laboratory Results Laboratory Results - last 24 hr 04/04/19 04/04/19 04/04/19 08:03 16:13 17:03 WBC 8.09 RBC 3.06 L Hgb 8.1 L Hct 26.6 L MCV 86.9 MCH 26.5 MCHC 30.5 L RDW Std Deviation 54.2 H RDW Coeff of Flori 17.3 H Plt Count 39 L D Immature Gran % (Auto) Neut % (Auto) Lymph % (Auto) [place] % (Auto) Eos % (Auto) Baso % (Auto) Immature Gran # (Auto) Neut # (Auto) Lymph # (Auto) [place] # (Auto) Eos # (Auto) Baso # (Auto) Absolute Nucleated RBC 0.60 H Nucleated RBC % (auto) 7.4 Neutrophils % (Manual) 77.0 Lymphocytes % (Manual) 15.9 Monocytes % (Manual) 3.5 Eosinophils % (Manual) 0.9 Basophils % (Manual) 0.9 Myelocytes % (Man) 1.8 Neutrophils # (Manual) 6.23 Total Absolute Neuts 6.23 Lymphocytes # (Manual) 1.29 Total Abs Lymphocytes 1.29 Monocytes # (Manual) 0.28 Eosinophils # (Manual) 0.07 Basophils # (Manual) 0.07 Myelocytes # (Manual) 0.15 H Platelet Estimate Decreased L Polychromasia 1+ Tear Drop Cells Sodium Potassium Chloride Carbon Dioxide Anion Gap BUN Creatinine Est Cr Clr Drug Dosing Est GFR ( Amer) Est GFR (Non-Af Amer) BUN/Creatinine Ratio Glucose POC Glucose 170 H Calcium Magnesium TSH Blood Type B Positive Antibody Screen NEGATIVE Crossmatch See Detail 04/04/19 04/04/19 04/05/19 20:15 20:42 05:23 WBC 7.03 RBC 2.93 L Hgb 7.8 L Hct 25.4 L MCV 86.7 MCH 26.6 MCHC 30.7 L RDW Std Deviation 53.7 H RDW Coeff of Flori 17.0 H Plt Count 28 L* Immature Gran % (Auto) 3.0 Neut % (Auto) 73.4 Lymph % (Auto) 11.2 [place] % (Auto) 9.4 Eos % (Auto) 2.1 Baso % (Auto) 0.9 Immature Gran # (Auto) 0.21 H Neut # (Auto) 5.16 Lymph # (Auto) 0.79 L [place] # (Auto) 0.66 H Eos # (Auto) 0.15 Baso # (Auto) 0.06 Absolute Nucleated RBC 0.55 H Nucleated RBC % (auto) 7.9 Neutrophils % (Manual) Lymphocytes % (Manual) Monocytes % (Manual) Eosinophils % (Manual) Basophils % (Manual) Myelocytes % (Man) Neutrophils # (Manual) Total Absolute Neuts Lymphocytes # (Manual) Total Abs Lymphocytes Monocytes # (Manual) Eosinophils # (Manual) Basophils # (Manual) Myelocytes # (Manual) Platelet Estimate SIGNIFIC DECREASED Polychromasia Tear Drop Cells 1+ Sodium 141 Potassium 4.0 Chloride 106 Carbon Dioxide 29 Anion Gap 6.0 BUN 50 H Creatinine 1.57 H D Est Cr Clr Drug Dosing 45.3 Est GFR ( Amer) 40.2 Est GFR (Non-Af Amer) 34.7 BUN/Creatinine Ratio 32.0 H Glucose 163 H POC Glucose 200 H Calcium 9.9 Magnesium 2.2 TSH Blood Type Antibody Screen Crossmatch 04/05/19 04/05/19 04/05/19 05:23 07:10 11:50 WBC RBC Hgb Hct MCV MCH MCHC RDW Std Deviation RDW Coeff of Flori Plt Count Immature Gran % (Auto) Neut % (Auto) Lymph % (Auto) [place] % (Auto) Eos % (Auto) Baso % (Auto) Immature Gran # (Auto) Neut # (Auto) Lymph # (Auto) [place] # (Auto) Eos # (Auto) Baso # (Auto) Absolute Nucleated RBC Nucleated RBC % (auto) Neutrophils % (Manual) Lymphocytes % (Manual) Monocytes % (Manual) Eosinophils % (Manual) Basophils % (Manual) Myelocytes % (Man) Neutrophils # (Manual) Total Absolute Neuts Lymphocytes # (Manual) Total Abs Lymphocytes Monocytes # (Manual) Eosinophils # (Manual) Basophils # (Manual) Myelocytes # (Manual) Platelet Estimate Polychromasia Tear Drop Cells Sodium 139 Potassium 3.9 Chloride 105 Carbon Dioxide 29 Anion Gap 5.0 BUN 53 H Creatinine 1.59 H Est Cr Clr Drug Dosing 44.8 Est GFR ( Amer) 39.6 Est GFR (Non-Af Amer) 34.2 BUN/Creatinine Ratio 33.6 H Glucose 151 H POC Glucose 165 H 270 H Calcium 10.2 H Magnesium TSH 3.270 Blood Type Antibody Screen Crossmatch
[2019-04-05] MEDS: ENOXAPARIN INJ 40 MG/0.4 ML SYR SQ SCH (22:35)
[2019-04-05] MEDS: LIDOCAINE 5% 1 PATCH TD SCH (22:36)
[2019-04-06] MEDS: OXYCODONE HCL SOLN 5 MG/5 ML UDC NG PRN ×2 (05:28→16:54)
[2019-04-06] MEDS: LEVALBUTEROL HCL 0.63 MG/3 ML NEB NEB PRN ×2 (06:57→19:35)
[2019-04-06] MEDS: ACETYLCYSTEINE 10% INHAL SOLN 4 ML **DISPENSED BY RESP. INH SCH ×2 (06:58→19:36)
--- NOTE | 2019-04-06 07:06 | XRay Report ---
XR chest 1V portable HISTORY: 63 years-old Female f/u follow-up study in a patient with right lung base opacities COMPARISON: Chest radiograph 04/05/2019 TECHNIQUE: Portable AP view of the chest FINDINGS: Cardiomediastinal and hilar silhouettes are unchanged. Lungs are mildly hypoinflated. Unchanged moder ate hemidiaphragmatic elevation. There is slightly improved aeration of the right lung base with mini mal persistent bibasilar densities. No pneumothorax, pleural effusion or overt pulmonary edema. Multi focal skeletal metastasis redemonstrated with subacute to chronic appearing bilateral rib fractures. Advanced degenerative changes of the shoulders. IMPRESSION: 1. Hypoinflation with unchanged right hemidiaphragmatic elevation. 2. Slightly improved aeration of the right lung base with persistent bibasilar densities suggestive o f probable atelectasis. Pneumonia considered less likely. 3. Multifocal skeletal metastasis redemonstrated. ACT 112: Negative or not required by law. The above report was generated using voice recognition software. It may contain grammatical, syntax o r spelling errors. Electronically signed by: Vin Titus M.D. 04/06/2019 7:05 AM
[2019-04-06] MEDS: INSULIN GLARGINE SOLOSTAR 100 UNITS/ML 3 ML PEN SC SCH ×2 (07:47→20:35)
[2019-04-06] MEDS: INSULIN ASPART 100 UNITS/ML 3 ML PEN SC SCH ×4 (07:49→20:36)
[2019-04-06] MEDS: LANSOPRAZOLE 30 MG SOLTAB NG SCH ×2 (07:50→20:34)
[2019-04-06] MEDS: METOPROLOL SUCC 50MG EXT REL TAB PO SCH ×2 (07:50→16:52)
[2019-04-06] MEDS: AMLODIPINE BESYLATE 5 MG TAB PO SCH (07:50)
[2019-04-06] MEDS: RIFAXIMIN 550 MG TABLET PO SCH ×2 (07:51→20:34)
[2019-04-06] MEDS: FAMOTIDINE 20 MG TAB PO SCH (07:51)
[2019-04-06 07:57] LABS: Hematocrit (blood only) 29.5 % (37-47); Hemoglobin 9.2 g/dL (12.0-16.0); Mean Corpuscular Hemoglobin 27.2 pg (25-34); Mean Corpuscular Hgb Conc 31.2 g/dL (32-36); Mean Corpuscular Volume 87.3 fL (80-100); RDW Coefficient of Variation 17.2 % (11.5-14.5); RDW Standard Deviation 54.5 fL (36.4-46.3); Red Blood Count 3.38 M/uL (4.2-5.4); White Blood Count 6.51 K/uL (4.8-10.8)
[2019-04-06 07:58] LABS: Platelet Count 26 K/uL (130-400)
[2019-04-06 08:03] LABS: Basophils # (auto) 0.04 K/uL (0-0.2); Basophils % (auto) 0.6 %; Eosinophils # (auto) 0.14 K/uL (0-0.5); Eosinophils % (auto) 2.2 %; Immature Granulocytes # (auto) 0.24 K/uL (0.00-0.02); Immature Granulocytes % (auto) 3.7 %; Lymphocytes # (auto) 0.62 K/uL (1.2-3.4); Lymphocytes % (auto) 9.5 %; Monocytes # (auto) 0.54 K/uL (0.11-0.59); Monocytes % (auto) 8.3 %; Neutrophils # (auto) 4.93 K/uL (1.4-6.5); Neutrophils % (auto) 75.7 %; Nucleated RBC # (auto) 0.54 K/uL (0-0); Nucleated RBC % (auto) 8.2 %; RBC Morphology Unremarkable
[2019-04-06 08:09] LABS: BUN Creatinine Ratio 41.2 (10-20); Calcium 11.1 mg/dl (8.5-10.1); Creatinine Clr Calc Pharmacy 44.4 ml/min; Est GFR (African American) 39.9; Est GFR (Non-African American) 34.5
--- NOTE | 2019-04-06 10:18 | Palliative Care Consultation ---
Date of Consultation April 06, 2019 Assessment & Plan (1) Goals of care, counseling/discussion: -63 year old female patient with PMH metastatic breast cancer who presented 13 days ago from her oncologist's office with thrombocytopenia epistaxis. In the ED, nose had to be packed by ENT surgery. Patient wears bipap at home at night due to obesity hypoventilatory syndrome and obstructive sleep apnea. Due to the nasal packing, patient was unable to wear the BiPap and patient unfortunately went into acute hypercarbic respiratory failure with a ph of 7 and CO2 of >100. Patient was intubated in ICU and was successfully extubated soon after. The nasal packing was removed on 03/30 by ENT. Then unfortunately on 03/31, patient went into afib with RVR. Cardiology consulted and patient is now rate controlled with meds. Anticoagulation of course is contraindicated. She also has some right heart failure and was aggressively diuresed. Cardiology believes this to have been a culprit with the afib, patient improved with some rehydration. Last cancer treatment was 3-4 weeks ago. Patient is severely deconditioned and weak. She has liver and bone mets as well. Palliative care consulted to discuss goals of care. -Met with patient in room 216 this morning. No family at bedside. Patient sitti ng in wheelchair-- alert and oriented x4. -Patient states that she knows she has not been doing well. She does not know what the plan is for any further cancer treatment. She states it is currently on hold due to her blood counts and weakness. -Patient states that her continue to push patient to continue to fight. She stated, "He wants me to fight till my very last breath, and I told him I just can't do it forever." Discussed code status-- patient to remain FULL CODE at this time. -Patient is established with Dr. Santos as an outpatient and plans to continue doing so. Patient is interested in doing a living will when her is present in the room this afternoon-- placed ordered for patient aircraft sales representative to see her. -Patient is severely deconditioned and weak. She is adamantly declining going to rehab, but she certainly needs it. She is unable to ambulate by herself and it is just her and her at home. NO children. PT/OT and case management are following. -We will continue to follow during hospitalization and assist with ongoing conversations about goals of care. (2) Acute on chronic respiratory failure with hypoxia and hypercapnia: (3) Thrombocythemia: (4) Metastatic breast cancer: (5) Atrial fibrillation with rapid ventricular response: Supervising Physician Co-Signing Physician Notes Patient known to me from outpatient palliative clinic-have seen her and her once for cancer related pain. Patient had been on long acting opioids in the past-these were discontinued due to hypoventilation. Patient is to be on short acting pain medication only. Nursing chart reviewed, patient seen and examined. Collaborated with REJI Rahman PE: Patient awake and alert-appears at her prior baseline -states her breathing feels much better. Patient is nonambulatory HEENT: Patient sitting upright in bed, appears comfortable, baseline shortness of breath with conversation Respiratory: Diminished breath sounds bilaterally CV: Regular rate Abdomen: Nontender, morbidly obese Neuro: Alert and oriented Agree with above note, assessment and plan as per REJI Rahman. Will continue to follow and assist with medical decision making as needed. Patient may follow-up in palliative clinic as an outpatient after discharge. History of Present Illness Reason for Consultation: Goals of care Requesting Physician: Dr. Byrd Attending Physician: Randy Grace MD History of Present Illness This 63 year old female patient with PMH metastatic breast cancer who presented 13 days ago from her oncologist's office with thrombocytopenia epistaxis. In the ED, nose had to be packed by ENT surgery. Patient wears bipap at home at night due to obesity hypoventilatory syndrome and obstructive sleep apnea. Due to the nasal packing, patient was unable to wear the BiPap and patient unfortunately went into acute hypercarbic respiratory failure with a ph of 7 and CO2 of >100. Patient was intubated in ICU and was successfully extubated soon after. The nasal packing was removed on 03/30 by ENT. Then unfortunately on 03/31, patient went into afib with RVR. Cardiology consulted and patient is now rate controlled with meds. Anticoagulation of course is contraindicated. She also has some right heart failure and was aggressively diuresed. Cardiology believes this to have been a culprit with the afib, patient improved with some rehydration. Last cancer treatment was 3-4 weeks ago. Patient is severely deconditioned and weak. She has liver and bone mets as well. Palliative care consulted to discuss goals of care. Thank you kindly for this consult. Palliative care team will follow as needed. Allergies Allergy/AdvReac Type Severity Reaction Status Date / Time gabapentin AdvReac Hallucinati Verified 03/24/19 14:13 ng Home Medications Home Medications Medication Instructions Recorded Confirmed Type fexofenadine [Rocio Allergy] 180 mg PO QAM 03/05/18 03/24/19 History Lantus Solostar U-100 Insulin See Rx Instructions .ROUTE 05/16/18 03/24/19 Rx .COMPLEX #15 ml metoprolol succinate 25 mg PO BID #60 ea 05/16/18 03/24/19 Rx Eliquis 5 mg PO BID 01/06/19 03/24/19 History Xgeva 120 mg SUBCUT MONTHLY 01/06/19 03/24/19 History fulvestrant [Faslodex] 250 mg IM Q14D 01/06/19 03/24/19 History hydroxyzine HCl 25 mg PO BID 01/06/19 03/24/19 History omeprazole 20 mg PO BID 01/06/19 03/24/19 History torsemide 20 mg PO DAILY PRN 01/06/19 03/24/19 History insulin aspart U-100 [Novolog 0 unit SUBCUT UD 03/24/19 03/24/19 History Flexpen U-100 Insulin] oxycodone 5 mg PO Q4 03/24/19 03/24/19 History Patient History Medical History (Updated 04/06/19 @ 13:37 by REJI Jean) ATN (acute tubular necrosis) (Resolved) Breast cancer metastasized to bone (Inactive) Chronic kidney disease (Inactive) CKD (chronic kidney disease), stage III (Chronic) DM type 2 (diabetes mellitus, type 2) (Chronic) Goals of care, counseling/discussion History of DVT (deep vein thrombosis) (Chronic) Hyperlipidemia (Chronic) Hypertension (Chronic) Irritable bowel syndrome (Chronic) Metastatic breast cancer (Chronic) Obesity hypoventilation syndrome (Chronic) TYE (obstructive sleep apnea) (Chronic) Osteoarthritis (Chronic) Rheumatoid arthritis (Inactive) Rheumatoid arthritis (Chronic) Right-sided heart failure (Chronic) Thrombocytopenia (Chronic) Surgical History History of hernia repair (Chronic) Family History Mother Stroke Diabetes Father Diabetes Social History Preferred Language: Kiswahili Communication Ability: Effective Visual Impairment: No Limitations Cosmetology Educator Required: No Beliefs That Will Affect Care: Congregation Congregation Beliefs: Episcopalian marital status: Current Living Situation: Spouse Other Information That Helps Us Care for You: No Feels Safe at Home: Yes Safety Concerns: Feels Safe At This Time Smoking Status: Never smoker Second Hand Exposure: No ; Hx Alcohol Use: No Hx Substance Use: No Results & Data Vital Signs (Past 12 Hours) Vital Signs Temp Pulse Pulse Resp BP Pulse Ox 04/06/19 07:10 37.1 C 76 22 128/69 100 04/06/19 06:58 80 17 93 04/06/19 03:40 89 23 96 04/06/19 00:25 91 H 30 H 95 04/06/19 00:00 80 04/05/19 23:44 37.3 C 81 24 132/69 91 Time Spent Midlevel 70 minutes with >50% of the time spent at bedside with patient discussing condition and GOC.
--- NOTE | 2019-04-06 11:56 | Hospitalist Progress Note ---
Date of Service April 06, 2019 Assessment & Plan (1) Epistaxis: (1) Epistaxis: (1) Respiratory failure requiring intubation: (2) Acute on chronic respiratory failure with hypoxia and hypercapnia: (3) Epistaxis: (4) Severe anemia: (5) Thrombocythemia: per Dr. Sena's notes: This is a 63-year-old female who has significant past medical history of metastatic breast cancer to bone, T2 DM, HLD, obesity hypoventilation syndrome, right heart failure, chronic ITP, history of DVT anticoagulated on Eliquis, rheumatoid arthritis, depression who presents to ED at the recommendation of Dr. Light hematology oncology secondary to abnormal labs and epistaxis. In ED a nasal packing was placed trans-examic acid and bleeding has ceased. She did have a posterior pharynx blood clot that was removed by ENT. RN reported another clot today-Rec notifying ENT In ED patient remained hemodynamically stable. Her H&H was 5.6 and 18.7 with platelet count of 15 BUN/creatinine 41 and 1.15, glucose 184, alk phos 121, albumin 2.4, corrected calcium 11.2, mag 1.7 She was transfused 2 units PRBC. On 03/30 Fr Viv-ENT removed the packing, Fibrillar was placed into the right nasal cavity along the septum. This material is absorbable and will come out on its own or be absorbed over time. Ff up approximately 2 weeks after discharge. Held Eliquis, Needed 2 units of Platelets 03/29, IV Unasyn stopped on 03/31 -- discussed with Wind Up Worker/Oncologist Dr. Light- recommend to resume anticoagulation given history of BL DVT last year and cancer discussed with ENT Dr. Coles- ok to start Lovenox 40mg SC -- no recurrence of epistaxis since starting Lovenox 04/01/19 Plt 26k -- continue to monitor Anemia -- Hg 9.2 --2unit PRBC ordered over the weekend goal > 8 New-onset atrial fibrillation -- converted to SR off Diltiazem drip -- K 4.0 -- non sustained V tach saturday night no recurrence so far -- echo ordered continue metoprolol succinate 50 mg p.o. twice a day full anticoagulation contraindicated Cardiology consult appreciated Encephalopathy, secondary to Elevated Ammonia, likely from Liver Mets -- NH4 increased Rifaximin added to Lactulose -- NH4 55 but mental status improved -- ABG: no respiratory acidosis, on Bipap -- improving GI consulted patient adamantly declines lactulose due to profuse diarrhea experienced, difficulty with back pain when being cleaned/turning after BM Lactulose discontinued, on Rifaximin only Patient's mental status improved since yesterday (6) CKD (chronic kidney disease), stage III: Stable (7) Metastatic breast cancer: As per Dr. Sena's notes: Metastatic breast cancer to bone, lung Follows Dr. Light Receiving Xgeva and Faslodex -treatments held given thrombocytopenia oxycodone for metastatic pain - verified in pdmp --Palliative care consulted (8) Right-sided heart failure: Chronic right sided heart failure Echo 09/04/2018 revealed normal LVEF, grade 1 diastolic dysfunction, right ventricular cavity dilated with diffuse right ventricular hypokinesis Monitor volume status closely given transfusion Patient prescribed O2 2 L at home --Lasix held secondary to alkalosis transitioned to Acetazolamide twice a day , received x 3 days, now discontinued as patient appears euvolemic Euvolemic today, continue to monitor (9) Hyperammonemia: management noted above (10) TYE (obstructive sleep apnea): per Pulmonary SVC: Patient will need a backup rate for her CPAP/BiPAP at home given that she takes opioids for her pain. Patient has nasal pillow CPAP at home. For the time being recommend full-face CPAP given that the patient had epistaxis. Use humidified oxygen. (11) DM type 2 (diabetes mellitus, type 2): 01/07/19 A1c 9.2 Lantus/NovoLog per protocol Repeat A1c 5.8 -- Pharmacy consulted (12) History of DVT (deep vein thrombosis): History of DVT and also with hypercoagulable state given metastatic carcinoma Hold Eliquis in setting of severe anemia and thrombocytopenia -- discussed with Oncologist and ENT- recommend Lovenox 40mg SC daily (13) Rheumatoid arthritis: Patient takes oxycodone 5 mg every 4 hours Verified with PDMP -- decreased to q6h for now (14) DVT prophylaxis: SCD/TEDS Hold Eliquis, Contraindicated in setting of severe anemia, thrombocytopenia -- Lovenox 40mg SC daily Disposition: pending evaluation and management of altered mental status, elevated ammonia, A fib, monitoring of epistaxis and thrombocytopenia while on lovenox: in progress will need portable home on O2, ENT in office after 2 weeks after DC with Dr Nam Subjective Follow-up for epistaxis, A. fib, hypoxia Seen sitting up in bed, awake, alert, in good spirits States she feels improved today compared to yesterday Able to participate with physical therapy today Breathing is improving No notes of confusion overnight No note of epistaxis or bleeding Patient still declining rehab or senior living facility upon discharge despite discussion Review of Systems Review of Systems: All systems reviewed & are unremarkable except as noted in HPI & below Physical Exam Physical Exam: General- oriented x 3, not in distress, speaks in sentences with no effort or accessory muscle use Eyes- anicteric Neck- no JVD Lungs- clear breath sounds bilaterally,no crackles or wheezing Heart- normal rate, regular rhythm; no murmurs Abdomen- normal bowel sounds, nondistended, soft, nontender Extremities-trace pretibial edema, no calf tenderness Neuro- alert, oriented x 3; no gross focal neurologic deficits Skin- warm & dry Results & Data Vital Signs (Past 12 Hours) Vital Signs Temp Pulse Pulse Pulse Resp BP Pulse Ox 04/06/19 11:30 36.9 C 78 20 111/70 94 04/06/19 07:10 37.1 C 76 22 128/69 100 04/06/19 06:58 80 17 93 04/06/19 03:40 89 23 96 04/06/19 00:25 91 H 30 H 95 04/06/19 00:00 80
[2019-04-06] MEDS: LIDOCAINE 5% 1 PATCH TD SCH (20:34)
[2019-04-06] MEDS: ENOXAPARIN INJ 40 MG/0.4 ML SYR SQ SCH (20:34)
[2019-04-07] MEDS: OXYCODONE HCL SOLN 5 MG/5 ML UDC NG PRN ×2 (05:31→19:19)
[2019-04-07 06:11] LABS: Mean Corpuscular Hgb Conc 31.7 g/dL (32-36); Nucleated RBC # (auto) 0.46 K/uL (0-0); Nucleated RBC % (auto) 7.3 %
[2019-04-07 06:21] LABS: Hematocrit (blood only) 26.8 % (37-47); Hemoglobin 8.5 g/dL (12.0-16.0); Mean Corpuscular Hemoglobin 26.9 pg (25-34); Mean Corpuscular Volume 84.8 fL (80-100); RDW Coefficient of Variation 17.3 % (11.5-14.5); RDW Standard Deviation 53.6 fL (36.4-46.3); Red Blood Count 3.16 M/uL (4.2-5.4); White Blood Count 6.31 K/uL (4.8-10.8)
[2019-04-07 06:47] LABS: BUN Creatinine Ratio 52.9 (10-20); Calcium 11.1 mg/dl (8.5-10.1); Est GFR (African American) 47.5; Est GFR (Non-African American) 40.9; Platelet Count 33 K/uL (130-400); Potassium 3.8 mmol/L (3.5-5.1)
[2019-04-07 06:48] LABS: Basophils # (auto) 0.04 K/uL (0-0.2); Basophils % (auto) 0.6 %; Eosinophils # (auto) 0.17 K/uL (0-0.5); Eosinophils % (auto) 2.7 %; Immature Granulocytes # (auto) 0.31 K/uL (0.00-0.02); Immature Granulocytes % (auto) 4.9 %; Lymphocytes # (auto) 0.75 K/uL (1.2-3.4); Lymphocytes % (auto) 11.9 %; Monocytes # (auto) 0.38 K/uL (0.11-0.59); Neutrophils # (auto) 4.66 K/uL (1.4-6.5); Neutrophils % (auto) 73.9 %; Platelet Estimate SIGNIFIC DECREASED (Normal); RBC Morphology Unremarkable
[2019-04-07] MEDS: LEVALBUTEROL HCL 0.63 MG/3 ML NEB NEB PRN (07:01)
[2019-04-07] MEDS: ACETYLCYSTEINE 10% INHAL SOLN 4 ML **DISPENSED BY RESP. INH SCH (07:01)
--- NOTE | 2019-04-07 07:05 | XRay Report ---
XR chest 1V portable HISTORY: 63 years-old Female f/u follow-up study in a patient with right lung base opacities COMPARISON: Chest radiograph 04/06/2019 TECHNIQUE: Portable AP view of the chest FINDINGS: Cardiomediastinal and hilar silhouettes are unchanged. Lungs are mildly hypoinflated. Unchanged moder ate hemidiaphragmatic elevation. There are mild persistent bibasilar opacities noted. No pneumothorax , pleural effusion or overt pulmonary edema. Multifocal skeletal metastasis redemonstrated with subac rosaura to chronic appearing bilateral rib fractures. Advanced degenerative changes of the shoulders. IMPRESSION: 1. Hypoinflation with right hemidiaphragmatic elevation. 2. Mild bibasilar opacities persist, likely reflective of atelectasis with pneumonia or aspiration pn eumonitis considered less likely. 3. Multifocal skeletal metastasis. ACT 112: Negative or not required by law. The above report was generated using voice recognition software. It may contain grammatical, syntax o r spelling errors. Electronically signed by: Vin Titus M.D. 04/07/2019 7:04 AM
[2019-04-07] MEDS: INSULIN ASPART 100 UNITS/ML 3 ML PEN SC SCH ×3 (07:50→18:02)
[2019-04-07] MEDS: INSULIN GLARGINE SOLOSTAR 100 UNITS/ML 3 ML PEN SC SCH (07:51)
[2019-04-07] MEDS: LANSOPRAZOLE 30 MG SOLTAB NG SCH (07:51)
[2019-04-07] MEDS: RIFAXIMIN 550 MG TABLET PO SCH (07:51)
[2019-04-07] MEDS: METOPROLOL SUCC 50MG EXT REL TAB PO SCH ×2 (07:52→18:00)
[2019-04-07] MEDS: AMLODIPINE BESYLATE 5 MG TAB PO SCH (07:52)
[2019-04-07] MEDS: FAMOTIDINE 20 MG TAB PO SCH (07:52)
--- NOTE | 2019-04-07 11:11 | Hospitalist Progress Note ---
Date of Service April 07, 2019 Assessment & Plan (1) Epistaxis: (1) Epistaxis: (1) Respiratory failure requiring intubation: (2) Acute on chronic respiratory failure with hypoxia and hypercapnia: (3) Epistaxis: (4) Severe anemia: (5) Thrombocythemia: per Dr. Sena's notes: This is a 63-year-old female who has significant past medical history of metastatic breast cancer to bone, T2 DM, HLD, obesity hypoventilation syndrome, right heart failure, chronic ITP, history of DVT anticoagulated on Eliquis, rheumatoid arthritis, depression who presents to ED at the recommendation of Dr. Light hematology oncology secondary to abnormal labs and epistaxis. In ED a nasal packing was placed trans-examic acid and bleeding has ceased. She did have a posterior pharynx blood clot that was removed by ENT. RN reported another clot today-Rec notifying ENT In ED patient remained hemodynamically stable. Her H&H was 5.6 and 18.7 with platelet count of 15 BUN/creatinine 41 and 1.15, glucose 184, alk phos 121, albumin 2.4, corrected calcium 11.2, mag 1.7 She was transfused 2 units PRBC. On 03/30 Fr Viv-ENT removed the packing, Fibrillar was placed into the right nasal cavity along the septum. This material is absorbable and will come out on its own or be absorbed over time. Ff up approximately 2 weeks after discharge. Held Eliquis, Needed 2 units of Platelets 03/29, IV Unasyn stopped on 03/31 -- discussed with Vice President Of Human Resources/Oncologist Dr. Light- recommend to resume anticoagulation given history of BL DVT last year and cancer discussed with ENT Dr. Coles- ok to start Lovenox 40mg SC -- no recurrence of epistaxis since starting Lovenox 04/01/19 Plt 33k on discharge day -- continue to monitor closely repeat CBC on ff up with PCP within 1 week Anemia -- Hg 9.2 -- given 5 units PRBC ordered while admitted remained stable around 8-9 while admitted New-onset atrial fibrillation -- converted to SR off Diltiazem drip -- 1 episode of non sustained V tach noted no recurrence so far -- echo ordered continue metoprolol succinate 50 mg p.o. twice a day full anticoagulation contraindicated Cardiology consult appreciated Encephalopathy, secondary to Elevated Ammonia, likely from Liver Mets -- NH4 increased Rifaximin added to Lactulose -- NH4 55 but mental status improved -- ABG: no respiratory acidosis, on Bipap -- improving GI consulted patient adamantly declines lactulose due to profuse diarrhea experienced, difficulty with back pain when being cleaned/turning after BM Lactulose discontinued, on Rifaximin only Patient's mental status improved while on Rifaximin alone pre auth pending, will ff up patient given 2 day supply, will update her once preauth is approved (6) CKD (chronic kidney disease), stage III: Stable (7) Metastatic breast cancer: As per Dr. Sena's notes: Metastatic breast cancer to bone, lung Follows Dr. Light Receiving Xgeva and Faslodex -treatments held given thrombocytopenia oxycodone for metastatic pain - verified in pdmp --Palliative care consulted, patient would like to proceed with medical management ff up with Dr. Light in 1-2 weeks (8) Right-sided heart failure: Chronic right sided heart failure Echo 09/04/2018 revealed normal LVEF, grade 1 diastolic dysfunction, right ventricular cavity dilated with diffuse right ventricular hypokinesis Monitor volume status closely given transfusion Patient prescribed O2 2 L at home --Lasix held secondary to alkalosis transitioned to Acetazolamide twice a day , received x 3 days, now discontinued as patient appears euvolemic Euvolemic today, continue to monitor (9) Hyperammonemia: management noted above (10) TYE (obstructive sleep apnea): per Pulmonary SVC: Patient will need a backup rate for her CPAP/BiPAP at home given that she takes opioids for her pain. Patient has nasal pillow CPAP at home. For the time being recommend full-face CPAP given that the patient had epistaxis. Use humidified oxygen. (11) DM type 2 (diabetes mellitus, type 2): 01/07/19 A1c 9.2 Lantus/NovoLog per protocol Repeat A1c 5.8 -- Pharmacy consulted (12) History of DVT (deep vein thrombosis): History of DVT and also with hypercoagulable state given metastatic carcinoma Hold Eliquis in setting of severe anemia and thrombocytopenia -- discussed with Oncologist and ENT- recommend Lovenox 40mg SC daily (13) Rheumatoid arthritis: Patient takes oxycodone 5 mg every 4 hours Verified with PDMP -- decreased to q6h for now (14) DVT prophylaxis: SCD/TEDS Hold Eliquis, Contraindicated in setting of severe anemia, thrombocytopenia -- Lovenox 40mg SC daily Disposition: d/c home today after extensive discussion with patient and her , they prefer to be discharged home, declines home health services as well explained high risk for falls, injuries , re-admission if going home instead of SNF/Rehab, and without HHS, they are understanding, agreeable and comfortable with plan of care, accepting of risks involved Subjective ff up for epistaxis, hepatic encephalopathy, etc. seen sitting up in bed, comfortable in good spirits, oriented x 3, not in distress states she feels fine overall no acute events overnight denies shortness of breath, chest pain, palpitations, dizziness no bleeding denies other symptoms states she is ready and would like to be discharged today Review of Systems Review of Systems: All systems reviewed & are unremarkable except as noted in HPI & below Physical Exam Physical Exam: General- oriented x 3, not in distress, speaks in sentences with no effort or accessory muscle use Eyes- anicteric Neck- no JVD Lungs- clear breath sounds bilaterally, no wheezing, no crackles bilaterally Heart- normal rate, regular rhythm; no murmurs Abdomen- normal bowel sounds, nondistended, soft, nontender Extremities- no pretibial edema, no calf tenderness Neuro- alert, oriented x 3; no other gross focal neurologic deficits Skin- warm & dry Results & Data Vital Signs (Past 12 Hours) Vital Signs Temp Pulse Pulse Pulse Resp BP Pulse Ox 04/07/19 07:01 77 19 96 04/07/19 06:54 37.1 C 78 24 127/70 96 04/07/19 03:46 88 22 98 04/07/19 03:12 37.2 C 75 26 H 123/71 98 04/06/19 23:52 61 04/06/19 23:17 37.0 C 77 20 136/78 97
--- NOTE | 2019-04-07 13:27 | Pharmacy Report ---
Pharmacy Glycemic Short Note 2 - Date of Service April 07, 2019 - Glycemic Short BSG Results (Last 24 hours): 04/06/19 04/06/19 04/07/19 16:15 20:22 06:01 Glucose 126 H POC Glucose 169 H 243 H 04/07/19 04/07/19 07:00 11:27 Glucose POC Glucose 168 H 147 H OUTPATIENT ANTIDIABETIC REGIMEN: * Lantus 0-36 units/day * NovoLog per SSI ASSESSMENT: 04/07: * Patient received total 73 units of insulin yesterday of which 40 units were basal and 33 units bolus. * Fasting BSG this AM was only slightly above goal. Continued Lantus as before based on scale BID. * Post prandial BSGs were above goal yesterday with HS BSG above 200. Novolog CF was tightened this AM. Lunch BSG looks better. 04/05: * 63yo T2DM female with unknown degree of outpatient control - A1c is not reliable secondary to severe anemia and multiple blood transfusions * Pt has been receiving an average of 60-70 units of insulin per day with near adequate control * 40-45 units of basal * 20-30 units of bolus * Pt only received 10 units of Lantus this morning - MAR had two different set of instructions listed. Pt should have received 25 units. Will give an additional 15 units with lunch and then continue 15-20 units SQ BID based on BSG * No changes needed to CF/CR - just tightened this morning. PLAN FOR INPATIENT GLYCEMIC CONTROL: * Basal insulin: continued * Lantus 15-20 units SQ BID * 15 units for BSG < 140 * 20 units for BSG 140 or above * Bolus insulin: tightened CF * NovoLog per scale ACHS or Q6hrs while NPO * Goal Range: Low 110 mg/dL - High 140 mg/dL * Correction Factor: 15 mg/dL/unit * Nutritional / Prandial insulin per carb ratio of 1 unit per 6 grams CHO consumed
--- NOTE | 2019-04-07 16:44 | Nephrology Consultation ---
Date of Consultation April 07, 2019 Assessment & Plan (1) Hypercalcemia: worse past 24-48 hrs, ? from new protein supplement; did d/w Dr Grace who will look into stopping this; has been intermittent issue for her -will repeat liane labs (25 ohd, PTH, PTHrp) -- likelihood for these to be positive after recent negative tests last month is low but reasonable to check -asymptomatic so far -could consider bisphosphonate and/or calcitonin if stopping supplement does not improve this -agree w/ holding lasix for time being -no other offending meds to promote high Ca Present on Admission?: Yes (2) CKD (chronic kidney disease), stage III: at baseline; monitor bmp prn; avoid nephrotoxins Present on Admission?: Yes History of Present Illness Reason for Consultation: hypercalcemia Requesting Physician: Dr Grace Attending Physician: Randy Grace MD History of Present Illness 63 y/o F whom I'm asked to see for hypercalcemia. PMH includes CKD 3 (follows w/ me in CKD clinic), severe chronic joint pain (combined OA/RA), 06/2018 fall w/ vertebral compression fracture, morbid obesity, obesity hypoventilation syndrome on bipap, R HF, HTN, HL, DM, 11/2017 dx of BRCA w/ mets to bone, liver; BL LE DVT and immune thrombocytopenia, chronic ambulatory dysfunction. She has had hypercalcemia in the past managed as OP under care of Dr Christophe Light. She was admitted here 2 wks ago w/ acute on chronic respiratory failure , epistaxis, worsening anemia and thrombocytopenia. presenting hgb was 5.6. plts 15. Ca 11.2 corrected on presentation; creatinine at baseline in mid to low 1's. ENT did nasal packing on presentation; pt was intubated d/t obtundation, hypercapnea; eliquis was held d/t anemia. she did receive platelet and pRBC tr ansfusions. She had new onset AF w/ RVR starting about a week after admission; controlled w/ BB and by scaling back on diuresis. her calcium has been bouncing around but has run in the low to mid 10s. then yesterday and today bumped to 11.1. her albumin has been running in mid 2's. Her Ca today corrects to 12.4. she started a new / additional protein supplement about 4 days ago provided by hospital (not available to me what this type is). Generally not a lot of high calcium intake otherwise in meds or food/beverages. Did have normal PTH, 25 OH D in February. Allergies Allergy/AdvReac Type Severity Reaction Status Date / Time gabapentin AdvReac Hallucinati Verified 03/24/19 14:13 ng Home Medications Home Medications Medication Instructions Recorded Confirmed Type fexofenadine [Rocio Allergy] 180 mg PO QAM 03/05/18 03/24/19 History Lantus Solostar U-100 Insulin See Rx Instructions .ROUTE 05/16/18 03/24/19 Rx .COMPLEX #15 ml metoprolol succinate 25 mg PO BID #60 ea 05/16/18 03/24/19 Rx Eliquis 5 mg PO BID 01/06/19 03/24/19 History Xgeva 120 mg SUBCUT MONTHLY 01/06/19 03/24/19 History fulvestrant [Faslodex] 250 mg IM Q14D 01/06/19 03/24/19 History hydroxyzine HCl 25 mg PO BID 01/06/19 03/24/19 History omeprazole 20 mg PO BID 01/06/19 03/24/19 History torsemide 20 mg PO DAILY PRN 01/06/19 03/24/19 History insulin aspart U-100 [Novolog 0 unit SUBCUT UD 03/24/19 03/24/19 History Flexpen U-100 Insulin] oxycodone 5 mg PO Q4 03/24/19 03/24/19 History amlodipine [Norvasc] 5 mg PO QAM 30 Days #30 tab 04/07/19 Rx enoxaparin 40 mg SUBCUT Q24H 30 Days #12 ml 04/07/19 Rx metoprolol succinate 50 mg PO BID17 30 Days #30 tab 04/07/19 Rx rifaximin [Xifaxan] 550 mg PO BID 30 Days #60 tab 04/07/19 Rx Patient History Medical History ATN (acute tubular necrosis) (Resolved) Breast cancer metastasized to bone (Inactive) Chronic kidney disease (Inactive) CKD (chronic kidney disease), stage III (Chronic) DM type 2 (diabetes mellitus, type 2) (Chronic) Goals of care, counseling/discussion History of DVT (deep vein thrombosis) (Chronic) Hyperlipidemia (Chronic) Hypertension (Chronic) Irritable bowel syndrome (Chronic) Metastatic breast cancer (Chronic) Obesity hypoventilation syndrome (Chronic) TYE (obstructive sleep apnea) (Chronic) Osteoarthritis (Chronic) Rheumatoid arthritis (Inactive) Rheumatoid arthritis (Chronic) Right-sided heart failure (Chronic) Thrombocytopenia (Chronic) Surgical History History of hernia repair (Chronic) Family History Mother Stroke Diabetes Father Diabetes Social History Preferred Language: Polish Communication Ability: Effective Visual Impairment: No Limitations Cosmetology Teacher Required: No Beliefs That Will Affect Care: Jainism Jainism Beliefs: Denominational marital status: Current Living Situation: Spouse Other Information That Helps Us Care for You: No Feels Safe at Home: Yes Safety Concerns: Feels Safe At This Time Smoking Status: Never smoker Second Hand Exposure: No ; Hx Alcohol Use: No Hx Substance Use: No Review of Systems Review of Systems: All systems reviewed & are unremarkable except as noted in HPI & below Respiratory: no cough and no dyspnea Gastrointestinal: + diarrhea/loose stools (on lactulose); no abdominal pain and no constipation Musculoskeletal: + joint pain (ongoing diffuse severe >> worst in back and R shoulder recently) Psychiatric: no behavioral changes Physical Exam Constitutional: well developed and + morbidly obese; no acute distress (on 02NC in bed A& o0 x 3) Eyes: EOM intact bilaterally ENMT: Ears: no external ear abnormality Nose: no external nose abnormality Mouth: + dry oral mucous membranes Neck: no nuchal rigidity Respiratory: normal respiratory effort Auscultation: lungs clear to auscultation bilaterally (anterior exam d/t pain w/ position changes) and + diminished lung sounds Cardiovascular: RRR, no murmur, no edema Gastrointestinal (Abdomen): Inspection/Auscultation: normal bowel sounds; abdomen not distended Percussion/Palpation: abdomen soft; abdomen nontender and no guarding Musculoskeletal: Extremities: strength 5/5 throughout rios, ++ generalized weakness and limited ROM Skin: no rashes, warm and dry Neurologic: rios, fluent speech, no tremor Psychiatric: A+Ox3, euthymic affect Speech: normal rate/rhythm/volume of speech Genitourinary: courtney w/ ample light yellow urine Results & Data Vital Signs (Past 12 Hours) Vital Signs Temp Pulse Pulse Pulse Pulse Resp BP 04/07/19 16:21 80 04/07/19 15:40 36.7 C 73 19 129/68 04/07/19 11:20 36.8 C 75 20 122/65 04/07/19 07:01 77 19 04/07/19 06:54 37.1 C 78 24 127/70 Pulse Ox 04/07/19 16:21 04/07/19 15:40 95 04/07/19 11:20 94 04/07/19 07:01 96 04/07/19 06:54 96 Laboratory Results 04/07/19 06:01 04/07/19 06:01 Diagnostic Findings cxr today 1. Hypoinflation with right hemidiaphragmatic elevation. 2. Mild bibasilar opacities persist, likely reflective of atelectasis with pneumonia or aspiration pneumonitis considered less likely. 3. Multifocal skeletal metastasis.
--- NOTE | 2019-04-07 17:45 | Discharge Summary ---
Date of Service April 07, 2019 Admission HPI Per Admitting Provider This is a 63-year-old female who has significant past medical history of metastatic breast cancer to bone, T2 DM, HLD, obesity hypoventilation syndrome, right heart failure, chronic ITP, history of DVT anticoagulated on Eliquis, rheumatoid arthritis, depression who presents to ED at the recommendation of Dr. Ligth hematology oncology secondary to abnormal labs and epistaxis. For the past 2 weeks she has been having off and on nose bleeds, one lasting for 5 hours. She sought tx at [facility] and was able to get bleeding to stop. Further complains of SOB at rest, TOMAS on exertion, dizziness, nausea. Denies fever but is always cold. Denies sweats, syncope, chest pain, hemoptysis, emesis, diarrhea, melena, hematochezia. Complains of chronic arthralgias. She was seen today at Dr. Light's office and was found to be hypoxic in the 70s. She required oxygen at 3 L via NC. Because of hypoxia and low platelets she was referred to ED. Her last nosebleed was yesterday. In ED a nasal packing was placed trans-examined acid and bleeding has ceased. She did have a posterior pharynx blood clot that was removed by ENT. In ED patient remained hemodynamically stable. Her H&H was 5.6 and 18.7 with platelet count of 15k BUN/creatinine 41 and 1.15, glucose 184, alk phos 121, albumin 2.4, corrected calcium 11.2, mag 1.7 She is currently being transfused 2 units PRBC. Admission Exam Per Admitting Provider Constitutional: WD/WN, unkempt, vitals as above, NAD, sitting up in bed, pleasant, conversing easily Head: Normocephalic, Atraumatic Eyes: PERRL, conjunctivae normal, anicteric sclerae ENMT: external ear WN, Nose with nasal packing in place, oxymask in place due to unable to place NC, oropharynx normal Neck: trachea midline, no thyromegaly normal visual inspection Respiratory: normal respiratory effort, lungs clear to auscultation, no wheeze, rales, rhonchi. Normal insp/exp effort, no accessory muscle use Cardiovascular: RRR, no murmur, trace lower ext edema with venous stasis changes Vessels: no JVD or carotid bruit Chest: normal inspection of chest Abdomen: normal bowel sounds, soft, nontender, no hepatosplenomegaly Musculoskeletal: no cyanosis or clubbing, extremities motor strength 5/5 Skin: no rashes, warm and dry normal turgor Neurologic: PERRL, EOMI, accommodation nl, no face palsy, no dysarthria CN's II-XI intact bilaterally and moves all extremities Psychiatric: A+Ox3, euthymic affect Lymphatic: no cervical or axillary lymphadenopathy : deferred Principal Diagnosis EPISTAXIS, ANEMIA, THROMBOCYTOPENIA; ATRIAL FIBRILLATION; HEPATIC ENCEPHALOPATHY Discharge Exam General- oriented x 3, not in distress, speaks in sentences with no effort or accessory muscle use Eyes- anicteric Neck- no JVD Lungs- clear breath sounds bilaterally, no wheezing, no crackles bilaterally Heart- normal rate, regular rhythm; no murmurs Abdomen- normal bowel sounds, nondistended, soft, nontender Extremities- no pretibial edema, no calf tenderness Neuro- alert, oriented x 3; no other gross focal neurologic deficits Skin- warm & dry Discharge Data Allergies Allergy/AdvReac Type Severity Reaction Status Date / Time gabapentin AdvReac Hallucinati Verified 03/24/19 14:13 ng Consultations 03/24/19 16:36 ED Decision to Admit Stat 03/24/19 19:57 Consult Case Management - Discharge Planning Routine Consult Otolaryngology (Head and Neck) Routine 03/26/19 04:41 Consult Certified Nursing Assistant Routine 03/30/19 17:05 Consult Pulmonology Routine 03/31/19 10:29 Consult Cardiology Routine 04/03/19 07:43 Consult Gastroenterology Routine 04/04/19 10:36 Consult Palliative Care Routine 04/04/19 12:56 Consult Health Information Management Routine 04/06/19 10:24 Consult Patient Services Routine 04/06/19 18:00 Consult Nephrology Routine Ordered Studies 03/26/19 05:03 CT head/brain wo con Urgent Impression: 1. No acute intracranial abnormality. 2. Extracranial soft tissue edema. 04/02/19 14:11 CT head/brain wo con Stat Impression: Motion artifact. No definite acute intracranial abnormality. 04/04/19 21:36 CT lumbar spine wo con Urgent Hospital Course (1) Epistaxis: Epistaxis, Severe anemia, Thrombocythemia: Respiratory failure requiring intubation: Acute on chronic respiratory failure with hypoxia and hypercapnia: per Dr. Sena's notes: This is a 63-year-old female who has significant past medical history of metastatic breast cancer to bone, T2 DM, HLD, obesity hypoventilation syndrome, right heart failure, chronic ITP, history of DVT anticoagulated on Eliquis, rh eumatoid arthritis, depression who presents to ED at the recommendation of Dr. Light hematology oncology secondary to abnormal labs and epistaxis. In ED a nasal packing was placed, tranexamic acid and bleeding has ceased. She did have a posterior pharynx blood clot that was removed by ENT. Her H&H was 5.6 and 18.7 with platelet count of 15 She was transfused PRBC, and Plts patient became significantly hypercapnic with CO2 of 130 and pH of 7.00 and was obtunded, was intubated admitted to the ICU, eventually extubated On 03/30 Fr Viv-ENT removed the packing, Fibrillar was placed into the right nasal cavity along the septum. This material is absorbable and will come out on its own or be absorbed overtime. -- Held Eliquis -- discussed with [employer] Supervisor/Oncologist Dr. Light- recommend to resume anticoagulation given history of BL DVT last year and cancer discussed with ENT Dr. Coles- ok to start Lovenox 40mg SC -- no recurrence of epistaxis since starting Lovenox 04/01/19 Plt 33k on discharge day -- continue to monitor closely while on Lovenox SC repeat CBC on ff up with PCP within 1 week ff up with ENT Dr. Nam in 2 weeks Anemia -- Hg 9.2 -- given 5 units PRBC ordered while admitted remained stable around 8-9 while admitted New-onset atrial fibrillation -- converted to SR off Diltiazem drip -- 1 episode of non sustained V tach noted no recurrence so far -- echo ordered continue metoprolol succinate 50 mg p.o. twice a day full anticoagulation contraindicated Cardiology ff up with Dr. Tran in 2 weeks Encephalopathy, secondary to Elevated Ammonia, likely from Liver Mets -- NH4 increased Rifaximin added to Lactulose -- NH4 55 but mental status improved -- ABG: no respiratory acidosis, on Bipap -- improving GI consulted patient adamantly declines lactulose due to profuse diarrhea experienced, difficulty with back pain when being cleaned/turning after BM Lactulose discontinued, on Rifaximin only Patient's mental status improved while on Rifaximin alone continue Rifaximin 550mg BID pre auth pending, will ff up patient given 2 day supply, will update her once preauth is approved CKD (chronic kidney disease), stage III: Stable Metastatic breast cancer, with Hypercalcemia As per Dr. Sena's notes: Metastatic breast cancer to bone, lung Follows Dr. Light Receiving Xgeva and Faslodex -treatments held given thrombocytopenia oxycodone for metastatic pain - verified in pdmp-- - Calcium level -12 --Palliative care consulted, patient would like to proceed with medical management ff up with Dr. Light in 1-2 weeks -- repeat BMP and Ca on ff up consult with Dr. Anabella Light or Dr. Madsen if with elevated Ca Right-sided heart failure: Chronic right sided heart failure Echo 09/04/2018 revealed normal LVEF, grade 1 diastolic dysfunction, right ventricular cavity dilated with diffuse right ventricular hypokinesis Monitor volume status closely given transfusion Patient prescribed O2 2 L at home --Lasix held secondary to alkalosis transitioned to Acetazolamide twice a day , received x 3 days, now discontinued as patient appears euvolemic Euvolemic today, continue to monitor -- re-evaluate on ff up with PCP, Torsemide PO as needed Hyperammonemia: management noted above TYE (obstructive sleep apnea): per Pulmonary SVC: Bipap settings adjusted, recommend to continue at home per pulm, For the time being recommend full-face CPAP given that the patient had epistaxis. Use humidified oxygen. DM type 2 (diabetes mellitus, type 2): 01/07/19 A1c 9.2 Lantus/NovoLog per protocol Repeat A1c 5.8 -- Pharmacy consulted History of DVT (deep vein thrombosis): History of DVT and also with hypercoagulable state given metastatic carcinoma Hold Eliquis in setting of severe anemia and thrombocytopenia -- discussed with Oncologist and ENT- recommend Lovenox 40mg SC daily Rheumatoid arthritis: Patient takes oxycodone 5 mg every 4 hours Verified with PDMP -- decreased to q6 to avoid altered mental status, lethargy Disposition: d/c home today after extensive discussion with patient and her , they prefer to be discharged home, declines home health services as well explained high risk for falls, injuries , re-admission if going home instead of SNF/Rehab, and without HHS, they are understanding, agreeable and comfortable with plan of care, accepting of risks involved FOLLOW UP: PCP IN [address] ANABELLA LIGHT ONCOLOGY IN [address] NAM ENT IN [address] TRAN STRUCTURAL ANALYST IN 2 WEEKS Total Time Total Time Spent Total Time Spent (In Minutes): >100 MINS Discharge Plan Discharge Items Patient Disposition: Home - Self-Care Reason For Visit: EPISTAXIS WITH SEVERE ANEMIA/THROMBOCYTOPENIA Discharge Diagnosis: EPISTAXIS WITH SEVERE ANEMIA, LOW PLATELET COUNT, HEPATIC ENCEPHALOPATHY, ATRIAL FIBRILLATION Activity: As commented below Activity Comment: ALWAYS AMBULATE CAREFULLY, FALL PRECAUTIONS PLEASE Lifting: Wait until after follow-up appointment Exercise/Sports: Wait until after follow-up appointment Driving/Machine Use: NO DRIVING Non-emergency contact: Primary Care Provider Call non-emergency contact if: you have any medication questions, your symptoms worsen, your pain is not controlled, your pain is worsening and your pain is concerning for you Follow-up/Referrals: Kylah Madsen MD, PhD [Physician] - Lucio Larry MD [Primary Care Provider] - Steven Tran MD [Physician] - Anabella Light MD [Surgeon] - Diet: Carb Consistent or DM2 and Heart Healthy Addtl Attending Provider Instructions: PLEASE REVIEW YOUR NEW MEDICATION LIST AND FOLLOW INSTRUCTIONS CAREFULLY. CALL PRIMARY CARE PHYSICIAN OR RETURN TO THE ER IMMEDIATELY IF WITH RECURRENCE OR WORSENING OF SYMPTOMS. CPAP RATE MUST HAVE A BACKUP RATE OF AT LEAST 12. USE FULL FACE MASK FOR CPAP. USE HUMIDIFIED OXYGEN. (PLEASE INFORM CPAP PROVIDER). FOLLOW UP WITH PRIMARY CARE PHYSICIAN IN 1 WEEK. THE CLINIC WILL CALL YOU FOR THE APPOINTMENT. PLEASE FOLLOW UP WITH DR. LIGHT IN 1-2 WEEKS. FOLLOW UP WITH STRUCTURAL ANALYST DR. TRAN IN 3-4 WEEKS. YOU WILL BE NOTIFIED ON SATURDAY IF RIFAXIMIN HAS BEEN AUTHORIZED BY INSURANCE. Pending Studies at Discharge: Yes Studies:: REPEAT BLOODWORK C/O PRIMARY CARE PHYSICIAN IN 1 WEEK (CBC AND BMP, CALCIUM). Stand-Alone Forms: [email or web address], Smoking Cessation Medications and DC Order Prescriptions: New metoprolol succinate 50 mg Tablet Extended Release 24 Hr 50 mg PO BID17 30 Days Qty: 30 RF: 2 amlodipine [Norvasc] 5 mg Tablet 5 mg PO QAM 30 Days Qty: 30 RF: 2 enoxaparin 40 mg/0.4 mL Syringe 40 mg subcut Q24H 30 Days Qty: 12 RF: 2 Xifaxan 550 mg Tablet 550 mg PO BID 30 Days Qty: 60 RF: 2 Continued omeprazole 20 mg capsule,delayed release(DR/EC) 20 mg PO BID RF: 0 torsemide 20 mg tablet 20 mg PO DAILY PRN (Reason: Edema) RF: 0 Novolog Flexpen U-100 Insulin 100 unit/mL (3 mL) insulin pen 0 unit SUBCUT UD RF: 0 Lantus Solostar U-100 Insulin 100 unit/mL (3 mL) insulin pen See Rx Instructions .ROUTE .COMPLEX Qty: 15 RF: 5 Changed oxycodone 5 mg tablet 5 mg PO Q6H Qty: 0 RF: 0 Discontinued fexofenadine [Rocio Allergy] 180 mg Tablet 180 mg PO QAM RF: 0 hydroxyzine HCl 25 mg tablet 25 mg PO BID RF: 0 Eliquis 5 mg tablet 5 mg PO BID RF: 0 Xgeva 120 mg/1.7 mL (70 mg/mL) Solution 120 mg SUBCUT MONTHLY RF: 0 fulvestrant [Faslodex] 250 mg/5 mL Syringe 250 mg IM Q14D RF: 0 metoprolol succinate 25 mg capsule,sprinkle,ER 24hr 25 mg PO BID Qty: 60 RF: 5 Discharge Orders: Discharge Order (Routine); Ordered 04/07/19 Ordered By: aRndy Grace Admission Data Admit Date/Time: 03/24/19 16:41 Attending Provider: Randy Grace Admit Provider: Sandi Kat Primary Care Provider: Lucio Larry Other Providers: Sandi Kat ; Jean Carlos Nam ; Shawn Lee Vyacheslav ; Steven Tran ; Frandy Sena ; Rashid Yeager ; Lin Eugene ; Kylah Madsen Other Interventions: Discharge Summary Assessment (RN) Last Done: 04/07/19 18:28 DC Date/Time DO NOT enter until pt leaves facility: 04/07/19 20:08
[2019-04-07] MEDS ORDERED: ENOXAPARIN INJ 40 MG/0.4 ML SYR SQ SCH (21:00)
[2019-04-07] MEDS ORDERED: RIFAXIMIN 550 MG TABLET PO SCH (21:00)
[2019-04-08] MEDS ORDERED: METOPROLOL SUCC 50MG EXT REL TAB PO SCH (09:00)
[2019-04-08] MEDS ORDERED: AMLODIPINE BESYLATE 5 MG TAB PO SCH (09:00)
== END 2019-04-07 20:08 | disposition home or self-care (01) | DRG 208 ==
LOC: ED 11:17 → SUATTDRO 16:41 → 2S 16:41 → 1E 03-26 05:02 → 2S 03-27 18:50

== ENCOUNTER 2019-04-17 10:52 | Inpatient (IN) ==
[2019-04-17] MEDS ORDERED: dilTIAZem HCl 5 MG/ML 5 ML VIAL IV STA (12:03)
[2019-04-17] MEDS ORDERED: OXYMETAZOLINE 0.05% 30 ML BTL ONE ×2 (12:03→18:00)
[2019-04-17] MEDS ORDERED: SODIUM CHLORIDE 0.9% 1000ML 1,000 ML IV STA (12:03)
[2019-04-17] MEDS ORDERED: SODIUM CHLORIDE 0.9% 1000ML 250 ML IV ONE (12:03)
[2019-04-17] MEDS ORDERED: SODIUM CHLORIDE 0.9% 250 ML IV PRN (12:03)
[2019-04-17] MEDS ORDERED: dilTIAZem HCL 125 MG in DEXTROSE 5% 100 ML IV SCH (12:15)
[2019-04-17 12:23] LABS: iSTAT Creatinine 1.5 mg/dl (0.6-1.3); iSTAT Hemoglobin 7.8 g/dl (12.0-16.0); iSTAT Ionized Calcium 1.94 mmol/l (1.12-1.32); iSTAT Potassium 3.8 mEq/L (3.3-5.0)
[2019-04-17 12:40] LABS: INR 1.1 (0.9-1.1); Partial Thromboplastin Ratio 0.8; Partial Thromboplastin Time 21.9 Seconds (21.0-31.0); Prothrombin Time 11.2 Seconds (9.0-12.0)
[2019-04-17 12:49] LABS: Alanine Aminotransferase 14 U/L (12-78); Albumin Globulin Ratio 0.5 (0.9-2); Albumin Level 2.6 gm/dl (3.4-5.0); Alkaline Phosphatase 132 U/L (45-117); Aspartate Aminotransferase 26 U/L (15-37); BUN Creatinine Ratio 48.1 (10-20); Bilirubin,Total 0.5 mg/dl (0.2-1); Blood Urea Nitrogen 67 mg/dl (7-18); Calcium 13.9 mg/dl (8.5-10.1); Carbon Dioxide 28 mmol/L (21-32); Chloride 106 mmol/L (98-107); Creatinine Clr Calc Pharmacy 49.9 ml/min; Est GFR (African American) 46.6; Est GFR (Non-African American) 40.2; Globulin 4.9 gm/dl (2.5-4.0); Glucose 119 mg/dl (70-99); Magnesium 1.8 mg/dl (1.8-2.4); Potassium 3.8 mmol/L (3.5-5.1); Sodium 139 mmol/L (136-145); Total Protein 7.5 gm/dl (6.4-8.2); Troponin I < 0.015 ng/ml (0-0.045)
[2019-04-17 12:56] LABS: Hematocrit (blood only) 27.5 % (37-47); Hemoglobin 8.5 g/dL (12.0-16.0); Mean Corpuscular Hemoglobin 26.1 pg (25-34); Mean Corpuscular Hgb Conc 30.9 g/dL (32-36); Mean Corpuscular Volume 84.4 fL (80-100); Nucleated RBC # (auto) 0.69 K/uL (0-0); Platelet Count 32 K/uL (130-400); RDW Coefficient of Variation 17.7 % (11.5-14.5); RDW Standard Deviation 53.4 fL (36.4-46.3); Red Blood Count 3.26 M/uL (4.2-5.4); White Blood Count 6.91 K/uL (4.8-10.8)
[2019-04-17 12:57] LABS: ALC (manual) 0.73 K/uL (1.2-3.4); ANC (manual) 5.44 K/uL (1.4-6.5); Anisocytosis Present; Basophilic Stippling 1+; Basophils # (manual) 0.12 K/uL (0-0.2); Basophils % (manual) 1.8 %; Eosinophils # (manual) 0.24 K/uL (0-0.5); Eosinophils % (manual) 3.5 %; Lymphocytes # (manual) 0.73 K/uL (1.2-3.4); Lymphocytes % (manual) 10.6 %; Metamyelocytes # (manual) 0.19 K/uL (0-0); Metamyelocytes % (manual) 2.7 %; Monocytes # (manual) 0.19 K/uL (0.11-0.59); Monocytes % (manual) 2.7 %; Neutrophils # (manual) 5.44 K/uL (1.4-6.5); Neutrophils % (manual) 78.7 %; Platelet Estimate Decreased (Normal)
[2019-04-17] MEDS ORDERED: SODIUM CHLORIDE 0.9% 1000ML 500 ML IV ONE (13:03)
[2019-04-17 13:04] LABS: Appearance Urine Clear (Clear); Bilirubin Urine Negative (Negative); Blood Urine Negative (Negative); Color Urine Yellow; Glucose Urine UA Negative (Negative); Ketones Urine Negative (Negative); Leukocyte Esterase Urine Negative (Negative); Nitrite Urine Negative (Negative); Protein Urine Negative (Negative); Specific Gravity Urine 1.015 (1.000-1.030); Urobilinogen Urine Negative (Negative)
--- NOTE | 2019-04-17 15:12 | History & Physical Report ---
Date of Service April 17, 2019 Assessment & Plan (1) Epistaxis: Pt is 63 y/o F with PMH metastatic breast cancer to bone, DM II, HTN, HLD, obesity hypoventilation syndrome, chronic respiratory failure on 3 L oxygen, chronic thrombocytopenia, chronic anemia, h/o DVT, chronic right-sided heart failure, RA, atrial fibrillation, epistaxis presented to ER with complaint of epistaxis today. Recent hospitalization 03/24/2019-04/07/2019 for epistaxis, anemia requiring 5 units PRBCs and was seen by Dr Edouard and had Fibrillar Tata duque. Her Eliquis was discontinued and Lovenox started on 04/11/19 and pt's Hgb and Plt were stable without recurrent epistaxis until today -In ER Afrin applied and compression with control of bleeding -Hgb:8.5 (8.5 on 04/07/19), Plt: 32 (33 on 04/07/19) -Monitor CBC -Afrin and compression as needed epistaxis -ENT consult. Dr. Nam contacted and recommends Afrin and compression prn epistaxis and would like contacted if uncontrolled epistaxis (2) Hypercalcemia: Reported some confusion this morning. No current confusion and pt alert and oriented x 3 Corrected calcium 15 for albumin of 2.6, ionized calcium: 1.76 -Prior admission PTH intact: 19.8, PTH related protein is still pending, vitamin D studies still pending -In ER given 750 mL total bolus NSS then ran at 125 ml/hr -Nephrology consult. Spoke with Dr. Madsen, recommends IVF, Zometa, Lasix 40mg. Consider calcitonin if no improvement -Zometa, Lasix 40mg IV, IVF -Repeat BMP tonight -Follow-up BMP (3) Atrial fibrillation with rapid ventricular response: Atrial fibrillation with rate up to 136 in ER. Patient asymptomatic -In ER Cardizem 10 mg IV bolus followed by Cardizem drip at 2.5 -Continue Cardizem drip -Continue metoprolol succinate 50 mg twice daily -Patient not on full anticoagulation secondary to epistaxis, anemia, thrombocytopenia -Cardiology consult (4) Chronic respiratory failure: On 3 L oxygen chronically -In ER on 3 L oxygen mask secondary to nasal clip with stable saturations at 96% - 100% -Continue chronic oxygen -Monitor (5) Hepatic encephalopathy: History of hepatic encephalopathy during recent admission 03/2018. During that admission patient refused further lactulose and rifaximin was added Ammonia: 36 -No current confusion, alert and oriented x3 -Continue rifaximin -Monitor (6) Anemia: (7) Thrombocytopenia: Chronic anemia. Chronic thrombocytopenia H/H: 8.5/27.5 (Hgb 8.5 on 04/07/2019). PLT: 32 (33 on 04/07/2019) -Monitor CBC -Consider transfusion if worsening (8) Hypertension: Stable -Continue amlodipine, metoprolol (9) CKD (chronic kidney disease), stage III: Cr: 1.39. Baseline ~1.3 -Monitor renal functions -Avoid nephrotoxic agents when possible (10) Chronic right-sided congestive heart failure: CXR: Cardiomegaly without radiographic evidence of congestive failure. small right pleural effusion and bibasilar atelectasis. 04/06/19 Echo: EF>70%, moderate LVH -One dose of Lasix 40mg IV -Continue Torsemide po daily -Monitor I&O's (11) Diabetes mellitus, type II: A1c: 5.8 on 03/25/19 -Basal, bolus insulin -Monitor BSG's (12) History of DVT (deep vein thrombosis): H/O DVT. Was on Eliquis which was discontinued in 03/2018 secondary to epistaxis, severe anemia. Lovenox was started on 04/01/2019 -Hold Lovenox currently (13) Obesity hypoventilation syndrome: (14) TYE treated with BiPAP: -Continue Bipap HS DVT Prophylaxis -SCDs for now Full Code as per discussion with pt Follows with Dr Larry for routine care Pt was seen and care coordinated with Dr Yu. See addendum History of Present Illness Chief Complaint: Epistaxis Primary Care Provider: Lucio Larry MD Pt is 63 y/o F with PMH metastatic breast cancer to bone, DM II, HTN, HLD, obesity hypoventilation syndrome, chronic respiratory failure on 3 L oxygen, chronic thrombocytopenia, chronic anemia, h/o DVT, chronic right-sided heart failure, RA, atrial fibrillation, epistaxis presented to ER with complaint of epistaxis today. Patient with recent hospitalization 03/24/2019-04/07/2019 for hypoxia, epistax is, anemia requiring 5 units PRBCs, new onset atrial fibrillation RVR, thrombocytopenia, hepatic encephalopathy. During that admission patient became hypercapnic and required intubation. Was seen by ENT-Dr. Nam and Fibrillar applied to right nare. During admission Eliquis was stopped. Lovenox was started 04/01/2019 patient did not have recurrent epistaxis and hemoglobin and platelets were stable. She was placed on rifaximin with improved cognition and lactulose was discontinued secondary to patient's preference. Patient denied home health/SNF/rehab upon discharge. Patient states feeling more weak and tired starting yesterday. Pt reports is sedentary and sits and sleeps in recliner. Reports has difficulty getting up and going to bathroom and often has urinary incontinence. Spouse reports this morning patient seemed confused as she was trying to stand up and did not know why she was trying to stand up. Patient states drinking max Ensure 1 drink daily. Patient denies shortness of breath, chest pain, dizziness, cough. Patient reports chronic lower extremity edema and denies noting any increase. Pt was to have follow up with ENT - Dr Nam yesterday and with Dr Light - alicia/onc and Dr Larry yesterday however did not go secondary to feeling weak. Denies fever/chills, diaphoresis, N/V/D/C, HARDEN, dizziness, syncope, vision changes, neck pain, palpitations,sore throat, choking, otalgia, rhinorrhea, abdominal pain, paresthesias, rashes, dysuria, hematuria, melena, hematochezia. Allergies Allergy/AdvReac Type Severity Reaction Status Date / Time gabapentin AdvReac Hallucinati Verified 04/17/19 13:40 ng Home Medications Home Medications Medication Instructions Recorded Confirmed Type Lantus Solostar U-100 Insulin See Rx Instructions .ROUTE 05/16/18 04/17/19 Rx .COMPLEX #15 ml omeprazole 20 mg PO BID 01/06/19 04/17/19 History torsemide 20 mg PO DAILY PRN 01/06/19 04/17/19 History Novolog Flexpen U-100 Insulin 0 unit SUBCUT UD 03/24/19 04/17/19 History amlodipine [Norvasc] 5 mg PO QAM 30 Days #30 tab 04/07/19 04/17/19 Rx enoxaparin 40 mg SUBCUT Q24H 30 Days #12 ml 04/07/19 04/17/19 Rx metoprolol succinate 50 mg PO BID17 30 Days #30 tab 04/07/19 04/17/19 Rx oxycodone 5 mg PO Q6H #0 tab 04/07/19 04/17/19 Rx rifaximin [Xifaxan] 550 mg PO BID 30 Days #60 tab 04/07/19 04/17/19 Rx Past Med/Surg History Medical History ATN (acute tubular necrosis) Breast cancer metastasized to bone (Inactive) Chronic kidney disease (Inactive) Chronic right-sided congestive heart failure CKD (chronic kidney disease), stage III Diabetes mellitus, type II Hepatic encephalopathy History of DVT (deep vein thrombosis) Hyperlipidemia (Chronic) Hypertension (Chronic) Irritable bowel syndrome (Chronic) Metastatic breast cancer Obesity hypoventilation syndrome TYE (obstructive sleep apnea) Osteoarthritis (Chronic) Rheumatoid arthritis (Inactive) Rheumatoid arthritis Right-sided heart failure Thrombocytopenia (Chronic) Surgical History History of hernia repair (Chronic) Family History Mother Stroke Diabetes Father Diabetes Social History Preferred Language: Croatian Communication Ability: Effective Visual Impairment: No Limitations Manager Diversity Required: No Beliefs That Will Affect Care: Yazidi Yazidi Beliefs: Hindu marital status: Current Living Situation: Spouse Other Information That Helps Us Care for You: No Feels Safe at Home: Yes Safety Concerns: Feels Safe At This Time Smoking Status: Never smoker Do You Dip or Chew Tobacco: No ; Second Hand Exposure: No ; Tobacco Cessation Education Requested by Patient: No Hx Alcohol Use: No Hx Substance Use: Yes substance use type: prescription drug Last Used Substance: Unknown Review of Systems Review of Systems: All systems reviewed & are unremarkable except as noted in HPI & below Physical Exam Physical Exam: General: no acute distress, morbid obesity Head: normocephalic, atraumatic Eyes: PERRL, EOM's intact, conjunctiva non-injected, anicteric ENT: normal inspection external ears, nose, No active epistaxis at this time, right nare with noted dried blood, mucous membranes moist Neck: supple, trachea midline, non-tender Lungs: no respiratory distress, diminished breath sounds, no rales/rhonchi/wheezing CV: irregularly irregular, rate 98, no murmur, no JVD, 2+pretibial edema Abd: normal BS, soft, non-tender Ext: no cyanosis, no calf tenderness Neuro: A&O x 3, no focal deficits noted, normal affect Skin: warm, dry Results & Data Vital Signs (Past 12 Hours) Vital Signs Temp Pulse Resp BP Pulse Ox 04/17/19 15:00 91 H 26 H 104/68 93 04/17/19 13:00 93 H 27 H 121/70 100 04/17/19 12:30 82 19 130/68 100 04/17/19 12:00 109 H 30 H 113/61 04/17/19 11:30 120 H 35 H 101/64 96 04/17/19 11:26 117 H 23 97/72 L 95 04/17/19 11:18 136 H 32 H 148/81 H 94 04/17/19 11:02 36.8 C 119 H 22 148/81 H 96 Laboratory Results Short CBC 04/17/19 Range/Units 12:03 WBC 6.91 (4.8-10.8) K/uL Hgb 8.5 L (12.0-16.0) g/dL Hct 27.5 L (37-47) % Plt Count 32 L (130-400) K/uL BMP 04/17/19 12:03 Sodium 139 Potassium 3.8 Chloride 106 Carbon Dioxide 28 BUN 67 H Creatinine 1.39 H Glucose 119 H Calcium 13.9 H* Cardiac Enzymes 04/17/19 Range/Units 12:03 Troponin I < 0.015 (0-0.045) ng/ml Liver Function 04/17/19 Range/Units 12:03 Total Bilirubin 0.5 (0.2-1) mg/dl AST 26 (15-37) U/L ALT 14 (12-78) U/L Alkaline Phosphatase 132 H (45-117) U/L Albumin 2.6 L (3.4-5.0) gm/dl Urine 04/17/19 Range/Units 12:45 Urine Color Yellow Urine Appearance Clear (Clear) Urine pH 5.0 (4.5-7.5) Ur Specific Reserve 1.015 (1.000-1.030) Urine Protein Negative (Negative) Urine Glucose (UA) Negative (Negative) Diagnostic Findings CXR: IMPRESSION: 1. Cardiomegaly without radiographic evidence of congestive failure. 2. There is a small right pleural effusion and bibasilar atelectasis. 3. Again seen are changes of multifocal osseous metastatic disease. ECG Rate (beats per minute): 134 Rhythm: atrial fibrillation Findings: + RBBB Code Status & VTE Plan VTE Prophylaxis Plan VTE Prophylaxis will be ordered: Yes Supervising Physician Co-Signing Physician Notes Pt was seen and examined. Agreed with Jacinda JAMES exam, assessment and plan. 63 y/o F with PMH metastatic breast cancer to bone, DM II, HTN, HLD, obesity hypoventilation syndrome, chronic respiratory failure on 3 L oxygen, chronic thrombocytopenia, chronic anemia, h/o DVT, chronic right-sided heart failure, RA, atrial fibrillation, epistaxis presented to ER with complaint of epistaxis. Pt said that she has been very tired and weak. Lab done in the ER showed calcium 13.9 and corrected calcium with the albumin above 15. Received IVF in the ER. Case discussed Nephrology recommended to continue IVF at 125ml/hr. OK to give lasix 40mg x1 since pt continue to get IVF. Will monitor closely for volume over load. Consult ENT for the epistaxis. If develops nose bleeding, will apply pressure and use afrin. Was found to be in Afib and RVR. HR controlled. Not a candidate for anticoagulation due to nose bleeding. Cardiology consult. Continue monitor electrolytes. Will continue monitor closely in tele. MD Gigi (1) Anemia Anemia type: unspecified type Qualified Code(s): D64.9 - Anemia, unspecified
--- NOTE | 2019-04-17 15:14 | XRay Report ---
SINGLE VIEW CHEST CLINICAL HISTORY: Atrial fibrillation. FINDINGS: An AP, portable, upright chest radiograph is compared to study dated 04/07/2019. Correlatio n is made with chest CT dated 05/09/2018. The examination is degraded by portable technique and patien t rotation. The heart is enlarged. The pulmonary vasculature is noncongested. There is chronic elevat ion of the right hemidiaphragm with bibasilar atelectasis. There is a small right pleural effusion. N o pneumothorax is seen. The skeletal structures are osteopenic. Again seen are changes of multifocal osseous metastatic disease. There are healed bilateral rib fractures. IMPRESSION: 1. Cardiomegaly without radiographic evidence of congestive failure. 2. There is a small right pleural effusion and bibasilar atelectasis. 3. Again seen are changes of multifocal osseous metastatic disease. ACT 112: Negative or not required by law. Electronically signed by: Tommy Walter M.D. 04/17/2019 3:13 PM
[2019-04-17] MEDS ORDERED: ZOLEDRONIC ACID 4 MG in 0.9 % SODIUM CHLORIDE 100 ML IV ONE (15:15)
--- NOTE | 2019-04-17 15:55 | Emergency Department Note ---
Entered by Kamran Becker acting as a scribe for Guy Louis MD ED Provider Note CHIEF COMPLAINT: Weakness HISTORY OF PRESENT ILLNESS: The patient is a 63 year old female who presents to the Emergency Room with complaints of constant generalized weakness that started earlier this morning. The patient has a history of cancer and anemia. She is not currently doing any chemotherapy. The patient reports that this morning she had a nose bleed that has been trickling constantly since the onset. The patient is on Lovenox after recently being switched from Eliquis and her last dose was last night. The patient has a history of Afib when her blood counts get low and she is currently in Afib. She also has a family history of Afib. The patient took all of her morning medications today besides the blood thinner. The patient endorses shortness of breath especially when she is not on her oxygen. The patient was recently admitted for similar symptoms for 2 weeks. and followed up with Dr. Nam for the nose bleed. Pt denies LOC, headache, fevers, chills, diaphoresis, visual changes, neck pain, chest pain, nausea, vomiting, abdominal pain, back pain, melena, hematochezia, urinary symptoms, numbness, lymphadenopathy, rash, or other complaints. REVIEW OF SYSTEMS: See HPI for pertinent positives and negatives. A total of ten systems were reviewed and were otherwise negative. PMHx/PSHx: Afib RVR, Anemia, HLD, HTN, SOCIAL HISTORY: Patient lives at home. Never smoker. PHYSICAL EXAM: GENERAL: Awake, alert, well-appearing, in no distress HENT: Normocephalic, atraumatic. Oropharynx unremarkable. EYES: Normal conjunctiva. Sclera non-icteric. NECK: Inspection normal. Non-tender. Supple. No nuchal rigidity. FROM. No masses. RESPIRATORY: Clear to auscultation. No wheezes. No rales. Normal respiratory effort. CARDIAC: Normal rate. Normal rhythm. No murmurs. No rubs. Extremities warm and well perfused. Pulses equal. No JVD. GI: Soft, non-distended. No tenderness to palpation. No rebound or guarding. No masses. RECTAL: Deferred. MUSCULOSKELETAL: Atraumatic. Chest examination reveals no tenderness. The back is symmetrical on inspection without obvious abnormality. There is no CVA tenderness to palpation. No joint edema. LOWER EXTREMITIES: Calves are equal size bilaterally and non-tender. No edema. No discoloration. NEURO: Normal sensorium. No sensory or motor deficits noted. SKIN: No rash or jaundice noted. EMERGENCY DEPARTMENT COURSE: 1159: Past medical records reviewed. The patient was evaluated in room A11B, and a complete history and physical examination were performed. 1328: I discussed the patient's case with Jacinda Otero PAC under Dr. Gigi Otero Hospitalist. They agreed to accept the patient for further evaluation. MEDICAL DECISION MAKING: Prior records/ancillary studies reviewed. Nursing notes reviewed and agree them. Additional history obtained from family. The patient's history was concerning for weakness, nosebleed, recent anemia and thrombocytopenia, and cancer. Differential diagnosis: Etiologies such as symptomatic anemia, thrombocytopenia, coagulopathy, metabolic, infection, hypo/hyperglycemia, electrolyte abnormalities, cardiac sources, intracerebral event, toxicologic, neurologic, as well as others were entertained. Physical examination: As above. ER treatment provided: IV Lock Normal saline hydration IV Cardizem bolus and drip Nasal Afrin and pressure with bleeding control Supplemental oxygen On reassessment the patient felt better. Diagnostics interpretation by me: ECG: A. fib with RVR The labs revealed a significant anemia and thrombocytopenia on CBC. Chemistry panel revealed dehydration and hypercalcemia. Troponin negative. Consultation: A consultation was placed with the [facility] measurement coordinator oncologist, Dr. Light. He recommended holding platelets or blood unless any additional bleeding occurs. A consultation was placed with the hospitalist. The case was discussed and diagnostics were reviewed. The patient was evaluated in the ER for further treatment. IMPRESSION: Afib RVR Epistaxis Thrombocytopenia Hypercalcemia Hyperammonemia PLAN: Being evaluated by the Hospitalist CRITICAL CARE: I have personally spent greater than 30 minutes of critical care time in the direct management of this patient. This includes bedside care, interpretation of diagnostic studies, and testing, discussion with consultants, patient, and family members, and other required patient management activities. This 30 minutes is in excess of all separately billable procedures. The scribe's documentation has been prepared under my direction and personally reviewed by me in its entirety. I confirm that the note above accurately reflects all work, treatment, procedures, and medical decision making performed by me. Impression & Plan Atrial fibrillation with RVR, Thrombocytopenia, Hyperammonemia, Epistaxis, Hypercalcemia Past Med/Surg History Medical History ATN (acute tubular necrosis) Breast cancer metastasized to bone (Inactive) Chronic kidney disease (Inactive) CKD (chronic kidney disease), stage III DM type 2 (diabetes mellitus, type 2) History of DVT (deep vein thrombosis) Hyperlipidemia (Chronic) Hypertension (Chronic) Irritable bowel syndrome (Chronic) Metastatic breast cancer Obesity hypoventilation syndrome TYE (obstructive sleep apnea) Osteoarthritis (Chronic) Rheumatoid arthritis (Inactive) Rheumatoid arthritis Right-sided heart failure Thrombocytopenia (Chronic) Surgical History History of hernia repair (Chronic) Family History Mother Stroke Diabetes Father Diabetes Social History Preferred Language: [place] Islander Communication Ability: Effective Visual Impairment: No Limitations Customer Advocacy Manager Required: No Beliefs That Will Affect Care: Sabianism Sabianism Beliefs: Denominational marital status: Current Living Situation: Spouse Feels Safe at Home: Yes Smoking Status: Never smoker Second Hand Exposure: No ; Hx Alcohol Use: No Hx Substance Use: No Results & Data Vital Signs Vital Signs - 24 hr 04/17/19 11:02 04/17/19 11:18 04/17/19 11:26 Temperature 36.8 C Temperature Source Oral Pulse Rate 119 H 136 H 117 H Pulse Rate from SpO2 Sensor 144 H 119 H Pulse Rhythm Irregular Respiratory Rate 22 32 H 23 Respiratory Effort / Characteristics Spontaneous Respiratory Depth Normal Respiratory Pattern Regular Blood Pressure 148/81 H 148/81 H 97/72 L Blood Pressure Mean 103 100 80 Blood Pressure Position Sitting Pulse Oximetry 96 94 95 Oxygen Delivery Method Nasal Cannula Nasal Cannula Nasal Cannula Oxygen Flow Rate 3 3 3 Sepsis Recent Fever Within 48 Hours No Sepsis New/Unexplained Change in Mental Status No Sepsis Action Taken by Nursing No Action Required 04/17/19 11:30 04/17/19 12:00 04/17/19 12:30 Temperature Temperature Source Pulse Rate 120 H 109 H 82 Pulse Rate from SpO2 Sensor 132 H 89 Pulse Rhythm Respiratory Rate 35 H 30 H 19 Respiratory Effort / Characteristics Respiratory Depth Respiratory Pattern Blood Pressure 101/64 113/61 130/68 Blood Pressure Mean 81 78 95 Blood Pressure Position Pulse Oximetry 96 100 Oxygen Delivery Method Nasal Cannula Nasal Cannula Oxymask Oxygen Flow Rate 3 3 3 Sepsis Recent Fever Within 48 Hours Sepsis New/Unexplained Change in Mental Status Sepsis Action Taken by Nursing 04/17/19 13:00 04/17/19 15:00 04/17/19 15:30 Temperature Temperature Source Pulse Rate 93 H 91 H 70 Pulse Rate from SpO2 Sensor 101 H 94 H 69 Pulse Rhythm Respiratory Rate 27 H 26 H 21 Respiratory Effort / Characteristics Respiratory Depth Respiratory Pattern Blood Pressure 121/70 104/68 119/69 Blood Pressure Mean 75 76 75 Blood Pressure Position Pulse Oximetry 100 93 100 Oxygen Delivery Method Oxymask Oxymask Oxymask Oxygen Flow Rate 3 3 3 Sepsis Recent Fever Within 48 Hours Sepsis New/Unexplained Change in Mental Status Sepsis Action Taken by Skilled Nursing Medications Current Medication List: was personally reviewed by me Laboratory Data Attestation: I reviewed the patient's lab results. Result diagrams: 04/17/19 12:03 04/17/19 12:03 Lab Results 04/17/19 04/17/19 04/17/19 Range/Units 12:03 12:03 12:06 WBC 6.91 (4.8-10.8) K/uL RBC 3.26 L (4.2-5.4) M/uL Hgb 8.5 L (12.0-16.0) g/dL POC Hgb (12.0-16.0) g/dl Hct 27.5 L (37-47) % POC Hct (37-47) % MCV 84.4 (80-100) fL MCH 26.1 (25-34) pg MCHC 30.9 L (32-36) g/dL RDW Std Deviation 53.4 H (36.4-46.3) fL RDW Coeff of Flori 17.7 H (11.5-14.5) % Plt Count 32 L (130-400) K/uL Absolute Nucleated RBC 0.69 H (0-0) K/uL Nucleated RBC % (auto) 10.0 % Neutrophils % (Manual) 78.7 % Lymphocytes % (Manual) 10.6 % Monocytes % (Manual) 2.7 % Eosinophils % (Manual) 3.5 % Basophils % (Manual) 1.8 % Metamyelocytes % (Man) 2.7 % Neutrophils # (Manual) 5.44 (1.4-6.5) K/uL Total Absolute Neuts 5.44 (1.4-6.5) K/uL Lymphocytes # (Manual) 0.73 L (1.2-3.4) K/uL Total Abs Lymphocytes 0.73 L (1.2-3.4) K/uL Monocytes # (Manual) 0.19 (0.11-0.59) K/uL Eosinophils # (Manual) 0.24 (0-0.5) K/uL Basophils # (Manual) 0.12 (0-0.2) K/uL Metamyelocytes # (Man) 0.19 H (0-0) K/uL Platelet Estimate Decreased L (Normal) Basophilic Stippling 1+ Anisocytosis Present PT 11.2 (9.0-12.0) Seconds INR 1.1 (0.9-1.1) APTT 21.9 (21.0-31.0) Seconds PTT Ratio 0.8 POC Sodium (135-144) mEq/L Sodium 139 (136-145) mmol/L POC Potassium (3.3-5.0) mEq/L Potassium 3.8 (3.5-5.1) mmol/L POC Chloride (101-112) mEq/L Chloride 106 (98-107) mmol/L Carbon Dioxide 28 (21-32) mmol/L POC Total CO2 (24-31) mEq/l Anion Gap 5.0 (3-11) POC Anion Gap (16-25) mmol/L POC BUN (7-18) mg/dl BUN 67 H (7-18) mg/dl Creatinine 1.39 H (0.6-1.2) mg/dl POC Creatinine (0.6-1.3) mg/dl Est Cr Clr Drug Dosing 49.9 ml/min Est GFR ( Amer) 46.6 Est GFR (Non-Af Amer) 40.2 BUN/Creatinine Ratio 48.1 H (10-20) Glucose 119 H (70-99) mg/dl POC Glucose (other) (70-99) mg/dl Calcium 13.9 H* (8.5-10.1) mg/dl POC Ioniz Calcium Glory (1.12-1.32) mmol/l Ionized Calcium (1.12-1.32) mmol/L Magnesium 1.8 (1.8-2.4) mg/dl Total Bilirubin 0.5 (0.2-1) mg/dl AST 26 (15-37) U/L ALT 14 (12-78) U/L Alkaline Phosphatase 132 H (45-117) U/L Ammonia (11-32) umol/L Troponin I < 0.015 (0-0.045) ng/ml Total Protein 7.5 (6.4-8.2) gm/dl Albumin 2.6 L (3.4-5.0) gm/dl Globulin 4.9 H (2.5-4.0) gm/dl Albumin/Globulin Ratio 0.5 L (0.9-2) Urine Color Urine Appearance (Clear) Urine pH (4.5-7.5) Ur Specific [place] (1.000-1.030) Urine Protein (Negative) Urine Glucose (UA) (Negative) Urine Ketones (Negative) Urine Blood (Negative) Urine Nitrite (Negative) Urine Bilirubin (Negative) Urine Urobilinogen (Negative) Ur Leukocyte Esterase (Negative) Blood Type Antibody Screen Crossmatch 04/17/19 04/17/19 04/17/19 Range/Units 12:06 12:09 12:10 WBC (4.8-10.8) K/uL RBC (4.2-5.4) M/uL Hgb (12.0-16.0) g/dL POC Hgb 7.8 L (12.0-16.0) g/dl Hct (37-47) % POC Hct 23 L (37-47) % MCV (80-100) fL MCH (25-34) pg MCHC (32-36) g/dL RDW Std Deviation (36.4-46.3) fL RDW Coeff of Flori (11.5-14.5) % Plt Count (130-400) K/uL Absolute Nucleated RBC (0-0) K/uL Nucleated RBC % (auto) % Neutrophils % (Manual) % Lymphocytes % (Manual) % Monocytes % (Manual) % Eosinophils % (Manual) % Basophils % (Manual) % Metamyelocytes % (Man) % Neutrophils # (Manual) (1.4-6.5) K/uL Total Absolute Neuts (1.4-6.5) K/uL Lymphocytes # (Manual) (1.2-3.4) K/uL Total Abs Lymphocytes (1.2-3.4) K/uL Monocytes # (Manual) (0.11-0.59) K/uL Eosinophils # (Manual) (0-0.5) K/uL Basophils # (Manual) (0-0.2) K/uL Metamyelocytes # (Man) (0-0) K/uL Platelet Estimate (Normal) Basophilic Stippling Anisocytosis PT (9.0-12.0) Seconds INR (0.9-1.1) APTT (21.0-31.0) Seconds PTT Ratio POC Sodium 140 (135-144) mEq/L Sodium (136-145) mmol/L POC Potassium 3.8 (3.3-5.0) mEq/L Potassium (3.5-5.1) mmol/L POC Chloride 106 (101-112) mEq/L Chloride (98-107) mmol/L Carbon Dioxide (21-32) mmol/L POC Total CO2 28 (24-31) mEq/l Anion Gap (3-11) POC Anion Gap 11.0 L (16-25) mmol/L POC BUN 70 H (7-18) mg/dl BUN (7-18) mg/dl Creatinine (0.6-1.2) mg/dl POC Creatinine 1.5 H (0.6-1.3) mg/dl Est Cr Clr Drug Dosing ml/min Est GFR ( Amer) Est GFR (Non-Af Amer) BUN/Creatinine Ratio (10-20) Glucose (70-99) mg/dl POC Glucose (other) 124 H (70-99) mg/dl Calcium (8.5-10.1) mg/dl POC Ioniz Calcium Glory 1.94 H* (1.12-1.32) mmol/l Ionized Calcium (1.12-1.32) mmol/L Magnesium (1.8-2.4) mg/dl Total Bilirubin (0.2-1) mg/dl AST (15-37) U/L ALT (12-78) U/L Alkaline Phosphatase (45-117) U/L Ammonia 36.0 H (11-32) umol/L Troponin I (0-0.045) ng/ml Total Protein (6.4-8.2) gm/dl Albumin (3.4-5.0) gm/dl Globulin (2.5-4.0) gm/dl Albumin/Globulin Ratio (0.9-2) Urine Color Urine Appearance (Clear) Urine pH (4.5-7.5) Ur Specific [place] (1.000-1.030) Urine Protein (Negative) Urine Glucose (UA) (Negative) Urine Ketones (Negative) Urine Blood (Negative) Urine Nitrite (Negative) Urine Bilirubin (Negative) Urine Urobilinogen (Negative) Ur Leukocyte Esterase (Negative) Blood Type B Positive Antibody Screen NEGATIVE Crossmatch See Detail 04/17/19 04/17/19 Range/Units 12:45 15:12 WBC (4.8-10.8) K/uL RBC (4.2-5.4) M/uL Hgb (12.0-16.0) g/dL POC Hgb (12.0-16.0) g/dl Hct (37-47) % POC Hct (37-47) % MCV (80-100) fL MCH (25-34) pg MCHC (32-36) g/dL RDW Std Deviation (36.4-46.3) fL RDW Coeff of Flori (11.5-14.5) % Plt Count (130-400) K/uL Absolute Nucleated RBC (0-0) K/uL Nucleated RBC % (auto) % Neutrophils % (Manual) % Lymphocytes % (Manual) % Monocytes % (Manual) % Eosinophils % (Manual) % Basophils % (Manual) % Metamyelocytes % (Man) % Neutrophils # (Manual) (1.4-6.5) K/uL Total Absolute Neuts (1.4-6.5) K/uL Lymphocytes # (Manual) (1.2-3.4) K/uL Total Abs Lymphocytes (1.2-3.4) K/uL Monocytes # (Manual) (0.11-0.59) K/uL Eosinophils # (Manual) (0-0.5) K/uL Basophils # (Manual) (0-0.2) K/uL Metamyelocytes # (Man) (0-0) K/uL Platelet Estimate (Normal) Basophilic Stippling Anisocytosis PT (9.0-12.0) Seconds INR (0.9-1.1) APTT (21.0-31.0) Seconds PTT Ratio POC Sodium (135-144) mEq/L Sodium (136-145) mmol/L POC Potassium (3.3-5.0) mEq/L Potassium (3.5-5.1) mmol/L POC Chloride (101-112) mEq/L Chloride (98-107) mmol/L Carbon Dioxide (21-32) mmol/L POC Total CO2 (24-31) mEq/l Anion Gap (3-11) POC Anion Gap (16-25) mmol/L POC BUN (7-18) mg/dl BUN (7-18) mg/dl Creatinine (0.6-1.2) mg/dl POC Creatinine (0.6-1.3) mg/dl Est Cr Clr Drug Dosing ml/min Est GFR ( Amer) Est GFR (Non-Af Amer) BUN/Creatinine Ratio (10-20) Glucose (70-99) mg/dl POC Glucose (other) (70-99) mg/dl Calcium (8.5-10.1) mg/dl POC Ioniz Calcium Glory (1.12-1.32) mmol/l Ionized Calcium 1.78 H* (1.12-1.32) mmol/L Magnesium (1.8-2.4) mg/dl Total Bilirubin (0.2-1) mg/dl AST (15-37) U/L ALT (12-78) U/L Alkaline Phosphatase (45-117) U/L Ammonia (11-32) umol/L Troponin I (0-0.045) ng/ml Total Protein (6.4-8.2) gm/dl Albumin (3.4-5.0) gm/dl Globulin (2.5-4.0) gm/dl Albumin/Globulin Ratio (0.9-2) Urine Color Yellow Urine Appearance Clear (Clear) Urine pH 5.0 (4.5-7.5) Ur Specific [place] 1.015 (1.000-1.030) Urine Protein Negative (Negative) Urine Glucose (UA) Negative (Negative) Urine Ketones Negative (Negative) Urine Blood Negative (Negative) Urine Nitrite Negative (Negative) Urine Bilirubin Negative (Negative) Urine Urobilinogen Negative (Negative) Ur Leukocyte Esterase Negative (Negative) Blood Type Antibody Screen Crossmatch Administered Medications Diltiazem HCl 125 mg/ Dextrose 125 mls @ 5 mls/hr IV .Q24H ADEBAYO; Protocol Stop: 05/17/19 12:14 Last Admin: 04/17/19 13:14 Dose: 2.5 mg/hr, 2.5 mls/hr Documented by: [id number] Cosigned by: [id number] Sodium Chloride (Nss 1000ml) 1,000 mls @ 125 mls/hr IV .Q8H STA Stop: 04/17/19 20:02 Last Infusion: 04/17/19 13:57 Dose: 125 mls/hr Documented by: [id number] Infusion: 04/17/19 13:45 Dose: 125 mls/hr Documented by: [id number] Infusion: 04/17/19 13:14 Dose: 0 mls/hr Documented by: [id number] Admin: 04/17/19 12:53 Dose: 125 mls/hr Documented by: [id number] Discontinued Medications Diltiazem HCl (Cardizem) 10 mg IV NOW STA Stop: 04/17/19 12:04 Last Admin: 04/17/19 12:27 Dose: 10 mg Documented by: [id number] Cosigned by: [id number] Sodium Chloride (Nss 1000ml) 250 mls @ 999 mls/hr IV .Q16M ONE Stop: 04/17/19 12:18 Last Infusion: 04/17/19 12:53 Dose: 0 mls/hr Documented by: [id number] Admin: 04/17/19 12:37 Dose: 999 mls/hr Documented by: [id number] Sodium Chloride (Nss 1000ml) 500 mls @ 999 mls/hr IV .Q31M ONE Stop: 04/17/19 13:33 Last Infusion: 04/17/19 13:45 Dose: 0 mls/hr Documented by: [id number] Admin: 04/17/19 13:14 Dose: 999 mls/hr Documented by: [id number] Zoledronic Acid 4 mg/ Sodium (Chloride) 105 mls @ 210 mls/hr IV ONE ONE Stop: 04/17/19 15:44 Last Admin: 04/17/19 15:38 Dose: 210 mls/hr Documented by: [id number] Oxymetazoline HCl (Afrin 0.05%) 1 sprays NA NOW ONE Stop: 04/17/19 12:04 Last Admin: 04/17/19 12:28 Dose: 1 sprays Documented by: [id number] ECG Data Attestation: I personally reviewed and interpreted this ECG as follows: Indication: + chest pain Rate (beats per minute): 134 Rhythm: atrial fibrillation ECG Intervals/blocks: + Right Bundle branch block ECG ST segments: + ST depression (Mild in the anterolateral ); no ST elevation ECG Findings: no PVCs Blood Pressure Blood Pressure Findings: Elevated blood pressure Blood Pressure Disposition: further management by hospitalist Discharge Plan Visit Data Chief Complaint: Illness ED Provider: Guy Louis Discharge Problem: Atrial fibrillation with RVR, Thrombocytopenia, Hyperammonemia, Epistaxis, Hypercalcemia Patient Disposition: Being Evaluated by Hospitalist Forms Stand Alone Forms: My [facility] Prescriptions Prescriptions: No Action omeprazole 20 mg capsule,delayed release(DR/EC) 20 mg PO BID RF: 0 torsemide 20 mg tablet 20 mg PO DAILY PRN (Reason: Edema) RF: 0 Novolog Flexpen U-100 Insulin 100 unit/mL (3 mL) insulin pen 0 unit SUBCUT UD RF: 0 metoprolol succinate 50 mg Tablet Extended Release 24 Hr 50 mg PO BID17 30 Days Qty: 30 RF: 2 amlodipine [Norvasc] 5 mg Tablet 5 mg PO QAM 30 Days Qty: 30 RF: 2 enoxaparin 40 mg/0.4 mL Syringe 40 mg subcut Q24H 30 Days Qty: 12 RF: 2 Xifaxan 550 mg Tablet 550 mg PO BID 30 Days Qty: 60 RF: 2 oxycodone 5 mg tablet 5 mg PO Q6H Qty: 0 RF: 0 Lantus Solostar U-100 Insulin 100 unit/mL (3 mL) insulin pen See Rx Instructions .ROUTE .COMPLEX Qty: 15 RF: 5 Referrals Referrals: Lucio Larry MD [Primary Care Provider] - The scribe's documentation has been prepared under my direction and personally reviewed by me in its entirety. I confirm that the note above accurately reflects all work, treatment, procedures, and medical decision making performed by me.
[2019-04-17] MEDS ORDERED: FUROSEMIDE 40 MG in SYRINGE 0 ML IV ONE (17:30)
--- NOTE | 2019-04-17 17:43 | Nephrology Consultation ---
Date of Consultation April 17, 2019 Assessment & Plan (1) Hypercalcemia: presenting calcium 13.9, ionized1.94; corrects to Ca 15 for her albumin of 2.6. -no indication to again repeat PTH, PTHrp, D levels - f/u pending ones -had 750 mL NS in ER; cont NS at 125 mL /hr and give one lasix dose this evening -on 04/17 had zometa 4 mg IV slowly over 30 min -for another bmp this evening; then daily -will also start calcitonin 320 units at 2100 if Ca more than 11 corrected SQ << verbal order in w/ pharmacy; we can continue calcitonin in AM and q12h x 72 hrs if Ca remains high -pls ensure any dietary supplements are low Ca Present on Admission?: Yes (2) CKD (chronic kidney disease), stage III: baseline creatinine mid to low 1's. at upper end of her baseline w/ presenting creatinine of 1.4 on 04/17/19 -daily bmp -avoid IV contrast unless lifesaving -fluids/diuretics w/ care as below Present on Admission?: Yes (3) Chronic right-sided congestive heart failure: torsemide on hold currently; w/ aggressive fluid resuscitation, recommend lasix 40 mg x1 IV only while on IVF; reassess in am for standing or continued doses -daily bmp -for now no FR but will need one Present on Admission?: Yes (4) Thrombocytopenia: plts chronically in 20-30s since at least january; cause of repeated bleeding episodes and admissions; no relation of this to renal function; relates to CA therapy -monitor cbc and for bleeding Present on Admission?: Yes (5) Anemia: hgb 7-8s; not an DEVIKA candidate d/t active cancer. from repeated bleeding episodes and CA therapy presumably. has needed multiple transfusions in past. transfuse prn. monitor cbc Present on Admission?: Yes History of Present Illness Reason for Consultation: hypercalcemia Requesting Physician: Dr Yu Attending Physician: Nico Yu MD History of Present Illness 63 y/o F w/ metastatic breast cancer whom I'm asked to see for hypercalcemia after she presented w/ worsening generalized weakness and a nosebleed and was found to have corrected calcium 15. Other PMH is complex and includes chronic respiratory failure on 02NC 3L 24/7, obesity hypoventilation syndrome and chronic R HF, CKD 3 w/ baseline creatinine 1.4, a fib, hx of DVT, DM, HTN, chronic anemia and thrombocytopenia w/ hgb in 8s and plts in 30s most recently, TYE on bipap, class 2 obesity. Her epistaxis was treated with afrin and compression. ENT following. Also had AF w/ RVR in ER > started on cardizem gtt. She missed several appts yesterday including w/ oncology d/t generalized weakness. This is her 6th hospital stay in 2 mos per her spouse. She was admitted here most recently 03/24-04/07 after also p/w epistaxis and anemia needing 5 units pRBC. Also had hypercalcemia late that admission which responded to IV fluids and change in nutritional supplements. Her PTH was low last month; PTHrp still pending as are D levels. There was a report of transient confusion this am but has not had this concern since presentation. I did talk w/ admitting team and recommended continued aggressive IVF, zometa, calcitonin. Allergies Allergy/AdvReac Type Severity Reaction Status Date / Time gabapentin AdvReac Hallucinati Verified 04/17/19 13:40 ng Home Medications Home Medications Medication Instructions Recorded Confirmed Type Lantus Solostar U-100 Insulin See Rx Instructions .ROUTE 05/16/18 04/17/19 Rx .COMPLEX #15 ml omeprazole 20 mg PO BID 01/06/19 04/17/19 History torsemide 20 mg PO DAILY PRN 01/06/19 04/17/19 History Novolog Flexpen U-100 Insulin 0 unit SUBCUT UD 03/24/19 04/17/19 History amlodipine [Norvasc] 5 mg PO QAM 30 Days #30 tab 04/07/19 04/17/19 Rx enoxaparin 40 mg SUBCUT Q24H 30 Days #12 ml 04/07/19 04/17/19 Rx metoprolol succinate 50 mg PO BID17 30 Days #30 tab 04/07/19 04/17/19 Rx oxycodone 5 mg PO Q6H #0 tab 04/07/19 04/17/19 Rx rifaximin [Xifaxan] 550 mg PO BID 30 Days #60 tab 04/07/19 04/17/19 Rx Patient History Medical History ATN (acute tubular necrosis) Breast cancer metastasized to bone (Inactive) Chronic kidney disease (Inactive) Chronic right-sided congestive heart failure CKD (chronic kidney disease), stage III Diabetes mellitus, type II Hepatic encephalopathy History of DVT (deep vein thrombosis) Hyperlipidemia (Chronic) Hypertension (Chronic) Irritable bowel syndrome (Chronic) Metastatic breast cancer Obesity hypoventilation syndrome TYE (obstructive sleep apnea) Osteoarthritis (Chronic) Rheumatoid arthritis (Inactive) Rheumatoid arthritis Right-sided heart failure Thrombocytopenia (Chronic) Surgical History History of hernia repair (Chronic) Family History Mother Stroke Diabetes Father Diabetes Social History Preferred Language: Citizen Of [place] Communication Ability: Effective Visual Impairment: No Limitations Electronics Department Manager Required: No Beliefs That Will Affect Care: Gnosticist Gnosticist Beliefs: Roman Catholic marital status: Current Living Situation: Spouse Other Information That Helps Us Care for You: No Feels Safe at Home: Yes Safety Concerns: Feels Safe At This Time Smoking Status: Never smoker Do You Dip or Chew Tobacco: No ; Second Hand Exposure: No ; Tobacco Cessation Education Requested by Patient: No Hx Alcohol Use: No Hx Substance Use: Yes substance use type: prescription drug Last Used Substance: Unknown Review of Systems Review of Systems: All systems reviewed & are unremarkable except as noted in HPI & below Respiratory: no cough, no chest congestion and no dyspnea Cardiovascular: no dyspnea and no palpitations ((sic)) Gastrointestinal: no abdominal pain, no change in bowel habits, no constipation and no diarrhea/loose stools Genitourinary: + urinary urgency; no dysuria and no difficulty urinating Musculoskeletal: + back pain, + joint pain, + swelling (controlled) and + muscle weakness (generalized) Neurologic: + generalized weakness and + confusion (? this am; not observed at [facility]); no tingling, no paresthesia, no tremor(s) and no behavioral changes Psychiatric: no behavioral changes Hematologic / Lymphatic: + easy bleeding Physical Exam Constitutional: well developed, well nourished and + obese; no acute distress on 02 facemask Eyes: EOM intact bilaterally ENMT: Ears: no external ear abnormality Nose: + foreign body in naris (dressing outside naris w/ dried blood); no external nose abnormality Mouth: + dry oral mucous membranes Neck: no nuchal rigidity Respiratory: normal respiratory effort, + labored breathing, able to speak in complete sentences and + paradoxical thoraco-abdominal movement Auscultation: lungs clear to auscultation bilaterally and + diminished lung sounds Cardiovascular: Rate/Rhythm: + irregularly irregular Extremities: + edema (trace BLE) Gastrointestinal (Abdomen): Inspection/Auscultation: normal bowel sounds Percussion/Palpation: abdomen soft; abdomen nontender, no guarding and no ascites Musculoskeletal: Extremities: + abnormal strength Skin: no rashes, warm and dry Neurologic: rios, fluent speech, no tremor Psychiatric: A+Ox3, euthymic affect Insight: good insight Judgement: g ood judgement Genitourinary: courtney present w/ clear ample urine Results & Data Vital Signs (Past 12 Hours) Vital Signs Temp Pulse Resp BP Pulse Ox 04/17/19 16:13 67 21 118/67 99 04/17/19 16:00 67 21 118/67 99 04/17/19 15:30 70 21 119/69 100 04/17/19 15:00 91 H 26 H 104/68 93 04/17/19 13:00 93 H 27 H 121/70 100 04/17/19 12:30 82 19 130/68 100 04/17/19 12:00 109 H 30 H 113/61 04/17/19 11:30 120 H 35 H 101/64 96 04/17/19 11:26 117 H 23 97/72 L 95 04/17/19 11:18 136 H 32 H 148/81 H 94 04/17/19 11:02 36.8 C 119 H 22 148/81 H 96 Laboratory Results 04/17/19 12:03 04/17/19 12:03 Diagnostic Findings CXR no congestive failure; multifocal osseous mets; small R pl effusion (1) Anemia Anemia type: unspecified type Qualified Code(s): D64.9 - Anemia, unspecified
[2019-04-17] MEDS ORDERED: GLUCOSE 10 TABS/TUBE PO PRN (17:47)
[2019-04-17] MEDS ORDERED: CARBOHYDRATES FOR HYPOGLYCEMIA PO PRN (17:47)
[2019-04-17] MEDS ORDERED: DEXTROSE 50% 50 ML SYRINGE IV PRN (17:47)
[2019-04-17] MEDS ORDERED: GLUCAGON FOR INJ 1 MG VIAL SQ PRN (17:47)
[2019-04-17] MEDS ORDERED: GLUCOSE 40% GEL 15 GM TUBE PO PRN (17:47)
[2019-04-17] MEDS ORDERED: SODIUM CHLORIDE 0.9% 1000ML 1,000 ML IV SCH (18:00)
[2019-04-17] MEDS: INSULIN ASPART 100 UNITS/ML 3 ML PEN SC SCH ×2 (18:35→20:58)
[2019-04-17] MEDS: OXYCODONE HCL IR 5 MG TAB (IMMEDIATE RELEASE) PO PRN (18:35)
[2019-04-17 18:47] LABS: BUN Creatinine Ratio 51.9 (10-20); Creatinine Clr Calc Pharmacy 59.2 ml/min; Est GFR (African American) 57.4; Est GFR (Non-African American) 49.6
[2019-04-17] MEDS: INSULIN GLARGINE SOLOSTAR 100 UNITS/ML 3 ML PEN SC SCH (20:57)
[2019-04-17] MEDS: METOPROLOL SUCC 50MG EXT REL TAB PO SCH (20:58)
[2019-04-17] MEDS: RIFAXIMIN 550 MG TABLET PO SCH (20:58)
[2019-04-17] MEDS: PANTOprazole 40 MG TAB PO SCH (20:59)
[2019-04-17] MEDS ORDERED: CALCITONIN SALMON SQ PRN (21:00)
[2019-04-17] MEDS ORDERED: CALCITONIN SALMON SQ STA (22:02)
[2019-04-18] MEDS: PROMETHAZINE HCL 12.5 MG in SODIUM CHLORIDE 0.9% 50 ML IV PRN (01:29)
[2019-04-18] MEDS: OXYCODONE HCL IR 5 MG TAB (IMMEDIATE RELEASE) PO PRN ×3 (03:02→20:14)
[2019-04-18 05:58] LABS: Nucleated RBC % (auto) 7.8 %
[2019-04-18 06:09] LABS: Hematocrit (blood only) 23.9 % (37-47); Hemoglobin 7.2 g/dL (12.0-16.0); Mean Corpuscular Hemoglobin 26.3 pg (25-34); Mean Corpuscular Volume 87.2 fL (80-100); RDW Coefficient of Variation 17.8 % (11.5-14.5); Red Blood Count 2.74 M/uL (4.2-5.4); White Blood Count 6.42 K/uL (4.8-10.8)
[2019-04-18] MEDS: ACETAMINOPHEN 325 MG TAB PO PRN (06:14)
[2019-04-18 06:20] LABS: Mean Corpuscular Hgb Conc 30.1 g/dL (32-36); Platelet Count 26 K/uL (130-400)
[2019-04-18 06:23] LABS: Basophilic Stippling Occasional; Basophils # (auto) 0.06 K/uL (0-0.2); Basophils % (auto) 0.9 %; Eosinophils % (auto) 3.1 %; Immature Granulocytes # (auto) 0.23 K/uL (0.00-0.02); Immature Granulocytes % (auto) 3.6 %; Lymphocytes # (auto) 0.45 K/uL (1.2-3.4); Monocytes # (auto) 0.28 K/uL (0.11-0.59); Monocytes % (auto) 4.4 %; Platelet Estimate SIGNIFIC DECREASED (Normal); Polychromasia 1+; Tear Drop Cells Occasional
[2019-04-18 06:29] LABS: BUN Creatinine Ratio 44.9 (10-20); Calcium 12.2 mg/dl (8.5-10.1); Creatinine Clr Calc Pharmacy 58.4 ml/min; Est GFR (African American) 56.3; Est GFR (Non-African American) 48.5; Potassium 3.9 mmol/L (3.5-5.1)
[2019-04-18] MEDS ORDERED: SODIUM CHLORIDE 0.9% 250 ML IV PRN (06:47)
--- NOTE | 2019-04-18 06:58 | Consultation Report ---
DATE OF CONSULTATION: 04/17/2019 OTOLARYNGOLOGY, HEAD AND NECK SURGERY INPATIENT CONSULTATION I have been asked by physician assistant education director, Jacinda Deleon, to see this patient with epistaxis. HISTORY OF PRESENT ILLNESS: The patient is a 63-year-old female who I have seen in the past for epistaxis. She was hospitalized in March of 2019 with epistaxis related to thrombocytopenia due to her metastatic breast carcinoma and treatments. At that time, she had a Merocel sponge placed and I asked the hospitalist team to administer platelets and packed red blood cells as she was also anemic at that time. She was eventually discharged to home on 04/07/2019, but then represented on 04/17/2019 to the Emergency Room with generalized weakness. She was found to have significant hypercalcemia as part of her workup and is being admitted for correction. In addition, she did have recurrence of her right epistaxis, although it was controlled with Afrin and direct pressure in the Emergency Room last evening. I was made aware of her admission and asked them to consult me if she had epistaxis that was not controlled with Afrin and direct pressure. I received a phone call at 5:00 this morning from the ICU team stating that she had recurrent epistaxis that was not responding to Afrin and direct pressure. The patient is on anticoagulation for atrial fibrillation. She is usually on Eliquis. This has been held. At the time of my arrival, she was not actively bleeding but had a large clot within her oropharynx as well as within the right nasal cavity. ALLERGIES: GABAPENTIN WHICH CAUSES HALLUCINATIONS. HOME MEDICATIONS: Insulin, omeprazole, torsemide, amlodipine, Lovenox, metoprolol, oxycodone p.r.n., and rifaximin. PAST MEDICAL HISTORY: 1. Metastatic breast cancer. 2. Chronic renal insufficiency. 3. Chronic right-sided congestive heart failure. 4. Diabetes mellitus. 5. Hepatic encephalopathy. 6. History of deep venous thrombosis. 7. Dyslipidemia. 8. Hypertension. 9. IBS. 10. Obstructive sleep apnea. 11. Obesity. 12. Rheumatoid arthritis. 13. Thrombocytopenia. 14. Anemia. FAMILY HISTORY: Noncontributory. No bleeding disorders or malignant hyperthermia. SOCIAL HISTORY: The patient is . She denies any tobacco, alcohol, or illicit drug use. REVIEW OF SYSTEMS: The patient has the above-mentioned epistaxis and bloody postnasal drip. She is also lightheaded and weak. She denies any dizziness, shortness of breath, or chest pain. PHYSICAL EXAMINATION: GENERAL: The patient is afebrile. VITAL SIGNS: Stable. She is satting 97% on 3 liters of oxygen via facemask. Blood pressure is 124/68. Pulse is 70. Respiratory rate is 22. HEENT: She is pale and chronically ill appearing. She has a significant clot within the right nasal cavity as well as within the oral cavity and oropharynx. The clot within her oral cavity and oropharynx was removed. Also the clot within her right nasal cavity was removed. After administration of topical lidocaine and Afrin to the right nasal cavity, a Merocel sponge was placed into the right nasal cavity and then further Afrin and lidocaine was sprayed on to the Merocel sponge in order to expand it. This resulted in cessation of bleeding. The patient tolerated the procedure well with no apparent complication. The patient has mild tachypnea. There is no audible wheezing. She is awake and alert and oriented x3. There is some peripheral edema noted, which is mildly pitting. IMPRESSION AND RECOMMENDATIONS: A 63-year-old female with metastatic breast carcinoma and thrombocytopenia with right-sided epistaxis which is controlled with a Merocel sponge. I recommended platelet administration to try to get her platelets to 50,000 or higher. Currently, her platelet count is 32. She is also anemic with a hematocrit of 27.5 and I do recommend consideration of packed red blood cell transfusion to get her hematocrit over 30. I will continue to monitor this patient's labs and will remove the pack once parameters are met. If she has any further bleeding that is not controlled by the above-mentioned pack, please do not hesitate to contact me.
[2019-04-18] MEDS: INSULIN ASPART 100 UNITS/ML 3 ML PEN SC SCH ×4 (07:41→20:30)
[2019-04-18] MEDS: INSULIN GLARGINE SOLOSTAR 100 UNITS/ML 3 ML PEN SC SCH ×2 (07:42→20:31)
--- NOTE | 2019-04-18 07:44 | Electrocardiogram Report ---
Test Reason : Blood Pressure : / mmHG Vent. Rate : 134 BPM Atrial Rate : 055 BPM P-R Int : 000 ms QRS Dur : 152 ms QT Int : 348 ms P-R-T Axes : 000 112 -05 degrees QTc Int : 519 ms Atrial fibrillation with rapid ventricular response Right bundle branch block Abnormal ECG When compared with ECG of 02-APR-2019 02:31, Atrial fibrillation has replaced Atrial flutter QRS duration has increased ST now depressed in Inferior leads Confirmed by Elías Smith ([id number]) on 04/18/2019 7:43:32 AM Referred By: Confirmed By:Eriberto Smith
[2019-04-18] MEDS: TORSEMIDE 20 MG TAB PO SCH (08:08)
[2019-04-18] MEDS: RIFAXIMIN 550 MG TABLET PO SCH ×2 (08:09→20:29)
[2019-04-18] MEDS: PANTOprazole 40 MG TAB PO SCH ×2 (08:09→20:29)
[2019-04-18] MEDS: AMLODIPINE BESYLATE 5 MG TAB PO SCH (08:09)
[2019-04-18] MEDS: METOPROLOL SUCC 50MG EXT REL TAB PO SCH ×2 (08:09→17:56)
[2019-04-18] MEDS ORDERED: XOPENEX/ATROVENT 1.25mg/0.5MG NEB COMBO NEB STA (10:42)
--- NOTE | 2019-04-18 10:47 | Hospitalist Progress Note ---
Date of Service April 18, 2019 Assessment & Plan (1) Epistaxis: Per admitting service notes: Pt is 63 y/o F with PMH metastatic breast cancer to bone, DM II, HTN, HLD, obesity hypoventilation syndrome, chronic respiratory failure on 3 L oxygen, chronic thrombocytopenia, chronic anemia, h/o DVT, chronic right-sided heart failure, RA, atrial fibrillation, epistaxis presented to ER with complaint of epistaxis today. Recent hospitalization 03/24/2019-04/07/2019 for epistaxis, anemia requiring 5 units PRBCs and was seen by Dr Edouard and had Fibrillar Tata duque. Her Eliquis was discontinued and Lovenox started on 04/11/19 and pt's Hgb and Plt were stable without recurrent epistaxis until today -In ER Afrin applied and compression with control of bleeding -Hgb:8.5 (8.5 on 04/07/19), Plt: 32 (33 on 04/07/19) 04/18/[address] Nam Merocel sponge placed in the right nostril Noted to have seepage on the gauze on the nostrils, discussed with Dr. Nam Continue present management, will transfuse platelets to goal around 50,000, transfuse hemoglobin to hematocrit 30 Status post 1 unit of platelets and packed RBC today, hemoglobin improved to 8.8 platelet count 44,000 We will continue to monitor Hold Lovenox or any anticoagulation for now, discussed with head of english/onc ologist Dr. Light, recommend vascular surgery evaluation for possible IVC filter placement Saturday (2) Hypercalcemia: Per admitting service notes Reported some confusion this morning. No current confusion and pt alert and oriented x 3 Corrected calcium 15 for albumin of 2.6, ionized calcium: 1.76 -Prior admission PTH intact: 19.8, PTH related protein is still pending, vitamin D studies still pending -In ER given 750 mL total bolus NSS then ran at 125 ml/hr -Nephrology consult. Spoke with Dr. Madsen, recommends IVF, Zometa, Lasix 40mg. Consider calcitonin if no improvement -Zometa, Lasix 40mg IV, IVF 04/18/2019 Calcium improved to 12.2 Continue calcitonin 320 units twice daily (3) Atrial fibrillation with rapid ventricular response: Per admitting service notes Atrial fibrillation with rate up to 136 in ER. Patient asymptomatic -In ER Cardizem 10 mg IV bolus followed by Cardizem drip at 2.5 04/18/2019 Atrial fibrillation has resolved, converted to sinus rhythm Off Cardizem drip -Continue metoprolol succinate 50 mg twice daily -Patient not on full anticoagulation secondary to epistaxis, anemia, thrombocytopenia -Appreciate cardiology consultation (4) Chronic respiratory failure: On 3 L oxygen chronically -In ER on 3 L oxygen mask secondary to nasal clip with stable saturations at 96% - 100% -Continue chronic oxygen -Monitor (5) Hepatic encephalopathy: History of hepatic encephalopathy during recent admission 03/2018. During that admission patient refused further lactulose and rifaximin was added Ammonia: 36 -Continues to be alert oriented x3 -Continue rifaximin -Monitor (6) Anemia: (7) Thrombocytopenia: Chronic anemia. Chronic thrombocytopenia H/H: 8.5/27.5 (Hgb 8.5 on 04/07/2019). PLT: 32 (33 on 04/07/2019) Management per #1 (8) Hypertension: Stable -Continue amlodipine, metoprolol (9) CKD (chronic kidney disease), stage III: Cr: 1.39. Baseline ~1.3 -Monitor renal functions -Avoid nephrotoxic agents when possible (10) Chronic right-sided congestive heart failure: CXR: Cardiomegaly without radiographic evidence of congestive failure. small right pleural effusion and bibasilar atelectasis. 04/06/19 Echo: EF>70%, moderate LVH Reported shortness of breath after blood transfusions Lasix IV given BiPAP while sleeping -Continue Torsemide po daily -Monitor I&O's (11) Diabetes mellitus, type II: A1c: 5.8 on 03/25/19 -Basal, bolus insulin -Monitor BSG's (12) History of DVT (deep vein thrombosis): H/O DVT. Was on Eliquis which was discontinued in 03/2018 secondary to epistaxis, severe anemia. Lovenox was started on 04/01/2019 -Hold Lovenox currently -Management per #1 (13) Obesity hypoventilation syndrome: (14) TYE treated with BiPAP: -Continue Bipap HS DVT Prophylaxis -SCDs for now in light of epistaxis, thrombocytopenia Full Code as per discussion with pt Follows with Dr Larry for routine care Subjective Follow-up for epistaxis, weakness Notified RN as patient was having more shortness of breath Seen sitting up in bed, packed RBCs transfusion ongoing, tachypneic but not in acute respiratory distress Speaks in sentences with mild effort and accessory muscle use States she does feel some mild dyspnea, no cough, no fevers or chills Denies chest pain, abdominal pain, nausea, pruritus No other symptoms Review of Systems Review of Systems: All systems reviewed & are unremarkable except as noted in HPI & below Physical Exam Physical Exam: General- oriented x 3, not in distress, speaks in sentences with no effort or accessory muscle use Eyes- anicteric Neck- no JVD Lungs-somewhat diminished breath bilaterally, faint rales at the bases, no wheezing Heart- normal rate, regular rhythm; no murmurs Abdomen- normal bowel sounds, nondistended, soft, nontender Extremities- no pretibial edema, no calf tenderness Neuro- alert, oriented x 3; no gross focal neurologic deficits Skin- warm & dry Results & Data Vital Signs (Past 12 Hours) Vital Signs Temp Pulse Pulse Resp BP BP Pulse Ox 04/18/19 10:00 36.6 C 67 26 H 126/67 98 04/18/19 09:00 36.7 C 67 16 113/69 93 04/18/19 08:30 36.6 C 70 16 121/57 L 93 04/18/19 08:15 36.6 C 68 18 118/63 95 04/18/19 08:00 36.5 C 72 16 117/61 93 04/18/19 07:35 36.5 C 72 16 116/61 95 04/18/19 07:34 36.5 C 72 16 116/61 95 04/18/19 06:34 36.5 C 68 14 116/61 94 04/18/19 06:30 37.1 C 76 22 144/71 H 04/18/19 06:15 37.1 C 75 25 H 121/72 04/18/19 06:04 37.0 C 76 21 119/61 04/18/19 06:02 37.3 C 78 22 120/53 L 93 04/18/19 06:00 75 22 91 04/18/19 05:59 72 25 H 120/55 L 92 04/18/19 05:15 70 22 124/68 97 04/18/19 02:30 86 18 04/18/19 02:28 36.7 C 88 20 140/82 91 04/18/19 02:27 83 19 140/82 04/18/19 02:00 79 29 H 04/18/19 01:30 89 19 04/17/19 23:13 76 25 H 146/65 H 91 04/17/19 23:12 36.5 C 76 18 146/81 H 91 (1) Anemia Anemia type: unspecified type Qualified Code(s): D64.9 - Anemia, unspecified
[2019-04-18] MEDS ORDERED: LEVALBUTEROL 1.25MG/0.5ML NEB INH STA (10:50)
[2019-04-18] MEDS ORDERED: IPRATROPIUM BROMIDE NEB SOLN 0.02% 2.5 ML VIAL INH STA (10:50)
--- NOTE | 2019-04-18 10:58 | XRay Report ---
XR chest 1V portable CLINICAL HISTORY: shortness of breath dyspnea COMPARISON STUDY: 04/17/2019 FINDINGS: Small right pleural effusion with mild right basilar atelectasis. This is unchanged. Bony m etastatic change is unaltered. IMPRESSION: No change from the prior exam. Unchanging small right pleural effusion and basilar atele ctasis. Stable bony metastatic change. ACT 112: Negative or not required by law. The above report was generated using voice recognition software. It may contain grammatical, syntax or spelling errors. Electronically signed by: Pratik Mora M.D. 04/18/2019 10:57 AM
[2019-04-18] MEDS ORDERED: FUROSEMIDE 40 MG in SYRINGE 0 ML IV ONE (11:00)
--- NOTE | 2019-04-18 12:39 | Cardiology Consultation ---
Date of Consultation April 18, 2019 Assessment & Plan (1) Atrial fibrillation with RVR: (2) Thrombocytopenia: (3) Epistaxis: (4) Hypercalcemia: (5) Chronic right-sided congestive heart failure: (6) Severe anemia: Review of patient's chart reveals that she had a recent prolonged hospital stay from 03/24/2019 until 04/07/2019. At that time she was admitted with epistaxis, and severe anemia with hemoglobin as low as 5.6 and platelet count of 15,000. She received transfusion during that admission and subsequently became hypercapnic and required transient endotracheal intubation for ventilator support. She was followed by Dr. Tran of our practice for paroxysmal atrial fibrillation during that hospital stay and was discharged on metoprolol, with thoughts that anticoagulation was obviously contraindicated given her anemia and severe thrombocytopenia. Nephrology is following the patient for hypercalcemia, with most recent levels 12.2. At this time I recommend ongoing observation and treatment with her current dose of metoprolol succinate 50 mg daily. Her liver function tests including bilirubin, AST, ALT within normal limits on 04/17/2019, and if atrial fibrillation becomes a long-lasting issue, future considerations include treating her with amiodarone, however given her history of metastatic disease to the liver with hepatic encephalopathy, would like to avoid this if possible. Would also avoid antiarrhythmic therapy if at all possible given her electrolyte abnormalities including hypercalcemia. I do not think another echocardiogram is necessary at present since she had one performed last month. Agree with transfusion as planned. History of Present Illness Attending Physician: Randy Grace MD History of Present Illness Maite Kimble is a 63 year old female seen in cardiology consultation per the request of Jacinda Deleon PA-C of the [facility] service for assistance in managing paroxysmal atrial fibrillation. The patient presented via the emergency department with recurrent epistaxis. She was not on anticoagulation. Ongoing thrombocytopenia was noted. Atrial fibrillation with rapid ventricular response and right bundle branch block were noted on presentation, she subsequently converted to sinus rhythm spontaneously on 04/17/2019 at 1523 hrs. prior to being transferred from the emergency department to the second floor ICU. She was seen by ENT this morning for further management of her epistaxis, and she is currently doing well with packing. She was receiving a unit of packed red blood cell transfusion at the time of my assessment and was without cardiac complaint. Past Medical History: 1. Chronic right heart failure with preserved left ventricular systolic function 2. Obstructive sleep apnea/obesity hypoventilation syndrome treated with BiPAP 3. Chronic kidney insufficiency 4. Hypertension 5. Breast carcinoma with bone and hepatic metastasis 6. Thrombocytopenia 7. Past DVT for which she was previously anticoagulated with Eliquis 8. Right bundle branch block 9. Paroxysmal atrial fibrillation 10. Epistaxis 11. Hypercalcemia 12. Hepatic encephalopathy Allergies Allergy/AdvReac Type Severity Reaction Status Date / Time gabapentin AdvReac Hallucinati Verified 04/17/19 13:40 ng Home Medications Home Medications Medication Instructions Recorded Confirmed Type Lantus Solostar U-100 Insulin See Rx Instructions .ROUTE 05/16/18 04/17/19 Rx .COMPLEX #15 ml omeprazole 20 mg PO BID 01/06/19 04/17/19 History torsemide 20 mg PO DAILY PRN 01/06/19 04/17/19 History Novolog Flexpen U-100 Insulin 0 unit SUBCUT UD 03/24/19 04/17/19 History amlodipine [Norvasc] 5 mg PO QAM 30 Days #30 tab 04/07/19 04/17/19 Rx enoxaparin 40 mg SUBCUT Q24H 30 Days #12 ml 04/07/19 04/17/19 Rx metoprolol succinate 50 mg PO BID17 30 Days #30 tab 04/07/19 04/17/19 Rx oxycodone 5 mg PO Q6H #0 tab 04/07/19 04/17/19 Rx rifaximin [Xifaxan] 550 mg PO BID 30 Days #60 tab 04/07/19 04/17/19 Rx Patient History Medical History ATN (acute tubular necrosis) Breast cancer metastasized to bone (Inactive) Chronic kidney disease (Inactive) Chronic right-sided congestive heart failure CKD (chronic kidney disease), stage III Diabetes mellitus, type II Hepatic encephalopathy History of DVT (deep vein thrombosis) Hyperlipidemia (Chronic) Hypertension (Chronic) Irritable bowel syndrome (Chronic) Metastatic breast cancer Obesity hypoventilation syndrome TYE (obstructive sleep apnea) Osteoarthritis (Chronic) Rheumatoid arthritis (Inactive) Rheumatoid arthritis Right-sided heart failure Thrombocytopenia (Chronic) Surgical History History of hernia repair (Chronic) Family History Mother Stroke Diabetes Father Diabetes Social History Preferred Language: [place] Communication Ability: Effective Visual Impairment: No Limitations Bobtailer Required: No Beliefs That Will Affect Care: Holiness Holiness Beliefs: Gnosticism marital status: Current Living Situation: Spouse Other Information That Helps Us Care for You: No Feels Safe at Home: Yes Safety Concerns: Feels Safe At This Time Smoking Status: Never smoker Do You Dip or Chew Tobacco: No ; Second Hand Exposure: No ; Tobacco Cessation Education Requested by Patient: No Hx Alcohol Use: No Hx Substance Use: Yes substance use type: prescription drug Last Used Subs tance: Unknown Review of Systems Review of Systems: All systems reviewed & are unremarkable except as noted in HPI & below Physical Exam Physical Exam: Temp Pulse Resp BP Pulse Ox 36.6 C 72 18 119/72 94 04/18/19 11:12 04/18/19 11:12 04/18/19 11:12 04/18/19 11:12 04/18/19 11:12 Constitutional: WD/WN, vitals as above Respiratory: Physical exam is limited by her body habitus with severe obesity, decreased breath sounds noted bilaterally at the bases Cardiovascular: Rate/Rhythm: regular rate Heart Sounds: no murmur Vessels: no JVD Extremities: no edema Gastrointestinal (Abdomen): normal bowel sounds, soft, nontender, no hepatosplenomegaly Neurologic: PERRL, EOMI, accommodation nl, no face palsy, no dysarthria Results & Data Laboratory Results Cardiac Enzymes 04/17/19 Range/Units 12:03 AST 26 (15-37) U/L Troponin I < 0.015 (0-0.045) ng/ml Coagulation 04/17/19 Range/Units 12:06 PT 11.2 (9.0-12.0) Seconds APTT 21.9 (21.0-31.0) Seconds CBC 04/17/19 04/18/19 Range/Units 12:03 05:48 WBC 6.91 6.42 (4.8-10.8) K/uL RBC 3.26 L 2.74 L (4.2-5.4) M/uL Hgb 8.5 L 7.2 L (12.0-16.0) g/dL Hct 27.5 L 23.9 L (37-47) % Plt Count 32 L 26 L* (130-400) K/uL Neut # (Auto) 5.20 (1.4-6.5) K/uL Lymph # (Auto) 0.45 L (1.2-3.4) K/uL Armstrong # (Auto) 0.28 (0.11-0.59) K/uL Eos # (Auto) 0.20 (0-0.5) K/uL Baso # (Auto) 0.06 (0-0.2) K/uL Comprehensive Metabolic Panel 04/17/19 04/17/19 04/18/19 Range/Units 12:03 18:09 05:48 Sodium 139 141 143 (136-145) mmol/L Potassium 3.8 4.0 3.9 (3.5-5.1) mmol/L Chloride 106 110 H 111 H (98-107) mmol/L Carbon Dioxide 28 27 29 (21-32) mmol/L BUN 67 H 61 H 53 H (7-18) mg/dl Creatinine 1.39 H 1.17 1.19 (0.6-1.2) mg/dl Glucose 119 H 116 H 144 H (70-99) mg/dl Calcium 13.9 H* 13.0 H* 12.2 H* (8.5-10.1) mg/dl AST 26 (15-37) U/L ALT 14 (12-78) U/L Alkaline Phosphatase 132 H (45-117) U/L Total Protein 7.5 (6.4-8.2) gm/dl Albumin 2.6 L (3.4-5.0) gm/dl Intake and Output 04/17/19 04/18/19 04/18/19 22:59 06:59 14:59 Intake Total 595.458 / 2464.708 1050.5 / 2464.708 618 / 618 Output Total 2800 / 2800 Balance 595.458 / -335.292 -1749.5 / -335.292 618 / 618 Intake: IV 595.458 / 2464.708 1050.5 / 2464.708 Phenergan 12.5 mg In Nss 50 ml 50.5 / 50.5 @ 202 mls/hr IV Q6H PRN Rx#: [id number] Nss 1000ML 1,000 ml @ 125 mls/ 483.333 / 0456.860 1057 / 1552.083 hr IV .Q8H [facility] Rx#:[id number] Zometa 4 mg In Sodium Chloride 105 / 105 100 ml @ 210 mls/hr IV ONE ONE Rx#:[id number] Cardizem 125 mg In D5 100 ml @ 7.125 / 7.125 5 MG/HR 5 mls/hr IV .Q24H [facility] Rx#:[id number] Intake (Blood Product) Amt 0 / 0 618 / 618 Packed Cells, Leukoreduced 310 / 310 Unit [id number] Platelet Pheresis, Leuko, Irra 0 / 0 308 / 308 Unit [id number] Output: Emesis 250 / 250 Urine Amount (Catheter) 2550 / 2550 Ta/Indwelling 2550 / 2550 Other: Other Intake Source Sips # Emeses 2 Weight 105.1 kg 105.7 kg Diagnostic Findings EKG performed 04/17/2019 11:23 AM: Atrial fibrillation with rapid ventricular response 134 bpm, right bundle branch block, nonspecific ST depression in the inferior leads versus repolarization changes related to underlying right bundle branch block. EKG performed 04/17/2019 at 1559 and reviewed independently: Normal sinus rhythm at 69 bpm, right bundle branch block, repolarization changes seem to be consistent with right bundle branch block rather than ischemia none of the heart rate is better controlled. Echocardiogram performed 04/06/2019: Small left ventricular chamber size with moderate concentric left ventricular hypertrophy Hyperdynamic left ventricular systolic function without regional wall motion abnormality, LVEF greater than 70% Moderate right ventricular chamber dilatation with moderate reduction in right ventricular systolic function Medications Administered Current Inpatient Medications Acetaminophen (Tylenol) 650 mg PO Q4H PRN PRN Reason: Pain or Fever Stop: 05/17/19 17:46 Last Admin: 04/18/19 06:14 Dose: 650 mg Documented by: Amlodipine Besylate ([facility]vasc) [facility] [place] Stop: 05/18/19 08:59 Last Admin: 04/18/19 08:09 Dose: 5 mg Documented by: Dextrose (Dextrose 50%) 25 - 50 ml IV UD PRN; Protocol PRN Reason: Hypoglycemia Protocol Stop: 05/17/19 17:46 Glucagon (Glucagen) 1 mg SQ UD PRN; Protocol PRN Reason: Hypoglycemia Protocol Stop: 05/17/19 17:46 Glucose (Glucose 40%) 15 - 30 gm PO UD PRN; Protocol PRN Reason: Hypoglycemia Protocol Stop: 05/17/19 17:46 Glucose (Dex4 Glucose) 4 - 8 tabs PO UD PRN; Protocol PRN Reason: Hypoglycemia Protocol Stop: 05/17/19 17:46 Promethazine HCl 12.5 mg/ (Sodium Chloride) 50.5 mls @ 202 mls/hr IV Q6H PRN PRN Reason: Nausea And Vomiting Stop: 05/18/19 00:32 Last Infusion: 04/18/19 02:11 Dose: Infused Documented by: Sodium Chloride (Nss) 250 mls @ 15 mls/hr IV .[id number] PRN PRN Reason: For Transfusion Stop: 04/18/19 16:47 Insulin Aspart (Novolog Flexpen) 0 units SC ACHS [facility] Stop: 05/17/19 17:59 Last Admin: 04/18/19 12:05 Dose: Not Given Documented by: Insulin Glargine (Lantus Solostar Pen) 0 units SC BID [facility]; Protocol Stop: 05/17/19 20:59 Last Admin: 04/18/19 07:42 Dose: 30 units Documented by: Metoclopramide HCl (Reglan) 5 mg IV Q6H PRN PRN Reason: nv Stop: 05/18/19 04:59 Metoprolol Succinate (Toprol Xl) 50 mg PO BID17 [facility] Stop: 05/17/19 17:59 Last Admin: 04/18/19 08:09 Dose: 50 mg Documented by: Miscellaneous (Carbohydrates For Hypoglycemia) 15 - 30 gm PO UD PRN PRN Reason: Hypoglycemia Protocol Stop: 05/17/19 17:46 Oxycodone HCl (Roxicodone Immediate Rel) 5 mg PO Q6H PRN PRN Reason: Pain Stop: 05/01/19 17:46 Last Admin: 04/18/19 03:02 Dose: 5 mg Documented by: Pantoprazole Sodium (Protonix) 40 mg PO BID [facility] Stop: 02/02/20 20:59 Last Admin: 04/18/19 08:09 Dose: 40 mg Documented by: Rifaximin (Xifaxan) 550 mg PO BID [facility] Stop: 05/17/19 20:59 Last Admin: 04/18/19 08:09 Dose: 550 mg Documented by: Torsemide (Demadex) 20 mg PO DAILY [facility] Stop: 05/18/19 08:59 Last Admin: 04/18/19 08:08 Dose: 20 mg Documented by:
--- NOTE | 2019-04-18 12:40 | Electrocardiogram Report ---
Test Reason : Blood Pressure : / mmHG Vent. Rate : 069 BPM Atrial Rate : 069 BPM P-R Int : 178 ms QRS Dur : 150 ms QT Int : 386 ms P-R-T Axes : 037 062 -02 degrees QTc Int : 413 ms Normal sinus rhythm Right bundle branch block Abnormal ECG When compared with ECG of 17-APR-2019 11:23, Sinus rhythm has replaced Atrial fibrillation Vent. rate has decreased BY 65 BPM QRS axis Shifted left Confirmed by Abe Shaikh ([id number]) on 04/18/2019 12:40:13 PM Referred By: REFERRED SELF Confirmed By:Abe Shaikh
[2019-04-18 12:41] LABS: Nucleated RBC # (auto) 0.48 K/uL (0-0); Nucleated RBC % (auto) 7.3 %
[2019-04-18 13:08] LABS: ALC (manual) 0.52 K/uL (1.2-3.4); ANC (manual) 5.79 K/uL (1.4-6.5); Eosinophils # (manual) 0.11 K/uL (0-0.5); Eosinophils % (manual) 1.7 %; Hematocrit (blood only) 27.8 % (37-47); Hemoglobin 8.8 g/dL (12.0-16.0); Lymphocytes # (manual) 0.52 K/uL (1.2-3.4); Lymphocytes % (manual) 7.8 %; Mean Corpuscular Hemoglobin 27.1 pg (25-34); Mean Corpuscular Hgb Conc 31.7 g/dL (32-36); Mean Corpuscular Volume 85.5 fL (80-100); Metamyelocytes # (manual) 0.06 K/uL (0-0); Metamyelocytes % (manual) 0.9 %; Monocytes # (manual) 0.06 K/uL (0.11-0.59); Monocytes % (manual) 0.9 %; Myelocytes # (manual) 0.11 K/uL (0-0); Myelocytes % (manual) 1.7 %; Neutrophils # (manual) 5.79 K/uL (1.4-6.5); Platelet Count 44 K/uL (130-400); RDW Coefficient of Variation 17.4 % (11.5-14.5); RDW Standard Deviation 53.4 fL (36.4-46.3); Red Blood Count 3.25 M/uL (4.2-5.4); White Blood Count 6.65 K/uL (4.8-10.8)
--- NOTE | 2019-04-18 15:54 | Nephrology Progress Note ---
Date of Service April 18, 2019 Assessment & Plan (1) Hypercalcemia: presenting calcium 13.9, ionized1.94; corrects to Ca 15 for her albumin of 2.6. improving today to 12.2 uncorrected -no indication to again repeat PTH, PTHrp, D levels - f/u pending ones -no further lasix/IVF needed -on 04/17 had zometa 4 mg IV slowly over 30 min -daily bmp -will continue calcitonin 320 units bid -pls ensure any dietary supplements are low Ca (2) CKD (chronic kidney disease), stage III: baseline creatinine mid to low 1's. at upper end of her baseline w/ pres enting creatinine of 1.4 on 04/17/19 and remains at baseline -daily bmp -avoid IV contrast unless lifesaving -fluids/diuretics w/ care as below (3) Chronic right-sided congestive heart failure: agree w/ resuming torsemide -daily bmp -will give FR 1.5L (4) Thrombocytopenia: plts chronically in 20-30s since at least january; cause of repeated bleeding episodes and admissions; no relation of this to renal function; relates to CA therapy -monitor cbc and for bleeding -give lasix post transfusions (5) Anemia: hgb 7-8s; not an DEVIKA candidate d/t active cancer. from repeated bleeding episodes and CA therapy presumably. has needed multiple transfusions in past. transfuse prn. monitor cbc Subjective seen on rounds midday; at bedside; pt had platelets adn pRBC this am w/ lasix 40 mg IV; ongoing ooze from her nares; no edema, no sob; bone pain acceptable; no n/v; states she had a panic attack ON but nursing not aw are of this Review of Systems Review of Systems: All systems reviewed & are unremarkable except as noted in HPI & below Physical Exam Constitutional: well developed, well nourished and + obese; no acute distress on 0xymask Eyes: EOM intact bilaterally ENMT: Ears: no external ear abnormality Nose: + foreign body in naris (dressing outside naris w/ dried blood); no external nose abnormality Mouth: + dry oral mucous membranes Neck: no nuchal rigidity Respiratory: normal respiratory effort, + labored breathing, able to speak in complete sentences and + paradoxical thoraco-abdominal movement Auscultation: lungs clear to auscultation bilaterally and + diminished lung sounds Cardiovascular: Rate/Rhythm: regular rate and regular rhythm Extremities: + edema (trace BLE) Gastrointestinal (Abdomen): Inspection/Auscultation: normal bowel sounds Percussion/Palpation: abdomen soft; abdomen nontender, no guarding and no ascites Musculoskeletal: Extremities: + abnormal strength Skin: no rashes, warm and dry Psychiatric: Orientation: alert, oriented to person and oriented to place Affect: + flat affect Insight: + limited insight Judgement: + limited judgement appears a bit confused today Results & Data Vital Signs (Past 12 Hours) Vital Signs Temp Pulse Pulse Resp BP BP Pulse Ox 04/18/19 15:10 36.6 C 69 25 H 142/67 H 93 04/18/19 11:12 36.6 C 72 18 119/72 94 04/18/19 11:00 36.7 C 67 20 117/70 93 04/18/19 10:57 66 20 95 04/18/19 10:00 36.6 C 67 26 H 126/67 98 04/18/19 09:00 36.7 C 67 16 113/69 93 04/18/19 08:30 36.6 C 70 16 121/57 L 93 04/18/19 08:15 36.6 C 68 18 118/63 95 04/18/19 08:00 36.5 C 72 16 117/61 93 04/18/19 07:35 36.5 C 72 16 116/61 95 04/18/19 07:34 36.5 C 72 16 116/61 95 04/18/19 06:34 36.5 C 68 14 116/61 94 04/18/19 06:30 37.1 C 76 22 144/71 H 04/18/19 06:15 37.1 C 75 25 H 121/72 04/18/19 06:04 37.0 C 76 21 119/61 04/18/19 06:02 37.3 C 78 22 120/53 L 93 04/18/19 06:00 75 22 91 04/18/19 05:59 72 25 H 120/55 L 92 04/18/19 05:15 70 22 124/68 97 Laboratory Results 04/18/19 12:22 04/18/19 05:48 (1) Anemia Anemia type: unspecified type Qualified Code(s): D64.9 - Anemia, unspecified
[2019-04-18] MEDS: METOCLOPRAMIDE HCL INJ 5 MG/ML 2 ML VIAL IV PRN (17:03)
[2019-04-18] MEDS: CALCITONIN SALMON 400 UNITS/2 ML SQ SCH (20:29)
[2019-04-19] MEDS: OXYCODONE HCL IR 5 MG TAB (IMMEDIATE RELEASE) PO PRN ×2 (03:02→17:27)
[2019-04-19 06:15] LABS: Mean Corpuscular Hgb Conc 31.6 g/dL (32-36); Nucleated RBC # (auto) 0.25 K/uL (0-0)
[2019-04-19 06:26] LABS: Hematocrit (blood only) 28.5 % (37-47); Mean Corpuscular Volume 85.6 fL (80-100); RDW Coefficient of Variation 17.4 % (11.5-14.5); RDW Standard Deviation 53.7 fL (36.4-46.3); Red Blood Count 3.33 M/uL (4.2-5.4); White Blood Count 5.03 K/uL (4.8-10.8)
[2019-04-19 06:41] LABS: Platelet Count 38 K/uL (130-400)
[2019-04-19 06:43] LABS: Basophils # (auto) 0.03 K/uL (0-0.2); Basophils % (auto) 0.6 %; Eosinophils # (auto) 0.11 K/uL (0-0.5); Eosinophils % (auto) 2.2 %; Immature Granulocytes # (auto) 0.26 K/uL (0.00-0.02); Immature Granulocytes % (auto) 5.2 %; Lymphocytes # (auto) 0.35 K/uL (1.2-3.4); Monocytes # (auto) 0.26 K/uL (0.11-0.59); Monocytes % (auto) 5.2 %; Neutrophils # (auto) 4.02 K/uL (1.4-6.5); Neutrophils % (auto) 79.8 %; Platelet Estimate SIGNIFIC DECREASED (Normal); Polychromasia 1+
[2019-04-19 06:54] LABS: Calcium 11.7 mg/dl (8.5-10.1); Creatinine Clr Calc Pharmacy 56.3 ml/min; Est GFR (African American) 54.1; Est GFR (Non-African American) 46.6; Potassium 3.1 mmol/L (3.5-5.1)
[2019-04-19] MEDS: INSULIN ASPART 100 UNITS/ML 3 ML PEN SC SCH ×4 (08:28→20:11)
[2019-04-19] MEDS: INSULIN GLARGINE SOLOSTAR 100 UNITS/ML 3 ML PEN SC SCH ×2 (08:29→20:19)
[2019-04-19] MEDS: TORSEMIDE 20 MG TAB PO SCH (08:29)
[2019-04-19] MEDS: AMLODIPINE BESYLATE 5 MG TAB PO SCH (08:31)
[2019-04-19] MEDS: PANTOprazole 40 MG TAB PO SCH ×2 (08:31→20:02)
[2019-04-19] MEDS: METOPROLOL SUCC 50MG EXT REL TAB PO SCH ×2 (08:31→17:24)
[2019-04-19] MEDS: RIFAXIMIN 550 MG TABLET PO SCH ×2 (08:32→20:02)
--- NOTE | 2019-04-19 08:52 | Progress Note ---
DATE: 04/19/2019 SUBJECTIVE: Since the patient had her right Merocel placed yesterday, she has had no significant epistaxis and no bloody postnasal drip. She is having some expected discomfort with the pack in place. OBJECTIVE: VITAL SIGNS: This morning she is afebrile and her vital signs are stable. Temperature is 36.5 degrees Celsius, oxygen saturation is 95% on room air. Blood pressure is 129/69, pulse is 73 and respiration rate is 16. HEENT: Her right Merocel sponge is in place. There is only a mild amount of serosanguineous drainage on her nasal drip pad. Oral cavity and oropharynx is completely clear with no evidence of blood clot or bloody postnasal drip. LABORATORY DATA: From yesterday after 1 unit of platelets and 1 unit of packed red blood cells showed that her hematocrit went from 23.9-27.8. Her platelet count went from 26-44. IMPRESSION AND RECOMMENDATIONS: A 63-year-old female with metastatic breast carcinoma and associated thrombocytopenia from her treatment who has had right-sided epistaxis amongst other medical problems as outlined in the chart. She has had no bleeding since the Merocel sponge was placed. My goal is to keep this in for 3-5 days and then remove it once her hematocrit approaches 30 and her platelet count approaches 50. If there is any significant epistaxis prior to those parameters, please do not hesitate to contact me.
[2019-04-19] MEDS ORDERED: POTASSIUM CHLORIDE 20 MEQ TABCR PO STA (09:45)
[2019-04-19] MEDS: CALCITONIN SALMON 400 UNITS/2 ML SQ SCH ×2 (10:02→20:10)
[2019-04-19] MEDS: POTASSIUM CHLORIDE 20 MEQ TABCR PO SCH ×2 (11:43→17:24)
--- NOTE | 2019-04-19 12:50 | Hospitalist Progress Note ---
Date of Service April 19, 2019 Assessment & Plan (1) Epistaxis: Per admitting service notes: Pt is 63 y/o F with PMH metastatic breast cancer to bone, DM II, HTN, HLD, obesity hypoventilation syndrome, chronic respiratory failure on 3 L oxygen, chronic thrombocytopenia, chronic anemia, h/o DVT, chronic right-sided heart failure, RA, atrial fibrillation, epistaxis presented to ER with complaint of epistaxis today. Recent hospitalization 03/24/2019-04/07/2019 for epistaxis, anemia requiring 5 units PRBCs and was seen by Dr Edouard and had Fibrillar Tata duque. Her Eliquis was discontinued and Lovenox started on 04/11/19 and pt's Hgb and Plt were stable without recurrent epistaxis until today -In ER Afrin applied and compression with control of bleeding -Hgb:8.5 (8.5 on 04/07/19), Plt: 32 (33 on 04/07/19) 04/18/[address] Nam Merocel sponge placed in the right nostril Noted to have seepage on the gauze on the nostrils, discussed with Dr. Nam Continue present management, will transfuse platelets to goal around 50,000, transfuse hemoglobin to hematocrit 30 Status post 1 unit of platelets and packed RBC today, hemoglobin improved to 8.8 platelet count 44,000 We will continue to monitor Hold Lovenox or any anticoagulation for now, discussed with sergeant of officers/onc ologist Dr. Light, recommend vascular surgery evaluation for possible IVC filter placement Saturday04/19/2019 No recurrence of epistaxis Globin stable around 9 Platelets 38,000, will order 1 more unit to achieve 50,000 unit Continue to monitor (2) Hypercalcemia: Per admitting service notes Reported some confusion this morning. No current confusion and pt alert and oriented x 3 Corrected calcium 15 for albumin of 2.6, ionized calcium: 1.76 -Prior admission PTH intact: 19.8, PTH related protein is still pending, vitamin D studies still pending -In ER given 750 mL total bolus NSS then ran at 125 ml/hr -Nephrology consult. Spoke with Dr. Madsen, recommends IVF, Zometa, Lasix 40mg. Consider calcitonin if no improvement -Zometa, Lasix 40mg IV, IVF Calcium improving now down to 11 Continue calcitonin 320 units twice daily (3) Atrial fibrillation with rapid ventricular response: Per admitting service notes Atrial fibrillation with rate up to 136 in ER. Patient asymptomatic -In ER Cardizem 10 mg IV bolus followed by Cardizem drip at 2.5 04/18/2019 Atrial fibrillation has resolved, converted to sinus rhythm Off Cardizem drip -Continue metoprolol succinate 50 mg twice daily -Patient not on full anticoagulation secondary to epistaxis, anemia, thrombocytopenia -Appreciate cardiology consultation 04/19/2019 After going to the bedside commode, patient noted to have atrial fibrillation heart rate 90s to 120s, asymptomatic Heart rate improving after that episode Continue metoprolol succinate 50 mg twice daily Monitor closely (4) Chronic respiratory failure: On 3 L oxygen chronically -In ER on 3 L oxygen mask secondary to nasal clip with stable saturations at 96% - 100% -Continue chronic oxygen -Stable today, monitor (5) Hepatic encephalopathy: History of hepatic encephalopathy during recent admission 03/2018. During that admission patient refused further lactulose and rifaximin was added Ammonia: 36 -Continues to be alert oriented x3 -Continue rifaximin -Monitor (6) Anemia: (7) Thrombocytopenia: Chronic anemia. Chronic thrombocytopenia H/H: 8.5/27.5 (Hgb 8.5 on 04/07/2019). PLT: 32 (33 on 04/07/2019) Management per #1 (8) Hypertension: Stable -Continue amlodipine, metoprolol (9) CKD (chronic kidney disease), stage III: Cr: 1.39. Baseline ~1.3 -Monitor renal functions -Avoid nephrotoxic agents when possible (10) Chronic right-sided congestive heart failure: CXR: Cardiomegaly without radiographic evidence of congestive failure. small right pleural effusion and bibasilar atelectasis. 04/06/19 Echo: EF>70%, moderate LVH -Continue Torsemide po daily, urged to use BiPAP while asleep -Monitor I&O's (11) Diabetes mellitus, type II: A1c: 5.8 on 03/25/19 -Basal, bolus insulin -Monitor BSG's (12) History of DVT (deep vein thrombosis): H/O DVT. Was on Eliquis which was discontinued in 03/2018 secondary to epistaxis, severe anemia. Lovenox was started on 04/01/2019 -Hold Lovenox currently -Management per #1 (13) Obesity hypoventilation syndrome: (14) TYE treated with BiPAP: -Continue Bipap HS DVT Prophylaxis -SCDs for now in light of epistaxis, thrombocytopenia Full Code as per discussion with pt Follows with Dr Larry for routine care Subjective Follow-up for epistaxis, weakness Seen resting in bed, on oxygen mask, more comfortable, awake alert, using cell phone States she feels improved compared to yesterday Main complaint is episodes of anxiety, reports she has a history of panic attacks Breathing is improving, urged to use BiPAP with facemask Only has a mild seepage on the gauze over nostril Denies other symptoms Review of Systems Review of Systems: All systems reviewed & are unremarkable except as noted in HPI & below Physical Exam Physical Exam: General- oriented x 3, not in distress, speaks in sentences with no effort or accessory muscle use Eyes- anicteric Nose-gauze in place, mild seepage noted Neck- no JVD Lungs-clear breath sounds bilaterally, no crackles or wheezing Heart- normal rate, regular rhythm; no murmurs Abdomen- normal bowel sounds, nondistended, soft, nontender Extremities- no pretibial edema, no calf tenderness Neuro- alert, oriented x 3; no gross focal neurologic deficits Skin- warm & dry Results & Data Vital Signs (Past 12 Hours) Vital Signs Temp Pulse Resp BP Pulse Ox 04/19/19 11:47 36.7 C 68 18 140/68 94 04/19/19 11:34 94 04/19/19 07:08 36.6 C 74 16 116/67 92 04/19/19 03:23 36.5 C 73 16 129/69 95 Laboratory Results Laboratory Results - last 24 hr 04/17/19 04/18/19 04/19/19 12:09 20:07 05:36 WBC 5.03 RBC 3.33 L Hgb 9.0 L Hct 28.5 L MCV 85.6 MCH 27.0 MCHC 31.6 L RDW Std Deviation 53.7 H RDW Coeff of Flori 17.4 H Plt Count 38 L Immature Gran % (Auto) 5.2 Neut % (Auto) 79.8 Lymph % (Auto) 7.0 [place] % (Auto) 5.2 Eos % (Auto) 2.2 Baso % (Auto) 0.6 Immature Gran # (Auto) 0.26 H Neut # (Auto) 4.02 Lymph # (Auto) 0.35 L [place] # (Auto) 0.26 Eos # (Auto) 0.11 Baso # (Auto) 0.03 Absolute Nucleated RBC 0.25 H Nucleated RBC % (auto) 5.0 Platelet Estimate SIGNIFIC DECREASED Polychromasia 1+ Sodium Potassium Chloride Carbon Dioxide Anion Gap BUN Creatinine Est Cr Clr Drug Dosing Est GFR ( Amer) Est GFR (Non-Af Amer) BUN/Creatinine Ratio Glucose POC Glucose 168 H Calcium Blood Type B Positive Antibody Screen NEGATIVE Crossmatch See Detail 04/19/19 04/19/19 04/19/19 05:36 07:13 11:27 WBC RBC Hgb Hct MCV MCH MCHC RDW Std Deviation RDW Coeff of Flori Plt Count Immature Gran % (Auto) Neut % (Auto) Lymph % (Auto) [place] % (Auto) Eos % (Auto) Baso % (Auto) Immature Gran # (Auto) Neut # (Auto) Lymph # (Auto) [place] # (Auto) Eos # (Auto) Baso # (Auto) Absolute Nucleated RBC Nucleated RBC % (auto) Platelet Estimate Polychromasia Sodium 140 Potassium 3.1 L D Chloride 103 Carbon Dioxide 32 Anion Gap 5.0 BUN 44 H Creatinine 1.23 H Est Cr Clr Drug Dosing 56.3 Est GFR ( Amer) 54.1 Est GFR (Non-Af Amer) 46.6 BUN/Creatinine Ratio 36.0 H Glucose 111 H POC Glucose 123 H 122 H Calcium 11.7 H Blood Type Antibody Screen Crossmatch 04/19/19 16:04 WBC RBC Hgb Hct MCV MCH MCHC RDW Std Deviation RDW Coeff of Flori Plt Count Immature Gran % (Auto) Neut % (Auto) Lymph % (Auto) [place] % (Auto) Eos % (Auto) Baso % (Auto) Immature Gran # (Auto) Neut # (Auto) Lymph # (Auto) [place] # (Auto) Eos # (Auto) Baso # (Auto) Absolute Nucleated RBC Nucleated RBC % (auto) Platelet Estimate Polychromasia Sodium Potassium Chloride Carbon Dioxide Anion Gap BUN Creatinine Est Cr Clr Drug Dosing Est GFR ( Amer) Est GFR (Non-Af Amer) BUN/Creatinine Ratio Glucose POC Glucose 108 H Calcium Blood Type Antibody Screen Crossmatch (1) Anemia Anemia type: unspecified type Qualified Code(s): D64.9 - Anemia, unspecified
--- NOTE | 2019-04-19 15:14 | Communication Note ---
Date of Service: April 19, 2019 Telemetry reviewed: remains in SR in the mid 70s without recurrence of AF.
[2019-04-19] MEDS: METOCLOPRAMIDE HCL INJ 5 MG/ML 2 ML VIAL IV PRN (16:57)
[2019-04-19] MEDS: ACETAMINOPHEN 325 MG TAB PO PRN (20:02)
[2019-04-20] MEDS: OXYCODONE HCL IR 5 MG TAB (IMMEDIATE RELEASE) PO PRN ×3 (04:48→19:50)
--- NOTE | 2019-04-20 06:13 | Progress Note ---
DATE: 04/17/2019 SUBJECTIVE: The patient has had no bleeding over the past 48 hours since the right Merocel pack was placed. Currently, she is sleeping comfortably and I did not disturb her. OBJECTIVE: VITAL SIGNS: She is afebrile and her vital signs are stable. She has a pulse of 92. Her blood pressure is 103/61. Her respiration rate is 23, temperature is 36.5 degrees Celsius, she is satting 98% on 3 liters via facemask. LABORATORY DATA: From this morning is still pending. Her nasal dressing is intact with no blood noted. Her right Merocel pack appears to be in place. IMPRESSION AND RECOMMENDATIONS: A 63-year-old female with metastatic breast carcinoma and thrombocytopenia with right-sided epistaxis that is currently controlled with a right Merocel sponge. Ideally, I would like her platelet count to be 50 and her hematocrit to be 30 prior to removal of the pack. I will continue to monitor her parameters and will remove the pack once these parameters are met and/or 3-5 days has passed.
[2019-04-20 06:36] LABS: Nucleated RBC # (auto) 0.17 K/uL (0-0); Nucleated RBC % (auto) 3.7 %
[2019-04-20 07:12] LABS: Basophils # (auto) 0.02 K/uL (0-0.2); Basophils % (auto) 0.4 %; Eosinophils # (auto) 0.11 K/uL (0-0.5); Eosinophils % (auto) 2.5 %; Hematocrit (blood only) 29.7 % (37-47); Hemoglobin 9.3 g/dL (12.0-16.0); Immature Granulocytes # (auto) 0.23 K/uL (0.00-0.02); Immature Granulocytes % (auto) 5.1 %; Lymphocytes # (auto) 0.47 K/uL (1.2-3.4); Lymphocytes % (auto) 10.5 %; Mean Corpuscular Hemoglobin 26.9 pg (25-34); Mean Corpuscular Hgb Conc 31.3 g/dL (32-36); Mean Corpuscular Volume 85.8 fL (80-100); Monocytes # (auto) 0.45 K/uL (0.11-0.59); Neutrophils % (auto) 71.5 %; Platelet Count 62 K/uL (130-400); Platelet Estimate Decreased (Normal); Polychromasia 1+; RDW Coefficient of Variation 17.7 % (11.5-14.5); RDW Standard Deviation 54.3 fL (36.4-46.3); Red Blood Count 3.46 M/uL (4.2-5.4); Tear Drop Cells 1+; White Blood Count 4.48 K/uL (4.8-10.8)
[2019-04-20 07:24] LABS: BUN Creatinine Ratio 37.4 (10-20); Calcium 10.9 mg/dl (8.5-10.1); Creatinine Clr Calc Pharmacy 58.7 ml/min; Est GFR (African American) 57.4; Est GFR (Non-African American) 49.6
[2019-04-20] MEDS: INSULIN ASPART 100 UNITS/ML 3 ML PEN SC SCH ×4 (07:57→21:05)
[2019-04-20] MEDS: INSULIN GLARGINE SOLOSTAR 100 UNITS/ML 3 ML PEN SC SCH ×2 (08:04→21:05)
[2019-04-20] MEDS: PANTOprazole 40 MG TAB PO SCH ×2 (08:05→21:07)
[2019-04-20] MEDS: RIFAXIMIN 550 MG TABLET PO SCH ×2 (08:05→21:06)
[2019-04-20] MEDS: TORSEMIDE 20 MG TAB PO SCH (08:05)
[2019-04-20] MEDS: POTASSIUM CHLORIDE 20 MEQ TABCR PO SCH ×2 (08:05→17:24)
[2019-04-20] MEDS: AMLODIPINE BESYLATE 5 MG TAB PO SCH (08:05)
[2019-04-20] MEDS: METOPROLOL SUCC 50MG EXT REL TAB PO SCH ×2 (08:05→17:24)
[2019-04-20] MEDS: CALCITONIN SALMON 400 UNITS/2 ML SQ SCH (08:10)
--- NOTE | 2019-04-20 09:46 | Consultation ---
Date of Consultation April 20, 2019 Assessment & Plan (1) History of DVT (deep vein thrombosis): Pt with hx of DVT in BL comm fem veins, according to venous US performed 1 yr ago. Pt noted to have significant thrombocytopenia, which is also likely contributing to epistaxis. OK to stop AC from vascular standpoint. No indications for IVC filter insertion unless pt with acute DVT. Decision whether to restart AC will be left up to medicine/cardiology. Please call if needed. Present on Admission?: Yes History of Present Illness Reason for Consultation: hx DVT, epistaxis Attending Physician: Randy Grace MD History of Present Illness 63 yo f with multiple medical problems, including hx of DVT, DMII, CHF, a fib with RVR, TYE, CKD III, resp failure on oxygen, metastatic breast ca, thrombocytopenia, admitted for multiple concerns after ED visit for epistaxis, seen in consultation today for eval for possible IVC filter. Pt was on AC for DVT, most recently in 03/2018. She was admitted last month for epistaxis and required tranfusion. Her oral AC was stopped at that time, however, she has been on lovenox until this admission. Also noted to have severe thrombocytopenia with plt count as low as 26 in past 1-2 months. Plt 62 today, but were only 32 upon admission. Pt states she is very sedentary at home d/t generalized weakness, obesity, and respiratory problems, but has not noted any new edema or pain in BLE recently. Admits chronic low back pain. Denies HARDEN, fever, chest pain, SOB at rest, abd pain, N/V, rest pain, other complaints. Allergies Allergy/AdvReac Type Severity Reaction Status Date / Time gabapentin AdvReac Hallucinati Verified 04/17/19 13:40 ng Home Medications Home Medications Medication Instructions Recorded Confirmed Type Lantus Solostar U-100 Insulin See Rx Instructions .ROUTE 05/16/18 04/17/19 Rx .COMPLEX #15 ml omeprazole 20 mg PO BID 01/06/19 04/17/19 History torsemide 20 mg PO DAILY PRN 01/06/19 04/17/19 History Novolog Flexpen U-100 Insulin 0 unit SUBCUT UD 03/24/19 04/17/19 History amlodipine [Norvasc] 5 mg PO QAM 30 Days #30 tab 12/24/19 01/03/20 Rx enoxaparin 40 mg SUBCUT Q24H 30 Days #12 ml 04/07/19 04/17/19 Rx metoprolol succinate 50 mg PO BID17 30 Days #30 tab 04/07/19 04/17/19 Rx oxycodone 5 mg PO Q6H #0 tab 04/07/19 04/17/19 Rx rifaximin [Xifaxan] 550 mg PO BID 30 Days #60 tab 04/07/19 04/17/19 Rx Patient History Medical History ATN (acute tubular necrosis) Breast cancer metastasized to bone (Inactive) Chronic kidney disease (Inactive) Chronic right-sided congestive heart failure CKD (chronic kidney disease), stage III Diabetes mellitus, type II Hepatic encephalopathy History of DVT (deep vein thrombosis) Hyperlipidemia (Chronic) Hypertension (Chronic) Irritable bowel syndrome (Chronic) Metastatic breast cancer Obesity hypoventilation syndrome TYE (obstructive sleep apnea) Osteoarthritis (Chronic) Rheumatoid arthritis (Inactive) Rheumatoid arthritis Right-sided heart failure Thrombocytopenia (Chronic) Surgical History History of hernia repair (Chronic) Family History Mother Stroke Diabetes Father Diabetes Social History Preferred Language: Estonian Communication Ability: Effective Visual Impairment: No Limitations Sifting Operator Required: No Beliefs That Will Affect Care: Sikh Sikh Beliefs: Roman Catholic marital status: Current Living Situation: Spouse Other Information That Helps Us Care for You: No Feels Safe at Home: Yes Safety Concerns: Feels Safe At This Time Smoking Status: Never smoker Do You Dip or Chew Tobacco: No ; Second Hand Exposure: No ; Tobacco Cessation Education Requested by Patient: No Hx Alcohol Use: No Hx Substance Use: Yes substance use type: prescription drug Last Used Substance: Unknown Review of Systems Review of Systems: All systems reviewed & are unremarkable except as noted in HPI & below Physical Exam Constitutional: WD/WN, vitals as above + ill appearing, + morbidly obese and + disheveled; not in distress Eyes: PERRL, conjunctivae normal, anicteric sclerae ENMT: Ears: no hearing impairment Nose: no epistaxis (nasal dressing noted, no active bleeding.) Neck: trachea midline, no thyromegaly Respiratory: no respiratory distress Auscultation: + diminished lung sounds and + crackles Cardiovascular: Rate/Rhythm: + irregularly irregular Vessels: brachial pulses present and radial pulses present; + abnormal peripheral pulses Extremities: normal capillary refill and + edema Gastrointestinal (Abdomen): normal bowel sounds, soft, nontender, no hepatosplenomegaly Inspection/Auscultation: + significant pannus Musculoskeletal: no cyanosis or clubbing, extremities motor strength 5/5 Skin: no rashes, warm and dry Neurologic: moves all extremities and awake; no focal motor deficits and not confused Psychiatric: A+Ox3, euthymic affect Results & Data Vital Signs (Past 12 Hours) Vital Signs Temp Pulse Pulse Resp BP Pulse Ox 04/20/19 06:40 36.4 C L 95 H 22 102/74 98 04/20/19 03:50 36.5 C 92 H 23 103/61 98 04/19/19 23:34 36.4 C L 97 H 19 99/65 L 99 04/19/19 22:05 102 H 18 94
--- NOTE | 2019-04-20 10:53 | Hospitalist Progress Note ---
Date of Service April 20, 2019 Assessment & Plan (1) Epistaxis: Per admitting service notes: Pt is 63 y/o F with PMH metastatic breast cancer to bone, DM II, HTN, HLD, obesity hypoventilation syndrome, chronic respiratory failure on 3 L oxygen, chronic thrombocytopenia, chronic anemia, h/o DVT, chronic right-sided heart failure, RA, atrial fibrillation, epistaxis presented to ER with complaint of epistaxis today. Recent hospitalization 03/24/2019-04/07/2019 for epistaxis, anemia requiring 5 units PRBCs and was seen by Dr Edouard and had Fibrillar Tata duque. Her Eliquis was discontinued and Lovenox 40mg SC started on 04/11/19 and pt's Hgb and Plt were stable without recurrent epistaxis until today -In ER Afrin applied and compression with control of bleeding -Hgb:8.5 (8.5 on 04/07/19), Plt: 32 (33 on 04/07/19) 04/18/2019: Evaluated by Dr. Nam-ENT Merocel sponge placed in the right nostril Noted to have seepage on the gauze on the nostrils, discussed with Dr. Nam Continue present management, will transfuse platelets to goal around 50,000, transfuse hemoglobin to hematocrit 30 Hold Lovenox or any anticoagulation for now, discussed with cane splicer/oncologist Dr. Light, recommend vascular surgery evaluation for possible IVC filter placement No recurrence of epistaxis since admission 2 Units of platelets transfused 2 4, now platelets 60,000 1 unit of packed RBCs transfused, hemoglobin remained stable around 9 Vascular surgery service consulted, does not recommend IVC filter placement unless patient has an acute DVT Continue to monitor Hold Lovenox or any anticoagulation Maintain platelets around 50,000 (2) Hypercalcemia: Per admitting service notes Reported some confusion this morning. No current confusion and pt alert and oriented x 3 Corrected calcium 15 for albumin of 2.6, ionized calcium: 1.76 -Prior admission PTH intact: 19.8, PTH related protein is still pending, vitamin D studies still pending -In ER given 750 mL total bolus NSS then ran at 125 ml/hr -Nephrology consult. Spoke with Dr. Madsen, recommends IVF, Zometa, Lasix 40mg. Calcium improving from 15 now down to 10.9 Continue calcitonin 320 units twice daily Nephrology on board Usually on Xgeva right on hold secondary to thrombocytopenia and anemia (3) Atrial fibrillation with rapid ventricular response: Per admitting service notes Atrial fibrillation with rate up to 136 in ER. Patient asymptomatic -In ER Cardizem 10 mg IV bolus followed by Cardizem drip at 2.5, discontinued after patient converted to normal sinus rhythm Has episodes of intermittent A. fib in RVR -Continue metoprolol succinate 50 mg twice daily -Patient not on full anticoagulation secondary to epistaxis, anemia, thrombocytopenia (4) Chronic respiratory failure: On 3 L oxygen chronically -In ER on 3 L oxygen mask secondary to nasal clip with stable saturations at 96% - 100% -Continue chronic oxygen -Stable today, monitor (5) Hepatic encephalopathy: History of hepatic encephalopathy during recent admission 03/2018. During that admission patient refused further lactulose and rifaximin was added Ammonia: 36 -Continues to be alert oriented x3 -Continue rifaximin, does not tolerate lactulose -Monitor (6) Anemia: (7) Thrombocytopenia: Chronic anemia. Chronic thrombocytopenia Management per #1 (8) Hypertension: Stable -Continue amlodipine, metoprolol (9) CKD (chronic kidney disease), stage III: Cr: 1.39. Baseline ~1.3 -Monitor renal functions -Avoid nephrotoxic agents when possible (10) Chronic right-sided congestive heart failure: CXR: Cardiomegaly without radiographic evidence of congestive failure. small right pleural effusion and bibasilar atelectasis. 04/06/19 Echo: EF>70%, moderate LVH -Continue Torsemide po daily, urged to use BiPAP while asleep -Monitor I&O's (11) Diabetes mellitus, type II: A1c: 5.8 on 03/25/19 -Basal, bolus insulin -Monitor BSG's (12) History of DVT (deep vein thrombosis): H/O DVT. Was on Eliquis which was discontinued in 03/2018 secondary to epistaxis, severe anemia. Lovenox was started on 04/01/2019 -Hold Lovenox 40mg SC daily -Management per #1 (13) Obesity hypoventilation syndrome: (14) TYE treated with BiPAP: -Continue Bipap HS DVT Prophylaxis -SCDs for now in light of epistaxis, thrombocytopenia Full Code as per discussion with pt Disposition Patient and now agreeable to be transition to rehab or shelter facility upon discharge Follows with Dr Larry for routine care Subjective Follow-up for epistaxis and weakness Seen resting in bed, comfortable, on oxygen mask at 2 L States she feels improved today compared to yesterday Only tolerated BiPAP overnight hours last night Reports breathing is also improved, no dyspnea today No recurrence of epistaxis since admission, seepage on gauze over nostrils continue to improve No other symptoms Review of Systems Review of Systems: All systems reviewed & are unremarkable except as noted in HPI & below Physical Exam Physical Exam: General- oriented x 3, not in distress, speaks in sentences with no effort or accessory muscle use Eyes- anicteric Nose-was in place, mild seepage noted Neck- no JVD Lungs- clear breath sounds bilaterally, no rales/wheezes Heart- normal rate, regular rhythm; no murmurs Abdomen- normal bowel sounds, nondistended, soft, nontender Extremities- no pretibial edema, no calf tenderness Neuro- alert, oriented x 3; no gross focal neurologic deficits Skin- warm & dry Results & Data Vital Signs (Past 12 Hours) Vital Signs Temp Pulse Resp BP Pulse Ox 04/20/19 06:40 36.4 C L 95 H 22 102/74 98 04/20/19 03:50 36.5 C 92 H 23 103/61 98 04/19/19 23:34 36.4 C L 97 H 19 99/65 L 99 Laboratory Results Laboratory Results - last 24 hr 04/20/19 04/20/19 04/20/19 06:03 06:03 06:42 WBC 4.48 L RBC 3.46 L Hgb 9.3 L Hct 29.7 L MCV 85.8 MCH 26.9 MCHC 31.3 L RDW Std Deviation 54.3 H RDW Coeff of Flori 17.7 H Plt Count 62 L D Immature Gran % (Auto) 5.1 Neut % (Auto) 71.5 Lymph % (Auto) 10.5 [place] % (Auto) 10.0 Eos % (Auto) 2.5 Baso % (Auto) 0.4 Immature Gran # (Auto) 0.23 H Neut # (Auto) 3.20 Lymph # (Auto) 0.47 L [place] # (Auto) 0.45 Eos # (Auto) 0.11 Baso # (Auto) 0.02 Absolute Nucleated RBC 0.17 H Nucleated RBC % (auto) 3.7 Platelet Estimate Decreased L Polychromasia 1+ Tear Drop Cells 1+ Sodium 141 Potassium 4.0 D Chloride 103 Carbon Dioxide 33 H Anion Gap 5.0 BUN 44 H Creatinine 1.17 Est Cr Clr Drug Dosing 58.7 Est GFR ( Amer) 57.4 Est GFR (Non-Af Amer) 49.6 BUN/Creatinine Ratio 37.4 H Glucose 65 L POC Glucose 70 Calcium 10.9 H 04/20/19 04/20/19 04/20/19 07:21 07:21 07:51 WBC RBC Hgb Hct MCV MCH MCHC RDW Std Deviation RDW Coeff of Flori Plt Count Immature Gran % (Auto) Neut % (Auto) Lymph % (Auto) [place] % (Auto) Eos % (Auto) Baso % (Auto) Immature Gran # (Auto) Neut # (Auto) Lymph # (Auto) [place] # (Auto) Eos # (Auto) Baso # (Auto) Absolute Nucleated RBC Nucleated RBC % (auto) Platelet Estimate Polychromasia Tear Drop Cells Sodium Potassium Chloride Carbon Dioxide Anion Gap BUN Creatinine Est Cr Clr Drug Dosing Est GFR ( Amer) Est GFR (Non-Af Amer) BUN/Creatinine Ratio Glucose POC Glucose 68 L* 68 L* 74 Calcium 04/20/19 04/20/19 04/20/19 11:18 16:20 20:34 WBC RBC Hgb Hct MCV MCH MCHC RDW Std Deviation RDW Coeff of Flori Plt Count Immature Gran % (Auto) Neut % (Auto) Lymph % (Auto) [place] % (Auto) Eos % (Auto) Baso % (Auto) Immature Gran # (Auto) Neut # (Auto) Lymph # (Auto) [place] # (Auto) Eos # (Auto) Baso # (Auto) Absolute Nucleated RBC Nucleated RBC % (auto) Platelet Estimate Polychromasia Tear Drop Cells Sodium Potassium Chloride Carbon Dioxide Anion Gap BUN Creatinine Est Cr Clr Drug Dosing Est GFR ( Amer) Est GFR (Non-Af Amer) BUN/Creatinine Ratio Glucose POC Glucose 74 81 97 Calcium (1) Anemia Anemia type: unspecified type Qualified Code(s): D64.9 - Anemia, unspecified
--- NOTE | 2019-04-20 11:52 | Nephrology Progress Note ---
Date of Service April 20, 2019 Assessment & Plan (1) Hypercalcemia: presenting calcium 13.9, ionized1.94; corrects to Ca 15 for her albumin of 2.6. improving today to 10.9 uncorrected -no indication to again repeat PTH, PTHrp, D levels - f/u pending ones -no further lasix/IVF needed -on 04/17 had zometa 4 mg IV slowly over 30 min -daily bmp -will stop calcitonin 320 units bid -pls ensure any dietary supplements are low Ca -will sign off; pls call if ? (2) CKD (chronic kidney disease), stage III: baseline creatinine mid to low 1's. at upper end of her baseline w/ presenting creatinine of 1.4 on 04/17/19 and remains at baseline -daily bmp -avoid IV contrast unless lifesaving -fluids/diuretics w/ care as below (3) Chronic right-sided congestive heart failure: cont OP torsemide -daily bmp -will give FR 1.5L (4) Thrombocytopenia: plts chronically in 20-30s since at least january; cause of repeated bleeding episodes and admissions; no relation of this to renal function; relates to CA therapy; actually in low 60s 04/20 which is best for her in months -monitor cbc and for bleeding -give lasix post transfusions (5) Anemia: hgb 7-8s; not an DEVIKA candidate d/t active cancer. from repeated bleeding episodes and CA therapy presumably. has needed multiple transfusions in past. transfuse prn. monitor cbc Subjective seen on rounds 0810; no sob, no edema; pain borderline controlled; moving bowels; tired; no F Review of Systems Review of Systems: All systems reviewed & are unremarkable except as noted in HPI & below Physical Exam Constitutional: well developed, well nourished and + obese; no acute distress (w/ oxymask) Eyes: EOM intact bilaterally ENMT: Ears: no external ear abnormality Nose: + external nose abnormality (dressing applied to nares BL) Mouth: + dry oral mucous membranes Neck: no nuchal rigidity Respiratory: normal respiratory effort Auscultation: lungs clear to a uscultation bilaterally and + diminished lung sounds Cardiovascular: Rate/Rhythm: regular rhythm and + tachycardic Extremities: + edema (trace BLE) Gastrointestinal (Abdomen): Inspection/Auscultation: normal bowel sounds Percussion/Palpation: abdomen soft; abdomen nontender, no guarding and no ascites Musculoskeletal: Extremities: + abnormal strength Skin: no rashes, warm and dry Psychiatric: Orientation: alert and oriented x 3 Speech: normal ra te/rhythm/volume of speech Affect: + flat affect Insight: + limited insight Judgement: + limited judgement Genitourinary: courtney w/ ample clear urine Results & Data Vital Signs (Past 12 Hours) Vital Signs Temp Pulse Pulse Resp BP Pulse Ox 04/20/19 11:46 36.5 C 95 H 20 102/74 92 04/20/19 11:09 93 H 04/20/19 06:40 36.4 C L 95 H 22 102/74 98 04/20/19 03:50 36.5 C 92 H 23 103/61 98 Laboratory Results 04/20/19 06:03 04/20/19 06:03 (1) Anemia Anemia type: unspecified type Qualified Code(s): D64.9 - Anemia, unspecified
--- NOTE | 2019-04-20 12:58 | Psychiatric Consultation ---
Date of Consultation April 20, 2019 Impression / Recommendations Impression anxiety and depressive disorders related to GMC, would avoid benzos given respiratory status, would avoid antihistamines given recent encephalopathy, would avoid sleep aides as chronic sleep issues and can interact with pain meds. Given past trials (including Neurontin) and inability to start SSRI given bleeding risk currently, suggested prn Buspar 2.5 mg BID, can be increased as tolerated prn anxiety. She declines outpatient therapy referrals and there is no indication for inpatient psychiatric hospitalization. Risk Factors Assessment Do You Have Access To A Gun?: No Psych History Identifying Data 63 yo female seen by consult service during Jan 2019 hospitalization for anxiety and depression, admit for epistaxis and ongoing breathing difficulties related to chronic medical conditions. Current consult is by Dr. Grace for panic. Chief Complaint "I've always been a night owl and always take care of everyone". History of Present Illness per medical: Pt is 63 y/o F with PMH metastatic breast cancer to bone, DM II, HTN, HLD, obesity hypoventilation syndrome, chronic respiratory failure on 3 L oxygen, chronic thrombocytopenia, chronic anemia, h/o DVT, chronic right-sided heart failure, RA, atrial fibrillation, epistaxis. Patient with recent hospitalization 03/24/2019-04/07/2019 for hypoxia, epistaxis, anemia requiring 5 units PRBCs, new onset atrial fibrillation RVR, thrombocytopenia, hepatic encephalopathy. During that admission patient became hypercapnic and required intubation. Patient denied home health/SNF/rehab upon discharge. states that she is homesick as never been in the hospital so much and that Dec was difficult as anniversary of her mother and dog's . Her health continues to deteroriate and sometimes now she wakes up at night somewhat disoriented with her mask and somewhat panicky to catch her breath. Med changes since last admit include apparent d/c of Cymbalta and Ativan. Past Psychiatric History Current Psychiatric Diagnosis: unspecified anxiety and depression Previous Psych Admissions: none Do You Have Access To A Gun?: No History of Previous Suicide Attempt: No Past Medication Trials: Cymbalta, Ativan, Vistaril, Gabapentin Allergies Allergy/AdvReac Type Severity Reaction Status Date / Time gabapentin AdvReac Hallucinati Verified 04/17/19 13:40 ng Home Medications Home Medications Medication Instructions Recorded Confirmed Type Lantus Solostar U-100 Insulin See Rx Instructions .ROUTE 05/16/18 04/17/19 Rx .COMPLEX #15 ml omeprazole 20 mg PO BID 01/06/19 04/17/19 History torsemide 20 mg PO DAILY PRN 01/06/19 04/17/19 History Novolog Flexpen U-100 Insulin 0 unit SUBCUT UD 03/24/19 04/17/19 History amlodipine [Norvasc] 5 mg PO QAM 30 Days #30 tab 04/07/19 04/17/19 Rx enoxaparin 40 mg SUBCUT Q24H 30 Days #12 ml 04/07/19 04/17/19 Rx metoprolol succinate 50 mg PO BID17 30 Days #30 tab 04/07/19 04/17/19 Rx oxycodone 5 mg PO Q6H #0 tab 04/07/19 04/17/19 Rx rifaximin [Xifaxan] 550 mg PO BID 30 Days #60 tab 04/07/19 04/17/19 Rx Family History denied mental health hx Substance Abuse History denied Personal History Highest Grade Completed: Vocational Training ([employer]) Employment Status: Retired Marital Status: Beliefs That Will Affect Care: Yarsani History of Legal Problems: denied Psychological Trauma History Comment: denied though recalls medical treatments/intubation Patient History Medical History ATN (acute tubular necrosis) Breast cancer metastasized to bone (Inactive) Chronic kidney disease (Inactive) Chronic right-sided congestive heart failure CKD (chronic kidney disease), stage III Diabetes mellitus, type II Hepatic encephalopathy History of DVT (deep vein thrombosis) Hyperlipidemia (Chronic) Hypertension (Chronic) Irritable bowel syndrome (Chronic) Metastatic breast cancer Obesity hypoventilation syndrome TYE (obstructive sleep apnea) Osteoarthritis (Chronic) Rheumatoid arthritis (Inactive) Rheumatoid arthritis Right-sided heart failure Thrombocytopenia (Chronic) Surgical History History of hernia repair (Chronic) Family History Mother Stroke Diabetes Father Diabetes Social History Preferred Language: Maltese Communication Ability: Effective Visual Impairment: No Limitations Learning Developer Required: No Beliefs That Will Affect Care: Yarsani Yarsani Beliefs: Hindu marital status: Current Living Situation: Spouse Other Information That Helps Us Care for You: No Feels Safe at Home: Yes Safety Concerns: Feels Safe At This Time Smoking Status: Never smoker Do You Dip or Chew Tobacco: No ; Second Hand Exposure: No ; Tobacco Cessation Education Requested by Patient: No Hx Alcohol Use: No Hx Substance Use: Yes substance use type: prescription drug Last Used Substance: Unknown Physical Exam Psychiatric: Orientation: alert Apperance: appropriately groomed Eye Contact: + fair eye contact Speech: normal rate/rhythm/volume of speech Affect: + depressed affect Mood: + anxious mood Thought Process: goal directed thought process Thought Content: reality based without delusions Suicidal Thoughts: denies suicidal thoughts Homicidal Thoughts: denies homicidal thoughts Hallucinations: no auditory hallucinations and no visual hallucinations Insight: + fair insight Judgement: + fair judgement Vital Signs (Past 24 Hours): Last Vital Signs Temp 36.5 C 04/20/19 11:46 Pulse 95 H 04/20/19 11:46 Resp 20 04/20/19 11:46 BP 102/74 04/20/19 11:46 Pulse Ox 92 04/20/19 11:46 Review of Systems All systems reviewed & are unremarkable except as noted in HPI & below Results & Data Medications Administered Acetaminophen (Tylenol) 650 mg PO Q4H PRN PRN Reason: Pain or Fever Stop: 05/17/19 17:46 Last Admin: 04/19/19 20:02 Dose: 650 mg Documented by: [id number] Admin: 04/18/19 06:14 Dose: 650 mg Documented by: [id number] Amlodipine Besylate (Norvasc) 5 mg PO QAM [facility] Stop: 05/18/19 08:59 Last Admin: 04/20/19 08:05 Dose: 5 mg Documented by: [id number] Admin: 04/19/19 08:31 Dose: 5 mg Documented by: [id number] Admin: 04/18/19 08:09 Dose: 5 mg Documented by: [id number] Buspirone HCl (Buspar) 5 mg PO BID PRN PRN Reason: Anxiety Stop: 05/19/19 20:59 Last Admin: 04/20/19 08:04 Dose: 5 mg Documented by: [id number] Admin: 04/19/19 20:23 Dose: 5 mg Documented by: [id number] Promethazine HCl 12.5 mg/ (Sodium Chloride) 50.5 mls @ 202 mls/hr IV Q6H PRN PRN Reason: Nausea And Vomiting Stop: 05/18/19 00:32 Last Infusion: 04/18/19 02:11 Dose: 0 mls/hr Documented by: [id number] Admin: 04/18/19 01:29 Dose: 202 mls/hr Documented by: [id number] Insulin Aspart (Novolog Flexpen) 0 units SC ACHS ADEBAYO Stop: 05/17/19 17:59 Last Admin: 04/20/19 11:53 Dose: Not Given Documented by: [id number] Cosigned by: [id number] Admin: 04/20/19 07:57 Dose: 2 units Documented by: [id number] Cosigned by: [id number] Admin: 04/19/19 20:11 Dose: Not Given Documented by: [id number] Cosigned by: [id number] Admin: 04/19/19 17:23 Dose: Not Given Documented by: [id number] Cosigned by: [id number] Admin: 04/19/19 11:43 Dose: Not Given Documented by: [id number] Cosigned by: [id number] Admin: 04/19/19 08:28 Dose: Not Given Documented by: [id number] Cosigned by: [id number] Admin: 04/18/19 20:30 Dose: 1 units Documented by: [id number] Cosigned by: [id number] Admin: 04/18/19 17:55 Dose: Not Given Documented by: [id number] Cosigned by: [id number] Admin: 04/18/19 12:05 Dose: Not Given Documented by: [id number] Cosigned by: [id number] Admin: 04/18/19 07:41 Dose: 2 units Documented by: [id number] Cosigned by: [id number] Admin: 04/17/19 20:58 Dose: Not Given Documented by: [id number] Cosigned by: [id number] Admin: 04/17/19 18:35 Dose: Not Given Documented by: [id number] Cosigned by: [id number] Insulin Glargine (Lantus Solostar Pen) 0 units SC BID ADEBAYO; Protocol Stop: 05/17/19 20:59 Last Admin: 04/20/19 08:04 Dose: Not Given Documented by: [id number] Cosigned by: [id number] Admin: 04/19/19 20:19 Dose: Not Given Documented by: [id number] Cosigned by: [id number] Admin: 04/19/19 08:29 Dose: 24 units Documented by: [id number] Cosigned by: [id number] Admin: 04/18/19 20:31 Dose: 30 units Documented by: [id number] Cosigned by: [id number] Admin: 04/18/19 07:42 Dose: 30 units Documented by: [id number] Cosigned by: [id number] Admin: 04/17/19 20:57 Dose: 24 units Documented by: [id number] Cosigned by: [id number] Metoclopramide HCl (Reglan) 5 mg IV Q6H PRN PRN Reason: nv Stop: 05/18/19 04:59 Last Admin: 04/19/19 16:57 Dose: 5 mg Documented by: [id number] Admin: 04/18/19 17:03 Dose: 5 mg Documented by: [id number] Metoprolol Succinate (Toprol Xl) 50 mg PO BID17 ADEBAYO Stop: 05/17/19 17:59 Last Admin: 04/20/19 08:05 Dose: 50 mg Documented by: [id number] Admin: 04/19/19 17:24 Dose: 50 mg Documented by: [id number] Admin: 04/19/19 08:31 Dose: 50 mg Documented by: [id number] Admin: 04/18/19 17:56 Dose: 50 mg Documented by: [id number] Admin: 04/18/19 08:09 Dose: 50 mg Documented by: [id number] Admin: 04/17/19 20:58 Dose: 50 mg Documented by: [id number] Miscellaneous (Carbohydrates For Hypoglycemia) 15 - 30 gm PO UD PRN PRN Reason: Hypoglycemia Protocol Stop: 05/17/19 17:46 Last Admin: 04/20/19 07:46 Dose: 15 gm Documented by: [id number] Oxycodone HCl (Roxicodone Immediate Rel) 5 mg PO Q6H PRN PRN Reason: Pain Stop: 05/01/19 17:46 Last Admin: 04/20/19 04:48 Dose: 5 mg Documented by: [id number] Admin: 04/19/19 17:27 Dose: 5 mg Documented by: [id number] Admin: 04/19/19 03:02 Dose: 5 mg Documented by: [id number] Admin: 04/18/19 20:14 Dose: 5 mg Documented by: [id number] Admin: 04/18/19 13:34 Dose: 5 mg Documented by: [id number] Admin: 04/18/19 03:02 Dose: 5 mg Documented by: [id number] Admin: 04/17/19 18:35 Dose: 5 mg Documented by: [id number] Pantoprazole Sodium (Protonix) 40 mg PO BID ADE[facility] Stop: 05/17/19 20:59 Last Admin: 04/20/19 08:05 Dose: 40 mg Documented by: [id number] Admin: 04/19/19 20:02 Dose: 40 mg Documented by: [id number] Admin: 04/19/19 08:31 Dose: 40 mg Documented by: [id number] Admin: 04/18/19 20:29 Dose: 40 mg Documented by: [id number] Admin: 04/18/19 08:09 Dose: 40 mg Documented by: [id number] Admin: 04/17/19 20:59 Dose: 40 mg Documented by: [id number] Potassium Chloride (Klor-Con M20) 20 meq PO BIDM ADEBAYO Stop: 05/19/19 11:59 Last Admin: 04/20/19 08:05 Dose: 20 meq Documented by: [id number] Admin: 04/19/19 17:24 Dose: 20 meq Documented by: [id number] Admin: 04/19/19 11:43 Dose: 20 meq Documented by: [id number] Rifaximin (Xifaxan) 550 mg PO BID ADE[facility] Stop: 05/17/19 20:59 Last Admin: 04/20/19 08:05 Dose: 550 mg Documented by: [id number] Admin: 04/19/19 20:02 Dose: 550 mg Documented by: [id number] Admin: 04/19/19 08:32 Dose: 550 mg Documented by: [id number] Admin: 04/18/19 20:29 Dose: 550 mg Documented by: [id number] Admin: 04/18/19 08:09 Dose: 550 mg Documented by: [id number] Admin: 04/17/19 20:58 Dose: 550 mg Documented by: [id number] Torsemide (Demadex) 20 mg PO DAILY [facility] Stop: 05/18/19 08:59 Last Admin: 04/20/19 08:05 Dose: 20 mg Documented by: [id number] Admin: 04/19/19 08:29 Dose: 20 mg Documented by: [id number] Admin: 04/18/19 08:08 Dose: 20 mg Documented by: [id number] Coding Level of Care Code 97141 [facility] Lvl 2
--- NOTE | 2019-04-20 14:49 | Electrocardiogram Report ---
Test Reason : Blood Pressure : / mmHG Vent. Rate : 089 BPM Atrial Rate : 091 BPM P-R Int : 000 ms QRS Dur : 142 ms QT Int : 382 ms P-R-T Axes : 000 070 -07 degrees QTc Int : 464 ms Atrial fibrillation Right bundle branch block Abnormal ECG When compared with ECG of 17-APR-2019 15:59, Atrial fibrillation has replaced Sinus rhythm Confirmed by Abe Shaikh ([id number]) on 04/20/2019 2:48:45 PM Referred By: REFERRED SELF Confirmed By:Abe Shaikh
[2019-04-20] MEDS: ACETAMINOPHEN 325 MG TAB PO PRN ×2 (15:58→23:31)
--- NOTE | 2019-04-20 17:16 | Cardiology Progress Note ---
Date of Service April 20, 2019 Assessment & Plan (1) Atrial fibrillation with RVR: (2) Epistaxis: Paroxysmal atrial fibrillation with right bundle branch block morphology, epistaxis, severe anemia, with stable hemoglobin status post transfusion this admission. She has a history of chronic right heart failure, fine status is currently stable on her chronic torsemide dose. Continue metoprolol succinate 50 mg twice daily. As noted previously, not a candidate for anticoagulant for stroke prophylaxis given epistaxis and anemia. Subjective Patient seen in follow-up today. Upon review of telemetry, on 04/19/2019 at 1537 she reverted from sinus rhythm back to atrial fibrillation. At present, rates have been relatively well controlled in the range of 80 to 99 bpm. She is sitting in the bedside chair. She is much more comfortable than when I saw her 2 days ago. Her nose is still oozing, but overall improved. Physical Exam Physical Exam: Temp Pulse Resp BP Pulse Ox 36.5 C 106 H 21 101/73 99 04/20/19 15:17 04/20/19 15:17 04/20/19 15:17 04/20/19 15:17 04/20/19 15:17 Constitutional: Chronically ill in appearance without acute distress Respiratory: normal respiratory effort, lungs clear to auscultation Cardiovascular: Rate/Rhythm: + irregularly irregular Heart Sounds: no murmur Vessels: no JVD Extremities: no edema Gastrointestinal (Abdomen): normal bowel sounds, soft, nontender, no hepatosplenomegaly Results & Data Vital Signs (Past 12 Hours) Vital Signs Temp Pulse Pulse Resp BP Pulse Ox 04/20/19 15:17 36.5 C 106 H 21 101/73 99 04/20/19 14:52 93 04/20/19 11:46 36.5 C 95 H 20 102/74 92 04/20/19 11:09 93 H 04/20/19 06:40 36.4 C L 95 H 22 102/74 98 Laboratory Results CBC 04/20/19 Range/Units 06:03 WBC 4.48 L (4.8-10.8) K/uL RBC 3.46 L (4.2-5.4) M/uL Hgb 9.3 L (12.0-16.0) g/dL Hct 29.7 L (37-47) % Plt Count 62 L D (130-400) K/uL Neut # (Auto) 3.20 (1.4-6.5) K/uL Lymph # (Auto) 0.47 L (1.2-3.4) K/uL [place] # (Auto) 0.45 (0.11-0.59) K/uL Eos # (Auto) 0.11 (0-0.5) K/uL Baso # (Auto) 0.02 (0-0.2) K/uL Comprehensive Metabolic Panel 04/20/19 Range/Units 06:03 Sodium 141 (136-145) mmol/L Potassium 4.0 D (3.5-5.1) mmol/L Chloride 103 (98-107) mmol/L Carbon Dioxide 33 H (21-32) mmol/L BUN 44 H (7-18) mg/dl Creatinine 1.17 (0.6-1.2) mg/dl Glucose 65 L (70-99) mg/dl Calcium 10.9 H (8.5-10.1) mg/dl Intake and Output 04/20/19 04/20/19 04/20/19 06:59 14:59 22:59 Intake Total 350 / 1377 400 / 400 Output Total 375 / 2425 650 / 650 Balance -25 / -1048 -250 / -250 Intake: Oral 350 / 1030 400 / 400 Output: Urine Amount (Catheter) 375 / 2425 650 / 650 Ta/Indwelling 375 / 2425 650 / 650 Other: Weight 103.3 kg
[2019-04-21] MEDS: OXYCODONE HCL IR 5 MG TAB (IMMEDIATE RELEASE) PO PRN ×4 (01:53→23:38)
[2019-04-21 06:22] LABS: Mean Corpuscular Hgb Conc 32.2 g/dL (32-36); Nucleated RBC # (auto) 0.26 K/uL (0-0); Nucleated RBC % (auto) 5.7 %
[2019-04-21 06:34] LABS: Hematocrit (blood only) 30.4 % (37-47); Hemoglobin 9.8 g/dL (12.0-16.0); Mean Corpuscular Hemoglobin 27.4 pg (25-34); Mean Corpuscular Volume 84.9 fL (80-100); RDW Coefficient of Variation 17.8 % (11.5-14.5); RDW Standard Deviation 54.4 fL (36.4-46.3); Red Blood Count 3.58 M/uL (4.2-5.4); White Blood Count 4.63 K/uL (4.8-10.8)
[2019-04-21 06:47] LABS: Calcium 9.7 mg/dl (8.5-10.1); Creatinine Clr Calc Pharmacy 50.1 ml/min; Est GFR (African American) 47.5; Est GFR (Non-African American) 40.9; Potassium 3.9 mmol/L (3.5-5.1)
[2019-04-21 06:49] LABS: Platelet Count 54 K/uL (130-400)
[2019-04-21 06:50] LABS: Basophils # (auto) 0.04 K/uL (0-0.2); Basophils % (auto) 0.9 %; Eosinophils % (auto) 4.3 %; Immature Granulocytes # (auto) 0.23 K/uL (0.00-0.02); Lymphocytes # (auto) 0.58 K/uL (1.2-3.4); Lymphocytes % (auto) 12.5 %; Monocytes # (auto) 0.37 K/uL (0.11-0.59); Neutrophils # (auto) 3.21 K/uL (1.4-6.5); Neutrophils % (auto) 69.3 %; Platelet Estimate SIGNIFIC DECREASED (Normal); Polychromasia 1+
--- NOTE | 2019-04-21 07:26 | Progress Note ---
DATE: 04/21/2019 HISTORY OF PRESENT ILLNESS: The patient was seen at her bedside this morning. She is awake and alert and denies any further epistaxis since the pack was placed. Laboratory examination from yesterday revealed that her hematocrit came up nicely to 29.7 and her platelet count came up nicely to 62. Therefore, I removed her right Merocel pack. She had some mild excoriation of her right septum as expected. After administration of topical lidocaine and Afrin to the right nasal cavity, silver nitrate was used to cauterize the excoriated areas involving the right anterior and mid septum as well as the posterior aspect of the right inferior turbinate. Of note, the patient does have mild to moderate right septal deviation. PHYSICAL EXAMINATION: VITAL SIGNS: She is afebrile and her vital signs are stable this morning. She has a temperature of 36.4 degrees Celsius. Her pulse is 98. Her blood pressure is 104/70. Respiration rate is 16. She is satting 96% on 3 liters via facemask. IMPRESSION AND RECOMMENDATIONS: A 63-year-old female with right-sided epistaxis who has had a nice correction of hematocrit and platelet count and therefore I removed her right Merocel sponge. I did perform nasal cautery. She was counseled on the conservative prevention and treatment of epistaxis. If she develops further epistaxis, please try Afrin and direct pressure first. If she has uncontrollable bleeding despite these measures, then please do not hesitate to contact me. I will sign off on this patient for now, but if there are any problems, please do not hesitate to contact me once again.
[2019-04-21] MEDS: INSULIN ASPART 100 UNITS/ML 3 ML PEN SC SCH ×4 (08:01→21:08)
[2019-04-21] MEDS: INSULIN GLARGINE SOLOSTAR 100 UNITS/ML 3 ML PEN SC SCH ×2 (08:02→21:08)
[2019-04-21] MEDS: TORSEMIDE 20 MG TAB PO SCH (08:03)
[2019-04-21] MEDS: AMLODIPINE BESYLATE 5 MG TAB PO SCH (08:03)
[2019-04-21] MEDS: POTASSIUM CHLORIDE 20 MEQ TABCR PO SCH ×2 (08:03→17:09)
[2019-04-21] MEDS: RIFAXIMIN 550 MG TABLET PO SCH ×2 (08:04→20:07)
[2019-04-21] MEDS: METOPROLOL SUCC 50MG EXT REL TAB PO SCH ×2 (08:04→17:08)
[2019-04-21] MEDS: PANTOprazole 40 MG TAB PO SCH ×2 (08:04→20:07)
[2019-04-21] MEDS: PROMETHAZINE HCL 12.5 MG in SODIUM CHLORIDE 0.9% 50 ML IV PRN (19:16)
--- NOTE | 2019-04-21 19:43 | Hospitalist Progress Note ---
Date of Service April 21, 2019 Assessment & Plan (1) Epistaxis: -Pt is 63 y/o F with PMH metastatic breast cancer to bone, DM II, HTN, HLD, obesity hypoventilation syndrome, chronic respiratory failure on 3 L oxygen, chronic thrombocytopenia, chronic anemia, h/o DVT, chronic right-sided heart failure, RA, atrial fibrillation, epistaxis presented to ER with complaint of epistaxis today. Recent hospitalization 03/24/2019-04/07/2019 for epistaxis, anemia requiring 5 units PRBCs and was seen by Dr Edouard and had Rivka duque. Her Eliquis was discontinued and Lovenox 40mg SC started on 04/11/19 and pt's Hgb and Plt were stable without recurrent epistaxis hospital presentation -In ER Afrin applied and compression with control of bleeding -Hgb:8.5 (8.5 on 04/07/19), Plt: 32 (33 on 04/07/19) -04/18/2019: Evaluated by Dr. Nam and Merocel sponge placed in the right nostril -previous hospitalist: Hold Lovenox or any anticoagulation for now, discussed with gift shop assistant/oncologist Dr. Light, recommend vascular surgery evaluation for possible IVC filter placement; Vascular surgery service consulted, does not recommend IVC filter placement unless patient has an acute DVT -s/p 2 units of platelets and 1 unit of PRBC on this admission -04/21/2019: nasal packing removed and some reported epistaxis -trend Hgb (2) Anemia: Acute Blood Loss Anemia -management as above (3) Thrombocytopenia: Chronic thrombocytopenia -monitor platelets (4) Atrial fibrillation with rapid ventricular response: -heart rates have now been controlled after initial cardiazem on initial presentation and with beta blockers -Continue metoprolol succinate 50 mg twice daily -continue telemetry monitoring (5) Hypertension: Stable -Continue amlodipine, metoprolol (6) Hypercalcemia: -admission Corrected calcium 15 for albumin of 2.6, ionized calcium: 1.76 -during this hospital stay, IV fluids, Zometa, diuretic, calcitonin has started to normalize the serum calcium levels (7) Chronic respiratory failure: On 3 L oxygen chronically (8) Hepatic encephalopathy: -History of hepatic encephalopathy during recent admission 03/2018. During that admission patient refused further lactulose and rifaximin was added -baseline mental status currently; Continue rifaximin, does not tolerate lactulose (9) CKD (chronic kidney disease), stage III: -monitor renal function (10) Chronic right-sided congestive heart failure: CXR: Cardiomegaly without radiographic evidence of congestive failure. small right pleural effusion and bibasilar atelectasis. 04/06/19 Echo: EF>70%, moderate LVH -Continue Torsemide po daily, urged to use BiPAP while asleep -Monitor I&O's (11) Diabetes mellitus, type II: A1c: 5.8 on 03/25/19 -Basal, bolus insulin -Monitor BSG's (12) History of DVT (deep vein thrombosis): H/O DVT. Was on Eliquis which was discontinued in 03/2018 secondary to epistaxis, severe anemia. Lovenox was started on 04/01/2019 -Hold Lovenox 40mg SC daily because of nose bleeds and anemia -ambulation is encouraged (13) Obesity hypoventilation syndrome: (14) TYE treated with BiPAP: -Continue Bipap HS Full Code Subjective Patient had nasal packing removed. Patient reports some epistaxis. Denies lightheadedness. denies dizziness. no chest pain. no palpitations. breathing on oxymask. Nares of nose with dried blood Review of Systems Review of Systems: All systems reviewed & are unremarkable except as noted in HPI & below Physical Exam Constitutional: comfortable Eyes: PERRL, conjunctivae normal, anicteric sclerae EOM intact bilaterally ENMT: breathing on oxymask. Nares of nose with dried blood Neck: normal visual inspection Respiratory: normal respiratory effort, lungs clear to auscultation Cardiovascular: RRR, no murmur, no edema Gastrointestinal (Abdomen): normal bowel sounds, soft, nontender, no hepatosplenomegaly Musculoskeletal: Head/Neck/Chest: normocephalic and head atraumatic Neurologic: PERRL, EOMI, accommodation nl, no face palsy, no dysarthria CN's II-XI intact bilaterally Psychiatric: A+Ox3, euthymic affect Results & Data Vital Signs (Past 12 Hours) Vital Signs Temp Pulse Pulse Resp BP Pulse Ox 04/21/19 19:23 36.6 C 88 21 98/58 L 92 04/21/19 16:00 93 H 04/21/19 15:25 36.6 C 90 18 101/63 99 04/21/19 12:15 36.3 C L 97 H 18 103/57 L 99 04/21/19 08:00 36.4 C L 101 H 17 96/78 L 96 (1) Anemia Anemia type: unspecified type Qualified Code(s): D64.9 - Anemia, unspecified
[2019-04-22 00:39] LABS: Mean Corpuscular Hgb Conc 30.6 g/dL (32-36); Nucleated RBC # (auto) 0.39 K/uL (0-0); Nucleated RBC % (auto) 7.7 %
[2019-04-22 00:47] LABS: Hematocrit (blood only) 30.7 % (37-47); Hemoglobin 9.4 g/dL (12.0-16.0); Mean Corpuscular Hemoglobin 26.7 pg (25-34); Mean Corpuscular Volume 87.2 fL (80-100); RDW Coefficient of Variation 17.7 % (11.5-14.5); RDW Standard Deviation 55.1 fL (36.4-46.3); Red Blood Count 3.52 M/uL (4.2-5.4); White Blood Count 5.04 K/uL (4.8-10.8)
[2019-04-22 01:20] LABS: Platelet Count 40 K/uL (130-400)
[2019-04-22 01:21] LABS: Basophils # (auto) 0.05 K/uL (0-0.2); Eosinophils # (auto) 0.21 K/uL (0-0.5); Eosinophils % (auto) 4.2 %; Giant Platelets 1+; Immature Granulocytes # (auto) 0.16 K/uL (0.00-0.02); Immature Granulocytes % (auto) 3.2 %; Lymphocytes # (auto) 0.55 K/uL (1.2-3.4); Lymphocytes % (auto) 10.9 %; Monocytes # (auto) 0.46 K/uL (0.11-0.59); Monocytes % (auto) 9.1 %; Neutrophils # (auto) 3.61 K/uL (1.4-6.5); Neutrophils % (auto) 71.6 %; Platelet Estimate SIGNIFIC DECREASED (Normal); Polychromasia 1+
[2019-04-22] MEDS: ACETAMINOPHEN 325 MG TAB PO PRN ×4 (03:03→20:54)
[2019-04-22] MEDS: OXYCODONE HCL IR 5 MG TAB (IMMEDIATE RELEASE) PO PRN ×3 (05:57→23:36)
[2019-04-22] MEDS: INSULIN ASPART 100 UNITS/ML 3 ML PEN SC SCH ×4 (09:10→20:55)
[2019-04-22] MEDS: TORSEMIDE 20 MG TAB PO SCH (09:49)
[2019-04-22] MEDS: RIFAXIMIN 550 MG TABLET PO SCH ×2 (09:50→20:54)
[2019-04-22] MEDS: METOPROLOL SUCC 50MG EXT REL TAB PO SCH ×2 (09:50→16:40)
[2019-04-22] MEDS: PANTOprazole 40 MG TAB PO SCH ×2 (09:50→20:54)
[2019-04-22] MEDS: AMLODIPINE BESYLATE 5 MG TAB PO SCH (09:50)
[2019-04-22] MEDS: POTASSIUM CHLORIDE 20 MEQ TABCR PO SCH ×2 (09:50→16:40)
[2019-04-22] MEDS: INSULIN GLARGINE SOLOSTAR 100 UNITS/ML 3 ML PEN SC SCH ×2 (10:09→20:55)
--- NOTE | 2019-04-22 16:03 | Hospitalist Progress Note ---
Date of Service April 22, 2019 Assessment & Plan (1) Epistaxis: -Pt is 63 y/o F with PMH metastatic breast cancer to bone, DM II, HTN, HLD, obesity hypoventilation syndrome, chronic respiratory failure on 3 L oxygen, chronic thrombocytopenia, chronic anemia, h/o DVT, chronic right-sided heart failure, RA, atrial fibrillation, epistaxis presented to ER with complaint of epistaxis today. Recent hospitalization 03/24/2019-04/07/2019 for epistaxis, anemia requiring 5 units PRBCs and was seen by Dr Edouard and had Rivka duque. Her Eliquis was discontinued and Lovenox 40mg SC started on 04/11/19 and pt's Hgb and Plt were stable without recurrent epistaxis hospital presentation -In ER Afrin applied and compression with control of bleeding -Hgb:8.5 (8.5 on 04/07/19), Plt: 32 (33 on 04/07/19) -04/18/2019: Evaluated by Dr. Nam and Merocel sponge placed in the right nostril -previous hospitalist: Hold Lovenox or any anticoagulation for now, discussed with j2ee architect/oncologist Dr. Light, recommend vascular surgery evaluation for possible IVC filter placement; Vascular surgery service consulted, does not recommend IVC filter placement unless patient has an acute DVT -s/p 2 units of platelets and 1 unit of PRBC on this admission -04/21/2019: nasal packing removed and some reported epistaxis -04/22/2019: Nose bleeding appears to have stopped but platelets downtrended as 40,000. Patient very anxious and low platelets and concern for re-bleed. Patient then s/p 1 unit of platelet on 04/23/2019 and will continue to monitor on telemetry. (2) Anemia: Acute Blood Loss Anemia -management as above (3) Thrombocytopenia: Chronic thrombocytopenia -management as above (4) Atrial fibrillation with rapid ventricular response: -heart rates have now been controlled after initial cardiazem on initial presentation and with beta blockers -Continue metoprolol succinate 50 mg twice daily -continue telemetry monitoring (5) Hypertension: Stable -Continue amlodipine, metoprolol (6) Hypercalcemia: -admission Corrected calcium 15 for albumin of 2.6, ionized calcium: 1.76 -during this hospital stay, IV fluids, Zometa, diuretic, calcitonin has normalize the serum calcium levels (7) Chronic respiratory failure: On 3 L oxygen chronically (8) Hepatic encephalopathy: -History of hepatic encephalopathy during recent admission 03/2018. During that admission patient refused further lactulose and rifaximin was added -baseline mental status currently; Continue rifaximin, does not tolerate lactulose (9) CKD (chronic kidney disease), stage III: -monitor renal function (10) Chronic right-sided congestive heart failure: CXR: Cardiomegaly without radiographic evidence of congestive failure. small right pleural effusion and bibasilar atelectasis. 04/06/19 Echo: EF>70%, moderate LVH -Continue Torsemide po daily, urged to use BiPAP while asleep -Monitor I&O's -patient has courtney and medical doctor asked her to allow for courtney removal as of 04/22/2019 but patient insisted on keeping the courtney for now (11) Diabetes mellitus, type II: A1c: 5.8 on 03/25/19 -Basal, bolus insulin -Monitor BSG's (12) History of DVT (deep vein thrombosis): H/O DVT. Was on Eliquis which was discontinued in 03/2018 secondary to e pistaxis, severe anemia. Lovenox was started on 04/01/2019 -Hold Lovenox 40mg SC daily because of nose bleeds and anemia -ambulation is encouraged (13) Obesity hypoventilation syndrome: (14) TYE treated with BiPAP: -Continue Bipap HS Full Code Subjective Patient seen and examined at bedside this AM. Nose bleeding appears to have stopped but platelets downtrended as 40,000. Patient very anxious and low platelets and concern for re-bleed. Patient then s/p 1 unit of platelet on 04/23/2019 and will continue to monitor on telemetry. Patient breathing on oxymask. denies acute shortness of breath. no chest pain. no palpitations. Patient insists on retaining courtney catheter during hospital stay. Review of Systems Review of Systems: All systems reviewed & are unremarkable except as noted in HPI & below Physical Exam Constitutional: comfortable Eyes: PERRL, conjunctivae normal, anicteric sclerae EOM intact bilaterally Neck: normal visual inspection Respiratory: normal respiratory effort, lungs clear to auscultation Cardiovascular: RRR, no murmur, no edema Gastrointestinal (Abdomen): normal bowel sounds, soft, nontender, no hepatosplenomegaly Musculoskeletal: Head/Neck/Chest: normocephalic and head atraumatic Neurologic: PERRL, EOMI, accommodation nl, no face palsy, no dysarthria CN's II-XI intact bilaterally Psychiatric: A+Ox3, euthymic affect Genitourinary: courtney Results & Data Vital Signs (Past 12 Hours) Vital Signs Temp Pulse Pulse Resp BP BP Pulse Ox 04/22/19 15:46 36.6 C 99 H 22 106/71 95 04/22/19 14:31 36.5 C 96 H 20 93/58 L 94 04/22/19 14:12 36.3 C L 98 H 25 H 104/76 97 04/22/19 13:12 36.5 C 96 H 16 97/67 L 95 04/22/19 12:42 36.6 C 96 H 24 98/73 L 96 04/22/19 12:27 36.6 C 87 19 93/70 L 97 04/22/19 12:11 36.5 C 100 H 20 95/55 L 96 04/22/19 07:30 36.4 C L 100 H 16 104/63 04/22/19 04:29 36.6 C 103 H 18 93/61 L 97 (1) Anemia Anemia type: unspecified type Qualified Code(s): D64.9 - Anemia, unspecified
[2019-04-23 06:31] LABS: Mean Corpuscular Hgb Conc 31.1 g/dL (32-36); Nucleated RBC # (auto) 0.24 K/uL (0-0); Nucleated RBC % (auto) 4.3 %
[2019-04-23 06:44] LABS: Hematocrit (blood only) 29.8 % (37-47); Hemoglobin 9.4 g/dL (12.0-16.0); Mean Corpuscular Hemoglobin 26.9 pg (25-34); Mean Corpuscular Volume 85.1 fL (80-100); RDW Coefficient of Variation 17.9 % (11.5-14.5); RDW Standard Deviation 54.2 fL (36.4-46.3); White Blood Count 5.47 K/uL (4.8-10.8)
[2019-04-23 06:59] LABS: Platelet Count 37 K/uL (130-400)
[2019-04-23 07:00] LABS: Basophilic Stippling 1+; Basophils # (auto) 0.04 K/uL (0-0.2); Basophils % (auto) 0.7 %; Eosinophils # (auto) 0.21 K/uL (0-0.5); Eosinophils % (auto) 3.8 %; Hypochromasia Present; Immature Granulocytes # (auto) 0.29 K/uL (0.00-0.02); Immature Granulocytes % (auto) 5.3 %; Lymphocytes # (auto) 0.68 K/uL (1.2-3.4); Lymphocytes % (auto) 12.4 %; Monocytes # (auto) 0.35 K/uL (0.11-0.59); Monocytes % (auto) 6.4 %; Neutrophils % (auto) 71.4 %; Platelet Estimate Decreased (Normal); Polychromasia 1+
[2019-04-23] MEDS: OXYCODONE HCL IR 5 MG TAB (IMMEDIATE RELEASE) PO PRN ×2 (08:40→14:52)
[2019-04-23] MEDS: TORSEMIDE 20 MG TAB PO SCH (08:42)
[2019-04-23] MEDS: PANTOprazole 40 MG TAB PO SCH (08:42)
[2019-04-23] MEDS: METOPROLOL SUCC 50MG EXT REL TAB PO SCH (08:42)
[2019-04-23] MEDS: RIFAXIMIN 550 MG TABLET PO SCH (08:42)
[2019-04-23] MEDS: INSULIN GLARGINE SOLOSTAR 100 UNITS/ML 3 ML PEN SC SCH (08:43)
[2019-04-23] MEDS: POTASSIUM CHLORIDE 20 MEQ TABCR PO SCH (08:43)
[2019-04-23] MEDS: AMLODIPINE BESYLATE 5 MG TAB PO SCH (08:43)
[2019-04-23] MEDS: INSULIN ASPART 100 UNITS/ML 3 ML PEN SC SCH ×2 (08:45→11:58)
--- NOTE | 2019-04-23 09:00 | Hospitalist Progress Note ---
Date of Service April 23, 2019 Assessment & Plan (1) Epistaxis: -Pt is 63 y/o F with PMH metastatic breast cancer to bone, DM II, HTN, HLD, obesity hypoventilation syndrome, chronic respiratory failure on 3 L oxygen, chronic thrombocytopenia, chronic anemia, h/o DVT, chronic right-sided heart failure, RA, atrial fibrillation, epistaxis presented to ER with complaint of epistaxis today. Recent hospitalization 03/24/2019-04/07/2019 for epistaxis, anemia requiring 5 units PRBCs and was seen by Dr Edouard and had Rivka duque. Her Eliquis was discontinued and Lovenox 40mg SC started on 04/11/19 and pt's Hgb and Plt were stable without recurrent epistaxis hospital presentation -In ER Afrin applied and compression with control of bleeding -Hgb:8.5 (8.5 on 04/07/19), Plt: 32 (33 on 04/07/19) -04/18/2019: Evaluated by Dr. Nam and Merocel sponge placed in the right nostril -previous hospitalist: Hold Lovenox or any anticoagulation for now, discussed with social service liaison/oncologist Dr. Light, recommend vascular surgery evaluation for possible IVC filter placement; Vascular surgery service consulted, does not recommend IVC filter placement unless patient has an acute DVT -s/p 2 units of platelets and 1 unit of PRBC on this admission -04/21/2019: nasal packing removed and some reported epistaxis -04/22/2019: Nose bleeding appears to have stopped but platelets downtrended as 40,000. Patient very anxious and low platelets and concern for re-bleed. Patient then s/p 1 unit of platelet on 04/22/2019 and was continued on telemetry. 04/23/2019: Patient seen and examined and no nose bleeds. Hemoglobin stable as 9.4 and platelet counts stable as 37K. (Discharge to [facility] rehabilitation facility Patient will need to have comprehensive metabolic panel with calcium levels checked in 1 week and complete blood count checked in 1 week. Patient should return to hospital if have bleeding that does not resolve. Despite atrial fibrillation and history of DVT in the past, no systemic anticoagulation until follow up with oncology Patient has these following upcoming [facility] affiliated appointments 04/24/2019 10:45 AM Provider Lab [facility] Department Laboratory [facility] 04/24/2019 11:20 AM Provider Lucio Larry MD Department General Internal Medicine [facility] 04/24/2019 12:00 PM Provider Chair 10 Hem Onc [facility] Department Hematology/Oncology Treatment, [place] 04/29/2019 11:20 AM Provider Lucio Larry MD Department General Internal Medicine [facility] 05/15/2019 2:30 PM Provider Fina Cline PA-C Department Nephrology, [facility]) (2) Anemia: Acute Blood Loss Anemia -management as above (3) Thrombocytopenia: Chronic thrombocytopenia -management as above (4) Atrial fibrillation with rapid ventricular response: -heart rates have now been controlled after initial cardiazem on initial presentation and with beta blockers -Continue metoprolol succinate 50 mg twice daily -continue telemetry monitoring (5) Hypertension: Stable -Continue amlodipine, metoprolol (6) Hypercalcemia: -admission Corrected calcium 15 for albumin of 2.6, ionized calcium: 1.76 -during this hospital stay, IV fluids, Zometa, diuretic, calcitonin has normalize the serum calcium levels (7) Chronic respiratory failure: On 3 L oxygen chronically (8) Hepatic encephalopathy: History of hepatic encephalopathy during recent admission 03/2018. During that admission patient refused further lactulose and rifaximin was added -baseline mental status currently; Continue rifaximin, does not tolerate lactulose (9) CKD (chronic kidney disease), stage III: -monitor renal function (10) Chronic right-sided congestive heart failure: CXR: Cardiomegaly without radiographic evidence of congestive failure. small right pleural effusion and bibasilar atelectasis. 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 Was on Eliquis which was discontinued in 03/2018 secondary to epistaxis, severe anemia. Lovenox was started on 04/01/2019 -on this stay, Lovenox 40mg SC daily was stopped because of nose bleeds and anemia -ambulation is encouraged (13) Obesity hypoventilation syndrome: (14) TYE treated with BiPAP: -Continue Bipap HS Full Code Discharge Diagnosis: Epistaxis; Acute Blood Loss Anemia; Thrombocytopenia, Hypercalcemia, CKD (chronic kidney disease) stage III, Hypertension, Atrial fibrillation with rapid ventricular response, Chronic right-sided congestive heart failure, Obesity hypoventilation syndrome, TYE treated with BiPAP, Type 2 diabetes mellitus with ad terminal makeup operator current use of insulin, History of hepatic encephalopathy, History of DVT (deep vein thrombosis) in the past (off anticoagulation because of bleed risks) Subjective Patient seen and examined and no nose bleeds. Hemoglobin stable as 9.4 and platelet counts stable as 37K. no headache. no dizziness. no chest pain. no palpitations. remains in atrial fibrillation on telemetry. on oxygen. no acute shortness of breath. courtney to be removed by nurse. no abdominal pain. no nausea. no vomiting Review of Systems Review of Systems: All systems reviewed & are unremarkable except as noted in HPI & below Physical Exam Constitutional: comfortable Eyes: PERRL, conjunctivae normal, anicteric sclerae EOM intact bilaterally ENMT: external ear and nose normal, oropharynx normal Neck: normal visual inspection Respiratory: normal respiratory effort, lungs clear to auscultation Cardiovascular: Rate/Rhythm: + irregularly irregular Gastrointestinal (Abdomen): normal bowel sounds, soft, nontender, no hepatosplenomegaly Musculoskeletal: Head/Neck/Chest: normocephalic and head atraumatic Neurologic: PERRL, EOMI, accommodation nl, no face palsy, no dysarthria CN's II-XI intact bilaterally Psychiatric: A+Ox3, euthymic affect Results & Data Vital Signs (Past 12 Hours) Vital Signs Temp Pulse Pulse Pulse Resp BP Pulse Ox 04/23/19 07:15 36.7 C 102 H 21 91/68 L 96 04/23/19 04:00 36.5 C 94 H 18 110/76 96 04/23/19 00:54 91 H 04/22/19 23:25 36.5 C 91 H 20 90/64 L 97 (1) Anemia Anemia type: unspecified type Qualified Code(s): D64.9 - Anemia, unspecified
--- NOTE | 2019-04-23 09:05 | Discharge Summary ---
Date of Service April 23, 2019 Admission HPI Per Admitting Provider per medical: Pt is 63 y/o F with PMH metastatic breast cancer to bone, DM II, HTN, HLD, obesity hypoventilation syndrome, chronic respiratory failure on 3 L oxygen, chronic thrombocytopenia, chronic anemia, h/o DVT, chronic right-sided heart failure, RA, atrial fibrillation, epistaxis. Patient with recent hospitalization 03/24/2019-04/07/2019 for hypoxia, epistaxis, anemia requiring 5 units PRBCs, new onset atrial fibrillation RVR, thrombocytopenia, hepatic encephalopathy. During that admission patient became hypercapnic and required intubation. Patient denied home health/SNF/rehab upon discharge. states that she is homesick as never been in the hospital so much and that Dec was difficult as anniversary of her mother and dog's . Her health continues to deteroriate and sometimes now she wakes up at night somewhat disoriented with her mask and somewhat panicky to catch her breath. Med changes since last admit include apparent d/c of Cymbalta and Ativan. Admission Exam Per Admitting Provider General: no acute distress, morbid obesity Head: normocephalic, atraumatic Eyes: PERRL, EOM's intact, conjunctiva non-injected, anicteric ENT: normal inspection external ears, nose, No active epistaxis at this time, right nare with noted dried blood, mucous membranes moist Neck: supple, trachea midline, non-tender Lungs: no respiratory distress, diminished breath sounds, no rales/rhonchi/wheezing CV: irregularly irregular, rate 98, no murmur, no JVD, 2+pretibial edema Abd: normal BS, soft, non-tender Ext: no cyanosis, no calf tenderness Neuro: A&O x 3, no focal deficits noted, normal affect Skin: warm, dry Principal Diagnosis Epistaxis; Acute Blood Loss Anemia; Thrombocytopenia, Hypercalcemia, CKD (chronic kidney disease) stage III, Hypertension, Atrial fibrillation with rapid ventricular response, Chronic right-sided congestive heart failure, Obesity hypoventilation syndrome, TYE treated with BiPAP, Type 2 diabetes mellitus with skilled nursing current use of insulin, History of hepatic encephalopathy, History of DVT (deep vein thrombosis) in the past (off anticoagulation because of bleed risks) Discharge Exam Constitutional comfortable Eyes PERRL, conjunctivae normal, anicteric sclerae EOM intact bilaterally ENMT external ear and nose normal, oropharynx normal Neck normal visual inspection Respiratory normal respiratory effort, lungs clear to auscultation Cardiovascular RRR, no murmur, no edema Rate/Rhythm: + irregularly irregular Gastrointestinal (Abdomen) normal bowel sounds, soft, nontender, no hepatosplenomegaly Musculoskeletal Head/Neck/Chest: normocephalic and head atraumatic Neurologic PERRL, EOMI, accommodation nl, no face palsy, no dysarthria CN's II-XI intact bilaterally Psychiatric A+Ox3, euthymic affect Discharge Data Allergies Allergy/AdvReac Type Severity Reaction Status Date / Time gabapentin AdvReac Hallucinati Verified 04/17/19 13:40 ng Consultations 04/17/19 13:27 ED Decision to Admit Stat 04/17/19 16:56 Consult Nephrology Routine 04/17/19 17:47 Consult Cardiology Routine Consult Case Management - Discharge Planning Routine Consult Nephrology Routine Consult Otolaryngology (Head and Neck) Routine 04/19/19 12:52 Consult Psychiatry Routine Consult Vascular Surgery Routine Hospital Course (1) Epistaxis: -Pt is 63 y/o F with PMH metastatic breast cancer to bone, DM II, HTN, HLD, obesity hypoventilation syndrome, chronic respiratory failure on 3 L oxygen, chronic thrombocytopenia, chronic anemia, h/o DVT, chronic right-sided heart failure, RA, atrial fibrillation, epistaxis presented to ER with complaint of epistaxis today. Recent hospitalization 03/24/2019-04/07/2019 for epistaxis, anemia requiring 5 units PRBCs and was seen by Dr Edouard and had Fibrillar R nare. Her Eliquis was discontinued and Lovenox 40mg SC started on 04/11/19 and pt's Hgb and Plt were stable without recurrent epistaxis hospital presentation -In ER Afrin applied and compression with control of bleeding -Hgb:8.5 (8.5 on 04/07/19), Plt: 32 (33 on 04/07/19) -04/18/2019: Evaluated by Dr. Nam and Merocel sponge placed in the right nostril -previous hospitalist: Hold Lovenox or any anticoagulation for now, discussed with knotting machine operator/oncologist Dr. Light, recommend vascular surgery evaluation for possible IVC filter placement; Vascular surgery service consulted, does not recommend IVC filter placement unless patient has an acute DVT -s/p 2 units of platelets and 1 unit of PRBC on this admission -04/21/2019: nasal packing removed and some reported epistaxis -04/22/2019: Nose bleeding appears to have stopped but platelets downtrended as 40,000. Patient very anxious and low platelets and concern for re-bleed. Patient then s/p 1 unit of platelet on 04/22/2019 and was continued on telemetry. 04/23/2019: Patient seen and examined and no nose bleeds. Hemoglobin stable as 9.4 and platelet counts stable as 37K. (Discharge to [facility] Patient will need to have comprehensive metabolic panel with calcium levels checked in 1 week and complete blood count checked in 1 week. Patient should return to hospital if have bleeding that does not resolve. Despite atrial fibrillation and history of DVT in the past, no systemic anticoagulation until follow up with oncology Patient has these following upcoming [facility] affiliated appointments 04/24/2019 10:45 AM Provider Lab [facility] Department Laboratory [facility] 04/24/2019 11:20 AM Provider Lucio Larry MD Department General Internal Medicine [facility] 04/24/2019 12:00 PM Provider Chair 10 Hem Onc [facility] Department Hematology/Oncology Treatment, [place] 04/29/2019 11:20 AM Provider Lucio Larry MD Department General Internal Medicine [facility] 05/15/2019 2:30 PM Provider Fina Cline PA-C Department Nephrology, [facility]) (2) Anemia: Acute Blood Loss Anemia -management as above (3) Thrombocytopenia: Chronic thrombocytopenia -management as above (4) Atrial fibrillation with rapid ventricular response: -heart rates have now been controlled after initial cardiazem on initial presentation and with beta blockers -Continue metoprolol succinate 50 mg twice daily -continue telemetry monitoring (5) Hypertension: Stable -Continue amlodipine, metoprolol (6) Hypercalcemia: -admission Corrected calcium 15 for albumin of 2.6, ionized calcium: 1.76 -during this hospital stay, IV fluids, Zometa, diuretic, calcitonin has normalize the serum calcium levels (7) Chronic respiratory failure: On 3 L oxygen chronically (8) Hepatic encephalopathy: History of hepatic encephalopathy during recent admission 03/2018. During that admission patient refused further lactulose and rifaximin was added -baseline mental status currently; Continue rifaximin, does not tolerate lactulose (9) CKD (chronic kidney disease), stage III: -monitor renal function (10) Chronic right-sided congestive heart failure: CXR: Cardiomegaly without radiographic evidence of congestive failure. small right pleural effusion and bibasilar atelectasis. 04/06/19 Echo: EF>70%, moderate LVH -Continue Torsemide po daily, urged to use BiPAP while asleep -Monitor I&O's -patient has courtney and medical doctor asked her to allow for courtney removal as of 04/22/2019 but patient insisted on keeping the courtney for now (11) Diabetes mellitus, type II: Type 2 diabetes mellitus with skilled nursing current use of insulin A1c: 5.8 on 03/25/19 -Basal, bolus insulin -Monitor BSG's (12) History of DVT (deep vein thrombosis): H/O DVT. Was on Eliquis which was discontinued in 03/2018 secondary to epi staxis, severe anemia. 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, History of hepatic encephalopathy, History of DVT (deep vein thrombosis) in the past (off anticoagulation because of bleed risks) Total Time Total Time Spent Total Time Spent (In Minutes): 40 minutes Total Time Includes: Examination of the Patient, Discharge Planning, Medication Reconciliation and Communication With Other Providers Discharge Plan Discharge Items Patient Disposition: Transfer Inpatient Rehab Fac Reason For Visit: HYPERCALCEMIA, EPISTAXIS, AFIB RVR Discharge Diagnosis: Epistaxis; Acute Blood Loss Anemia; Thrombocytopenia, Hypercalcemia, CKD (chronic kidney disease) stage III, Hypertension, Atrial fibrillation with rapid ventricular response, Chronic right-sided congestive heart failure, Obesity hypoventilation syndrome, TYE treated with BiPAP, Type 2 diabetes mellitus with skilled nursing current use of insulin, History of hepatic encephalopathy, History of DVT (deep vein thrombosis) in the past (off anticoagulation because of bleed risks) Condition on Discharge: Good Activity: Per Instructions section Non-emergency contact: Primary Care Provider and Specialist Call non-emergency contact if: you have any medication questions Follow-up/Referrals: Lucio Larry MD [Primary Care Provider] - Diet: Carb Consistent or DM2, Low Sodium (2gm) and Vegetarian (Lacto-Ovo) Fluids: 1500ml (6 cups) Ambulatory Orders: Basic Metabolic Panel (Routine) Timeframe: 1 Week Location: Determined by Patient Ordered By: Kylah Roca Attending Provider Instructions: Discharge to [facility] Patient will need to have comprehensive metabolic panel with calcium levels checked in 1 week and complete blood count checked in 1 week. Patient should return to hospital if have bleeding that does not resolve. Despite atrial fibrillation and history of DVT in the past, no systemic anticoagulation until follow up with oncology Patient has these following upcoming [facility] affiliated appointments 04/24/2019 10:45 AM Provider Lab [facility] Department Laboratory [facility] 04/24/2019 11:20 AM Provider Lucio Larry MD Department General Internal Medicine [facility] 04/24/2019 12:00 PM Provider Chair 10 Hem Onc [facility] Department Hematology/Oncology Treatment, [place] 04/29/2019 11:20 AM Provider Lucio Larry MD Department General Internal Medicine [facility] 05/15/2019 2:30 PM Provider Fina Cline PA-C Department Nephrology, [facility] Pending Studies at Discharge: No Stand-Alone Forms: My [facility] Skilled Items Patient informed of condition?: Yes DNR: No Discharge Level of Care: Acute rehab Communicable Disease: Yes Discharge Prognosis: Stable Lines: None Urinary Catheter: No Medications and DC Order Prescriptions: New buspirone 5 mg Tablet 5 mg PO Q12H PRN (Reason: anxiety) 10 Days Qty: 10 RF: 0 Continued omeprazole 20 mg capsule,delayed release(DR/EC) 20 mg PO BID RF: 0 torsemide 20 mg tablet 20 mg PO DAILY PRN (Reason: Edema) RF: 0 Novolog Flexpen U-100 Insulin 100 unit/mL (3 mL) insulin pen 0 unit SUBCUT UD RF: 0 metoprolol succinate 50 mg Tablet Extended Release 24 Hr 50 mg PO BID17 30 Days Qty: 30 RF: 2 amlodipine [Norvasc] 5 mg Tablet 5 mg PO QAM 30 Days Qty: 30 RF: 2 Xifaxan 550 mg Tablet 550 mg PO BID 30 Days Qty: 60 RF: 2 oxycodone 5 mg tablet 5 mg PO Q6H Qty: 0 RF: 0 Lantus Solostar U-100 Insulin 100 unit/mL (3 mL) insulin pen See Rx Instructions .ROUTE .COMPLEX Qty: 15 RF: 5 Discontinued enoxaparin 40 mg/0.4 mL Syringe 40 mg subcut Q24H 30 Days Qty: 12 RF: 2 Discharge Orders: Discharge Order (Routine); Ordered 04/23/19 Ordered By: Frandy Edmond Admission Data Admit Date/Time: 04/17/19 15:03 Attending Provider: Frandy Edmond Admit Provider: Nico Yu Primary Care Provider: Lucio Larry Other Providers: Kylah Madsen ; Nico Yu ; Jean Carlos Alcala ; Jean Carlos Nam ; Lucio Avila ; Nikole Barakat ; Deepak Rodríguez ; Jarocho Yee ; Nahum Mancini ; Alissa Astudillo ; Darly Guallpa ; Marla Mueller ; Shahana Pat ; Modesta Lamar ; Maddison Almonte ; Jean Carlos Xavier I. ; Bina Carvajal ; Mere Alcazar ; Maite Boucher ; Johann Sarah ; Jeferson Cobb ; [facility]
[2019-04-23] MEDS: ACETAMINOPHEN 325 MG TAB PO PRN (11:22)
== END 2019-04-23 15:22 | DRG 812 ==
LOC: ED 10:52 → SUATTDRO 15:03 → 2E 15:03

== ENCOUNTER 2019-05-11 22:09 | Inpatient (IN) ==
[2019-05-11] MEDS ORDERED: OXYMETAZOLINE 0.05% 30 ML BTL ONE (22:26)
[2019-05-11] MEDS ORDERED: PHENYLEPHRINE 1% NA SPR 15 ML BTL ONE (22:27)
[2019-05-11 23:52] LABS: ALC (manual) 0.88 K/uL (1.2-3.4); ANC (manual) 3.32 K/uL (1.4-6.5); Basophils # (manual) 0.04 K/uL (0-0.2); Basophils % (manual) 0.9 %; Eosinophils # (manual) 0.18 K/uL (0-0.5); Eosinophils % (manual) 3.6 %; Hemoglobin 7.6 g/dL (12.0-16.0); Hypochromasia Present; Lymphocytes # (manual) 0.88 K/uL (1.2-3.4); Mean Corpuscular Hemoglobin 26.8 pg (25-34); Mean Corpuscular Hgb Conc 30.4 g/dL (32-36); Metamyelocytes # (manual) 0.13 K/uL (0-0); Metamyelocytes % (manual) 2.7 %; Monocytes # (manual) 0.27 K/uL (0.11-0.59); Monocytes % (manual) 5.4 %; Myelocytes # (manual) 0.09 K/uL (0-0); Myelocytes % (manual) 1.8 %; Neutrophils # (manual) 3.32 K/uL (1.4-6.5); Neutrophils % (manual) 67.6 %; Nucleated RBC # (auto) 0.81 K/uL (0-0); Nucleated RBC % (auto) 16.5 %; Platelet Count 8 K/uL (130-400); Platelet Estimate SIGNIFIC DECREASED (Normal); RDW Coefficient of Variation 19.2 % (11.5-14.5); RDW Standard Deviation 60.4 fL (36.4-46.3); Red Blood Count 2.84 M/uL (4.2-5.4); Tear Drop Cells 1+; White Blood Count 4.91 K/uL (4.8-10.8)
[2019-05-12] MEDS ORDERED: SODIUM CHLORIDE 0.9% 250 ML IV PRN (00:01)
--- NOTE | 2019-05-12 00:06 | Emergency Department Note ---
Entered by Yadi Chavez acting as a scribe for History of Present Illness General Chief complaint: Nose Bleed (Minor) Stated complaint: LOW PATLETTS NOSE BLEED Time Seen by Provider: 05/11/19 22:19 Source: patient History of Present Illness Location: face Severity: similar to prior episodes Pain Consistency: + constant Maximum Pain Intensity: 0 Current Pain Intensity: 0 Relieved By: + none Associated symptoms: + other (nose bleed) Treatments prior to arrival: none The patient is a 64 year old female who presents to the Emergency Room with complaints of nose bleed. Her nose is bleeding on the right side. Her reports that she had 1 unit of blood platelets on Saturday. She had one unit of blood today as well. The patient was taken off of all of her blood thinners, but did receive Lasix today. The patient is on 3 L of oxygen at home. Her platelets are normally low, and she has had nose bleeds before. She has a history of metastatic breast cancer stage 4. Home Medications Home Medications Medication Instructions Recorded Confirmed Type Lantus Solostar U-100 Insulin See Rx Instructions .ROUTE 05/16/18 05/11/19 Rx .COMPLEX #15 ml omeprazole 20 mg PO BID 01/06/19 05/11/19 History torsemide 20 mg PO DAILY PRN 01/06/19 05/11/19 History insulin aspart U-100 [Novolog 3 unit SUBCUT TIDM 03/24/19 05/11/19 History Flexpen U-100 Insulin] Xifaxan 550 mg PO BID 30 Days #60 tab 04/07/19 05/11/19 Rx metoprolol succinate 50 mg PO BID17 30 Days #30 tab 04/07/19 05/11/19 Rx oxycodone 5 mg PO Q6H #0 tab 04/07/19 05/11/19 Rx acetaminophen 500 mg PO Q6 05/11/19 05/11/19 History amlodipine 2.5 mg PO DAILY 05/11/19 05/11/19 History apixaban [Eliquis] 5 mg PO BID 05/11/19 05/11/19 History buspirone 5 mg PO BID 05/11/19 05/11/19 History duloxetine 60 mg PO DAILY 05/11/19 05/11/19 History hydroxyzine HCl 25 mg PO BID PRN 05/11/19 05/11/19 History nystatin [Nystop] 1 applic TOPICAL BID 05/11/19 05/11/19 History tizanidine 4 mg PO BID PRN 05/11/19 05/11/19 History Allergies Allergy/AdvReac Type Severity Reaction Status Date / Time gabapentin AdvReac Hallucinati Verified 05/08/19 12:41 ng Past Med/Surg History Medical History Anemia (Acute) ATN (acute tubular necrosis) Atrial fibrillation (Acute) Breast cancer metastasized to bone (Inactive) Chronic kidney disease (Inactive) Chronic right-sided congestive heart failure CKD (chronic kidney disease), stage III Diabetes mellitus, type II Hepatic encephalopathy History of DVT (deep vein thrombosis) Hypercalcemia (Acute) Hyperlipidemia (Chronic) Hypertension (Chronic) Irritable bowel syndrome (Chronic) Metastatic breast cancer Obesity hypoventilation syndrome TYE (obstructive sleep apnea) Osteoarthritis (Chronic) Rheumatoid arthritis (Inactive) Right-sided heart failure Thrombocytopenia (Chronic) Surgical History History of hernia repair (Chronic) Family History Mother Stroke Diabetes Father Diabetes Social History Preferred Language: E[place] Communication Ability: Effective Visual Impairment: No Limitations Culture Manager Required: No Beliefs That Will Affect Care: Mandaen Mandaen Beliefs: [employer] marital status: Current Living Situation: Spouse Feels Safe at Home: Yes Smoking Status: Former smoker Second Hand Exposure: No ; Hx Alcohol Use: No Hx Substance Use: Yes substance use type: prescription drug Last Used Substance: Unknown Review of Systems See HPI for pertinent positives & negatives. and A total of 10 systems reviewed and were otherwise negative Physical Exam Vital Signs Vital Signs - 24 hr 05/11/19 22:16 Temperature 36.2 C L Temperature Source Oral Pulse Rate 77 Pulse Rhythm Regular Pulse Strength Normal Respiratory Rate 22 Respiratory Effort / Characteristics Non-Labored Spontaneous Respiratory Depth Normal Respiratory Pattern Regular Blood Pressure 131/76 Blood Pressure Mean 94 Blood Pressure Position Sitting Pulse Oximetry 98 Oxygen Delivery Method Room Air Oxygen Flow Rate 3 Sepsis Action Taken by Nursing No Action Required CONSTITUTIONAL/VITAL SIGNS: Reviewed / noted above. GENERAL: Non-toxic in appearance. INTEGUMENTARY: Warm, dry, and [place]. HEAD: Normocephalic. EYES: without scleral icterus or trauma. ENT/OROPHARYNX: Bleeding from right naris. LYMPHADENOPATHY/NECK: Is supple without lymphadenopathy or meningismus. RESPIRATORY: Lungs clear and equal. CARDIOVASCULAR: Regular rate and rhythm. GI/ABDOMEN: Soft and nontender. No organomegaly or pulsatile mass. No rebound or guarding. Normal bowel sounds. EXTREMITIES: Warm and well perfused. BACK: No CVA tenderness. NEUROLOGICAL: Intact without focal deficits. PSYCHIATRIC: normal affect. MUSCULOSKELETAL: Normally developed with good muscle tone. Course Course 2221: Past medical records reviewed. The patient was evaluated in room A11B. A complete history and physical exam was performed. 2320: I rechecked on the patient and put in a rapid rhino. Administered Medications Discontinued Medications Oxymetazoline HCl (Afrin 0.05%) Confirm Administered Dose 150 sprays .ROUTE .[place] [employer]-MED ONE Stop: 05/11/19 22:27 Last Admin: 05/11/19 22:30 Dose: 150 sprays Documented by: [id number] Phenylephrine HCl (Abel-Synephrine 1% (Extra Strength)) Confirm Administered Dose 225 sprays .ROUTE .STK-MED ONE Stop: 05/11/19 22:28 Last Admin: 05/11/19 22:46 Dose: Not Given Documented by: [id number] Medical Decision Making Differential Diagnosis Differential diagnosis includes: anterior epistaxis, coagulopathy, traumatic injury, fracture, septal hematoma, posterior epistaxis as well as other pathologies were entertained. Medical Records Attestation: I reviewed the patient's medical records. Home Medications Current Medication List: was personally reviewed by me Laboratory Data Result diagrams: 05/11/19 23:08 Lab Results 05/11/19 Range/Units 23:08 WBC 4.91 (4.8-10.8) K/uL RBC 2.84 L (4.2-5.4) M/uL Hgb 7.6 L (12.0-16.0) g/dL Hct 25.0 L (37-47) % MCV 88.0 (80-100) fL MCH 26.8 (25-34) pg MCHC 30.4 L (32-36) g/dL RDW Std Deviation 60.4 H (36.4-46.3) fL RDW Coeff of Flori 19.2 H (11.5-14.5) % Plt Count 8 L* (130-400) K/uL Absolute Nucleated RBC 0.81 H (0-0) K/uL Nucleated RBC % (auto) 16.5 % Neutrophils % (Manual) 67.6 % Lymphocytes % (Manual) 18.0 % Monocytes % (Manual) 5.4 % Eosinophils % (Manual) 3.6 % Basophils % (Manual) 0.9 % Metamyelocytes % (Man) 2.7 % Myelocytes % (Man) 1.8 % Neutrophils # (Manual) 3.32 (1.4-6.5) K/uL Total Absolute Neuts 3.32 (1.4-6.5) K/uL Lymphocytes # (Manual) 0.88 L (1.2-3.4) K/uL Total Abs Lymphocytes 0.88 L (1.2-3.4) K/uL Monocytes # (Manual) 0.27 (0.11-0.59) K/uL Eosinophils # (Manual) 0.18 (0-0.5) K/uL Basophils # (Manual) 0.04 (0-0.2) K/uL Metamyelocytes # (Man) 0.13 H (0-0) K/uL Myelocytes # (Manual) 0.09 H (0-0) K/uL Platelet Estimate SIGNIFIC DECREASED (Normal) Hypochromasia Present Tear Drop Cells 1+ Blood Pressure Blood Pressure Findings: Elevated blood pressure Blood Pressure Disposition: Referred to patients primary care provider [facility] Narrative This is a 64-year-old female who presents to the ED with a chief complaint of a nosebleed. The patient's nose is bleeding from the right anterior septum. It started bleeding earlier today. The patient has a history of stage IV breast cancer. He does have a history of thrombocytopenia. She received blood products earlier this week with regards to platelets. She also received packed RBCs this morning. The patient is feeling weak. She does have a little shortness of breath. She is chronically on oxygen. She has no other complaints. The patient's right anterior septum appears to be bleeding although there does not appear to be a particular site is bleeding. It looks like the entire septum is oozing. I initially used Afrin spray and a Rhino Rocket to control the bleeding. The bleeding persisted and a rapid Rhino was placed with a balloon. This appears to be controlling the bleeding. The patient's platelet count is 8 and her hemoglobin is 7.5. She was ordered some platelets. I spoke with the hospitalist about bringing the patient into the hospital for further evaluation. She is hemodynamically stable. Impression & Plan Anterior epistaxis, Thrombocytopenia, Anemia Discharge Plan Visit Data Chief Complaint: Nose Bleed (Minor) Stated Complaint: LOW PATLETTS NOSE BLEED ED Provider: Celestino Garcia Discharge Problem: Anterior epistaxis, Thrombocytopenia, Anemia Patient Disposition: Being Evaluated by Hospitalist Condition: Good Forms Stand Alone Forms: My [facility], Important Visit Information Prescriptions Prescriptions: No Action omeprazole 20 mg capsule,delayed release(DR/EC) 20 mg PO BID RF: 0 torsemide 20 mg tablet 20 mg PO DAILY PRN (Reason: Edema) RF: 0 insulin aspart U-100 [Novolog Flexpen U-100 Insulin] 100 unit/mL (3 mL) insulin pen 3 unit SUBCUT TIDM RF: 0 metoprolol succinate 50 mg Tablet Extended Release 24 Hr 50 mg PO BID17 30 Days Qty: 30 RF: 2 Xifaxan 550 mg Tablet 550 mg PO BID 30 Days Qty: 60 RF: 2 oxycodone 5 mg tablet 5 mg PO Q6H Qty: 0 RF: 0 buspirone 5 mg tablet 5 mg PO BID RF: 0 amlodipine 2.5 mg tablet 2.5 mg PO DAILY RF: 0 duloxetine 60 mg capsule,delayed release(DR/EC) 60 mg PO DAILY RF: 0 nystatin [Nystop] 100,000 unit/gram powder 1 applic TOPICAL BID RF: 0 acetaminophen 500 mg tablet 500 mg PO Q6 RF: 0 Eliquis 5 mg tablet 5 mg PO BID RF: 0 hydroxyzine HCl 25 mg tablet 25 mg PO BID PRN (Reason: Anxiety) RF: 0 tizanidine 4 mg capsule 4 mg PO BID PRN (Reason: as directed) RF: 0 Lantus Solostar U-100 Insulin 100 unit/mL (3 mL) insulin pen See Rx Instructions .ROUTE .COMPLEX Qty: 15 RF: 5 Referrals Referrals: Lucio Larry MD [Primary Care Provider] - Discharge Problem: Anemia Qualifiers: Anemia type: iron deficiency The scribe's documentation has been prepared under my direction and personally reviewed by me in its entirety. I confirm that the note above accurately reflec ts all work, treatment, procedures, and medical decision making performed by me.
[2019-05-12] MEDS ORDERED: POLYETHYLENE (MIRALAX) 17 GM PACK PO PRN (02:29)
[2019-05-12] MEDS ORDERED: ACETAMINOPHEN 325 MG TAB PO PRN (02:29)
[2019-05-12] MEDS ORDERED: FUROSEMIDE 40 MG/4 ML VIAL IV STA (02:29)
[2019-05-12] MEDS ORDERED: ONDANSETRON INJ 2 MG/ML 2 ML VIAL IV PRN (02:29)
[2019-05-12] MEDS ORDERED: GLUCOSE 10 TABS/TUBE PO PRN (02:45)
[2019-05-12] MEDS ORDERED: DEXTROSE 50% 50 ML SYRINGE IV PRN (02:45)
[2019-05-12] MEDS ORDERED: GLUCAGON FOR INJ 1 MG VIAL IM PRN (02:45)
[2019-05-12] MEDS ORDERED: GLUCOSE 40% GEL 15 GM TUBE PO PRN (02:45)
[2019-05-12] MEDS ORDERED: CARBOHYDRATES FOR HYPOGLYCEMIA PO PRN (02:45)
[2019-05-12] MEDS: MoRPHine SULFATE 4 MG/ML 1 ML CARP\\VIAL IV PRN ×3 (02:56→12:46)
--- NOTE | 2019-05-12 05:40 | History and Physical Report ---
DATE OF ADMISSION: 05/12/2019 CHIEF COMPLAINT: Epistaxis. HISTORY OF PRESENT ILLNESS: A 64-year-old female with past medical history significant for metastatic breast cancer, currently on Faslodex and Xgeva every 4 weeks, last time was in February, supposed to get those treatment last week, but it was held because of her anemia and thrombocytopenia; history of idiopathic thrombocytopenia; rheumatoid arthritis used to be on methotrexate previously, no longer on treatment currently; history of atrial fibrillation, no longer on anticoagulation secondary to thrombocytopenia and epistaxis; history of DVT, used to be on Eliquis and discontinued and was on Lovenox that was stopped early this month because of epistaxis; history of sleep apnea, on CPAP; type 2 diabetes; chronic right-sided heart failure; history of hypercalcemia; chronic respiratory failure, on 3 liters oxygen chronically; hypertension; history of depression and anxiety; type 2 diabetes; hyperlipidemia; presents with epistaxis. She saw Hem/Onc on 05/08/2019 and blood work showed platelets less than 10 and hemoglobin 7.1 and she received a unit of platelet transfusion last Saturday and Saturday she received a unit of blood transfusion, but on Saturday evening, she started to have nosebleeds. Because of nose bleed she came to the ER. The bleeding is from right nostril, status post nose pack in the ER, also receiving antiplatelets. Platelets 8,000 in the ER, hemoglobin 7.6. The patient was given Afrin spray and Rhino pack to control the bleeding. The bleeding has persisted and Rapid Rhino was placed with the balloon. There is still a small amount of ooze from the right nostril. She is on oxygen mask. Denies any chest pain. No shortness of breath, no cough. No fever, no chills. No headache, no blurred vision. No nausea, no vomiting, no abdominal pain, no blood in the stools or black stools. No hematuria. She says her swelling in the legs has worsened. She walks with help of a walker at home and also a wheelchair. ALLERGIES: TO GABAPENTIN. PAST MEDICAL HISTORY: As mentioned above. PAST SURGICAL HISTORY: Laparoscopy and hysteroscopy, repair of incisional hernia. MEDICATIONS: Currently the patient is on amlodipine 2.5 mg p.o. b.i.d., buspirone 5 mg p.o. b.i.d., NovoLog 3 units t.i.d., Lantus sliding scale, metoprolol succinate 50 mg b.i.d., nystatin topical b.i.d., omeprazole 20 mg b.i.d., oxycodone 5 mg p.o. q. 6 hours p.r.n., torsemide 20 mg p.o. daily p.r.n., rifaximin 550 mg p.o. b.i.d. FAMILY HISTORY: Significant for father has diabetes, hypertension. Mother has hypertension, diabetes and kidney disease. SOCIAL HISTORY: , lives with . No smoking, no alcohol, no drug use. REVIEW OF SYMPTOMS: As per HPI. Rest of review of symptoms are negative. PHYSICAL EXAMINATION: GENERAL: The patient is moderate built, in mild distress because of the epistaxis. VITAL SIGNS: Temperature 36.2, pulse 77, respiratory rate 22, blood pressure 131/76, oxygen 98% on 3 liters. HEENT: No pallor, no icterus. Right now nasal packs seen in the right nostril. NECK: No neck masses. Supple. CARDIOVASCULAR: S1, S2 heard. Regular rate and rhythm. No murmur, no gallop. RESPIRATORY SYSTEM: Normal AP diameter. No accessory muscle use. No wheezing, no crackles. ABDOMEN: Soft, bowel sounds present, nontender. No distention. CENTRAL NERVOUS SYSTEM: Alert and oriented. Obeys commands. Moves extremities. EXTREMITIES: Bilateral lower extremity +2 edema with erythema seen. LABORATORIES DATA: WBC 4.9, hemoglobin 7.6, hematocrit 25, platelets 38. ASSESSMENT AND PLAN: This is a 64-year-old female with metastatic breast cancer, presented with epistaxis. 1. Epistaxis. The patient had similar epistaxis in first week of April when ENT saw her. At that time her Lovenox was held. The patient is seen by ENT and Merocel sponge placed in the right nostril. Currently, hemoglobin is 7.6, received a unit of PRBC in Saturday morning. Rhino packet with balloon was placed in the ER, which we will continue and consult ENT in a.m. Keep n.p.o. for now. The patient getting unit of platelet transfusion. We will monitor closely. 2. Thrombocytopenia, history of ITP, on chemo for breast cancer, possible cause of low platelets.Getting 1 unit of platelet transfusion today, had 1 transfusion on Saturday. We will follow the labs in a.m. 3. Acute on chronic anemia, possible blood loss: Her hemoglobin is mostly in the 7s on outpatient labs, received a unit of PRBCs Saturday05/11/19, morning. We will follow the repeat hemoglobin in the morning and if goes below 7, we will transfuse PRBCs. Currently hemodynamically stable. 4. Metastatic breast cancer. Follows with Hem/Onc, on 4 weekly Faslodex and Xgeva, but her last dose was in February, currently held for her low blood counts. As per heme/oco notes poor prognosis and not a candidate for cytotoxic chemotherapy. 5. History of atrial fibrillation, on metoprolol succinate,rates controlled. No anticoagulation secondary to thrombocytopenia, epistaxis. 6. Hypertension, on amlodipine and metoprolol. We will monitor. 7. Hypercalcemia, on last admission received fluids, diuretics and Zometa. it was 9.6 on 05/08/2019 lab work on outpatient.Will follow labs in am. 9. History of hepatic encephalopathy, during last admission, currently on Xifaxan. We will follow ammonia levels. 10. Acute on chronic right-sided heart failure. Recent echo with normal EF. Takes torsemide p.o. daily. received lasix with blood transfusion in morning. We will give him a dose of IV Lasix. We will continue torsemide daily in the morning and monitor. The patient wants to be on Ta. We will place a Ta. 12. Lower extremity edema, history of DVT, currently not on anticoagulation because of the thrombocytopenia, anemia and epistaxis. We will follow the Dopplers. 13. Obstructive sleep apnea. cannot continue BiPAP currently because of epistaxis 14. DVT prophylaxis. Continue on anticoagulation because of epistaxis complaints. We will place SCDs for now and monitor. DISPOSITION: Admit to medical floor Expect discharge home and follow with family doctor. Level 1 full code only if there is a chance of recovery for short duration. MTDD
--- NOTE | 2019-05-12 07:08 | Ultrasound Report ---
BILATERAL LOWER EXTREMITY VENOUS DOPPLER HISTORY: lower ext edema and erythema. hx of dvt COMPARISON STUDY: None. FINDINGS: There is normal compressibility, flow, and augmentation within the bilateral lower extremit y deep venous systems. Study is suboptimal due to the patient's body habitus. IMPRESSION: No DVT within the right or left lower extremity. ACT 112: Negative or not required by law. Electronically signed by: Marlon Lopez M.D. 05/12/2019 7:06 AM
[2019-05-12 07:39] LABS: Hematocrit (blood only) 24.8 % (37-47); Hemoglobin 7.4 g/dL (12.0-16.0); Mean Corpuscular Hemoglobin 26.3 pg (25-34); Mean Corpuscular Hgb Conc 29.8 g/dL (32-36); Mean Corpuscular Volume 88.3 fL (80-100); Nucleated RBC # (auto) 0.92 K/uL (0-0); Nucleated RBC % (auto) 14.7 %; Platelet Count 9 K/uL (130-400); RDW Coefficient of Variation 19.3 % (11.5-14.5); Red Blood Count 2.81 M/uL (4.2-5.4); White Blood Count 6.25 K/uL (4.8-10.8)
[2019-05-12 07:40] LABS: Basophils # (auto) 0.13 K/uL (0-0.2); Basophils % (auto) 2.1 %; Eosinophils # (auto) 0.24 K/uL (0-0.5); Eosinophils % (auto) 3.8 %; Hypochromasia Present; Immature Granulocytes # (auto) 0.41 K/uL (0.00-0.02); Immature Granulocytes % (auto) 6.6 %; Lymphocytes # (auto) 0.77 K/uL (1.2-3.4); Lymphocytes % (auto) 12.3 %; Monocytes # (auto) 0.55 K/uL (0.11-0.59); Monocytes % (auto) 8.8 %; Neutrophils # (auto) 4.15 K/uL (1.4-6.5); Neutrophils % (auto) 66.4 %; Platelet Estimate SIGNIFIC DECREASED (Normal); Polychromasia 1+; Tear Drop Cells 1+
[2019-05-12 07:45] LABS: BUN Creatinine Ratio 29.2 (10-20); Calcium 8.8 mg/dl (8.5-10.1); Creatinine Clr Calc Pharmacy 69.1 ml/min; Est GFR (African American) 67.3; Est GFR (Non-African American) 58.1; Magnesium 1.6 mg/dl (1.8-2.4); Potassium 3.8 mmol/L (3.5-5.1)
[2019-05-12] MEDS: INSULIN ASPART 100 UNITS/ML 3 ML PEN SC SCH ×4 (08:56→22:00)
[2019-05-12] MEDS: INSULIN GLARGINE SOLOSTAR 100 UNITS/ML 3 ML PEN SC SCH ×2 (08:57→22:00)
[2019-05-12] MEDS: RIFAXIMIN 550 MG TABLET PO SCH ×2 (08:58→21:38)
[2019-05-12] MEDS: PANTOprazole 40 MG TAB PO SCH ×2 (08:58→21:38)
[2019-05-12] MEDS: TORSEMIDE 10 MG TAB PO SCH (08:58)
[2019-05-12] MEDS: METOPROLOL SUCC 50MG EXT REL TAB PO SCH ×2 (08:58→17:16)
[2019-05-12] MEDS: AMLODIPINE BESYLATE 5 MG TAB PO SCH ×2 (08:58→21:36)
[2019-05-12] MEDS: NYSTATIN POWDER 15GM BTL EXT SCH ×2 (08:59→21:37)
--- NOTE | 2019-05-12 09:04 | Hospitalist Progress Note ---
Date of Service May 12, 2019 Assessment & Plan (1) Epistaxis: (2) Thrombocytopenia: -63 y/o F with PMH metastatic breast cancer to bone, DM II, HTN, HLD, obesity hypoventilation syndrome, chronic respiratory failure on 3 L oxygen, chronic thrombocytopenia, chronic anemia, h/o DVT in the past, chronic right- sided heart failure, RA, atrial fibrillation, with recurrent epistaxis and thrombocytopenia (Recent hospitalization 03/24/2019-04/07/2019 for epistaxis, anemia requiring 5 units PRBCs, another hospitalization for the same problem and discharged on 04/23/2019 after a total of 2 units of platelets and 1 unit of PRBC on that admission) -"She saw Hem/Onc on 05/08/2019 and blood work showed platelets less than 10 and hemoglobin 7.1 and she received a unit of platelet transfusion last Saturday and Saturday she received a unit of blood transfusion, but on Saturday evening, she started to have nosebleeds. Because of nose bleed she came to the ER. The bleeding is from right nostril, status post nose pack in the ER, also receiving antiplatelets. Platelets 8,000 in the ER, hemoglobin 7.6. The patient was given Afrin spray and Rhino pack to control the bleeding." -Patient seen in AM of 05/12/2019 and s/p 1 unit platelet. However. platelets only marginally increased from admission 8K to 9K. There is nasal packing of right nare with dried blood outside of nostril. Patient breathing on oxymask supplementary oxygen. She is speaking in full sentences and answers questions appropriately. She denies of being in pain. She has swelling of lower extremities. She does not appear to be in distress o her breathing. Medical doctor expressed concern that given her history of metastatic breast cancer stage IV, recent previous hospitalization for epistaxis due to severe thrombocytopenia and this recurrent presentation for similar problems, that patient may be at risk of respiratory distress from fluid volume transfused blood products in the future. Patient affirms full code status and notes that if she were to intubated that she would not want to be on mechanical ventilation for very long. She agrees for further transfusion of platelets and 2 more platelets transfusions are ordered with intermittent IV Lasix. She agrees to be seen by palliative care. Palliative care consult notified. Patient allowed medical doctor to speak with her [phone] and he was updated. -There is no DVT on ultrasound of lower extremities for her history of deep vein thrombosis. have ordered DIVYA hose for now, pharmacologic DVT prophylaxis avoided because of severe thrombocytopenia avoiding tight compressions of SCDs for similar reasons and to avoid bruising of the legs. Called [facility] E[facility] office [phone] Kadie Wong about the current nasal packing on admission by ED physician and Dr. Wong informs medical doctor that the packing needs to remain for a total of 5 days and that ENT can be recalled if patient continues to remains in the hospital by that time versus outpatient appointment for removal Acute on chronic anemia Anemia -maintain hemoglobin above 7 Metastatic breast cancer -Follows with Dr. Christophe Light. was on 4 weekly Faslodex and Xgeva, but her last dose was in February 2020 and currently held for her low blood counts. -As per heme/oncology notes poor prognosis and not a candidate for cytotoxic chemotherapy. Hypercalcemia in the past Hypomagnesemia -check serum magnesium and calcium levels after transfusions Chronic respiratory failure: TYE Obesity Hypoventilation syndrome -On 3 L oxygen chronically -BIPAP with sleep as tolerated acute on Chronic right-sided congestive heart failure -give intermittent IV Lasix because of blood product transfusions -monitor bilateral lower extremity edema, courtney for urine output monitoring history of paroxysmal atrial fibrillation -Continue metoprolol succinate 50 mg twice daily -blood thinners are contraindicated Hypertension: -Continue amlodipine, metoprolol CKD (chronic kidney disease), stage III: -monitor renal function Type 2 diabetes mellitus with correction current use of insulin -A1c: 5.8 on 03/25/19 -insulin as needed History of hepatic encephalopathy in the past -currently on Xifaxan -follow ammonia levels if concerns for changes in mental status Subjective Patient seen in AM of 05/12/2019 and s/p 1 unit platelet. However. platelets only marginally increased from admission 8K to 9K. There is nasal packing of right nare with dried blood outside of nostril. Patient breathing on oxymask supplementary oxygen. She is speaking in full sentences and answers questions appropriately. She denies of being in pain. She has swelling of lower extremities. She does not appear to be in distress o her breathing. Medical doctor expressed concern that given her history of metastatic breast cancer stage IV, recent previous hospitalization for epistaxis due to severe thrombocytopenia and this recurrent presentation for similar problems, that patient may be at risk of respiratory distress from fluid volume transfused blood products in the future. Patient affirms full code status and notes that if she were to intubated that she would not want to be on mechanical ventilation for very long. She agrees for further transfusion of platelets and 2 more platelets transfusions are ordered with intermittent IV Lasix. She agrees to be seen by palliative care. Palliative care consult notified. Patient allowed medical doctor to speak with her [phone] and he was updated. There is no DVT on ultrasound of lower extremities for her history of deep vein thrombosis. have ordered DIVYA hose for now, pharmacologic DVT prophylaxis avoided because of severe thrombocytopenia avoiding tight compressions of SCDs for similar reasons and to avoid bruising of the legs. Called [facility] office [phone] Kadie Wong about the current nasal packing on admission by ED physician and Dr. Wong informs medical doctor that the packing needs to remain for a total of 5 days and that ENT can be recalled if thaddeus gar continues to remains in the hospital by that time versus outpatient appointment for removal Review of Systems Review of Systems: All systems reviewed & are unremarkable except as noted in HPI & below Physical Exam Constitutional: + ill appearing Eyes: PERRL, conjunctivae normal, anicteric sclerae EOM intact bilaterally ENMT: Nose: + nare abnormality (right nasal packing) Neck: normal visual inspection Respiratory: normal respiratory effort (on oxymask) and able to speak in complete sentences Cardiovascular: Rate/Rhythm: regular rate and regular rhythm Gastrointestinal (Abdomen): normal bowel sounds, soft, nontender, no hepatosplenomegaly Musculoskeletal: Head/Neck/Chest: normocephalic and head atraumatic bilateral lower extremity edema Neurologic: PERRL, EOMI, accommodation nl, no face palsy, no dysarthria Psychiatric: A+Ox3, euthymic affect Results & Data Vital Signs (Past 12 Hours) Vital Signs Temp Pulse Pulse Resp BP BP Pulse Ox 05/12/19 08:49 36.9 C 82 20 133/75 05/12/19 03:44 36.5 C 73 20 138/72 90 05/12/19 03:17 36.8 C 72 20 129/73 93 05/12/19 02:50 36.8 C 71 20 138/65 93 05/12/19 02:17 36.9 C 84 81 20 124/66 124/66 93 05/12/19 01:57 73 22 143/90 H 96 05/12/19 01:47 37.0 C 73 22 143/90 H 96 05/12/19 01:32 36.8 C 75 22 123/85 96 05/12/19 01:16 152/80 H 94 05/12/19 01:10 36.9 C 77 16 140/72 97 05/12/19 00:09 79 18 143/66 H 97 05/11/19 22:16 36.2 C L 77 22 131/76 98
[2019-05-12] MEDS: MAGNESIUM SULFATE / D5W 1 GM/100 ML BAG IV SCH ×2 (10:34→11:35)
[2019-05-12] MEDS: MAGNESIUM OXIDE 400 MG TAB PO SCH (10:34)
--- NOTE | 2019-05-12 11:05 | Palliative Care Consultation ---
Date of Consultation May 12, 2019 Assessment & Plan (1) Goals of care, counseling/discussion: -64 year old female patient with end stage breast cancer, lung mets, chronic thrombocytopenia, chronic respiratory failure, TYE on cpap at home, and others, presented to the hospital with epistaxis and low platelet count of 8k. CXR showed bibasilar opacities, low lung volumes, and known metastatic disease. Patient had nasal packing placed in the emergency room. She is being transfused with multiple units of platelets. Patient was in the hospital in March with this same exact issue-- and since she had nasal packing she was unable to wear bipap, became hypercarbic, had respiratory failure and was intubated. Patient was quickly extubated the next day and she returned to her baseline. Unfortunately, patient continues to have respiratory failure now and there is concern of need for intubation if her respiratory status continues to decline. Patient has not had chemo since I believe February, due to her chronic thrombocytopenia. She is also morbidly obese and extremely weak and debilitated. She has undergone rehab after several hospitalizations, but quickly becomes weak again after. She is mostly bed and wheelchair bound (has motorized scooter at home). Palliative care was consulted backin March to discuss goals. At that time, she wanted to remain full code and full treatment. palliative care is reconsulted to discuss goals of care again. -Met with patient in room 259-1 this morning. She is oriented x4, slightly drowsy but able to have full, meaningful conversation. -Patient stated, "I'm just tired. I can't keep doing this forever. I know I'm never going to get chemo again." -Discussed code status and possible intubation if further respiratory failure continues. Patient said she would be okay with short-term intubation if it was related to this acute event, but did not think she would want CPR. She wanted to wait until her was present to make any decisions. -Returned to patient's room this afternoon when , Guy, was present. Guy is tearful. Patient is more lethargic and seems more confused. She was refusing to try bipap when respiratory therapist was present. I talked to her at length and she agreed to try the full-face bipap mask. Respiratory therapist arrived and did place patient on the bipap mask on--patient tolerating well. -Spoke with patient's outside of the room for over an hour. Also phoned patient's brother, Franck Alvarado, for part of the conversation. -Discussed patient's overall condition-- chronic thrombocytopenia, metastatic breast cancer, weakness, chronic respiratory failure, recurrent epistaxis. We had a kalyani discussion about the fact that the patient is at end of life. Guy was tearful, but states he is aware of this. Guy stated, "I'm never going to want to give up, but I also know there is a line that can be crossed where I'm just doing more harm than good." -For now, we will make patient a DNR in the event of cardiac arrest, meaning NO CHEST COMPRESSIONS. However, he is still wanting full treatment otherwise. I discussed the risks of intubation such as further bleeding, continued respiratory failure with ventilator dependence, etc. Guy verbalizes understanding. Patient's brother Franck is retired RN and also verbalized understanding. -I did make the pulmonary/[place] health advocate team aware of patient's situation in case her respiratory status continues to worsen and she needs intubated. -Talked more with patient's Guy about the option of home hospice care should patient be able to get out of the hospital. We are hoping that patient's mental status improves and she is able to participate in the conversation. I will follow up tomorrow. (2) Anterior epistaxis: (3) Thrombocytopenia: (4) Chronic respiratory failure: History of Present Illness Attending Physician: Frandy Edmond MD History of Present Illness This 64 year old female patient with end stage breast cancer, lung mets, chronic thrombocytopenia, chronic respiratory failure, TYE on cpap at home, and others, presented to the hospital with epistaxis and low platelet count of 8k. CXR showed bibasilar opacities, low lung volumes, and known metastatic disease. Patient had nasal packing placed in the emergency room. She is being transfused with multiple units of platelets. Patient was in the hospital in March with this same exact issue-- and since she had nasal packing she was unable to wear bipap, became hypercarbic, had respiratory failure and was intubated. Patient was quickly extubated the next day and she returned to her baseline. Unfortunately, patient continues to have respiratory failure now and there is concern of need for intubation if her respiratory status continues to decline. Patient has not had chemo since I believe February, due to her chronic thrombocytopenia. She is also morbidly obese and extremely weak and debilitated. She has undergone rehab after several hospitalizations, but quickly becomes weak again after. She is mostly bed and wheelchair bound (has motorized scooter at home). Palliative care was consulted back in March to discuss goals. At that time, she wanted to remain full code and full treatment. palliative care is reconsulted to discuss goals of care again. Thank you kindly for this consult. Palliative care team will follow as needed. Allergies Allergy/AdvReac Type Severity Reaction Status Date / Time gabapentin AdvReac Hallucinati Verified 05/12/19 00:15 ng Home Medications Home Medications Medication Instructions Recorded Confirmed Type Lantus Solostar U-100 Insulin See Rx Instructions .ROUTE 05/16/18 05/11/19 Rx .COMPLEX #15 ml omeprazole 20 mg PO BID 01/06/19 05/11/19 History torsemide 20 mg PO DAILY PRN 01/06/19 05/11/19 History insulin aspart U-100 [Novolog 3 unit SUBCUT TIDM 03/24/19 05/11/19 History Flexpen U-100 Insulin] Xifaxan 550 mg PO BID 30 Days #60 tab 04/07/19 05/11/19 Rx metoprolol succinate 50 mg PO BID17 30 Days #30 tab 04/07/19 05/11/19 Rx oxycodone 5 mg PO Q6H #0 tab 04/07/19 05/11/19 Rx amlodipine 2.5 mg PO BID 05/11/19 05/12/19 History buspirone 5 mg PO BID 05/11/19 05/11/19 History nystatin [Nystop] 1 applic TOPICAL BID 05/11/19 05/11/19 History Patient History Medical History (Updated 05/12/19 @ 15:23 by REJI Jean) Anemia (Acute) ATN (acute tubular necrosis) Atrial fibrillation (Acute) Breast cancer metastasized to bone (Inactive) Chronic kidney disease (Inactive) Chronic right-sided congestive heart failure CKD (chronic kidney disease), stage III Diabetes mellitus, type II Goals of care, counseling/discussion Hepatic encephalopathy History of DVT (deep vein thrombosis) Hypercalcemia (Acute) Hyperlipidemia (Chronic) Hypertension (Chronic) Irritable bowel syndrome (Chronic) Metastatic breast cancer Obesity hypoventilation syndrome TYE (obstructive sleep apnea) Osteoarthritis (Chronic) Rheumatoid arthritis (Inactive) Right-sided heart failure Thrombocytopenia (Chronic) Surgical History History of hernia repair (Chronic) Family History Mother Stroke Diabetes Father Diabetes Social History Preferred Language: Greenlandic Communication Ability: Effective Visual Impairment: No Limitations Harbour Master Required: Yes Beliefs That Will Affect Care: None marital status: Current Living Situation: Spouse Other Information That Helps Us Care for You: No Feels Safe at Home: Yes Safety Concerns: Feels Safe At This Time Smoking Status: Never smoker Second Hand Exposure: Yes ; Hx Alcohol Use: No Hx Substance Use: No Review of Systems Constitutional: + weakness Cardiovascular: + edema; no chest pain Gastrointestinal: no abdominal pain and no nausea Musculoskeletal: no pain Neurologic: no confusion Physical Exam Constitutional: + ill appearing, + obese and + lethargic ENMT: Nose: + external nose abnormality (nasal plugs present. Dried blood on nose and face) Respiratory: + labored breathing; not tachypneic Auscultation: + diminished lung sounds Cardiovascular: Rate/Rhythm: + irregularly irregular Extremities: + edema (+2 BLE) Gastrointestinal (Abdomen): Inspection/Auscultation: normal bowel sounds Percussion/Palpation: abdomen soft Neurologic: moves all extremities and awake (but is lethargic); not confused Psychiatric: Orientation: oriented x 3 Insight: good insight Results & Data Vital Signs (Past 12 Hours) Vital Signs Temp Pulse Pulse Resp BP BP Pulse Ox 05/12/19 10:35 36.8 C 82 24 129/70 90 05/12/19 09:53 37.1 C 83 18 128/66 91 05/12/19 09:20 36.8 C 77 22 137/75 05/12/19 09:06 36.8 C 81 22 129/57 L 05/12/19 08:49 36.9 C 82 20 133/75 05/12/19 07:45 36.4 C L 81 18 128/70 90 05/12/19 03:44 36.5 C 73 20 138/72 90 05/12/19 03:17 36.8 C 72 20 129/73 93 05/12/19 02:50 36.8 C 71 20 138/65 93 05/12/19 02:17 36.9 C 84 81 20 124/66 124/66 93 05/12/19 01:57 73 22 143/90 H 96 05/12/19 01:47 37.0 C 73 22 143/90 H 96 05/12/19 01:32 36.8 C 75 22 123/85 96 05/12/19 01:16 152/80 H 94 05/12/19 01:10 36.9 C 77 16 140/72 97 05/12/19 00:09 79 18 143/66 H 97 PG Care Time/CCT Prolonged Care Time Prolonged Care Time: Yes Total Prolonged Care Time: 100 Coding Level of Care Code 41463 Inpt Consult Level 3 Diagnoses Goals of care, counseling/discussion Z71.89 Anterior epistaxis R04.0 Thrombocytopenia D69.6 Chronic respiratory failure J96.10 Additional Codes Prolonged Care Time - Prolonged Care Time: Yes ([id number]) Time Spent (min) 100 Time Spent Midlevel 100 minutes with >50% of time spent at bedside with patient and family during multiple visits discussing condition, goals, and code status.
[2019-05-12] MEDS ORDERED: FUROSEMIDE 20 MG in SYRINGE 0 ML IV ONE (11:55)
[2019-05-12 11:59] LABS: Albumin Level 2.4 gm/dl (3.4-5.0); BUN Creatinine Ratio 28.4 (10-20); Calcium 8.9 mg/dl (8.5-10.1); Creatinine Clr Calc Pharmacy 66.5 ml/min; Est GFR (African American) 64.3; Est GFR (Non-African American) 55.4; Magnesium 1.8 mg/dl (1.8-2.4); Potassium 4.1 mmol/L (3.5-5.1)
[2019-05-12 12:02] LABS: Albumin Globulin Ratio 0.5 (0.9-2); Bilirubin,Total 0.5 mg/dl (0.2-1); Globulin 4.6 gm/dl (2.5-4.0)
[2019-05-12 12:03] LABS: Hematocrit (blood only) 25.8 % (37-47); Hemoglobin 7.6 g/dL (12.0-16.0); Mean Corpuscular Hemoglobin 26.2 pg (25-34); Mean Corpuscular Hgb Conc 29.5 g/dL (32-36); Nucleated RBC # (auto) 1.19 K/uL (0-0); Nucleated RBC % (auto) 19.5 %; Platelet Count 12 K/uL (130-400); RDW Coefficient of Variation 19.4 % (11.5-14.5); RDW Standard Deviation 61.9 fL (36.4-46.3); White Blood Count 6.09 K/uL (4.8-10.8)
[2019-05-12] MEDS ORDERED: FUROSEMIDE 40 MG in SYRINGE 0 ML IV ONE (13:15)
[2019-05-12 13:21] LABS: Anisocytosis Present; Basophilic Stippling 1+; Hypochromasia Present; Platelet Estimate SIGNIFIC DECREASED (Normal); Polychromasia 1+; Tear Drop Cells 1+
[2019-05-12 13:27] LABS: ALC (manual) 0.43 K/uL (1.2-3.4); ANC (manual) 4.73 K/uL (1.4-6.5); Blast # (manual) 0.05 K/uL (0-0); Blast Cells % (manual) 0.9 %; Eosinophils # (manual) 0.38 K/uL (0-0.5); Eosinophils % (manual) 6.3 %; Lymphocytes # (manual) 0.43 K/uL (1.2-3.4); Lymphocytes % (manual) 7.1 %; Metamyelocytes # (manual) 0.11 K/uL (0-0); Metamyelocytes % (manual) 1.8 %; Monocytes # (manual) 0.16 K/uL (0.11-0.59); Monocytes % (manual) 2.7 %; Myelocytes # (manual) 0.22 K/uL (0-0); Myelocytes % (manual) 3.6 %; Neutrophils # (manual) 4.73 K/uL (1.4-6.5); Neutrophils % (manual) 77.6 %
--- NOTE | 2019-05-12 13:31 | XRay Report ---
XR chest 1V portable HISTORY: follow lung infiltrates COMPARISON: Chest 04/18/2019. FINDINGS: There are low lung volumes. Mild elevation the right hemidiaphragm, unchanged. Old, healed left-sided rib fractures. No pneumothorax. The heart remains mildly enlarged. Patchy bibasilar densit ies are noted. This has progressed on the left. There is also a healing left lower rib fracture. 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 IMPRESSION: 1. Bibasilar airspace opacities. This is slightly progressed on the left. 2. 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 3. Low lung volumes with mild elevation right hemidiaphragm. 4. Stable myocardial megaly. ACT 112: Negative or not required by law. Electronically signed by: Marlon Lopez M.D. 05/12/2019 1:29 PM
[2019-05-12 13:55] LABS: Base Excess VBG 3.3 mEq/L; Oxygen Saturation VBG 61.6 %; pH VBG 7.2 (7.36-7.41)
[2019-05-12] MEDS: OXYCODONE HCL IR 5 MG TAB (IMMEDIATE RELEASE) PO PRN (17:53)
[2019-05-12] MEDS ORDERED: Nursing to Pharmacy Communication ONE (23:07)
[2019-05-12] MEDS: ACETAMINOPHEN 325 MG TAB PO PRN (23:32)
[2019-05-13] MEDS: INSULIN ASPART 100 UNITS/ML 3 ML PEN SC SCH ×4 (00:55→17:15)
[2019-05-13] MEDS: OXYCODONE HCL IR 5 MG TAB (IMMEDIATE RELEASE) PO PRN ×5 (05:49→23:37)
[2019-05-13] MEDS ORDERED: D5W AND NSS 1,000 ML IV SCH (06:25)
[2019-05-13] MEDS: PANTOprazole 40 MG TAB PO SCH ×2 (07:56→20:55)
[2019-05-13] MEDS: RIFAXIMIN 550 MG TABLET PO SCH ×2 (07:56→20:55)
[2019-05-13] MEDS: TORSEMIDE 10 MG TAB PO SCH (07:56)
[2019-05-13] MEDS: MAGNESIUM OXIDE 400 MG TAB PO SCH (07:57)
[2019-05-13] MEDS: METOPROLOL SUCC 50MG EXT REL TAB PO SCH ×2 (07:57→16:34)
[2019-05-13] MEDS: AMLODIPINE BESYLATE 5 MG TAB PO SCH ×2 (07:58→20:55)
[2019-05-13] MEDS: NYSTATIN POWDER 15GM BTL EXT SCH ×2 (07:58→20:56)
[2019-05-13] MEDS: INSULIN GLARGINE SOLOSTAR 100 UNITS/ML 3 ML PEN SC SCH (08:00)
[2019-05-13 08:30] LABS: Base Excess VBG 4.8 mEq/L; Oxygen Saturation VBG 60.8 %; pH VBG 7.29 (7.36-7.41)
[2019-05-13 09:03] LABS: Hematocrit (blood only) 24.1 % (37-47); Hemoglobin 7.2 g/dL (12.0-16.0); Mean Corpuscular Hgb Conc 29.9 g/dL (32-36); Mean Corpuscular Volume 90.3 fL (80-100); Nucleated RBC # (auto) 0.51 K/uL (0-0); Nucleated RBC % (auto) 10.5 %; Platelet Count 15 K/uL (130-400); RDW Coefficient of Variation 19.3 % (11.5-14.5); RDW Standard Deviation 61.7 fL (36.4-46.3); Red Blood Count 2.67 M/uL (4.2-5.4); White Blood Count 4.83 K/uL (4.8-10.8)
[2019-05-13 09:04] LABS: Basophilic Stippling 1+; Basophils # (auto) 0.04 K/uL (0-0.2); Basophils % (auto) 0.8 %; Eosinophils # (auto) 0.19 K/uL (0-0.5); Eosinophils % (auto) 3.9 %; Hypochromasia Present; Immature Granulocytes # (auto) 0.27 K/uL (0.00-0.02); Immature Granulocytes % (auto) 5.6 %; Lymphocytes # (auto) 0.62 K/uL (1.2-3.4); Lymphocytes % (auto) 12.8 %; Monocytes # (auto) 0.43 K/uL (0.11-0.59); Monocytes % (auto) 8.9 %; Neutrophils # (auto) 3.28 K/uL (1.4-6.5); Polychromasia 1+
[2019-05-13 09:05] LABS: Albumin Level 2.3 gm/dl (3.4-5.0); BUN Creatinine Ratio 26.7 (10-20); Calcium 8.8 mg/dl (8.5-10.1); Creatinine Clr Calc Pharmacy 63.4 ml/min; Est GFR (African American) 60.8; Est GFR (Non-African American) 52.4; Magnesium 1.8 mg/dl (1.8-2.4); Potassium 4.2 mmol/L (3.5-5.1)
[2019-05-13 09:08] LABS: Albumin Globulin Ratio 0.5 (0.9-2); Bilirubin,Total 0.7 mg/dl (0.2-1); Globulin 4.4 gm/dl (2.5-4.0); Phosphorus 3.9 mg/dl (2.5-4.9); Total Protein 6.7 gm/dl (6.4-8.2)
[2019-05-13 09:35] LABS: Allen Test Pos (Pos); Base Excess ABG 5.7 mEq/L (-9-1.8); HCO3 ABG 32 mmol/L (19-24); Oxygen Saturation ABG 94.9 % (90-95); PCO2 ABG 56 mmHg (35-46); PO2 ABG 91 mmHg (80-95); pH ABG 7.38 (7.35-7.45)
--- NOTE | 2019-05-13 11:42 | Hospitalist Progress Note ---
Date of Service May 13, 2019 Assessment & Plan (1) Epistaxis: (1) Epistaxis: (2) Thrombocytopenia: -- s/p placement of rhinorocket, right nostril no recurrence so far -- Plt 15 k -- rhinorocket to be removed on Saturday will request ENT Dr. Wong to remove rhinorocket -- maintain Plt > 10k Acute on chronic anemia Anemia - Hg 7.2 -maintain hemoglobin above 7 Metastatic breast cancer - per Dr. Edmond's notes -Follows with Dr. Christophe Light. was on 4 weekly Faslodex and Xgeva, but her last dose was in February 2020 and currently held for her low blood counts. -As per heme/oncology notes poor prognosis and not a candidate for cytotoxic chemotherapy. Hypercalcemia in the past Hypomagnesemia -Ca and Mg within normal limits Acute on Chronic respiratory failure: TYE Obesity Hypoventilation syndrome - ABG showing respiratory acidosis, resolved remains on Bipap - will consult Pulmonaru acute on Chronic right-sided congestive heart failure - given IV Lasix - now on Torsemide PO daily negative fluid balance so far - monitor history of paroxysmal atrial fibrillation -Continue metoprolol succinate 50 mg twice daily -blood thinners are contraindicated Hypertension: -Continue amlodipine, metoprolol CKD (chronic kidney disease), stage III: -monitor renal function 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 -A1c: 5.8 on 03/25/19 -insulin as needed History of hepatic encephalopathy in the past -currently on Xifaxan -mental status at baseline Disposition Palliative care consulted now DNR/DNI, patient prefers to go home with hospice upon discharge Subjective ff up for epistaxis, thrombocytopenia seen resting in bed, comfortable, on Bipap, oriented x 3 states she feels improved compared to yesterday no recurrence of epistaxis denies shortness of breath, cough, chest pain no other symptoms Review of Systems Review of Systems: All systems reviewed & are unremarkable except as noted in HPI & below Physical Exam Physical Exam: General- oriented x 3, not in distress, speaks in sentences with no effort or accessory muscle use Head- atraumatic Eyes- PERRL, EOMI, anicteric ENT- (+) rhinorocket in the right nostril, no active bleeding Neck- supple, no JVD, no adenopathy, no thyromegaly; carotids +2/2, no bruits appreciated Lungs- clear to auscultation bilaterally, no rales/wheezes Heart- normal rate, regular rhythm; no murmur, no gallop, no rub appreciated Abdomen- normal bowel sounds, nondistended, soft, nontender, no masses or he patosplenomegaly Extremities-mild pretibial edema, no calf tenderness; peripheral pulses intact Neuro- alert, oriented x 3; CN 2-12 grossly intact; motor 5/5 bilaterally;sensation 100% on all extremities; no other gross focal neurologic deficits Skin- warm & dry Results & Data Vital Signs (Past 12 Hours) Vital Signs Temp Pulse Pulse Resp BP Pulse Ox 05/13/19 11:15 36.6 C 64 14 126/70 98 05/13/19 08:36 55 L 05/13/19 07:52 36.9 C 56 L 18 121/63 97 05/13/19 07:21 69 21 97 05/13/19 03:42 36.8 C 55 L 18 116/69 95 05/13/19 02:16 55 L 18 95 05/13/19 01:09 62 05/12/19 23:46 37.0 C 64 18 134/74 95 Laboratory Results Laboratory Results - last 24 hr 05/12/19 05/12/19 05/13/19 17:14 21:40 00:27 WBC RBC Hgb Hct MCV MCH MCHC RDW Std Deviation RDW Coeff of Flori Plt Count Immature Gran % (Auto) Neut % (Auto) Lymph % (Auto) [place] % (Auto) Eos % (Auto) Baso % (Auto) Immature Gran # (Auto) Neut # (Auto) Lymph # (Auto) [place] # (Auto) Eos # (Auto) Baso # (Auto) Absolute Nucleated RBC Nucleated RBC % (auto) Polychromasia Hypochromasia Basophilic Stippling ABG pH ABG pCO2 ABG pO2 ABG HCO3 ABG O2 Saturation ABG Base Excess Robert Test VBG pH VBG pCO2 VBG pO2 VBG HCO3 VBG O2 Saturation VBG Base Excess Barometric Pressure Oxygen Given Sodium Potassium Chloride Carbon Dioxide Anion Gap BUN Creatinine Est Cr Clr Drug Dosing Est GFR ( Amer) Est GFR (Non-Af Amer) BUN/Creatinine Ratio Glucose POC Glucose 101 H 79 97 Calcium Phosphorus Magnesium Total Bilirubin AST ALT Alkaline Phosphatase Total Protein Albumin Globulin Albumin/Globulin Ratio Blood Type Antibody Screen 05/13/19 05/13/19 05/13/19 06:06 07:20 08:08 WBC RBC Hgb Hct MCV MCH MCHC RDW Std Deviation RDW Coeff of Flori Plt Count Immature Gran % (Auto) Neut % (Auto) Lymph % (Auto) [place] % (Auto) Eos % (Auto) Baso % (Auto) Immature Gran # (Auto) Neut # (Auto) Lymph # (Auto) [place] # (Auto) Eos # (Auto) Baso # (Auto) Absolute Nucleated RBC Nucleated RBC % (auto) Polychromasia Hypochromasia Basophilic Stippling ABG pH ABG pCO2 ABG pO2 ABG HCO3 ABG O2 Saturation ABG Base Excess Robert Test VBG pH VBG pCO2 VBG pO2 VBG HCO3 VBG O2 Saturation VBG Base Excess Barometric Pressure Oxygen Given Sodium Potassium Chloride Carbon Dioxide Anion Gap BUN Creatinine Est Cr Clr Drug Dosing Est GFR ( Amer) Est GFR (Non-Af Amer) BUN/Creatinine Ratio Glucose POC Glucose 75 87 Calcium Phosphorus Magnesium Total Bilirubin AST ALT Alkaline Phosphatase Total Protein Albumin Globulin Albumin/Globulin Ratio Blood Type B Positive Antibody Screen NEGATIVE 05/13/19 05/13/19 05/13/19 08:08 08:08 08:17 WBC 4.83 RBC 2.67 L Hgb 7.2 L Hct 24.1 L MCV 90.3 MCH 27.0 MCHC 29.9 L RDW Std Deviation 61.7 H RDW Coeff of Flori 19.3 H Plt Count 15 L* Immature Gran % (Auto) 5.6 Neut % (Auto) 68.0 Lymph % (Auto) 12.8 Ellsworth % (Auto) 8.9 Eos % (Auto) 3.9 Baso % (Auto) 0.8 Immature Gran # (Auto) 0.27 H Neut # (Auto) 3.28 Lymph # (Auto) 0.62 L Ellsworth # (Auto) 0.43 Eos # (Auto) 0.19 Baso # (Auto) 0.04 Absolute Nucleated RBC 0.51 H Nucleated RBC % (auto) 10.5 Polychromasia 1+ Hypochromasia Present Basophilic Stippling 1+ ABG pH ABG pCO2 ABG pO2 ABG HCO3 ABG O2 Saturation ABG Base Excess Robert Test VBG pH 7.29 L VBG pCO2 70 H VBG pO2 35 VBG HCO3 33 VBG O2 Saturation 60.8 VBG Base Excess 4.8 Barometric Pressure 734.6 Oxygen Given Sodium 142 Potassium 4.2 Chloride 105 Carbon Dioxide 33 H Anion Gap 4.0 BUN 30 H Creatinine 1.11 Est Cr Clr Drug Dosing 63.4 Est GFR ( Amer) 60.8 Est GFR (Non-Af Amer) 52.4 BUN/Creatinine Ratio 26.7 H Glucose 80 POC Glucose Calcium 8.8 Phosphorus 3.9 Magnesium 1.8 Total Bilirubin 0.7 AST 25 ALT 9 L Alkaline Phosphatase 123 H Total Protein 6.7 Albumin 2.3 L Globulin 4.4 H Albumin/Globulin Ratio 0.5 L Blood Type Antibody Screen 05/13/19 05/13/19 05/13/19 08:17 09:25 11:25 WBC RBC Hgb Hct MCV MCH MCHC RDW Std Deviation RDW Coeff of Flori Plt Count Immature Gran % (Auto) Neut % (Auto) Lymph % (Auto) [place] % (Auto) Eos % (Auto) Baso % (Auto) Immature Gran # (Auto) Neut # (Auto) Lymph # (Auto) [place] # (Auto) Eos # (Auto) Baso # (Auto) Absolute Nucleated RBC Nucleated RBC % (auto) Polychromasia Hypochromasia Basophilic Stippling ABG pH 7.38 ABG pCO2 56 H ABG pO2 91 ABG HCO3 32 H ABG O2 Saturation 94.9 ABG Base Excess 5.7 H Robert Test Pos VBG pH Cancelled VBG pCO2 VBG pO2 VBG HCO3 VBG O2 Saturation VBG Base Excess Barometric Pressure 735.0 Oxygen Given 60% FiO2 Sodium Potassium Chloride Carbon Dioxide Anion Gap BUN Creatinine Est Cr Clr Drug Dosing Est GFR ( Amer) Est GFR (Non-Af Amer) BUN/Creatinine Ratio Glucose POC Glucose 90 Calcium Phosphorus Magnesium Total Bilirubin AST ALT Alkaline Phosphatase Total Protein Albumin Globulin Albumin/Globulin Ratio Blood Type Antibody Screen
--- NOTE | 2019-05-13 12:57 | Palliative Care Progress Note ---
Date of Service May 13, 2019 Assessment & Plan (1) Goals of care, counseling/discussion: -Patient is feeling better today as far as respiratory and mental status. She is less confused this morning than she was last evening. She is also less lethargic. -Tolerated full face bipap mask last night and today. ABGs improved-- normal pH, CO2 56 which is about normal for her. -Planning to meet this afternoon with patient, her Guy and brother Franck (if Franck is able to come), to discuss goals of care and end of life wishes. I made patient aware of this and she agrees it is okay to talk about these things with her and her family. Update this afternoon: -Lengthy family meeting with patient, her Guy, brother Franck, two family members Guadalupe and Casandra. -Discussed patient's overall medical condition. Discussed goals of care and patient's wishes. -Patient and family are aware of patient's incurable metastatic breast cancer, and the fact that she has been unable to receive any chemo for months now due to her re-hospitalizations, poor performance status and thrombocytopenia. Patient and family acknowledged that there is no further treatment planned for this. -Discussed code status. Patient very clearly stated several times that she DOES NOT WANT INTUBATED UNDER ANY CIRCUMSTANCE-- whether it is from acute/reversible respiratory failure or if it is because her heart has stopped. She also confirmed that she DOES NOT WANT CPR if her heart stops. patient's did have a hard time accepting this, but ultimately he is supportive of his 's decisions/wishes. -Patient will now be a full DNR/DNI. -Patient also stated that her goal is to go home and be comfortable. She does not want to suffer and is exhausted from her long vicente with this illness. We discussed home hospice care. Patient, and family are in agreement this is what her wishes are. -Patient is okay with continuing medical treatment while in hospital-- platelet or blood transfusions, medical treatment for electrolytes/fluid balance, etc. Once medically stable, plan is for home hospice. -Patient's Guy mentioned about patient going back to [place] to see "Dr. Regan" one last time to see if there is any further treatment to be offered. Patient stated that if she goes home and does improve and is feeling up for it, she would consider it. However, she would like to go home on hospice after this hospital stay. in agreement. -Message left for vocational case manager about plan. Updated Dr. Grace. - (2) Anterior epistaxis: (3) Thrombocytopenia: (4) Chronic respiratory failure: Subjective Patient is more awake today. she has tolerated the bipap mask overnight and this morning. Patient apologized and said she does not remember much of yesterday afternoon. Provided support. Review of Systems Review of Systems: + weakness + edema; no chest pain no abdominal pain and no nausea no pain no confusion Physical Exam Constitutional: + ill appearing and + obese ENMT: Nose: + external nose abnormality (nasal plugs present. Dried blood on nose and face) Respiratory: + labored breathing; not tachypneic Auscultation: + diminished lung sounds Cardiovascular: Rate/Rhythm: + irregularly irregular Extremities: + edema (+2 BLE) Gastrointestinal (Abdomen): Inspection/Auscultation: normal bowel sounds Percussion/Palpation: abdomen soft Neurologic: moves all extremities and awake; not confused Psychiatric: Orientation: oriented x 3 Insight: good insight Results & Data Vital Signs (Past 12 Hours) Vital Signs Temp Pulse Pulse Resp BP Pulse Ox 05/13/19 11:15 36.6 C 64 14 126/70 98 05/13/19 08:36 55 L 05/13/19 07:52 36.9 C 56 L 18 121/63 97 05/13/19 07:21 69 21 97 05/13/19 03:42 36.8 C 55 L 18 116/69 95 05/13/19 02:16 55 L 18 95 05/13/19 01:09 62 PG Care Time/CCT Prolonged Care Time Prolonged Care Time: Yes Total Prolonged Care Time: 100 Coding Level of Care Code 54748 Subseq Hosp Care Lvl 3 Diagnoses Goals of care, counseling/discussion Z71.89 Anterior epistaxis R04.0 Thrombocytopenia D69.6 Chronic respiratory failure J96.10 Additional Codes Prolonged Care Time - Prolonged Care Time: Yes ([id number]) Time Spent (min) 100 Time Spent Midlevel 100 minutes with >50% of the time spent at bedside with patient and family during multiple visits discussing condition, goals, wishes and hospice care.
[2019-05-13] MEDS ORDERED: Nursing to Pharmacy Communication ONE (21:08)
[2019-05-14] MEDS: OXYCODONE HCL IR 5 MG TAB (IMMEDIATE RELEASE) PO PRN ×3 (04:23→20:24)
[2019-05-14] MEDS: INSULIN ASPART 100 UNITS/ML 3 ML PEN SC SCH ×4 (08:02→20:07)
[2019-05-14] MEDS: AMLODIPINE BESYLATE 5 MG TAB PO SCH ×2 (08:03→20:03)
[2019-05-14] MEDS: PANTOprazole 40 MG TAB PO SCH ×2 (08:04→20:02)
[2019-05-14] MEDS: MAGNESIUM OXIDE 400 MG TAB PO SCH ×2 (08:04→20:06)
[2019-05-14] MEDS: NYSTATIN POWDER 15GM BTL EXT SCH ×2 (08:04→20:09)
[2019-05-14] MEDS: METOPROLOL SUCC 50MG EXT REL TAB PO SCH ×2 (08:04→17:11)
[2019-05-14] MEDS: RIFAXIMIN 550 MG TABLET PO SCH ×2 (08:04→20:02)
[2019-05-14] MEDS: TORSEMIDE 10 MG TAB PO SCH (08:04)
[2019-05-14 09:45] LABS: Hematocrit (blood only) 22.1 % (37-47); Hemoglobin 6.5 g/dL (12.0-16.0); Mean Corpuscular Hemoglobin 26.2 pg (25-34); Mean Corpuscular Hgb Conc 29.4 g/dL (32-36); Mean Corpuscular Volume 89.1 fL (80-100); Nucleated RBC # (auto) 0.18 K/uL (0-0); Nucleated RBC % (auto) 4.3 %; Platelet Count 13 K/uL (130-400); RDW Standard Deviation 61.1 fL (36.4-46.3); Red Blood Count 2.48 M/uL (4.2-5.4)
[2019-05-14 09:49] LABS: BUN Creatinine Ratio 24.5 (10-20); Calcium 8.8 mg/dl (8.5-10.1); Creatinine Clr Calc Pharmacy 57.6 ml/min; Est GFR (African American) 54.2; Est GFR (Non-African American) 46.8; Magnesium 1.6 mg/dl (1.8-2.4); Potassium 3.6 mmol/L (3.5-5.1)
[2019-05-14 09:59] LABS: Basophils % (auto) 0.5 %; Eosinophils % (auto) 2.9 %; Immature Granulocytes % (auto) 5.2 %; Lymphocytes % (auto) 8.1 %; Monocytes % (auto) 8.3 %
[2019-05-14] MEDS ORDERED: SODIUM CHLORIDE 0.9% 250 ML IV PRN (09:59)
[2019-05-14 10:00] LABS: Anisocytosis Present; Basophilic Stippling 1+; Basophils # (auto) 0.02 K/uL (0-0.2); Eosinophils # (auto) 0.12 K/uL (0-0.5); Immature Granulocytes # (auto) 0.22 K/uL (0.00-0.02); Lymphocytes # (auto) 0.34 K/uL (1.2-3.4); Monocytes # (auto) 0.35 K/uL (0.11-0.59); Neutrophils # (auto) 3.15 K/uL (1.4-6.5); Platelet Estimate SIGNIFIC DECREASED (Normal); Polychromasia 1+
[2019-05-14] MEDS ORDERED: FUROSEMIDE 20 MG in SYRINGE 0 ML IV ONE (10:30)
--- NOTE | 2019-05-14 12:14 | Hospitalist Progress Note ---
Date of Service May 14, 2019 Assessment & Plan (1) Epistaxis: (1) Epistaxis: (2) Thrombocytopenia: -- s/p placement of rhinorocket, right nostril no recurrence so far -- Plt 13 K --Requested ENT Dr. Wong to remove rhinorocket Given 1 unit of platelets No bleeding after removal of Rhino Rocket, will continue to monitor Recommendation of ENT Dr. Gibbs: humidified air/oxygen only -nasal saline spray [id number] starting tomorrow am afrin prn for bleeding along with holding pressure for 20 minutes packing is dissolvable, no abx ppx required Home recs: -humidified oxygen -nasal saline spray 6-8 times per day -vaseline application twice a day -- maintain Plt > 10k Acute on chronic anemia Anemia -- Hg 6.5 Given 1 unit of packed RBCs Improved today hemoglobin 8.0 Urticaria --Please secondary to blood transfusion No signs of anaphylaxis --Given Benadryl 25 mg IV and Solu-Medrol 40 mg IV Continue to monitor Metastatic breast cancer - per Dr. Edmond's notes -Follows with Dr. Christophe Light. was on 4 weekly Faslodex and Xgeva, but her last dose was in February 2020 and currently held for her low blood counts. -As per heme/oncology notes poor prognosis and not a candidate for cytotoxic chemotherapy. -Patient and family would like to seek opinion of stopperer assembler oncologist in [place] next month Hypercalcemia in the past Hypomagnesemia -Ca and Mg within normal limits Acute on Chronic respiratory failure: TYE Obesity Hypoventilation syndrome - ABG showing respiratory acidosis, resolved remains on Bipap -Pulmonary service consulted acute on Chronic right-sided congestive heart failure - given IV Lasix - now on Torsemide PO daily negative fluid balance so far - monitor history of paroxysmal atrial fibrillation -Continue metoprolol succinate 50 mg twice daily -blood thinners are contraindicated Hypertension: -Continue amlodipine, metoprolol CKD (chronic kidney disease), stage III: Creatinine 1.2 today, slightly elevated -monitor renal function 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 -A1c: 5.8 on 03/25/19 -insulin as needed Glycemic control consult placed as patient was given Solu-Medrol History of hepatic encephalopathy in the past -currently on Xifaxan -mental status at baseline Disposition Palliative care consulted now DNR/DNI, patient prefers to go home with hospice upon discharge Subjective Follow-up for thrombocytopenia, epistaxis, respiratory failure Seen sitting up in wheelchair, on oxygen mask, in good spirits, alert and oriented x3 States she feels better compared to yesterday No recurrence of epistaxis Denies chest pain, shortness of breath, dizziness Notified around 6:30 PM by RN as patient was having generalized pruritus Seen at the bedside, patient uncomfortable due to itching Denies shortness of breath, throat swelling, lip swelling, tongue swelling No other symptoms Was given stat dose of Benadryl 25 mg IV Symptoms slightly better as per patient Solu-Medrol 40 mg IV stat ordered Review of Systems Review of Systems: All systems reviewed & are unremarkable except as noted in HPI & below Physical Exam Physical Exam: General- oriented x 3, not in distress, speaks in sentences with no effort or accessory muscle use Eyes- anicteric Nose-Rhino Rocket in place, no signs of active bleeding Removed in the evening Neck- no JVD Lungs- clear breath sounds bilaterally, no rales/wheezes Heart- normal rate, regular rhythm; no murmurs Abdomen- normal bowel sounds, nondistended, soft, nontender Extremities- no pretibial edema, no calf tenderness Neuro- alert, oriented x 3; no gross focal neurologic deficits Skin- warm & dry On reevaluation at 6:30 PM, positive urticaria mostly at the back, mild in the chest, with erythema Results & Data ([facility]) Vital Signs (Past 12 Hours) Vital Signs Temp Pulse Pulse Resp BP BP Pulse Ox 05/14/19 12:10 36.8 C 72 18 112/57 L 94 05/14/19 11:28 36.4 C L 64 18 121/63 99 05/14/19 11:19 36.4 C L 63 18 126/60 99 05/14/19 11:13 36.4 C L 63 18 126/60 99 05/14/19 10:56 36.5 C 76 18 114/69 97 05/14/19 08:25 69 05/14/19 07:27 73 19 97 05/14/19 07:18 36.6 C 69 18 123/69 97 05/14/19 04:20 37 C 59 L 16 151/64 H 96 05/14/19 03:52 63 21 94 Laboratory Results Laboratory Results - last 24 hr 05/13/19 05/13/19 05/13/19 08:08 16:40 20:22 WBC RBC Hgb Hct MCV MCH MCHC RDW Std Deviation RDW Coeff of Flori Plt Count Immature Gran % (Auto) Neut % (Auto) Lymph % (Auto) [place] % (Auto) Eos % (Auto) Baso % (Auto) Immature Gran # (Auto) Neut # (Auto) Lymph # (Auto) [place] # (Auto) Eos # (Auto) Baso # (Auto) Absolute Nucleated RBC Nucleated RBC % (auto) Platelet Estimate Polychromasia Basophilic Stippling Anisocytosis Sodium Potassium Chloride Carbon Dioxide Anion Gap BUN Creatinine Est Cr Clr Drug Dosing Est GFR ( Amer) Est GFR (Non-Af Amer) BUN/Creatinine Ratio Glucose POC Glucose 104 H 136 H Calcium Magnesium Blood Type B Positive Antibody Screen NEGATIVE Crossmatch See Detail 05/14/19 05/14/19 05/14/19 07:40 09:17 09:17 WBC 4.20 L RBC 2.48 L Hgb 6.5 L* Hct 22.1 L MCV 89.1 MCH 26.2 MCHC 29.4 L RDW Std Deviation 61.1 H RDW Coeff of Flori 19.0 H Plt Count 13 L* Immature Gran % (Auto) 5.2 Neut % (Auto) 75.0 Lymph % (Auto) 8.1 Dickinson % (Auto) 8.3 Eos % (Auto) 2.9 Baso % (Auto) 0.5 Immature Gran # (Auto) 0.22 H Neut # (Auto) 3.15 Lymph # (Auto) 0.34 L Dickinson # (Auto) 0.35 Eos # (Auto) 0.12 Baso # (Auto) 0.02 Absolute Nucleated RBC 0.18 H Nucleated RBC % (auto) 4.3 Platelet Estimate SIGNIFIC DECREASED Polychromasia 1+ Basophilic Stippling 1+ Anisocytosis Present Sodium 140 Potassium 3.6 Chloride 102 Carbon Dioxide 34 H Anion Gap 4.0 BUN 30 H Creatinine 1.22 H Est Cr Clr Drug Dosing 57.6 Est GFR ( Amer) 54.2 Est GFR (Non-Af Amer) 46.8 BUN/Creatinine Ratio 24.5 H Glucose 183 H POC Glucose 143 H Calcium 8.8 Magnesium 1.6 L Blood Type Antibody Screen Crossmatch 05/14/19 05/14/19 05/14/19 11:40 16:10 16:38 WBC RBC Hgb 8.0 L Hct 26.1 L MCV MCH MCHC RDW Std Deviation RDW Coeff of Flori Plt Count Immature Gran % (Auto) Neut % (Auto) Lymph % (Auto) [place] % (Auto) Eos % (Auto) Baso % (Auto) Immature Gran # (Auto) Neut # (Auto) Lymph # (Auto) Dickinson # (Auto) Eos # (Auto) Baso # (Auto) Absolute Nucleated RBC Nucleated RBC % (auto) Platelet Estimate Polychromasia Basophilic Stippling Anisocytosis Sodium Potassium Chloride Carbon Dioxide Anion Gap BUN Creatinine Est Cr Clr Drug Dosing Est GFR ( Amer) Est GFR (Non-Af Amer) BUN/Creatinine Ratio Glucose POC Glucose 192 H 237 H Calcium Magnesium Blood Type Antibody Screen Crossmatch
[2019-05-14] MEDS ORDERED: OXYMETAZOLINE 0.05% 30 ML BTL PRN (12:19)
--- NOTE | 2019-05-14 13:32 | Palliative Care Progress Note ---
Date of Service May 14, 2019 Assessment & Plan (1) Goals of care, counseling/discussion: -Patient is feeling well today. She is tolerating bipap mask. Alert and oriented. -Patient still feels comfortable with the conversation we had yesterday. -We reviewed her living will that was completed during admission in March. It stated that Guy () is first health care agent, with patient's brother Franck Alvarado and friend Mis as alternatives. Also stated that in the event of end stage condition with little to no hope of recovery, she would not want any aggressive medical interventions and would not want tube feedings. Patient is comfortable with keeping this living will. -Plan is for home with hospice. Case management is following. -I did increase patient's oxycodone 5mg to Q4h PRN pain yesterday. (2) Anterior epistaxis: (3) Thrombocytopenia: (4) Chronic respiratory failure: Subjective Patient sitting up in wheelchair this morning with bipap mask on. Still feeling okay today, no acute events overnight. Blood is infusing. Review of Systems Review of Systems: + weakness no SOB at rest + edema; no chest pain no abdominal pain and no nausea no pain no confusion Physical Exam Constitutional: + ill appearing and + obese ENMT: Nose: + external nose abnormality (nasal plugs present. Dried blood on nose and face) Respiratory: + labored breathing; not tachypneic Auscultation: + diminished lung sounds Cardiovascular: Rate/Rhythm: + irregularly irregular Extremities: + edema (+2 BLE) Gastrointestinal (Abdomen): Inspection/Auscultation: normal bowel sounds Percussion/Palpation: abdomen soft Neurologic: moves all extremities and awake; not confused Psychiatric: Orientation: oriented x 3 Insight: good insight Results & Data Vital Signs (Past 12 Hours) Vital Signs Temp Pulse Pulse Resp BP BP Pulse Ox 05/14/19 12:10 36.8 C 72 18 112/57 L 94 05/14/19 11:58 36.5 C 62 18 114/64 97 05/14/19 11:28 36.4 C L 64 18 121/63 99 05/14/19 11:19 36.4 C L 63 18 126/60 99 05/14/19 11:13 36.4 C L 63 18 126/60 99 05/14/19 10:56 36.5 C 76 18 114/69 97 05/14/19 08:25 69 05/14/19 07:27 73 19 97 05/14/19 07:18 36.6 C 69 18 123/69 97 05/14/19 04:20 37 C 59 L 16 151/64 H 96 05/14/19 03:52 63 21 94 Supervising Physician Co-Signing Physician Notes Patient seen and examined. Return to room to speak with patient's as well as patient. Patient stated that she wanted to continue lab draws at home and continue platelet and blood transfusions as needed. She stated her goal was to be strong enough to get a second opinion at [place]. Collaborated with attending physician as well as case management regarding change in patient's goals. PE: Patient awake and alert, no acute distress, BiPAP in place HEENT: EOMI, hearing within normal limits Respirations: Labored with conversation, on BiPAP CV: Regular rate Abdomen: Morbidly obese Neuro: Alert and oriented x4 Agree with above note, assessment and plan as per REJI Rahman. Will continue to follow and support patient and family with medical decision making. Coding Level of Care Code 18400 Subseq Hosp Care Lvl 3 Diagnoses Goals of care, counseling/discussion Z71.89 Anterior epistaxis R04.0 Thrombocytopenia D69.6 Chronic respiratory failure J96.10 Time Spent (min) 55 Time Spent Midlevel 25 minutes with >50% of the time spent at bedside with patient and a friend discussing condition and GOC. Attending Spent 30 minutes in addition to the 25 minutes spent by REJI Rahman for a total of 55 minutes with greater than 50% of the time spent at bedside discussing goals of care.
[2019-05-14 16:18] LABS: Hematocrit (blood only) 26.1 % (37-47)
--- NOTE | 2019-05-14 16:55 | ENT Consultation ---
Date of Consultation May 14, 2019 Assessment & Plan (1) Epistaxis: Inpatient: -humidified air/oxygen only -nasal saline spray [id number] starting tomorrow am -afrin prn for bleeding along with holding pressure for 20 minutes -packing is dissolvable, no abx ppx required Home recs: -humidified oxygen -nasal saline spray 6-8 times per day -vaseline application twice a day Present on Admission?: Yes History of Present Illness Attending Physician: Randy Grace MD Patient had rhinorocket placed on Saturday, platelets are now at 13,000 and received another unit prior to my visit. No further bleeding since Saturday Allergies Allergy/AdvReac Type Severity Reaction Status Date / Time gabapentin AdvReac Hallucinati Verified 05/12/19 00:15 ng Home Medications Home Medications Medication Instructions Recorded Confirmed Type Lantus Solostar U-100 Insulin See Rx Instructions .ROUTE 05/16/18 05/11/19 Rx .COMPLEX #15 ml omeprazole 20 mg PO BID 01/06/19 05/11/19 History torsemide 20 mg PO DAILY PRN 01/06/19 05/11/19 History insulin aspart U-100 [Novolog 3 unit SUBCUT TIDM 03/24/19 05/11/19 History Flexpen U-100 Insulin] Xifaxan 550 mg PO BID 30 Days #60 tab 04/07/19 05/11/19 Rx metoprolol succinate 50 mg PO BID17 30 Days #30 tab 04/07/19 05/11/19 Rx oxycodone 5 mg PO Q6H #0 tab 04/07/19 05/11/19 Rx amlodipine 2.5 mg PO BID 05/11/19 05/12/19 History buspirone 5 mg PO BID 05/11/19 05/11/19 History nystatin [Nystop] 1 applic TOPICAL BID 05/11/19 05/11/19 History Patient History Medical History Anemia (Acute) ATN (acute tubular necrosis) Atrial fibrillation (Acute) Breast cancer metastasized to bone (Inactive) Chronic kidney disease (Inactive) Chronic right-sided congestive heart failure CKD (chronic kidney disease), stage III Diabetes mellitus, type II Goals of care, counseling/discussion Hepatic encephalopathy History of DVT (deep vein thrombosis) Hypercalcemia (Acute) Hyperlipidemia (Chronic) Hypertension (Chronic) Irritable bowel syndrome (Chronic) Metastatic breast cancer Obesity hypoventilation syndrome TYE (obstructive sleep apnea) Osteoarthritis (Chronic) Rheumatoid arthritis (Inactive) Right-sided heart failure Thrombocytopenia (Chronic) Surgical History History of hernia repair (Chronic) Family History Mother Stroke Diabetes Father Diabetes Social History Preferred Language: Burundian Communication Ability: Effective Communication Tools: Other Visual Impairment: No Limitations Program Production Specialist Required: Yes Beliefs That Will Affect Care: None marital status: Current Living Situation: Spouse Other Information That Helps Us Care for You: No Feels Safe at Home: Yes Safety Concerns: Feels Safe At This Time Smoking Status: Never smoker Second Hand Exposure: Yes ; Hx Alcohol Use: No Hx Substance Use: No Review of Systems Review of Systems: All systems reviewed & are unremarkable except as noted in HPI & below Physical Exam Physical Exam: Rhinorocket in place with no bleeding. Deflated and observed for further bleeding. Afrin applied. No further bleeding notes. Bleed arrest and surgicel with bacitracin applied. Afrin re-applied. No further bleeding noted. Results & Data Vital Signs (Past 12 Hours) Vital Signs Temp Pulse Pulse Resp BP BP Pulse Ox 05/14/19 16:02 36.6 C 71 16 121/68 99 05/14/19 15:45 36.3 C L 62 15 93/48 L 100 05/14/19 15:30 69 05/14/19 15:25 36.4 C L 70 18 91/43 L 100 05/14/19 15:24 36.8 C 66 18 129/73 100 05/14/19 15:23 36.7 C 62 18 114/64 97 05/14/19 12:10 36.8 C 72 18 112/57 L 94 05/14/19 11:58 36.5 C 62 18 114/64 97 05/14/19 11:28 36.4 C L 64 18 121/63 99 05/14/19 11:19 36.4 C L 63 18 126/60 99 05/14/19 11:13 36.4 C L 63 18 126/60 99 05/14/19 10:56 36.5 C 76 18 114/69 97 05/14/19 08:25 69 05/14/19 07:27 73 19 97 05/14/19 07:18 36.6 C 69 18 123/69 97
[2019-05-14] MEDS ORDERED: DiphenhydrAMINE HCL 50 MG/ML VIAL IV STA (18:23)
[2019-05-14] MEDS ORDERED: DiphenhydrAMINE HCL 50 MG/ML VIAL ONE (18:23)
--- NOTE | 2019-05-14 18:28 | Pulmonary Consultation ---
Date of Consultation May 14, 2019 Assessment & Plan (1) Acute on chronic respiratory failure with hypoxia and hypercapnia: --Acute on chronic hypercapnic hypoxic respiratory failure ABG from 05/13/2019 7.38/56/90 1/95% on 60% FiO2 Looking at the patient today she seems to be comfortable not in negative acute distress tolerating full facemask BiPAP. Would continue with the same especially given that she has recurrent epistaxis. ENT is already on board plans as per ENT for the epistaxis. --TYE Plan as above BiPAP nightly and PRN shortness of breath --Metastatic breast cancer Not getting chemotherapy because of recurrent bleeds and low platelets --ITP Plan as per hematology --DNR/DNI From pulmonary perspective she is already on optimal therapy. She is not complaining of any shortness of breath she already has a BiPAP at home with full facemask. I would continue with the same. Would transition steroids to p.o. if it is for COPD and not for ITP. No further interventions from pulmonary perspective. Will sign off recall if needed. (2) Thrombocytopenia: (3) Epistaxis: (4) TYE treated with BiPAP: History of Present Illness Attending Physician: Randy Grace MD History of Present Illness 64-year-old female with past medical history of metastatic breast cancer on chemotherapy every 4 weeks last was in February but was not able to get any treatment because of history also of idiopathic thrombocytopenia. History of epistaxis recurrent last time she was intubated because of epistaxis. TYE compliant with CPAP was admitted to the hospital because of epistaxis with nasal packing done in the ED. ENT has been called. Pulmonary consulted for acute on chronic hypercapnic respiratory failure. At the time of examination patient is on BiPAP with fullface mask. Patient has nasal rocket in the right nare. Patient is talking in full sentences not in acute respiratory distress. In pleasant mood. Denies any chest pain, no headache, no nausea, no vomiting, no shortness of breath. Denies any chest pain. The only thing she says that she was to take care of her epistaxis. No fever or chills. No cough, no hemoptysis. Allergies Allergy/AdvReac Type Severity Reaction Status Date / Time gabapentin AdvReac Hallucinati Verified 05/12/19 00:15 ng Home Medications Home Medications Medication Instructions Recorded Confirmed Type Lantus Solostar U-100 Insulin See Rx Instructions .ROUTE 05/16/18 05/11/19 Rx .COMPLEX #15 ml omeprazole 20 mg PO BID 01/06/19 05/11/19 History torsemide 20 mg PO DAILY PRN 01/06/19 05/11/19 History insulin aspart U-100 [Novolog 3 unit SUBCUT TIDM 03/24/19 05/11/19 History Flexpen U-100 Insulin] Xifaxan 550 mg PO BID 30 Days #60 tab 04/07/19 05/11/19 Rx metoprolol succinate 50 mg PO BID17 30 Days #30 tab 04/07/19 05/11/19 Rx oxycodone 5 mg PO Q6H #0 tab 04/07/19 05/11/19 Rx amlodipine 2.5 mg PO BID 05/11/19 05/12/19 History buspirone 5 mg PO BID 05/11/19 05/11/19 History nystatin [Nystop] 1 applic TOPICAL BID 05/11/19 05/11/19 History Patient History Medical History Anemia (Acute) ATN (acute tubular necrosis) Atrial fibrillation (Acute) Breast cancer metastasized to bone (Inactive) Chronic kidney disease (Inactive) Chronic right-sided congestive heart failure CKD (chronic kidney disease), stage III Diabetes mellitus, type II Goals of care, counseling/discussion Hepatic encephalopathy History of DVT (deep vein thrombosis) Hypercalcemia (Acute) Hyperlipidemia (Chronic) Hypertension (Chronic) Irritable bowel syndrome (Chronic) Metastatic breast cancer Obesity hypoventilation syndrome TYE (obstructive sleep apnea) Osteoarthritis (Chronic) Rheumatoid arthritis (Inactive) Right-sided heart failure Thrombocytopenia (Chronic) Surgical History History of hernia repair (Chronic) Family History Mother Stroke Diabetes Father Diabetes Social History Preferred Language: Indonesian Communication Ability: Effective Communication Tools: Other Visual Impairment: No Limitations Craniologist Required: Yes Beliefs That Will Affect Care: None marital status: Current Living Situation: Spouse Other Information That Helps Us Care for You: No Feels Safe at Home: Yes Safety Concerns: Feels Safe At This Time Smoking Status: Never smoker Second Hand Exposure: Yes ; Hx Alcohol Use: No Hx Substance Use: No Review of Systems Review of Systems: All systems reviewed & are unremarkable except as noted in HPI & below Physical Exam Physical Exam: Constitutional: No acute distress, on BiPAP while time of examination HEENT: EOMI, PERRLA, right-sided Rhino Rocket in place Respiratory system: Decreased air entry bilaterally, no wheeze, no rhonchi, no crackles CVS: S1-S2 positive, no murmurs or gallops Abdomen: Soft, nontender, nondistended, positive bowel sounds x4 Extremities: +2 pulses bilaterally radialis/ dorsalis pedis, no cyanosis, +2 edema bilateral lower extremity Neuro: Awake alert oriented x3 Psych: Normal mood and affect G/U: Positive Ta Skin: no rashes, warm and dry Lymphatic: no cervical or axillary lymphadenopathy Results & Data ([facility]) Vital Signs (Past 12 Hours) Vital Signs Temp Pulse Pulse Resp BP BP Pulse Ox 05/14/19 17:01 36.7 C 69 18 121/60 83 L 05/14/19 16:45 36.5 C 58 L 16 124/60 98 05/14/19 16:02 36.6 C 71 16 121/68 99 05/14/19 15:45 36.3 C L 62 15 93/48 L 100 05/14/19 15:30 69 05/14/19 15:25 36.4 C L 70 18 91/43 L 100 05/14/19 15:24 36.8 C 66 18 129/73 100 05/14/19 15:23 36.7 C 62 18 114/64 97 05/14/19 12:10 36.8 C 72 18 112/57 L 94 05/14/19 11:58 36.5 C 62 18 114/64 97 05/14/19 11:28 36.4 C L 64 18 121/63 99 05/14/19 11:19 36.4 C L 63 18 126/60 99 05/14/19 11:13 36.4 C L 63 18 126/60 99 05/14/19 10:56 36.5 C 76 18 114/69 97 05/14/19 08:25 69 05/14/19 07:27 73 19 97 05/14/19 07:18 36.6 C 69 18 123/69 97 05/14/19 16:10 05/14/19 09:17 PG Care Time/CCT Total # of Minutes Spent Total Time Spent with Patient: Total time spent is greater than 50% in coordination of care (as documented) at patient's floor/unit and/or counseling patient: Coding Level of Care Code 56369 Initial Inpt Care Lvl 3 Diagnoses Acute on chronic respiratory failure with hypoxia and hypercapnia J96.21; J96.22 Thrombocytopenia D69.6 Epistaxis R04.0 TYE treated with BiPAP G47.33
[2019-05-14] MEDS ORDERED: methylPREDNISolone 40 MG in SYRINGE 0 ML IV ONE (19:00)
[2019-05-14] MEDS ORDERED: PHARMACY GLYCEMIC MGMT CONSULT PRN (19:28)
[2019-05-14] MEDS ORDERED: LORATADINE 10 MG TAB PO ONE (20:22)
[2019-05-14] MEDS ORDERED: INSULIN GLARGINE SOLOSTAR 100 UNITS/ML 3 ML PEN SC SCH (21:00)
[2019-05-15] MEDS: INSULIN ASPART 100 UNITS/ML 3 ML PEN SC SCH ×6 (00:19→20:33)
[2019-05-15] MEDS: OXYCODONE HCL IR 5 MG TAB (IMMEDIATE RELEASE) PO PRN ×5 (02:19→23:00)
[2019-05-15] MEDS ORDERED: POTASSIUM CHLORIDE 20 MEQ TABCR PO STA (06:43)
[2019-05-15] MEDS ORDERED: MAGNESIUM SULFATE / D5W 1 GM/100 ML BAG IV ONE (07:00)
[2019-05-15] MEDS: METOPROLOL SUCC 50MG EXT REL TAB PO SCH ×2 (07:31→17:00)
[2019-05-15 07:43] LABS: Hematocrit (blood only) 28.7 % (37-47); Hemoglobin 8.9 g/dL (12.0-16.0); Mean Corpuscular Hemoglobin 27.1 pg (25-34); Mean Corpuscular Volume 87.2 fL (80-100); Nucleated RBC # (auto) 0.17 K/uL (0-0); Nucleated RBC % (auto) 3.2 %; Platelet Count 21 K/uL (130-400); RDW Coefficient of Variation 18.1 % (11.5-14.5); RDW Standard Deviation 55.9 fL (36.4-46.3); Red Blood Count 3.29 M/uL (4.2-5.4); White Blood Count 5.23 K/uL (4.8-10.8)
[2019-05-15 07:54] LABS: Anisocytosis Present; Basophils # (auto) 0.03 K/uL (0-0.2); Basophils % (auto) 0.6 %; Eosinophils # (auto) 0.04 K/uL (0-0.5); Eosinophils % (auto) 0.8 %; Immature Granulocytes # (auto) 0.38 K/uL (0.00-0.02); Immature Granulocytes % (auto) 7.3 %; Lymphocytes # (auto) 0.47 K/uL (1.2-3.4); Monocytes # (auto) 0.19 K/uL (0.11-0.59); Monocytes % (auto) 3.6 %; Neutrophils # (auto) 4.12 K/uL (1.4-6.5); Neutrophils % (auto) 78.7 %
[2019-05-15 07:58] LABS: BUN Creatinine Ratio 27.7 (10-20); Calcium 9.5 mg/dl (8.5-10.1); Creatinine Clr Calc Pharmacy 56.5 ml/min; Est GFR (African American) 52.6; Est GFR (Non-African American) 45.4; Magnesium 1.6 mg/dl (1.8-2.4); Potassium 4.1 mmol/L (3.5-5.1)
[2019-05-15] MEDS: RIFAXIMIN 550 MG TABLET PO SCH ×2 (08:06→20:26)
[2019-05-15] MEDS: PANTOprazole 40 MG TAB PO SCH ×2 (08:07→20:26)
[2019-05-15] MEDS: AMLODIPINE BESYLATE 5 MG TAB PO SCH ×2 (08:07→20:27)
[2019-05-15] MEDS: TORSEMIDE 10 MG TAB PO SCH (08:07)
[2019-05-15] MEDS: MAGNESIUM OXIDE 400 MG TAB PO SCH (08:08)
[2019-05-15] MEDS ORDERED: INSULIN GLARGINE SOLOSTAR 100 UNITS/ML 3 ML PEN SC ONE (08:30)
--- NOTE | 2019-05-15 09:21 | Pharmacy Report ---
Glycemic Control Consultation - Date of Service May 15, 2019 - Scope Scope: Glycemic Pharmacist consulted by Dr Grace on 05/14/19 for glycemic control and to write orders per [facility] inpatient glycemic control protocol - Objective Weight: 111.3 kg Accuchecks BSG (last 24hrs): 05/14/19 05/14/19 05/14/19 09:17 11:40 16:38 Glucose 183 H POC Glucose 192 H 237 H 05/14/19 05/15/19 05/15/19 20:00 00:01 03:47 Glucose POC Glucose 128 H 225 H 250 H 05/15/19 05/15/19 05/15/19 06:51 07:18 08:01 Glucose 214 H POC Glucose 230 H 236 H Laboratory Data (last 24hrs): 05/14/19 05/15/19 09:17 07:18 Potassium 3.6 4.1 Carbon Dioxide 34 H 35 H Anion Gap 4.0 3.0 Creatinine 1.22 H 1.25 H Est Cr Clr Drug Dosing 57.6 56.5 - Recent Pertinent Medications Outpatient Anti-diabetic Regimen: * Novolog 3 units TID with meals * Lantus 24-36 units based on blood sugar * A1c = 5.8 % 03/25/19 - may be unreliable d/t severe anemia The patient is currently receiving: * Basal insulin: Lantus 5 units every 24 hours * Correctional Insulin: Novolog Correction per scale ACHS Goal Range: Low 120 mg/dL - High 150 mg/dL Correction Factor: 30 mg/dL/unit * Prandial insulin: Per carb ratio of 1 unit per 10 grams CHO consumed Risk Factors for Insulin Resistance: * Steroids: Solu-medrol 40mg IV x 1 on 05/14 at 1900 * Diet: Type 2 DM - Assessment & Plan Assessment & Plan: ASSESSMENT: * 64 year old female, type 2 diabetic admitted for epistaxis and thrombocytopenia. Chronic anemia, received 1 unit of PRBCs (making A1c unreliable). PMH of metastatic breast cancer. * Pharmacy consulted as patient was euglycemic on Lantus 5 units daily and CF/CR of 30/10, but now received 1 dose of IV Solu-Medrol for acute on chronic respiratory failure and has steroid induced hyperglycemia. * Will increase Lantus to home dose as patient is eating now and give extra dose this morning for steroid coverage, will also tighten CF and CR and loosen as steroid effects wear off. PLAN FOR INPATIENT GLYCEMIC CONTROL: * Basal insulin - INCREASE * Lantus 20 units SQ x 1 dose last night and additional dose this AM for steroid coverage then, * Lantus SQ HS per scale * 20 units BSG < 110mg/dl * 25 units BSG 110-180mg/dl * 30 units BSG > 180mg/dl * Bolus insulin * NovoLog per scale ACHS or Q6hrs while NPO * Goal Range: Low 120 mg/dL - High 150 mg/dL - slightly higher goal range to prevent hypoglycemia for goals and comorbidities * TIGHTEN: Correction Factor: 12 mg/dL/unit * TIGHTEN: Nutritional / Prandial insulin per carb ratio of 1 unit per 3 grams CHO consumed * Please note that the plan above was derived based on current level of insulin resistance and hospital stress. These recommendations are appropriate for inpatient admission only. Plan of care upon discharge will need to be reassessed to avoid potential outpatient hypo/hyperglycemia. Thank you.
[2019-05-15] MEDS: NYSTATIN POWDER 15GM BTL EXT SCH ×2 (10:38→20:27)
[2019-05-15] MEDS: SODIUM CHLORIDE 0.65% NA SOLN 45 ML (OCEAN) SCH ×2 (17:04→22:21)
--- NOTE | 2019-05-15 18:40 | Hospitalist Progress Note ---
Date of Service May 15, 2019 Assessment & Plan (1) Epistaxis: (1) Epistaxis: (2) Thrombocytopenia: -- s/p placement of rhinorocket, right nostril no recurrence so far -- Plt 13 K --Requested ENT Dr. Wong to remove rhinorocket Given 1 unit of platelets No bleeding after removal of Rhino Rocket, will continue to monitor Recommendation of ENT Dr. Gibbs: humidified air/oxygen only -nasal saline spray [id number] starting tomorrow am afrin prn for bleeding along with holding pressure for 20 minutes packing is dissolvable, no abx ppx required Home recs: -humidified oxygen -nasal saline spray 6-8 times per day -vaseline application twice a day -- maintain Plt > 10k 05/15/2019 --No recurrence of epistaxis Blood count to 20,000 Continue nasal spray every 6 hours Acute on chronic anemia Anemia -- Hg 6.5 Given 1 unit of packed RBCs Improved today hemoglobin 8.9 Urticaria --Please secondary to blood transfusion No signs of anaphylaxis --Given Benadryl 25 mg IV and Solu-Medrol 40 mg IV --Resolved, still has some minimal pruritus, continue PRN Benadryl Metastatic breast cancer - per Dr. Edmond's notes -Follows with Dr. Christophe Light. was on 4 weekly Faslodex and Xgeva, but her last dose was in February 2020 and currently held for her low blood counts. -As per heme/oncology notes poor prognosis and not a candidate for cytotoxic chemotherapy. -Patient and family would like to seek opinion of audio narrator oncologist in [place] next month Hypercalcemia in the past Hypomagnesemia -Ca and Mg within normal limits Acute on Chronic respiratory failure: TYE Obesity Hypoventilation syndrome - ABG showing respiratory acidosis, resolved remains on Bipap -Pulmonary service consulted -Stable overall, will try to wean off BiPAP except for when asleep acute on Chronic right-sided congestive heart failure - given IV Lasix - now on Torsemide PO daily negative fluid balance so far -Positive bilateral leg edema progressed today, will check PRP and if renal function is stable we will go ahead and give Lasix IV history of paroxysmal atrial fibrillation -Continue metoprolol succinate 50 mg twice daily -blood thinners are contraindicated Hypertension: -Continue amlodipine, metoprolol CKD (chronic kidney disease), stage III: Creatinine 1.2 today, slightly elevated -monitor renal function Type 2 diabetes mellitus with moth exterminator current use of insulin -A1c: 5.8 on 03/25/19 -insulin as needed Glycemic control consult placed as patient was given Solu-Medrol History of hepatic encephalopathy in the past -currently on Xifaxan -mental status at baseline Disposition Palliative care consulted now DNR/DNI, patient prefers to go home with hospice upon discharge Anticipate discharge to home with home services when medically stable Subjective Follow-up for thrombocytopenia, epistaxis Seen sitting up in bed, using the BiPAP but comfortable, in good spirits, awake and alert States she feels improved again today No recurrence of epistaxis Denies headache, chest pain, shortness of breath, palpitations, dizziness Does report mild to moderate itching of her back today, no shortness of breath, throat swelling/lip swelling, tongue swelling Denies other symptoms Review of Systems Review of Systems: All systems reviewed & are unremarkable except as noted in HPI & below Physical Exam Physical Exam: General- oriented x 3, not in distress, speaks in sentences with no effort or accessory muscle use Eyes- anicteric Neck- no JVD Lungs- clear breath sounds bilaterally, no crackles, no wheezing Heart- normal rate, regular rhythm; no murmurs Abdomen- normal bowel sounds, nondistended, soft, nontender Extremities-1 lower leg edema edema, no calf tenderness Neuro- alert, oriented x 3; no gross focal neurologic deficits Skin- warm & dry Results & Data ([facility]) Vital Signs (Past 12 Hours) Vital Signs Temp Pulse Pulse Resp BP Pulse Ox 05/15/19 17:00 88 135/73 05/15/19 15:25 20 99 05/15/19 15:10 36.4 C L 88 20 118/72 99 05/15/19 11:32 36.7 C 88 20 117/74 99 05/15/19 07:39 36.3 C L 110 H 20 114/83 99 05/15/19 07:34 22 95 05/15/19 07:00 91 H
[2019-05-15] MEDS: ACETAMINOPHEN 325 MG TAB PO PRN (19:26)
[2019-05-15] MEDS: MAGNESIUM CHLORIDE 64MG DELAYED REL TAB PO SCH (20:27)
[2019-05-15] MEDS: INSULIN GLARGINE SOLOSTAR 100 UNITS/ML 3 ML PEN SC SCH (20:31)
[2019-05-15] MEDS ORDERED: FUROSEMIDE 20 MG in SYRINGE 0 ML IV ONE (21:30)
[2019-05-15 21:44] LABS: BUN Creatinine Ratio 33.4 (10-20); Calcium 9.3 mg/dl (8.5-10.1); Est GFR (African American) 58.9; Est GFR (Non-African American) 50.8; Potassium 3.7 mmol/L (3.5-5.1)
[2019-05-16] MEDS: ACETAMINOPHEN 325 MG TAB PO PRN ×2 (02:27→22:32)
[2019-05-16] MEDS: OXYCODONE HCL IR 5 MG TAB (IMMEDIATE RELEASE) PO PRN ×4 (04:07→19:35)
[2019-05-16] MEDS: SODIUM CHLORIDE 0.65% NA SOLN 45 ML (OCEAN) SCH ×4 (04:08→22:28)
[2019-05-16] MEDS: METOPROLOL SUCC 50MG EXT REL TAB PO SCH ×2 (08:27→17:35)
[2019-05-16] MEDS: AMLODIPINE BESYLATE 5 MG TAB PO SCH ×2 (08:27→20:44)
[2019-05-16] MEDS: RIFAXIMIN 550 MG TABLET PO SCH ×2 (08:27→20:46)
[2019-05-16] MEDS: MAGNESIUM CHLORIDE 64MG DELAYED REL TAB PO SCH ×2 (08:27→20:46)
[2019-05-16] MEDS: PANTOprazole 40 MG TAB PO SCH ×2 (08:28→20:45)
[2019-05-16] MEDS: TORSEMIDE 10 MG TAB PO SCH (08:28)
[2019-05-16] MEDS: INSULIN ASPART 100 UNITS/ML 3 ML PEN SC SCH ×4 (08:28→20:48)
[2019-05-16] MEDS: NYSTATIN POWDER 15GM BTL EXT SCH ×2 (08:30→20:43)
[2019-05-16 12:21] LABS: Hematocrit (blood only) 27.7 % (37-47); Hemoglobin 8.5 g/dL (12.0-16.0); Mean Corpuscular Hemoglobin 26.9 pg (25-34); Mean Corpuscular Hgb Conc 30.7 g/dL (32-36); Mean Corpuscular Volume 87.7 fL (80-100); Nucleated RBC % (auto) 9.7 %; Platelet Count 15 K/uL (130-400); RDW Coefficient of Variation 18.2 % (11.5-14.5); RDW Standard Deviation 57.3 fL (36.4-46.3); Red Blood Count 3.16 M/uL (4.2-5.4); White Blood Count 6.13 K/uL (4.8-10.8)
[2019-05-16 12:36] LABS: BUN Creatinine Ratio 34.9 (10-20); Calcium 9.6 mg/dl (8.5-10.1); Est GFR (African American) 59.5; Est GFR (Non-African American) 51.3; Potassium 3.7 mmol/L (3.5-5.1)
[2019-05-16 13:05] LABS: Basophils # (auto) 0.08 K/uL (0-0.2); Basophils % (auto) 1.3 %; Eosinophils # (auto) 0.11 K/uL (0-0.5); Eosinophils % (auto) 1.8 %; Hypochromasia Present; Immature Granulocytes # (auto) 0.39 K/uL (0.00-0.02); Immature Granulocytes % (auto) 6.4 %; Lymphocytes % (auto) 9.8 %; Monocytes % (auto) 8.2 %; Neutrophils # (auto) 4.45 K/uL (1.4-6.5); Neutrophils % (auto) 72.5 %; Polychromasia 1+; Spherocytes 1+
--- NOTE | 2019-05-16 14:58 | Hospitalist Progress Note ---
Date of Service delayed entry date of service noted below May 16, 2019 Assessment & Plan (1) Epistaxis: (1) Epistaxis: (2) Thrombocytopenia: -- s/p placement of rhinorocket, right nostril no recurrence so far -- Plt 13 K --Requested ENT Dr. Wong to remove rhinorocket Given 1 unit of platelets No bleeding after removal of Rhino Rocket, will continue to monitor Recommendation of ENT Dr. Gibbs: humidified air/oxygen only -nasal saline spray [id number] starting tomorrow am afrin prn for bleeding along with holding pressure for 20 minutes packing is dissolvable, no abx ppx required Home recs: -humidified oxygen -nasal saline spray 6-8 times per day -vaseline application twice a day -- maintain Plt > 10k 05/16/2019 --No recurrence of epistaxis Plt 15k 1 unit plt ordered Continue nasal spray every 6 hours Acute on chronic anemia Anemia -- Hg 6.5 Given 1 unit of packed RBCs Hg remains 8 Urticaria --Please secondary to blood transfusion No signs of anaphylaxis --Given Benadryl 25 mg IV and Solu-Medrol 40 mg IV --Resolved, still has some minimal pruritus, continue PRN Benadryl Metastatic breast cancer - per Dr. Edmond's notes -Follows with Dr. Christophe Light. was on 4 weekly Faslodex and Xgeva, but her last dose was in February 2020 and currently held for her low blood counts. -As per heme/oncology notes poor prognosis and not a candidate for cytotoxic chemotherapy. -Patient and family would like to seek opinion of commanding officer motorized squad oncologist in [place] next month Hypercalcemia in the past Hypomagnesemia -Ca and Mg within normal limits Acute on Chronic respiratory failure: TYE Obesity Hypoventilation syndrome - ABG showing respiratory acidosis, resolved remains on Bipap -Pulmonary service consulted -Stable overall, Bipap when sleeping acute on Chronic right-sided congestive heart failure - given IV Lasix - now on Torsemide PO daily negative fluid balance so far Lasix IV given history of paroxysmal atrial fibrillation -Continue metoprolol succinate 50 mg twice daily -blood thinners are contraindicated Hypertension: -Continue amlodipine, metoprolol CKD (chronic kidney disease), stage III: Creatinine 1.2 today, slightly elevated -monitor renal function Type 2 diabetes mellitus with fdc current use of insulin -A1c: 5.8 on 12/11/19 -insulin as needed Glycemic control consult placed as patient was given Solu-Medrol History of hepatic encephalopathy in the past -currently on Xifaxan -mental status at baseline Disposition Palliative care consulted now DNR/DNI, patient prefers to go home with hospice upon discharge Anticipate discharge to home with home services when medically stable Subjective ff up for epistaxis, thrombocytopenia seen resting in bedside chair, comfortable on oxymask alert, oriented x 3 states she feels improved compared to previous day was having pruritus on her back improved with benadryl no recurrence of epistaxis no sob, palpitations, dizziness no other symptoms Review of Systems Review of Systems: All systems reviewed & are unremarkable except as noted in HPI & below Physical Exam 2 Physical Exam: General- oriented x 3, not in distress, speaks in sentences with no effort or accessory muscle use Eyes- anicteric Nose- no epistaxis Neck- no JVD Lungs- clear breath sounds bilaterally Heart- normal rate, regular rhythm; no murmurs Abdomen- normal bowel sounds, nondistended, soft, nontender Extremities- mild lower leg edema, no calf tenderness Neuro- alert, oriented x 3; no gross focal neurologic deficits Skin- warm & dry Results & Data ([facility]) Vital Signs (Past 12 Hours) Vital Signs Temp Pulse Pulse Resp BP Pulse Ox 05/16/19 11:59 36.5 C 95 H 20 107/72 98 05/16/19 08:02 36.7 C 71 20 115/73 99 05/16/19 08:00 93 H 05/16/19 04:00 36.0 C L 94 H 19 142/89 H 95 05/16/19 03:12 96 H 19 96 05/16/19 02:56 111 H
[2019-05-16] MEDS ORDERED: ACETAMINOPHEN 500 MG TAB PO ONE (14:59)
[2019-05-16] MEDS ORDERED: FUROSEMIDE 40 MG in SYRINGE 0 ML IV ONE (15:15)
[2019-05-16] MEDS: INSULIN GLARGINE SOLOSTAR 100 UNITS/ML 3 ML PEN SC SCH (20:47)
[2019-05-17] MEDS: OXYCODONE HCL IR 5 MG TAB (IMMEDIATE RELEASE) PO PRN ×4 (03:17→20:03)
[2019-05-17] MEDS: SODIUM CHLORIDE 0.65% NA SOLN 45 ML (OCEAN) SCH ×4 (04:40→22:04)
[2019-05-17] MEDS: ACETAMINOPHEN 325 MG TAB PO PRN (07:31)
[2019-05-17] MEDS: TORSEMIDE 10 MG TAB PO SCH (07:31)
[2019-05-17] MEDS: PANTOprazole 40 MG TAB PO SCH ×2 (07:31→20:03)
[2019-05-17] MEDS: MAGNESIUM CHLORIDE 64MG DELAYED REL TAB PO SCH ×2 (07:32→20:03)
[2019-05-17] MEDS: RIFAXIMIN 550 MG TABLET PO SCH ×2 (07:32→20:03)
[2019-05-17] MEDS: NYSTATIN POWDER 15GM BTL EXT SCH ×2 (07:33→20:04)
[2019-05-17] MEDS: METOPROLOL SUCC 50MG EXT REL TAB PO SCH ×2 (07:35→15:54)
[2019-05-17] MEDS: AMLODIPINE BESYLATE 5 MG TAB PO SCH ×2 (07:35→20:05)
[2019-05-17] MEDS: INSULIN ASPART 100 UNITS/ML 3 ML PEN SC SCH ×4 (08:33→21:18)
[2019-05-17 09:33] LABS: BUN Creatinine Ratio 38.7 (10-20); Calcium 8.9 mg/dl (8.5-10.1); Creatinine Clr Calc Pharmacy 55.6 ml/min; Est GFR (African American) 52.1; Potassium 3.9 mmol/L (3.5-5.1)
[2019-05-17 09:42] LABS: Hemoglobin 8.6 g/dL (12.0-16.0); Mean Corpuscular Hemoglobin 26.7 pg (25-34); Mean Corpuscular Hgb Conc 30.7 g/dL (32-36); Nucleated RBC # (auto) 0.31 K/uL (0-0); Nucleated RBC % (auto) 5.8 %; Platelet Count 18 K/uL (130-400); RDW Coefficient of Variation 18.3 % (11.5-14.5); RDW Standard Deviation 57.4 fL (36.4-46.3); Red Blood Count 3.22 M/uL (4.2-5.4); White Blood Count 5.29 K/uL (4.8-10.8)
[2019-05-17 09:43] LABS: ALC (manual) 0.28 K/uL (1.2-3.4); ANC (manual) 4.22 K/uL (1.4-6.5); Dohle Bodies 1+; Eosinophils # (manual) 0.19 K/uL (0-0.5); Eosinophils % (manual) 3.5 %; Lymphocytes # (manual) 0.28 K/uL (1.2-3.4); Lymphocytes % (manual) 5.3 %; Metamyelocytes # (manual) 0.28 K/uL (0-0); Metamyelocytes % (manual) 5.3 %; Monocytes # (manual) 0.33 K/uL (0.11-0.59); Monocytes % (manual) 6.2 %; Neutrophils # (manual) 4.22 K/uL (1.4-6.5); Neutrophils % (manual) 79.7 %; Platelet Estimate SIGNIFIC DECREASED (Normal); Spherocytes 1+; Stomatocytes 1+
--- NOTE | 2019-05-17 14:56 | Pharmacy Report ---
Pharmacy Glycemic Short Note 2 - Date of Service May 17, 2019 - Glycemic Short BSG Results (Last 24 hours): 05/16/19 05/16/19 05/17/19 16:12 20:13 07:38 Glucose POC Glucose 220 H 173 H 135 H 05/17/19 05/17/19 08:58 11:28 Glucose 248 H POC Glucose 263 H OUTPATIENT ANTIDIABETIC REGIMEN: * Novolog 3 units TID with meals * Lantus 24-36 units based on blood sugar * A1c = 5.8 % 03/25/19 - may be unreliable d/t severe anemia ASSESSMENT: 05/17/19 * Patient is currently receiving an average of 42 units of insulin per day, steroid effects have diminished and CF/CR parameters were loosened to prevent hypoglycemia yeaterday. * 25 units of basal insulin * 17 units of prandial/correctional insulin * BSGs ranging 130-263mg/dl over the past 24hrs * AM Fasting BSG = 135mg/dl therefore Basal insulin can continue on scale * Post-prandial BSGs are elevated/BSGs rise throughout the day therefore Tighten CR slightly. 05/15/19 * 64 year old female, type 2 diabetic admitted for epistaxis and th rombocytopenia. Chronic anemia, received 1 unit of PRBCs (making A1c unreliable). PMH of metastatic breast cancer. * Pharmacy consulted as patient was euglycemic on Lantus 5 units daily and CF/CR of 30/10, but now received 1 dose of IV Solu-Medrol for acute on chronic respiratory failure and has steroid induced hyperglycemia. * Will increase Lantus to home dose as patient is eating now and give extra dose this morning for steroid coverage, will also tighten CF and CR and loosen as steroid effects wear off. PLAN FOR INPATIENT GLYCEMIC CONTROL: * Basal insulin - * 20 units BSG < 110mg/dl * 25 units BSG 110-180mg/dl * 30 units BSG > 180mg/dl * Bolus insulin * NovoLog per scale ACHS or Q6hrs while NPO * Goal Range: Low 120 mg/dL - High 150 mg/dL - slightly higher goal range to prevent hypoglycemia for goals and comorbidities * Correction Factor: 20 mg/dL/unit * tighten: Nutritional / Prandial insulin per carb ratio of 1 unit per 6 grams CHO consumed
[2019-05-17] MEDS: INSULIN GLARGINE SOLOSTAR 100 UNITS/ML 3 ML PEN SC SCH (21:20)
--- NOTE | 2019-05-17 23:54 | Hospitalist Progress Note ---
Date of Service May 17, 2019 Assessment & Plan (1) Epistaxis: (1) Epistaxis: (2) Thrombocytopenia: -- s/p placement of rhinorocket, right nostril no recurrence so far -- Plt 13 K --Requested ENT Dr. Wong to remove rhinorocket Given 1 unit of platelets No bleeding after removal of Rhino Rocket, will continue to monitor Recommendation of ENT Dr. Gibbs: humidified air/oxygen only -nasal saline spray [id number] starting tomorrow am afrin prn for bleeding along with holding pressure for 20 minutes packing is dissolvable, no abx ppx required Home recs: -humidified oxygen -nasal saline spray 6-8 times per day -vaseline application twice a day -- maintain Plt > 10k 05/17/2019 --No recurrence of epistaxis Plt 18k monitor Continue nasal spray every 6 hours -- will try to contact [facility] for possible transfer check with Insurance for transportation Acute on chronic anemia Anemia -- Hg 6.5 Given 1 unit of packed RBCs Hg remains 8 Urticaria --Please secondary to blood transfusion No signs of anaphylaxis --Given Benadryl 25 mg IV and Solu-Medrol 40 mg IV --Resolved,\, continue PRN Benadryl Metastatic breast cancer - per Dr. Edmond's notes -Follows with Dr. Christophe Light. was on 4 weekly Faslodex and Xgeva, but her last dose was in February 2020 and currently held for her low blood counts. -As per heme/oncology notes poor prognosis and not a candidate for cytotoxic chemotherapy. -Patient and family would like to seek opinion of guest relations agent oncologist in [place] May 26 management per # 1 Hypercalcemia in the past Hypomagnesemia -Ca and Mg within normal limits Acute on Chronic respiratory failure: TYE Obesity Hypoventilation syndrome - ABG showing respiratory acidosis, resolved remains on Bipap -Pulmonary service consulted -Stable overall, Bipap when sleeping acute on Chronic right-sided congestive heart failure - given IV Lasix - now on Torsemide PO daily negative fluid balance so far Lasix IV given history of paroxysmal atrial fibrillation -Continue metoprolol succinate 50 mg twice daily -blood thinners are contraindicated Hypertension: -Continue amlodipine, metoprolol CKD (chronic kidney disease), stage III: Creatinine 1.2 today, slightly elevated -monitor renal function Type 2 diabetes mellitus with roasterman current use of insulin -A1c: 5.8 on 03/25/19 -insulin as needed Glycemic control consult placed as patient was given Solu-Medrol History of hepatic encephalopathy in the past -currently on Xifaxan -mental status at baseline Disposition Palliative care consulted now DNR/DNI, patient prefers to go home with hospice upon discharge Anticipate discharge to home with home services when medically stable Subjective ff up for epistaxis, etc seen resting in chair, comfortable not in distress no epistaxis recurrence no SOB occasional pruritus no other symptoms Review of Systems Review of Systems: All systems reviewed & are unremarkable except as noted in HPI & below Physical Exam Physical Exam: General- oriented x 3, not in distress, speaks in sentences with no effort or accessory muscle use Eyes- anicteric nose- no bleeding Neck- no JVD Lungs- clear BS bilaterally Heart- normal rate, regular rhythm; no murmurs Abdomen- normal bowel sounds, nondistended, soft, nontender Extremities- mild lower leg edema, no calf tenderness Neuro- alert, oriented x 3; no gross focal neurologic deficits Skin- warm & dry Results & Data ([facility]) Vital Signs (Past 12 Hours) Vital Signs Temp Pulse Pulse Resp BP Pulse Ox 05/17/19 23:00 35.7 C L 91 H 19 109/74 97 05/17/19 22:25 90 19 97 05/17/19 19:00 37.6 C 106 H 19 113/69 97 05/17/19 16:00 96 H 05/17/19 15:48 37.1 C 105 H 22 104/65 97 Laboratory Results Laboratory Results - last 24 hr 05/17/19 05/17/19 05/17/19 07:38 08:58 08:58 WBC 5.29 RBC 3.22 L Hgb 8.6 L Hct 28.0 L MCV 87.0 MCH 26.7 MCHC 30.7 L RDW Std Deviation 57.4 H RDW Coeff of Flori 18.3 H Plt Count 18 L* Absolute Nucleated RBC 0.31 H Nucleated RBC % (auto) 5.8 Neutrophils % (Manual) 79.7 Lymphocytes % (Manual) 5.3 Monocytes % (Manual) 6.2 Eosinophils % (Manual) 3.5 Metamyelocytes % (Man) 5.3 Neutrophils # (Manual) 4.22 Total Absolute Neuts 4.22 Lymphocytes # (Manual) 0.28 L Total Abs Lymphocytes 0.28 L Monocytes # (Manual) 0.33 Eosinophils # (Manual) 0.19 Metamyelocytes # (Man) 0.28 H Dohle Bodies 1+ Platelet Estimate SIGNIFIC DECREASED Spherocytes 1+ Stomatocytes 1+ Sodium 137 Potassium 3.9 Chloride 92 L Carbon Dioxide 38 H Anion Gap 7.0 BUN 49 H Creatinine 1.26 H Est Cr Clr Drug Dosing 55.6 Est GFR ( Amer) 52.1 Est GFR (Non-Af Amer) 45.0 BUN/Creatinine Ratio 38.7 H Glucose 248 H POC Glucose 135 H Calcium 8.9 05/17/19 05/17/19 05/17/19 11:28 16:44 21:13 WBC RBC Hgb Hct MCV MCH MCHC RDW Std Deviation RDW Coeff of Flori Plt Count Absolute Nucleated RBC Nucleated RBC % (auto) Neutrophils % (Manual) Lymphocytes % (Manual) Monocytes % (Manual) Eosinophils % (Manual) Metamyelocytes % (Man) Neutrophils # (Manual) Total Absolute Neuts Lymphocytes # (Manual) Total Abs Lymphocytes Monocytes # (Manual) Eosinophils # (Manual) Metamyelocytes # (Man) Dohle Bodies Platelet Estimate Spherocytes Stomatocytes Sodium Potassium Chloride Carbon Dioxide Anion Gap BUN Creatinine Est Cr Clr Drug Dosing Est GFR ( Amer) Est GFR (Non-Af Amer) BUN/Creatinine Ratio Glucose POC Glucose 263 H 177 H 201 H Calcium
[2019-05-18] MEDS: SODIUM CHLORIDE 0.65% NA SOLN 45 ML (OCEAN) SCH ×4 (04:01→22:09)
[2019-05-18] MEDS: OXYCODONE HCL IR 5 MG TAB (IMMEDIATE RELEASE) PO PRN ×4 (06:06→21:35)
[2019-05-18 08:12] LABS: BUN Creatinine Ratio 42.3 (10-20); Calcium 9.2 mg/dl (8.5-10.1); Creatinine Clr Calc Pharmacy 57.9 ml/min; Est GFR (African American) 54.8; Est GFR (Non-African American) 47.2; Potassium 3.6 mmol/L (3.5-5.1)
[2019-05-18 08:14] LABS: Hematocrit (blood only) 27.7 % (37-47); Hemoglobin 8.5 g/dL (12.0-16.0); Mean Corpuscular Hemoglobin 26.6 pg (25-34); Mean Corpuscular Hgb Conc 30.7 g/dL (32-36); Mean Corpuscular Volume 86.6 fL (80-100); Nucleated RBC # (auto) 0.29 K/uL (0-0); Nucleated RBC % (auto) 4.8 %; Platelet Count 18 K/uL (130-400); RDW Coefficient of Variation 18.3 % (11.5-14.5); RDW Standard Deviation 57.4 fL (36.4-46.3); White Blood Count 6.01 K/uL (4.8-10.8)
[2019-05-18 08:15] LABS: Basophils # (auto) 0.05 K/uL (0-0.2); Basophils % (auto) 0.8 %; Eosinophils # (auto) 0.16 K/uL (0-0.5); Eosinophils % (auto) 2.7 %; Giant Platelets 1+; Hypochromasia Present; Immature Granulocytes # (auto) 0.42 K/uL (0.00-0.02); Lymphocytes # (auto) 0.67 K/uL (1.2-3.4); Lymphocytes % (auto) 11.1 %; Monocytes # (auto) 0.57 K/uL (0.11-0.59); Monocytes % (auto) 9.5 %; Neutrophils # (auto) 4.14 K/uL (1.4-6.5); Neutrophils % (auto) 68.9 %; Platelet Estimate SIGNIFIC DECREASED (Normal); Polychromasia 1+; Spherocytes 1+
[2019-05-18] MEDS: MAGNESIUM CHLORIDE 64MG DELAYED REL TAB PO SCH ×2 (09:15→20:37)
[2019-05-18] MEDS: PANTOprazole 40 MG TAB PO SCH ×2 (09:15→20:36)
[2019-05-18] MEDS: METOPROLOL SUCC 50MG EXT REL TAB PO SCH ×2 (09:16→16:03)
[2019-05-18] MEDS: RIFAXIMIN 550 MG TABLET PO SCH ×2 (09:16→20:37)
[2019-05-18] MEDS: TORSEMIDE 10 MG TAB PO SCH (09:16)
[2019-05-18] MEDS: NYSTATIN POWDER 15GM BTL EXT SCH ×2 (09:17→20:31)
[2019-05-18] MEDS: AMLODIPINE BESYLATE 5 MG TAB PO SCH ×3 (09:17→20:36)
[2019-05-18] MEDS: INSULIN ASPART 100 UNITS/ML 3 ML PEN SC SCH ×4 (09:17→20:39)
[2019-05-18] MEDS: ACETAMINOPHEN 325 MG TAB PO PRN (16:02)
[2019-05-18] MEDS ORDERED: dexAMETHasone 40 MG in SYRINGE 0 ML PO SCH (17:30)
[2019-05-18] MEDS: dexAMETHasone 4 MG TAB PO SCH (18:27)
[2019-05-18] MEDS ORDERED: INSULIN GLARGINE SOLOSTAR 100 UNITS/ML 3 ML PEN SC ONE (20:00)
[2019-05-19] MEDS: INSULIN ASPART 100 UNITS/ML 3 ML PEN SC SCH ×4 (00:11→12:33)
[2019-05-19] MEDS: SODIUM CHLORIDE 0.65% NA SOLN 45 ML (OCEAN) SCH ×4 (04:48→23:32)
[2019-05-19] MEDS ORDERED: INSULIN HUMAN NPH SC STA (07:57)
--- NOTE | 2019-05-19 08:33 | Pharmacy Report ---
Pharmacy Glycemic Short Note 2 - Date of Service May 19, 2019 - Glycemic Short BSG Results (Last 24 hours): 05/18/19 05/18/19 05/18/19 11:41 16:22 20:31 POC Glucose 133 H 232 H 202 H 05/18/19 05/19/19 05/19/19 23:57 04:09 07:43 POC Glucose 286 H 293 H 303 H* 05/19/19 07:45 POC Glucose 299 H OUTPATIENT ANTIDIABETIC REGIMEN: * Novolog 3 units TID with meals * Lantus 24-36 units based on blood sugar * A1c = 5.8 % 03/25/19 - may be unreliable d/t severe anemia ASSESSMENT: PO DXM 40mg Q24 x4 doses started on second shift yesterday. Hyperglycemia today likely steroid induced. Diet continues. PLAN FOR INPATIENT GLYCEMIC CONTROL: * Basal insulin * Lantus scale at HS, see MAR for further details * Will also add once daily NPH to help control steroid-induced hyperglycemia * Bolus insulin * NovoLog per scale ACHS or Q6hrs while NPO - tightened * Goal Range: Low 120 mg/dL - High 150 mg/dL - slightly higher goal range to prevent hypoglycemia for goals and comorbidities * Correction Factor: 10 mg/dL/unit * Nutritional / Prandial insulin per carb ratio of 1 unit per 3 grams CHO consumed
[2019-05-19] MEDS ORDERED: NovoLIN-N (NPH) PER UNIT CHARGE SQ ONE (09:00)
[2019-05-19] MEDS: NYSTATIN POWDER 15GM BTL EXT SCH ×2 (09:02→20:45)
[2019-05-19] MEDS: MAGNESIUM CHLORIDE 64MG DELAYED REL TAB PO SCH ×2 (09:04→20:51)
[2019-05-19] MEDS: RIFAXIMIN 550 MG TABLET PO SCH ×2 (09:04→20:45)
[2019-05-19] MEDS: AMLODIPINE BESYLATE 5 MG TAB PO SCH ×2 (09:04→20:46)
[2019-05-19] MEDS: METOPROLOL SUCC 50MG EXT REL TAB PO SCH ×2 (09:04→16:30)
[2019-05-19] MEDS: PANTOprazole 40 MG TAB PO SCH ×2 (09:04→20:46)
[2019-05-19] MEDS: TORSEMIDE 10 MG TAB PO SCH (09:04)
--- NOTE | 2019-05-19 11:01 | Palliative Care Progress Note ---
Date of Service May 19, 2019 Assessment & Plan (1) Goals of care, counseling/discussion: -Patient is feeling well today. She is hoping to go home tomorrow. 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 Plan is for high-dose steroids and continued transfusions when needed. -Plan is now to go home with home health. No hospice. Patient stated, "I'm just not ready to throw in the towel yet, but I know I'm heading towards hospice in the future." -Gave patient list of hospice agencies for future reference. I encouraged her to reach out to a account liaison hospice for information at some point. -I also informed the patient that hospice WILL in fact occasionally do some blood work when needed and within reason, as well as occasional blood product transfusions. It's on case by case basis. However, if she is requiring several transfusions a week and plans to continue to do them, hospice is probably not the appropriate choice at this time. -Plan is to be discharged hopefully tomorrow, and patient will follow up with her oncologist in [place] on 05/26/2019. (2) Anterior epistaxis: (3) Thrombocytopenia: (4) Chronic respiratory failure: Subjective Patient looks good today, sitting up in wheelchair. Is at her baseline. Patient denies any new complaints, is hoping to go home tomorrow. Review of Systems Review of Systems: + weakness no SOB at rest + edema; no chest pain no abdominal pain and no nausea no pain no confusion Physical Exam Constitutional: + ill appearing and + obese Respiratory: + labored breathing; not tachypneic Auscultation: + diminished lung sounds Cardiovascular: Rate/Rhythm: + irregularly irregular Extremities: + edema (+2 BLE) Neurologic: moves all extremities and awake; not confused Psychiatric: Orientation: oriented x 3 Insight: good insight Results & Data Vital Signs (Past 12 Hours) Vital Signs Temp Pulse Pulse Resp BP Pulse Ox 05/19/19 07:54 102 H 20 110/65 97 05/19/19 07:01 68 20 95 05/19/19 05:20 114 H 20 97 05/19/19 04:11 36.5 C 62 18 105/62 96 05/19/19 01:10 67 22 95 05/18/19 23:31 36.6 C 100 H 16 104/63 96 Coding Level of Care Code 60544 Subseq Hosp Care Lvl 3 Diagnoses Goals of care, counseling/discussion Z71.89 Anterior epistaxis R04.0 Thrombocytopenia D69.6 Chronic respiratory failure J96.10 Time Spent (min) 35 Time Spent Midlevel 35 minutes with >50% of the time spent at bedside with patient discussing plan of care and options for home care.
[2019-05-19 12:17] LABS: Hematocrit (blood only) 27.8 % (37-47); Hemoglobin 8.8 g/dL (12.0-16.0); Mean Corpuscular Hemoglobin 26.7 pg (25-34); Mean Corpuscular Hgb Conc 31.7 g/dL (32-36); Mean Corpuscular Volume 84.5 fL (80-100); Nucleated RBC # (auto) 0.11 K/uL (0-0); Nucleated RBC % (auto) 1.4 %; Platelet Count 20 K/uL (130-400); RDW Coefficient of Variation 17.9 % (11.5-14.5); RDW Standard Deviation 55.2 fL (36.4-46.3); Red Blood Count 3.29 M/uL (4.2-5.4)
[2019-05-19 12:18] LABS: Basophils # (auto) 0.01 K/uL (0-0.2); Basophils % (auto) 0.1 %; Eosinophils # (auto) 0.05 K/uL (0-0.5); Eosinophils % (auto) 0.7 %; Immature Granulocytes # (auto) 0.59 K/uL (0.00-0.02); Lymphocytes # (auto) 0.45 K/uL (1.2-3.4); Lymphocytes % (auto) 6.1 %; Monocytes % (auto) 2.7 %; Neutrophils % (auto) 82.4 %; Platelet Estimate SIGNIFIC DECREASED (Normal); Polychromasia 1+; Spherocytes 1+; Tear Drop Cells 1+
[2019-05-19] MEDS ORDERED: INSULIN ASPART 100 UNITS/ML VIAL SC ONE (12:30)
[2019-05-19 12:45] LABS: BUN Creatinine Ratio 45.9 (10-20); Calcium 9.3 mg/dl (8.5-10.1); Est GFR (African American) 44.7; Est GFR (Non-African American) 38.6; Potassium 3.7 mmol/L (3.5-5.1)
[2019-05-19 13:06] LABS: Beta-Hydroxybutyrate 0.63 mg/dl (0.2-2.81)
[2019-05-19] MEDS: OXYCODONE HCL IR 5 MG TAB (IMMEDIATE RELEASE) PO PRN ×3 (13:15→21:28)
[2019-05-19] MEDS ORDERED: INSULIN HUMAN REGULAR IV BOLUS 6 UNITS in SYRINGE 0 ML IV ONE (14:00)
[2019-05-19] MEDS ORDERED: POTASSIUM CHLORIDE 20 MEQ TABCR PO ONE (14:00)
[2019-05-19] MEDS ORDERED: FUROSEMIDE 20 MG in SYRINGE 0 ML IV ONE (16:06)
[2019-05-19] MEDS ORDERED: CYCLOBENZAPRINE HCL 10 MG TAB PO STA (16:06)
[2019-05-19] MEDS: LIDOCAINE 5% 1 PATCH TD SCH (17:16)
[2019-05-19] MEDS: dexAMETHasone 4 MG TAB PO SCH (17:17)
[2019-05-19] MEDS: INSULIN ASPART 100 UNITS/ML VIAL SC SCH ×2 (17:18→20:50)
[2019-05-19] MEDS ORDERED: MoRPHine SULFATE 4 MG/ML 1 ML CARP\\VIAL IV STA (18:17)
[2019-05-19] MEDS ORDERED: HYDROmorphone INJ 0.5 MG/0.5 ML SYR IV STA (19:18)
[2019-05-19] MEDS: INSULIN GLARGINE SOLOSTAR 100 UNITS/ML 3 ML PEN SC SCH (20:50)
[2019-05-19] MEDS ORDERED: HYDROmorphone INJ 1 MG/ML SYRINGE IV STA (22:29)
--- NOTE | 2019-05-19 22:57 | XRay Report ---
LEFT SHOULDER 3 VIEWS CLINICAL HISTORY: Left shoulder pain. FINDINGS: 3 views of the left shoulder are obtained. Correlation is made with PET/CT dated 05/21/2018 e nd chest x-ray dated 05/12/2019. The skeletal structures are osteopenic. There is no radiographic evid ence of acute left shoulder fracture or dislocation. Findings of diffuse osteoblastic metastatic dise ase are noted. Chronic deformity of the distal clavicle is similar to previous and there is productiv e degenerative change at the acromioclavicular joint. Superior subluxation of the humeral head sugges ts chronic rotator cuff injury. There are healed left-sided rib fractures. The overlying soft tissues are within normal limits. The imaged left lung parenchyma appears clear noting foci of scarring/atel ectasis. IMPRESSION: 1. No acute fracture or dislocation is seen. 2. Chronic degenerative changes and evidence of multifocal osteoblastic metastatic disease as above. Electronically signed by: Tommy Walter M.D. 05/19/2019 10:56 PM
[2019-05-20] MEDS: ACETAMINOPHEN 325 MG TAB PO PRN ×2 (00:05→14:51)
[2019-05-20] MEDS ORDERED: HYDROmorphone INJ 1 MG/ML SYRINGE IV STA (01:24)
--- NOTE | 2019-05-20 01:31 | Communication Note ---
Date of Service: May 20, 2019 Patient complaining of achy left shoulder pain radiating to the neck and right shoulder since popping at this afternoon. Incomplete unrelieved by 0.5 Dilaudid 1 dose ordered by AM provider. Left shoulder x-ray: 1. No acute fracture or dislocation is seen. 2. Chronic degenerative changes and evidence of multifocal osteoblastic metastatic disease as above. AP Left shoulder pain from metastatic bone disease Modify current opioid analgesic regimen to as follows for now : Oxycodone 5 to 10 mg every 4 hours as needed pain Dilaudid 1 mg IV every 2 hours as needed pain not relieved by p.o. meds Request AM providers to update patient of shoulder x-ray findings and to reconsider hospice in light of increasing pain medication requirements.
[2019-05-20] MEDS: HYDROmorphone INJ 1 MG/ML SYRINGE IV PRN (03:19)
[2019-05-20] MEDS: OXYCODONE HCL IR 5 MG TAB (IMMEDIATE RELEASE) PO PRN ×5 (04:33→22:33)
[2019-05-20] MEDS: SODIUM CHLORIDE 0.65% NA SOLN 45 ML (OCEAN) SCH ×4 (04:36→22:42)
--- NOTE | 2019-05-20 06:03 | Hospitalist Progress Note ---
Date of Service delayed entry date of service 05/18/19 May 20, 2019 Assessment & Plan (1) Epistaxis: (1) Epistaxis: (2) Thrombocytopenia: -- s/p placement of rhinorocket, right nostril no recurrence since --Requested ENT Dr. Wong to remove rhinorocket No bleeding after removal of Rhino Rocket, will continue to monitor Recommendation of ENT Dr. Gibbs: humidified air/oxygen only -nasal saline spray [id number] starting tomorrow am afrin prn for bleeding along with holding pressure for 20 minutes packing is dissolvable, no abx ppx required Home recs: -humidified oxygen -nasal saline spray 6-8 times per day -vaseline application twice a day -- maintain Plt > 10k 05/18/2019 --No recurrence of epistaxis Plt 15k monitor Continue nasal spray every 6 hours -- patient reversed decision re: home with hospice service, woud like to seek second opinion from Dr. Mattson [facility] contacted [facility] for possible transfer re: worsening of thrombocytopenia, Breast Ca with mets discussed with Dr. Mattson- Oncologist does not advise transfer of patient, recommend Decadron 40mg po daily x 4 days for possible ITP Acute on chronic anemia Anemia -- Hg 6.5 Given 1 unit of packed RBCs Hg remains 8 Urticaria --Please secondary to blood transfusion No signs of anaphylaxis --Given Benadryl 25 mg IV and Solu-Medrol 40 mg IV --Resolved -- patient requires Tylenol 1 g and Benadryl PO prior to blood transfusion Metastatic breast cancer - per Dr. Edmond's notes -Follows with Dr. Christophe Light. was on 4 weekly Faslodex and Xgeva, but her last dose was in February 2020 and currently held for her low blood counts. -As per heme/oncology notes poor prognosis and not a candidate for cytotoxic chemotherapy. -Patient and family would like to seek opinion of timber sizer operator oncologist in [place] May 26 management per # 1 Hypercalcemia in the past Hypomagnesemia -Ca and Mg within normal limits Acute on Chronic respiratory failure: TYE Obesity Hypoventilation syndrome - ABG showing respiratory acidosis, resolved remains on Bipap -Pulmonary service consulted -resolved, Stable overall, Bipap when sleeping acute on Chronic right-sided congestive heart failure - given IV Lasix - now on Torsemide PO daily history of paroxysmal atrial fibrillation -Continue metoprolol succinate 50 mg twice daily -blood thinners are contraindicated Hypertension: -Continue amlodipine, metoprolol CKD (chronic kidney disease), stage III: Creatinine 1.2 today, slightly elevated -monitor renal function Type 2 diabetes mellitus with longterm current use of insulin -A1c: 5.8 on 03/25/19 -insulin as needed Glycemic control consult placed History of hepatic encephalopathy in the past -currently on Xifaxan -mental status at baseline Disposition Palliative care consulted Conditional code Anticipate discharge to home with home services when medically stable Subjective ff up for epistaxis, thrombocytopenia, etc. seen resting in chair, comfortable awake, alert, oriented x 3 appetite is good no epistaxis or other signs of bleeding no shortness of breath no other symptoms Review of Systems Review of Systems: All systems reviewed & are unremarkable except as noted in HPI & below Physical Exam Physical Exam: General- oriented x 3, not in distress, speaks in sentences with no effort or accessory muscle use Eyes- anicteric Nose- no epistaxis Neck- no JVD Lungs- clear breath sounds bilaterally,no wheezing Heart- normal rate, regular rhythm; no murmurs Abdomen- normal bowel sounds, nondistended, soft, nontender Extremities- mild lower leg edema, no calf tenderness Neuro- alert, oriented x 3; no gross focal neurologic deficits Skin- warm & dry Results & Data ([facility]) Vital Signs (Past 12 Hours) Vital Signs Temp Pulse Pulse Pulse Resp BP BP 05/20/19 03:00 36.5 C 111 H 20 151/32 H 05/19/19 23:41 108 H 05/19/19 23:00 36.4 C L 111 H 20 152/94 H 05/19/19 18:49 36.5 C 102 H 18 169/94 H Pulse Ox 05/20/19 03:00 98 05/19/19 23:41 05/19/19 23:00 99 05/19/19 18:49 99
--- NOTE | 2019-05-20 06:19 | Hospitalist Progress Note ---
Date of Service delayed entry date of service 05/19/2019 May 20, 2019 Assessment & Plan (1) Epistaxis: (1) Epistaxis: (2) Thrombocytopenia: -- s/p placement of rhinorocket, right nostril no recurrence since --Requested ENT Dr. Wong to remove rhinorocket No bleeding after removal of Rhino Rocket, will continue to monitor Recommendation of ENT Dr. Gibbs: humidified air/oxygen only -nasal saline spray [id number] starting tomorrow am afrin prn for bleeding along with holding pressure for 20 minutes packing is dissolvable, no abx ppx required Home recs: -humidified oxygen -nasal saline spray 6-8 times per day -vaseline application twice a day -- maintain Plt > 10k -- patient reversed decision re: home with hospice service, woud like to seek second opinion from Dr. Mattson [facility] contacted [facility] for possible transfer re: worsening of thrombocytopenia, Breast Ca with mets discussed with Dr. Mattson- Oncologist does not advise transfer of patient, recommend Decadron 40mg po daily x 4 days for possible ITP 05/19/2019 --No recurrence of epistaxis since admission has received total of 5 units of platelets started on Decadron 40mg po- day 2 Plt 15k--> 18k monitor Plt level hyperglycemic, Pharmacy Glycemic control on board, monitor BSGs Continue nasal spray every 6 hours Acute on chronic anemia Anemia -- Hg 6.5 Given 1 unit of packed RBCs Hg remains 8 Urticaria --secondary to blood transfusion No signs of anaphylaxis --Given Benadryl 25 mg IV and Solu-Medrol 40 mg IV --Resolved -- patient requires Tylenol 1 g and Benadryl PO prior to blood transfusion Metastatic breast cancer - per Dr. Edmond's notes -Follows with Dr. Christophe Light. was on 4 weekly Faslodex and Xgeva, but her last dose was in February 2020 and currently held for her low blood counts. -As per heme/oncology notes poor prognosis and not a candidate for cytotoxic chemotherapy. -Patient and family would like to seek opinion of program management intern oncologist in [place] May 26 management per # 1 Hypercalcemia Hypomagnesemia -Ca and Mg within normal limits Acute on Chronic respiratory failure: TYE Obesity Hypoventilation syndrome - ABG showing respiratory acidosis, resolved remains on Bipap -Pulmonary service consulted -resolved, Stable overall, Bipap when sleeping acute on Chronic right-sided congestive heart failure - given IV Lasix - now on Torsemide PO daily history of paroxysmal atrial fibrillation -Continue metoprolol succinate 50 mg twice daily -blood thinners are contraindicated Hypertension: -Continue amlodipine, metoprolol CKD (chronic kidney disease), stage III: -monitor renal function 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 -A1c: 5.8 on 03/25/19 - (+) hyperglycemia from Decadron Glycemic control consult placed History of hepatic encephalopathy -currently on Xifaxan -mental status at baseline Disposition Palliative care consulted Home with hospice decision reversed, now on Conditional code Anticipate discharge to home with home services when medically stable ff up with [facility] for 2nd opinion May 26 per patient's preference Subjective ff up for epistaxis, thrombocytopenia seen resting in bedside chair not in distress states she feels fine overall except for posterior neck pain, worse with movement denies epistaxis, bleeding no chest pain, dyspnea no other symptoms Review of Systems Review of Systems: All systems reviewed & are unremarkable except as noted in HPI & below Physical Exam Physical Exam: General- oriented x 3, not in distress, speaks in sentences with no effort or accessory muscle use Eyes- anicteric Neck- no JVD, no erythema/warmth/swelling poor ROM due to pain Lungs- clear breath sounds bilaterally Heart- normal rate, regular rhythm; no murmurs Abdomen- normal bowel sounds, nondistended, soft, nontender Extremities- grade 1 lower leg edema, no calf tenderness Neuro- alert, oriented x 3; no gross focal neurologic deficits Skin- warm & dry Results & Data ([facility]) Vital Signs (Past 12 Hours) Vital Signs Temp Pulse Pulse Pulse Resp BP BP 05/20/19 03:00 36.5 C 111 H 20 151/32 H 05/19/19 23:41 108 H 05/19/19 23:00 36.4 C L 111 H 20 152/94 H 05/19/19 18:49 36.5 C 102 H 18 169/94 H Pulse Ox 05/20/19 03:00 98 05/19/19 23:41 05/19/19 23:00 99 05/19/19 18:49 99 Laboratory Results all noted and reviewed
[2019-05-20 08:14] LABS: Hematocrit (blood only) 29.8 % (37-47); Hemoglobin 9.1 g/dL (12.0-16.0); Mean Corpuscular Hemoglobin 26.5 pg (25-34); Mean Corpuscular Hgb Conc 30.5 g/dL (32-36); Mean Corpuscular Volume 86.6 fL (80-100); Nucleated RBC # (auto) 0.14 K/uL (0-0); Nucleated RBC % (auto) 1.4 %; Platelet Count 15 K/uL (130-400); RDW Coefficient of Variation 17.9 % (11.5-14.5); RDW Standard Deviation 56.5 fL (36.4-46.3); Red Blood Count 3.44 M/uL (4.2-5.4); White Blood Count 10.37 K/uL (4.8-10.8)
[2019-05-20] MEDS: LIDOCAINE 5% 1 PATCH TD SCH (08:15)
[2019-05-20] MEDS: INSULIN ASPART 100 UNITS/ML VIAL SC SCH ×4 (08:16→20:40)
[2019-05-20] MEDS: AMLODIPINE BESYLATE 5 MG TAB PO SCH ×2 (08:17→20:37)
[2019-05-20] MEDS: PANTOprazole 40 MG TAB PO SCH ×2 (08:17→20:43)
[2019-05-20] MEDS: RIFAXIMIN 550 MG TABLET PO SCH ×2 (08:17→20:45)
[2019-05-20] MEDS: TORSEMIDE 10 MG TAB PO SCH (08:17)
[2019-05-20] MEDS: MAGNESIUM CHLORIDE 64MG DELAYED REL TAB PO SCH ×2 (08:17→20:43)
[2019-05-20] MEDS: METOPROLOL SUCC 50MG EXT REL TAB PO SCH ×2 (08:17→16:41)
[2019-05-20] MEDS: NYSTATIN POWDER 15GM BTL EXT SCH ×2 (08:18→20:37)
[2019-05-20 08:39] LABS: BUN Creatinine Ratio 48.8 (10-20); Calcium 9.3 mg/dl (8.5-10.1); Creatinine Clr Calc Pharmacy 46.7 ml/min; Est GFR (African American) 42.2; Est GFR (Non-African American) 36.4
[2019-05-20 08:52] LABS: Basophils # (auto) 0.02 K/uL (0-0.2); Basophils % (auto) 0.2 %; Eosinophils # (auto) 0.06 K/uL (0-0.5); Eosinophils % (auto) 0.6 %; Immature Granulocytes # (auto) 0.82 K/uL (0.00-0.02); Immature Granulocytes % (auto) 7.9 %; Lymphocytes # (auto) 0.48 K/uL (1.2-3.4); Lymphocytes % (auto) 4.6 %; Monocytes # (auto) 0.47 K/uL (0.11-0.59); Monocytes % (auto) 4.5 %; Neutrophils # (auto) 8.52 K/uL (1.4-6.5); Neutrophils % (auto) 82.2 %; Spherocytes Occasional
[2019-05-20] MEDS ORDERED: NovoLIN-N (NPH) PER UNIT CHARGE SQ STA (09:08)
[2019-05-20 09:36] LABS: Potassium 4.5 mmol/L (3.5-5.1)
--- NOTE | 2019-05-20 10:28 | Pharmacy Report ---
Pharmacy Glycemic Short Note 2 - Date of Service May 20, 2019 - Glycemic Short BSG Results (Last 24 hours): 05/19/19 05/19/19 05/19/19 11:32 11:35 11:37 Glucose 345 H* POC Glucose 373 H* 390 H* 05/19/19 05/19/19 05/19/19 14:10 16:29 20:00 Glucose POC Glucose 273 H 153 H 133 H 05/20/19 05/20/19 07:24 07:31 Glucose 250 H POC Glucose 223 H OUTPATIENT ANTIDIABETIC REGIMEN: * Novolog 3 units SC TIDM * Lantus 24-36 units SC based on blood sugar * A1c = 5.8 % 03/25/19 - may be unreliable d/t severe anemia ASSESSMENT: * Dexamethasone 40mg po daily@18 , day 3 of 4 * Hyperglycemia likely steroid induced * Utilizing a combo of Lantus HS and NPH qAM for basal insulin - NPH to better manage steroid-induced hyperglycemia with home HS administration of Lantus maintained to help with transition back to outpatient regimen and also prevent AM fasting hyperglycemia * Will increase Lantus 2nd AM fasting hyperglycemia noted * Will increase NPH 2nd post-prandial elevations at lunch and dinner yesterday noted * Will add one overnight check for Novolog. Will tighten CHO ratio 2nd persistent post-prandial elevations noted too PLAN FOR INPATIENT GLYCEMIC CONTROL: * Regular insulin 5 units IVP x1 with lunch today * Basal insulin - increase * Lantus scale 30-35 units SC HS, see MAR for further details * NPH 55 units SC AM x1 * Bolus insulin * NovoLog per scale ACHS with one overnight check * Goal Range: Low 120 mg/dL - High 150 mg/dL * Correction Factor: 10 mg/dL/unit * Nutritional / Prandial insulin per carb ratio of 1 unit per 2.5 grams CHO consumed
[2019-05-20] MEDS ORDERED: LIDOCAINE/EPINEPHRINE 1% 20 ML VIAL INFIL STA (13:34)
[2019-05-20] MEDS ORDERED: LIDOCAINE HCL 1% 20 ML VIAL ONE (13:43)
[2019-05-20] MEDS ORDERED: INSULIN HUMAN REGULAR IV BOLUS 5 UNITS in SYRINGE 0 ML IV STA (13:49)
[2019-05-20] MEDS: dexAMETHasone 4 MG TAB PO SCH (16:41)
--- NOTE | 2019-05-20 17:38 | Emergency Department Note ---
Entered by Aubrie Fuentes acting as a scribe for Gaudencio Escoto MD ED Visit Note Brief Note: I was called by the inpatient hospitalist service by Dr. Frandy Edmond due to concern that the patient did have acute onset of epistaxis and currently there is no ENT on-call for evaluation. I did present to see the patient and the patient was having some bleeding within the posterior pharynx likely due to a nosebleed. The patient did have a prior history of nosebleed after having a nasal pack removed several days earlier. Patient also does have a history of thrombocytopenia which is also probably exacerbating her epistaxis. The patient did have some Afrin administered. I did subsequently place a nasal pack as described below. The patient did have improvement of her symptoms. I did discuss this with Dr. Edmond and stated to check up on on her with regard to her bleeding in the next half hour to monitor for any continued bleeding. Patient did appear to have improved bleeding and no further blood coming from the posterior pharynx. Patient also stated she could not feel further blood running down her posterior pharynx either. Procedure Note: Anterior Nasal Packing Performed by: Dr. Escoto Indication: Epistaxis Verbal consent obtained. Risks and benefits were explained with the usual customary discussion. A time out was taken. The right naris was prepped with Afrin and lidocaine. A nasal clamp was placed. Time was taken for the Afrin. Subsequently this was removed, and the clots were removed with suction after vigorous blowing of her nose. Patient had bleeding to R naris. A 5.5-cm nasal balloon was placed in a standard fashion. The patient tolerated this well. Hemostasis was achieved. No complications. . : Anemia Qualifiers: Anemia type: iron deficiency The scribe's documentation has been prepared under my direction and personally reviewed by me in its entirety. I confirm that the note above accurately reflects all work, treatment, procedures, and medical decision making performed by me.
[2019-05-20 18:10] LABS: Hematocrit (blood only) 27.7 % (37-47); Hemoglobin 8.6 g/dL (12.0-16.0); Mean Corpuscular Hemoglobin 26.3 pg (25-34); Mean Corpuscular Volume 84.7 fL (80-100); Nucleated RBC # (auto) 0.21 K/uL (0-0); Nucleated RBC % (auto) 1.5 %; Platelet Count 25 K/uL (130-400); RDW Coefficient of Variation 17.9 % (11.5-14.5); RDW Standard Deviation 54.8 fL (36.4-46.3); Red Blood Count 3.27 M/uL (4.2-5.4); White Blood Count 13.59 K/uL (4.8-10.8)
[2019-05-20 18:11] LABS: Basophils # (auto) 0.05 K/uL (0-0.2); Basophils % (auto) 0.4 %; Eosinophils # (auto) 0.04 K/uL (0-0.5); Eosinophils % (auto) 0.3 %; Immature Granulocytes # (auto) 0.89 K/uL (0.00-0.02); Immature Granulocytes % (auto) 6.5 %; Lymphocytes % (auto) 3.7 %; Monocytes % (auto) 5.2 %; Neutrophils # (auto) 11.41 K/uL (1.4-6.5); Neutrophils % (auto) 83.9 %; Platelet Estimate SIGNIFIC DECREASED (Normal); Spherocytes Occasional; Tear Drop Cells Occasional
--- NOTE | 2019-05-20 20:01 | Hospitalist Progress Note ---
Date of Service May 20, 2019 Assessment & Plan (1) Epistaxis: Epistaxis: Thrombocytopenia: -to date patient had 1 unit or PRBC and 6 units of platelets; she had initial right nare nasal packing for 5 days from emergency room presentation and then on 05/20/2019 Patient had acute nose bleed episode and hospitalist obtained Emergency room physician to pack the right nare to stop the bleeding. Patient then got 1 unit of platelets. ENT Dr. Kadie Wong is updated -currently on decadron 40 mg oral daily Metastatic breast cancer -patient follows with Dr. Christophe Light. was on 4 weekly Faslodex and Xgeva, but her last dose was in February 2020 and currently held for her low blood counts. -As per heme/oncology notes poor prognosis and not a candidate for cytotoxic chemotherapy. -patient reversed decision re: home with hospice service, woud like to seek second opinion from Dr. Mattson [facility]. previous hospitalist had contacted [facility] for possible transfer re: worsening of thrombocytopenia, Breast Ca with metastasis however Oncologist Dr. Mattson- Oncologist does not advise transfer of patient, and recommend Decadron 40mg po daily for 4 days total for possible ITP; patient has clinic appointment with [facility] for 2nd opinion May 26 per patient's preference Acute on chronic anemia Anemia -- Hg 6.5 Given 1 unit of packed RBCs on this admission and Hgb remains 8 or above Urticaria - patient requires Tylenol and Benadryl PO prior to blood transfusions Hypercalcemia Hypomagnesemia -Calcium and Magneseium levels okay for now Acute on Chronic respiratory failure: TYE Obesity Hypoventilation syndrome -Bipap when sleeping acute on Chronic right-sided congestive heart failure -on Torsemide PO daily history of paroxysmal atrial fibrillation -Continue metoprolol succinate 50 mg twice daily -blood thinners are contraindicated Hypertension: -Continue amlodipine, metoprolol CKD (chronic kidney disease), stage III: -monitor renal function Type 2 diabetes mellitus with [facility] current use of insulin -A1c: 5.8 on 03/25/19 - (+) hyperglycemia from Decadron Glycemic control consult following the patient History of hepatic encephalopathy -currently on Xifaxan -mental status at baseline Disposition Palliative care consulted Home with hospice decision reversed, now on Conditional code Subjective Patient had acute nose bleed episode and hospitalist obtained Emergency room physician to pack the right nare to stop the bleeding. Patient then got 1 unit of platelets. Patient currently doing better. no nose bleeding now. no dizziness. no lightheadedness. no headache. no facial pain. breathings is comfortable. no chest pain. no abdomen pain. no nausea. no vomiting Review of Systems Review of Systems: All systems reviewed & are unremarkable except as noted in HPI & below Physical Exam Constitutional: comfortable Eyes: PERRL, conjunctivae normal, anicteric sclerae EOM intact bilaterally ENMT: Nose: + nare abnormality (nasal packing) Neck: normal visual inspection Respiratory: normal respiratory effort (on oxymask) and able to speak in complete sentences Cardiovascular: Rate/Rhythm: regular rate and regular rhythm Gastrointestinal (Abdomen): normal bowel sounds, soft, nontender, no hepatosplenomegaly Musculoskeletal: Head/Neck/Chest: normocephalic and head atraumatic Neurologic: PERRL, EOMI, accommodation nl, no face palsy, no dysarthria Psychiatric: A+Ox3, euthymic affect Results & Data ([facility]) Vital Signs (Past 12 Hours) Vital Signs Temp Pulse Pulse Pulse Resp BP BP 05/20/19 19:00 36.4 C L 102 H 18 128/89 05/20/19 15:25 36.4 C L 112 H 18 179/75 H 05/20/19 15:10 36.3 C L 92 H 18 130/84 05/20/19 14:53 36.6 C 118 H 18 120/69 05/20/19 11:16 36.5 C 107 H 20 126/72 Pulse Ox 05/20/19 19:00 99 05/20/19 15:25 05/20/19 15:10 98 05/20/19 14:53 05/20/19 11:16 96
[2019-05-20] MEDS: INSULIN GLARGINE SOLOSTAR 100 UNITS/ML 3 ML PEN SC SCH (20:35)
[2019-05-21] MEDS: ACETAMINOPHEN 325 MG TAB PO PRN ×2 (00:37→19:12)
[2019-05-21] MEDS: HYDROmorphone INJ 1 MG/ML SYRINGE IV PRN ×6 (01:08→23:50)
[2019-05-21] MEDS ORDERED: INSULIN ASPART 100 UNITS/ML VIAL SC ONE (02:00)
[2019-05-21] MEDS: OXYCODONE HCL IR 5 MG TAB (IMMEDIATE RELEASE) PO PRN ×4 (04:28→20:05)
[2019-05-21] MEDS: SODIUM CHLORIDE 0.65% NA SOLN 45 ML (OCEAN) SCH ×4 (04:29→22:37)
[2019-05-21] MEDS: LIDOCAINE 5% 1 PATCH TD SCH (07:53)
[2019-05-21] MEDS: PANTOprazole 40 MG TAB PO SCH ×2 (07:53→20:48)
[2019-05-21] MEDS: MAGNESIUM CHLORIDE 64MG DELAYED REL TAB PO SCH ×2 (07:53→20:49)
[2019-05-21] MEDS: RIFAXIMIN 550 MG TABLET PO SCH ×2 (07:53→20:49)
[2019-05-21] MEDS: AMLODIPINE BESYLATE 5 MG TAB PO SCH ×2 (07:53→20:47)
[2019-05-21] MEDS: TORSEMIDE 10 MG TAB PO SCH (07:53)
[2019-05-21] MEDS: METOPROLOL SUCC 50MG EXT REL TAB PO SCH ×2 (07:53→16:08)
[2019-05-21] MEDS: NYSTATIN POWDER 15GM BTL EXT SCH ×2 (07:54→20:47)
[2019-05-21] MEDS ORDERED: NovoLIN-N (NPH) PER UNIT CHARGE SQ STA (08:06)
[2019-05-21 08:53] LABS: Anisocytosis Present; Basophils # (auto) 0.04 K/uL (0-0.2); Basophils % (auto) 0.3 %; Eosinophils # (auto) 0.03 K/uL (0-0.5); Eosinophils % (auto) 0.2 %; Giant Platelets 1+; Hematocrit (blood only) 30.1 % (37-47); Hemoglobin 9.2 g/dL (12.0-16.0); Immature Granulocytes # (auto) 1.08 K/uL (0.00-0.02); Immature Granulocytes % (auto) 7.9 %; Lymphocytes # (auto) 0.49 K/uL (1.2-3.4); Lymphocytes % (auto) 3.6 %; Mean Corpuscular Hemoglobin 26.7 pg (25-34); Mean Corpuscular Hgb Conc 30.6 g/dL (32-36); Mean Corpuscular Volume 87.2 fL (80-100); Monocytes # (auto) 0.78 K/uL (0.11-0.59); Monocytes % (auto) 5.7 %; Neutrophils # (auto) 11.17 K/uL (1.4-6.5); Neutrophils % (auto) 82.3 %; Nucleated RBC % (auto) 2.2 %; Platelet Count 27 K/uL (130-400); Platelet Estimate Decreased (Normal); Polychromasia 1+; RDW Coefficient of Variation 18.1 % (11.5-14.5); RDW Standard Deviation 56.7 fL (36.4-46.3); Red Blood Count 3.45 M/uL (4.2-5.4); White Blood Count 13.59 K/uL (4.8-10.8)
[2019-05-21] MEDS: INSULIN ASPART 100 UNITS/ML VIAL SC SCH ×4 (08:55→20:40)
[2019-05-21 09:00] LABS: BUN Creatinine Ratio 56.1 (10-20); Calcium 9.3 mg/dl (8.5-10.1); Est GFR (African American) 43.6; Est GFR (Non-African American) 37.6; Potassium 4.3 mmol/L (3.5-5.1)
--- NOTE | 2019-05-21 10:47 | Hospitalist Progress Note ---
Date of Service May 21, 2019 Assessment & Plan (1) Epistaxis: Epistaxis: Thrombocytopenia: -to date patient had 1 unit or PRBC and 6 units of platelets; she had initial right nare nasal packing for 5 days from emergency room presentation and then on 05/20/2019 Patient had acute nose bleed episode and hospitalist obtained Emergency room physician to pack the right nare to stop the bleeding. Patient then got 1 unit of platelets. ENT Dr. Kadie Wong is updated -05/21/2019: no apparent nose bleed overnight, patient complains of nasal discomfort from the packing. hospitalist medical doctor notifying ENT office of [place]. otherwise, patient does not appear to have any respiratory compromise. Platelets are at 25,000 -currently to finish 4 day course of the decadron 40 mg oral daily on 05/21/2019 Metastatic breast cancer -patient follows with Dr. Christophe Light. was on 4 weekly Faslodex and Xgeva, but her last dose was in February 2020 and currently held for her low blood counts. -As per heme/oncology notes poor prognosis and not a candidate for cytotoxic chemotherapy. -patient reversed decision re: home with hospice service, woud like to seek second opinion from Dr. Mattson [facility]. previous hospitalist had contacted [facility] for possible transfer re: worsening of thrombocytopenia, Breast Ca with metastasis however Oncologist Dr. Mattson- Oncologist does not advise transfer of patient, and recommend Decadron 40mg po daily for 4 days total for possible ITP; patient has clinic appointment with [facility] for 2nd opinion May 26 per patient's preference Acute on chronic anemia Anemia -- Hg 6.5 Given 1 unit of packed RBCs on this admission and Hgb remains 8 or above Urticaria - patient requires Tylenol and Benadryl PO prior to blood transfusions Hypercalcemia Hypomagnesemia -Calcium levels are okay for now -check serum magnesium levels because of previously treated hypomagnesemia Acute on Chronic respiratory failure: TYE Obesity Hypoventilation syndrome -Bipap when sleeping acute on Chronic right-sided congestive heart failure -on Torsemide PO daily history of paroxysmal atrial fibrillation -Continue metoprolol succinate 50 mg twice daily -blood thinners are contraindicated Hypertension: -Continue amlodipine, metoprolol CKD (chronic kidney disease), stage III: -monitor renal function 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 hospitalist medical doctor notifying ENT office of [place]. otherwise, patient does not appear to have any respiratory compromise no chest pain. no abdomen pain. no vomiting. no headache. no dizziness. Review of Systems Review of Systems: All systems reviewed & are unremarkable except as noted in HPI & below Physical Exam Constitutional: WD/WN, vitals as above Eyes: PERRL, conjunctivae normal, anicteric sclerae EOM intact bilaterally ENMT: Nose: + nare abnormality (nasal packing) Neck: normal visual inspection Respiratory: normal respiratory effort (on oxymask) and able to speak in complete sentences Cardiovascular: Rate/Rhythm: regular rate and regular rhythm Gastrointestinal (Abdomen): normal bowel sounds, soft, nontender, no hepatosplenomegaly Musculoskeletal: Head/Neck/Chest: normocephalic and head atraumatic Neurologic: PERRL, EOMI, accommodation nl, no face palsy, no dysarthria Psychiatric: A+Ox3, euthymic affect Genitourinary: courtney Results & Data ([facility]) Vital Signs (Past 12 Hours) Vital Signs Temp Pulse Pulse Pulse Resp BP Pulse Ox 05/21/19 08:08 36.4 C L 105 H 20 125/88 97 05/21/19 02:56 36.4 C L 107 H 18 143/85 H 94 05/20/19 23:34 105 H 05/20/19 22:56 36.3 C L 92 H 18 139/64 98
[2019-05-21] MEDS: cephALEXin 250 MG CAP PO SCH ×3 (13:56→20:47)
--- NOTE | 2019-05-21 16:42 | Ears,Nose,Throat Progress Note ---
Date of Service May 21, 2019 Assessment & Plan (1) Epistaxis: Inpatient: -humidified air/oxygen only -nasal saline spray [id number] starting tomorrow am -afrin prn for bleeding along with holding pressure for 20 minutes Home recs: -humidified oxygen -nasal saline spray 6-8 times per day -vaseline application twice a day - has f/u scheduled with me for next Saturday, unfortunately my only available appts that day are in [place], patient knows I will ask Dr. Coles for his availability, but understands that he may decline - explaine dot patient if bleeding again would recommend transfer to tertiary [facility] where embolisation is an option Subjective No new episodes of epistaxis. Nasal packing is causing expected discomfort. Patient looks good today, sitting up in wheelchair. Is at her baseline. Patient denies any new complaints, is hoping to go home tomorrow. Review of Systems Review of Systems: All systems reviewed & are unremarkable except as noted in HPI & below Physical Exam Physical Exam: Rhinorocket in place. No active bleeding noted Results & Data Vital Signs (Past 12 Hours) Vital Signs Temp Pulse Pulse Resp BP Pulse Ox 05/21/19 15:52 36.4 C L 103 H 20 120/74 99 05/21/19 12:00 36.4 C L 112 H 20 136/76 96 05/21/19 08:08 36.4 C L 105 H 20 125/88 97 Laboratory Results Platelets 25,000
[2019-05-21] MEDS: dexAMETHasone 4 MG TAB PO SCH (17:30)
[2019-05-21] MEDS: INSULIN GLARGINE SOLOSTAR 100 UNITS/ML 3 ML PEN SC SCH (20:45)
[2019-05-22] MEDS: OXYCODONE HCL IR 5 MG TAB (IMMEDIATE RELEASE) PO PRN ×2 (01:41→17:03)
[2019-05-22] MEDS: HYDROmorphone INJ 1 MG/ML SYRINGE IV PRN ×6 (03:12→22:07)
[2019-05-22] MEDS: SODIUM CHLORIDE 0.65% NA SOLN 45 ML (OCEAN) SCH ×4 (05:04→22:06)
[2019-05-22] MEDS: MAGNESIUM CHLORIDE 64MG DELAYED REL TAB PO SCH ×2 (07:17→21:14)
[2019-05-22] MEDS: NYSTATIN POWDER 15GM BTL EXT SCH ×2 (07:17→21:16)
[2019-05-22] MEDS: RIFAXIMIN 550 MG TABLET PO SCH ×2 (07:17→21:14)
[2019-05-22] MEDS: AMLODIPINE BESYLATE 5 MG TAB PO SCH ×2 (07:17→21:15)
[2019-05-22] MEDS: PANTOprazole 40 MG TAB PO SCH ×2 (07:18→21:30)
[2019-05-22] MEDS: cephALEXin 250 MG CAP PO SCH ×4 (07:18→21:30)
[2019-05-22] MEDS: LIDOCAINE 5% 1 PATCH TD SCH (07:18)
[2019-05-22] MEDS: TORSEMIDE 10 MG TAB PO SCH (07:18)
[2019-05-22] MEDS: METOPROLOL SUCC 50MG EXT REL TAB PO SCH ×2 (07:18→16:53)
[2019-05-22 07:19] LABS: Hematocrit (blood only) 29.5 % (37-47); Hemoglobin 8.9 g/dL (12.0-16.0); Mean Corpuscular Hemoglobin 26.4 pg (25-34); Mean Corpuscular Hgb Conc 30.2 g/dL (32-36); Mean Corpuscular Volume 87.5 fL (80-100); Nucleated RBC # (auto) 0.49 K/uL (0-0); Nucleated RBC % (auto) 3.9 %; Platelet Count 15 K/uL (130-400); RDW Standard Deviation 57.8 fL (36.4-46.3); Red Blood Count 3.37 M/uL (4.2-5.4); White Blood Count 12.58 K/uL (4.8-10.8)
[2019-05-22 07:32] LABS: Basophils # (auto) 0.04 K/uL (0-0.2); Basophils % (auto) 0.3 %; Eosinophils # (auto) 0.04 K/uL (0-0.5); Eosinophils % (auto) 0.3 %; Immature Granulocytes # (auto) 0.89 K/uL (0.00-0.02); Immature Granulocytes % (auto) 7.1 %; Lymphocytes % (auto) 7.2 %; Monocytes # (auto) 0.35 K/uL (0.11-0.59); Monocytes % (auto) 2.8 %; Neutrophils # (auto) 10.36 K/uL (1.4-6.5); Neutrophils % (auto) 82.3 %
[2019-05-22 07:36] LABS: BUN Creatinine Ratio 63.6 (10-20); Calcium 8.9 mg/dl (8.5-10.1); Creatinine Clr Calc Pharmacy 51.9 ml/min; Est GFR (Non-African American) 41.4; Potassium 4.7 mmol/L (3.5-5.1)
[2019-05-22] MEDS: INSULIN ASPART 100 UNITS/ML VIAL SC SCH ×4 (08:04→21:18)
--- NOTE | 2019-05-22 09:03 | Hospitalist Progress Note ---
Date of Service May 22, 2019 Assessment & Plan (1) Epistaxis: Epistaxis: Thrombocytopenia: -recurrent hospitalizations for epistaxis requiring blood transfusions -to date patient had 1 unit or PRBC and 6 units of platelets; she had initial right nare nasal packing for 5 days from emergency room presentation and then on 05/20/2019 Patient had acute nose bleed episode when platelets around 15,000 and hospitalist obtained Emergency room physician to pack the right nare to stop the bleeding. Patient then got 1 unit of platelets. ENT Dr. Kadie Wong is updated -05/21/2019: no apparent nose bleed overnight, patient complains of nasal discomfort from the packing. hospitalist medical doctor notifying ENT office of [place]. otherwise, patient does not appear to have any respiratory compromise. Platelets are at 25,000 -finished 4 day course of the decadron 40 mg oral daily on 05/21/2019 -05/21/[address] Wong counseled patient that if patient were to re-bleed from the nose again, then consider transfer to tertiary care center such as [facility] in [place] for embolization of the nasal vessels -05/22/2019 platelets have decreased again to 15,000. Patient was asked whether she would prefer further evaluation at [facility] as her chance of re-bleeding is high. Patient reports she would like to discuss with her before making any firm decisions about hospital transfer considerations. Metastatic breast cancer -patient follows with Dr. Christophe Light. was on 4 weekly Faslodex and Xgeva, but her last dose was in February 2020 and currently held for her low blood counts. -As per heme/oncology notes poor prognosis and not a candidate for cytotoxic chemotherapy. -patient reversed decision re: home with hospice service, woud like to seek second opinion from Dr. Mattson [facility]. previous hospitalist had contacted [facility] for possible transfer re: worsening of thrombocytopenia, Breast Ca with metastasis however Oncologist Dr. Mattson- Oncologist does not advise transfer of patient, and he had recommended Decadron 40mg po daily for 4 days total for possible ITP (steroid trial completed on 05/21/2019 and results was lack of improvement); patient has clinic appointment with [facility] for 2nd opinion May 26 per patient's preference Acute on chronic anemia Anemia -- Hg 6.5 Given 1 unit of packed RBCs on this admission and Hgb remains 8 or above Urticaria - patient requires Tylenol and Benadryl PO prior to blood transfusions Hypercalcemia Hypomagnesemia -Calcium levels are okay for now -check serum magnesium levels because of previously treated hypomagnesemia Acute on Chronic respiratory failure: TYE Obesity Hypoventilation syndrome -Bipap when sleeping acute on Chronic right-sided congestive heart failure -on Torsemide PO daily history of paroxysmal atrial fibrillation -Continue metoprolol succinate 50 mg twice daily -blood thinners are contraindicated Hypertension: -Continue amlodipine, metoprolol CKD (chronic kidney disease), stage III: -monitor renal function 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 Platelets down to 15,000. nasal packing in place. no respiratory distress. speaking in full sentences. no abdomen pain. no vomiting. no chest pain. breathing on oxymask Review of Systems Review of Systems: All systems reviewed & are unremarkable except as noted in HPI & below Physical Exam Constitutional: WD/WN, vitals as above comfortable Eyes: PERRL, conjunctivae normal, anicteric sclerae EOM intact bilaterally ENMT: Nose: + nare abnormality (nasal packing) Neck: normal visual inspection Respiratory: normal respiratory effort (on oxymask) and able to speak in complete sentences Cardiovascular: Rate/Rhythm: regular rate and regular rhythm Gastrointestinal (Abdomen): normal bowel sounds, soft, nontender, no hepatosplenomegaly Musculoskeletal: Head/Neck/Chest: normocephalic and head atraumatic Neurologic: PERRL, EOMI, accommodation nl, no face palsy, no dysarthria Psychiatric: A+Ox3, euthymic affect Results & Data ([facility]) Vital Signs (Past 12 Hours) Vital Signs Temp Pulse Pulse Pulse Resp BP BP 05/22/19 07:28 36.8 C 118 H 16 116/43 L 05/22/19 03:17 80 20 112/75 05/22/19 00:17 89 05/21/19 23:30 36.5 C 101 H 18 120/70 Pulse Ox 05/22/19 07:28 90 05/22/19 03:17 99 05/22/19 00:17 05/21/19 23:30 95
--- NOTE | 2019-05-22 09:17 | Pharmacy Report ---
Pharmacy Glycemic Short Note 2 - Date of Service May 22, 2019 - Glycemic Short BSG Results (Last 24 hours): 05/20/19 05/20/19 05/21/19 11:40 16:31 11:46 Glucose POC Glucose 285 H 188 H 177 H 05/21/19 05/21/19 05/22/19 16:52 20:10 06:27 Glucose 94 POC Glucose 89 135 H OUTPATIENT ANTIDIABETIC REGIMEN: * Novolog 3 units SC TIDM * Lantus 24-36 units SC based on blood sugar * A1c = 5.8 % 03/25/19 - may be unreliable d/t severe anemia ASSESSMENT: * Last dose of dexamethasone 40 mg PO was given last evening * Dexamethasone 40 mg restarted today due to patient preference - will likely be continued until Saturday * Loosened CF/CR initially, but will revert back to previous 10:2.5 due to steroid restart * BSGs yesterday ranging 89-177 mg/dL * Patient received 120 units of insulin * 80 units of basal (50 of which was NPH to cover dexamethasone) * 40 units of prandial/correctional insulin * Patient considering possible transfer to [facility] PLAN FOR INPATIENT GLYCEMIC CONTROL: * Basal insulin * Continue current Lantus scale HS (see EHR for details) * NPH 40 units this afternoon with dexamethasone * Bolus insulin - continue * NovoLog per scale ACHS with one overnight check * Goal Range: Low 120 mg/dL - High 150 mg/dL * Correction Factor: 10 mg/dL/unit * Nutritional / Prandial insulin per carb ratio of 1 unit per 2.5 grams CHO consumed DISCHARGE: * If no steroids upon discharge, then patient can likely be discharged on home regimen.
[2019-05-22] MEDS ORDERED: dexAMETHasone 4 MG TAB PO ONE (13:15)
--- NOTE | 2019-05-22 13:33 | Palliative Care Progress Note ---
Date of Service May 22, 2019 Assessment & Plan (1) Goals of care, counseling/discussion: -Patient's platelets continue to drop. Despite them being 15k, she had recurrent epistaxis on Saturday and had to have the nasal rhino-rocket placed again. She is requiring very frequent platelet transfusions that are proving to be ineffective. The steroids are not improving the situation. -Patient is frustrated today. She stated, "I feel great! How is my only option to go home and ? That's not an acceptable option for me right now." -Patient said she just wants to make it through until Saturday to be discharged and go to her second opinion/follow-up on Saturday in [place]. -Patient really not willing to discuss anything else at this time. I mentioned about the possibility of needing tertiary care for nasal cautery procedure. Patient not interested in talking about evaluation at [facility] at this time. -I have nothing further to add at this time. Please contact us with any further palliative care needs. (2) Anterior epistaxis: (3) Thrombocytopenia: (4) Chronic respiratory failure: Subjective Saw patient again at the request of DR. Edmond. Patient now has the nasal rocket back in right right nare. Dried blood on face. Kristyn is feeling frustrated and down today. No pain ro discomfort. Patient states, "I feel great! How is my only option to go home and ? That's not an acceptable option for me right now." Review of Systems Review of Systems: + weakness no SOB at rest + edema; no chest pain no abdominal pain and no nausea no pain no confusion Physical Exam Constitutional: + ill appearing and + obese ENMT: Nose: + external nose abnormality (nasal plugs present. Dried blood on nose and face) Respiratory: not tachypneic Auscultation: + diminished lung sounds Cardiovascular: Rate/Rhythm: + irregularly irregular Gastrointestinal (Abdomen): Inspection/Auscultation: normal bowel sounds Percussion/Palpation: abdomen soft Neurologic: moves all extremities and awake; not confused Psychiatric: Orientation: oriented x 3 Insight: good insight Results & Data Vital Signs (Past 12 Hours) Vital Signs Temp Pulse Pulse Resp BP Pulse Ox 05/22/19 11:41 36.8 C 117 H 20 122/71 89 L 05/22/19 07:28 36.8 C 118 H 16 116/43 L 90 05/22/19 03:17 80 20 112/75 99 Coding Level of Care Code 47165 Subseq Hosp Care Lvl 3 Diagnoses Goals of care, counseling/discussion Z71.89 Anterior epistaxis R04.0 Thrombocytopenia D69.6 Chronic respiratory failure J96.10 Time Spent (min) 35 Time Spent Midlevel 35 minutes with >50% of the time spent at bedside with patient discussing condition and GOC.
[2019-05-22] MEDS ORDERED: NovoLIN-N (NPH) PER UNIT CHARGE SQ ONE (13:45)
[2019-05-22] MEDS: INSULIN GLARGINE SOLOSTAR 100 UNITS/ML 3 ML PEN SC SCH (21:16)
[2019-05-23] MEDS: HYDROmorphone INJ 1 MG/ML SYRINGE IV PRN ×4 (02:54→23:49)
[2019-05-23] MEDS: SODIUM CHLORIDE 0.65% NA SOLN 45 ML (OCEAN) SCH ×4 (05:30→20:30)
[2019-05-23] MEDS ORDERED: NovoLIN-N (NPH) PER UNIT CHARGE SQ SCH (09:00)
[2019-05-23 09:06] LABS: Hematocrit (blood only) 30.9 % (37-47); Hemoglobin 9.3 g/dL (12.0-16.0); Mean Corpuscular Hemoglobin 26.2 pg (25-34); RDW Coefficient of Variation 17.8 % (11.5-14.5); RDW Standard Deviation 56.4 fL (36.4-46.3); Red Blood Count 3.55 M/uL (4.2-5.4); White Blood Count 12.47 K/uL (4.8-10.8)
[2019-05-23 09:07] LABS: Platelet Count 17 K/uL (130-400)
[2019-05-23] MEDS: AMLODIPINE BESYLATE 5 MG TAB PO SCH ×2 (09:07→20:15)
[2019-05-23] MEDS: MAGNESIUM CHLORIDE 64MG DELAYED REL TAB PO SCH ×2 (09:08→20:16)
[2019-05-23] MEDS: dexAMETHasone 4 MG TAB PO SCH (09:09)
[2019-05-23] MEDS: RIFAXIMIN 550 MG TABLET PO SCH ×2 (09:12→20:18)
[2019-05-23] MEDS: cephALEXin 250 MG CAP PO SCH ×4 (09:14→20:17)
[2019-05-23] MEDS: METOPROLOL SUCC 50MG EXT REL TAB PO SCH ×2 (09:15→17:57)
[2019-05-23] MEDS: NYSTATIN POWDER 15GM BTL EXT SCH ×2 (09:17→22:26)
[2019-05-23] MEDS: LIDOCAINE 5% 1 PATCH TD SCH (09:18)
[2019-05-23 09:20] LABS: Basophils % (auto) 0.8 %; Eosinophils # (auto) 0.05 K/uL (0-0.5); Eosinophils % (auto) 0.4 %; Immature Granulocytes # (auto) 0.94 K/uL (0.00-0.02); Immature Granulocytes % (auto) 7.5 %; Lymphocytes # (auto) 0.53 K/uL (1.2-3.4); Lymphocytes % (auto) 4.3 %; Mean Corpuscular Hgb Conc 30.1 g/dL (32-36); Monocytes # (auto) 0.61 K/uL (0.11-0.59); Monocytes % (auto) 4.9 %; Neutrophils # (auto) 10.24 K/uL (1.4-6.5); Neutrophils % (auto) 82.1 %; Nucleated RBC # (auto) 0.94 K/uL (0-0); Nucleated RBC % (auto) 7.5 %; Platelet Estimate SIGNIFIC DECREASED (Normal); Polychromasia 1+; Tear Drop Cells 1+
[2019-05-23 09:25] LABS: BUN Creatinine Ratio 67.8 (10-20); Calcium 8.8 mg/dl (8.5-10.1); Creatinine Clr Calc Pharmacy 54.3 ml/min; Est GFR (African American) 50.7; Est GFR (Non-African American) 43.7; Potassium 4.3 mmol/L (3.5-5.1)
[2019-05-23] MEDS: INSULIN ASPART 100 UNITS/ML VIAL SC SCH ×4 (09:26→20:20)
--- NOTE | 2019-05-23 09:50 | Hospitalist Progress Note ---
Date of Service May 23, 2019 Assessment & Plan (1) Epistaxis: Epistaxis: Thrombocytopenia: -recurrent hospitalizations for epistaxis requiring blood transfusions -to date patient had 1 unit or PRBC and 6 units of platelets; she had initial right nare nasal packing for 5 days from emergency room presentation and then on 05/20/2019 Patient had acute nose bleed episode when platelets around 15,000 and hospitalist obtained Emergency room physician to pack the right nare to stop the bleeding. Patient then got 1 unit of platelets. ENT Dr. Kadie Wong is updated -05/21/2019: no apparent nose bleed overnight, patient complains of nasal discomfort from the packing. hospitalist medical doctor notifying ENT office of [place]. otherwise, patient does not appear to have any respiratory compromise. Platelets are at 25,000 -finished 4 day course of the decadron 40 mg oral daily on 05/21/2019 -05/21/[address] Wong counseled patient that if patient were to re-bleed from the nose again, then consider transfer to tertiary care center such as [facility] in [place] for embolization of the nasal vessels -05/22/2019 platelets have decreased again to 15,000. Patient was asked whether she would prefer further evaluation at [facility] as her chance of re-bleeding is high. patient requests that the decadron be continued despite its ineffectiveness as I counseled her in regards to raising the platelet levels. she declines [facility] evaluation. Her oncologist, Dr. Christophe Light, called me and reported that previous trials of steroids have not worked in the past to raise the platelet counts. Patient would like to stay in the hospital at [facility] until Saturday05/25/2019 for close monitoring and then discharge so she could travel to [place] for Saturday morning clinic appointment with oncology in [place] -05/23/2019: Nasal packing in place. platelets at 17,000. patient denies acute pain currently. she reports that her cancer bone pain is controlled on current medications. she reports that she will need some pain medication prescriptions when she is to be discharged on Saturday05/25/2019 Metastatic breast cancer -patient follows with Dr. Christophe Light. was on 4 weekly Faslodex and Xgeva, but her last dose was in February 2020 and currently held for her low blood counts. -As per heme/oncology notes poor prognosis and not a candidate for cytotoxic chemotherapy. -patient reversed decision re: home with hospice service, woud like to seek second opinion from Dr. Mattson [facility]. previous hospitalist had contacted [facility] for possible transfer re: worsening of thrombocytopenia, Breast Ca with metastasis however Oncologist Dr. Mattson- Oncologist does not advise transfer of patient, and he had recommended Decadron 40mg po daily for 4 days total for possible ITP (steroid trial completed on 05/21/2019 and results was lack of improvement); patient has clinic appointment with [facility] for 2nd opinion on May per patient's preference Acute on chronic anemia Anemia -- Hg 6.5 Given 1 unit of packed RBCs on this admission and Hgb remains 8 or above Urticaria - patient requires Tylenol and Benadryl PO prior to blood transfusions Hypercalcemia Hypomagnesemia -Calcium levels are okay for now -check serum magnesium levels because of previously treated hypomagnesemia Acute on Chronic respiratory failure: TYE Obesity Hypoventilation syndrome -Bipap when sleeping acute on Chronic right-sided congestive heart failure -on Torsemide PO daily history of paroxysmal atrial fibrillation -Continue metoprolol succinate 50 mg twice daily -blood thinners are contraindicated Hypertension: -Continue amlodipine, metoprolol CKD (chronic kidney disease), stage III: -monitor renal function 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 platelets at 17,000. patient denies acute pain currently. she reports that her cancer bone pain is controlled on current medications. she reports that she will need some pain medication prescriptions when she is to be discharged on Saturday05/25/2019 no respiratory distress. no abdominal pain. no vomiting. no fever. no headache. no dizziness. Review of Systems Review of Systems: All systems reviewed & are unremarkable except as noted in HPI & below Physical Exam Constitutional: WD/WN, vitals as above comfortable Eyes: PERRL, conjunctivae normal, anicteric sclerae EOM intact bilaterally ENMT: Nose: + nare abnormality (nasal packing) Neck: normal visual inspection Respiratory: normal respiratory effort (on oxymask) and able to speak in complete sentences Cardiovascular: Rate/Rhythm: regular rate and regular rhythm Gastrointestinal (Abdomen): normal bowel sounds, soft, nontender, no hepatosplenomegaly Musculoskeletal: Head/Neck/Chest: normocephalic and head atraumatic Neurologic: PERRL, EOMI, accommodation nl, no face palsy, no dysarthria Psychiatric: A+Ox3, euthymic affect Results & Data ([facility]) Vital Signs (Past 12 Hours) Vital Signs Temp Pulse Pulse Pulse Resp BP Pulse Ox 05/23/19 07:28 36.7 C 97 H 16 128/71 98 05/23/19 04:10 36.6 C 91 H 18 128/76 98 05/23/19 00:06 86 05/22/19 23:29 36.9 C 105 H 20 111/78 97
[2019-05-23] MEDS: TORSEMIDE 10 MG TAB PO SCH (10:16)
[2019-05-23] MEDS: PANTOprazole 40 MG TAB PO SCH ×2 (10:18→20:18)
--- NOTE | 2019-05-23 13:50 | Pharmacy Report ---
Pharmacy Glycemic Short Note 2 - Date of Service May 23, 2019 - Glycemic Short BSG Results (Last 24 hours): 05/22/19 05/22/19 05/22/19 07:41 16:38 20:32 Glucose POC Glucose 110 H 183 H 199 H 05/22/19 05/23/19 05/23/19 23:26 07:37 08:29 Glucose 136 H POC Glucose 119 H 108 H 05/23/19 11:40 Glucose POC Glucose 174 H OUTPATIENT ANTIDIABETIC REGIMEN: * Novolog 3 units SC TIDM * Lantus 24-36 units SC based on blood sugar * A1c = 5.8 % 03/25/19 - may be unreliable d/t severe anemia ASSESSMENT: * Maite received 118 units of insulin yesterday * 75 units of basal (40 units of this was NPH to cover steroid induced hyperglycemia) * 43 units of bolus * BSGs ranged from 94 - 199 mg/dL * Pt remains on dexamethasone 40 mg po daily * continue NPH 45 units SQ daily plus tight CF/CR of 10/2.5 while on steroids * Fasting BSG of 108 mg/dL is at goal. No change to Lantus dose. PLAN FOR INPATIENT GLYCEMIC CONTROL: * Basal insulin * Continue Lantus 25-35 units SQ qHS * NPH 45 units SQ daily to be given with dexamethasone * Bolus insulin * NovoLog per scale ACHS with one overnight check * Goal Range: Low 120 mg/dL - High 150 mg/dL * Correction Factor: 10 mg/dL/unit * Nutritional / Prandial insulin per carb ratio of 1 unit per 2.5 grams CHO consumed DISCHARGE: * If no steroids upon discharge, then patient can likely be discharged on home regimen.
[2019-05-23] MEDS: OXYCODONE HCL IR 5 MG TAB (IMMEDIATE RELEASE) PO PRN (16:32)
[2019-05-23] MEDS: INSULIN GLARGINE SOLOSTAR 100 UNITS/ML 3 ML PEN SC SCH (20:22)
[2019-05-24] MEDS: OXYCODONE HCL IR 5 MG TAB (IMMEDIATE RELEASE) PO PRN ×2 (03:15→23:49)
[2019-05-24] MEDS: HYDROmorphone INJ 1 MG/ML SYRINGE IV PRN ×2 (05:37→20:29)
[2019-05-24] MEDS: SODIUM CHLORIDE 0.65% NA SOLN 45 ML (OCEAN) SCH ×4 (05:41→20:50)
[2019-05-24] MEDS ORDERED: MICONAZOLE NITRATE POWDER 43 GM EXT PRN (05:43)
[2019-05-24] MEDS: dexAMETHasone 4 MG TAB PO SCH (07:32)
[2019-05-24] MEDS: LIDOCAINE 5% 1 PATCH TD SCH (07:33)
[2019-05-24] MEDS: PANTOprazole 40 MG TAB PO SCH ×2 (07:36→20:29)
[2019-05-24] MEDS: METOPROLOL SUCC 50MG EXT REL TAB PO SCH ×2 (07:37→18:33)
[2019-05-24] MEDS: TORSEMIDE 10 MG TAB PO SCH (07:37)
[2019-05-24] MEDS: AMLODIPINE BESYLATE 5 MG TAB PO SCH ×2 (07:38→20:30)
[2019-05-24] MEDS: RIFAXIMIN 550 MG TABLET PO SCH ×2 (07:39→20:50)
[2019-05-24] MEDS: MAGNESIUM CHLORIDE 64MG DELAYED REL TAB PO SCH ×2 (07:39→20:31)
[2019-05-24] MEDS: cephALEXin 250 MG CAP PO SCH ×4 (07:40→20:33)
[2019-05-24] MEDS: NYSTATIN POWDER 15GM BTL EXT SCH ×2 (07:40→20:31)
--- NOTE | 2019-05-24 07:41 | Hospitalist Progress Note ---
Date of Service May 24, 2019 Assessment & Plan (1) Epistaxis: Epistaxis: Thrombocytopenia: -recurrent hospitalizations for epistaxis requiring blood transfusions -to date patient had 1 unit or PRBC and 6 units of platelets; she had initial right nare nasal packing for 5 days from emergency room presentation and then on 05/20/2019 Patient had acute nose bleed episode when platelets around 15,000 and hospitalist obtained Emergency room physician to pack the right nare to stop the bleeding. Patient then got 1 unit of platelets. ENT Dr. Kadie Wong is updated -05/21/2019: no apparent nose bleed overnight, patient complains of nasal discomfort from the packing. hospitalist medical doctor notifying ENT office of [place]. otherwise, patient does not appear to have any respiratory compromise. Platelets are at 25,000 -finished 4 day course of the decadron 40 mg oral daily on 05/21/2019 -05/21/[address] Wong counseled patient that if patient were to re-bleed from the nose again, then consider transfer to tertiary care center such as [facility] in [place] for embolization of the nasal vessels -05/22/2019 platelets have decreased again to 15,000. Patient was asked whether she would prefer further evaluation at [facility] as her chance of re-bleeding is high. patient requests that the decadron be continued despite its ineffectiveness as I counseled her in regards to raising the platelet levels. she declines [facility] evaluation. Her oncologist, Dr. Christophe Light, called me and reported that previous trials of steroids have not worked in the past to raise the platelet counts. Patient would like to stay in the hospital at [facility] until Saturday05/25/2019 for close monitoring and then discharge so she could travel to [place] for Saturday morning clinic appointment with oncology in [place] -05/23/2019: Nasal packing in place. platelets at 17,000. patient denies acute pain currently. she reports that her cancer bone pain is controlled on current medications. she reports that she will need some pain medication prescriptions when she is to be discharged on Saturday05/25/2019 Metastatic breast cancer -patient follows with Dr. Christophe Light. was on 4 weekly Faslodex and Xgeva, but her last dose was in February 2020 and currently held for her low blood counts. -As per heme/oncology notes poor prognosis and not a candidate for cytotoxic chemotherapy. -patient reversed decision re: home with hospice service, woud like to seek second opinion from Dr. Mattson [facility]. previous hospitalist had contacted [facility] for possible transfer re: worsening of thrombocytopenia, Breast Ca with metastasis however Oncologist Dr. Mattson- Oncologist does not advise transfer of patient, and he had recommended Decadron 40mg po daily for 4 days total for possible ITP (steroid trial completed on 05/21/2019 and results was lack of improvement); patient has clinic appointment with [facility] for 2nd opinion on May per patient's preference Acute on chronic anemia Anemia -- Hg 6.5 Given 1 unit of packed RBCs on this admission and Hgb remains 8 or above Urticaria - patient requires Tylenol and Benadryl PO prior to blood transfusions Hypercalcemia Hypomagnesemia -Calcium levels are okay for now -check serum magnesium levels because of previously treated hypomagnesemia Acute on Chronic respiratory failure: TYE Obesity Hypoventilation syndrome -Bipap when sleeping acute on Chronic right-sided congestive heart failure -on Torsemide PO daily history of paroxysmal atrial fibrillation -Continue metoprolol succinate 50 mg twice daily -blood thinners are contraindicated Hypertension: -Continue amlodipine, metoprolol CKD (chronic kidney disease), stage III: - renal function generally stable 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 denies dizziness. denies lightheadedness. no abdominal pain. no vomiting. nasal packing remains in place of right nare. no gross bleeding Review of Systems Review of Systems: All systems reviewed & are unremarkable except as noted in HPI & below Physical Exam Constitutional: WD/WN, vitals as above comfortable Eyes: PERRL, conjunctivae normal, anicteric sclerae EOM intact bilaterally ENMT: Nose: + nare abnormality (nasal packing) Neck: normal visual inspection Respiratory: normal respiratory effort (on oxymask) and able to speak in complete sentences Cardiovascular: Rate/Rhythm: regular rate and regular rhythm Gastrointestinal (Abdomen): normal bowel sounds, soft, nontender, no hepatosplenomegaly Musculoskeletal: Head/Neck/Chest: normocephalic and head atraumatic Neurologic: PERRL, EOMI, accommodation nl, no face palsy, no dysarthria Psychiatric: A+Ox3, euthymic affect Results & Data ([facility]) Vital Signs (Past 12 Hours) Vital Signs Temp Pulse Pulse Resp BP Pulse Ox 05/24/19 06:49 36.5 C 99 H 18 108/59 L 94 05/24/19 04:11 36.7 C 92 H 18 111/74 97 05/24/19 02:47 92 H 05/23/19 22:03 36.4 C L 83 18 112/78 98 05/23/19 20:41 36.6 C 107 H 18 109/65 96
[2019-05-24] MEDS ORDERED: INSULIN HUMAN NPH SC SCH (09:00)
[2019-05-24] MEDS: INSULIN ASPART 100 UNITS/ML VIAL SC SCH ×4 (09:15→20:35)
[2019-05-24] MEDS: INSULIN GLARGINE SOLOSTAR 100 UNITS/ML 3 ML PEN SC SCH (20:49)
[2019-05-25] MEDS ORDERED: cephALEXin 250 MG CAP PO SCH
[2019-05-25] MEDS: HYDROmorphone INJ 1 MG/ML SYRINGE IV PRN ×3 (02:39→13:59)
[2019-05-25] MEDS: SODIUM CHLORIDE 0.65% NA SOLN 45 ML (OCEAN) SCH ×3 (06:12→17:26)
--- NOTE | 2019-05-25 08:36 | Pharmacy Report ---
Pharmacy Glycemic Short Note 2 - Date of Service May 25, 2019 - Glycemic Short BSG Results (Last 24 hours): 05/24/19 05/24/19 05/24/19 11:44 16:36 20:05 POC Glucose 255 H 235 H 288 H 05/25/19 07:38 POC Glucose 93 OUTPATIENT ANTIDIABETIC REGIMEN: * Novolog sliding scale TIDM * Lantus 24-36 units SC HS based on blood sugar * A1c = 5.8 % 03/25/19 - may be unreliable d/t severe anemia ASSESSMENT: * Maite received 193 units of insulin yesterday * 80 units of basal (40 units of this was NPH to cover steroid induced hyperglycemia) * 113 units of bolus * BSGs ranged 134-288 mg/dL * Pt remains on dexamethasone 40 mg po daily * Will increase NPH today to 50 units to be given with dexamethasone 40 mg, as the patient had elevated BSGs throughout the day * Fasting BSG of 93 mg/dL - continue current Lantus scale PLAN FOR INPATIENT GLYCEMIC CONTROL: * Basal insulin * Continue Lantus 25-35 units SQ qHS * NPH 50 units SQ daily to be given with dexamethasone * Bolus insulin * NovoLog per scale ACHS * Goal Range: Low 120 mg/dL - High 150 mg/dL * Correction Factor: 10 mg/dL/unit * Nutritional / Prandial insulin per carb ratio of 1 unit per 2.5 grams CHO consumed DISCHARGE: * If no steroids upon discharge, then patient can be discharged on home regimen. * Insulin requirements are much greater when on dexamethasone, so if dexamethasone 40 mg PO is to be continued: * Increase Lantus 40 units SC BID * Continue home Novolog sliding scale - patient states that she feels comfortable managing based on blood sugar results * Patient aware that she will need to follow blood sugars closely during this time
[2019-05-25] MEDS: METOPROLOL SUCC 50MG EXT REL TAB PO SCH ×2 (08:40→17:25)
[2019-05-25] MEDS: cephALEXin 250 MG CAP PO SCH ×3 (08:40→17:20)
[2019-05-25] MEDS: dexAMETHasone 4 MG TAB PO SCH (08:40)
[2019-05-25] MEDS: MAGNESIUM CHLORIDE 64MG DELAYED REL TAB PO SCH (08:41)
[2019-05-25] MEDS: PANTOprazole 40 MG TAB PO SCH (08:41)
[2019-05-25] MEDS: TORSEMIDE 10 MG TAB PO SCH (08:41)
[2019-05-25] MEDS: AMLODIPINE BESYLATE 5 MG TAB PO SCH (08:41)
[2019-05-25] MEDS: RIFAXIMIN 550 MG TABLET PO SCH (08:42)
[2019-05-25] MEDS: LIDOCAINE 5% 1 PATCH TD SCH (08:43)
[2019-05-25] MEDS: INSULIN ASPART 100 UNITS/ML VIAL SC SCH ×3 (08:44→17:21)
[2019-05-25] MEDS: NYSTATIN POWDER 15GM BTL EXT SCH (08:45)
[2019-05-25] MEDS ORDERED: INSULIN HUMAN NPH SC SCH (09:00)
[2019-05-25 09:23] LABS: Hematocrit (blood only) 31.3 % (37-47); Hemoglobin 9.5 g/dL (12.0-16.0); Mean Corpuscular Hemoglobin 26.2 pg (25-34); Mean Corpuscular Hgb Conc 30.4 g/dL (32-36); Mean Corpuscular Volume 86.2 fL (80-100); Nucleated RBC # (auto) 1.06 K/uL (0-0); Platelet Count 11 K/uL (130-400); RDW Coefficient of Variation 17.9 % (11.5-14.5); RDW Standard Deviation 55.2 fL (36.4-46.3); Red Blood Count 3.63 M/uL (4.2-5.4); White Blood Count 13.28 K/uL (4.8-10.8)
[2019-05-25 09:24] LABS: Basophilic Stippling 1+; Platelet Estimate SIGNIFIC DECREASED (Normal); Tear Drop Cells 1+
[2019-05-25 09:38] LABS: ALC (manual) 0.53 K/uL (1.2-3.4); ANC (manual) 11.16 K/uL (1.4-6.5); Eosinophils # (manual) 0.13 K/uL (0-0.5); Lymphocytes # (manual) 0.53 K/uL (1.2-3.4); Metamyelocytes # (manual) 0.53 K/uL (0-0); Monocytes # (manual) 0.53 K/uL (0.11-0.59); Neutrophils # (manual) 11.16 K/uL (1.4-6.5)
[2019-05-25] MEDS ORDERED: FUROSEMIDE 20 MG in SYRINGE 0 ML IV ONE (15:01)
--- NOTE | 2019-05-25 16:47 | Hospitalist Progress Note ---
Date of Service May 25, 2019 Assessment & Plan (1) Epistaxis: Epistaxis: Thrombocytopenia: -recurrent hospitalizations for epistaxis requiring blood transfusions -in beginning of hospital stay patient had 1 unit or PRBC and 6 units of platelets; she had initial right nare nasal packing for 5 days from emergency room presentation and then on 05/20/2019 Patient had acute nose bleed episode when platelets around 15,000. hospitalist obtained Emergency room physician to pack t he right nare to stop the bleeding. Patient then got 1 additional unit of platelets -05/21/2019: no apparent nose bleed overnight, patient complains of nasal discomfort from the packing. hospitalist medical doctor notifying ENT office of [place]. otherwise, patient does not appear to have any respiratory compromise. Platelets are at 25,000 -finished planned 4 day course of the decadron 40 mg oral daily on 05/21/2019. Dr. Wong counseled patient that if patient were to re-bleed from the nose again, then consider transfer to tertiary care center such as [facility] in [place] for embolization of the nasal vessels -05/22/2019 platelets have decreased again to 15,000. Patient was asked whether she would prefer further evaluation at [facility] as her chance of re-bleeding is high. patient requests that the decadron be continued despite its ineffectiveness as I counseled her in regards to raising the platelet levels. she declines [facility] evaluation. Her oncologist, Dr. Christophe Light, called me and reported that previous trials of steroids have not worked in the past to raise the platelet counts likely because of bone marrow infiltration by cancer. Patient would like to stay in the hospital at [facility] until Saturday05/25/2019 for close monitoring and then discharge so she could travel to [place] for Saturday morning clinic appointment with oncology in [place] -05/23/2019: Nasal packing in place. platelets at 17,000. patient denies acute pain currently. she reports that her cancer bone pain is controlled on current medications. she reports that she will need some pain medication prescriptions when she is to be discharged on Saturday05/25/2019 -05/24/2019: no acute events. labs were not drawn to give comfort to patient -05/25/2019: patient requesting hospital discharge on 05/25/2019 so she can make arrangements for second opinion cancer treatment at clinic appointment with [facility] on 05/26/2019 platelets 11 thousand on AM labs of 05/25/2019, nasal packing in place. 2 units of platelets transfusion. 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 Oxycodone 5 mg every 4 hours as needed for pain (24 tablets) because of cancer pain also sent to her pharmacy Nasal packing to be removed on Saturday05/27/2019. There is a scheduled [facility] appointment with 05/27/2019 10:45 AM Provider Kadie Wong MD Department OTOLARYNGOLOGY [facility] and patient agree to keep this appointment 06/04/2019 12:00 PM Provider Lucio Larry MD Department General Internal Medicine [facility] on chronic anemia /Anemia in neoplastic disease -admission Hgb 6.5 on 05/14/2019 and Given 1 unit of packed RBCs on this admission with subsequent Hgb as 8 and Hgb currently above 9. -no current Urticaria; history of urticaria with blood transfusions in the past and patient requires Tylenol and Benadryl PO prior to blood transfusions Metastatic breast cancer -patient follows with Dr. Christophe Light. was on 4 weekly Faslodex and Xgeva, but her last dose was in February 2020 and currently held for her low blood counts. -As per heme/oncology notes poor prognosis and not a candidate for cytotoxic chemotherapy. -patient reversed decision re: home with hospice service, woudd like to seek second opinion from Dr. Mattson [facility]. previous hospitalist had contacted [facility] for possible transfer re: worsening of thrombocytopenia, Breast Ca with metastasis however Oncologist Dr. Mattson did not not advise transfer of patient, and he had recommended Decadron 40mg po daily for 4 days total for possible ITP (steroid trial completed on 05/21/2019 and results was lack of improvement) -continued decadron as per patient's preference has not prevented decrease in platelet counts without transfusions. 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 -A1c: 5.8 on 03/25/19 - (+) hyperglycemia from Decadron -Glycemic control consult following the patient -resume home insulin on discharge as no further decadron to be given at this time Hypercalcemia Hypomagnesemia -Calcium levels are okay for now -magnesium is at goal on 05/21/2019 from previously treated hypomagnesemia acute on Chronic right-sided congestive heart failure -on Torsemide PO daily Acute on Chronic respiratory failure with contributions from TYE and Obesity Hypoventilation syndrome -BIPAP with sleeping history of paroxysmal atrial fibrillation -Continue metoprolol succinate 50 mg twice daily -blood thinners are contraindicated Hypertension: -Continue amlodipine, metoprolol CKD (chronic kidney disease), stage III: - renal function generally stable History of hepatic encephalopathy -currently on Xifaxan -mental status at baseline Discharge Diagnosis Epistaxis Thrombocytopenia Metastatic breast cancer Acute on chronic anemia /Anemia in neoplastic disease Acute on Chronic respiratory failure with contributions from TYE and Obesity Hypoventilation syndrome history of paroxysmal atrial fibrillation Type 2 diabetes mellitus with mcfp current use of insulin Hypertension CKD (chronic kidney disease), stage III Admission and Anticipated Discharge Date Admission Date: May 12, 2019 Subjective patient requesting hospital discharge on 05/25/2019 so she can make arrangements for second opinion cancer treatment at clinic appointment with [facility] on 05/26/2019 platelets 11 thousand on AM labs of 05/25/2019, nasal packing in place. 2 units of platelets transfusion. repeat platelet counts to be checked before discharge no chest pain. no shortness of breath. no abdomen pain. no vomiting. no dizzines s. no lightheadedness Physical Exam Constitutional: WD/WN, vitals as above comfortable Eyes: PERRL, conjunctivae normal, anicteric sclerae EOM intact bilaterally ENMT: Nose: + nare abnormality (nasal packing) Neck: normal visual inspection Respiratory: normal respiratory effort (on oxymask) and able to speak in complete sentences Cardiovascular: Rate/Rhythm: regular rate and regular rhythm Gastrointestinal (Abdomen): normal bowel sounds, soft, nontender, no hepatosplenomegaly Musculoskeletal: Head/Neck/Chest: normocephalic and head atraumatic Neurologic: PERRL, EOMI, accommodation nl, no face palsy, no dysarthria Psychiatric: A+Ox3, euthymic affect Results & Data ([facility]) Vital Signs (Past 12 Hours) Vital Signs Temp Pulse Pulse Resp BP BP Pulse Ox 05/25/19 16:06 36.4 C L 98 H 20 108/74 90 05/25/19 15:18 107 H 05/25/19 14:53 36.9 C 106 H 20 113/71 92 05/25/19 14:23 36.9 C 106 H 20 113/71 92 05/25/19 14:08 36.5 C 96 H 16 106/70 05/25/19 14:01 36.5 C 95 H 16 102/67 05/25/19 13:48 36.5 C 95 H 18 101/65 91 05/25/19 10:46 36.4 C L 97 H 18 96/53 L 92 05/25/19 10:31 36.5 C 92 H 18 117/70 94 05/25/19 10:14 36.5 C 107 H 18 114/74 93 05/25/19 07:21 36.5 C 97 H 20 120/51 L 99 05/25/19 07:16 96 H
--- NOTE | 2019-05-25 17:23 | Discharge Summary ---
Date of Service May 25, 2019 Admission HPI Per Admitting Provider DATE OF ADMISSION: 05/12/2019 CHIEF COMPLAINT: Epistaxis. HISTORY OF PRESENT ILLNESS: A 64-year-old female with past medical history significant for metastatic breast cancer, currently on Faslodex and Xgeva every 4 weeks, last time was in February, supposed to get those treatment last week, but it was held because of her anemia and thrombocytopenia; history of idiopathic thrombocytopenia; rheumatoid arthritis used to be on methotrexate previously, no longer on treatment currently; history of atrial fibrillation, no longer on anticoagulation secondary to thrombocytopenia and epistaxis; history of DVT, used to be on Eliquis and discontinued and was on Lovenox that was stopped early this month because of epistaxis; history of sleep apnea, on CPAP; type 2 diabetes; chronic right-sided heart failure; history of hypercalcemia; chronic respiratory failure, on 3 liters oxygen chronically; hypertension; history of depression and anxiety; type 2 diabetes; hyperlipidemia; presents with epistaxis. She saw Hem/Onc on 05/08/2019 and blood work showed platelets less than 10 and hemoglobin 7.1 and she received a unit of platelet transfusion last Saturday and Saturday she received a unit of blood transfusion, but on Saturday evening, she started to have nosebleeds. Because of nose bleed she came to the ER. The bleeding is from right nostril, status post nose pack in the ER, also receiving antiplatelets. Platelets 8,000 in the ER, hemoglobin 7.6. The patient was given Afrin spray and Rhino pack to control the bleeding. The bleeding has persisted and Rapid Rhino was placed with the balloon. There is still a small amount of ooze from the right nostril. She is on oxygen mask. Denies any chest pain. No shortness of breath, no cough. No fever, no chills. No headache, no blurred vision. No nausea, no vomiting, no abdominal pain, no blood in the stools or black stools. No hematuria. She says her swelling in the legs has worsened. She walks with help of a walker at home and also a wheelchair. ALLERGIES: TO GABAPENTIN. PAST MEDICAL HISTORY: As mentioned above. PAST SURGICAL HISTORY: Laparoscopy and hysteroscopy, repair of incisional hernia. MEDICATIONS: Currently the patient is on amlodipine 2.5 mg p.o. b.i.d., buspirone 5 mg p.o. b.i.d., NovoLog 3 units t.i.d., Lantus sliding scale, metoprolol succinate 50 mg b.i.d., nystatin topical b.i.d., omeprazole 20 mg b.i.d., oxycodone 5 mg p.o. q. 6 hours p.r.n., torsemide 20 mg p.o. daily p.r.n., rifaximin 550 mg p.o. b.i.d. FAMILY HISTORY: Significant for father has diabetes, hypertension. Mother has hypertension, diabetes and kidney disease. SOCIAL HISTORY: , lives with . No smoking, no alcohol, no drug use. REVIEW OF SYMPTOMS: As per HPI. Rest of review of symptoms are negative. Admission Exam Per Admitting Provider GENERAL: The patient is moderate built, in mild distress because of the epistaxis. VITAL SIGNS: Temperature 36.2, pulse 77, respiratory rate 22, blood pressure 131/76, oxygen 98% on 3 liters. HEENT: No pallor, no icterus. Right now nasal packs seen in the right nostril. NECK: No neck masses. Supple. CARDIOVASCULAR: S1, S2 heard. Regular rate and rhythm. No murmur, no gallop. RESPIRATORY SYSTEM: Normal AP diameter. No accessory muscle use. No wheezing, no crackles. ABDOMEN: Soft, bowel sounds present, nontender. No distention. CENTRAL NERVOUS SYSTEM: Alert and oriented. Obeys commands. Moves extremities. EXTREMITIES: Bilateral lower extremity +2 edema with erythema seen. 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 Hypertension CKD (chronic kidney disease), stage III Discharge Exam Constitutional WD/WN, vitals as above comfortable Eyes PERRL, conjunctivae normal, anicteric sclerae EOM intact bilaterally ENMT Nose: + nare abnormality (nasal packing) Neck normal visual inspection Respiratory normal respiratory effort (on oxymask) and able to speak in complete sentences Cardiovascular Rate/Rhythm: regular rate and regular rhythm Gastrointestinal (Abdomen) normal bowel sounds, soft, nontender, no hepatosplenomegaly Musculoskeletal Head/Neck/Chest: normocephalic and head atraumatic Neurologic PERRL, EOMI, accommodation nl, no face palsy, no dysarthria Psychiatric A+Ox3, euthymic affect Discharge Data Allergies Allergy/AdvReac Type Severity Reaction Status Date / Time gabapentin AdvReac Hallucinati Verified 05/12/19 00:15 ng Consultations 05/12/19 00:07 ED Decision to Admit Stat 05/12/19 02:29 Consult Case Management - Discharge Planning Routine 05/12/19 08:38 Consult Palliative Care Routine 05/13/19 17:43 Consult Pulmonology Routine 05/14/19 13:17 Consult Otolaryngology (Head and Neck) Routine 05/22/19 08:07 Consult Palliative Care Routine Ordered Studies 05/12/19 02:29 US venous doppler LE Routine Hospital Course (1) Epistaxis: Epistaxis: Thrombocytopenia: -recurrent hospitalizations for epistaxis requiring blood transfusions -in beginning of hospital stay patient had 1 unit or PRBC and 6 units of platelets; she had initial right nare nasal packing for 5 days from emergency room presentation and then on 05/20/2019 Patient had acute nose bleed episode when platelets around 15,000. hospitalist obtained Emergency room physician to pack the right nare to stop the bleeding. Patient then got 1 additional unit of plat elets -05/21/2019: no apparent nose bleed overnight, patient complains of nasal discomfort from the packing. hospitalist medical doctor notifying ENT office of [place]. otherwise, patient does not appear to have any respiratory compromise. Platelets are at 25,000 -finished planned 4 day course of the decadron 40 mg oral daily on 05/21/2019. Dr. Wong counseled patient that if patient were to re-bleed from the nose again, then consider transfer to tertiary care center such as [facility] in [place] for embolization of the nasal vessels -05/22/2019 platelets have decreased again to 15,000. Patient was asked whether she would prefer further evaluation at [facility] as her chance of re-bleeding is high. patient requests that the decadron be continued despite its ineffectiveness as I counseled her in regards to raising the platelet levels. she declines [facility] evaluation. Her oncologist, Dr. Christophe Light, called me and reported that previous trials of steroids have not worked in the past to raise the platelet counts likely because of bone marrow infiltration by cancer. Patient would like to stay in the hospital at [facility] until Saturday05/25/2019 for close monitoring and then discharge so she could travel to [place] for Saturday morning clinic appointment with oncology in [place] -05/23/2019: Nasal packing in place. platelets at 17,000. patient denies acute pain currently. she reports that her cancer bone pain is controlled on current medications. she reports that she will need some pain medication prescriptions when she is to be discharged on Saturday05/25/2019 -05/24/2019: no acute events. labs were not drawn to give comfort to patient -05/25/2019: patient requesting hospital discharge on 05/25/2019 so she can make arrangements for second opinion cancer treatment at clinic appointment with [facility] on 05/26/2019 platelets 11 thousand on AM labs of 05/25/2019, nasal packing in place. 2 units of platelets transfusion. 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 Oxycodone 5 mg every 4 hours as needed for pain (24 tablets) because of cancer pain also sent to her pharmacy Nasal packing to be removed on Saturday05/27/2019. [facility] 10:45 AM Provider Kadie Wong MD Department OTOLARYNGOLOGY [facility] and patient agree to keep this appointment 06/04/2019 12:00 PM Provider Lucio Larry MD Department General Internal Medicine [facility] on chronic anemia /Anemia in neoplastic disease -admission Hgb 6.5 on 05/14/2019 and Given 1 unit of packed RBCs on this admission with subsequent Hgb as 8 and Hgb currently above 9. -no current Urticaria; history of urticaria with blood transfusions in the past and patient requires Tylenol and Benadryl PO prior to blood transfusions Metastatic breast cancer -patient follows with Dr. Christophe Light. was on 4 weekly Faslodex and Xgeva, but her last dose was in February 2020 and currently held for her low blood counts. -As per heme/oncology notes poor prognosis and not a candidate for cytotoxic chemotherapy. -patient reversed decision re: home with hospice service, woudd like to seek second opinion from Dr. Mattson [facility]. previous hospitalist had contacted [facility] for possible transfer re: worsening of thrombocytopenia, Breast Ca with metastasis however Oncologist Dr. Mattson did not not advise transfer of patient, and he had recommended Decadron 40mg po daily for 4 days total for possible ITP (steroid trial completed on 05/21/2019 and results was lack of improvement) -continued decadron as per patient's preference has not prevented decrease in platelet counts without transfusions. 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 -A1c: 5.8 on 03/25/19 - (+) hyperglycemia from Decadron -Glycemic control consult following the patient -resume home insulin on discharge as no further decadron to be given at this time Hypercalcemia Hypomagnesemia -Calcium levels are okay for now -magnesium is at goal on 05/21/2019 from previously treated hypomagnesemia acute on Chronic right-sided congestive heart failure -on Torsemide PO daily Acute on Chronic respiratory failure with contributions from TYE and Obesity Hypoventilation syndrome -BIPAP with sleeping history of paroxysmal atrial fibrillation -Continue metoprolol succinate 50 mg twice daily -blood thinners are contraindicated Hypertension: -Continue amlodipine, metoprolol CKD (chronic kidney disease), stage III: - renal function generally stable History of hepatic encephalopathy -currently on Xifaxan -mental status at baseline Discharge Diagnosis Epistaxis Thrombocytopenia Metastatic breast cancer Acute on chronic anemia /Anemia in neoplastic disease Acute on Chronic respiratory failure with contributions from TYE and Obesity Hypoventilation syndrome history of paroxysmal atrial fibrillation 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 Hypertension CKD (chronic kidney disease), stage III Total Time Total Time Spent Total Time Spent (In Minutes): 40 minutes Total Time Includes: Examination of the Patient, Discharge Planning, Medication Reconciliation and Communication With Other Providers Discharge Plan Discharge Items Patient Disposition: Home - Self-Care Reason For Visit: EPISTAXSIS Discharge Diagnosis: Epistaxis Thrombocytopenia Metastatic breast cancer Acute on chronic anemia /Anemia in neoplastic disease Acute on Chronic respiratory failure with contributions from TYE and Obesity Hypoventilation syndrome history of paroxysmal atrial fibrillation 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 Hypertension CKD (chronic kidney disease), stage III Condition on Discharge: Fair Activity: Per Instructions section Non-emergency contact: Primary Care Provider and Specialist Call non-emergency contact if: you have any medication questions Follow-up/Referrals: Lucio Larry MD [Primary Care Provider] - 05/29/19 11:45 am (FOLLOW UP APPT MADE 05/22/2019 @ 16:37 JLR) Diet: Carb Consistent or DM2, Heart Healthy and Vegetarian (Lacto-Ovo) Addtl Attending Provider Instructions: patient requesting hospital discharge on 05/25/2019 so she can make arrangements for second opinion cancer treatment at clinic appointment with [facility] on 05/26/2019 platelets 11 thousand on AM labs of 05/25/2019, nasal packing in place. 2 units of platelets transfusion. 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 Oxycodone 5 mg every 4 hours as needed for pain (24 tablets) because of cancer pain also sent to her pharmacy Nasal packing to be removed on Saturday05/27/2019. There is a scheduled [facility] appointment with 05/27/2019 10:45 AM Provider Kadie Wong MD Department OTOLARYNGOLOGY [facility] and patient agree to keep this appointment 06/04/2019 12:00 PM Provider Lucio Larry MD Department General Internal Medicine [facility] Pending Studies at Discharge: No Studies:: Epistaxis Thrombocytopenia Stand-Alone Forms: My [employer], Smoking Cessation Medications and DC Order Prescriptions: New cephalexin 250 mg Capsule 250 mg PO QID 2 Days Qty: 8 RF: 0 oxycodone 5 mg Tablet 5 mg PO Q4H PRN (Reason: pain) 4 Days Qty: 24 RF: 0 Continued omeprazole 20 mg capsule,delayed release(DR/EC) 20 mg PO BID RF: 0 torsemide 20 mg tablet 20 mg PO DAILY PRN (Reason: Edema) RF: 0 insulin aspart U-100 [Novolog Flexpen U-100 Insulin] 100 unit/mL (3 mL) insulin pen 3 unit SUBCUT TIDM RF: 0 metoprolol succinate 50 mg Tablet Extended Release 24 Hr 50 mg PO BID17 30 Days Qty: 30 RF: 2 Xifaxan 550 mg Tablet 550 mg PO BID 30 Days Qty: 60 RF: 2 oxycodone 5 mg tablet 5 mg PO Q6H Qty: 0 RF: 0 buspirone 5 mg tablet 5 mg PO BID RF: 0 amlodipine 2.5 mg tablet 2.5 mg PO BID RF: 0 nystatin [Nystop] 100,000 unit/gram powder 1 applic TOPICAL BID RF: 0 Lantus Solostar U-100 Insulin 100 unit/mL (3 mL) insulin pen See Rx Instructions .ROUTE .COMPLEX Qty: 15 RF: 5 Discharge Orders: Discharge Order (Routine); Ordered 05/25/19 Ordered By: Frandy Edmond Admission Data Admit Date/Time: 05/12/19 00:59 Attending Provider: Frandy Edmond Admit Provider: Donny Lutz Primary Care Provider: Lucio Larry Other Providers: Donny Lutz ; Frandy Edmond ; Tamela Walker ; [facility] ; Kadie Wong ; Lin Santos
[2019-05-25 17:46] LABS: Hematocrit (blood only) 29.2 % (37-47); Mean Corpuscular Hemoglobin 26.2 pg (25-34); Mean Corpuscular Hgb Conc 30.8 g/dL (32-36); Mean Corpuscular Volume 85.1 fL (80-100); Nucleated RBC # (auto) 0.99 K/uL (0-0); Nucleated RBC % (auto) 5.9 %; Platelet Count 27 K/uL (130-400); RDW Coefficient of Variation 17.8 % (11.5-14.5); Red Blood Count 3.43 M/uL (4.2-5.4)
[2019-05-25 17:53] LABS: Basophilic Stippling 1+; Basophils # (auto) 0.12 K/uL (0-0.2); Basophils % (auto) 0.7 %; Eosinophils # (auto) 0.08 K/uL (0-0.5); Eosinophils % (auto) 0.5 %; Immature Granulocytes # (auto) 1.28 K/uL (0.00-0.02); Immature Granulocytes % (auto) 7.7 %; Lymphocytes # (auto) 0.64 K/uL (1.2-3.4); Lymphocytes % (auto) 3.8 %; Monocytes # (auto) 0.99 K/uL (0.11-0.59); Monocytes % (auto) 5.9 %; Neutrophils # (auto) 13.59 K/uL (1.4-6.5); Neutrophils % (auto) 81.4 %; Platelet Estimate SIGNIFIC DECREASED (Normal)
== END 2019-05-25 19:30 | disposition hospice, home (50) | DRG 150 ==
LOC: ED 22:09 → SUATTDRO 05-12 00:59 → 2W 05-12 00:59